=== PATIENT | female | born 1965 ===

== ENCOUNTER → 2020-05-27 13:54 | Outpatient (BNVA) | payer MEDICAID, SELFPAY | PROVIDERS: PCP Internal Medicine; Referring Provider Internal Medicine; Visit Provider Surgery | DX: E66.9 Obesity, unspecified (principal); Z68.32 Body mass index [BMI] 32.0-32.9, adult; K91.2 Postsurgical malabsorption, not elsewhere classified; Z90.3 Acquired absence of stomach [part of]; Z98.84 Bariatric surgery status | CPT/HCPCS: 99212 ==

== ENCOUNTER 2020-12-10 09:57 | Outpatient (REF) | payer MEDICAID, SELFPAY ==
[2020-12-10 11:43] LABS: MANUAL DIFF FLAG NO
[2020-12-10 12:04] LABS: Basophils Percent Auto 0.2 % (0-2); Eosinophils Absolute Auto 0.1 X10*3/uL (0.0-0.4); Eosinophils Percent Auto 0.7 % (0-4); Hematocrit 36.2 % (37-47); Hemoglobin 11.1 g/dl (12.0-16.0); Imm Gran Abs Auto 0.04 X10*3/uL (0.00-0.03); Imm Gran Pct Auto 0.5 % (0.0-0.4); Lymphocytes Absolute Auto 2.4 X10*3/uL (1.2-4.9); Lymphocytes Percent Auto 28.1 % (20-40); Mean Corpuscular HGB Conc 30.7 g/dl (31.0-35.0); Mean Corpuscular Hemoglobin 26.9 pg (27.0-33.0); Mean Corpuscular Volume 87.7 fL (80-98); Mean Platelet Volume 11.5 fL (9.4-12.3); Monocytes Absolute Auto 0.4 X10*3/uL (0.1-1.2); Monocytes Percent Auto 4.3 % (2-11); Neutrophils Absolute Auto 5.6 X10*3/uL (2.0-8.3); Neutrophils Percent Auto 66.2 % (45-73); Platelet Count 177 X10*3/uL (160-400); Red Blood Count 4.13 X10*6/uL (4.20-5.50); White Blood Count 8.5 X10*3/uL (4.8-10.8)
[2020-12-10 12:17] LABS: Estimated Average Glucose 88 mg/dL; Hemoglobin A1c % 4.7 %
[2020-12-10 12:35] LABS: Alanine Aminotransferase 33 U/L (0-31); Albumin Level 3.7 g/dL (3.5-5.0); Alkaline Phosphatase 153 U/L (39-117); Anion Gap 11 (12-20); Aspartate Amino Transferase 44 U/L (5-31); Bilirubin Total 0.5 mg/dL (0.0-1.0); Blood Urea Nitrogen 17 mg/dL (9-16); C Reactive Protein 0.03 mg/dL (< or = 0.50); Calcium 8.8 mg/dL (8.4-10.2); Carbon Dioxide 20 mmol/L (22-29); Chloride 115 mmol/L (96-108); Cholesterol 148 mg/dL; Estimated Glomerular Filt Rate > 60; Glucose Fasting 89 mg/dL (60-99); HDL Cholesterol 79 mg/dL; Iron 73 mcg/dL (30-160); LDL Cholesterol Calculated 53 mg/dl; Percent Iron Saturation 23 % (15-50); Potassium 3.8 mmol/L (3.3-5.1); Sodium 142 mmol/L (135-145); Total Iron Binding Capacity 314 mcg/dL (228-428); Total Protein 6.3 g/dL (6.5-8.0); Triglycerides 83 mg/dL; Unsaturated Iron Binding 241 ug/dL
[2020-12-10 12:42] LABS: Thyroid Stimulating Hormone 0.58 uIU/mL (0.32-4.0)
[2020-12-10 12:45] LABS: Ferritin 42 ng/mL (10-250); TSH reflex Free T4 0.49 uIU/mL (0.32-4.0); Vitamin D 25-OH Total 18.2 ng/mL (>30)
[2020-12-10 12:57] LABS: Folate 17.2 ng/mL (> or = 4.0); Vitamin B12 636 pg/mL (200-900)
[2020-12-11 10:01] LABS: Insulin Level Total 4.7 uIU/mL
[2020-12-12 14:01] LABS: PTHI 63 pg/mL (14-64)
[2020-12-13 13:12] LABS: Vitamin B1 66 nmol/L (8-30)
[2020-12-13 16:51] LABS: Zinc 76 mcg/dL (60-130)
[2020-12-15 20:27] LABS: Vitamin A 49 mcg/dL (38-98)
== END 2020-12-10 09:58 | disposition home or self-care (01) ==
LOC: HO.LAB 09:57
PROVIDERS: Surgery; PCP Internal Medicine; Visit Provider Physician Assistant
DX: Z01.818 Encounter for other preprocedural examination (principal); E66.01 Morbid (severe) obesity due to excess calories; Z68.32 Body mass index [BMI] 32.0-32.9, adult; K91.2 Postsurgical malabsorption, not elsewhere classified; L98.7 Excessive and redundant skin and subcutaneous tissue; Z98.84 Bariatric surgery status; Z90.3 Acquired absence of stomach [part of]
CPT/HCPCS: 36415; 80053; 80061; 82306; 82607; 82728; 82746; 83036; 83525; 83540; 83970; 84425; 84443; 84590; 84630; 85025; 86140; 99212

== ENCOUNTER 2021-05-16 02:58 | Inpatient (IN) | payer MEDICAID, SELFPAY ==
[2021-05-16] VITALS (7 sets, daily range): BP systolic 109–129; BP diastolic 47–78; PULSE 60–79; RESP 14–19; TEMP 36.8–37.1; O2SAT 98–100; BMI 31.9
--- NOTE | ~2021-05-16 | CT_ITS ---
EXAMINATION: CT ABDOMEN AND PELVIS WITH CONTRAST CLINICAL INFORMATION: Follow-up partial SBO status post GBP COMPARISON: CT 05/16/2021 TECHNIQUE: Multidetector volumetric images were obtained from the superior aspect of the liver through the pubic symphysis following administration 85 mL of Omnipaque 350 intravenous contrast. Sagittal and coronal reformatted images were obtained on the technologist's workstation. Oral contrast: Yes This CT examination was performed using dose optimization techniques as appropriate, variously including the following: *Automated exposure control *Adjustment of mA and/or kV according to patient size (this includes techniques or standardized protocols for targeted exams where dose is matched to indication/reason for exam; i.e. extremities or head) *Use of iterative reconstruction technique DLP: 802 mGy-cm FINDINGS: LUNG BASES: The visualized lung bases are unremarkable. LIVER, GALLBLADDER, AND BILIARY TREE: The liver is normal in size, shape, and attenuation. No focal hepatic lesion or biliary ductal dilatation is present. The gallbladder is surgically absent. PANCREAS: Unremarkable. SPLEEN: Unremarkable. ADRENAL GLANDS: Unremarkable. KIDNEYS AND URETERS: The kidneys are normal in size, shape, and attenuation. No hydronephrosis, hydroureter, or calculi seen. No perinephric stranding. BLADDER: Question mild circumferential bladder wall thickening. No nodularity or bladder calculi. Correlation with urinalysis may be of benefit. GASTROINTESTINAL TRACT: Distal esophagus is unremarkable. Post surgical changes relating to Zane-en-Y gastric bypass are again noted. The small bowel small bowel anastomosis is now located within the left lower quadrant whereas in the previous study it was located in the right lower quadrant. There is significantly reduced mesenteric edema when compared with the prior study, though a small amount of edema remains. The previously described interloop free fluid is no longer seen and there has been clearance of the fecalized small bowel content. There is contrast within the colon reaching to the level of the splenic flexure. ABDOMINAL WALL: Small fat-containing periumbilical hernia. LYMPH NODES: Mildly prominent mesenteric lymph nodes similar to prior. No retroperitoneal, pelvic or abdominal lymphadenopathy seen. VASCULAR: Unremarkable. PELVIC VISCERA: The uterus and adnexa are unremarkable. OSSEOUS STRUCTURES: Post surgical changes from L5-S1 discectomy are again noted as well as the left flank neurostimulator which is unchanged. A left flank neurostimulator CT/CT abdomen pelvis w con IMPRESSION: Decompression of the small bowel since the previous study with apparent resolution of the torsed mesentery in the right lower quadrant. The jejunal jejunal anastomosis is now located within the left hemiabdomen. The previously seen partial obstruction may likely have been secondary to an internal hernia which has reduced. There is now decreased mesenteric edema. Mild circumferential bladder wall thickening of uncertain significance without a focal lesion or calculus seen. Correlation with urinalysis findings could be of benefit. Fleischner guidelines were followed.
--- NOTE | ~2021-05-16 | CT_ITS ---
EXAMINATION: CT ABDOMEN AND PELVIS WITH CONTRAST CLINICAL INFORMATION: Epigastric pain. COMPARISON: GI series 04/06/2019. CT abdomen pelvis 06/20/2018. TECHNIQUE: Multidetector volumetric images were obtained from the superior aspect of the liver through the pubic symphysis following administration 85 mL of Omnipaque 350 intravenous contrast. Sagittal and coronal reformatted images were obtained on the technologist's workstation. Oral contrast: No This CT examination was performed using dose optimization techniques as appropriate, variously including the following: *Automated exposure control *Adjustment of mA and/or kV according to patient size (this includes techniques or standardized protocols for targeted exams where dose is matched to indication/reason for exam; i.e. extremities or head) *Use of iterative reconstruction technique DLP: 888 mGy-cm FINDINGS: LUNG BASES: The visualized lung bases are unremarkable. LIVER, GALLBLADDER, AND BILIARY TREE: The liver is normal in size, shape, and attenuation. No focal hepatic lesion or biliary ductal dilatation is present. Cholecystectomy clips are present. PANCREAS: Unremarkable. SPLEEN: Unremarkable. ADRENAL GLANDS: Unremarkable. KIDNEYS AND URETERS: The kidneys are normal in size, shape, and attenuation. No hydronephrosis, hydroureter, or calculi seen. No perinephric stranding. BLADDER: Unremarkable. GASTROINTESTINAL TRACT: Moderate quantity of stool is present throughout the colon the appendix is not visualized. Reticulation of the small bowel mesentery is present within the right lower abdominal quadrant and adjacent small bowel segments are noted measuring up to 3.5 cm in diameter with relative mural hyperemia and equalization of the small bowel sulcus entericus. (Series 7 image 35). Findings are present adjacent to the anastomotic small bowel sutures within the right lower abdominal quadrant and focal twisting of the small bowel mesentery is present in this region (series 3 image 55). A gastric bypass and anterocolonic Zane-en-Y limb are noted. Trace interloop free intraperitoneal fluid is present in the right lower abdominal quadrant. No free intraperitoneal gas is noted. ABDOMINAL WALL: Periumbilical hernia containing noninflamed fat measuring 2 cm in diameter is visualized. LYMPH NODES: Normal. VASCULAR: Mild diffuse atherosclerosis. PELVIC VISCERA: Unremarkable. OSSEOUS STRUCTURES: An L5-S1 interbody device is noted. Left flank neurostimulator is noted with the electrostimulation lead traversing superiorly within the lower thoracic spine dorsal epidural space. CT/CT abdomen pelvis w con IMPRESSION: -Findings suspicious for partial small bowel obstruction secondary to either adhesions or an internal hernia within the right lower abdominal quadrant. An anterocolonic Zane-en-Y limb is noted with small bowel anastomotic sutures identified in the right lower abdominal quadrant. Twisting of the adjacent small bowel mesentery is noted with adjacent small bowel segments measuring up to 3.5 cm in diameter, exhibiting submucosal enhancement and mild adjacent interloop fluid. No free intraperitoneal gas. This result was discussed with Zoe Sage MD by telephone at 05/16/2021 6:32 AM and it was ascertained that the content and urgency of the report was understood at the time of direct communication.
--- NOTE | 2021-05-16 03:01 | ED.ABDPAIN ---
HPI - Abdominal Pain General Chief Complaint: Abdominal Pain Stated Complaint: ABD PAIN Time Seen by Provider: 05/16/21 03:01 Source: patient and EMS Mode of arrival: EMS Limitations: no limitations History of Present Illness MD elicited complaint: abdominal pain Pertinent past history: other (2019 s/p gastric bypass) Onset (ago): hour(s) (started 930pm) Pain Consistency: constant Location: epigastric Severity: moderate Quality: dull and burning Radiation: none Migration to: no migration Exacerbating factors: eating (started after she reports she ate a small bite of spicy chicken) Relieving factors: nothing Context: other (does not normally eat spicy food) Associated symptoms: denies other symptoms Related Data Home Medications Medication Instructions Recorded Confirmed acetazolamide 500 mg 500 mg PO BID 05/27/20 12/10/20 capsule,extended release calcium citrate 1,000 mg tablet 1,000 mg PO DAILY 05/27/20 12/10/20 cetirizine 10 mg capsule (Zyrtec) 10 mg PO DAILY 05/27/20 12/10/20 fluoxetine 40 mg capsule (Prozac) 40 mg PO DAILY 05/27/20 12/10/20 lurasidone 120 mg tablet (Latuda) 120 mg PO DAILY 05/27/20 12/10/20 nortriptyline 25 mg capsule 25 mg PO BEDTIME 05/27/20 12/10/20 prazosin 1 mg capsule 1 mg PO BEDTIME 05/27/20 12/10/20 topiramate 100 mg tablet (Topamax) 100 mg PO BEDTIME 05/27/20 12/10/20 trazodone 100 mg tablet 100 mg PO BEDTIME PRN 05/27/20 12/10/20 zolpidem 10 mg tablet (Ambien) 10 mg PO BEDTIME PRN 05/27/20 12/10/20 apixaban 2.5 mg tablet (Eliquis) 2.5 mg PO BID 12/10/20 12/10/20 Previous Rx's Medication Instructions Recorded pantoprazole 40 mg tablet,delayed 40 mg PO DAILY #28 tab 08/01/20 release cholecalciferol (vitamin D3) 1,250 1,250 mcg PO QWEEK #4 cap 12/11/20 mcg (50,000 unit) capsule Allergies Allergy/AdvReac Type Severity Reaction Status Date / Time amoxicillin Allergy Mild yeast Verified 12/10/20 10:05 infection gabapentin AdvReac Mild Swelling Verified 12/10/20 10:05 Meloxicam Allergy Unknown swelling Uncoded 12/10/20 10:05 Review of Systems Review of Systems Constitutional : No Weight loss, No Fever, No Chills ENT/Mouth : No sore throat, No Rhinorrhea Eyes: No Swelling, No Redness Cardiovascular : No Chest Pain, No SOB, NoEdema Respiratory : No Cough, No Sputum, No Wheezing Gastrointestinal : no Nausea, no Vomiting, positive Diarrhea, positive abdominal Pain, No Hematochezia, No Melena, no constipation Genitourinary : No Dysuria, No Urinary Frequency, No Hematuria, No Urgency Musculoskeletal : No joint pain, No Myalgias, No Joint Swelling Skin : No Skin Lesions, No rash Neuro : No Weakness, No Numbness, No Dizziness, No Headache Psych : No Anxiety/Panic, No Depression Heme/Lymph: No Bruising, No Lymphadenopathy Endocrine : No Polyuria, No Polydipsia All other systems reviewed and are negative. Physical Exam Vital Signs: Vital Signs: Last Vital Signs Temp 98.7 F 05/16/21 03:11 Pulse 64 05/16/21 06:44 Resp 15 05/16/21 06:44 BP 111/65 05/16/21 06:44 Pulse Ox 100 05/16/21 06:44 BMI result Body Mass Index 31.9 Appearance: Alert. Oriented X3. No acute distress. Eyes: Pupils equal, round and reactive to light. ENT: Pharynx normal. Neck: Normal inspection. Neck supple. CVS: Normal heart rate and rhythm. Pulses normal. Respiratory: No respiratory distress. Breath sounds normal. Abdomen: Soft and very mild epigastric pain but no mass felt or distention no rebound Skin: Skin warm and dry. Normal skin color. Normal skin turgor. Extremities: No lower extremity edema. No calf ttp Neuro: Oriented X 3. No motor deficit. No sensory deficit. Course Course Course Narrative: patient reports persistent pain worsening in epigastric area at this time given her increased pain CT scan ordered, IV morphine for pain ordered call from [facility] 631am - gastric bypass partial SBO in right lower quadrant ?adhesions - surgery was with [facility] in 2019 will put call out to Bariatric Surgery Maite ARGUELLES from bariatric surgery will review CT scan and call back with recommendations admit to bariatric surgery per Bill ARGUELLES 642am MDM - Abdominal Pain MDM Narrative Medical decision making narrative: 55 yo female with hx of bariatric surgery in 2019 here with c/o upper abdominal pain post eating a small bite of spicy chicken no n/v/d no constipation having normal stools at this time suspect some gastritis - SBO or internal hernia seems unusual given her pain started with a bite of spicy food. Labs, IV pepcid, GI cocktail and repeat exam Differential Diagnosis Differential diagnosis: Unlikely aortic dissection, bowel perforation or mesenteric ischemia Lab Data Result diagrams: 05/16/21 03:24 05/16/21 03:24 Labs: Lab Results 05/16/21 05/16/21 05/16/21 Range/Units 03:24 03:24 03:24 WBC 9.2 (4.8-10.8) X10*3/uL RBC 3.70 L (4.20-5.50) X10*6/uL Hgb 10.2 L (12.0-16.0) g/dl Hct 33.6 L (37.0-47.0) % MCV 90.8 (80.0-98.0) fL MCH 27.6 (27.0-33.0) pg MCHC 30.4 L (31.0-35.0) g/dl RDW 15.7 (11.0-16.0) % Plt Count 138 L (160-400) X10*3/uL MPV 10.4 (9.4-12.3) fL Immature Gran % (Auto) 0.2 (0.0-0.4) % Neut % (Auto) 57.9 (45-73) % Lymph % (Auto) 29.6 (20-40) % [place] % (Auto) 5.3 (2-11) % Eos % (Auto) 6.7 H (0-4) % Baso % (Auto) 0.3 (0-2) % Lymph # (Auto) 2.7 (1.2-4.9) X10*3/uL [place] # (Auto) 0.5 (0.1-1.2) X10*3/uL Eos # (Auto) 0.6 H (0.0-0.4) X10*3/uL Baso # (Auto) 0.0 (0.0-0.2) X10*3/uL Abs Immat Gran (auto) 0.02 (0.00-0.03) X10*3/uL Absolute Neuts (auto) 5.3 (2.0-8.3) x10*3/uL Absolute Nucleated RBC 0.000 (0.0-0.012) X10*3/uL Nucleated RBC % (auto) 0.0 (0.0-0.2) /100WBC Sodium 141 (135-145) mmol/L Potassium 3.9 (3.3-5.1) mmol/L Chloride 114 H (96-108) mmol/L Carbon Dioxide 22 (22-29) mmol/L Anion Gap 9 L (12-20) BUN 17 H (9-16) mg/dL Creatinine 0.81 (0.5-1.4) mg/dL Estim Creat Clear Calc 90.6 Estimated GFR > 60 Random Glucose 94 (60-115) mg/dL Calcium 8.4 (8.4-10.2) mg/dL Magnesium 2.0 (1.6-2.6) mg/dL Total Bilirubin 0.3 (0.0-1.0) mg/dL Direct Bilirubin < 0.2 (0.0-0.5) mg/dL AST 13 D (5-31) U/L ALT 15 (0-31) U/L Alkaline Phosphatase 107 D (39-117) U/L Troponin I High Sens < 3.5 (<3.5-17.0) ng/L Total Protein 5.6 L (6.5-8.0) g/dL Albumin 3.2 L (3.5-5.0) g/dL Lipase 12 (8-78) U/L ECG Data Attestation: I personally reviewed and interpreted this ECG as follows: ECG interpretation date: 05/16/21 ECG interpretation time: 03:55 Interpretation: Rate: 64 Rhythm: NSR Castaner: left, LVH Normal P waves. Normal DONNY. Normal QRS complex. ST T wave : normal no REEMA qTC: normal prior studies: no acute ischemia The study has been interpreted contemporaneously by me. Discharge Plan Discharge Clinical Impression: Partial small bowel obstruction Abdominal pain Qualifiers: Abdominal location: epigastric Qualified Code(s): R10.13 - Epigastric pain Prescriptions: No Action pantoprazole 40 mg tablet,delayed release (DR/EC) 40 mg PO DAILY Qty: 28 RF: 2 cholecalciferol (vitamin D3) 1,250 mcg (50,000 unit) capsule 1,250 mcg PO QWEEK Qty: 4 RF: 0 Zyrtec 10 mg capsule 10 mg PO DAILY RF: 0 acetazolamide 500 mg capsule, extended release 500 mg PO BID RF: 0 prazosin 1 mg capsule 1 mg PO BEDTIME RF: 0 trazodone 100 mg tablet 100 mg PO BEDTIME PRNRF: 0 topiramate [Topamax] 100 mg tablet 100 mg PO BEDTIME RF: 0 nortriptyline 25 mg capsule 25 mg PO BEDTIME RF: 0 zolpidem [Ambien] 10 mg tablet 10 mg PO BEDTIME PRNRF: 0 fluoxetine [Prozac] 40 mg capsule 40 mg PO DAILY RF: 0 Latuda 120 mg tablet 120 mg PO DAILY RF: 0 calcium citrate 1,000 mg tablet 1,000 mg PO DAILY RF: 0 Eliquis 2.5 mg tablet 2.5 mg PO BID RF: 0 PMFSH Past Medical History Attestation statement: The following information was validated with the patient. Medical History Anemia Anxiety Arthritis Back pain Carpal tunnel syndrome Depression Excess skin of upper extremity H/O nephrolithotomy with removal of calculi History of lipoma Hypercholesterolemia Lipoma Lymphedema Migraines Sleep apnea with use of continuous positive airway pressure (CPAP) Type 2 diabetes mellitus Surgical History H/O cervical discectomy History of back surgery History of Zane-en-Y gastric bypass Hx of section Hx of colonoscopy Hx of lumpectomy S/P carpal tunnel release S/P knee replacement Family History Family History Father No problems noted. Mother Arthritis Brother No problems noted. Brother No problems noted. Sister No problems noted. Sister No problems noted. Sister No problems noted. Sister No problems noted. Son No problems noted. Daughter No problems noted. Social History Social History Alcohol intake: never Patient Tobacco Use Status: Former Tobacco user Advance Directives: No Advance Directives Information Provided: No Patient : No
--- NOTE | 2021-05-16 03:15 | ECG_ITS ---
Test Reason : BRIANM Blood Pressure : / mmHG Vent. Rate : 064 BPM Atrial Rate : 064 BPM P-R Int : 122 ms QRS Dur : 092 ms QT Int : 414 ms P-R-T Axes : 054 003 012 degrees QTc Int : 427 ms Normal sinus rhythm Minimal voltage criteria for LVH, may be normal variant ( R in aVL ) Borderline ECG When compared with ECG of 28-MAR-2019 14:23, Vent. rate has decreased BY 39 BPM Referred By: Zoe Sage Electronically Signed By:ELO BELL
[2021-05-16] MEDS: Famotidine/PF 20 MG/2 ML VIAL IVPUSH ×3 (03:30→20:30)
[2021-05-16] MEDS: 0.9 % Sodium Chloride 1,000 ML 999 ML IVCONT (03:30)
[2021-05-16] MEDS: Magnesium Hydrox/Alum Hydrox 30 ML ORAL.SUSP 15 ML PO (03:30)
[2021-05-16 03:31] LABS: MANUAL DIFF FLAG NO
[2021-05-16 03:32] LABS: Basophils Percent Auto 0.3 % (0-2); Eosinophils Absolute Auto 0.6 X10*3/uL (0.0-0.4); Eosinophils Percent Auto 6.7 % (0-4); Hematocrit 33.6 % (37.0-47.0); Hemoglobin 10.2 g/dl (12.0-16.0); Imm Gran Abs Auto 0.02 X10*3/uL (0.00-0.03); Imm Gran Pct Auto 0.2 % (0.0-0.4); Lymphocytes Absolute Auto 2.7 X10*3/uL (1.2-4.9); Lymphocytes Percent Auto 29.6 % (20-40); Mean Corpuscular HGB Conc 30.4 g/dl (31.0-35.0); Mean Corpuscular Hemoglobin 27.6 pg (27.0-33.0); Mean Corpuscular Volume 90.8 fL (80.0-98.0); Mean Platelet Volume 10.4 fL (9.4-12.3); Monocytes Absolute Auto 0.5 X10*3/uL (0.1-1.2); Monocytes Percent Auto 5.3 % (2-11); Neutrophils Absolute Auto 5.3 x10*3/uL (2.0-8.3); Neutrophils Percent Auto 57.9 % (45-73); Platelet Count 138 X10*3/uL (160-400); Red Cell Distribution Width 15.7 % (11.0-16.0); White Blood Count 9.2 X10*3/uL (4.8-10.8)
[2021-05-16] MEDS: Lidocaine HCl Viscous 2 % 15 ML SOLUTION MUCOUS MEM (03:34)
[2021-05-16 03:51] LABS: Troponin-I High Sensitivity < 3.5 ng/L (<3.5-17.0)
[2021-05-16 03:59] LABS: Alanine Aminotransferase 15 U/L (0-31); Albumin Level 3.2 g/dL (3.5-5.0); Alkaline Phosphatase 107 U/L (39-117); Anion Gap 9 (12-20); Aspartate Amino Transferase 13 U/L (5-31); Bilirubin Direct < 0.2 mg/dL (0.0-0.5); Bilirubin Total 0.3 mg/dL (0.0-1.0); Blood Urea Nitrogen 17 mg/dL (9-16); Calcium 8.4 mg/dL (8.4-10.2); Carbon Dioxide 22 mmol/L (22-29); Chloride 114 mmol/L (96-108); Creatinine Clr Calc Pharmacy 90.6; Estimated Glomerular Filt Rate > 60; Glucose Random 94 mg/dL (60-115); Lipase 12 U/L (8-78); Potassium 3.9 mmol/L (3.3-5.1); Sodium 141 mmol/L (135-145); Total Protein 5.6 g/dL (6.5-8.0)
[2021-05-16] MEDS: iohexoL 350 MG/ML 100 ML INFUS..BTL 85 ML IV (05:24)
[2021-05-16] MEDS: Morphine Sulfate 4 MG/ML CARTRIDGE IVPUSH (05:35)
[2021-05-16 06:57] LABS: COVID-19 Test Negative (Negative)
[2021-05-16] MEDS: HYDROmorphone HCl 0.5 MG/0.5 ML SYRINGE IVPUSH (08:00)
[2021-05-16] MEDS: Lactated Ringers 1,000 ML 150 ML IVCONT ×2 (08:07→15:29)
--- NOTE | 2021-05-16 08:08 | PM.HPGS ---
History of Present Illness History of Present Illness Date of Service: 05/16/21 Chief complaint: Abdominal pain Narrative: Yaneth Ware is a 55 year old female who is s/p RNYGBP with Dr Escamilla at [facility] [place], patient states she initially had nausea and vomiting for the first 3 months was given a liquid to drink for 2 months, (carafate?) and this resolved over time. She states she has been doing very well sicnce then, no subsequent GI procedures, and has lost about 150 lbs. 2 days ago she started to have some epigastric discomfort and yesterday she ate some chicken around 6pm had minimal discomfort afterwards but was awakened by sever RLQ pain at 2 am. She denies any emesis or diarrhea. States last BM was yesterday afternoon and has had flatus since then. Review of Systems Review of Systems: see HPI Yes all other systems are reviewed and are negative Constitutional: Constitutional: Reports as per HPI Cardiovascular: Cardiovascular: Reports no additional cardiovascular complaints Respiratory: Respiratory: Reports no additional respiratory complaints Gastrointestinal: Gastrointestinal: Reports as per HPI Genitourinary: Genitourinary: Reports no additional female genitourinary complaints Musculoskeletal: Musculoskeletal: Reports no additional musculoskeletal complaints [facility] Past Medical History Medical History Anemia Anxiety Arthritis Back pain Carpal tunnel syndrome Depression Excess skin of upper extremity H/O nephrolithotomy with removal of calculi History of lipoma Hypercholesterolemia Lipoma Lymphedema Migraines Sleep apnea with use of continuous positive airway pressure (CPAP) Type 2 diabetes mellitus Family History Family History Father No problems noted. Mother Arthritis Brother No problems noted. Brother No problems noted. Sister No problems noted. Sister No problems noted. Sister No problems noted. Sister No problems noted. Son No problems noted. Daughter No problems noted. Surgical History Surgical History H/O cervical discectomy History of back surgery History of Zane-en-Y gastric bypass Hx of section Hx of colonoscopy Hx of lumpectomy S/P carpal tunnel release S/P knee replacement Social History Social History Alcohol intake: never Patient Tobacco Use Status: Former Tobacco user Advance Directives: No Advance Directives Information Provided: No Patient : No Meds Allergies Allergy/AdvReac Type Severity Reaction Status Date / Time amoxicillin Allergy Mild yeast Verified 12/10/20 10:05 infection gabapentin AdvReac Mild Swelling Verified 12/10/20 10:05 Meloxicam Allergy Unknown swelling Uncoded 12/10/20 10:05 Active Medications: Current Medications Famotidine (Famotidine/Pf 20 Mg/2 Ml Vial) 20 mg IVPUSH BID [facility] Hydromorphone HCl (Hydromorphone Hcl 0.5 Mg/0.5 Ml Syringe) 0.25 mg IVPUSH Q4H PRN; Protocol PRN Reason: Pain, Moderate (Pain Scale 4-6 Sodium Chloride (Ns) 1,000 mls @ 100 mls/hr IVCONT .Q10H [facility] Last Admin: 05/16/21 08:06 Dose: Not Given Documented by: Lactated Ringer's (Lr) 1,000 mls @ 150 mls/hr IVCONT .Q6H40M [facility] Last Admin: 05/16/21 08:07 Dose: 150 mls/hr Documented by: Ondansetron HCl (Ondansetron Hcl 4 Mg/2 Ml Vial) 4 mg IVPUSH Q8H PRN PRN Reason: Nausea Pharmacy Consult (Consult Rx Perform Med Rec) 1 each MISCELLANE ONCE PRN PRN Reason: Consult order Sodium Chloride (0.9 % Sodium Chloride Flush 3 Ml Syringe) 3 ml IVFLUSH QSHIFT [facility] Last Admin: 05/16/21 08:01 Dose: Not Given Documented by: Home Medications Medication Instructions Recorded Confirmed Last Taken Type acetazolamide 500 mg 500 mg PO BID 05/27/20 12/10/20 Unknown History capsule,extended release calcium citrate 1,000 mg tablet 1,000 mg PO DAILY 05/27/20 12/10/20 Unknown History cetirizine 10 mg capsule (Zyrtec) 10 mg PO DAILY 05/27/20 12/10/20 Unknown History fluoxetine 40 mg capsule (Prozac) 40 mg PO DAILY 05/27/20 12/10/20 Unknown History lurasidone 120 mg tablet (Latuda) 120 mg PO DAILY 05/27/20 12/10/20 Unknown History nortriptyline 25 mg capsule 25 mg PO BEDTIME 05/27/20 12/10/20 Unknown History prazosin 1 mg capsule 1 mg PO BEDTIME 05/27/20 12/10/20 Unknown History topiramate 100 mg tablet (Topamax) 100 mg PO BEDTIME 05/27/20 12/10/20 Unknown History trazodone 100 mg tablet 100 mg PO BEDTIME PRN 05/27/20 12/10/20 Unknown History zolpidem 10 mg tablet (Ambien) 10 mg PO BEDTIME PRN 05/27/20 12/10/20 Unknown History Physical Exam Vital Signs: Vital Signs: Last Vital Signs Temp 98.2 F 05/16/21 07:04 Pulse 76 05/16/21 07:04 Resp 14 05/16/21 07:04 BP 117/72 05/16/21 07:04 Pulse Ox 100 05/16/21 07:04 BMI result Body Mass Index 31.9 Const: General: cooperative, healthy appearing, comfortable, well developed, alert, awake and Physically active Nutritional Appearance: average body habitus Orientation/consciousness: patient oriented x3 Limitations: no limitations Resp: Effort & Inspection: normal respiratory effort Auscultation: clear to auscultation bilaterally Cardio: Rate: regular rate Rhythm: regular rhythm Heart sounds: normal S1 and S2 GI: Inspection: Yes normal to inspection, No distended and Yes incision (well healed laparoscpic incisions and vertical low abd) Palpation (GI): Soft to palpation, Tenderness to palpation present (GI) (tender epigastrium and right side of abd), Guarding due to palpation present (GI) (mnimal), not rigid, no hernias and no masses Auscultation: other (hyperactive BS right side) Rectal Exam - Female: deferred Neuro: General: patient oriented x3 Extrem: General: Yes normal to inspection, No no calf tenderness and No edema Results Results Labs: Short CBC 05/16/21 Range/Units 03:24 WBC 9.2 (4.8-10.8) X10*3/uL Hgb 10.2 L (12.0-16.0) g/dl Hct 33.6 L (37.0-47.0) % Plt Count 138 L (160-400) X10*3/uL BMP 05/16/21 03:24 Sodium 141 Potassium 3.9 Chloride 114 H Carbon Dioxide 22 BUN 17 H Creatinine 0.81 Calcium 8.4 Liver Function 05/16/21 Range/Units 03:24 Total Bilirubin 0.3 (0.0-1.0) mg/dL Direct Bilirubin < 0.2 (0.0-0.5) mg/dL AST 13 D (5-31) U/L ALT 15 (0-31) U/L Alkaline Phosphatase 107 D (39-117) U/L Albumin 3.2 L (3.5-5.0) g/dL CT scan - chest: report reviewed and image reviewed Assessment and Plan (1) Abdominal pain: Qualifiers: Abdominal location: epigastric Qualified Code(s): R10.13 - Epigastric pain Status: Acute (2) Partial small bowel obstruction: Status: Acute (3) History of Zane-en-Y gastric bypass: Status: Acute 55 yo female s/p GBP over 2 years ago with sudden onset of RLQ pain overnight. VSS, Labs wnl except for low protein and anemia. Lactic acid pending. CT abd reveals possible mesenteric twisting of SB which may represent internal hernia around j-j anastamosis. Physical exam is rather benign, pateint has been examined by Dr Victor who will decide treatment course. Admit to Dr Victor service, IVF, NPO, await lactic acid results and possible need for laparoscopic reduction of internal hernia. Quality Stroke Does the patient have a stroke diagnosis?: No VTE Prior VTE?: No VTE Risk Level:: Surgical - low VTE Device Contraindication: N/A - Device Ordered VTE Drug Contraindication: Treatment Not Indicated Procedures Date of Service Date of Service: 05/16/21
--- NOTE | 2021-05-16 08:18 | PC.NURSE ---
bariatric pa has been in to evaluate patient
[2021-05-16 08:42] LABS: Lactic Acid 0.8 mmol/L (0.5-2.0)
[2021-05-16 08:45] LABS: Appearance Urine CLOUDY; Color Urine YELLOW; Glucose Urine UA NEG (NEG); Leukocyte Esterase Urine NEG (NEG); Nitrite Urine NEG (NEG); PH 6.5 (5.0-8.0); Urine Blood NEG (NEG); Urine Ketones NEG (NEG); Urine Protein NEG (NEG-TRACE)
[2021-05-16] MEDS: Cyanocobalamin (Vitamin B-12) 1,000 MCG/ML VIAL 1000 MCG IM (10:37)
[2021-05-16] MEDS: Thiamine HCL 100 MG in 0.9 % Sodium Chloride 100 ML 202 MG IV (11:11)
[2021-05-16] MEDS: HYDROmorphone HCl 0.5 MG/0.5 ML SYRINGE 0.25 MG IVPUSH ×2 (11:12→20:30)
--- NOTE | 2021-05-16 13:34 | PHA.MEDREC ---
Pharmacy Consult ? Medication Reconciliation Pharmacy has completed the medication reconciliation. There are no remarkable issues for provider's attention. Contact [facility] and [facility] to confirm medications. Pantoprazole was DC'd. Patient reports she does not take Vitamin D or B, propranolol 20mg, aspirin, gabapentin, and ferrous gluconate/ Luann Rivas, BrantD
[2021-05-16] MEDS: Folic Acid 1 MG in 0.9 % Sodium Chloride 50 ML 100.4 MG IV (13:50)
--- NOTE | 2021-05-16 19:29 | PC.NURSE ---
pt awakes, respirations easy, n/l. pt c/o mid abd pain rating pain 6/10. pt up to restroom with steady even gait. no other complaints from pt.
--- NOTE | 2021-05-16 20:39 | PC.NURSE ---
pt medicated for pain rating 8/10 to mid abd area. pt resting comfortably.
--- NOTE | 2021-05-16 21:17 | PC.NURSE ---
Admission assessment completed by this RN. Pt a/o x4, reports generalized upper abdominal pain, pt medicated by primary RN with Dilaudid. Pt NPO, VSS, aware of plan of care. Awaiting for a bed on [facility].
[2021-05-17] VITALS (11 sets, daily range): BP systolic 102–142; BP diastolic 45–68; PULSE 60–73; RESP 14–18; TEMP 36.6–36.8; O2SAT 96–100
[2021-05-17] MEDS: HYDROmorphone HCl 0.5 MG/0.5 ML SYRINGE 0.25 MG IVPUSH ×5 (03:27→22:23)
[2021-05-17] MEDS: ondansetron HCL 4 MG/2 ML VIAL IVPUSH ×2 (03:33→18:32)
[2021-05-17 04:38] LABS: MANUAL DIFF FLAG NO
[2021-05-17 04:41] LABS: Basophils Percent Auto 0.3 % (0-2); Eosinophils Absolute Auto 0.3 X10*3/uL (0.0-0.4); Eosinophils Percent Auto 4.3 % (0-4); Hematocrit 31.2 % (37.0-47.0); Hemoglobin 9.5 g/dl (12.0-16.0); Imm Gran Abs Auto 0.02 X10*3/uL (0.00-0.03); Imm Gran Pct Auto 0.3 % (0.0-0.4); Lymphocytes Absolute Auto 2.9 X10*3/uL (1.2-4.9); Lymphocytes Percent Auto 37.7 % (20-40); Mean Corpuscular HGB Conc 30.4 g/dl (31.0-35.0); Mean Corpuscular Hemoglobin 27.6 pg (27.0-33.0); Mean Corpuscular Volume 90.7 fL (80.0-98.0); Mean Platelet Volume 10.6 fL (9.4-12.3); Monocytes Absolute Auto 0.4 X10*3/uL (0.1-1.2); Neutrophils Percent Auto 52.4 % (45-73); Platelet Count 112 X10*3/uL (160-400); Red Blood Count 3.44 X10*6/uL (4.20-5.50); Red Cell Distribution Width 15.7 % (11.0-16.0); White Blood Count 7.6 X10*3/uL (4.8-10.8)
[2021-05-17 05:06] LABS: Anion Gap 8 (12-20); Blood Urea Nitrogen 13 mg/dL (9-16); Calcium 8.1 mg/dL (8.4-10.2); Carbon Dioxide 24 mmol/L (22-29); Chloride 110 mmol/L (96-108); Creatinine Clr Calc Pharmacy 99.2; Estimated Glomerular Filt Rate > 60; Glucose Random 73 mg/dL (60-115); Potassium 3.4 mmol/L (3.3-5.1); Sodium 139 mmol/L (135-145)
--- NOTE | 2021-05-17 05:09 | PC.NURSE ---
Hospitalist ordered LR @ 150ml/hr. not NS. LR up and running on pump w/o difficulty. site intact. Pt sleeping at this time and in NAD. will continue to monitor pt.
[2021-05-17] MEDS: Lactated Ringers 1,000 ML 150 ML IVCONT (06:14)
[2021-05-17] MEDS: 0.9 % Sodium Chloride Flush 3 ML SYRINGE IVFLUSH (07:23)
[2021-05-17] MEDS: Famotidine/PF 20 MG/2 ML VIAL IVPUSH ×2 (09:13→19:30)
[2021-05-17] MEDS: Thiamine HCL 100 MG in 0.9 % Sodium Chloride 100 ML 202 MG IV (09:13)
--- NOTE | 2021-05-17 10:04 | P.PNGS_ITS ---
Subjective Subjective Date of Service: 05/17/21 Interval history: HD #1 for partial SBO s/p RNYGBP. Pt states that her pain is only partially relieved with dilaudid, has not been ambulating much. She states she has same, possible worse pain in epigastrium that radiates to RLQ, no nausea, emesis, flatus or BM's. She states she has some pressure discomfort when urinating. Urinalysis normal on admission. Physical Exam Vital Signs: Vital Signs: Last Vital Signs Temp 98.2 F 05/17/21 07:24 Pulse 62 05/17/21 07:24 Resp 16 05/17/21 07:31 BP 118/45 L 05/17/21 07:24 Pulse Ox 96 05/17/21 07:24 BMI result Body Mass Index 31.9 Const: Other: Upon arrival into room, patient talking comfortably on the phone. General: cooperative, healthy appearing and no acute distress Orientation/consciousness: patient oriented x3 Limitations: no limitations GI: Inspection: Yes normal to inspection and No distended Palpation (GI): Soft to palpation, nontender (tender to deep palpation over epigstrium, RLQ and less so over LLQ), Guarding due to palpation present (GI), not rigid and no masses Neuro: General: patient oriented x3 Extrem: Other: no compression stockings in place Objective Data Active Medications Famotidine (Famotidine/Pf 20 Mg/2 Ml Vial) 20 mg IVPUSH BID [facility] Last Admin: 05/17/21 09:13 Dose: 20 mg Documented by: SAMIRA Hydromorphone HCl (Hydromorphone Hcl 0.5 Mg/0.5 Ml Syringe) 0.25 mg IVPUSH Q4H PRN; Protocol PRN Reason: Pain, Moderate (Pain Scale 4-6 Last Admin: 05/17/21 07:31 Dose: 0.25 mg Documented by: SAMIRA Sodium Chloride (Ns) 1,000 mls @ 100 mls/hr IVCONT .Q10H [facility] Last Admin: 05/17/21 06:13 Dose: Not Given Documented by: CATHY Non-Admin Reason: Physician Held Med Thiamine HCl 100 mg/ Sodium (Chloride) 101 mls @ 202 mls/hr IV DAILY [facility] Last Admin: 05/17/21 09:13 Dose: 202 mls/hr Documented by: SAMIRA Folic Acid 1 mg/ Sodium (Chloride) 50.2 mls @ 100.4 mls/hr IV DAILY [facility] Last Infusion: 05/16/21 14:45 Dose: 0 mls/hr Documented by: ANGELES Potassium Chloride/Sodium Chloride () 20 meq in 1,000 mls @ 125 mls/hr IVCONT .Q8H [facility] Ondansetron HCl (Ondansetron Hcl 4 Mg/2 Ml Vial) 4 mg IVPUSH Q8H PRN PRN Reason: Nausea Last Admin: 05/17/21 03:33 Dose: 4 mg Documented by: CATHY Pharmacy Consult (Consult Rx Perform Med Rec) 1 each MISCELLANE ONCE PRN PRN Reason: Consult order Sodium Chloride (0.9 % Sodium Chloride Flush 3 Ml Syringe) 3 ml IVFLUSH QSHIFT [facility] Last Admin: 05/17/21 07:23 Dose: 3 ml Documented by: SAMIRA Labs CBC & Chem 7: 05/17/21 04:07 05/17/21 04:07 Labs: Laboratory Results - last 24 hr 05/17/21 05/17/21 04:07 04:07 MCV 90.7 MCH 27.6 MCHC 30.4 L RDW 15.7 Plt Count 112 L MPV 10.6 Immature Gran % (Auto) 0.3 Neut % (Auto) 52.4 Lymph % (Auto) 37.7 Johnston % (Auto) 5.0 Eos % (Auto) 4.3 H Baso % (Auto) 0.3 Lymph # (Auto) 2.9 Johnston # (Auto) 0.4 Eos # (Auto) 0.3 Baso # (Auto) 0.0 Abs Immat Gran (auto) 0.02 Absolute Neuts (auto) 4.0 Absolute Nucleated RBC 0.000 Nucleated RBC % (auto) 0.0 Anion Gap 8 L Estim Creat Clear Calc 99.2 Estimated GFR > 60 Random Glucose 73 Calcium 8.1 L Procedures Date of Service Date of Service: 05/17/21 Progress Note: A&P Assessment and plan (1) Partial small bowel obstruction: Status: Acute Assessment and Plan: HD #1, patient remains in ED due to nursing shortage on med surg floors. Pt has increased complaints of epigastric pain, and pain is now reported more in RLQ and less in LLQ. VSS, labs normal without increased neutrophils, including normal lactic acid yesterday. She is tender to deep palpation with minimal guarding when distracted. Continue NPO, IVF, labs ordered for tomorrow morning. Needs compression stockings due to limited ambulation. Case discussed with Dr Victor and we will repeat CT scan abd/pelvis today to re evaluate area of partial obstruction on CT yesterday. Patient is aware ofplan for today. (2) Abdominal pain: Status: Acute (3) History of Zane-en-Y gastric bypass: Status: Acute Fall Risk Details Current Medications: Current Medications Famotidine (Famotidine/Pf 20 Mg/2 Ml Vial) 20 mg IVPUSH BID [facility] Last Admin: 05/17/21 09:13 Dose: 20 mg Documented by: Hydromorphone HCl (Hydromorphone Hcl 0.5 Mg/0.5 Ml Syringe) 0.25 mg IVPUSH Q4H PRN; Protocol PRN Reason: Pain, Moderate (Pain Scale 4-6 Last Admin: 05/17/21 07:31 Dose: 0.25 mg Documented by: Sodium Chloride (Ns) 1,000 mls @ 100 mls/hr IVCONT .Q10H [facility] Last Admin: 05/17/21 06:13 Dose: Not Given Documented by: Thiamine HCl 100 mg/ Sodium (Chloride) 101 mls @ 202 mls/hr IV DAILY [facility] Last Admin: 05/17/21 09:13 Dose: 202 mls/hr Documented by: Folic Acid 1 mg/ Sodium (Chloride) 50.2 mls @ 100.4 mls/hr IV DAILY [facility] Last Infusion: 05/16/21 14:45 Dose: Infused Documented by: Potassium Chloride/Sodium Chloride () 20 meq in 1,000 mls @ 125 mls/hr IVCONT .Q8H [facility] Ondansetron HCl (Ondansetron Hcl 4 Mg/2 Ml Vial) 4 mg IVPUSH Q8H PRN PRN Reason: Nausea Last Admin: 05/17/21 03:33 Dose: 4 mg Documented by: Pharmacy Consult (Consult Rx Perform Med Rec) 1 each MISCELLANE ONCE PRN PRN Reason: Consult order Sodium Chloride (0.9 % Sodium Chloride Flush 3 Ml Syringe) 3 ml IVFLUSH QSHIFT [facility] Last Admin: 05/17/21 07:23 Dose: 3 ml Documented by: Time Spent With Patient Time: Total time spent is greater than 50% in coordination of care (as documented) at patient's floor/unit and/or counseling patient: Time with patient: 25 - 35 minutes Quality Stroke Does the patient have a stroke diagnosis?: No VTE Prior VTE?: No VTE Risk Level:: Surgical - low VTE Device Contraindication: N/A - Device Ordered VTE Drug Contraindication: Treatment Not Indicated
[2021-05-17] MEDS: Folic Acid 1 MG in 0.9 % Sodium Chloride 50 ML 100.4 MG IV (10:43)
[2021-05-17] MEDS: KCl 20 mEq in 0.45% Sod 20 MEQ/1,000 ML IV.SOLN 125 MEQ IVCONT ×2 (11:24→20:41)
[2021-05-17] MEDS: iohexoL 350 MG/ML 100 ML INFUS..BTL IV (13:49)
[2021-05-17] MEDS: Barium Sulfate Oral (Vanilla) 450 ML ORAL.SUSP 900 ML PO (13:51)
[2021-05-18] VITALS (7 sets, daily range): BP systolic 111–144; BP diastolic 56–76; PULSE 58–71; RESP 16–18; TEMP 36–36.9; O2SAT 96–100
[2021-05-18] MEDS: KCl 20 mEq in 0.45% Sod 20 MEQ/1,000 ML IV.SOLN 125 MEQ IVCONT ×2 (03:48→14:34)
[2021-05-18] MEDS: ondansetron HCL 4 MG/2 ML VIAL IVPUSH (05:24)
[2021-05-18] MEDS: HYDROmorphone HCl 0.5 MG/0.5 ML SYRINGE 0.25 MG IVPUSH ×3 (05:24→20:33)
[2021-05-18 06:17] LABS: Anion Gap 10 (12-20); Blood Urea Nitrogen 6 mg/dL (9-16); Calcium 8.4 mg/dL (8.4-10.2); Carbon Dioxide 25 mmol/L (22-29); Chloride 109 mmol/L (96-108); Creatinine Clr Calc Pharmacy 109.6; Estimated Glomerular Filt Rate > 60; Glucose Random 72 mg/dL (60-115); Sodium 140 mmol/L (135-145)
[2021-05-18] MEDS: Famotidine/PF 20 MG/2 ML VIAL IVPUSH ×2 (09:16→20:33)
[2021-05-18] MEDS: Folic Acid 1 MG in 0.9 % Sodium Chloride 50 ML 100.4 MG IV (09:19)
[2021-05-18] MEDS: Thiamine HCL 100 MG in 0.9 % Sodium Chloride 100 ML 202 MG IV (09:54)
--- NOTE | 2021-05-18 10:02 | PM.PNGS ---
Subjective Subjective Date of Service: 05/18/21 Interval history: 55 yo female HD # 2 for pSBO s/p RNYGBP. CT yesterday showed improvement of edema of SB with resolution of probable internal hernia and mesenteric twisting. Pt states her pain is improved in lower abdomen with less discomfort upon urination but still has epigastric pain. BM of solid stool x 1 last night and increase in flatus. Headache this am, but no nausea or emesis. Receiving dilauded every 6 - 8 hours and ambulating more now that she is in a bed on med surg. Physical Exam Vital Signs: Vital Signs: Last Vital Signs Temp 97.4 F 05/18/21 07:28 Pulse 63 05/18/21 07:28 Resp 18 05/18/21 07:28 BP 111/58 L 05/18/21 07:28 Pulse Ox 100 05/18/21 07:28 BMI result Body Mass Index 31.9 Const: General: cooperative, healthy appearing and no acute distress GI: Inspection: Yes normal to inspection Palpation (GI): Soft to palpation, nontender (tender over midepigastrium and very mildy in lower abd to deep palpation.), no guarding, not rigid, no hernias and no masses Extrem: Other: compression stockings in place bilaterally General: Yes normal to inspection and No calf tenderness Objective Data Active Medications Famotidine (Famotidine/Pf 20 Mg/2 Ml Vial) 20 mg IVPUSH BID [facility] Last Admin: 05/18/21 09:16 Dose: 20 mg Documented by: ANELEMA Hydromorphone HCl (Hydromorphone Hcl 0.5 Mg/0.5 Ml Syringe) 0.25 mg IVPUSH Q4H PRN; Protocol PRN Reason: Pain, Moderate (Pain Scale 4-6 Last Admin: 05/18/21 05:24 Dose: 0.25 mg Documented by: CASTILM Thiamine HCl 100 mg/ Sodium (Chloride) 101 mls @ 202 mls/hr IV DAILY [facility] Last Admin: 05/18/21 09:54 Dose: 202 mls/hr Documented by: ANELEMA Folic Acid 1 mg/ Sodium (Chloride) 50.2 mls @ 100.4 mls/hr IV DAILY [facility] Last Infusion: 05/18/21 09:53 Dose: 0 mls/hr Documented by: HO.COTEMA Potassium Chloride/Sodium Chloride () 20 meq in 1,000 mls @ 125 mls/hr IVCONT .Q8H [facility] Last Infusion: 05/18/21 09:43 Dose: 0 mls/hr Documented by: MARIANELA Ondansetron HCl (Ondansetron Hcl 4 Mg/2 Ml Vial) 4 mg IVPUSH Q8H PRN PRN Reason: Nausea Last Admin: 05/18/21 05:24 Dose: 4 mg Documented by: YAEL Pharmacy Consult (Consult Rx Perform Med Rec) 1 each MISCELLANE ONCE PRN PRN Reason: Consult order Sodium Chloride (0.9 % Sodium Chloride Flush 3 Ml Syringe) 3 ml IVFLUSH QSHIFT [facility] Last Admin: 05/18/21 07:03 Dose: Not Given Documented by: MARIANELA Non-Admin Reason: IV Running Labs CBC & Chem 7: 05/17/21 04:07 05/18/21 05:36 Labs: Laboratory Results - last 24 hr 05/18/21 05:36 Anion Gap 10 L Estim Creat Clear Calc 109.6 Estimated GFR > 60 Random Glucose [address] scan - abdomen: Radiologist's impression: Impressions Abdomen/Pelvis CT 05/17/21 13:50 IMPRESSION: Decompression of the small bowel since the previous study with apparent resolution of the torsed mesentery in the right lower quadrant. The jejunal jejunal anastomosis is now located within the left hemiabdomen. The previously seen partial obstruction may likely have been secondary to an internal hernia which has reduced. There is now decreased mesenteric edema. Mild circumferential bladder wall thickening of uncertain significance without a focal lesion or calculus seen. Correlation with urinalysis findings could be of benefit. Fleischner guidelines were followed. Procedures Date of Service Date of Service: 05/18/21 Progress Note: A&P Assessment and plan (1) Abdominal pain: Status: Acute Assessment and Plan: 55 yo woman HD #2 with resolution of pSBO most likely due to internal hernia. VSS remain stable, BMP today normal and well hydrated. I believe her epigastric discomfort is not related to the SBO or gastric ulcer, this may be due to stool in transverse colon and she is receiving famotidine bid. Will discuss starting clear bariatric liquids today with Dr Victor. Patient to ambulate at least qid. All information relayed to patient. (2) Partial small bowel obstruction: Status: Acute Assessment and Plan: Resolved (3) History of Zane-en-Y gastric bypass: Status: Acute Assessment and Plan: Assessment and Plan: Continue IV vitamin supplementation, will restart protein supplements when appropriate. Fall Risk Details Current Medications: Current Medications Famotidine (Famotidine/Pf 20 Mg/2 Ml Vial) 20 mg IVPUSH BID [facility] Last Admin: 05/18/21 09:16 Dose: 20 mg Documented by: Hydromorphone HCl (Hydromorphone Hcl 0.5 Mg/0.5 Ml Syringe) 0.25 mg IVPUSH Q4H PRN; Protocol PRN Reason: Pain, Moderate (Pain Scale 4-6 Last Admin: 05/18/21 05:24 Dose: 0.25 mg Documented by: Thiamine HCl 100 mg/ Sodium (Chloride) 101 mls @ 202 mls/hr IV DAILY [facility] Last Admin: 05/18/21 09:54 Dose: 202 mls/hr Documented by: Folic Acid 1 mg/ Sodium (Chloride) 50.2 mls @ 100.4 mls/hr IV DAILY [facility] Last Infusion: 05/18/21 09:53 Dose: Infused Documented by: Potassium Chloride/Sodium Chloride () 20 meq in 1,000 mls @ 125 mls/hr IVCONT .Q8H [facility] Last Infusion: 05/18/21 09:43 Dose: 0 mls/hr Documented by: Ondansetron HCl (Ondansetron Hcl 4 Mg/2 Ml Vial) 4 mg IVPUSH Q8H PRN PRN Reason: Nausea Last Admin: 05/18/21 05:24 Dose: 4 mg Documented by: Pharmacy Consult (Consult Rx Perform Med Rec) 1 each MISCELLANE ONCE PRN PRN Reason: Consult order Sodium Chloride (0.9 % Sodium Chloride Flush 3 Ml Syringe) 3 ml IVFLUSH QSHIFT [facility] Last Admin: 05/18/21 07:03 Dose: Not Given Documented by: Time Spent With Patient Time: Total time spent is greater than 50% in coordination of care (as documented) at patient's floor/unit and/or counseling patient: Time with patient: 25 - 35 minutes Quality Stroke Does the patient have a stroke diagnosis?: No VTE Prior VTE?: No VTE Risk Level:: Surgical - low VTE Device Contraindication: N/A - Device Ordered VTE Drug Contraindication: Treatment Not Indicated
--- NOTE | 2021-05-18 10:31 | MHC.CM.PN ---
Patient lives at home in [place]. Has a [employer] through [employer] 18hrs/wk. No equip, other services and does not drive. [employer] takes to appts. D/C plan is home w/[employer] via [employer] at D/C.
[2021-05-18] MEDS: 0.9 % Sodium Chloride Flush 3 ML SYRINGE IVFLUSH (14:34)
[2021-05-19] MEDS: HYDROmorphone HCl 0.5 MG/0.5 ML SYRINGE 0.25 MG IVPUSH ×3 (00:34→08:49)
[2021-05-19] MEDS: KCl 20 mEq in 0.45% Sod 20 MEQ/1,000 ML IV.SOLN 75 MEQ IVCONT (01:32)
[2021-05-19 03:42] VITALS: BP 124/58; PULSE 60; RESP 18; TEMP 36.1; O2SAT 100
[2021-05-19 07:04] VITALS: BP 116/58; PULSE 82; RESP 18; TEMP 36.5; O2SAT 100
--- NOTE | 2021-05-19 08:33 | P.PNGS_ITS ---
Subjective Subjective Date of Service: 05/19/21 Patient reports: no new complaints Interval history: HD # 3 for pSBO s/p RNYGBP. Patient has been tolerating clear liquid diet since yesterday without nausea, emesis and has been having less abd pain. No further BM's, flatus. Urinating without difficulty. Physical Exam Vital Signs: Vital Signs: Last Vital Signs Temp 97.7 F 05/19/21 07:04 Pulse 82 05/19/21 07:04 Resp 18 05/19/21 07:04 BP 116/58 L 05/19/21 07:04 Pulse Ox 100 05/19/21 07:04 BMI result Body Mass Index 31.9 Const: General: cooperative, healthy appearing and no acute distress GI: Inspection: Yes normal to inspection Palpation (GI): Soft to palpation, Tenderness to palpation present (GI) (minimally tender over mid epigastrium), no guarding, not rigid, no hernias and no masses Objective Data Active Medications Famotidine (Famotidine/Pf 20 Mg/2 Ml Vial) 20 mg IVPUSH BID [facility] Last Admin: 05/18/21 20:33 Dose: 20 mg Documented by: JOSE RAMON Hydromorphone HCl (Hydromorphone Hcl 0.5 Mg/0.5 Ml Syringe) 0.25 mg IVPUSH Q4H PRN; Protocol PRN Reason: Pain, Moderate (Pain Scale 4-6 Last Admin: 05/19/21 04:34 Dose: 0.25 mg Documented by: JOSE RAMON Thiamine HCl 100 mg/ Sodium (Chloride) 101 mls @ 202 mls/hr IV DAILY [facility] Last Infusion: 05/18/21 10:49 Dose: 0 mls/hr Documented by: MARIANELA Folic Acid 1 mg/ Sodium (Chloride) 50.2 mls @ 100.4 mls/hr IV DAILY [facility] Last Infusion: 05/18/21 09:53 Dose: 0 mls/hr Documented by: ANELEMA Potassium Chloride/Sodium Chloride () 20 meq in 1,000 mls @ 75 mls/hr IVCONT .[id number] [facility] Last Admin: 05/19/21 01:32 Dose: 75 mls/hr Documented by: JOSE RAMON Ondansetron HCl (Ondansetron Hcl 4 Mg/2 Ml Vial) 4 mg IVPUSH Q8H PRN PRN Reason: Nausea Last Admin: 05/18/21 05:24 Dose: 4 mg Documented by: YAEL Pharmacy Consult (Consult Rx Perform Med Rec) 1 each MISCELLANE ONCE PRN PRN Reason: Consult order Sodium Chloride (0.9 % Sodium Chloride Flush 3 Ml Syringe) 3 ml IVFLUSH QSHIFT [facility] Last Admin: 05/19/21 00:04 Dose: Not Given Documented by: JOSE RAMON Non-Admin Reason: IV Running Labs CBC & Chem 7: 05/17/21 04:07 05/18/21 05:36 Procedures Date of Service Date of Service: 05/19/21 Progress Note: A&P Assessment and plan (1) Partial small bowel obstruction: Status: Acute Assessment and Plan: 55 yo woman admitted 3days ago with pSBO most likely due to internal hernia, resolution of mesenteric twisiting and SBO with conservative treatment only. Pt is now tolerating clear liquid diet and is ready to go home. Patient will go home today and resume liquid diet only of 80 grams protien per day until all abdominal symptoms have resolved (likely 1 week). She will then restart her bariatric diet of 80 grams per day and no more than 8 oz of food at any meal. She will follow up with me in the office in about 2 weeks. (2) Abdominal pain: Status: Acute Assessment and Plan: Lower abd pain resolved, still has mid epigastric pain (3) History of Zane-en-Y gastric bypass: Status: Acute Assessment and Plan: Folllow up in office with me for nutrition recomendations. Fall Risk Details Current Medications: Current Medications Famotidine (Famotidine/Pf 20 Mg/2 Ml Vial) 20 mg IVPUSH BID [facility] Last Admin: 05/18/21 20:33 Dose: 20 mg Documented by: Hydromorphone HCl (Hydromorphone Hcl 0.5 Mg/0.5 Ml Syringe) 0.25 mg IVPUSH Q4H PRN; Protocol PRN Reason: Pain, Moderate (Pain Scale 4-6 Last Admin: 05/19/21 04:34 Dose: 0.25 mg Documented by: Thiamine HCl 100 mg/ Sodium (Chloride) 101 mls @ 202 mls/hr IV DAILY [facility] Last Infusion: 05/18/21 10:49 Dose: Infused Documented by: Folic Acid 1 mg/ Sodium (Chloride) 50.2 mls @ 100.4 mls/hr IV DAILY [facility] Last Infusion: 05/18/21 09:53 Dose: Infused Documented by: Potassium Chloride/Sodium Chloride () 20 meq in 1,000 mls @ 75 mls/hr IVCONT .[id number] [facility] Last Admin: 05/19/21 01:32 Dose: 75 mls/hr Documented by: Ondansetron HCl (Ondansetron Hcl 4 Mg/2 Ml Vial) 4 mg IVPUSH Q8H PRN PRN Reason: Nausea Last Admin: 05/18/21 05:24 Dose: 4 mg Documented by: Pharmacy Consult (Consult Rx Perform Med Rec) 1 each MISCELLANE ONCE PRN PRN Reason: Consult order Sodium Chloride (0.9 % Sodium Chloride Flush 3 Ml Syringe) 3 ml IVFLUSH QSHIFT [facility] Last Admin: 05/19/21 00:04 Dose: Not Given Documented by: Time Spent With Patient Time: Total time spent is greater than 50% in coordination of care (as documented) at patient's floor/unit and/or counseling patient: Time with patient: 15 - 24 minutes Quality Stroke Does the patient have a stroke diagnosis?: No VTE Prior VTE?: No VTE Risk Level:: Surgical - low VTE Device Contraindication: N/A - Device Ordered VTE Drug Contraindication: Treatment Not Indicated
--- NOTE | 2021-05-19 08:45 | PM.DS ---
DS: Providers Provider Date of Service: 05/19/21 Date of admission: 05/16/21 07:51 Primary care physician: Carri Reynoso MD DS: Diagnosis Discharge Diagnosis (1) Partial small bowel obstruction: Status: Acute (2) Abdominal pain: Status: Acute (3) History of Zane-en-Y gastric bypass: Status: Acute DS: Summary Hospital Course Hospital Course: 55 you woman s/p RNYGBP by Dr Escamilla in 2019, patient was admitted through the ED on 05/15/21 due to partial SBO diagnosed by CT scan. CT scan reveaaled mesenteric twisting and SB edema at J-J anastamosis likely due to internal hernia. Inocente was treaated conservatively with NPO and symptoms improved within 24 hours. She had a second abd CT on 05/17 which confirmed resoltuion of SBO. Patient had one formed BM, and was started on clear liquids on HD #2. On HD # 3 she was tolerating clear liquids and was discharged home. Time Spent with Patient Time attestation: Total time spent providing and/or coordinating discharge services: Discharge coordination time: Less than 30 minutes Quality: Stroke Does the patient have a stroke diagnosis?: No Physical Exam Vital Signs: Vital Signs: Last Vital Signs Temp 97.7 F 05/19/21 07:04 Pulse 82 05/19/21 07:04 Resp 18 05/19/21 07:04 BP 116/58 L 05/19/21 07:04 Pulse Ox 100 05/19/21 07:04 BMI result Body Mass Index 31.9 Discharge Plan Discharge Anticipated Discharge Date/Time: 05/19/21 08:41 Patient Disposition: Home, Self-Care Discharge Diagnosis: resolution of partial SBO Referrals: Carri Reynoso MD [Primary Care Provider] - 1 Week Discharge Medications: Continued celecoxib 200 mg Capsule 200 mg PO DAILY RF: 0 atorvastatin 10 mg Tablet 10 mg PO BEDTIME RF: 0 valacyclovir 1 gram Tablet 1,000 mg PO DAILY RF: 0 propranolol 60 mg Capsule,Extended Release 24 Hr 60 mg PO DAILY RF: 0 sennosides-docusate sodium [Senna Plus] 8.6-50 mg Tablet 2 tab-cap PO BEDTIME RF: 0 Linzess 290 mcg Capsule 290 mcg PO DAILY RF: 0 baclofen 10 mg Tablet 10 mg PO DAILY PRN (Reason: Muscle Spasm) RF: 0 Zyrtec 10 mg capsule 10 mg PO DAILY RF: 0 acetazolamide 500 mg capsule, extended release 500 mg PO BID RF: 0 prazosin 1 mg capsule 1 mg PO BEDTIME RF: 0 trazodone 100 mg tablet 100 mg PO BEDTIME RF: 0 topiramate [Topamax] 100 mg tablet 100 mg PO BEDTIME RF: 0 nortriptyline 25 mg capsule 25 mg PO BEDTIME RF: 0 zolpidem [Ambien] 10 mg tablet 10 mg PO BEDTIME RF: 0 fluoxetine [Prozac] 40 mg capsule 40 mg PO DAILY RF: 0 Latuda 120 mg tablet 120 mg PO DAILY RF: 0 calcium citrate 1,000 mg tablet 1,000 mg PO DAILY RF: 0 Discharge Orders: Discharge Order (Routine); Ordered 05/19/21 Ordered By: Maite Khan Diet: other Activity on Discharge: As tolerated Stand Alone Forms: Patient Portal Discharge page Care Plan Goals: healthy meal plan Health Concerns: weight loss Plan of Treatment: Liquid protien diet of at least 80 grams per day x 1 week, then resume her bariatric diet. Assessment: stable
[2021-05-19] MEDS: Famotidine/PF 20 MG/2 ML VIAL IVPUSH (08:50)
[2021-05-19] MEDS: 0.9 % Sodium Chloride Flush 3 ML SYRINGE IVFLUSH (08:56)
--- NOTE | 2021-05-19 09:59 | MHC.CM.PN ---
Addendum entered by Keily Giron 05/19/21 10:13: PATIENT FEELS SHE IS CAPABLE OF MANAGING TRANSPORT VIA SHUTTLE SERVICE. RN AWARE CM WILL PROVIDE TRANSPORT VOUCHER Original Note: PLAN IS HOME WITH NO NEED FOR SERVICES. RN AWARE OF PLAN. PATIENT WILL NEED ASSIST WITH TRANSPORTATION HOME.
== END 2021-05-19 12:57 | disposition home or self-care (01) | DRG 254 ==
LOC: HO.ED 03:52 → HO.EDOVER 07:58 → HO.S3 05-17 11:56
PROVIDERS: Admitting Provider Physician Assistant; Emergency Provider Emergency Medicine; PCP Internal Medicine; Visit Provider Physician Assistant
DX: K42.0 Umbilical hernia with obstruction, without gangrene (principal); Z20.822 Contact with and (suspected) exposure to COVID-19; Z79.1 Long term (current) use of non-steroidal anti-inflammatories (NSAID); Z88.0 Allergy status to penicillin; Z88.6 Allergy status to analgesic agent; Z98.84 Bariatric surgery status; Z79.899 Other long term (current) drug therapy
CPT/HCPCS: 36415; 74177; 80048; 80076; 81003; 83605; 83690; 83735; 84484; 85025; 87635; 93005; 99285; J1170; J2270; J2405; J3411; Q9967

== ENCOUNTER → 2021-05-21 13:15 | Outpatient (BNVA) | payer MEDICAID, SELFPAY | PROVIDERS: PCP Internal Medicine; Referring Provider Physician Assistant; Visit Provider Physician Assistant | DX: R10.13 Epigastric pain (principal); Z98.84 Bariatric surgery status | CPT/HCPCS: 99212 ==

== ENCOUNTER 2021-05-29 14:25 | Day surgery (SDC) | payer MEDICAID, SELFPAY ==
--- NOTE | 2021-05-28 10:13 | P.CONAN_ITS ---
Documented by User: Johanna Dalton NP 05/28/21 10:15 [facility] Active Problems Active Problems: All Active Problems (Updated 05/16/21 @ 06:33 by Zoe Sage DO) Abdominal pain (Acute) Partial small bowel obstruction (Acute) Vitamin D deficiency (Acute) Excess skin of upper extremity (Acute) Obesity (BMI 30-39.9) (Acute) Body mass index (BMI) of 32.0-32.9 in adult (Acute) History of Zane-en-Y gastric bypass (Acute) Intestinal malabsorption following gastrectomy (Acute) Past Medical History Medical History Anemia Anxiety Arthritis Back pain Carpal tunnel syndrome Depression Excess skin of upper extremity H/O nephrolithotomy with removal of calculi History of lipoma Hypercholesterolemia Lipoma Lymphedema Migraines Sleep apnea with use of continuous positive airway pressure (CPAP) Type 2 diabetes mellitus Family History Family History Father No problems noted. Mother Arthritis Brother No problems noted. Brother No problems noted. Sister No problems noted. Sister No problems noted. Sister No problems noted. Sister No problems noted. Son No problems noted. Daughter No problems noted. Surgical History Surgical History H/O cervical discectomy History of back surgery History of Zane-en-Y gastric bypass Hx of section Hx of colonoscopy Hx of lumpectomy S/P carpal tunnel release S/P knee replacement Social History Social History Household Members: None Alcohol intake: never Patient Tobacco Use Status: Former Tobacco user Advance Directives: No Advance Directives Information Provided: Yes service: No Current occupational status: disabled Meds Allergies Allergy/AdvReac Type Severity Reaction Status Date / Time amoxicillin Allergy Mild yeast Verified 05/21/21 13:27 infection gabapentin AdvReac Mild Swelling Verified 05/21/21 13:27 Meloxicam Allergy Unknown swelling Uncoded 05/21/21 13:27 Home Medications Medication Instructions Recorded Confirmed Last Taken Type acetazolamide 500 mg 500 mg PO BID 05/27/20 05/16/21 Unknown History capsule,extended release calcium citrate 1,000 mg tablet 1,000 mg PO DAILY 05/27/20 05/16/21 Unknown History cetirizine 10 mg capsule (Zyrtec) 10 mg PO DAILY 05/27/20 05/16/21 Unknown H istory fluoxetine 40 mg capsule (Prozac) 40 mg PO DAILY 05/27/20 05/16/21 Unknown History lurasidone 120 mg tablet (Latuda) 120 mg PO DAILY 05/27/20 05/16/21 Unknown History nortriptyline 25 mg capsule 25 mg PO BEDTIME 05/27/20 05/16/21 Unknown History prazosin 1 mg capsule 1 mg PO BEDTIME 05/27/20 05/16/21 Unknown History topiramate 100 mg tablet (Topamax) 100 mg PO BEDTIME 05/27/20 05/16/21 Unknown History trazodone 100 mg tablet 100 mg PO BEDTIME 05/27/20 05/16/21 Unknown History zolpidem 10 mg tablet (Ambien) 10 mg PO BEDTIME 05/27/20 05/16/21 Unknown History atorvastatin 10 mg tablet 10 mg PO BEDTIME 05/16/21 05/16/21 Unknown History baclofen 10 mg tablet 10 mg PO DAILY PRN 05/16/21 05/16/21 Unknown History celecoxib 200 mg capsule 200 mg PO DAILY 05/16/21 05/16/21 Unknown History linaclotide 290 mcg capsule 290 mcg PO DAILY 05/16/21 05/16/21 Unknown History (Linzess) propranolol 60 mg capsule,24 60 mg PO DAILY 05/16/21 05/16/21 Unknown History hr,extended release sennosides 8.6 mg-docusate sodium 2 tab-cap PO BEDTIME 05/16/21 05/16/21 Unknown History 50 mg tablet (Senna Plus) valacyclovir 1 gram tablet 1,000 mg PO DAILY 05/16/21 05/16/21 Unknown History Exam Exam Date and Time: May 28, 2021 1013 Pertinent Lab Results Pertinent Lab Results: Laboratory Tests 05/17/21 05/18/21 04:07 05:36 WBC 7.6 Hgb 9.5 L Hct 31.2 L Plt Count 112 L Sodium 140 Potassium 4.0 Chloride 109 H Carbon Dioxide 25 BUN 6 L D Creatinine 0.67 Narrative Narrative: EKG 05/2021 Vent. Rate : 064 BPM ? ? Atrial Rate : 064 BPM ?? P-R Int : 122 ms? QRS Dur : 092 ms ? ? QT Int : 414 ms ? ? ? P-R-T Axes : 054 003 012 degrees ?? QTc Int : 427 ms ? Normal sinus rhythm Minimal voltage criteria for LVH, may be normal variant ( R in aVL ) Borderline ECG When compared with ECG of 28-MAR-2019 14:23, Vent. rate has decreased BY? 39 BPM Assessment and Plan Assessment Anesthesia Assessment: Chart Reviewed Documented by User: Conner Simmons MD 05/29/21 15:16 [facility] Past Medical History Medical History Anemia Anxiety Arthritis Back pain Carpal tunnel syndrome Depression Excess skin of upper extremity H/O nephrolithotomy with removal of calculi History of lipoma Hypercholesterolemia Lipoma Lymphedema Migraines Sleep apnea with use of continuous positive airway pressure (CPAP) Type 2 diabetes mellitus Family History Family History Father No problems noted. Mother Arthritis Brother No problems noted. Brother No problems noted. Sister No problems noted. Sister No problems noted. Sister No problems noted. Sister No problems noted. Son No problems noted. Daughter No problems noted. Family history of problems with anesthesia: No Surgical History Surgical History H/O cervical discectomy History of back surgery History of Zane-en-Y gastric bypass Hx of section Hx of colonoscopy Hx of lumpectomy S/P carpal tunnel release S/P knee replacement History of Problems with Anesthesia: No Social History Social History Household Members: None Alcohol intake: never Patient Tobacco Use Status: Former Tobacco user Advance Directives: No Advance Directives Information Provided: Yes service: No Current occupational status: disabled Meds Allergies Allergy/AdvReac Type Severity Reaction Status Date / Time amoxicillin Allergy Mild yeast Verified 05/21/21 13:27 infection gabapentin AdvReac Mild Swelling Verified 05/21/21 13:27 Meloxicam Allergy Unknown swelling Uncoded 05/21/21 13:27 Home Medications Medication Instructions Recorded Confirmed Last Taken Type acetazolamide 500 mg 500 mg PO BID 05/27/20 05/16/21 Unknown History capsule,extended release calcium citrate 1,000 mg tablet 1,000 mg PO DAILY 05/27/20 05/16/21 Unknown History cetirizine 10 mg capsule (Zyrtec) 10 mg PO DAILY 05/27/20 05/16/21 Unknown History fluoxetine 40 mg capsule (Prozac) 40 mg PO DAILY 05/27/20 05/16/21 Unknown History lurasidone 120 mg tablet (Latuda) 120 mg PO DAILY 05/27/20 05/16/21 Unknown History nortriptyline 25 mg capsule 25 mg PO BEDTIME 05/27/20 05/16/21 Unknown History prazosin 1 mg capsule 1 mg PO BEDTIME 05/27/20 05/16/21 Unknown History topiramate 100 mg tablet (Topamax) 100 mg PO BEDTIME 05/27/20 05/16/21 Unknown History trazodone 100 mg tablet 100 mg PO BEDTIME 05/27/20 05/16/21 Unknown History zolpidem 10 mg tablet (Ambien) 10 mg PO BEDTIME 05/27/20 05/16/21 Unknown History atorvastatin 10 mg tablet 10 mg PO BEDTIME 05/16/21 05/16/21 Unknown History baclofen 10 mg tablet 10 mg PO DAILY PRN 05/16/21 05/16/21 Unknown History celecoxib 200 mg capsule 200 mg PO DAILY 05/16/21 05/16/21 Unknown History linaclotide 290 mcg capsule 290 mcg PO DAILY 05/16/21 05/16/21 Unknown History (Linzess) propranolol 60 mg capsule,24 60 mg PO DAILY 05/16/21 05/16/21 Unknown History hr,extended release sennosides 8.6 mg-docusate sodium 2 tab-cap PO BEDTIME 05/16/21 05/16/21 Unknown History 50 mg tablet (Senna Plus) valacyclovir 1 gram tablet 1,000 mg PO DAILY 05/16/21 05/16/21 Unknown History Exam Airway Mallampati Class: II TM Dist: >3cm Neck ROM: Full Loose/Missing/Broken Teeth: Yes Heart: [id number] Lungs: cta b/l Assessment and Plan Assessment Anesthesia Assessment: Anesthesia Plan Discussed Final Anesthetic Review Family History of Problems with Anesthesia: No History of Problems with Anesthesia: No NPO: Yes ASA Class: III Final Preanesthetic Review: No Changes in Pt Med Stat, Meds/Allgs Chart Reviewed, Consent Obtained/Reviewed and Anes Risks/Benef Reviewed Patient Risk: Intermediate Procedure Risk: Low Assessment/Block/Sedation in SS: Assess/Block/Sedation-SS Anesthetic Plan Anesthetic Plan: MAC: and Agree w/ Assess. and Plan Disposition: Standard PACU
--- NOTE | 2021-05-29 10:13 | MHC.SHP ---
Pre-Procedural Eval Section A Date of Service: 05/29/21 The patient is an INPATIENT: No The History & Physical has been completed within 30 days and I have reviewed it.: Yes Section B Chief Complaint: epigastric pain Relevant Family History (Specify if Yes): No Relevant Social History: None Present Medications: None Medical History: No relevant PMH History of Previous Operations: Relevant previous surgery/procedure and date(s) (Laparoscopic gastric bypass) Allergies: Allergies Allergy/AdvReac Type Severity Reaction Status Date / Time amoxicillin Allergy Mild yeast Verified 05/21/21 13:27 infection gabapentin AdvReac Mild Swelling Verified 05/21/21 13:27 Meloxicam Allergy Unknown swelling Uncoded 05/21/21 13:27 Review of Systems Sugical H&P ROS: Negative: Constitution, Cardiovascular, Respiratory, Neurological, Psychiatric, Hem-Onc, Allergic/Immunologic, Genitourinary, Musculoskeletal, Integumentary, Endocrine and Eyes/Ears/Nose/Throat and Yes, Specify: Gastrointestinal (epigastric pain) Exam Surgical H&P Exam: Normal: HEENT, Normal: Heart, Normal: Lungs, Normal: Extremities, Normal: Skin and Normal: Neurological and Significant Findings: Abdomen (epigastric tenderness) Plan Diagnosis/Plan: Unchanged (Upper endoscopy to assess etiology of the epigastric pain. Rule out anastomotic ulcer. The possibility of bleeding and perforation were discussed and patient is in agreement with the plan.) I have reviewed the history and physical and performed a pertinent physical examination on my patient. No changes have occurred unless specified.
[2021-05-29 15:07] VITALS: BP 104/60; PULSE 77; RESP 16; TEMP 36.6; O2SAT 100; BMI 30.9
[2021-05-29] MEDS: Lactated Ringers 1,000 ML 100 ML IVCONT (15:09)
[2021-05-29 16:03] LABS: COVID-19 Test Negative (Negative)
--- NOTE | 2021-05-29 16:38 | PM.OP ---
Brief Operative Note Date of Service: 05/29/21 Pre-op diagnosis: Epigastric pain Post-op diagnosis: same Procedure: PROCEDURE DATE: ?05/29/2021 PREOPERATIVE DIAGNOSIS: GERD, s/p gastric bypass POSTOPERATIVE DIAGNOSIS: ?Same as above. Normal endoscopy PROCEDURE: Zfrzispo-[id number] with biopsy Surgeon: ?Ed Victor M.D.. Ph.D. Instrument Technician Apprentice: ?None ? Anesthesia: IV sedation Estimated blood loss: ?Minimal FINDINGS AND PROCEDURE: ? OPERATIVE INDICATIONS: ?The patient is a 55 year old female known to me who underwent a laparoscopic gastric bypass by Dr. Escamilla. The patient was recently admitted to the hospital for a partial small bowel obstructions which resolved on its own. Since then she has been complaining of persistent epigastric pain which has not resolved despite dietary changes that were made as well as treatment with Pantoprazole and Carafate. Based on this information I recommended an upper endoscopy to evaluate the patient's symptoms.? Risks and complications of the surgery were discussed with the patient in advance particularly the possibility of perforation or bleeding that may require surgical intervention. The patient understood the risks and was in agreement with the plan. ? PROCEDURE: After informed consent was obtained by the patient, the patient was ?transferred to the Operating Room and was placed in the supine position.? After successful induction of IV sedation, a mouth block was placed and the patient was placed in the left lateral decubitus position. An upper endoscopy was performed next, the oropharynx and esophagus appeared within the normal limits. There was no hiatal hernia.? The z-line was smooth.The small pouch was entered, appeared to be of normal size. There was no gastritis and the gastrojejunostomy was somewhat narrow but patent. There was a retained suture but was not causing any issue. A biopsy was obtained from the gastric pouch. No significant bleeding was noted from any of the biopsy sites. There was no anastomotic ulcer.? At that point the scope was advanced into the proximal small intestine (proximal Zane limb) up to 70cm from incisors which appeared to be normal as well. The Zane limb and the pouch were decompressed and the scope was withdrawn from the patient's mouth. The patient was awaken and was transferred in stable condition to the Recovery Room for further care. I was present and performed all steps of the procedure. There were no residents to assist with this case. Ed Victor M.D., Ph.D. Surgeon: Rui Victor MD Anesthesia: MAC Was an Instrument Technician Apprentice used for this Procedure?: No Estimated blood loss (mL): 0 IV fluids (mL): 400 Urine output (mL): 0 (No Mora to record) Pathology: other (Gastric pouch) Condition: stable Disposition: PACU
[2021-05-29 17:05] VITALS: BP 83/46; PULSE 81; RESP 14; TEMP 36.2; O2SAT 96
[2021-05-29 17:10] VITALS: BP 86/42; PULSE 72; RESP 16; O2SAT 100
[2021-05-29 17:15] VITALS: BP 98/56; O2SAT 99
[2021-05-29 17:30] VITALS: BP 98/62; PULSE 71; RESP 17; TEMP 36.2; O2SAT 100
[2021-05-29 17:44] VITALS: BP 119/64; PULSE 75; RESP 17; TEMP 36.3; O2SAT 98
== END 2021-05-29 17:58 ==
LOC: HO.SSS 14:26
PROVIDERS: PCP Internal Medicine; Visit Provider Surgery
PROC: 0DJ08ZZ Inspection of Upper Intestinal Tract, Via Natural or Artificial Opening Endoscopic (ICD-10-PCS; CPT 43235; principal; 2021-05-29 15:30)
DX: R10.13 Epigastric pain (principal); R10.12 Left upper quadrant pain; K21.9 Gastro-esophageal reflux disease without esophagitis; Z98.84 Bariatric surgery status; L98.7 Excessive and redundant skin and subcutaneous tissue; G47.33 Obstructive sleep apnea (adult) (pediatric); E11.9 Type 2 diabetes mellitus without complications; Z79.899 Other long term (current) drug therapy; Z99.89 Dependence on other enabling machines and devices; Z88.0 Allergy status to penicillin; Z88.8 Allergy status to other drugs, medicaments and biological substances; Z20.822 Contact with and (suspected) exposure to COVID-19; Z87.442 Personal history of urinary calculi; Z87.891 Personal history of nicotine dependence
CPT/HCPCS: 43239; 36415; 87635; 88305; 88342; J2250

== ENCOUNTER 2021-07-03 13:31 | Outpatient (REF) | payer MEDICAID, SELFPAY ==
--- NOTE | ~2021-07-03 | US_ITS ---
EXAMINATION: US VENOUS ULTRASOUND WITH DOPPLER LOWER EXTREMITY, BILATERAL CLINICAL INFORMATION: Swelling and pain COMPARISON: None TECHNIQUE: Ultrasound of the deep veins is performed from the hip to the calf with compression sonography and color and pulse Doppler assessment. Spectral analysis with color-flow imaging is performed. FINDINGS: RIGHT: There is normal venous compression and respiratory variation and augmented flow. The visualized common femoral vein, superficial femoral vein, profunda femoral vein, popliteal vein, and the trifurcation region shows no evidence of deep venous thrombosis. There is no significant popliteal fossa cyst. Right peroneal vein is not visualized. There is mild calf edema noted. LEFT: There is normal venous compression and respiratory variation and augmented flow. The visualized common femoral vein, superficial femoral vein, profunda femoral vein, popliteal vein, and the trifurcation region shows no evidence of deep venous thrombosis. There is no significant popliteal fossa cyst. There is mild left calf edema. There are bilateral groin lymph nodes with the right lymph node measuring 3.1 x 0.8 x 1.3 cm and the left groin lymph node measuring 3.0 x 0.5 x 2 1.5 cm. If the patient's symptoms persist, followup ultrasound in 5 days 7 days might be of value to exclude proximal propagation from a non-visualized calf vein. US/US venous duplex LE BI IMPRESSION: No DVT demonstrated in the bilateral lower extremity. The right peroneal vein is not well visualized. There is mild bilateral calf edema. There are bilateral groin lymph nodes seen.
[2021-07-03 13:49] LABS: MANUAL DIFF FLAG NO
[2021-07-03 14:13] LABS: Basophils Percent Auto 0.3 % (0-2); Eosinophils Absolute Auto 0.1 X10*3/uL (0.0-0.4); Eosinophils Percent Auto 0.9 % (0-4); Hematocrit 31.4 % (37.0-47.0); Hemoglobin 10.2 g/dl (12.0-16.0); Imm Gran Abs Auto 0.02 X10*3/uL (0.00-0.03); Imm Gran Pct Auto 0.3 % (0.0-0.4); Lymphocytes Absolute Auto 2.2 X10*3/uL (1.2-4.9); Lymphocytes Percent Auto 29.1 % (20-40); Mean Corpuscular HGB Conc 32.5 g/dl (31.0-35.0); Mean Corpuscular Volume 83.1 fL (80.0-98.0); Mean Platelet Volume 10.5 fL (9.4-12.3); Monocytes Absolute Auto 0.4 X10*3/uL (0.1-1.2); Monocytes Percent Auto 4.7 % (2-11); Neutrophils Absolute Auto 4.9 x10*3/uL (2.0-8.3); Neutrophils Percent Auto 64.7 % (45-73); Platelet Count 177 X10*3/uL (160-400); Red Blood Count 3.78 X10*6/uL (4.20-5.50); Red Cell Distribution Width 18.3 % (11.0-16.0); White Blood Count 7.6 X10*3/uL (4.8-10.8)
[2021-07-03 14:46] LABS: Alanine Aminotransferase 31 U/L (0-31); Albumin Level 2.2 g/dL (3.5-5.0); Alkaline Phosphatase 123 U/L (39-117); Aspartate Amino Transferase 41 U/L (5-31); Bilirubin Total 0.5 mg/dL (0.0-1.0); Blood Urea Nitrogen 14 mg/dL (9-16); Calcium 7.5 mg/dL (8.4-10.2); Cholesterol 89 mg/dL; Estimated Glomerular Filt Rate 60; Glucose Random 75 mg/dL (60-115); HDL Cholesterol 48 mg/dL; LDL Cholesterol Calculated 31 mg/dl; Total Protein 5.1 g/dL (6.5-8.0); Triglycerides 54 mg/dL
[2021-07-03 14:57] LABS: Anion Gap 11 (12-20); Carbon Dioxide 26 mmol/L (22-29); Chloride 111 mmol/L (96-108); Potassium 2.5 mmol/L (3.3-5.1); Sodium 145 mmol/L (135-145)
[2021-07-03 14:59] LABS: TSH reflex Free T4 1.17 uIU/mL (0.32-4.0)
== END 2021-07-03 13:32 | disposition home or self-care (01) ==
LOC: HO.US 13:31
PROVIDERS: Absent Provider Obstetrics & Gynecology; PCP Internal Medicine; Visit Provider Internal Medicine
DX: R90.0 Intracranial space-occupying lesion found on diagnostic imaging of central nervous system (principal); E88.09 Other disorders of plasma-protein metabolism, not elsewhere classified; R00.1 Bradycardia, unspecified; R60.0 Localized edema; R74.01 Elevation of levels of liver transaminase levels; Z98.84 Bariatric surgery status
CPT/HCPCS: 36415; 80053; 80061; 84443; 85025; 93970

== ENCOUNTER 2021-07-03 15:25 | Inpatient (IN) | payer MEDICAID, SELFPAY ==
--- NOTE | ~2021-07-03 | US_ITS ---
EXAMINATION: US ABDOMEN LIMITED CLINICAL INFORMATION: Low albumin. Evaluate liver. COMPARISON: Previous CT of the abdomen and pelvis most recent May TECHNIQUE: Real-time imaging of the right upper quadrant abdominal viscera. FINDINGS: PANCREAS: Not well visualized due to bowel gas. LIVER: Normal. The liver is normal in size. The liver contour is normal. Parenchymal echogenicity is normal. No focal hepatic lesion. There is no intrahepatic biliary duct dilatation seen. GALLBLADDER: Surgically removed. COMMON BILE DUCT: Normal in caliber measuring 0.6 cm in diameter. RIGHT KIDNEY: There is trace perinephric fluid. No hydronephrosis. No renal calculi or focal parenchymal lesions. The kidney measures 10.3 cm in maximum dimension. FREE FLUID: There is question of a small fluid collection adjacent to the left lobe of the liver versus a fluid-filled loop of bowel. This area measures 2.7 x 2.6 x 2.4 cm. US/US abdomen limited IMPRESSION: Question small fluid collection versus fluid-filled loop of bowel adjacent to the left lobe of liver. This measures 2.7 x 2.6 x 2.4 cm. The liver is otherwise unremarkable. The pancreas is not well visualized due to bowel gas.
[2021-07-03 15:46] VITALS: BP 141/76; PULSE 64; RESP 16; TEMP 36.4; O2SAT 99; BMI 29.9
--- NOTE | 2021-07-03 15:49 | ECG_ITS ---
Test Reason : HYPERKALEMIA Blood Pressure : / mmHG Vent. Rate : 063 BPM Atrial Rate : 000 BPM P-R Int : 000 ms QRS Dur : 092 ms QT Int : 432 ms P-R-T Axes : 000 -03 034 degrees QTc Int : 442 ms Normal sinus rhythm Minimal voltage criteria for LVH, may be normal variant ( R in aVL ) Nonspecific ST and T wave abnormality Abnormal ECG When compared with ECG of 16-MAY-2021 03:45, T wave inversion now evident in Lateral leads Referred By: Rhonda Perry Electronically Signed By:Russ Hernández
--- NOTE | 2021-07-03 15:50 | ED.RECABL ---
HPI - Recheck/Abnormal Lab/Rx General Chief Complaint: General Medical Stated Complaint: Abnormal labs Time Seen by Provider: 07/03/21 15:43 Source: patient Mode of arrival: ambulatory Limitations: no limitations History of Present Illness HPI narrative: 56 y/o female with history of intestinal malabsorption following gastrectomy, hx Zane-en-Y 04/05/2019 complicated by partial small bowel obstruction who presents to the ER for evaluation of low potassium. Her PCP Dr. Reynoso saw her in the office yesterday for LE swelling x1 week and started on Diamox 500 mg BID. He called her today with a low potassium of 2.5. She also had LE dopplers done today that were negative for DVT. She reports taking the Diamox as prescribed but has not seen much of an increase in her UOP. She reports increased fatigue, generalized weakness along with the leg swelling for the last week. No chest pain or SOB. She tried elevating her legs with no improvement. MD complaint: abnormal lab Onset/Timin Initial visit (ago): week(s) Returns today for: called because of abnormal lab/test Symptoms since prior visit: worsening swelling Context: called for abnormal lab result Associated symptoms: malaise Related Data Home Medications Medication Instructions Recorded Confirmed calcium citrate 1,000 mg tablet 1,000 mg PO DAILY 05/27/20 05/16/21 cetirizine 10 mg capsule (Zyrtec) 10 mg PO DAILY 05/27/20 05/16/21 fluoxetine 40 mg capsule (Prozac) 40 mg PO DAILY 05/27/20 05/16/21 lurasidone 120 mg tablet (Latuda) 120 mg PO DAILY 05/27/20 05/16/21 prazosin 1 mg capsule 1 mg PO BEDTIME 05/27/20 05/16/21 topiramate 100 mg tablet (Topamax) 100 mg PO BEDTIME 05/27/20 05/16/21 trazodone 100 mg tablet 100 mg PO BEDTIME 05/27/20 05/16/21 zolpidem 10 mg tablet (Ambien) 10 mg PO BEDTIME 05/27/20 05/16/21 atorvastatin 10 mg tablet 10 mg PO BEDTIME 05/16/21 05/16/21 celecoxib 200 mg capsule 200 mg PO DAILY 05/16/21 05/16/21 linaclotide 290 mcg capsule 290 mcg PO DAILY 05/16/21 05/16/21 (Linzess) sennosides 8.6 mg-docusate sodium 2 tab-cap PO BEDTIME 05/16/21 05/16/21 50 mg tablet (Senna Plus) valacyclovir 1 gram tablet 1,000 mg PO DAILY 05/16/21 05/16/21 magnesium oxide 400 mg PO DAILY 06/17/21 Previous Rx's Medication Instructions Recorded pantoprazole 40 mg tablet,delayed 40 mg PO DAILY #30 tab 05/21/21 release sucralfate 100 mg/mL oral 10 ml PO BID #1000 ml 05/21/21 suspension (Carafate) acetazolamide 500 mg 500 mg PO BID 30 Days #60 cap 06/17/21 capsule,extended release baclofen 10 mg tablet 10 mg PO DAILY PRN 30 Days #30 tab 06/17/21 nortriptyline 25 mg capsule 25 mg PO BEDTIME 30 Days #30 cap 06/17/21 propranolol 60 mg capsule,24 60 mg PO DAILY 30 Days #30 cap 06/17/21 hr,extended release topiramate 100 mg tablet 100 mg PO BEDTIME #30 tab 06/17/21 Allergies Allergy/AdvReac Type Severity Reaction Status Date / Time amoxicillin Allergy Mild yeast Verified 05/21/21 13:27 infection gabapentin AdvReac Mild Swelling Verified 05/21/21 13:27 Meloxicam Allergy Unknown swelling Uncoded 05/21/21 13:27 Review of Systems Review of Systems: Constitutional: No Fever, No Chills ENT/Mouth: No sore throat, No Rhinorrhea, No Swallowing Difficulty Cardiovascular: No Chest Pain, No SOB, No Orthopnea, + Edema Respiratory: No Cough, No Sputum, No Wheezing, No dyspnea Gastrointestinal: No Nausea, No Vomiting, No Diarrhea, No abdominal Pain Genitourinary: No Dysuria, No Urinary Frequency, No Hematuria Musculoskeletal: No joint pain, No Myalgias Skin: No Skin Lesions, No rash Neuro: + Weakness, No Numbness, No Dizziness, No Headache Psych: No Anxiety/Panic, No Depression Heme/Lymph: No Bruising, No Lymphadenopathy Endocrine: No Polyuria, No Polydipsia PMFSH Past Medical History Medical History Anemia Anxiety Arthritis Back pain Carpal tunnel syndrome Depression Excess skin of upper extremity H/O nephrolithotomy with removal of calculi History of lipoma Hypercholesterolemia Lipoma Lymphedema Migraines Sleep apnea with use of continuous positive airway pressure (CPAP) Type 2 diabetes mellitus Surgical History H/O cervical discectomy History of back surgery History of Zane-en-Y gastric bypass Hx of section Hx of colonoscopy Hx of lumpectomy S/P carpal tunnel release S/P knee replacement Family History Family History Father No problems noted. Mother Arthritis Brother No problems noted. Brother No problems noted. Sister No problems noted. Sister No problems noted. Sister No problems noted. Sister No problems noted. Son No problems noted. Daughter No problems noted. Social History Social History Household Members: None Alcohol intake: never Patient Tobacco Use Status: Former Tobacco user Use of substances other than those prescribed or required for medical reasons: No Advance Directives: No Advance Directives Information Provided: No service: No Current occupational status: disabled Physical Exam Vital Signs: Vital Signs: Last Vital Signs Temp 97.6 F 07/03/21 15:46 Pulse 64 07/03/21 15:46 Resp 16 07/03/21 15:46 BP 141/76 H 07/03/21 15:46 Pulse Ox 99 07/03/21 15:46 BMI result Body Mass Index 29.9 Appearance: Alert. Oriented X3. No acute distress. Eyes: Pupils equal, round and reactive to light. ENT: Pharynx normal. Neck: Normal inspection. Neck supple. CVS: Normal heart rate and rhythm. Pulses normal. Respiratory: No respiratory distress. Breath sounds normal. Abdomen: Soft and nontender. +BS x4 Skin: Skin warm and dry. Normal skin color. Normal skin turgor. No rashes. Extremities: 2+lower extremity edema, pitting and tender anteriorly. Neuro: Oriented X 3. No motor deficit. No sensory deficit. Course Course Course Narrative: 56 y/o female presenting with lower leg swelling x1 week, found to be hypokalemic to 2.5 after being started on acetazoemide yesterday. Last K+ was 4.0 back in May. Not on any other diuretics. will replete with 60 of oral potassium and 20 of IV potassium now and repeat. May require admission as her total body potassium deficit may be low enough to require 100's of mEQ replacement. Reevaluation(s) Reevaluation #1: potassium 2.5 prior to repletion. will give an additional 40 meQ PO while the 20 meq continue to infuse. Will plan to repeat K at 7pm. Signed out to Judit JONES who will assume care. MDM - Recheck/Abnormal Lab/Rx Medical Records Attestation: I reviewed the patient's medical records. Lab Data Attestation: I reviewed the patient's lab results. Result diagrams: 07/03/21 16:45 07/03/21 16:45 Labs: Lab Results 07/03/21 07/03/21 07/03/21 Range/Units 16:45 16:45 16:45 WBC 8.1 (4.8-10.8) X10*3/uL RBC 3.55 L (4.20-5.50) X10*6/uL Hgb 9.7 L (12.0-16.0) g/dl Hct 29.5 L (37.0-47.0) % MCV 83.1 (80.0-98.0) fL MCH 27.3 (27.0-33.0) pg MCHC 32.9 (31.0-35.0) g/dl RDW 18.0 H (11.0-16.0) % Plt Count 161 (160-400) X10*3/uL MPV 9.9 (9.4-12.3) fL Immature Gran % (Auto) 0.2 (0.0-0.4) % Neut % (Auto) 52.0 (45-73) % Lymph % (Auto) 40.3 H (20-40) % [place] % (Auto) 6.2 (2-11) % Eos % (Auto) 1.1 (0-4) % Baso % (Auto) 0.2 (0-2) % Lymph # (Auto) 3.3 (1.2-4.9) X10*3/uL [place] # (Auto) 0.5 (0.1-1.2) X10*3/uL Eos # (Auto) 0.1 (0.0-0.4) X10*3/uL Baso # (Auto) 0.0 (0.0-0.2) X10*3/uL Abs Immat Gran (auto) 0.02 (0.00-0.03) X10*3/uL Absolute Neuts (auto) 4.2 (2.0-8.3) x10*3/uL Absolute Nucleated RBC 0.000 (0.0-0.012) X10*3/uL Nucleated RBC % (auto) 0.0 (0.0-0.2) /100WBC Sodium 146 H (135-145) mmol/L Potassium 2.5 L* (3.3-5.1) mmol/L Chloride 112 H (96-108) mmol/L Carbon Dioxide 27 (22-29) mmol/L Anion Gap 10 L (12-20) BUN 14 (9-16) mg/dL Creatinine 0.93 (0.5-1.4) mg/dL Estim Creat Clear Calc 75.7 Estimated GFR > 60 Random Glucose 71 (60-115) mg/dL Calcium 7.4 L (8.4-10.2) mg/dL Magnesium 1.7 (1.6-2.6) mg/dL Total Bilirubin 0.6 (0.0-1.0) mg/dL Direct Bilirubin 0.3 (0.0-0.5) mg/dL AST 34 H (5-31) U/L ALT 26 (0-31) U/L Alkaline Phosphatase 118 H (39-117) U/L B-Natriuretic Peptide (<100) pg/mL Total Protein 4.6 L (6.5-8.0) g/dL Albumin 2.0 L (3.5-5.0) g/dL COVID-19 ([facility]) Invalid (Negative) COVID-19 Clin Com See Note 07/03/21 Range/Units 16:45 WBC (4.8-10.8) X10*3/uL RBC (4.20-5.50) X10*6/uL Hgb (12.0-16.0) g/dl Hct (37.0-47.0) % MCV (80.0-98.0) fL MCH (27.0-33.0) pg MCHC (31.0-35.0) g/dl RDW (11.0-16.0) % Plt Count (160-400) X10*3/uL MPV (9.4-12.3) fL Immature Gran % (Auto) (0.0-0.4) % Neut % (Auto) (45-73) % Lymph % (Auto) (20-40) % [place] % (Auto) (2-11) % Eos % (Auto) (0-4) % Baso % (Auto) (0-2) % Lymph # (Auto) (1.2-4.9) X10*3/uL [place] # (Auto) (0.1-1.2) X10*3/uL Eos # (Auto) (0.0-0.4) X10*3/uL Baso # (Auto) (0.0-0.2) X10*3/uL Abs Immat Gran (auto) (0.00-0.03) X10*3/uL Absolute Neuts (auto) (2.0-8.3) x10*3/uL Absolute Nucleated RBC (0.0-0.012) X10*3/uL Nucleated RBC % (auto) (0.0-0.2) /100WBC Sodium (135-145) mmol/L Potassium (3.3-5.1) mmol/L Chloride (96-108) mmol/L Carbon Dioxide (22-29) mmol/L Anion Gap (12-20) BUN (9-16) mg/dL Creatinine (0.5-1.4) mg/dL Estim Creat Clear Calc Estimated GFR Random Glucose (60-115) mg/dL Calcium (8.4-10.2) mg/dL Magnesium (1.6-2.6) mg/dL Total Bilirubin (0.0-1.0) mg/dL Direct Bilirubin (0.0-0.5) mg/dL AST (5-31) U/L ALT (0-31) U/L Alkaline Phosphatase (39-117) U/L B-Natriuretic Peptide 85 (<100) pg/mL Total Protein (6.5-8.0) g/dL Albumin (3.5-5.0) g/dL COVID-19 (KELLY) (Negative) COVID-19 Clin Com ECG Data Attestation: I personally reviewed and interpreted this ECG as follows: ECG interpretation date: 07/03/21 ECG interpretation time: 17:22 Prior ECG tracings: available for review Interpretation: normal sinus rhythm, HR 63 bpm, artifact present, normal QRS, normal QTc Critical Care Time Critical Care Time Critical Care Time: Yes Total Critical Care Time: 36 Attestation: I have personally provided critical care time exclusive of time spent on separately billable procedures. Time includes review of lab data, radiology results, discussion with consultants, frequent re-evaluation and monitoring for potential decompensation. Intervention performed as documented. Discharge Plan Discharge Clinical Impression: Hypokalemia, Hypoalbuminemia Patient Disposition: Still a Patient Prescriptions: No Action magnesium oxide 400 mg magnesium capsule 400 mg PO DAILY RF: 0 nortriptyline 25 mg capsule 25 mg PO BEDTIME 30 Days Qty: 30 RF: 6 propranolol 60 mg capsule,extended release 24 hr 60 mg PO DAILY 30 Days Qty: 30 RF: 6 baclofen 10 mg tablet 10 mg PO DAILY PRN (Reason: Muscle Spasm) 30 Days Qty: 30 RF: 6 topiramate 100 mg tablet 100 mg PO BEDTIME Qty: 30 RF: 6 acetazolamide 500 mg capsule, extended release 500 mg PO BID 30 Days Qty: 60 RF: 3 celecoxib 200 mg Capsule 200 mg PO DAILY RF: 0 atorvastatin 10 mg Tablet 10 mg PO BEDTIME RF: 0 valacyclovir 1 gram Tablet 1,000 mg PO DAILY RF: 0 sennosides-docusate sodium [Senna Plus] 8.6-50 mg Tablet 2 tab-cap PO BEDTIME RF: 0 Linzess 290 mcg Capsule 290 mcg PO DAILY RF: 0 Zyrtec 10 mg capsule 10 mg PO DAILY RF: 0 prazosin 1 mg capsule 1 mg PO BEDTIME RF: 0 trazodone 100 mg tablet 100 mg PO BEDTIME RF: 0 topiramate [Topamax] 100 mg tablet 100 mg PO BEDTIME RF: 0 zolpidem [Ambien] 10 mg tablet 10 mg PO BEDTIME RF: 0 fluoxetine [Prozac] 40 mg capsule 40 mg PO DAILY RF: 0 Latuda 120 mg tablet 120 mg PO DAILY RF: 0 calcium citrate 1,000 mg tablet 1,000 mg PO DAILY RF: 0 pantoprazole 40 mg tablet,delayed release (DR/EC) 40 mg PO DAILY Qty: 30 RF: 3 sucralfate [Carafate] 100 mg/mL suspension 10 ml PO BID Qty: 1000 RF: 1
[2021-07-03 16:54] LABS: MANUAL DIFF FLAG NO
[2021-07-03] MEDS: Potassium Chloride/H20 10 MEQ/100 ML PIGGYBACK 100 MEQ IV ×2 (16:55→18:13)
[2021-07-03] MEDS: Potassium Chloride ER 20 MEQ TAB.ER.PRT 60 MEQ PO (16:56)
[2021-07-03 16:58] LABS: Basophils Percent Auto 0.2 % (0-2); Eosinophils Absolute Auto 0.1 X10*3/uL (0.0-0.4); Eosinophils Percent Auto 1.1 % (0-4); Hematocrit 29.5 % (37.0-47.0); Hemoglobin 9.7 g/dl (12.0-16.0); Imm Gran Abs Auto 0.02 X10*3/uL (0.00-0.03); Imm Gran Pct Auto 0.2 % (0.0-0.4); Lymphocytes Absolute Auto 3.3 X10*3/uL (1.2-4.9); Lymphocytes Percent Auto 40.3 % (20-40); Mean Corpuscular HGB Conc 32.9 g/dl (31.0-35.0); Mean Corpuscular Hemoglobin 27.3 pg (27.0-33.0); Mean Corpuscular Volume 83.1 fL (80.0-98.0); Mean Platelet Volume 9.9 fL (9.4-12.3); Monocytes Absolute Auto 0.5 X10*3/uL (0.1-1.2); Monocytes Percent Auto 6.2 % (2-11); Neutrophils Absolute Auto 4.2 x10*3/uL (2.0-8.3); Platelet Count 161 X10*3/uL (160-400); Red Blood Count 3.55 X10*6/uL (4.20-5.50); White Blood Count 8.1 X10*3/uL (4.8-10.8)
[2021-07-03 17:15] LABS: B Type Natriuretic Peptide 85 pg/mL (<100)
[2021-07-03 17:22] LABS: Alanine Aminotransferase 26 U/L (0-31); Alkaline Phosphatase 118 U/L (39-117); Aspartate Amino Transferase 34 U/L (5-31); Bilirubin Direct 0.3 mg/dL (0.0-0.5); Bilirubin Total 0.6 mg/dL (0.0-1.0); Blood Urea Nitrogen 14 mg/dL (9-16); Creatinine Clr Calc Pharmacy 75.7; Estimated Glomerular Filt Rate > 60; Glucose Random 71 mg/dL (60-115); Magnesium 1.7 mg/dL (1.6-2.6); Total Protein 4.6 g/dL (6.5-8.0)
[2021-07-03 17:35] LABS: COVID-19 Test Invalid (Negative)
[2021-07-03 17:37] LABS: Anion Gap 10 (12-20); Calcium 7.4 mg/dL (8.4-10.2); Carbon Dioxide 27 mmol/L (22-29); Chloride 112 mmol/L (96-108); Potassium 2.5 mmol/L (3.3-5.1); Sodium 146 mmol/L (135-145)
[2021-07-03 18:11] VITALS: BP 118/60; PULSE 77; RESP 17; TEMP 36.8; O2SAT 100
[2021-07-03] MEDS: Potassium Chloride ER 20 MEQ TAB.ER.PRT 40 MEQ PO (18:13)
[2021-07-03 19:13] LABS: COVID-19 Test Negative (Negative); IDNOW Serial# 9DD0AD1C
[2021-07-03 19:38] LABS: Potassium 2.6 mmol/L (3.3-5.1)
--- NOTE | 2021-07-03 20:30 | ECG_ITS ---
Test Reason : ABNORMAL LABS Blood Pressure : / mmHG Vent. Rate : 059 BPM Atrial Rate : 059 BPM P-R Int : 116 ms QRS Dur : 082 ms QT Int : 418 ms P-R-T Axes : 020 -05 001 degrees QTc Int : 413 ms Sinus bradycardia Minimal voltage criteria for LVH, may be normal variant ( R in aVL ) Nonspecific T wave abnormality Abnormal ECG When compared with ECG of 03-JUL-2021 16:28, No significant changes seen Referred By: Rony Frazier Electronically Signed By:Russ Hernández
--- NOTE | 2021-07-03 20:33 | P.HPHOSP_ITS ---
History of Present Illness Date of Service: 07/03/21 Chief Complaint: generalized weakness 56-year-old female with a past medical history of gastrectomy, distal malabsorption, history of proximal eye surgery, history of small-bowel obstruction, hyperlipidemia, anxiety, depression, diabetes, migraine headaches, obstructive sleep apnea on CPAP, renal stones, back pain, arthritis, GERD presented to the hospital with a chief complaint of generalized weakness. Patient reports that over the past 1 week she has been having generalized weakness, decreased energy, noted to have swelling in the legs; has seen the PCP yesterday who suggested a history stone might. Patient denies any falls or trauma. Denies any chest pain or palpitations. Denies any lightheadedness dizziness. Denies any fever chills cough. Patient denies any GI symptoms. Reports he has been passing gas. Denies any diarrhea. Review of all other systems is negative except mentioned above Patient reports that she has been eating well. ER course: Per ER team patient noted 2+ pitting edema; patient had outpatient labs done i ch showed potassium of 2.5. And her PCP asked her to go to the ER for further evaluation. In the ER patient noted to have repeat potassium 2.5. Given 100 meq of potassium p.o. and 20 mEq IV ; EKG showed no acute changes;; patient Solu-Medrol was also noted to be 2.0. Admitted for further management. [facility] Medical History Anemia Anxiety Arthritis Back pain Carpal tunnel syndrome Depression Excess skin of upper extremity H/O nephrolithotomy with removal of calculi History of lipoma Hypercholesterolemia Lipoma Lymphedema Migraines Sleep apnea with use of continuous positive airway pressure (CPAP) Type 2 diabetes mellitus Family History Father No problems noted. Mother Arthritis Brother No problems noted. Brother No problems noted. Sister No problems noted. Sister No problems noted. Sister No problems noted. Sister No problems noted. Son No problems noted. Daughter No problems noted. Pertinent family history: as above Surgical History H/O cervical discectomy History of back surgery History of Zane-en-Y gastric bypass Hx of section Hx of colonoscopy Hx of lumpectomy S/P carpal tunnel release S/P knee replacement Social History Household Members: None Alcohol intake: never Patient Tobacco Use Status: Former Tobacco user service: No Current occupational status: disabled Meds Allergies Allergy/AdvReac Type Severity Reaction Status Date / Time amoxicillin Allergy Mild yeast Verified 05/21/21 13:27 infection gabapentin AdvReac Mild Swelling Verified 05/21/21 13:27 Meloxicam Allergy Unknown swelling Uncoded 05/21/21 13:27 Home Medications Medication Instructions Recorded Confirmed Last Taken Type calcium citrate 1,000 mg PO 05/27/20 07/04/21 Unknown History 1,000 mg tablet DAILY cetirizine 10 mg 10 mg PO DAILY 05/27/20 07/04/21 Unknown History capsule (Zyrtec) fluoxetine 40 mg 40 mg PO DAILY 05/27/20 07/04/21 Unknown History capsule (Prozac) lurasidone 120 mg 120 mg PO DAILY 05/27/20 07/04/21 Unknown History tablet (Latuda) prazosin 1 mg 1 mg PO BEDTIME 05/27/20 07/04/21 Unknown History capsule trazodone 100 mg 100 mg PO 05/27/20 07/04/21 Unknown History tablet BEDTIME atorvastatin 10 10 mg PO BEDTIME 05/16/21 07/04/21 Unknown History mg tablet celecoxib 200 mg 200 mg PO DAILY 05/16/21 07/04/21 Unknown History capsule linaclotide 290 290 mcg PO DAILY 05/16/21 07/04/21 Unknown History mcg capsule (Linzess) sennosides 8.6 2 tab-cap PO 05/16/21 07/04/21 Unknown History mg-docusate BEDTIME sodium 50 mg tablet (Senna Plus) valacyclovir 1 1,000 mg PO 05/16/21 07/04/21 Unknown History gram tablet DAILY magnesium oxide 400 mg PO DAILY 06/17/21 07/04/21 Unknown History diclofenac sodium 150 mg PO 07/04/21 07/04/21 Unknown History 75 mg BEDTIME tablet,delayed release furosemide 20 mg 20 mg PO DAILY 07/04/21 07/04/21 07/03/21 History tablet nortriptyline 25 75 mg PO BEDTIME 07/04/21 07/04/21 Unknown History mg capsule potassium 10 meq PO DAILY 07/04/21 07/04/21 07/03/21 History chloride 10 mEq tablet,extended release propranolol 60 mg 60 mg PO BEDTIME 07/04/21 07/04/21 Unknown History capsule,24 hr,extended release sucralfate 100 10 ml PO DAILY 07/04/21 07/04/21 Unknown History mg/mL oral PRN suspension (Carafate) zolpidem 10 mg 10 mg PO BEDTIME 07/04/21 07/04/21 Unknown History tablet Physical Exam Verdana 4l Vital Signs and Narrative: Verdana 4d Verdana 4d Vital Signs: Verdana 4d Verdana 4Bd Last Vital Signs Verdana 4d [employer] New 4d [employer] New 4d Temp 98.2 F 07/03/21 18:11 [employer] New 4d Pulse 77 07/03/21 18:11 [employer] New 4d Resp 17 07/03/21 18:11 BP 118/60 07/03/21 18:11 Pulse Ox 100 07/03/21 18:11 BMI result Body Mass Index 29.9 Gen: Appears be in no acute distress HEENT: NCAT, Moist mucosa. Pulmonary: Vesicular breath sounds, fair air entry CVS: Normal S1-S2 Abdomen: BS+, Soft, Nontender Extremities: Warm well perfused; 2+ pitting edema noted Neuro: Alert and awake. Results Labs CBC and Chem 7: 07/05/21 06:50 07/05/21 06:50 Labs: Laboratory Results - last 24 hr 07/03/21 07/03/21 07/03/21 16:45 16:45 16:45 MCV 83.1 MCH 27.3 MCHC 32.9 RDW 18.0 H Plt Count 161 MPV 9.9 Immature Gran % (Auto) 0.2 Neut % (Auto) 52.0 Lymph % (Auto) 40.3 H [place] % (Auto) 6.2 Eos % (Auto) 1.1 Baso % (Auto) 0.2 Lymph # (Auto) 3.3 [place] # (Auto) 0.5 Eos # (Auto) 0.1 Baso # (Auto) 0.0 Abs Immat Gran (auto) 0.02 Absolute Neuts (auto) 4.2 Absolute Nucleated RBC 0.000 Nucleated RBC % (auto) 0.0 Anion Gap 10 L Estim Creat Clear Calc 75.7 Estimated GFR > 60 Random Glucose 71 Calcium 7.4 L Magnesium 1.7 Total Bilirubin 0.6 Direct Bilirubin 0.3 AST 34 H ALT 26 Alkaline Phosphatase 118 H B-Natriuretic Peptide Total Protein 4.6 L Albumin 2.0 L COVID-19 (KELLY) Invalid COVID-19 Clin Com See Note 07/03/21 07/03/21 16:45 18:38 MCV MCH MCHC RDW Plt Count MPV Immature Gran % (Auto) Neut % (Auto) Lymph % (Auto) [place] % (Auto) Eos % (Auto) Baso % (Auto) Lymph # (Auto) [place] # (Auto) Eos # (Auto) Baso # (Auto) Abs Immat Gran (auto) Absolute Neuts (auto) Absolute Nucleated RBC Nucleated RBC % (auto) Anion Gap Estim Creat Clear Calc Estimated GFR Random Glucose Calcium Magnesium Total Bilirubin Direct Bilirubin AST ALT Alkaline Phosphatase B-Natriuretic Peptide 85 Total Protein Albumin COVID-19 (KELLY) Negative COVID-19 Clin Com See Note Assessment and Plan (1) Hypokalemia: Status: Resolved (2) Hypoalbuminemia: Status: Acute Plan 56-year-old female with a past medical history of gastrectomy, distal malabsorption, history of proximal eye surgery, history of small-bowel obstruction, hyperlipidemia, anxiety, depression, diabetes, migraine headaches, obstructive sleep apnea on CPAP, renal stones, back pain, arthritis, GERD presented to the hospital with a chief complaint of generalized weakness. Noted to have following conditions General Weakness: Multifactorial; pt has depression history. No obvious source of infection. Hypoalbuminemia: Patient placed on high-protein diet/ dietary supplements t.i.d.. Counseled on dietary modifications. Hypokalemia: Repleted. Repeat BMP. Monitor on telemetry. EKG sinus promise. History of anxiety / depression: Continue home medications. DVT prophylaxis: Subcu heparin Code status: Full code Quality Stroke Does the patient have a stroke diagnosis?: No VTE Prior VTE?: No VTE Risk Level:: Medical - low VTE Device Contraindication: N/A - Device Ordered VTE Drug Contraindication: Treatment Not Indicated
[2021-07-04] VITALS (9 sets, daily range): BP systolic 117–136; BP diastolic 60–71; PULSE 63–78; RESP 12–18; TEMP 36.3–36.8; O2SAT 97–100
[2021-07-04] MEDS: Heparin Sodium,Porcine 5,000 UNIT/ML VIAL 5000 UNIT SUBCUT ×3 (01:13→16:59)
--- NOTE | 2021-07-04 03:33 | PC.NURSE ---
pt is sleeping no sign distress.
--- NOTE | 2021-07-04 08:11 | PHA.MEDREC ---
med rec complete no issues Pharmacy Consult ? Medication Reconciliation Pharmacy has completed the medication reconciliation.
[2021-07-04] MEDS: FLUoxetine HCl 20 MG CAPSULE 40 MG PO (09:51)
[2021-07-04] MEDS: Lurasidone HCl 40 MG TABLET 120 MG PO (09:52)
[2021-07-04] MEDS: Sucralfate Oral Suspension 1 GM/10 ML ORAL.SUSP PO ×2 (09:52→21:57)
[2021-07-04] MEDS: Omeprazole 20 MG CAPSULE.DR PO (09:52)
--- NOTE | 2021-07-04 09:56 | PC.NURSE ---
Pt received from main ER: Pt AOX4 and states B/L LE pain. 2pitted edema notes to B/L LE. NSR noted and lungs clear. Pt abd soft and non-tender.
[2021-07-04 10:05] LABS: Alanine Aminotransferase 30 U/L (0-31); Alkaline Phosphatase 124 U/L (39-117); Anion Gap 9 (12-20); Aspartate Amino Transferase 38 U/L (5-31); Bilirubin Total 0.5 mg/dL (0.0-1.0); Blood Urea Nitrogen 11 mg/dL (9-16); Calcium 7.4 mg/dL (8.4-10.2); Carbon Dioxide 28 mmol/L (22-29); Chloride 111 mmol/L (96-108); Creatinine Clr Calc Pharmacy 89.1; Estimated Glomerular Filt Rate > 60; Glucose Random 67 mg/dL (60-115); Sodium 145 mmol/L (135-145); Total Protein 4.7 g/dL (6.5-8.0)
[2021-07-04] MEDS: Potassium Chloride Packet 20 MEQ PACKET 40 MEQ PO ×3 (13:08→21:32)
--- NOTE | 2021-07-04 13:31 | HO.PM.IMPN ---
Subjective Subjective Date of Service: 07/04/21 Interval History: pt seen and examined at bedside. no overnight events. reports pain in her legs bilaterally. denies any recent trauma and reports that she has been eating and drinking well. no recent inactivity. denies any abd pain, no nausea or vomiting. no diarrhea Review of Systems Review of Systems: Yes all other systems are reviewed and are negative Physical Exam Vital Signs: Vital Signs: Last Vital Signs Temp 97.3 F 07/04/21 04:56 Pulse 78 07/04/21 12:49 Resp 15 07/04/21 12:49 BP 127/65 07/04/21 12:49 Pulse Ox 98 07/04/21 12:49 BMI result Body Mass Index 29.9 Const: General: cooperative and no acute distress Orientation/consciousness: patient oriented x3 Resp: Effort & Inspection: normal respiratory effort Auscultation: clear to auscultation bilaterally Cardio: Rate: regular rate Rhythm: regular rhythm GI: Palpation (GI): Soft to palpation Auscultation: normal bowel sounds Neuro: General: patient oriented x3 Extrem: Other: no muscle stiffness, no erythema, warmth General: Yes normal to inspection and Yes no pedal edema Objective Data Active Medications Acetaminophen (Acetaminophen 325 Mg Tablet) 650 mg PO Q6H PRN PRN Reason: Pain, Mild (Pain Scale 1-3) Atorvastatin Calcium (Atorvastatin Calcium 10 Mg Tablet) 10 mg PO BEDTIME LILI Docusate Sodium (Docusate Sodium 100 Mg Capsule) 100 mg PO DAILY PRN PRN Reason: Constipation Fluoxetine HCl (Fluoxetine Hcl 20 Mg Capsule) 40 mg PO DAILY [facility] Last Admin: 07/04/21 09:51 Dose: 40 mg Documented by: KIMBERLI Heparin Sodium (Porcine) (Heparin Sodium,Porcine 5,000 Unit/Ml Vial) 5,000 unit SUBCUT Q8H [facility] Last Admin: 07/04/21 09:52 Dose: 5,000 unit Documented by: KIMBERLI Lurasidone HCl (Lurasidone Hcl 40 Mg Tablet) 120 mg PO DAILY [facility] Last Admin: 07/04/21 09:52 Dose: 120 mg Documented by: KIMBERLI Melatonin (Melatonin 3 Mg Tablet) 6 mg PO BEDTIME PRN PRN Reason: Insomnia Nortriptyline HCl (Nortriptyline Hcl 25 Mg Capsule) 25 mg PO BEDTIME LILI Omeprazole (Omeprazole 20 Mg Capsule.) 20 mg PO DAILY@0630 [facility] Last Admin: 07/04/21 09:52 Dose: 20 mg Documented by: KIMBERLI Potassium Chloride (Potassium Chloride Packet 20 Meq Packet) 40 meq PO Q4H [facility] Stop: 07/04/21 18:46 Last Admin: 07/04/21 13:08 Dose: 40 meq Documented by: KIMBERLI Prazosin HCl (Prazosin Hcl 1 Mg Capsule) 1 mg PO BEDTIME LILI; Protocol Propranolol HCl (Propranolol Hcl La 60 Mg Cap.Sa.24h) 60 mg PO BEDTIME LILI; Protocol Sodium Chloride (0.9 % Sodium Chloride Flush 3 Ml Syringe) 3 ml IVFLUSH QSHIFT [facility] Last Admin: 07/04/21 08:15 Dose: Not Given Documented by: KIMBERLI Non-Admin Reason: Med Not Available Sucralfate (Sucralfate Oral Suspension 1 Gm/10 Ml Oral.Susp) 1 gm PO BID [facility] Last Admin: 07/04/21 09:52 Dose: 1 gm Documented by: KIMBERLI Topiramate (Topiramate 100 Mg Tablet) 100 mg PO BEDTIME LILI Trazodone HCl (Trazodone Hcl 100 Mg Tablet) 100 mg PO BEDTIME LILI Valacyclovir HCl (Valacycyclovir Hcl 1,000 Mg Tablet) 1,000 mg PO DAILY [facility] Last Admin: 07/04/21 09:52 Dose: 1,000 mg Documented by: KIMBERLI Labs CBC & Chem 7: 07/03/21 16:45 07/04/21 09:40 Labs: Laboratory Results - last 24 hr 07/03/21 07/03/21 07/03/21 16:45 16:45 16:45 MCV 83.1 MCH 27.3 MCHC 32.9 RDW 18.0 H Plt Count 161 MPV 9.9 Immature Gran % (Auto) 0.2 Neut % (Auto) 52.0 Lymph % (Auto) 40.3 H [place] % (Auto) 6.2 Eos % (Auto) 1.1 Baso % (Auto) 0.2 Lymph # (Auto) 3.3 [place] # (Auto) 0.5 Eos # (Auto) 0.1 Baso # (Auto) 0.0 Abs Immat Gran (auto) 0.02 Absolute Neuts (auto) 4.2 Absolute Nucleated RBC 0.000 Nucleated RBC % (auto) 0.0 Anion Gap 10 L Estim Creat Clear Calc 75.7 Estimated GFR > 60 Random Glucose 71 Calcium 7.4 L Magnesium 1.7 Total Bilirubin 0.6 Direct Bilirubin 0.3 AST 34 H ALT 26 Alkaline Phosphatase 118 H B-Natriuretic Peptide Total Protein 4.6 L Albumin 2.0 L COVID-19 (KELLY) Invalid COVID-19 Clin Com See Note 07/03/21 07/03/21 07/04/21 16:45 18:38 09:40 MCV MCH MCHC RDW Plt Count MPV Immature Gran % (Auto) Neut % (Auto) Lymph % (Auto) [place] % (Auto) Eos % (Auto) Baso % (Auto) Lymph # (Auto) [place] # (Auto) Eos # (Auto) Baso # (Auto) Abs Immat Gran (auto) Absolute Neuts (auto) Absolute Nucleated RBC Nucleated RBC % (auto) Anion Gap 9 L Estim Creat Clear Calc 89.1 Estimated GFR > 60 Random Glucose 67 Calcium 7.4 L Magnesium Total Bilirubin 0.5 Direct Bilirubin AST 38 H ALT 30 Alkaline Phosphatase 124 H B-Natriuretic Peptide 85 Total Protein 4.7 L Albumin 2.0 L COVID-19 (KELLY) Negative COVID-19 Clin Com See Note Assessment and Plan (1) Hypokalemia: Status: Acute (2) Hypoalbuminemia: Status: Acute Assessment and Plan: 56-year-old female with a past medical history of gastrectomy, distal malabsorption, history of proximal eye surgery, history of small-bowel obstruction, hyperlipidemia, anxiety, depression, diabetes, migraine headaches, obstructive sleep apnea on CPAP, renal stones, back pain, arthritis, GERD presented to the hospital with a chief complaint of generalized weakness.? Noted to have following conditions #General Weakness: - unclear etiology - no evidence of infection - possibly 2/2 malnutrition as she has multiple electrolyte abnormality - PT/OT # Hypoalbuminemia:? - no evidence of liver ds on abd US - Patient placed on high-protein diet/ dietary supplements t.i.d..? Counseled on dietary modifications.? # Hypokalemia: - Repleted.? - Mag of 1.7 - Repeat BMP.? Monitor on telemetry. # acute Leg pain - bilateral - no evidence of dvt as has no stiffiness, no edema, no erythema or warmth. has no risk factors - will obtain CPK # History of anxiety / depression: Continue home medications.? DVT prophylaxis:? Subcu heparin Code status: Full code Quality Stroke Does the patient have a stroke diagnosis?: No VTE Prior VTE?: No VTE Risk Level:: Medical - low VTE Device Contraindication: Treatment Not Indicated VTE Drug Contraindication: N/A - Med Ordered
--- NOTE | 2021-07-04 13:46 | MHC.CM.PN ---
PT REPORTS SHE LIVES ALONE AND HAS A PRESIDENT PRACTICING UROLOGIST THAT COMES TO HER HOME DAILY TO ASSIST HER SHE REPORTS SHE IS SUPPOSED TO USE A CPAP FOR DME BUT SHE IS WAITING FOR THE EQUIPMENT TO BE REPLACED PT HAS A HCP WITH HER, A COPY WAS MADE AND PLACED IN HER CHART PT ALSO HAS HER COVID-19 VACCINE CARD WITH HER, A COPY OF THAT ALSO TAKEN PTS CURRENT DC PLAN IS HOME WITH RESUMPTION OF PRESIDENT PRACTICING UROLOGIST SERVICES PT WILL LIKELY NEED ASSISTANCE WITH TRANSPORTATION HOME
[2021-07-04 14:48] LABS: Anion Gap 11 (12-20); Blood Urea Nitrogen 11 mg/dL (9-16); Calcium 7.2 mg/dL (8.4-10.2); Carbon Dioxide 22 mmol/L (22-29); Chloride 114 mmol/L (96-108); Creatinine Clr Calc Pharmacy 83.7; Estimated Glomerular Filt Rate > 60; Glucose Random 145 mg/dL (60-115); Potassium 4.4 mmol/L (3.3-5.1); Sodium 143 mmol/L (135-145)
[2021-07-04] MEDS: Propranolol HCL LA 60 MG CAP.SA.24H PO (21:33)
[2021-07-04] MEDS: Atorvastatin Calcium 10 MG TABLET PO (21:33)
[2021-07-04] MEDS: Nortriptyline HCl 25 MG CAPSULE PO (21:33)
[2021-07-04] MEDS: Topiramate 100 MG TABLET PO (21:33)
[2021-07-04] MEDS: traZODone HCL 100 MG TABLET PO (21:33)
[2021-07-04] MEDS: Prazosin HCL 1 MG CAPSULE PO (21:33)
[2021-07-04] MEDS: Melatonin 3 MG TABLET 6 MG PO (21:38)
[2021-07-05 00:13] VITALS: PULSE 74; RESP 23; O2SAT 98
[2021-07-05] MEDS: Heparin Sodium,Porcine 5,000 UNIT/ML VIAL 5000 UNIT SUBCUT ×2 (02:07→09:35)
[2021-07-05] MEDS: Omeprazole 20 MG CAPSULE.DR PO (05:13)
--- NOTE | 2021-07-05 05:35 | PC.NURSE ---
Pt given toothbrush, tooth paste, towels and new gown per request Pt in bathroom to take a shower Will continue to monitor
[2021-07-05 06:36] VITALS: BP 122/66; PULSE 65; RESP 13; O2SAT 99
[2021-07-05 07:05] LABS: MANUAL DIFF FLAG NO
[2021-07-05 07:08] LABS: Basophils Percent Auto 0.3 % (0-2); Eosinophils Absolute Auto 0.1 X10*3/uL (0.0-0.4); Eosinophils Percent Auto 1.5 % (0-4); Hematocrit 28.9 % (37.0-47.0); Hemoglobin 9.3 g/dl (12.0-16.0); Imm Gran Abs Auto 0.02 X10*3/uL (0.00-0.03); Imm Gran Pct Auto 0.3 % (0.0-0.4); Lymphocytes Absolute Auto 3.1 X10*3/uL (1.2-4.9); Lymphocytes Percent Auto 41.9 % (20-40); Mean Corpuscular HGB Conc 32.2 g/dl (31.0-35.0); Mean Corpuscular Hemoglobin 27.4 pg (27.0-33.0); Mean Platelet Volume 10.9 fL (9.4-12.3); Monocytes Absolute Auto 0.5 X10*3/uL (0.1-1.2); Monocytes Percent Auto 7.1 % (2-11); Neutrophils Absolute Auto 3.6 x10*3/uL (2.0-8.3); Neutrophils Percent Auto 48.9 % (45-73); Platelet Count 142 X10*3/uL (160-400); Red Cell Distribution Width 18.5 % (11.0-16.0); White Blood Count 7.4 X10*3/uL (4.8-10.8)
[2021-07-05 07:49] LABS: Anion Gap 8 (12-20); Blood Urea Nitrogen 12 mg/dL (9-16); Calcium 7.4 mg/dL (8.4-10.2); Carbon Dioxide 27 mmol/L (22-29); Chloride 110 mmol/L (96-108); Creatinine Clr Calc Pharmacy 89.1; Estimated Glomerular Filt Rate > 60; Glucose Random 72 mg/dL (60-115); Potassium 3.4 mmol/L (3.3-5.1); Sodium 142 mmol/L (135-145)
[2021-07-05] MEDS: FLUoxetine HCl 20 MG CAPSULE 40 MG PO (09:34)
[2021-07-05] MEDS: Lurasidone HCl 40 MG TABLET 120 MG PO (09:34)
[2021-07-05] MEDS: Potassium Chloride Packet 20 MEQ PACKET 40 MEQ PO (09:34)
[2021-07-05] MEDS: 0.9 % Sodium Chloride Flush 3 ML SYRINGE IVFLUSH (09:35)
[2021-07-05] MEDS: Sucralfate Oral Suspension 1 GM/10 ML ORAL.SUSP PO (10:18)
[2021-07-05 10:32] VITALS: BP 129/61; PULSE 68; RESP 18; O2SAT 100
--- NOTE | 2021-07-05 11:09 | P.DS_ITS ---
DS: Providers Provider Date of Service: 07/05/21 Date of admission: 07/03/21 15:28 Primary care physician: Carri Reynoso MD DS: Diagnosis Discharge Diagnosis (1) Hypokalemia: Status: Acute (2) Hypoalbuminemia: Status: Acute DS: Summary Hospital Course Hospital Course: This is a 56-year-old female with past medical history of gastrectomy, distal absorption, history of paroxysmal as surgery, small-bowel obstruction, hyperli pidemia anxiety depression, diabetes and migraine headaches, TRUNG, among others who presents to the hospital with complaints of generalized weakness. Found to have hypoalbuminemia as well as hypokalemia. Patient was treated with potassium placement with potassium normalizing today. Patient was on acetazolamide which most likely contributed to her hypokalemia. Patient also reports poor intake of proteins which was encouraged to increase her protein intake. Ultrasound of the liver showed no abnormality. Patient also complained of lower extremity pain most likely contributed to hypokalemia which resolved after potassium was repleted.CPK was normal. Acetazolamide has been discontinued on discharge. Patient to follow-up with primary care physician for an alternative treatment as it is unclear why this medication is being prescribed. Patient has no reported history of hypertension. A CMP script has also been provided, follow with PCP in the next 1 week. Time Spent with Patient Time attestation: Total time spent providing and/or coordinating discharge services: Discharge coordination time: Greater than 30 minutes Quality: Stroke Does the patient have a stroke diagnosis?: No Physical Exam Vital Signs: Vital Signs: Last Vital Signs Temp 98.3 F 07/04/21 21:14 Pulse 68 07/05/21 10:32 Resp 18 07/05/21 10:32 BP 129/61 07/05/21 10:32 Pulse Ox 100 07/05/21 10:32 BMI result Body Mass Index 29.9 Const: General: cooperative and no acute distress Orientation/consciousness: patient oriented x3 Resp: Effort & Inspection: normal respiratory effort, able to speak in complete sentences and abnormal respiratory pattern Auscultation: clear to auscultation bilaterally Cardio: Rate: regular rate Rhythm: regular rhythm GI: Palpation (GI): Soft to palpation Auscultation: normal bowel sounds Skin: General skin exam: no rashes or lesions noted Neuro: General: patient oriented x3 Extrem: General: Yes normal to inspection and Yes no pedal edema DS: Data Data Completed and Pending Labs on day of discharge: Laboratory Results - last 24 hr 07/04/21 07/04/21 07/05/21 14:17 14:17 06:50 WBC 7.4 RBC 3.40 L Hgb 9.3 L Hct 28.9 L MCV 85.0 MCH 27.4 MCHC 32.2 RDW 18.5 H Plt Count 142 L MPV 10.9 Immature Gran % (Auto) 0.3 Neut % (Auto) 48.9 Lymph % (Auto) 41.9 H [place] % (Auto) 7.1 Eos % (Auto) 1.5 Baso % (Auto) 0.3 Lymph # (Auto) 3.1 [place] # (Auto) 0.5 Eos # (Auto) 0.1 Baso # (Auto) 0.0 Abs Immat Gran (auto) 0.02 Absolute Neuts (auto) 3.6 Absolute Nucleated RBC 0.000 Nucleated RBC % (auto) 0.0 Sodium 143 Potassium 4.4 D Chloride 114 H Carbon Dioxide 22 Anion Gap 11 L BUN 11 Creatinine 0.84 Estim Creat Clear Calc 83.7 Estimated GFR > 60 Random Glucose 145 H Calcium 7.2 L Total Creatine Kinase 71 Cancelled 07/05/21 06:50 WBC RBC Hgb Hct MCV MCH MCHC RDW Plt Count MPV Immature Gran % (Auto) Neut % (Auto) Lymph % (Auto) [place] % (Auto) Eos % (Auto) Baso % (Auto) Lymph # (Auto) [place] # (Auto) Eos # (Auto) Baso # (Auto) Abs Immat Gran (auto) Absolute Neuts (auto) Absolute Nucleated RBC Nucleated RBC % (auto) Sodium 142 Potassium 3.4 D Chloride 110 H Carbon Dioxide 27 Anion Gap 8 L BUN 12 Creatinine 0.79 Estim Creat Clear Calc 89.1 Estimated GFR > 60 Random Glucose 72 Calcium 7.4 L Total Creatine Kinase Discharge Plan Discharge Patient Disposition: Home, Self-Care Discharge Diagnosis: Hypokalemia, hypoalbuminemia Referrals: Carri Reynoso MD [Primary Care Provider] - 1 Week Discharge Medications: Continued magnesium oxide 400 mg magnesium capsule 400 mg PO DAILY RF: 0 baclofen 10 mg tablet 10 mg PO DAILY PRN (Reason: Muscle Spasm) 30 Days Qty: 30 RF: 6 topiramate 100 mg tablet 100 mg PO BEDTIME Qty: 30 RF: 6 celecoxib 200 mg Capsule 200 mg PO DAILY RF: 0 atorvastatin 10 mg Tablet 10 mg PO BEDTIME RF: 0 valacyclovir 1 gram Tablet 1,000 mg PO DAILY RF: 0 sennosides-docusate sodium [Senna Plus] 8.6-50 mg Tablet 2 tab-cap PO BEDTIME RF: 0 Linzess 290 mcg Capsule 290 mcg PO DAILY RF: 0 potassium chloride 10 mEq Tablet Extended Release 10 meq PO DAILY RF: 0 furosemide 20 mg Tablet 20 mg PO DAILY RF: 0 nortriptyline 25 mg Capsule 75 mg PO BEDTIME RF: 0 propranolol 60 mg Capsule,Extended Release 24 Hr 60 mg PO BEDTIME RF: 0 zolpidem 10 mg Tablet 10 mg PO BEDTIME RF: 0 diclofenac sodium 75 mg Tablet,Delayed Release (Dr/Ec) 150 mg PO BEDTIME RF: 0 sucralfate [Carafate] 100 mg/mL Suspension 10 ml PO DAILY PRN (Reason: Stomach Upset) RF: 0 Zyrtec 10 mg capsule 10 mg PO DAILY RF: 0 prazosin 1 mg capsule 1 mg PO BEDTIME RF: 0 trazodone 100 mg tablet 100 mg PO BEDTIME RF: 0 fluoxetine [Prozac] 40 mg capsule 40 mg PO DAILY RF: 0 Latuda 120 mg tablet 120 mg PO DAILY RF: 0 calcium citrate 1,000 mg tablet 1,000 mg PO DAILY RF: 0 pantoprazole 40 mg tablet,delayed release (DR/EC) 40 mg PO DAILY Qty: 30 RF: 3 sucralfate [Carafate] 100 mg/mL suspension 10 ml PO BID Qty: 1000 RF: 1 Discontinued acetazolamide 500 mg capsule, extended release 500 mg PO BID 30 Days Qty: 60 RF: 3 Discharge Orders: Discharge Order (Routine); Ordered 07/05/21 Ordered By: Radha Rivera Diet: advance to usual diet Activity on Discharge: As tolerated Stand Alone Forms: Patient Portal Discharge page Other Ambulatory Orders: Comprehensive Met. Panel (Routine) Timeframe: [id number] Facility: [facility] - Location: Laboratory Ordered By: Radha Rivera Care Plan Goals: you were admitted due to electrolyte abnormality. your potassium was found to be low as well as albumin. Potassium repleted and it is now back to normal. Please stop taking acetazolemide as it may have contributed to the severe low potassium. follow with you primary care doctor for an alternative treatment. a script also provided to repeat labs and check your potassium on wednesday please increase protein in your diet to improve albumin Health Concerns: low potassium and low albumin levels Plan of Treatment: discharge home and follow with PCP Assessment: see above
--- NOTE | 2021-07-05 11:34 | MHC.CM.PN ---
Addendum entered by Leslie Garcia 07/05/21 12:07: CM INFORMED PTS SON WOULD BE PROVIDING HER TRANSPORTATION HOME. [facility]IR [facility]AN CANCELLED Original Note: PT TO DC HOME TODAY WITH RESUMPTION OF HER [employer] SERVICES PT WILL BE TRANSPORTED VIA CHAIR VAN, REFERRAL SENT TO [facility] REQUESTING NEXT AVAILABLE
== END 2021-07-05 12:00 | disposition home or self-care (01) | DRG 425 ==
LOC: HO.ED 17:58 → HO.EDOVER 07-04 06:11
PROVIDERS: Physician Assistant; Admitting Provider Hospitalist; Emergency Provider Emergency Medicine; PCP Internal Medicine; Visit Provider Internal Medicine
DX: E87.6 Hypokalemia (principal); K91.2 Postsurgical malabsorption, not elsewhere classified; E88.09 Other disorders of plasma-protein metabolism, not elsewhere classified; Z20.822 Contact with and (suspected) exposure to COVID-19; Z96.651 Presence of right artificial knee joint; Z98.84 Bariatric surgery status; Z88.0 Allergy status to penicillin; Z88.6 Allergy status to analgesic agent; Z79.899 Other long term (current) drug therapy
CPT/HCPCS: 36415; 76705; 80048; 80053; 80076; 82550; 83735; 83880; 84132; 85025; 87635; 93005; 96365; 96366; 99285; 99291

== ENCOUNTER 2021-07-14 15:50 | Outpatient (REF) | payer MEDICAID, SELFPAY ==
[2021-07-14 16:11] LABS: MANUAL DIFF FLAG NO
[2021-07-14 16:56] LABS: Basophils Percent Auto 0.3 % (0-2); Eosinophils Percent Auto 0.5 % (0-4); Hematocrit 31.7 % (37.0-47.0); Hemoglobin 9.7 g/dl (12.0-16.0); Imm Gran Abs Auto 0.03 X10*3/uL (0.00-0.03); Imm Gran Pct Auto 0.4 % (0.0-0.4); Lymphocytes Absolute Auto 2.5 X10*3/uL (1.2-4.9); Lymphocytes Percent Auto 31.7 % (20-40); Mean Corpuscular HGB Conc 30.6 g/dl (31.0-35.0); Mean Corpuscular Hemoglobin 27.4 pg (27.0-33.0); Mean Corpuscular Volume 89.5 fL (80.0-98.0); Mean Platelet Volume 12.2 fL (9.4-12.3); Monocytes Absolute Auto 0.7 X10*3/uL (0.1-1.2); Monocytes Percent Auto 8.2 % (2-11); Neutrophils Absolute Auto 4.7 x10*3/uL (2.0-8.3); Neutrophils Percent Auto 58.9 % (45-73); Platelet Count 156 X10*3/uL (160-400); Red Blood Count 3.54 X10*6/uL (4.20-5.50); Red Cell Distribution Width 19.8 % (11.0-16.0)
[2021-07-14 17:43] LABS: Alanine Aminotransferase 17 U/L (0-31); Albumin Level 2.1 g/dL (3.5-5.0); Alkaline Phosphatase 125 U/L (39-117); Anion Gap 8 (12-20); Aspartate Amino Transferase 14 U/L (5-31); Bilirubin Total 0.3 mg/dL (0.0-1.0); Blood Urea Nitrogen 19 mg/dL (9-16); Calcium 7.6 mg/dL (8.4-10.2); Carbon Dioxide 22 mmol/L (22-29); Chloride 116 mmol/L (96-108); Estimated Glomerular Filt Rate > 60; Glucose Random 50 mg/dL (60-115); Potassium 4.7 mmol/L (3.3-5.1); Sodium 141 mmol/L (135-145); Total Protein 4.8 g/dL (6.5-8.0)
== END 2021-07-14 15:51 | disposition home or self-care (01) ==
LOC: HO.LAB 15:50
PROVIDERS: PCP Internal Medicine; Visit Provider Internal Medicine
DX: D64.89 Other specified anemias (principal); D69.59 Other secondary thrombocytopenia; E46 Unspecified protein-calorie malnutrition; E83.51 Hypocalcemia; E87.6 Hypokalemia; E88.09 Other disorders of plasma-protein metabolism, not elsewhere classified; R60.9 Edema, unspecified
CPT/HCPCS: 36415; 80053; 83735; 85025

== ENCOUNTER 2021-07-15 15:59 | Outpatient (REF) | payer MEDICAID, SELFPAY ==
[2021-07-15 17:29] LABS: Creatinine Urine 89.73 mg/dL; Protein/Creatinine Ratio, Ur 0.12 (<0.2); Total Protein Urine Random 11 mg/dL (<12)
== END 2021-07-15 16:00 | disposition home or self-care (01) ==
LOC: HO.LAB 15:59
PROVIDERS: PCP Internal Medicine; Visit Provider Internal Medicine
DX: D64.89 Other specified anemias (principal); D69.59 Other secondary thrombocytopenia; E45 Retarded development following protein-calorie malnutrition; E83.51 Hypocalcemia; E87.6 Hypokalemia; E88.09 Other disorders of plasma-protein metabolism, not elsewhere classified; R60.9 Edema, unspecified
CPT/HCPCS: 84156

== ENCOUNTER → 2021-08-01 08:19 | Outpatient (BNVA) | payer MEDICAID, SELFPAY | PROVIDERS: PCP Internal Medicine; Visit Provider Physician Assistant | DX: E66.3 Overweight (principal); E46 Unspecified protein-calorie malnutrition; Z98.84 Bariatric surgery status; Z68.28 Body mass index [BMI] 28.0-28.9, adult | CPT/HCPCS: 99212 ==

== ENCOUNTER 2021-08-28 07:58 | Outpatient (RCR) | payer MEDICAID, SELFPAY | END 2021-09-08 09:29 | disposition home or self-care (01) | LOC: HO.WCC 07:58 | PROVIDERS: PCP Internal Medicine; Visit Provider Surgery | DX: L02.32 Furuncle of buttock (principal); I10 Essential (primary) hypertension; Z79.899 Other long term (current) drug therapy; Z87.891 Personal history of nicotine dependence | CPT/HCPCS: 99213 ==

== ENCOUNTER 2021-09-16 12:36 | Outpatient (REF) | payer MEDICAID, SELFPAY ==
[2021-09-16 13:11] LABS: MANUAL DIFF FLAG NO
[2021-09-16 13:47] LABS: Basophils Percent Auto 0.2 % (0-2); Eosinophils Absolute Auto 0.1 X10*3/uL (0.0-0.4); Eosinophils Percent Auto 1.1 % (0-4); Hematocrit 34.1 % (37.0-47.0); Hemoglobin 10.3 g/dl (12.0-16.0); Imm Gran Abs Auto 0.02 X10*3/uL (0.00-0.03); Imm Gran Pct Auto 0.2 % (0.0-0.4); Lymphocytes Absolute Auto 1.7 X10*3/uL (1.2-4.9); Lymphocytes Percent Auto 21.2 % (20-40); Mean Corpuscular HGB Conc 30.2 g/dl (31.0-35.0); Mean Corpuscular Hemoglobin 29.3 pg (27.0-33.0); Mean Corpuscular Volume 96.9 fL (80.0-98.0); Mean Platelet Volume 11.4 fL (9.4-12.3); Monocytes Absolute Auto 0.3 X10*3/uL (0.1-1.2); Neutrophils Absolute Auto 5.9 x10*3/uL (2.0-8.3); Neutrophils Percent Auto 73.3 % (45-73); Platelet Count 149 X10*3/uL (160-400); Red Blood Count 3.52 X10*6/uL (4.20-5.50); Red Cell Distribution Width 15.4 % (11.0-16.0)
[2021-09-16 14:28] LABS: Alanine Aminotransferase 18 U/L (0-31); Albumin Level 2.6 g/dL (3.5-5.0); Alkaline Phosphatase 103 U/L (39-117); Anion Gap 9 (12-20); Aspartate Amino Transferase 16 U/L (5-31); Bilirubin Total 0.2 mg/dL (0.0-1.0); Blood Urea Nitrogen 25 mg/dL (9-16); Calcium 8.2 mg/dL (8.4-10.2); Carbon Dioxide 23 mmol/L (22-29); Chloride 112 mmol/L (96-108); Estimated Glomerular Filt Rate > 60; Glucose Random 76 mg/dL (60-115); Potassium 3.7 mmol/L (3.3-5.1); Sodium 140 mmol/L (135-145); Total Protein 5.5 g/dL (6.5-8.0)
[2021-09-16 14:50] LABS: Ferritin 77 ng/mL (10-250); Thyroid Stimulating Hormone 0.47 uIU/mL (0.32-4.0)
[2021-09-16 14:54] LABS: Vitamin B12 589 pg/mL (200-900)
== END 2021-09-16 12:37 | disposition home or self-care (01) ==
LOC: HO.LAB 12:36
PROVIDERS: PCP Internal Medicine; Visit Provider Internal Medicine
DX: D64.9 Anemia, unspecified (principal); E46 Unspecified protein-calorie malnutrition; G25.0 Essential tremor; H81.12 Benign paroxysmal vertigo, left ear
CPT/HCPCS: 36415; 80053; 82607; 82728; 84443; 85025

== ENCOUNTER 2021-10-21 13:05 | Emergency (ER) | payer MEDICAID, SELFPAY ==
[2021-10-21 13:23] VITALS: BP 126/75; PULSE 82; RESP 18; TEMP 35.9; O2SAT 100; BMI 24.8
[2021-10-21 14:37] LABS: MANUAL DIFF FLAG NO
[2021-10-21 14:40] LABS: Appearance Urine CLOUDY; Basophils Percent Auto 0.2 % (0-2); Color Urine YELLOW; Eosinophils Percent Auto 0.4 % (0-4); Glucose Urine UA NEG (NEG); Hematocrit 36.4 % (37.0-47.0); Hemoglobin 11.5 g/dl (12.0-16.0); Imm Gran Abs Auto 0.03 X10*3/uL (0.00-0.03); Imm Gran Pct Auto 0.4 % (0.0-0.4); Leukocyte Esterase Urine 1+ (NEG); Lymphocytes Absolute Auto 2.5 X10*3/uL (1.2-4.9); Lymphocytes Percent Auto 30.7 % (20-40); Mean Corpuscular HGB Conc 31.6 g/dl (31.0-35.0); Mean Corpuscular Hemoglobin 28.9 pg (27.0-33.0); Mean Corpuscular Volume 91.5 fL (80.0-98.0); Mean Platelet Volume 10.9 fL (9.4-12.3); Monocytes Absolute Auto 0.4 X10*3/uL (0.1-1.2); Monocytes Percent Auto 4.6 % (2-11); Neutrophils Absolute Auto 5.2 x10*3/uL (2.0-8.3); Neutrophils Percent Auto 63.7 % (45-73); Nitrite Urine POS (NEG); Platelet Count 148 X10*3/uL (160-400); Red Blood Count 3.98 X10*6/uL (4.20-5.50); Red Cell Distribution Width 14.6 % (11.0-16.0); Specific Gravity - Urine 1.025 (1.005-1.025); UACC Culture Trigger YES; Urine Blood NEG (NEG); Urine Ketones NEG (NEG); Urine Protein NEG (NEG-TRACE); White Blood Count 8.2 X10*3/uL (4.8-10.8)
[2021-10-21 14:53] LABS: Bacteria Urine 3+ /LPF; RBC Urine 0 /HPF (0); Squamous Epithelial Cell Urine 1+ /LPF
[2021-10-21 15:01] LABS: Alanine Aminotransferase 23 U/L (0-31); Albumin Level 2.6 g/dL (3.5-5.0); Alkaline Phosphatase 119 U/L (39-117); Anion Gap 8 (12-20); Aspartate Amino Transferase 19 U/L (5-31); Bilirubin Direct < 0.2 mg/dL (0.0-0.5); Bilirubin Total < 0.2 mg/dL (0.0-1.0); Blood Urea Nitrogen 23 mg/dL (9-16); Calcium 8.5 mg/dL (8.4-10.2); Carbon Dioxide 24 mmol/L (22-29); Chloride 110 mmol/L (96-108); Creatinine Clr Calc Pharmacy 77.2; Estimated Glomerular Filt Rate > 60; Glucose Random 86 mg/dL (60-115); Potassium 4.3 mmol/L (3.3-5.1); Sodium 138 mmol/L (135-145); Total Protein 5.5 g/dL (6.5-8.0)
[2021-10-21 15:50] VITALS: BP 102/38; PULSE 84; RESP 16; TEMP 36.9; O2SAT 100
--- NOTE | 2021-10-21 16:04 | ED_ITS ---
HPI - General Adult General Chief complaint: Abdominal Pain Stated complaint: abd pain Time Seen by Provider: 10/21/21 16:04 Source: patient Mode of arrival: ambulatory Limitations: no limitations History of Present Illness HPI narrative: Patient is a 56 year old female presenting to the emergency department today with lower abdominal pain, an episode of vomiting, and nausea. Patient states that starting last night she has had lower abdominal pain with 1 episode of vomiting and consistent nausea. Patient states that she has pain with urination. Patient denies any dizziness, lightheadedness, fever, chills, blurry vision, double vision, loss of vision, chest pain, difficulty breathing, shortness of breath, back pain, night sweats, increased urinary frequency, increased urinary urgency, blood in her urine or stool, syncope or a near syncopal episode, recent trauma or falls, bowel incontinence, bladder incontinence, bowel retention, bladder retention, or any other complaints at this time. Onset (ago): day(s) Location: abdomen Radiation: non-radiation Severity: mild Severity scale (1-10): 3 Quality: dull Pain Consistency: constant Relieving factors: none Exacerbating factors: none Associated symptoms: nausea/vomiting Treatments prior to arrival: none Related Data Home Medications Medication Instructions Recorded Confirmed calcium citrate 1,000 mg tablet 1,000 mg PO DAILY 05/27/20 08/01/21 cetirizine 10 mg capsule (Zyrtec) 10 mg PO DAILY 05/27/20 08/01/21 fluoxetine 40 mg capsule (Prozac) 40 mg PO DAILY 05/27/20 08/01/21 lurasidone 120 mg tablet (Latuda) 120 mg PO DAILY 05/27/20 08/01/21 prazosin 1 mg capsule 1 mg PO BEDTIME 05/27/20 08/01/21 trazodone 100 mg tablet 100 mg PO BEDTIME 05/27/20 08/01/21 atorvastatin 10 mg tablet 10 mg PO BEDTIME 05/16/21 08/01/21 celecoxib 200 mg capsule 200 mg PO DAILY 05/16/21 08/01/21 linaclotide 290 mcg capsule 290 mcg PO DAILY 05/16/21 08/01/21 (Linzess) sennosides 8.6 mg-docusate sodium 2 tab-cap PO BEDTIME 05/16/21 08/01/21 50 mg tablet (Senna Plus) valacyclovir 1 gram tablet 1,000 mg PO DAILY 05/16/21 08/01/21 magnesium oxide 400 mg PO DAILY 06/17/21 08/01/21 diclofenac sodium 75 mg 150 mg PO BEDTIME 07/04/21 08/01/21 tablet,delayed release furosemide 20 mg tablet 20 mg PO DAILY 07/04/21 08/01/21 nortriptyline 25 mg capsule 75 mg PO BEDTIME 07/04/21 08/01/21 potassium chloride 10 mEq 10 meq PO DAILY 07/04/21 08/01/21 tablet,extended release propranolol 60 mg capsule,24 60 mg PO BEDTIME 07/04/21 08/01/21 hr,extended release sucralfate 100 mg/mL oral 10 ml PO DAILY PRN 07/04/21 08/01/21 suspension (Carafate) zolpidem 10 mg tablet 10 mg PO BEDTIME 07/04/21 08/01/21 Previous Rx's Medication Instructions Recorded pantoprazole 40 mg tablet,delayed 40 mg PO DAILY #30 tab 05/21/21 release baclofen 10 mg tablet 10 mg PO DAILY PRN 30 Days #30 tab 06/17/21 topiramate 100 mg tablet 100 mg PO BEDTIME #30 tab 06/17/21 propranolol 20 mg tablet 20 mg PO BID #60 tab 08/19/21 riboflavin (vitamin B2) 100 mg 200 mg PO BID #120 tab 08/19/21 tablet acetazolamide 500 mg 500 mg PO BID #60 cap 09/15/21 capsule,extended release cephalexin 500 mg capsule 500 mg PO Q6H 7 Days #28 cap 10/21/21 fluconazole 150 mg tablet 150 mg PO Q3D #2 tab 10/21/21 (Diflucan) Allergies Allergy/AdvReac Type Severity Reaction Status Date / Time amoxicillin Allergy Mild yeast Verified 05/21/21 13:27 infection gabapentin AdvReac Mild Swelling Verified 05/21/21 13:27 Meloxicam Allergy Unknown swelling Uncoded 05/21/21 13:27 Review of Systems Constitutional: Constitutional: Reports no additional constitutional complaints, Denies chills, Denies fever(s) and Denies night sweats Eyes: Eyes: Reports no additional eye complaints, Denies blurry vision, Denies change in vision, Denies diplopia, Denies eye discharge, Denies loss of vision and Denies eye pain ENT: Denies dizziness Cardiovascular: Cardiovascular: Reports no additional cardiovascular complaints, Denies chest pain, Denies lightheadedness, Denies Loss of Co nsciousness and Denies dyspnea Respiratory: Respiratory: Reports no additional respiratory complaints and Denies dyspnea Gastrointestinal: Gastrointestinal: Reports no additional gastrointestinal complaints, Reports abdominal pain, Denies melena, Denies hematochezia, Denies change in bowel habits and Denies change in stool character Genitourinary: Genitourinary: Denies hematuria, Denies urinary frequency, Reports dysuria, Denies urinary incontinence, Denies urinary hesitancy and Denies urinary urgency Musculoskeletal: Musculoskeletal: Reports no additional musculoskeletal compl aints, Denies numbness and Denies tingling Neurologic: Denies dizziness, Denies loss of vision, Denies numbness and Denies tingling Psychiatric: Psychiatric: Reports no additional psychiatric complaints Endocrine: Endocrine: Reports no additional endocrine complaints Hematologic/Lymphatic: Hematologic/Lymphatic: Reports no additional hematologic/lymphatic complaints Allergic/Immunologic: Allergic/Immunologic: Reports no additional allergic/immunologic complaints [facility] Past Medical History Attestation statement: The following information was validated with the patient. Source: old records reviewed Medical History Anemia Anxiety Arthritis Back pain Carpal tunnel syndrome Depression Excess skin of upper extremity H/O nephrolithotomy with removal of calculi History of lipoma Hypercholesterolemia Lipoma Lymphedema Migraines Sleep apnea with use of continuous positive airway pressure (CPAP) Type 2 diabetes mellitus Surgical History H/O cervical discectomy History of back surgery History of Zane-en-Y gastric bypass Hx of section Hx of colonoscopy Hx of lumpectomy S/P carpal tunnel release S/P knee replacement Family History Family History Father No problems noted. Mother Arthritis Brother No problems noted. Brother No problems noted. Sister No problems noted. Sister No problems noted. Sister No problems noted. Sister No problems noted. Son No problems noted. Daughter No problems noted. Social History Social History Household Members: None Alcohol intake: never Patient Tobacco Use Status: Former Tobacco user Advance Directives: No Advance Directives Information Provided: No Patient : No service: No Current occupational status: disabled Physical Exam ED Vital Signs: Vital Signs - 24 hr 10/21/21 13:23 10/21/21 15:50 Temperature 96.7 F L 98.5 F Pulse Rate 82 84 Respiratory Rate 18 16 Blood Pressure 126/75 102/38 L Pulse Oximetry 100 100 BMI result Body Mass Index 24.8 Const General: cooperative, no acute distress, alert and awake Nutritional Appearance: well nourished Orientation/consciousness: patient oriented x3 Limitations: no limitations HENMT Head: Yes normal to inspection and Yes atraumatic Ears: hearing grossly normal bilaterally and external ears normal General nose exam: Normal external nose present, no nasal discharge noted and no epistaxis Face and sinus: Yes normal facial exam, No abrasion and No laceration Mouth: Normal oral and palatal mucosa present, no drooling and no muffled voice Eyes General: appearance normal, both eyes and all related structures Periorbital: periorbital findings normal Eyelids: Yes eyelids normal Conjunctivae: conjunctivae normal Pupils: Equal, round and reactive pupils present EOM: EOMs intact bilaterally Neck Neck: Yes normal visual inspection, Yes full ROM and Yes no lymphadenopathy Chest Chest palpation & inspection: normal inspection of the chest Resp Effort & Inspection: normal respiratory effort and able to speak in complete sentences Auscultation: clear to auscultation bilaterally Cardio Rate: regular rate Rhythm: regular rhythm GI Inspection: Yes normal to inspection Palpation (GI): Soft to palpation, not firm, nontender, no guarding and not rigid Neuro General: patient oriented x3 and moves all extremities Cranial nerves: Yes Equal, round and reactive pupils present Cognition (Neuro): normal cognition Motor exam (neuro): 5/5 motor strength present throughout Sensory Exam: Normal double simultaneous stimulation for sensation Coordination: [id number] test normal Extrem General: Yes normal to inspection, Yes full ROM and Yes capillary refill normal Psych Appearance: grossly normal Mental Status: mental status grossly normal Affect: normal affect Attitude: cooperative Thought process: Normal thought process present Thought content: Normal thought content present Insight: Good insight present (Psych) Medical Decision Making MDM Narrative Medical decision making narrative: Patient is a 56 year old female presenting to the emergency department today with lower abdominal pain and painful urination. Patient's physical exam was unremarkable. Patient's blood work was unremarkable. Patient's urine showed an acute urinary tract infection. I explained my physical exam findings as well as all test results to the patient. I answered all questions asked by the patient. I stressed the importance of the patient taking her medication as prescribed. I stressed the importance of the patient following up with her primary care provider. I stressed the importance of the patient returning to the emergency department immediately if her symptoms were to worsen or if she were to develop any dizziness, shortness of breath, difficulty breathing, chest pain, blurry vision, loss of vision, nausea, vomiting, abdominal pain, fever, chills, back pain, or any other complaints. Patient verbalized agreement and understanding with this treatment plan and discharge. Differential Diagnosis Differential Diagnosis: urinary tract infection, colitis Medical Records Medical records reviewed: Yes I reviewed the patient's medical records. Lab Data Lab results reviewed: Yes I reviewed the patient's lab results. Result diagrams: 10/21/21 14:29 10/21/21 14:29 Labs: Lab Results 10/21/21 10/21/21 10/21/21 Range/Units 14:29 14:29 14:29 WBC 8.2 (4.8-10.8) X10*3/uL RBC 3.98 L (4.20-5.50) X10*6/uL Hgb 11.5 L (12.0-16.0) g/dl Hct 36.4 L (37.0-47.0) % MCV 91.5 (80.0-98.0) fL MCH 28.9 (27.0-33.0) pg MCHC 31.6 (31.0-35.0) g/dl RDW 14.6 (11.0-16.0) % Plt Count 148 L (160-400) X10*3/uL MPV 10.9 (9.4-12.3) fL Immature Gran % (Auto) 0.4 (0.0-0.4) % Neut % (Auto) 63.7 (45-73) % Lymph % (Auto) 30.7 (20-40) % [place] % (Auto) 4.6 (2-11) % Eos % (Auto) 0.4 (0-4) % Baso % (Auto) 0.2 (0-2) % Lymph # (Auto) 2.5 (1.2-4.9) X10*3/uL [place] # (Auto) 0.4 (0.1-1.2) X10*3/uL Eos # (Auto) 0.0 (0.0-0.4) X10*3/uL Baso # (Auto) 0.0 (0.0-0.2) X10*3/uL Abs Immat Gran (auto) 0.03 (0.00-0.03) X10*3/uL Absolute Neuts (auto) 5.2 (2.0-8.3) x10*3/uL Absolute Nucleated RBC 0.000 (0.0-0.012) X10*3/uL Nucleated RBC % (auto) 0.0 (0.0-0.2) /100WBC Sodium 138 (135-145) mmol/L Potassium 4.3 (3.3-5.1) mmol/L Chloride 110 H (96-108) mmol/L Carbon Dioxide 24 (22-29) mmol/L Anion Gap 8 L (12-20) BUN 23 H (9-16) mg/dL Creatinine 0.78 (0.5-1.4) mg/dL Estim Creat Clear Calc 77.2 Estimated GFR > 60 Random Glucose 86 (60-115) mg/dL Calcium 8.5 (8.4-10.2) mg/dL Total Bilirubin < 0.2 (0.0-1.0) mg/dL Direct Bilirubin < 0.2 (0.0-0.5) mg/dL AST 19 (5-31) U/L ALT 23 (0-31) U/L Alkaline Phosphatase 119 H (39-117) U/L Total Protein 5.5 L (6.5-8.0) g/dL Albumin 2.6 L (3.5-5.0) g/dL Urine Color YELLOW Urine Appearance CLOUDY Urine pH 6.0 (5.0-8.0) Ur Specific [place] 1.025 (1.005-1.025) Urine Protein NEG (NEG-TRACE) MG/DL Urine Glucose (UA) NEG (NEG) MG/DL Urine Ketones NEG (NEG) MG/DL Urine Blood NEG (NEG) Urine Nitrite POS H (NEG) Ur Leukocyte Esterase 1+ H (NEG) Urine RBC 0 (0) /HPF Urine WBC 15-29 H (0-4) /HPF Ur Squamous Epith Cells 1+ /LPF Urine Bacteria 3+ /LPF Discharge Plan Discharge Clinical Impression: Urinary tract infection Patient Disposition: Home, Self-Care Instructions: Urinary Tract Infection in Women (DC) Additional Instructions: Follow up with your primary care provider. Return to the emergency department immediately if your symptoms worsen or if you develop any dizziness, shortness of breath, difficulty breathing, chest pain, blurry vision, loss of vision, nausea, vomiting, abdominal pain, fever, chills, back pain, or any other complaints. Prescriptions: New cephalexin 500 mg capsule 500 mg PO Q6H 7 Days Qty: 28 0RF fluconazole [Diflucan] 150 mg tablet 150 mg PO Q3D Qty: 2 0RF No Action magnesium oxide 400 mg magnesium capsule 400 mg PO DAILY 0RF baclofen 10 mg tablet 10 mg PO DAILY PRN (Reason: Muscle Spasm) 30 Days Qty: 30 6RF topiramate 100 mg tablet 100 mg PO BEDTIME Qty: 30 6RF propranolol 20 mg tablet 20 mg PO BID Qty: 60 3RF riboflavin (vitamin B2) 100 mg tablet 200 mg PO BID Qty: 120 3RF acetazolamide 500 mg capsule, extended release 500 mg PO BID Qty: 60 2RF celecoxib 200 mg Capsule 200 mg PO DAILY 0RF atorvastatin 10 mg Tablet 10 mg PO BEDTIME 0RF valacyclovir 1 gram Tablet 1,000 mg PO DAILY 0RF sennosides-docusate sodium [Senna Plus] 8.6-50 mg Tablet 2 tab-cap PO BEDTIME 0RF Linzess 290 mcg Capsule 290 mcg PO DAILY 0RF potassium chloride 10 mEq Tablet Extended Release 10 meq PO DAILY 0RF furosemide 20 mg Tablet 20 mg PO DAILY 0RF nortriptyline 25 mg Capsule 75 mg PO BEDTIME 0RF propranolol 60 mg Capsule,Extended Release 24 Hr 60 mg PO BEDTIME 0RF zolpidem 10 mg Tablet 10 mg PO BEDTIME 0RF diclofenac sodium 75 mg Tablet,Delayed Release (Dr/Ec) 150 mg PO BEDTIME 0RF sucralfate [Carafate] 100 mg/mL Suspension 10 ml PO DAILY PRN (Reason: Stomach Upset) 0RF Zyrtec 10 mg capsule 10 mg PO DAILY 0RF prazosin 1 mg capsule 1 mg PO BEDTIME 0RF trazodone 100 mg tablet 100 mg PO BEDTIME 0RF fluoxetine [Prozac] 40 mg capsule 40 mg PO DAILY 0RF Latuda 120 mg tablet 120 mg PO DAILY 0RF Rx Instructions: must administer with food (at least 350 calories) calcium citrate 1,000 mg tablet 1,000 mg PO DAILY 0RF pantoprazole 40 mg tablet,delayed release (DR/EC) 40 mg PO DAILY Qty: 30 3RF Referrals: Carri Reynoso MD [Primary Care Provider] - (Follow up with your PCP.) Interventions: ED Discharge Assessment Last Done: 10/21/21 16:38 Discharge Date/Time: 10/21/21 16:43 Print Language: Portuguese
== END 2021-10-21 16:43 | disposition home or self-care (01) ==
PROVIDERS: Emergency Provider Emergency Medicine; PCP Internal Medicine
DX: N39.0 Urinary tract infection, site not specified (principal); R11.2 Nausea with vomiting, unspecified; Z79.899 Other long term (current) drug therapy
CPT/HCPCS: 36415; 80053; 81001; 82248; 85025; 87086; 87088; 87186; 99283; 99284

== ENCOUNTER → 2021-10-30 08:17 | Outpatient (BNVA) | payer MEDICAID, SELFPAY | PROVIDERS: PCP Internal Medicine; Visit Provider Physician Assistant | DX: E46 Unspecified protein-calorie malnutrition (principal) ==

== ENCOUNTER → 2021-12-05 10:56 | Outpatient (BNVA) | payer MEDICAID, SELFPAY | PROVIDERS: PCP Internal Medicine; Visit Provider Physician Assistant Surgical | DX: E66.3 Overweight (principal); L98.7 Excessive and redundant skin and subcutaneous tissue; E46 Unspecified protein-calorie malnutrition; Z98.84 Bariatric surgery status; Z68.25 Body mass index [BMI] 25.0-25.9, adult | CPT/HCPCS: 99212 ==

== ENCOUNTER → 2022-01-16 11:02 | Outpatient (BNVA) | payer MEDICAID, SELFPAY | PROVIDERS: PCP Internal Medicine; Visit Provider Physician Assistant Surgical | DX: L98.7 Excessive and redundant skin and subcutaneous tissue (principal); Z98.84 Bariatric surgery status | CPT/HCPCS: 99212 ==

== ENCOUNTER 2022-02-13 07:18 | Outpatient (REF) | payer MEDICAID, SELFPAY | END 2022-02-13 07:19 | disposition home or self-care (01) | LOC: HO.HOSX 07:18 | PROVIDERS: Visit Provider Physician Assistant | DX: Z13.89 Encounter for screening for other disorder (principal) ==

== ENCOUNTER → 2022-03-04 15:25 | Outpatient (BNVA) | payer MEDICAID, SELFPAY | PROVIDERS: PCP Internal Medicine; Visit Provider Nurse Practitioner Family | DX: I95.9 Hypotension, unspecified (principal); G43.709 Chronic migraine without aura, not intractable, without status migrainosus; G93.2 Benign intracranial hypertension; Z79.899 Other long term (current) drug therapy | CPT/HCPCS: 99212 ==

== ENCOUNTER → 2022-06-03 13:28 | Outpatient (BNVA) | payer MEDICAID, SELFPAY | PROVIDERS: PCP Internal Medicine; Visit Provider Nurse Practitioner Family | DX: G93.2 Benign intracranial hypertension (principal); G43.709 Chronic migraine without aura, not intractable, without status migrainosus; I95.9 Hypotension, unspecified; Z79.899 Other long term (current) drug therapy | CPT/HCPCS: 99212 ==

== ENCOUNTER → 2022-07-06 14:41 | Outpatient (BNVA) | payer MEDICAID, SELFPAY | PROVIDERS: PCP Internal Medicine; Visit Provider Physician Assistant Surgical | DX: E66.3 Overweight (principal); Z68.25 Body mass index [BMI] 25.0-25.9, adult; L98.7 Excessive and redundant skin and subcutaneous tissue; Z98.84 Bariatric surgery status | CPT/HCPCS: 99212 ==

== ENCOUNTER → 2022-08-07 09:37 | Outpatient (BNVA) | payer MEDICAID, SELFPAY | PROVIDERS: PCP Internal Medicine; Referring Provider Internal Medicine; Visit Provider Physician Assistant Surgical | DX: L98.7 Excessive and redundant skin and subcutaneous tissue (principal); Z98.84 Bariatric surgery status | CPT/HCPCS: 99212 ==

== ENCOUNTER 2022-08-19 12:15 | Outpatient (REF) | payer MEDICAID, SELFPAY ==
[2022-08-19 13:43] LABS: MANUAL DIFF FLAG NO
[2022-08-19 13:52] LABS: Basophils Percent Auto 0.3 % (0-2); Eosinophils Absolute Auto 0.1 X10*3/uL (0.0-0.4); Eosinophils Percent Auto 1.3 % (0-4); Hematocrit 32.1 % (37.0-47.0); Hemoglobin 9.8 g/dl (12.0-16.0); Imm Gran Abs Auto 0.02 X10*3/uL (0.00-0.03); Imm Gran Pct Auto 0.3 % (0.0-0.4); Lymphocytes Absolute Auto 1.2 X10*3/uL (1.2-4.9); Lymphocytes Percent Auto 18.1 % (20-40); Mean Corpuscular HGB Conc 30.5 g/dl (31.0-35.0); Mean Corpuscular Hemoglobin 28.8 pg (27.0-33.0); Mean Corpuscular Volume 94.4 fL (80.0-98.0); Mean Platelet Volume 11.5 fL (9.4-12.3); Monocytes Absolute Auto 0.3 X10*3/uL (0.1-1.2); Monocytes Percent Auto 4.2 % (2-11); Neutrophils Absolute Auto 5.1 x10*3/uL (2.0-8.3); Neutrophils Percent Auto 75.8 % (45-73); Platelet Count 172 X10*3/uL (160-400); Red Cell Distribution Width 17.5 % (11.0-16.0); White Blood Count 6.7 X10*3/uL (4.8-10.8)
[2022-08-19 14:41] LABS: Ferritin 85 ng/mL (10-250); Folate 14.6 ng/mL (> or = 4.0); Thyroid Stimulating Hormone 1.58 uIU/mL (0.32-4.0); Vitamin B12 729 pg/mL (200-900)
== END 2022-08-19 12:16 | disposition home or self-care (01) ==
LOC: HO.10HDL 12:15
PROVIDERS: Visit Provider Internal Medicine
DX: D50.8 Other iron deficiency anemias (principal); E46 Unspecified protein-calorie malnutrition; I95.89 Other hypotension; R42 Dizziness and giddiness
CPT/HCPCS: 36415; 82607; 82728; 82746; 84443; 85025

== ENCOUNTER → 2022-09-17 10:31 | Outpatient (BNVA) | payer MEDICAID, SELFPAY | PROVIDERS: PCP Internal Medicine; Visit Provider Psychiatry & Neurology Neurology | DX: G43.709 Chronic migraine without aura, not intractable, without status migrainosus (principal) | CPT/HCPCS: 64615; 99211; J0585 ==

== ENCOUNTER → 2022-09-25 13:41 | Outpatient (BNVA) | payer MEDICAID, SELFPAY | PROVIDERS: PCP Internal Medicine; Referring Provider Internal Medicine; Visit Provider Physician Assistant Surgical | DX: L98.7 Excessive and redundant skin and subcutaneous tissue (principal); R21 Rash and other nonspecific skin eruption; Z98.84 Bariatric surgery status | CPT/HCPCS: 99212 ==

== ENCOUNTER → 2022-10-01 15:42 | Outpatient (BNVA) | payer MEDICAID, SELFPAY | PROVIDERS: PCP Internal Medicine; Visit Provider Dietitian, Registered | DX: Z90.3 Acquired absence of stomach [part of] (principal) | CPT/HCPCS: 97803 ==

== ENCOUNTER 2022-12-28 12:15 | Outpatient (AMB) | payer MEDICAID, SELFPAY ==
--- NOTE | 2022-12-28 12:32 | A.OFFVIS_ITS ---
Intake Vital Signs 12/28/22 12:36 BP 108/70 Blood Pressure Location Rt brachial Intake Visit Reasons: Botox(B&B)-lvm Intake Note: Patient presents for botox injection. Allergies baclofen Allergy (Intermediate, Verified 12/28/22 12:34) Swelling amoxicillin Allergy (Mild, Verified 12/28/22 12:34) yeast infection gabapentin Adverse Reaction (Mild, Verified 12/28/22 12:34) Swelling Meloxicam Allergy (Unknown, Uncoded 12/28/22 12:34) swelling Medication List - Last Reconciled 12/28/22 by Yas Adam MD acetaminophen 650 mg PO Q6H PRN acetaminophen 650 mg NV Q4-6H PRN ascorbic acid (vitamin C) (Vitamin C) 500 mg PO DAILY bisacodyl 10 mg NV DAILY PRN blood pressure monitor Check BP bid and prn lightheadedness cetirizine (Zyrtec) 10 mg PO DAILY cholecalciferol (vitamin D3) 25 mcg PO DAILY clonazepam 0.5 mg PO BID dicyclomine 10 mg PO ONCE hydroxyzine HCl 25 mg PO TID levetiracetam 500 mg PO BID linaclotide (Linzess) 290 mcg PO DAILY loperamide 2 mg PO Q6H PRN lubiprostone 8 mcg PO DAILY lurasidone (Latuda) 120 mg PO DAILY magnesium oxide 400 mg PO DAILY meclizine 12.5 mg PO TID melatonin 10 mg PO BEDTIME midodrine 5 mg PO TID naloxone 4 mg/actuation 4 mg intranasal Q2M PRN onabotulinumtoxinA (Botox) 200 units IM ONCE 12 weeks pantoprazole 40 mg PO DAILY polyethylene glycol 3350 17 grams PO DAILY potassium chloride ER 20 mEq PO DAILY propranolol 20 mg orally 1 tab qhs x's 1 week, then stop; 1-2 a day, 60mg bedtime 7 days riboflavin (vitamin B2) 100 mg PO BEDTIME sodium phosphates 19-7 gram/118 mL (Fleet Enema) 197 mL NV DAILY topiramate 100 mg PO BEDTIME valacyclovir 1,000 mg PO DAILY zinc acetate (Galzin) 50 mg PO DAILY HPI HPI Comments History of Present Illness Details ? 57y/o female comes for treatment of migraines with botox. ??? Most frequent reported adverse reactions following injection of botox for chronic migraine include neck pain (9%), headache(5%), eyelid ptosis(4%), migraine(4%), muscular weakness(4%), musculuskeletal stiffness(4%), bronchitis(3%), injection site pain (3%), musculoskeletal pain(3%), myalgia(3%), facial paresis(2%), HTN(2%) and muscle spasms(2%) were discussed in detail. ??? Botulinum toxin typeA 200units Lot no [id number] expiration Jul 2025 was diluted with 4 cc of normal saline . ??? Muscles injected- ??? Frontalis 4 sites ??? Procerus 1 site ??? Iron Guardrail Installer- 2 sites ??? Temporalis- 8 sites ??? Occipitalis- 6 sites ??? Cervical paraspinals- 4 sites ??? Trapezius- 6 sites- 5 units each ??? 5 units each in 31 site ??? Total use- 155units ??? Discarded-45units [facility] Medical History Anxiety Arthritis Back pain Carpal tunnel syndrome Excess skin of upper extremity H/O nephrolithotomy with removal of calculi History of lipoma Hypercholesterolemia Internal hernia Lipoma Lymphedema Migraines Sleep apnea with use of continuous positive airway pressure (CPAP) Type 2 diabetes mellitus Surgical History H/O cervical discectomy History of back surgery History of gastric surgery History of Zane-en-Y gastric bypass Hx of section Hx of colonoscopy Hx of lumpectomy S/P carpal tunnel release S/P knee replacement Family History Father No problems noted. Mother Arthritis Brother No problems noted. Brother No problems noted. Sister No problems noted. Sister No problems noted. Sister No problems noted. Sister No problems noted. Son No problems noted. Daughter No problems noted. Social History Household Members: None Alcohol intake: current Alcohol intake frequency: holidays/special occasions only Patient Tobacco Use Status: Former Tobacco user Quit Date: 2017 service: No Current occupational status: disabled Physical Exam Vital Signs: Last Vital Signs BP 108/70 12/28/22 12:36 Const General: cooperative and no acute distress HEENT Other: Diffuse left side of head, left [place], left TMJ, left maxillary tenderness to touch. TM left - wax presence Head: Yes normocephalic Ears: TM normal on the right Back/Spine/Pelvis Other: Bilateral posterior cervical tenderness, more so on left. Office Procedures Botulinum toxin Injection 31984 - Migraine Procedure code (CPT) selection complete Office Meds onabotulinumtoxinA Performing Provider: Yas Adam MD Administered by: Yas Adam MD on 12/28/22 13:21 Dose Route Admin Location Lot Number Expiration Date [facility] Manager Float 155 unit subcut [id number] 07/15/25 [id number] [employer] Comments: see HPI Assessment & Plan Assessment & Plan (1) Chronic migraine without aura: Comment: w/ neuralgia component over left presybeterian Code(s): G43.709 - Chronic migraine without aura, not intractable, without status migrainosus Plan Patient tolerated the procedure well she will call with any side effects Orders: Orders AMB Botulinum toxin Injection Today G43.709 - Chronic migraine without aura, not intractable, without status migrainosus Coding Level of Care Code Est Pt Level 1 (09458) Diagnoses Chronic migraine without aura G43.709 CPT Codes Botox Injection - Botox 3: 96153 - Migraine ([id number])
[2022-12-28 12:36] VITALS: BP 108/70
== END 2022-12-28 13:10 | disposition home or self-care (01) ==
PROVIDERS: Visit Provider Psychiatry & Neurology Neurology
DX: G43.709 Chronic migraine without aura, not intractable, without status migrainosus (principal)
CPT/HCPCS: 64615

== ENCOUNTER → 2022-12-28 12:15 | Outpatient (BNVA) | payer MEDICAID, SELFPAY | PROVIDERS: Visit Provider Psychiatry & Neurology Neurology | DX: G43.709 Chronic migraine without aura, not intractable, without status migrainosus (principal) | CPT/HCPCS: 64615; 99211; J0585 ==

== ENCOUNTER 2023-04-12 19:52 | Inpatient (IN) | payer MEDICAID, SELFPAY ==
--- NOTE | ~2023-04-12 | CT_ITS ---
EXAMINATION: CT ANGIOGRAM OF THE CHEST WITH AND WITHOUT CONTRAST (CT PULMONARY ANGIOGRAM FOR PE) CLINICAL INFORMATION: Reason for Exam hypoxic, tachycardic COMPARISON: Correlation made with 05/17/2021 CT of the abdomen. TECHNIQUE: Prior to contrast administration, noncontrast localization images were obtained. Subsequently, multidetector volumetric imaging was performed from the thoracic inlet to below the diaphragms following the administration of 85 mL Omnipaque 350 intravenous contrast. No contrast reaction reported Sagittal, coronal, and MIP oblique sagittal reformatted images were obtained on the CT workstation, uploaded to PACS, and reviewed. This CT examination was performed using dose optimization techniques as appropriate, variously including the following: *Automated exposure control *Adjustment of mA and/or kV according to patient size (this includes techniques or standardized protocols for targeted exams where dose is matched to indication/reason for exam; i.e. extremities or head) *Use of iterative reconstruction technique Total exam dose-length product 802 mGy-cm FINDINGS: QUALITY OF STUDY/CONTRAST BOLUS: Satisfactory. PULMONARY ARTERIES: No pulmonary emboli. THORACIC AORTA: No aneurysm. LUNG: No focal consolidation, nodules or masses. PLEURA: No pleural effusion or pneumothorax. MEDIASTINUM: Normal heart size. No pericardial effusion. No hilar or mediastinal lymphadenopathy. No evidence of septal bowing or right heart strain. CORONARY ARTERY CALCIFICATION: None visualized on this study. CHEST WALL/AXILLA: No axillary or internal mammary lymphadenopathy. OSSEOUS STRUCTURES: There is apparent healing posterior lateral left eighth rib fracture. Spinal stimulator device terminates at T7-T8. UPPER ABDOMEN: A small low-density left adrenal nodule is again seen. There is retained stool within the visualized colon. No reflux of contrast into the hepatic veins to suggest elevated right heart pressures. CT/CT angio chest PE protocol IMPRESSION: No evidence of pulmonary embolism. No active cardiopulmonary disease. VTE: negative
--- NOTE | ~2023-04-12 | CT_ITS ---
EXAMINATION: CT ABDOMEN AND PELVIS WITH CONTRAST CLINICAL INFORMATION: Weight loss and anemia. Rule out malignancy. COMPARISON: Previous CT of the abdomen and pelvis May 2021 and abdominal ultrasound June 2021. TECHNIQUE: Multidetector volumetric images were obtained from the superior aspect of the liver through the pubic symphysis following administration 85 mL of Omnipaque 350 intravenous contrast. Sagittal and coronal reformatted images were obtained on the technologist's workstation. Oral contrast: Yes This CT examination was performed using dose optimization techniques as appropriate, variously including the following: *Automated exposure control *Adjustment of mA and/or kV according to patient size (this includes techniques or standardized protocols for targeted exams where dose is matched to indication/reason for exam; i.e. extremities or head) *Use of iterative reconstruction technique DLP: 397 mGy-cm FINDINGS: LUNG BASES: Small bilateral pleural effusions. LIVER, GALLBLADDER, AND BILIARY TREE: Mild fatty infiltration of the liver. The gallbladder has been removed. No biliary duct dilatation. Small low-attenuation lesion in the right lobe of the liver, axial image 24 series 3, measuring 1 x 2 cm. This is not compatible with a simple cyst but is unchanged from old exams and therefore, probably benign. PANCREAS: Atrophic changes of the pancreas. SPLEEN: Unremarkable. ADRENAL GLANDS: 1 cm low-attenuation lesion exophytic to the left adrenal gland probably representing an adenoma or myelolipoma. This is stable from previous exam. Normal right adrenal gland. KIDNEYS AND URETERS: The kidneys are normal in size, shape, and attenuation. No hydronephrosis, hydroureter, or calculi seen. No perinephric stranding. BLADDER: Unremarkable. GASTROINTESTINAL TRACT: There are postsurgical changes to the stomach suggestive of gastric bypass. There are dilated loops of small bowel in the left upper quadrant and right mid abdomen. No dilated loops of bowel adjacent small-bowel anastomosis/suture line. There is small-bowel feces sign. Appearance is questionable for small-bowel obstruction versus stasis. There is mild nonspecific fat stranding seen in the small-bowel mesentery. There is trace ascites. There is a large amount of stool in the colon suggestive of constipation. There are questionable areas of wall thickening of the proximal transverse colon; for example, axial image 29-34 versus changes due to underdistention. The appendix is normal. ABDOMINAL WALL: No significant hernia is appreciated. Postsurgical changes to the anterior abdominal wall. LYMPH NODES: Normal. VASCULAR: Unremarkable. PELVIC VISCERA: Unremarkable. OSSEOUS STRUCTURES: Spinal stimulator in the thoracic spinal canal. Postsurgical changes with hardware at the L5-S1 disc space. CT/CT abdomen pelvis w IV con IMPRESSION: Constipation. Postsurgical changes from gastric bypass. 2 areas of dilated small bowel with small-bowel feces sign, 1 in the left upper quadrant and 1 in the right mid abdomen. Question small-bowel obstruction versus stasis. 2 areas of wall thickening of the proximal transverse colon. This may be artifactual due to underdistention. Correlation with colonoscopy findings recommended. Fleischner guidelines were followed.
--- NOTE | ~2023-04-12 | XR_ITS ---
EXAMINATION: XR CHEST CLINICAL INFORMATION: Respiratory failure. COMPARISON: 02/09/2018. TECHNIQUE: Frontal view of the chest was obtained. FINDINGS: The cardiomediastinal silhouette is normal. There is no focal lung consolidation or pleural effusion. There is a posterior lateral left eighth rib fracture of uncertain acuity. The bony structures and soft tissues are otherwise unremarkable. XR/XR chest 1V IMPRESSION: No active cardiopulmonary disease. Left eighth rib fracture of uncertain acuity and current significance.
--- NOTE | 2023-04-12 20:00 | PC.NURSE ---
Addendum entered by Blessing Alcantar 04/13/23 00:03: Pt more alert at this time, alert to self, and place. Pt attempting to make her needs known, pt's speech is slow, quiet, and mumbled. Warm blanket given. Original Note: Pt JOSEPH, from [facility], Pt appears to be unresponsive at this time, Pt was satting around 85% RA, then 88% NC, pt placed on CPAP by EMS, RT transferred to our CPAP machine. Lung sounds clear, even respirations, skin is very dry and intact. Pt arousable to name.
--- NOTE | 2023-04-12 20:07 | ECG_ITS ---
Test Reason : SHORTNESS OF BREATH Blood Pressure : / mmHG Vent. Rate : 114 BPM Atrial Rate : 000 BPM P-R Int : 000 ms QRS Dur : 068 ms QT Int : 458 ms P-R-T Axes : 000 007 065 degrees QTc Int : 631 ms Sinus tachycardia Poor data quality RSR' or QR pattern in V1 suggests right ventricular conduction delay Low voltage QRS Nonspecific T wave abnormality Abnormal ECG When compared with ECG of 03-JUL-2021 20:45, Vent. rate has increased BY 55 BPM Referred By: Lorna Santoyo Electronically Signed By:MILLI CHAVEZ MD
[2023-04-12 20:09] VITALS: PULSE 116; RESP 16; O2SAT 100
--- NOTE | 2023-04-12 20:11 | ED_ITS ---
HPI - General Adult General Chief complaint: Dyspnea Stated complaint: DIFF BREATHING Time Seen by Provider: 04/12/23 19:53 Source: EMS Mode of arrival: EMS Limitations: other History of Present Illness HPI narrative: Patient comes to the emergency room via EMS from short-term rehab. According to EMS, they are not sure why the patient is in short-term rehab. Earlier today, EMS was called because the patient was found to be hypoxic. When EMS arrived, EMS reports that they did not get a good report from the staff as they do know her very well. Seems that the patient declined fairly quickly over a few hours. Yesterday, the patient was awake, alert and oriented x3. When EMS arrived, patient was alert, awake, tachypneic, oxygen saturation in the mid 80s. They put her on a non-rebreather, oxygen saturation barely improved to the high 80s/low 90s, they switched her to CPAP. Patient arrived on CPAP, saturating 100%. However, according to EMS, the patient was using her phone prior to them leaving the facility in the ambulance, at this time, patient is barely awake, opens her eyes when her name is called. Related Data Home Medications Medication Instructions Recorded Confirmed cetirizine 10 mg capsule (Zyrtec) 10 mg PO DAILY 05/27/20 04/12/23 cholecalciferol (vitamin D3) 25 25 mcg PO DAILY 06/03/22 04/12/23 mcg (1,000 unit) tablet hydroxyzine HCl 25 mg tablet 25 mg PO BEDTIME 06/03/22 04/12/23 linaclotide 290 mcg capsule 290 mcg PO DAILY 06/03/22 04/12/23 (Linzess) magnesium oxide 400 mg (241.3 mg 400 mg PO DAILY 06/03/22 04/12/23 magnesium) tablet melatonin 5 mg tablet 5 mg PO BEDTIME 06/03/22 04/12/23 potassium chloride 10 mEq 10 meq PO DAILY 06/03/22 04/12/23 tablet,extended release riboflavin (vitamin B2) 100 mg 200 mg PO BEDTIME 06/03/22 04/12/23 tablet valacyclovir 1 gram tablet 1,000 mg PO DAILY 06/03/22 04/12/23 lurasidone 120 mg tablet (Latuda) 120 mg PO DAILY 07/09/22 04/12/23 ascorbic acid (vitamin C) 500 mg 500 mg PO DAILY 08/07/22 04/12/23 tablet (Vitamin C) polyethylene glycol 3350 17 17 g PO DAILY 09/25/22 04/12/23 gram/dose oral powder acetaminophen 325 mg capsule 650 mg PO Q6H PRN Pain 12/28/22 04/12/23 bisacodyl 10 mg rectal suppository 10 mg VT DAILY PRN Constipation 12/28/22 04/12/23 clonazepam 0.5 mg tablet 0.25 mg PO DAILY 12/28/22 04/12/23 dicyclomine 10 mg capsule 10 mg PO DAILY 12/28/22 04/12/23 levetiracetam 500 mg tablet 500 mg PO BID 12/28/22 04/12/23 lubiprostone 8 mcg capsule 8 mcg PO DAILY 12/28/22 04/12/23 pantoprazole 40 mg granules 40 mg PO DAILY 12/28/22 04/12/23 delayed-release for susp in packet sodium phosphates 19 gram-7 197 ml VT DAILY PRN Constipation 12/28/22 04/12/23 gram/118 mL enema (Fleet Enema) acetazolamide 250 mg tablet 250 mg PO TID 04/12/23 04/12/23 midodrine 5 mg tablet 10 mg PO TID 04/12/23 04/12/23 nortriptyline 25 mg capsule 25 mg PO BID 04/12/23 04/12/23 ondansetron HCl 4 mg tablet 4 mg PO Q8H 04/12/23 04/12/23 spironolactone 25 mg tablet 25 mg PO DAILY 04/12/23 04/12/23 Previous Rx's Medication Instructions Recorded blood pressure monitor #1 ea 03/04/22 topiramate 100 mg tablet 100 mg PO BEDTIME #28 tabs 09/29/22 Allergies Allergy/AdvReac Type Severity Reaction Status Date / Time baclofen Allergy Intermediate Swelling Verified 12/28/22 12:34 amoxicillin Allergy Mild yeast Verified 12/28/22 12:34 infection gabapentin AdvReac Mild Swelling Verified 12/28/22 12:34 Meloxicam Allergy Unknown swelling Uncoded 12/28/22 12:34 Review of Systems 2 Review of Systems: Yes Unobtainable due to mental condition PMFSH Past Medical History Medical History Internal hernia Excess skin of upper extremity Lipoma History of lipoma Sleep apnea with use of continuous positive airway pressure (CPAP) Hypercholesterolemia Type 2 diabetes mellitus Lymphedema Migraines Anxiety Back pain Arthritis Carpal tunnel syndrome H/O nephrolithotomy with removal of calculi Surgical History History of gastric surgery Hx of colonoscopy Hx of lumpectomy H/O cervical discectomy History of Zane-en-Y gastric bypass S/P carpal tunnel release Hx of section S/P knee replacement History of back surgery Family History Family History Father No problems noted. Mother Arthritis Brother No problems noted. Brother No problems noted. Sister No problems noted. Sister No problems noted. Sister No problems noted. Sister No problems noted. Son No problems noted. Daughter No problems noted. Social History Social History Household Members: None Alcohol intake: current Alcohol intake frequency: holidays/special occasions only Patient Tobacco Use Status: Former Tobacco user Quit Date: 2017 Advance Directives: No Advance Directives Information Provided: No service: No Current occupational status: disabled Physical Exam ED Vital Signs: Vital Signs - 24 hr 04/12/23 20:09 04/12/23 20:33 04/12/23 21:20 Temperature 97.5 F Pulse Rate 113 H Respiratory Rate 16 21 H Blood Pressure 105/63 Pulse Oximetry 100 Oxygen Delivery Method CPAP 04/12/23 22:20 Temperature Pulse Rate 115 H Respiratory Rate 18 Blood Pressure 105/79 Pulse Oximetry 100 Oxygen Delivery Method Room Air BMI result Body Mass Index 18.7 Const Other: Appearance: Ill-appearing, barely awake, opens her eyes to voice command, cachectic Eyes: Pupils equal, round and reactive to light. ENT: Pharynx normal. Neck: Normal inspection. Neck supple. No lymph nodes noted. No crepitus CVS: Normal heart rate and rhythm. Pulses normal. Normal S1 and S2 Respiratory: On BiPAP, no rales or crackles or wheezing Abdomen: Soft and nontender. No rigidity. No distention. Skin: Skin cool and dry. Normal skin color. Normal skin turgor. Extremities: No lower extremity edema. No Lacerations. No Rash Neuro: Minimally responsive Psych: calm Course Course Course Narrative: -patient is now on our CPAP. PEEP 8, 40% saturating 100% -all of the patient's labs are pending -patient's mentation is improving slowly, patient is out more awake. All labs pending, remains on CPAP -it is unclear why patient was hypoxic earlier today, patient has clear lung sounds, BNP normal, my interpretation of chest x-ray not show any pulmonary edema or pneumonia. Given patient's symptoms, I will go ahead and order a CT scan to rule out pulmonary embolism Medical Decision Making Medical Decision Making [facility] Narrative: -radiology interpretation of x-ray: Left 8th rib fracture of uncertain acuity. CT scan for pulmonary embolism pending -patient tested negative for COVID and influenza, my interpretation of labs: Normal white blood cell count, normal lactic acid. Patient seems to have metabolic acidosis. Urinalysis shows a small amount of leukocyte esterase. However, patient has no urinary symptoms. -I discussed the patient with Dr. Myers, patient will be admitted, pending CTA results -at this time, there is no source of infection, normal blood pressure, no fever, sepsis or infection is not suspected, patient has not received any antibiotics. -patient was successfully weaned off CPAP, now on room air, saturating 100%. -patient is stable at this time, blood pressure 105/79, heart rate 115 -patient does not have CHF, clear lungs, normal chest x-ray and BNP normal. Patient is in stride, receiving 1 L of normal saline. -CT scan for pulmonary embolism results pending, sign-out given to Dr. Sage Differential Diagnosis Differential Diagnoses: The differential diagnosis associated with the presentation includes (Pneumonia, CHF, pulmonary embolism) Admission/Observation Consideration of admission/observation: Escalation of care including admission/observation considered Consult Healthcare Provider Management of the patient was discussed with: Hospitalist Lab Data MDM Lab Attestation statement: I reviewed the patient's lab results. 04/12/23 21:03 04/12/23 20:54 Labs: Lab Results 04/12/23 04/12/23 04/12/23 Range/Units 20:04 20:54 21:03 WBC 7.0 (4.8-10.8) X10*3/uL RBC 3.39 L (4.20-5.50) X10*6/uL Hgb 10.2 L (12.0-16.0) g/dl Hct 29.3 L (37.0-47.0) % MCV 86.4 (80.0-98.0) fL MCH 30.1 (27.0-33.0) pg MCHC 34.8 (31.0-35.0) g/dl RDW 17.7 H (11.0-16.0) % Plt Count 151 L (160-400) X10*3/uL MPV 10.0 (9.4-12.3) fL Immature Gran % (Auto) 0.4 (0.0-0.4) % Neut % (Auto) 63.8 (45-73) % Lymph % (Auto) 31.0 (20-40) % [place] % (Auto) 4.6 (2-11) % Eos % (Auto) 0.1 (0-4) % Baso % (Auto) 0.1 (0-2) % Lymph # (Auto) 2.2 (1.2-4.9) X10*3/uL [place] # (Auto) 0.3 (0.1-1.2) X10*3/uL Eos # (Auto) 0.0 (0.0-0.4) X10*3/uL Baso # (Auto) 0.0 (0.0-0.2) X10*3/uL Abs Immat Gran (auto) 0.03 (0.00-0.03) X10*3/uL Absolute Neuts (auto) 4.4 (2.0-8.3) x10*3/uL Absolute Nucleated RBC 0.000 (0.0-0.012) X10*3/uL Nucleated RBC % (auto) 0.0 (0.0-0.2) /100WBC PT 14.7 H (11.1-13.3) SEC INR 1.2 H (0.9-1.1) VBG pH (7.32-7.43) VBG pCO2 mmHg VBG pO2 mmHg VBG HCO3 (22-26) mmol/L VBG O2 Saturation % VBG Base Excess mmol/L Sodium 135 (135-145) mmol/L Potassium 4.3 (3.3-5.1) mmol/L Chloride 114 H (96-108) mmol/L Carbon Dioxide 13 L (22-29) mmol/L Anion Gap 12 (12-20) BUN 21 H (9-16) mg/dL Creatinine 0.95 (0.5-1.4) mg/dL Estim Creat Clear Calc 49.0 Estimated GFR > 60 POC Glucose 73 (60-115) mg/dL Random Glucose 86 (60-115) mg/dL Lactic Acid 0.6 (0.5-2.0) mmol/L Calcium 7.5 L D (8.4-10.2) mg/dL Magnesium 1.9 (1.6-2.6) mg/dL Total Bilirubin 0.5 (0.0-1.0) mg/dL Direct Bilirubin 0.2 (0.0-0.5) mg/dL AST 25 (5-31) U/L ALT 20 (0-31) U/L Alkaline Phosphatase 179 H (39-117) U/L Troponin I High Sens 4.6 (<3.5-17.0) ng/L B-Natriuretic Peptide (<100) pg/mL Total Protein 5.0 L (6.5-8.0) g/dL Albumin 2.0 L (3.5-5.0) g/dL Urine Color Urine Appearance Urine pH (5.0-9.0) Ur Specific [place] (1.005-1.025) Urine Protein (Neg-Trace) mg/dL Urine Glucose (UA) (Negative) mg/dL Urine Ketones (Negative) mg/dL Urine Blood (Negative) Urine Nitrite (Negative) Ur Leukocyte Esterase (Negative) Urine RBC (0-2) /HPF Urine WBC (0-5) /HPF Ur Squamous Epith Cells (0-2) /HPF Urine Bacteria (None Seen) Hyaline Casts (0-2) /LPF Urine Opiates Screen (Not Detect) Urine Fentanyl Screen (Not Detect) Ur Barbiturates Screen (Not Detect) Ur Phencyclidine Scrn (Not Detect) Ur Amphetamines Screen (Not Detect) U Benzodiazepines Scrn (Not Detect) Urine Cocaine Screen (Not Detect) U Marijuana (THC) Screen (Not Detect) COVID-19 (KELLY) (Negative) COVID-19 Clin Com Influenza Type A (YUSEF) (Negative) Influenza Type B (YUSEF) (Negative) Influenza A & B Note 10/30/23 10/30/23 10/30/23 Range/Units 21:04 21:10 21:22 WBC (4.8-10.8) X10*3/uL RBC (4.20-5.50) X10*6/uL Hgb (12.0-16.0) g/dl Hct (37.0-47.0) % MCV (80.0-98.0) fL MCH (27.0-33.0) pg MCHC (31.0-35.0) g/dl RDW (11.0-16.0) % Plt Count (160-400) X10*3/uL MPV (9.4-12.3) fL Immature Gran % (Auto) (0.0-0.4) % Neut % (Auto) (45-73) % Lymph % (Auto) (20-40) % [place] % (Auto) (2-11) % Eos % (Auto) (0-4) % Baso % (Auto) (0-2) % Lymph # (Auto) (1.2-4.9) X10*3/uL [place] # (Auto) (0.1-1.2) X10*3/uL Eos # (Auto) (0.0-0.4) X10*3/uL Baso # (Auto) (0.0-0.2) X10*3/uL Abs Immat Gran (auto) (0.00-0.03) X10*3/uL Absolute Neuts (auto) (2.0-8.3) x10*3/uL Absolute Nucleated RBC (0.0-0.012) X10*3/uL Nucleated RBC % (auto) (0.0-0.2) /100WBC PT (11.1-13.3) SEC INR (0.9-1.1) VBG pH 7.31 L (7.32-7.43) VBG pCO2 27 mmHg VBG pO2 67 mmHg VBG HCO3 14 L (22-26) mmol/L VBG O2 Saturation 88.0 % VBG Base Excess -9.9 mmol/L Sodium (135-145) mmol/L Potassium (3.3-5.1) mmol/L Chloride (96-108) mmol/L Carbon Dioxide (22-29) mmol/L Anion Gap (12-20) BUN (9-16) mg/dL Creatinine (0.5-1.4) mg/dL Estim Creat Clear Calc Estimated GFR POC Glucose (60-115) mg/dL Random Glucose (60-115) mg/dL Lactic Acid (0.5-2.0) mmol/L Calcium (8.4-10.2) mg/dL Magnesium (1.6-2.6) mg/dL Total Bilirubin (0.0-1.0) mg/dL Direct Bilirubin (0.0-0.5) mg/dL AST (5-31) U/L ALT (0-31) U/L Alkaline Phosphatase (39-117) U/L Troponin I High Sens (<3.5-17.0) ng/L B-Natriuretic Peptide 20 (<100) pg/mL Total Protein (6.5-8.0) g/dL Albumin (3.5-5.0) g/dL Urine Color Urine Appearance Urine pH (5.0-9.0) Ur Specific [place] (1.005-1.025) Urine Protein (Neg-Trace) mg/dL Urine Glucose (UA) (Negative) mg/dL Urine Ketones (Negative) mg/dL Urine Blood (Negative) Urine Nitrite (Negative) Ur Leukocyte Esterase (Negative) Urine RBC (0-2) /HPF Urine WBC (0-5) /HPF Ur Squamous Epith Cells (0-2) /HPF Urine Bacteria (None Seen) Hyaline Casts (0-2) /LPF Urine Opiates Screen (Not Detect) Urine Fentanyl Screen (Not Detect) Ur Barbiturates Screen (Not Detect) Ur Phencyclidine Scrn (Not Detect) Ur Amphetamines Screen (Not Detect) U Benzodiazepines Scrn (Not Detect) Urine Cocaine Screen (Not Detect) U Marijuana (THC) Screen (Not Detect) COVID-19 (KELLY) Negative (Negative) COVID-19 Clin Com See Note Influenza Type A (YUSEF) Negative (Negative) Influenza Type B (YUSEF) Negative (Negative) Influenza A & B Note See Note 04/12/23 Range/Units 21:36 WBC (4.8-10.8) X10*3/uL RBC (4.20-5.50) X10*6/uL Hgb (12.0-16.0) g/dl Hct (37.0-47.0) % MCV (80.0-98.0) fL MCH (27.0-33.0) pg MCHC (31.0-35.0) g/dl RDW (11.0-16.0) % Plt Count (160-400) X10*3/uL MPV (9.4-12.3) fL Immature Gran % (Auto) (0.0-0.4) % Neut % (Auto) (45-73) % Lymph % (Auto) (20-40) % [place] % (Auto) (2-11) % Eos % (Auto) (0-4) % Baso % (Auto) (0-2) % Lymph # (Auto) (1.2-4.9) X10*3/uL [place] # (Auto) (0.1-1.2) X10*3/uL Eos # (Auto) (0.0-0.4) X10*3/uL Baso # (Auto) (0.0-0.2) X10*3/uL Abs Immat Gran (auto) (0.00-0.03) X10*3/uL Absolute Neuts (auto) (2.0-8.3) x10*3/uL Absolute Nucleated RBC (0.0-0.012) X10*3/uL Nucleated RBC % (auto) (0.0-0.2) /100WBC PT (11.1-13.3) SEC INR (0.9-1.1) VBG pH (7.32-7.43) VBG pCO2 mmHg VBG pO2 mmHg VBG HCO3 (22-26) mmol/L VBG O2 Saturation % VBG Base Excess mmol/L Sodium (135-145) mmol/L Potassium (3.3-5.1) mmol/L Chloride (96-108) mmol/L Carbon Dioxide (22-29) mmol/L Anion Gap (12-20) BUN (9-16) mg/dL Creatinine (0.5-1.4) mg/dL Estim Creat Clear Calc Estimated GFR POC Glucose (60-115) mg/dL Random Glucose (60-115) mg/dL Lactic Acid (0.5-2.0) mmol/L Calcium (8.4-10.2) mg/dL Magnesium (1.6-2.6) mg/dL Total Bilirubin (0.0-1.0) mg/dL Direct Bilirubin (0.0-0.5) mg/dL AST (5-31) U/L ALT (0-31) U/L Alkaline Phosphatase (39-117) U/L Troponin I High Sens (<3.5-17.0) ng/L B-Natriuretic Peptide (<100) pg/mL Total Protein (6.5-8.0) g/dL Albumin (3.5-5.0) g/dL Urine Color Dark Yellow Urine Appearance Cloudy Urine pH 5.5 (5.0-9.0) Ur Specific [place] 1.020 (1.005-1.025) Urine Protein Negative (Neg-Trace) mg/dL Urine Glucose (UA) Negative (Negative) mg/dL Urine Ketones Trace (Negative) mg/dL Urine Blood Negative (Negative) Urine Nitrite Negative (Negative) Ur Leukocyte Esterase Small (1+) H (Negative) Urine RBC 3-5 H (0-2) /HPF Urine WBC 0-5 (0-5) /HPF Ur Squamous Epith Cells 6-10 (0-2) /HPF Urine Bacteria 4+ (None Seen) Hyaline Casts 11-20 (0-2) /LPF Urine Opiates Screen Not Detected (Not Detect) Urine Fentanyl Screen Not Detected (Not Detect) Ur Barbiturates Screen Not Detected (Not Detect) Ur Phencyclidine Scrn Not Detected (Not Detect) Ur Amphetamines Screen Not Detected (Not Detect) U Benzodiazepines Scrn Not Detected (Not Detect) Urine Cocaine Screen Not Detected (Not Detect) U Marijuana (THC) Screen Not Detected (Not Detect) COVID-19 (KELLY) (Negative) COVID-19 Clin Com Influenza Type A (YUSEF) (Negative) Influenza Type B (YUSEF) (Negative) Influenza A & B Note Independent Interpretation I performed an independent interpretation of an: EKG (My interpretation of EKG: Sinus rhythm, heart rate 114, no ST segment depression or elevation, no T-wave inversion, poor quality due to patient's shaking.) and Plain X-Ray Radiology Impression Discussion of test interpretation with radiology: I have reviewed the radiologist's reading. Radiologist Impression: FINDINGS: The cardiomediastinal silhouette is normal. There is no focal lung consolidation or pleural effusion. There is a posterior lateral left eighth rib fracture of uncertain acuity. The bony structures and soft tissues are otherwise unremarkable. XR/XR chest 1V IMPRESSION: No active cardiopulmonary disease. Left eighth rib fracture of uncertain acuity and current significance. Critical Care Time Critical Care Time Critical Care Time: Yes Total Critical Care Time: 90 Attestation: I have personally provided critical care time. Time includes review of lab data, radiology results, discussion with consultants, and monitoring for potential decompensation. Intervention performed as documented. Discharge Plan Discharge Clinical Impression: Acute dyspnea, Acute hypoxemic respiratory failure Patient Disposition: Admitted As Inpatient Prescriptions: No Action Latuda 120 mg tablet 120 mg PO DAILY Rx Instructions: must administer with food (at least 350 calories) topiramate 100 mg tablet 100 mg PO BEDTIME Qty: 28 4RF potassium chloride 10 mEq tablet extended release 10 meq PO DAILY ondansetron HCl [Zofran] 4 mg Tablet 4 mg PO Q8H midodrine 5 mg tablet 10 mg PO TID spironolactone 25 mg Tablet 25 mg PO DAILY nortriptyline 25 mg Capsule 25 mg PO BID acetazolamide 250 mg tablet 250 mg PO TID Zyrtec 10 mg capsule 10 mg PO DAILY valacyclovir 1 gram tablet 1,000 mg PO DAILY cholecalciferol (vitamin D3) 25 mcg (1,000 unit) tablet 25 mcg PO DAILY Linzess 290 mcg capsule 290 mcg PO DAILY hydroxyzine HCl 25 mg tablet 25 mg PO BEDTIME riboflavin (vitamin B2) 100 mg tablet 200 mg PO BEDTIME melatonin 5 mg tablet 5 mg PO BEDTIME magnesium oxide 400 mg (241.3 mg magnesium) tablet 400 mg PO DAILY (DME) blood pressure monitor Kit See Rx Instructions .Route Qty: 1 0RF Rx Instructions: Check BP bid and prn lightheadedness ascorbic acid (vitamin C) [Vitamin C] 500 mg tablet 500 mg PO DAILY polyethylene glycol 3350 17 gram/dose powder 17 g PO DAILY acetaminophen 325 mg capsule 650 mg PO Q6H PRN (Reason: Pain) bisacodyl 10 mg suppository 10 mg VT DAILY PRN (Reason: Constipation) clonazepam 0.5 mg tablet 0.25 mg PO DAILY dicyclomine 10 mg capsule 10 mg PO DAILY Fleet Enema 19-7 gram/118 mL enema 197 ml VT DAILY PRN (Reason: Constipation) levetiracetam 500 mg tablet 500 mg PO BID lubiprostone 8 mcg capsule 8 mcg PO DAILY pantoprazole [address] for susp in packet 40 mg PO DAILY
[2023-04-12 20:18] LABS: Glucose, Whole Blood 73 mg/dL (60-115)
[2023-04-12 20:33] VITALS: BP 102/52; BP 105/63; PULSE 110; PULSE 113; RESP 21; O2SAT 100; O2SAT 91; BMI 20.9
--- NOTE | 2023-04-12 20:57 | PHA.MEDREC ---
Pharmacy Consult ? Medication Reconciliation Pharmacy has completed the medication reconciliation. Patient came from [facility] with medication list. Luann Rivas, BrantD
[2023-04-12 21:07] VITALS: BMI 18.7
--- NOTE | 2023-04-12 21:08 | PC.NURSE ---
Addendum entered by Avelina Felix 04/12/23 21:12: IJ to right side. Original Note: Pt very difficult stick, multiple unsuccessful attempts, EMS line not functional. Dr. Santoyo notified. Ultrasound guided 18G IJ placed by Dr. Santoyo. Labs collected and sent to lab.
[2023-04-12 21:12] LABS: MANUAL DIFF FLAG NO
[2023-04-12 21:13] LABS: Basophils Percent Auto 0.1 % (0-2); Eosinophils Percent Auto 0.1 % (0-4); Hematocrit 29.3 % (37.0-47.0); Hemoglobin 10.2 g/dl (12.0-16.0); Imm Gran Abs Auto 0.03 X10*3/uL (0.00-0.03); Imm Gran Pct Auto 0.4 % (0.0-0.4); Lymphocytes Absolute Auto 2.2 X10*3/uL (1.2-4.9); Mean Corpuscular HGB Conc 34.8 g/dl (31.0-35.0); Mean Corpuscular Hemoglobin 30.1 pg (27.0-33.0); Mean Corpuscular Volume 86.4 fL (80.0-98.0); Monocytes Absolute Auto 0.3 X10*3/uL (0.1-1.2); Monocytes Percent Auto 4.6 % (2-11); Neutrophils Absolute Auto 4.4 x10*3/uL (2.0-8.3); Neutrophils Percent Auto 63.8 % (45-73); Platelet Count 151 X10*3/uL (160-400); Red Blood Count 3.39 X10*6/uL (4.20-5.50); Red Cell Distribution Width 17.7 % (11.0-16.0)
[2023-04-12 21:15] LABS: Alanine Aminotransferase 20 U/L (0-31); Alkaline Phosphatase 179 U/L (39-117); Anion Gap 12 (12-20); Aspartate Amino Transferase 25 U/L (5-31); Bilirubin Direct 0.2 mg/dL (0.0-0.5); Bilirubin Total 0.5 mg/dL (0.0-1.0); Blood Urea Nitrogen 21 mg/dL (9-16); Calcium 7.5 mg/dL (8.4-10.2); Carbon Dioxide 13 mmol/L (22-29); Chloride 114 mmol/L (96-108); Estimated Glomerular Filt Rate > 60; Glucose Random 86 mg/dL (60-115); Magnesium 1.9 mg/dL (1.6-2.6); Potassium 4.3 mmol/L (3.3-5.1); Sodium 135 mmol/L (135-145)
[2023-04-12 21:16] LABS: VBG Base Excess -9.9 mmol/L; VBG HCO3 14 mmol/L (22-26); VBG pCO2 27 mmHg; VBG pH 7.31 (7.32-7.43); VBG pO2 67 mmHg
[2023-04-12 21:17] LABS: Venous Blood Gas Refer to POC result
[2023-04-12 21:20] VITALS: TEMP 36.4
[2023-04-12 21:21] LABS: Troponin-I High Sensitivity 4.6 ng/L (<3.5-17.0)
[2023-04-12 21:21] LABS: Lactic Acid 0.6 mmol/L (0.5-2.0)
[2023-04-12 21:22] LABS: INTERNATIONAL NORM RATIO 1.2 (0.9-1.1); Prothrombin Time 14.7 SEC (11.1-13.3)
--- NOTE | 2023-04-12 21:26 | PC.NURSE ---
Pt bladder scan result >385 mL. Plan to straight cath.
[2023-04-12 21:35] LABS: B Type Natriuretic Peptide 20 pg/mL (<100)
--- NOTE | 2023-04-12 21:35 | PC.NURSE ---
pt straight cath for urine sample. 200 mLs obtained, Urine is dark yellow, Pt tolerated well. Urine sample collected and sent to lab.
[2023-04-12 21:44] LABS: Appearance Urine Cloudy; Color Urine Dark Yellow; Glucose Urine UA Negative (Negative); Leukocyte Esterase Urine Small (1+) (Negative); Nitrite Urine Negative (Negative); PH 5.5 (5.0-9.0); UMIC TRIGGER UACC YES; Urine Blood Negative (Negative); Urine Ketones Trace mg/dL (Negative); Urine Protein Negative (Neg-Trace)
[2023-04-12 21:48] LABS: IDNOW Serial# 08D9AD1C; Influenza A Negative (Negative); Influenza B2 Negative (Negative)
[2023-04-12 21:50] LABS: Amphetamine Screen Urine Not Detected (Not Detect); Barbiturates, Urine Not Detected (Not Detect); Benzodiazepines Screen Urine Not Detected (Not Detect); Cannabinoid Screen Urine Not Detected (Not Detect); Cocaine Screen Urine Not Detected (Not Detect); Fentanyl, urine Not Detected (Not Detect); Opiate Screen Urine Not Detected (Not Detect); Phencyclidine Screen Urine Not Detected (Not Detect)
[2023-04-12 21:59] LABS: COVID-19 Test Negative (Negative); IDNOW Serial# BCCEAD1C
[2023-04-12 22:12] LABS: Bacteria Urine 4+ (None Seen); UACC Culture Trigger YES; WBC Urine 0-5 /HPF (0-5)
--- NOTE | 2023-04-12 22:15 | PC.NURSE ---
Addendum entered by Blessing Alcantar 04/12/23 22:29: Pt transported to CT, pt currently on RA satting at 100% Original Note: 20G IV placed to left upper inner arm with ultrasound guided by provider Nel Huerta. Respiratory therapy at bedside trialling Pt off C-PAP. Plan is for Pt to get CT done.
[2023-04-12 22:20] VITALS: BP 105/79; PULSE 115; RESP 18; O2SAT 100
[2023-04-12] MEDS: iohexoL 350 MG/ML 100 ML INFUS..BTL 65 ML IV (22:40)
[2023-04-12] MEDS: 0.9 % Sodium Chloride 1,000 ML 999 ML IVCONT (23:02)
--- NOTE | 2023-04-12 23:50 | PC.NURSE ---
Dirk RUIZ, from [facility], Pt appears to be unresponsive at this time, pt placed on CPAP by EMS. Pt was satting around 85% RA, then 88% NC, she was then placed on CPAP by RT. Lung sounds clear, even respirations, skin is very dry and intact,
--- NOTE | 2023-04-12 23:58 | PC.NURSE ---
Pt JOSEPH, from [facility], Pt appears to be unresponsive at this time, Pt was satting around 85% RA, then 88% NC, pt placed on CPAP by EMS, RT transferred to our CPAP machine. Lung sounds clear, even respirations, skin is very dry and intact. Pt arousable to name.
[2023-04-13] VITALS (8 sets, daily range): BP systolic 93–115; BP diastolic 56–75; PULSE 102–119; RESP 12–19; TEMP 36.2–36.6; O2SAT 95–100
--- NOTE | 2023-04-13 01:43 | P.HPHOSP_ITS ---
History of Present Illness Date of Service: 04/13/23 Chief Complaint: AMS, Hypoxia a 56-year-old female with past medical history of gastrectomy, distal absorption, history of paroxysmal as surgery, small-bowel obstruction, hyperlipidemia anxiety depression, diabetes and migraine headaches, TRUNG, among others who presents to the hospital with Altered mentation and hypoxia. The patient was found altered and difficult to arouse at STR with reported hypoxia to low 80s. placed her on NRB but did not reach 90s so they had to start CPAP and bring her to the hospital. her AMS improved as O2 level was back to 100% on CPAP. The patient was unable to provide much of history as she was still lethargic at time of presentation but she couldnt remember how did she end up in the hospital. In ED, CXR, CTA chest were both negative for any acute findings. PAtient looks cachetic and report losing weight over the last few months with decrease PO intake. Blood work showimg low Albumin and evidence of metabolic acidosis with respiratory alkalosis. Admitted for further evaluation and treatment. Review of Systems 2 Review of Systems: Yes Unobtainable due to mental status PMFSH Medical History Internal hernia Excess skin of upper extremity Lipoma History of lipoma Sleep apnea with use of continuous positive airway pressure (CPAP) Hypercholesterolemia Type 2 diabetes mellitus Lymphedema Migraines Anxiety Back pain Arthritis Carpal tunnel syndrome H/O nephrolithotomy with removal of calculi Family History Father No problems noted. Mother Arthritis Brother No problems noted. Brother No problems noted. Sister No problems noted. Sister No problems noted. Sister No problems noted. Sister No problems noted. Son No problems noted. Daughter No problems noted. Surgical History History of gastric surgery Hx of colonoscopy Hx of lumpectomy H/O cervical discectomy History of Zane-en-Y gastric bypass S/P carpal tunnel release Hx of section S/P knee replacement History of back surgery Social History Household Members: None Alcohol intake: former Patient Tobacco Use Status: Former Tobacco user Quit Date: 2017 Smoked in Last 30 Days: No Use of substances other than those prescribed or required for medical reasons: No Advance Directives: No Advance Directives Information Provided: No Patient : No service: No Current occupational status: disabled Meds Allergies Allergy/AdvReac Type Severity Reaction Status Date / Time baclofen Allergy Intermediate Swelling Verified 12/28/22 12:34 amoxicillin Allergy Mild yeast Verified 12/28/22 12:34 infection gabapentin AdvReac Mild Swelling Verified 12/28/22 12:34 Meloxicam Allergy Unknown swelling Uncoded 12/28/22 12:34 Active Medications: Current Medications Acetaminophen (Acetaminophen 325 Mg Tablet) 650 mg PO Q6H PRN PRN Reason: Pain, Mild (Pain Scale 1-3) Acetazolamide (Acetazolamide 250 Mg Tablet) 250 mg PO TID [facility] Ascorbic Acid (Ascorbic Acid 500 Mg Tablet) 500 mg PO DAILY [facility] Bisacodyl (Bisacodyl 10 Mg Supp.Rect) 10 mg IN DAILY PRN PRN Reason: Constipation Dicyclomine HCl (Dicyclomine Hcl 10 Mg Capsule) 10 mg PO DAILY [facility] Enoxaparin Sodium (Enoxaparin Sodium 40 Mg/0.4 Ml Syringe) 40 mg SUBCUT Q24H [facility] Levetiracetam (Levetiracetam 250 Mg Tablet) 250 mg PO BID [facility] Magnesium Oxide (Magnesium Oxide 400 Mg Tablet) 400 mg PO DAILY [facility] Midodrine (Midodrine Hcl 10 Mg Tablet) 10 mg PO TID [facility] Non-Formulary Medication (Pantoprazole) 40 mg PO DAILY [facility] Nortriptyline HCl (Nortriptyline Hcl 25 Mg Capsule) 25 mg PO BID [facility] Ondansetron HCl (Ondansetron Hcl 4 Mg/2 Ml Vial) 4 mg IVPUSH Q8H PRN PRN Reason: Nausea and Vomiting Polyethylene Glycol (Polyethylene Glycol 3350 17 Gm Powd.Pack) 17 gm PO DAILY [facility] Sodium Biphosphate/Sodium Phosphate (Sodium Phosphate,Benson-Dibasic 133 Ml Enema) 197 ml IN DAILY PRN PRN Reason: Constipation Sodium Chloride (0.9 % Sodium Chloride Flush 3 Ml Syringe) 3 ml IVFLUSH QSHIFT [facility] Spironolactone (Spironolactone 25 Mg Tablet) 25 mg PO DAILY [facility]; Protocol Topiramate (Topiramate 100 Mg Tablet) 100 mg PO BEDTIME LILI Valacyclovir HCl (Valacyclovir Hcl 1,000 Mg Tablet) 1,000 mg PO DAILY [facility] Vitamin D (Cholecalciferol (Vitamin D3) 25 Mcg Tablet) 25 mcg PO DAILY [facility] Home Medications Medication Instructions Recorded Confirmed Last Taken Type cetirizine 10 mg capsule (Zyrtec) 10 mg PO DAILY 05/27/20 04/12/23 Unknown History cholecalciferol (vitamin D3) 25 25 mcg PO DAILY 06/03/22 04/12/23 Unknown History mcg (1,000 unit) tablet hydroxyzine HCl 25 mg tablet 25 mg PO BEDTIME 06/03/22 04/12/23 Unknown History linaclotide 290 mcg capsule 290 mcg PO DAILY 06/03/22 04/12/23 Unknown History (Linzess) magnesium oxide 400 mg (241.3 mg 400 mg PO DAILY 06/03/22 04/12/23 Unknown History magnesium) tablet melatonin 5 mg tablet 5 mg PO BEDTIME 06/03/22 04/12/23 Unknown History potassium chloride 10 mEq 10 meq PO DAILY 06/03/22 04/12/23 Unknown History tablet,extended release riboflavin (vitamin B2) 100 mg 200 mg PO BEDTIME 06/03/22 04/12/23 Unknown History tablet valacyclovir 1 gram tablet 1,000 mg PO DAILY 06/03/22 04/12/23 Unknown History lurasidone 120 mg tablet (Latuda) 120 mg PO DAILY 07/09/22 04/12/23 Unknown History ascorbic acid (vitamin C) 500 mg 500 mg PO DAILY 08/07/22 04/12/23 Unknown History tablet (Vitamin C) polyethylene glycol 3350 17 17 g PO DAILY 09/25/22 04/12/23 Unknown History gram/dose oral powder acetaminophen 325 mg capsule 650 mg PO Q6H PRN Pain 12/28/22 04/12/23 Unknown History bisacodyl 10 mg rectal suppository 10 mg IN DAILY PRN Constipation 12/28/22 04/12/23 Unknown History clonazepam 0.5 mg tablet 0.25 mg PO DAILY 12/28/22 04/12/23 Unknown History dicyclomine 10 mg capsule 10 mg PO DAILY 12/28/22 04/12/23 Unknown History levetiracetam 500 mg tablet 500 mg PO BID 12/28/22 04/12/23 Unknown History lubiprostone 8 mcg capsule 8 mcg PO DAILY 12/28/22 04/12/23 Unknown History pantoprazole 40 mg granules 40 mg PO DAILY 12/28/22 04/12/23 Unknown History delayed-release for susp in packet sodium phosphates 19 gram-7 197 ml IN DAILY PRN Constipation 12/28/22 04/12/23 Unknown History gram/118 mL enema (Fleet Enema) acetazolamide 250 mg tablet 250 mg PO TID 04/12/23 04/12/23 Unknown History midodrine 5 mg tablet 10 mg PO TID 04/12/23 04/12/23 Unknown History nortriptyline 25 mg capsule 25 mg PO BID 04/12/23 04/12/23 Unknown History ondansetron HCl 4 mg tablet 4 mg PO Q8H 04/12/23 04/12/23 Unknown History spironolactone 25 mg tablet 25 mg PO DAILY 04/12/23 04/12/23 Unknown History Physical Exam 2 Vital Signs and Narrative: Vital Signs: Last Vital Signs Temp 97.5 F 04/12/23 21:20 Pulse 102 H 04/13/23 00:20 Resp 12 04/13/23 00:20 BP 110/75 04/13/23 00:42 Pulse Ox 100 04/13/23 00:20 O2 Del Method Room Air 04/13/23 00:20 BMI result Body Mass Index 18.7 Const: Other: Constitutional : Awake with stimualation, cachetic, weak and lethargic Neck : Normal inspection, Supple Cardiovascular : RRR, no JVP, no lower extremity edema Respiratory : good bilateral air entry, no crackles, wheezes or rhonchi Gastrointestinal: soft, lax, Normal bowel sounds, Non tender Skin : Warm, Dry Neurological : Alert & oriented to place and self, No focal deficit but overall weakness Results Labs 04/12/23 21:03 04/12/23 20:54 Labs: Laboratory Results - last 24 hr 04/12/23 04/12/23 04/12/23 20:04 20:54 21:03 MCV 86.4 MCH 30.1 MCHC 34.8 RDW 17.7 H Plt Count 151 L MPV 10.0 Immature Gran % (Auto) 0.4 Neut % (Auto) 63.8 Lymph % (Auto) 31.0 Benson % (Auto) 4.6 Eos % (Auto) 0.1 Baso % (Auto) 0.1 Lymph # (Auto) 2.2 Benson # (Auto) 0.3 Eos # (Auto) 0.0 Baso # (Auto) 0.0 Abs Immat Gran (auto) 0.03 Absolute Neuts (auto) 4.4 Absolute Nucleated RBC 0.000 Nucleated RBC % (auto) 0.0 PT 14.7 H INR 1.2 H VBG pH VBG pCO2 VBG pO2 VBG HCO3 VBG O2 Saturation VBG Base Excess Anion Gap 12 Estim Creat Clear Calc 49.0 Estimated GFR > 60 POC Glucose 73 Random Glucose 86 Lactic Acid 0.6 Calcium 7.5 L D Magnesium 1.9 Total Bilirubin 0.5 Direct Bilirubin 0.2 AST 25 ALT 20 Alkaline Phosphatase 179 H B-Natriuretic Peptide Total Protein 5.0 L Albumin 2.0 L Urine Color Urine Appearance Urine pH Ur Specific [place] Urine Protein Urine Glucose (UA) Urine Ketones Urine Blood Urine Nitrite Ur Leukocyte Esterase Urine RBC Urine WBC Ur Squamous Epith Cells Urine Bacteria Hyaline Casts Urine Opiates Screen Urine Fentanyl Screen Ur Barbiturates Screen Ur Phencyclidine Scrn Ur Amphetamines Screen U Benzodiazepines Scrn Urine Cocaine Screen U Marijuana (THC) Screen COVID-19 (KELLY) COVID-19 Clin Com Influenza Type A (YUSEF) Influenza Type B (YUSEF) Influenza A & B Note 04/12/23 04/12/23 04/12/23 21:04 21:10 21:22 MCV MCH MCHC RDW Plt Count MPV Immature Gran % (Auto) Neut % (Auto) Lymph % (Auto) Benson % (Auto) Eos % (Auto) Baso % (Auto) Lymph # (Auto) Benson # (Auto) Eos # (Auto) Baso # (Auto) Abs Immat Gran (auto) Absolute Neuts (auto) Absolute Nucleated RBC Nucleated RBC % (auto) PT INR VBG pH 7.31 L VBG pCO2 27 VBG pO2 67 VBG HCO3 14 L VBG O2 Saturation 88.0 VBG Base Excess -9.9 Anion Gap Estim Creat Clear Calc Estimated GFR POC Glucose Random Glucose Lactic Acid Calcium Magnesium Total Bilirubin Direct Bilirubin AST ALT Alkaline Phosphatase B-Natriuretic Peptide 20 Total Protein Albumin Urine Color Urine Appearance Urine pH Ur Specific [place] Urine Protein Urine Glucose (UA) Urine Ketones Urine Blood Urine Nitrite Ur Leukocyte Esterase Urine RBC Urine WBC Ur Squamous Epith Cells Urine Bacteria Hyaline Casts Urine Opiates Screen Urine Fentanyl Screen Ur Barbiturates Screen Ur Phencyclidine Scrn Ur Amphetamines Screen U Benzodiazepines Scrn Urine Cocaine Screen U Marijuana (THC) Screen COVID-19 (KELLY) Negative COVID-19 Clin Com See Note Influenza Type A (UYSEF) Negative Influenza Type B (YUSEF) Negative Influenza A & B Note See Note 04/12/23 21:36 MCV MCH MCHC RDW Plt Count MPV Immature Gran % (Auto) Neut % (Auto) Lymph % (Auto) Benson % (Auto) Eos % (Auto) Baso % (Auto) Lymph # (Auto) Benson # (Auto) Eos # (Auto) Baso # (Auto) Abs Immat Gran (auto) Absolute Neuts (auto) Absolute Nucleated RBC Nucleated RBC % (auto) PT INR VBG pH VBG pCO2 VBG pO2 VBG HCO3 VBG O2 Saturation VBG Base Excess Anion Gap Estim Creat Clear Calc Estimated GFR POC Glucose Random Glucose Lactic Acid Calcium Magnesium Total Bilirubin Direct Bilirubin AST ALT Alkaline Phosphatase B-Natriuretic Peptide Total Protein Albumin Urine Color Dark Yellow Urine Appearance Cloudy Urine pH 5.5 Ur Specific Hampton 1.020 Urine Protein Negative Urine Glucose (UA) Negative Urine Ketones Trace Urine Blood Negative Urine Nitrite Negative Ur Leukocyte Esterase Small (1+) H Urine RBC 3-5 H Urine WBC 0-5 Ur Squamous Epith Cells 6-10 Urine Bacteria 4+ Hyaline Casts 11-20 Urine Opiates Screen Not Detected Urine Fentanyl Screen Not Detected Ur Barbiturates Screen Not Detected Ur Phencyclidine Scrn Not Detected Ur Amphetamines Screen Not Detected U Benzodiazepines Scrn Not Detected Urine Cocaine Screen Not Detected U Marijuana (THC) Screen Not Detected COVID-19 (KELLY) COVID-19 Clin Com Influenza Type A (YUSEF) Influenza Type B (YUSEF) Influenza A & B Note Imaging Radiologist's Impressions: Impressions Chest X-Ray 04/12/23 21:15 IMPRESSION: No active cardiopulmonary disease. Left eighth rib fracture of uncertain acuity and current significance. Chest CTA 04/12/23 22:47 IMPRESSION: No evidence of pulmonary embolism. No active cardiopulmonary disease. VTE: negative Assessment and Plan (1) Acute hypoxemic respiratory failure: Status: Acute (2) Toxic metabolic encephalopathy: Status: Acute (3) Metabolic acidosis: Status: Acute Plan a 56-year-old female with past medical history of gastrectomy, distal absorption, history of paroxysmal as surgery, small-bowel obstruction, hyperlipidemia anxiety depression, diabetes and migraine headaches, TRUNG, among others who presents to the hospital with Altered mentation and hypoxia. Acute hypoxic respiratory failure No clear acute illness in lung images ; no PNA or PE on CTA PAtient improved to 100% on RA at time of interview could be related to AMS incident ? monitor O2 and respiratory status for now Toxic metabolic encephalopathy Could be 2/2 medications as patient on polypharmacy Hold Zyrtec, Clonazepam, Hydroxizine, Latuda, Melatonin Continue Nortriptyline and Keppra check Keppra level Neurochecks Consider lowering or DC meds on discharge as she has been losing weight constantly Metabolic acidosis with resp alkalosis post CPAP treatment could be related to hypoxic event normal LA repeat BMP and VBG Moderate Malnutrition Low Albumin, weight loss Nutritional assessment Physical deconditioning PT eval DVT PPx Lovenox The patient will need at least 2 overnight hospital stay for evaluation of above pending repeat blood work and clinical improvement Time Spent With Patient Time: Total time managing care of this patient today ____ minutes. Quality Stroke Does the patient have a stroke diagnosis?: No VTE Prior VTE?: No VTE Risk Level:: Medical - moderate - high VTE Device Contraindication: Treatment Not Indicated VTE Drug Contraindication: N/A - Med Ordered
[2023-04-13 05:25] LABS: MANUAL DIFF FLAG NO
[2023-04-13 05:27] LABS: Venous Blood Gas Refer to POC result
[2023-04-13 05:29] LABS: VBG Base Excess -10.4 mmol/L; VBG HCO3 13 mmol/L (22-26); VBG pCO2 25 mmHg; VBG pH 7.33 (7.32-7.43); VBG pO2 49 mmHg
[2023-04-13 05:33] LABS: Basophils Percent Auto 0.1 % (0-2); Eosinophils Percent Auto 0.1 % (0-4); Hematocrit 28.7 % (37.0-47.0); Hemoglobin 9.8 g/dl (12.0-16.0); Imm Gran Abs Auto 0.03 X10*3/uL (0.00-0.03); Imm Gran Pct Auto 0.3 % (0.0-0.4); Lymphocytes Absolute Auto 2.2 X10*3/uL (1.2-4.9); Lymphocytes Percent Auto 24.2 % (20-40); Mean Corpuscular HGB Conc 34.1 g/dl (31.0-35.0); Mean Corpuscular Hemoglobin 30.2 pg (27.0-33.0); Mean Corpuscular Volume 88.3 fL (80.0-98.0); Mean Platelet Volume 10.3 fL (9.4-12.3); Monocytes Absolute Auto 0.4 X10*3/uL (0.1-1.2); Monocytes Percent Auto 4.8 % (2-11); NRBC Pct Auto 0.3 /100WBC (0.0-0.2); Neutrophils Absolute Auto 6.4 x10*3/uL (2.0-8.3); Neutrophils Percent Auto 70.5 % (45-73); Platelet Count 132 X10*3/uL (160-400); Red Blood Count 3.25 X10*6/uL (4.20-5.50); Red Cell Distribution Width 17.7 % (11.0-16.0); White Blood Count 9.1 X10*3/uL (4.8-10.8)
[2023-04-13 05:43] LABS: Anion Gap 11 (12-20); Blood Urea Nitrogen 19 mg/dL (9-16); Calcium 7.6 mg/dL (8.4-10.2); Carbon Dioxide 14 mmol/L (22-29); Chloride 115 mmol/L (96-108); Creatinine Clr Calc Pharmacy 50.2; Estimated Glomerular Filt Rate > 60; Glucose Random 74 mg/dL (60-115); Sodium 136 mmol/L (135-145)
[2023-04-13] MEDS: Nortriptyline HCl 25 MG CAPSULE PO ×2 (09:00→20:38)
[2023-04-13] MEDS: acetaZOLAMIDE 250 MG TABLET PO (09:00)
[2023-04-13] MEDS: Dicyclomine HCl 10 MG CAPSULE PO (09:00)
[2023-04-13] MEDS: Enoxaparin Sodium 40 MG/0.4 ML SYRINGE SUBCUT (09:00)
[2023-04-13] MEDS: Spironolactone 25 MG TABLET PO (09:00)
[2023-04-13] MEDS: Omeprazole 20 MG CAPSULE.DR PO ×2 (09:00→20:39)
[2023-04-13] MEDS: Midodrine HCl 10 MG TABLET PO ×3 (09:00→20:39)
[2023-04-13] MEDS: valACYclovir HCL 1,000 MG TABLET 1000 MG PO (09:00)
[2023-04-13] MEDS: levETIRAcetam 250 MG TABLET PO ×2 (09:00→20:39)
[2023-04-13] MEDS: Magnesium Oxide 400 MG TABLET PO (09:01)
[2023-04-13] MEDS: Ascorbic Acid 500 MG TABLET PO (09:01)
[2023-04-13] MEDS: 0.9 % Sodium Chloride Flush 3 ML SYRINGE IVFLUSH (09:01)
[2023-04-13] MEDS: Cholecalciferol (Vitamin D3) 25 MCG TABLET PO (09:01)
--- NOTE | 2023-04-13 09:41 | PC.NURSE ---
patient medicated per MAR, reached put to attending regarding patient having difficulty swallowing with pudding. patient resting in bed, VSS
--- NOTE | 2023-04-13 09:59 | MHC.CM.PN ---
CM met with pt., she did not require an diplomatic interpreter/translator. She is resides at [facility]in [place], however, when asked she said she lives in [place]. She was lethargic and dozed off when talking. I tried to confirm her HCP which in on file, listed at [facility], and she did not seem to understand. She was able to tell me that Beth Guerra is her daughter. CM to follow and assist with DC, likely return to rehab for LTC.
[2023-04-13] MEDS: cefTRIAXone sodium 1 GM in 0.9 % Sodium Chloride 50 ML IV (12:35)
--- NOTE | 2023-04-13 12:39 | HO.PM.IMPN ---
Subjective Subjective Date of Service: 04/13/23 Interval History: lethargic, sob resolved Physical Exam Vital Signs: Vital Signs: Last Vital Signs Temp 97.1 F 04/13/23 05:04 Pulse 112 H 04/13/23 07:19 Resp 17 04/13/23 07:19 BP 99/58 L 04/13/23 07:19 Pulse Ox 100 04/13/23 07:19 O2 Del Method Room Air 04/13/23 07:19 BMI result Body Mass Index 18.7 lethargic oriented to person and place, time inconsistent, cachexic, lungs clear Objective Data Active Medications Acetaminophen (Acetaminophen 325 Mg Tablet) 650 mg PO Q6H PRN PRN Reason: Pain, Mild (Pain Scale 1-3) Ascorbic Acid (Ascorbic Acid 500 Mg Tablet) 500 mg PO DAILY [facility] Last Admin: 04/13/23 09:01 Dose: 500 mg Documented By: MENDOZA Bisacodyl (Bisacodyl 10 Mg Supp.Rect) 10 mg [place] DAILY PRN PRN Reason: Constipation Dicyclomine HCl (Dicyclomine Hcl 10 Mg Capsule) 10 mg PO DAILY [facility] Last Admin: 04/13/23 09:00 Dose: 10 mg Documented By: MENDOZA Enoxaparin Sodium (Enoxaparin Sodium 40 Mg/0.4 Ml Syringe) 40 mg SUBCUT Q24H [facility] Last Admin: 04/13/23 09:00 Dose: 40 mg Documented By: MENDOZA Ceftriaxone Sodium 1 gm/ (Sodium Chloride) 50 mls @ 100 mls/hr IV Q24H [facility] Last Admin: 04/13/23 12:35 Dose: 100 mls/hr Documented By: MENDOZA Lactated Ringer's (Lr) 1,000 mls @ 80 mls/hr IVCONT .[id number] [facility] Levetiracetam (Levetiracetam 250 Mg Tablet) 250 mg PO BID [facility] Last Admin: 04/13/23 09:00 Dose: 250 mg Documented By: MENDOZA Magnesium Oxide (Magnesium Oxide 400 Mg Tablet) 400 mg PO DAILY [facility] Last Admin: 04/13/23 09:01 Dose: 400 mg Documented By: MENDOZA Midodrine (Midodrine Hcl 10 Mg Tablet) 10 mg PO TID [facility] Last Admin: 04/13/23 09:00 Dose: 10 mg Documented By: MENDOZA Nortriptyline HCl (Nortriptyline Hcl 25 Mg Capsule) 25 mg PO BID [facility] Last Admin: 04/13/23 09:00 Dose: 25 mg Documented By: MENDOZA Omeprazole (Omeprazole 20 Mg Capsule.Dr) 20 mg PO BID [facility] Last Admin: 04/13/23 09:00 Dose: 20 mg Documented By: MENDOZA Ondansetron HCl (Ondansetron Hcl 4 Mg/2 Ml Vial) 4 mg IVPUSH Q8H PRN PRN Reason: Nausea and Vomiting Polyethylene Glycol (Polyethylene Glycol 3350 17 Gm Powd.Pack) 17 gm PO DAILY [facility] Last Admin: 04/13/23 09:41 Dose: Not Given Documented By: MENDOZA Non-Admin Reason: Patient Condition Contraindication Sodium Bicarbonate (Sodium Bicarbonate 650 Mg Tablet) 650 mg PO TID [facility] Sodium Biphosphate/Sodium Phosphate (Sodium Phosphate,[place]-Dibasic 133 Ml Enema) 197 ml [place] DAILY PRN PRN Reason: Constipation Sodium Chloride (0.9 % Sodium Chloride Flush 3 Ml Syringe) 3 ml IVFLUSH QSHIFT [facility] Last Admin: 04/13/23 09:01 Dose: 3 ml Documented By: MENDOZA Spironolactone (Spironolactone 25 Mg Tablet) 25 mg PO DAILY [facility]; Protocol Last Admin: 04/13/23 09:00 Dose: 25 mg Documented By: MENDOZA Topiramate (Topiramate 100 Mg Tablet) 100 mg PO BEDTIME [facility] Valacyclovir HCl (Valacyclovir Hcl 1,000 Mg Tablet) 1,000 mg PO DAILY [facility] Last Admin: 04/13/23 09:00 Dose: 1,000 mg Documented By: MENDOZA Vitamin D (Cholecalciferol (Vitamin D3) 25 Mcg Tablet) 25 mcg PO DAILY [facility] Last Admin: 04/13/23 09:01 Dose: 25 mcg Documented By: MENDOZA Labs 04/13/23 05:19 04/13/23 05:19 Labs: Laboratory Results - last 24 hr 04/12/23 04/12/23 04/12/23 20:04 20:54 21:03 MCV 86.4 MCH 30.1 MCHC 34.8 RDW 17.7 H Plt Count 151 L MPV 10.0 Immature Gran % (Auto) 0.4 Neut % (Auto) 63.8 Lymph % (Auto) 31.0 [place] % (Auto) 4.6 Eos % (Auto) 0.1 Baso % (Auto) 0.1 Lymph # (Auto) 2.2 [place] # (Auto) 0.3 Eos # (Auto) 0.0 Baso # (Auto) 0.0 Abs Immat Gran (auto) 0.03 Absolute Neuts (auto) 4.4 Absolute Nucleated RBC 0.000 Nucleated RBC % (auto) 0.0 PT 14.7 H INR 1.2 H VBG pH VBG pCO2 VBG pO2 VBG HCO3 VBG O2 Saturation VBG Base Excess Anion Gap 12 Estim Creat Clear Calc 49.0 Estimated GFR > 60 POC Glucose 73 Random Glucose 86 Lactic Acid 0.6 Calcium 7.5 L D Magnesium 1.9 Total Bilirubin 0.5 Direct Bilirubin 0.2 AST 25 ALT 20 Alkaline Phosphatase 179 H B-Natriuretic Peptide Total Protein 5.0 L Albumin 2.0 L Urine Color Urine Appearance Urine pH Ur Specific [place] Urine Protein Urine Glucose (UA) Urine Ketones Urine Blood Urine Nitrite Ur Leukocyte Esterase Urine RBC Urine WBC Ur Squamous Epith Cells Urine Bacteria Hyaline Casts Urine Opiates Screen Urine Fentanyl Screen Ur Barbiturates Screen Ur Phencyclidine Scrn Ur Amphetamines Screen U Benzodiazepines Scrn Urine Cocaine Screen U Marijuana (THC) Screen COVID-19 (KELLY) COVID-19 Clin Com Influenza Type A (YUSEF) Influenza Type B (YUSEF) Influenza A & B Note 04/12/23 04/12/23 04/12/23 21:04 21:10 21:22 MCV MCH MCHC RDW Plt Count MPV Immature Gran % (Auto) Neut % (Auto) Lymph % (Auto) [place] % (Auto) Eos % (Auto) Baso % (Auto) Lymph # (Auto) [place] # (Auto) Eos # (Auto) Baso # (Auto) Abs Immat Gran (auto) Absolute Neuts (auto) Absolute Nucleated RBC Nucleated RBC % (auto) PT INR VBG pH 7.31 L VBG pCO2 27 VBG pO2 67 VBG HCO3 14 L VBG O2 Saturation 88.0 VBG Base Excess -9.9 Anion Gap Estim Creat Clear Calc Estimated GFR POC Glucose Random Glucose Lactic Acid Calcium Magnesium Total Bilirubin Direct Bilirubin AST ALT Alkaline Phosphatase B-Natriuretic Peptide 20 Total Protein Albumin Urine Color Urine Appearance Urine pH Ur Specific [place] Urine Protein Urine Glucose (UA) Urine Ketones Urine Blood Urine Nitrite Ur Leukocyte Esterase Urine RBC Urine WBC Ur Squamous Epith Cells Urine Bacteria Hyaline Casts Urine Opiates Screen Urine Fentanyl Screen Ur Barbiturates Screen Ur Phencyclidine Scrn Ur Amphetamines Screen U Benzodiazepines Scrn Urine Cocaine Screen U Marijuana (THC) Screen COVID-19 (KELLY) Negative COVID-19 Clin Com See Note Influenza Type A (YUSEF) Negative Influenza Type B (YUSEF) Negative Influenza A & B Note See Note 04/12/23 04/13/23 04/13/23 21:36 05:19 05:22 MCV 88.3 MCH 30.2 MCHC 34.1 RDW 17.7 H Plt Count 132 L MPV 10.3 Immature Gran % (Auto) 0.3 Neut % (Auto) 70.5 Lymph % (Auto) 24.2 [place] % (Auto) 4.8 Eos % (Auto) 0.1 Baso % (Auto) 0.1 Lymph # (Auto) 2.2 [place] # (Auto) 0.4 Eos # (Auto) 0.0 Baso # (Auto) 0.0 Abs Immat Gran (auto) 0.03 Absolute Neuts (auto) 6.4 Absolute Nucleated RBC 0.030 H Nucleated RBC % (auto) 0.3 H PT INR VBG pH 7.33 VBG pCO2 25 VBG pO2 49 VBG HCO3 13 L VBG O2 Saturation 74.0 VBG Base Excess -10.4 Anion Gap 11 L Estim Creat Clear Calc 50.2 Estimated GFR > 60 POC Glucose Random Glucose 74 Lactic Acid Calcium 7.6 L Magnesium Total Bilirubin Direct Bilirubin AST ALT Alkaline Phosphatase B-Natriuretic Peptide Total Protein Albumin Urine Color Dark Yellow Urine Appearance Cloudy Urine pH 5.5 Ur Specific [place] 1.020 Urine Protein Negative Urine Glucose (UA) Negative Urine Ketones Trace Urine Blood Negative Urine Nitrite Negative Ur Leukocyte Esterase Small (1+) H Urine RBC 3-5 H Urine WBC 0-5 Ur Squamous Epith Cells 6-10 Urine Bacteria 4+ Hyaline Casts 11-20 Urine Opiates Screen Not Detected Urine Fentanyl Screen Not Detected Ur Barbiturates Screen Not Detected Ur Phencyclidine Scrn Not Detected Ur Amphetamines Screen Not Detected U Benzodiazepines Scrn Not Detected Urine Cocaine Screen Not Detected U Marijuana (THC) Screen Not Detected COVID-19 (KELLY) COVID-19 Clin Com Influenza Type A (YUSEF) Influenza Type B (YUSEF) Influenza A & B Note Microbiology Microbiology Results: Microbiology 04/12/23 Unknown Urine Culture - Preliminary Urine clean catch - Urine acuna top Gram negative shalom Assessment and Plan (1) Metabolic acidosis: Status: Acute Plan 56F PMH gatric bypass, SBOs, hld, depression, DM, migraines, trung, presented with ams and hypoxia acute hypoxic respiratory failure unclear etiology, ?lack of resp effort resolved, on room air, cxr unremarkable acute toxic metabolic encephalopathy multifactorial uti, polypharmacy started Rocephin, follow up cultures chronic non anion gap metabolic acidosis due to acetozolamide dc azetozolamide, oral bicarb, monitor moderate protein calorie malnutrition due to excessive weight loss/malabsorption s/p gastric bypass follow up nutrition history of DM,TRUNG, htn - resolved dvt prophylaxis - lovenox full code reason for continued hospitalization:not at [facility] mental status Time Spent With Patient Time: Total time managing care of this patient today ____ minutes. Quality Stroke Does the patient have a stroke diagnosis?: No VTE Prior VTE?: No VTE Risk Level:: Medical - moderate - high VTE Device Contraindication: Treatment Not Indicated VTE Drug Contraindication: N/A - Med Ordered
--- NOTE | 2023-04-13 13:36 | MHC.SL.SWA ---
Speech Pathologist Impression: Risk of Aspiration Due to: Lethargy Dysphasia Diet Status: Liquid Consistency and Strategies for Safe Swallow: Liquid Intake Recommendation: Thin Liquid Intake Strategies: Small Sips Solid Food Consistency: Dietary Recommendations: Pureed (NDD1) Additional Modifications to Solid Foods: Oral Medication Intake: Whole with Puree Please contact the pharmacy regarding appropriate crushable or liquid drug formulations that are available whenever modified delivery is recommended. Compensatory Strategies and Precautions to be Taken for Safe Swallow: Sitting Upright (90 deg) Liquids from Straw Alternate Liquids/Solids Rate of Ingestion Change Oral Check Supervision While Eating and Drinking for Safe Swallow: Total Supervision (1:1) Foods to Avoid: Mixed consistencies. Swallowing Recommended Treatments: Compens. Strategy Educat. Recommendation for Speech: Inpatient Speech Therapy Comment: Recommend Pt initiate diet of GROUND/MECH ALTERED SOLIDS (NDD2) and THIN LIQUIDS. Medications WHOLE with PUREE, as tolerated. Pt will require 1:1 FEEDING ASSISTANCE at this time, but should be encouraged to self-administered as she progresses. MINE CAPTAIN will continue to follow. Frequency/Duration: Date Range for Service Req: Timeline to reassess: PRN Rn Oncology Clinican/Clinical Fellow: No Supervisory Statement: I have reviewed and agree with the student/clinical fellow's documentation: N/A Speech Language Pathologist: Elio Penn M.A., CCC-MINE CAPTAIN
[2023-04-13] MEDS: Lactated Ringers 1,000 ML 80 ML IVCONT (13:48)
--- NOTE | 2023-04-13 14:00 | PC.NURSE ---
patient nted to be incontinent of urine, patient xleaned up, pads and linens changed.
[2023-04-13] MEDS: Sodium Bicarbonate 650 MG TABLET PO ×2 (16:07→20:39)
--- NOTE | 2023-04-13 18:35 | PC.NURSE ---
allevyn pad placed on patients coccyx, patient has small sore area on coccyx
[2023-04-13] MEDS: Topiramate 100 MG TABLET PO (20:39)
[2023-04-14] MEDS: Lactated Ringers 1,000 ML 80 ML IVCONT ×2 (00:11→12:58)
[2023-04-14] MEDS: 0.9 % Sodium Chloride Flush 3 ML SYRINGE IVFLUSH ×3 (00:12→16:35)
[2023-04-14] MEDS: Acetaminophen 325 MG TABLET 650 MG PO (04:29)
[2023-04-14 04:39] VITALS: BMI 21.9
[2023-04-14 07:03] LABS: Hematocrit 25.4 % (37.0-47.0); Hemoglobin 8.8 g/dl (12.0-16.0); Mean Corpuscular HGB Conc 34.6 g/dl (31.0-35.0); Mean Corpuscular Hemoglobin 29.8 pg (27.0-33.0); Mean Corpuscular Volume 86.1 fL (80.0-98.0); Mean Platelet Volume 10.4 fL (9.4-12.3); Platelet Count 109 X10*3/uL (160-400); Red Blood Count 2.95 X10*6/uL (4.20-5.50); Red Cell Distribution Width 17.5 % (11.0-16.0); White Blood Count 10.4 X10*3/uL (4.8-10.8)
[2023-04-14 07:19] LABS: Alanine Aminotransferase 22 U/L (0-31); Albumin Level 1.8 g/dL (3.5-5.0); Alkaline Phosphatase 155 U/L (39-117); Anion Gap 10 (12-20); Aspartate Amino Transferase 20 U/L (5-31); Bilirubin Direct 0.3 mg/dL (0.0-0.5); Bilirubin Total 0.5 mg/dL (0.0-1.0); Blood Urea Nitrogen 19 mg/dL (9-16); Calcium 7.5 mg/dL (8.4-10.2); Carbon Dioxide 16 mmol/L (22-29); Chloride 116 mmol/L (96-108); Creatinine Clr Calc Pharmacy 65.3; Estimated Glomerular Filt Rate > 60; Glucose Fasting 74 mg/dL (60-99); Magnesium 1.9 mg/dL (1.6-2.6); Phosphorus 2.7 mg/dL (2.7-4.5); Potassium 3.7 mmol/L (3.3-5.1); Sodium 138 mmol/L (135-145); Total Protein 4.5 g/dL (6.5-8.0)
[2023-04-14 07:59] VITALS: BP 113/57; PULSE 113; RESP 16; TEMP 36.4; O2SAT 100
[2023-04-14] MEDS: Midodrine HCl 10 MG TABLET PO ×3 (09:14→20:26)
[2023-04-14] MEDS: Nortriptyline HCl 25 MG CAPSULE PO ×2 (09:14→20:25)
[2023-04-14] MEDS: Cholecalciferol (Vitamin D3) 25 MCG TABLET PO (09:14)
[2023-04-14] MEDS: levETIRAcetam 250 MG TABLET PO ×2 (09:14→20:25)
[2023-04-14] MEDS: Omeprazole 20 MG CAPSULE.DR PO ×2 (09:14→20:25)
[2023-04-14] MEDS: valACYclovir HCL 1,000 MG TABLET 1000 MG PO (09:14)
[2023-04-14] MEDS: Sodium Bicarbonate 650 MG TABLET PO ×3 (09:14→20:26)
[2023-04-14] MEDS: Magnesium Oxide 400 MG TABLET PO (09:14)
[2023-04-14] MEDS: Dicyclomine HCl 10 MG CAPSULE PO (09:14)
[2023-04-14] MEDS: Enoxaparin Sodium 40 MG/0.4 ML SYRINGE SUBCUT (09:14)
[2023-04-14] MEDS: Ascorbic Acid 500 MG TABLET PO (09:14)
[2023-04-14] MEDS: polyethylene glycoL 3350 17 GM POWD.PACK PO (09:24)
[2023-04-14 11:17] VITALS: BP 101/57; PULSE 111; RESP 20; TEMP 36.3; O2SAT 100
[2023-04-14] MEDS: cefTRIAXone sodium 1 GM in 0.9 % Sodium Chloride 50 ML IV (12:49)
--- NOTE | 2023-04-14 14:11 | MHC.CM.PN ---
EMR REVIEWED, PT W/UTI, SOB RESOLVED, PER HOSPITALIST NO D/C TODAY D/T PENDING BLOOD CULTURES, URINE + FOR ECOLI, PLAN REMAINS FOR PT TO RETURN TO LTC AT [facility], RETURN REFERRAL SENT, CM WILL CONT TO FOLLOW DC NEEDS.
[2023-04-14 14:46] VITALS: BMI 21.9
--- NOTE | 2023-04-14 14:51 | MHC.CLN ---
PT IS MODERATELY MALNOURISHED PT WITH 18% SIGNIFICANT WT LOSS X 6 MONTHS WITH MILD DEPLETED SUBCUTANEOUS FAT AND POOR PO DIET RX:GRD M/S LACTOSE FREE-APPROPRIATE PT RECEPTIVE TO DRINKING A SUPPLEMENT RECOMMEND ADDING ENSURE CLEAR TID TO INCREASE KCALS SUPP TO PROVIDE 720KCALS, 24G PROTEIN MONITOR PO INTAKE
--- NOTE | 2023-04-14 15:28 | HO.PM.IMPN ---
Subjective Subjective Date of Service: 04/14/23 Interval History: still lethargic and frail low oral intake reporting chest pain Review of Systems No fever, chills or weakness No chest pain, palpitation No shortness of breath or coughing No abdominal pain, nausea or vomiting No urinary symptoms No any rash or wounds Physical Exam Vital Signs: Vital Signs: Last Vital Signs Temp 97.3 F 04/14/23 11:17 Pulse 111 H 04/14/23 11:17 Resp 20 04/14/23 11:17 BP 101/57 L 04/14/23 11:17 Pulse Ox 100 04/14/23 11:17 O2 Del Method Room Air 04/14/23 11:17 BMI result Body Mass Index 21.9 Const: Other: Constitutional : Awake with stimualation, cachetic, weak and lethargic Neck : Normal inspection, Supple Cardiovascular : RRR, no JVP, no lower extremity edema Respiratory : good bilateral air entry, no crackles, wheezes or rhonchi Gastrointestinal: soft, lax, Normal bowel sounds, Non tender Skin : Warm, Dry Neurological : Alert & oriented to place and self, No focal deficit but overall weakness Objective Data Active Medications Acetaminophen (Acetaminophen 325 Mg Tablet) 650 mg PO Q6H PRN PRN Reason: Pain, Mild (Pain Scale 1-3) Last Admin: 04/14/23 04:29 Dose: 650 mg Documented By: TERESA Ascorbic Acid (Ascorbic Acid 500 Mg Tablet) 500 mg PO DAILY [facility] Last Admin: 04/14/23 09:14 Dose: 500 mg Documented By: LISBETH Bisacodyl (Bisacodyl 10 Mg Supp.Rect) 10 mg IN DAILY PRN PRN Reason: Constipation Dicyclomine HCl (Dicyclomine Hcl 10 Mg Capsule) 10 mg PO DAILY [facility] Last Admin: 04/14/23 09:14 Dose: 10 mg Documented By: LISBETH Enoxaparin Sodium (Enoxaparin Sodium 40 Mg/0.4 Ml Syringe) 40 mg SUBCUT Q24H [facility] Last Admin: 04/14/23 09:14 Dose: 40 mg Documented By: LISBETH Ceftriaxone Sodium 1 gm/ (Sodium Chloride) 50 mls @ 100 mls/hr IV Q24H [facility] Last Infusion: 04/14/23 13:48 Dose: Infused Documented By: HO.DOBROB Lactated Ringer's (Lr) 1,000 mls @ 80 mls/hr IVCONT .[id number] [facility] Last Admin: 04/14/23 12:58 Dose: 80 mls/hr Documented By: BOBBY Levetiracetam (Levetiracetam 250 Mg Tablet) 250 mg PO BID [facility] Last Admin: 04/14/23 09:14 Dose: 250 mg Documented By: LISBETH Magnesium Oxide (Magnesium Oxide 400 Mg Tablet) 400 mg PO DAILY [facility] Last Admin: 04/14/23 09:14 Dose: 400 mg Documented By: LISBETH Midodrine (Midodrine Hcl 10 Mg Tablet) 10 mg PO TID [facility] Last Admin: 04/14/23 09:14 Dose: 10 mg Documented By: LISBETH Nortriptyline HCl (Nortriptyline Hcl 25 Mg Capsule) 25 mg PO BID [facility] Last Admin: 04/14/23 09:14 Dose: 25 mg Documented By: LISBETH Omeprazole (Omeprazole 20 Mg Capsule.Dr) 20 mg PO BID [facility] Last Admin: 04/14/23 09:14 Dose: 20 mg Documented By: LISBETH Ondansetron HCl (Ondansetron Hcl 4 Mg/2 Ml Vial) 4 mg IVPUSH Q8H PRN PRN Reason: Nausea and Vomiting Polyethylene Glycol (Polyethylene Glycol 3350 17 Gm Powd.Pack) 17 gm PO DAILY [facility] Last Admin: 04/14/23 09:24 Dose: 17 gm Documented By: LISBETH Sodium Bicarbonate (Sodium Bicarbonate 650 Mg Tablet) 650 mg PO TID [facility] Last Admin: 04/14/23 09:14 Dose: 650 mg Documented By: LISBETH Sodium Biphosphate/Sodium Phosphate (Sodium Phosphate,[place]-Dibasic 133 Ml Enema) 197 ml IN DAILY PRN PRN Reason: Constipation Sodium Chloride (0.9 % Sodium Chloride Flush 3 Ml Syringe) 3 ml IVFLUSH QSHIFT [facility] Last Admin: 04/14/23 09:15 Dose: 3 ml Documented By: LISBETH Spironolactone (Spironolactone 25 Mg Tablet) 25 mg PO DAILY [facility]; Protocol Last Admin: 04/13/23 09:00 Dose: 25 mg Documented By: MENDOZA Topiramate (Topiramate 100 Mg Tablet) 100 mg PO BEDTIME [facility] Last Admin: 04/13/23 20:39 Dose: 100 mg Documented By: HUNG Valacyclovir HCl (Valacyclovir Hcl 1,000 Mg Tablet) 1,000 mg PO DAILY [facility] Last Admin: 04/14/23 09:14 Dose: 1,000 mg Documented By: LISBETH Vitamin D (Cholecalciferol (Vitamin D3) 25 Mcg Tablet) 25 mcg PO DAILY [facility] Last Admin: 04/14/23 09:14 Dose: 25 mcg Documented By: LISBETH Labs 04/14/23 06:39 04/14/23 06:39 Labs: Laboratory Results - last 24 hr 04/14/23 06:39 MCV 86.1 MCH 29.8 MCHC 34.6 RDW 17.5 H Plt Count 109 L MPV 10.4 Absolute Nucleated RBC 0.000 Nucleated RBC % (auto) 0.0 Anion Gap 10 L Estim Creat Clear Calc 65.3 Estimated GFR > 60 Fasting Glucose 74 Calcium 7.5 L Phosphorus 2.7 Magnesium 1.9 Total Bilirubin 0.5 Direct Bilirubin 0.3 AST 20 ALT 22 Alkaline Phosphatase 155 H Total Protein 4.5 L Albumin 1.8 L Microbiology Microbiology Results: Microbiology 04/12/23 Unknown Urine Culture - Final Urine clean catch - Urine acuna top Escherichia coli 04/12/23 21:04 Blood Culture - Preliminary Blood - Venous No growth after 24 hours. 04/12/23 21:04 Blood Culture - Preliminary Blood - Venous No growth after 24 hours. Assessment and Plan (1) Metabolic acidosis: Status: Acute (2) Toxic metabolic encephalopathy: Status: Acute (3) Acute hypoxemic respiratory failure: Status: Acute Plan 56F PMH gatric bypass, SBOs, hld, depression, DM, migraines, trung, presented with ams and hypoxia acute hypoxic respiratory failure unclear etiology, ?lack of resp effort, over medicated ? resolved, on room air, cxr unremarkable acute toxic metabolic encephalopathy multifactorial uti, polypharmacy started Rocephin, Ecoli in urine cultures improving chronic non anion gap metabolic acidosis due to acetozolamide dc azetozolamide, oral bicarb, monitor moderate protein calorie malnutrition due to excessive weight loss/malabsorption s/p gastric bypass follow up nutrition history of DM,TRUNG, htn - resolved dvt prophylaxis - lovenox full code reason for continued hospitalization:not at [facility] Stroke Does the patient have a stroke diagnosis?: No VTE Prior VTE?: No VTE Risk Level:: Medical - moderate - high VTE Device Contraindication: Treatment Not Indicated VTE Drug Contraindication: N/A - Med Ordered
[2023-04-14 15:31] VITALS: BP 102/72; PULSE 108; RESP 16; TEMP 36.3; O2SAT 99
--- NOTE | 2023-04-14 16:27 | MHC.SL.SWA ---
Addendum entered and electronically signed by BONI Watkins 04/15/23 13:15: Dietary recommendation listed in this note is meant to be ground/mech altered (NDD2) and not pureed (NDD1) as noted under solid food consistency Original Note: Risk of Aspiration Due to: Lethargy Weak voice Dysphasia Diet Status: no change Liquid Consistency and Strategies for Safe Swallow: Liquid Intake Recommendation: Thin Liquid Intake Strategies: Small Sips Solid Food Consistency: Dietary Recommendations: Pureed (NDD1) Oral Medication Intake: Whole/crushed with Puree Please contact the pharmacy regarding appropriate crushable or liquid drug formulations that are available whenever modified delivery is recommended. Compensatory Strategies and Precautions to be Taken for Safe Swallow: Sitting Upright (90 deg) Liquids from Straw Alternate Liquids/Solids Rate of Ingestion Change Oral Check Supervision While Eating and Drinking for Safe Swallow: Total Supervision (1:1) Foods to Avoid: Mixed consistencies. Swallowing Recommended Treatments: Compens. Strategy Educat. Recommendation for Speech: Inpatient Speech Therapy Recommend patient continue with GROUND/MECH ALTERED solids (NDD2), thin liquids, and pills whole/crushed with puree. Pt will require 1:1 FEEDING ASSISTANCE at this time, but should be encouraged to self-administered as she progresses. INTERNAL GRINDER SET UP OPERATOR will continue to follow. Clinical Research Manager Clinican/Clinical Fellow: No Supervisory Statement: I have reviewed and agree with the student/clinical fellow's documentation: N/A Speech Language Pathologist: Delaney Maher M.A., CCC-INTERNAL GRINDER SET UP OPERATOR
[2023-04-14 19:23] VITALS: BP 108/63; PULSE 111; RESP 16; TEMP 36.2; O2SAT 100
[2023-04-14] MEDS: Topiramate 100 MG TABLET PO (20:25)
[2023-04-14 23:55] VITALS: BP 96/56; PULSE 104; RESP 20; TEMP 36.1; O2SAT 98
[2023-04-15] MEDS: 0.9 % Sodium Chloride Flush 3 ML SYRINGE IVFLUSH ×4 (00:07→22:34)
[2023-04-15] MEDS: Lactated Ringers 1,000 ML 80 ML IVCONT (00:07)
[2023-04-15 03:05] VITALS: BP 98/57; PULSE 104; RESP 20; TEMP 36.1; O2SAT 97
[2023-04-15 06:13] LABS: Prolactin 13.9 ng/mL
[2023-04-15 06:17] LABS: Hematocrit 22.9 % (37.0-47.0); Hemoglobin 8.1 g/dl (12.0-16.0); Mean Corpuscular HGB Conc 35.4 g/dl (31.0-35.0); Mean Corpuscular Hemoglobin 29.8 pg (27.0-33.0); Mean Corpuscular Volume 84.2 fL (80.0-98.0); Mean Platelet Volume 11.1 fL (9.4-12.3); NRBC Pct Auto 0.3 /100WBC (0.0-0.2); Platelet Count 123 X10*3/uL (160-400); Red Blood Count 2.72 X10*6/uL (4.20-5.50); Red Cell Distribution Width 17.2 % (11.0-16.0); White Blood Count 6.3 X10*3/uL (4.8-10.8)
[2023-04-15 06:40] LABS: Anion Gap 8 (12-20); Blood Urea Nitrogen 15 mg/dL (9-16); Calcium 7.3 mg/dL (8.4-10.2); Carbon Dioxide 18 mmol/L (22-29); Chloride 116 mmol/L (96-108); Creatinine Clr Calc Pharmacy 76.2; Estimated Glomerular Filt Rate > 60; Glucose Random 59 mg/dL (60-115); Potassium 3.6 mmol/L (3.3-5.1); Sodium 138 mmol/L (135-145)
[2023-04-15 07:12] LABS: Glucose, Whole Blood 70 mg/dL (60-115)
[2023-04-15 07:37] VITALS: BP 94/54; PULSE 110; RESP 20; TEMP 36.7; O2SAT 100
[2023-04-15 08:31] LABS: Lactate Dehydrogenase 185 U/L (122-220)
[2023-04-15] MEDS: Cholecalciferol (Vitamin D3) 25 MCG TABLET PO (08:42)
[2023-04-15] MEDS: Nortriptyline HCl 25 MG CAPSULE PO ×2 (08:42→20:18)
[2023-04-15] MEDS: Magnesium Oxide 400 MG TABLET PO (08:42)
[2023-04-15] MEDS: Omeprazole 20 MG CAPSULE.DR PO ×2 (08:42→20:18)
[2023-04-15] MEDS: levETIRAcetam 250 MG TABLET PO ×2 (08:42→20:18)
[2023-04-15] MEDS: Sodium Bicarbonate 650 MG TABLET PO ×3 (08:42→20:18)
[2023-04-15] MEDS: Ascorbic Acid 500 MG TABLET PO (08:42)
[2023-04-15] MEDS: valACYclovir HCL 1,000 MG TABLET 1000 MG PO (08:42)
[2023-04-15] MEDS: Fludrocortisone Acetate 0.1 MG TABLET PO (08:42)
[2023-04-15] MEDS: Enoxaparin Sodium 40 MG/0.4 ML SYRINGE SUBCUT (08:43)
[2023-04-15] MEDS: polyethylene glycoL 3350 17 GM POWD.PACK PO (08:43)
[2023-04-15] MEDS: Dicyclomine HCl 10 MG CAPSULE PO (08:43)
[2023-04-15] MEDS: Midodrine HCl 10 MG TABLET PO ×3 (08:43→20:18)
[2023-04-15 09:02] LABS: Erythrocyte Sedimentation Rate 2 MM/HR (0-20)
[2023-04-15 10:07] LABS: Albumin Level 1.6 g/dL (3.5-5.0); Magnesium 1.7 mg/dL (1.6-2.6); Phosphorus 2.2 mg/dL (2.7-4.5)
--- NOTE | 2023-04-15 10:12 | P.CDIM_ITS ---
PROVIDER RESPONSE TEXT: To clarify, the appropriate diagnosis supported by the clinical indicators: Pressure (decubitus) ulcer/injury Coccyx Stage 1 QUERY TEXT: PHYSICIAN'S DOCUMENTATION REQUEST Date of Query: 04/15/2023 08:13 AM EDT Patient Name: Yaneth Ware Admit Date: 04/13/2023 Dear Kiley Myers, A review of the medical record indicates additional documentation may be needed. Please review below and update the documentation accordingly. Clinical Indicators: Wound care nursing notes - Pressure injury coccyx Stage 1 Based on the above, could you please provide further information regarding the ulcer/wound/injury: Pressure (decubitus) ulcer/injury Coccyx Stage 1 Other please specify Other (explain)Clinically unable to determine (explain)Thank you, Ann Tavarez, CCS, CDIS Use of terms such as suspected, likely, concern for, or probable (associated with a specific diagnosi s that is being evaluated, monitored, or treated as if it exists) are acceptable and can be coded in the inpatient se tting, when documented at the time of discharge. Please use your independent medical judgment in providing your response. THIS QUERY IS PART OF THE PERMANENT MEDICAL RECORD
--- NOTE | 2023-04-15 10:21 | MHC.CM.PN ---
EMR REVIEWED, PER HOSPITALIST PLAN TO START PT ON PPN, NO PLAN FOR DC AT THIS TIME, CM WILL CONT TO FOLLOW DC NEEDS.
[2023-04-15 11:26] VITALS: BP 98/78; PULSE 121; RESP 20; TEMP 36.7; O2SAT 100
[2023-04-15] MEDS: cefTRIAXone sodium 1 GM in 0.9 % Sodium Chloride 50 ML IV (11:56)
--- NOTE | 2023-04-15 12:30 | PM.HPGS ---
History of Present Illness History of Present Illness Date of Service: 04/15/23 Chief complaint: Hypoxic failure, altered mentation Narrative: Yaneth Ware is a 57 year old female, who is living [facility] due to being deconditioned an not able to take care of heself for the past 6-7 ,months), known to the bariatric department. She underwent GBP by Dr Escamilla in Mar 2019 at ~ 294 lbs , BMI of 47. She initially had some n/v for the first 3 months but this resolved and she reached a healthy weight of 154 lbs in October of 2021 which she maintained until her last appt in our office in September of 2022 with a weight of 142 lbs. At that time she stated that she would skip some meals and was no longer adhering to her meal plan, but then missed her follow up appointment one month later and has not been seen in the office since then. May 2021 she presented to the ED with c/o epigastric pain and RLQ pain. CT showed mesenteric twisting sound j-j ansatamoses and she was admitted and treated conservativley. Discharged home tolerating diet. Later that month she underwent EGD by Dr Victor with normal findings, no ulcers. In January 2022 she presented to [facility] with low abd pain and underwent laparotomy and repair of internal hernia for SBO. She was brought to [facility] ED on 04/13 wtih altered mental status, hypoxemia and toxic metabolic encephalopathy most likely due to severe malnutrition. Baritric team ws aksed to see patient for help with etiology and treatment. Review of Systems Constitutional: Constitutional: Reports anorexia, Reports fatigue, Reports lethargy, Reports malaise, Reports poor appetite and Reports weakness ENT: Reports dysphagia (inability to chew food due to poor dentition) and Denies odynophagia Cardiovascular: Cardiovascular: Reports no additional cardiovascular complaints Respiratory: Respiratory: Reports no additional respiratory complaints Gastrointestinal: Gastrointestinal: Reports as per HPI, Denies abdominal pain, Reports dysphagia (inability to chew food due to poor dentition), Denies nausea, Denies odynophagia, Denies vomiting and Denies hematemesis Musculoskeletal: Musculoskeletal: Reports abnormal gait and Reports myalgias (generalized) Neurologic: Reports abnormal gait, Reports confusion and Reports weakness Psychiatric: Psychiatric: Reports confusion Endocrine: Endocrine: Reports fatigue [facility] Past Medical History Medical History (Updated 04/13/23 @ 01:58 by Kiley Myers MD) Internal hernia Excess skin of upper extremity Lipoma History of lipoma Sleep apnea with use of continuous positive airway pressure (CPAP) Hypercholesterolemia Type 2 diabetes mellitus Lymphedema Migraines Anxiety Back pain Arthritis Carpal tunnel syndrome H/O nephrolithotomy with removal of calculi Family History Family History Father No problems noted. Mother Arthritis Brother No problems noted. Brother No problems noted. Sister No problems noted. Sister No problems noted. Sister No problems noted. Sister No problems noted. Son No problems noted. Daughter No problems noted. Surgical History Surgical History (Updated 04/15/23 @ 13:08 by Maite Khan PA-C) H/O hernia repair History of gastric surgery Hx of colonoscopy Hx of lumpectomy H/O cervical discectomy History of Zane-en-Y gastric bypass S/P carpal tunnel release Hx of section S/P knee replacement History of back surgery Social History Social History Household Members: Other Housing: Group Home Alcohol intake: former Patient Tobacco Use Status: Former Tobacco user Quit Date: 2017 service: No Current occupational status: disabled Meds Allergies Allergy/AdvReac Type Severity Reaction Status Date / Time baclofen Allergy Intermediate Swelling Verified 12/28/22 12:34 amoxicillin Allergy Mild yeast Verified 12/28/22 12:34 infection gabapentin AdvReac Mild Swelling Verified 12/28/22 12:34 Meloxicam Allergy Unknown swelling Uncoded 12/28/22 12:34 Active Medications: Current Medications Acetaminophen (Acetaminophen 325 Mg Tablet) 650 mg PO Q6H PRN PRN Reason: Pain, Mild (Pain Scale 1-3) Last Admin: 04/14/23 04:29 Dose: 650 mg Ascorbic Acid (Ascorbic Acid 500 Mg Tablet) 500 mg PO DAILY [facility] Last Admin: 04/15/23 08:42 Dose: 500 mg Bisacodyl (Bisacodyl 10 Mg Supp.Rect) 10 mg [place] DAILY PRN PRN Reason: Constipation Dicyclomine HCl (Dicyclomine Hcl 10 Mg Capsule) 10 mg PO DAILY [facility] Last Admin: 04/15/23 08:43 Dose: 10 mg Enoxaparin Sodium (Enoxaparin Sodium 40 Mg/0.4 Ml Syringe) 40 mg SUBCUT Q24H [facility] Last Admin: 04/15/23 08:43 Dose: 40 mg Fludrocortisone Acetate (Fludrocortisone Acetate 0.1 Mg Tablet) 0.1 mg PO DAILY [facility] Last Admin: 04/15/23 10:34 Dose: Not Given Ceftriaxone Sodium 1 gm/ (Sodium Chloride) 50 mls @ 100 mls/hr IV Q24H [facility] Last Admin: 04/15/23 11:56 Dose: 100 mls/hr Nutrition (Parenteral) (Parenteral Nutrition) 960 mls @ 40 mls/hr IV .Q24H [facility]; Protocol Stop: 04/16/23 11:44 Albumin Human (Kedbumin 25 %) 100 mls @ 100 mls/hr IV Q1H [facility] Stop: 04/15/23 13:59 Sodium Chloride (Ns) 1,000 mls @ 999 mls/hr IV .Q1H1M [facility] Stop: 04/15/23 13:00 Potassium Phosphate (Kphos) 15 mmol in 250 mls @ 62.5 mls/hr IV ONCE ONE Stop: 04/15/23 15:59 Levetiracetam (Levetiracetam 250 Mg Tablet) 250 mg PO BID [facility] Last Admin: 04/15/23 08:42 Dose: 250 mg Magnesium Oxide (Magnesium Oxide 400 Mg Tablet) 400 mg PO DAILY [facility] Last Admin: 04/15/23 08:42 Dose: 400 mg Midodrine (Midodrine Hcl 10 Mg Tablet) 10 mg PO TID [facility] Last Admin: 04/15/23 08:43 Dose: 10 mg Nortriptyline HCl (Nortriptyline Hcl 25 Mg Capsule) 25 mg PO BID [facility] Last Admin: 04/15/23 08:42 Dose: 25 mg Omeprazole (Omeprazole 20 Mg Capsule.Dr) 20 mg PO BID [facility] Last Admin: 04/15/23 08:42 Dose: 20 mg Ondansetron HCl (Ondansetron Hcl 4 Mg/2 Ml Vial) 4 mg IVPUSH Q8H PRN PRN Reason: Nausea and Vomiting Pharmacy Consult (Consult Rx Parenteral Nutrition Ordering) 1 each MISCELLANE DAILY PRN PRN Reason: Consult order Polyethylene Glycol (Polyethylene Glycol 3350 17 Gm Powd.Pack) 17 gm PO DAILY [facility] Last Admin: 04/15/23 08:43 Dose: 17 gm Sodium Bicarbonate (Sodium Bicarbonate 650 Mg Tablet) 650 mg PO TID [facility] Last Admin: 04/15/23 08:42 Dose: 650 mg Sodium Biphosphate/Sodium Phosphate (Sodium Phosphate,[place]-Dibasic 133 Ml Enema) 197 ml [place] DAILY PRN PRN Reason: Constipation Sodium Chloride (0.9 % Sodium Chloride Flush 3 Ml Syringe) 3 ml IVFLUSH QSHIFT [facility] Last Admin: 04/15/23 08:43 Dose: 3 ml Spironolactone (Spironolactone 25 Mg Tablet) 25 mg PO DAILY [facility]; Protocol Last Admin: 04/13/23 09:00 Dose: 25 mg Topiramate (Topiramate 100 Mg Tablet) 100 mg PO BEDTIME [facility] Last Admin: 04/14/23 20:25 Dose: 100 mg Valacyclovir HCl (Valacyclovir Hcl 1,000 Mg Tablet) 1,000 mg PO DAILY [facility] Last Admin: 04/15/23 08:42 Dose: 1,000 mg Vitamin D (Cholecalciferol (Vitamin D3) 25 Mcg Tablet) 25 mcg PO DAILY [facility] Last Admin: 04/15/23 08:42 Dose: 25 mcg Home Medications Medication Instructions Recorded Confirmed Last Taken Type cetirizine 10 mg capsule (Zyrtec) 10 mg PO DAILY 05/27/20 04/12/23 Unknown History cholecalciferol (vitamin D3) 25 25 mcg PO DAILY 06/03/22 04/12/23 Unknown History mcg (1,000 unit) tablet hydroxyzine HCl 25 mg tablet 25 mg PO BEDTIME 06/03/22 04/12/23 Unknown History linaclotide 290 mcg capsule 290 mcg PO DAILY 06/03/22 04/12/23 Unknown History (Linzess) magnesium oxide 400 mg (241.3 mg 400 mg PO DAILY 06/03/22 04/12/23 Unknown History magnesium) tablet melatonin 5 mg tablet 5 mg PO BEDTIME 06/03/22 04/12/23 Unknown History potassium chloride 10 mEq 10 meq PO DAILY 06/03/22 04/12/23 Unknown History tablet,extended release riboflavin (vitamin B2) 100 mg 200 mg PO BEDTIME 06/03/22 04/12/23 Unknown History tablet valacyclovir 1 gram tablet 1,000 mg PO DAILY 06/03/22 04/12/23 Unknown History lurasidone 120 mg tablet (Latuda) 120 mg PO DAILY 07/09/22 04/12/23 Unknown History ascorbic acid (vitamin C) 500 mg 500 mg PO DAILY 08/07/22 04/12/23 Unknown History tablet (Vitamin C) polyethylene glycol 3350 17 17 g PO DAILY 09/25/22 04/12/23 Unknown History gram/dose oral powder acetaminophen 325 mg capsule 650 mg PO Q6H PRN Pain 12/28/22 04/12/23 Unknown History bisacodyl 10 mg rectal suppository 10 mg [place] DAILY PRN Constipation 12/28/22 04/12/23 Unknown History clonazepam 0.5 mg tablet 0.25 mg PO DAILY 12/28/22 04/12/23 Unknown History dicyclomine 10 mg capsule 10 mg PO DAILY 12/28/22 04/12/23 Unknown History levetiracetam 500 mg tablet 500 mg PO BID 12/28/22 04/12/23 Unknown History lubiprostone 8 mcg capsule 8 mcg PO DAILY 12/28/22 04/12/23 Unknown History pantoprazole 40 mg granules 40 mg PO DAILY 12/28/22 04/12/23 Unknown History delayed-release for susp in packet sodium phosphates 19 gram-7 197 ml [place] DAILY PRN Constipation 12/28/22 04/12/23 Unknown History gram/118 mL enema (Fleet Enema) acetazolamide 250 mg tablet 250 mg PO TID 04/12/23 04/12/23 Unknown History midodrine 5 mg tablet 10 mg PO TID 04/12/23 04/12/23 Unknown History nortriptyline 25 mg capsule 25 mg PO BID 04/12/23 04/12/23 Unknown History ondansetron HCl 4 mg tablet 4 mg PO Q8H 04/12/23 04/12/23 Unknown History spironolactone 25 mg tablet 25 mg PO DAILY 04/12/23 04/12/23 Unknown History Physical Exam Vital Signs: Vital Signs: Last Vital Signs Temp 98.1 F 04/15/23 11:26 Pulse 121 H 04/15/23 11:26 Resp 20 04/15/23 11:26 BP 98/78 04/15/23 11:26 Pulse Ox 100 04/15/23 11:26 O2 Del Method Room Air 04/15/23 11:26 BMI result Body Mass Index 21.9 Const: General: cooperative, confusion, ill appearing and lethargic Nutritional Appearance: cachectic and malnourished Orientation/consciousness: confusion and lethargic Limitations: altered mental status (Pt seems confused a times and difficult to understand her speech) HEENT: Mouth: abnormal oral mucosae Teeth and gingiva: poor dentition (with bleeding gums) GI: Inspection: Yes incision (vertical and laparoscopic incisions healed well), No visible herniation and Yes other Palpation (GI): Soft to palpation, nontender, no guarding, not rigid, no hernias and no masses Neuro: General: confusion Psych: Appearance: other (cachectic and depressed) Speech and movement: Slurred speech present and Slowed speech present (Psych) Affect: Blunted affect present Attitude: cooperative Results Results Labs: Short CBC 04/15/23 Range/Units 05:47 WBC 6.3 (4.8-10.8) X10*3/uL Hgb 8.1 L (12.0-16.0) g/dl Hct 22.9 L (37.0-47.0) % Plt Count 123 L (160-400) X10*3/uL BMP 04/15/23 05:47 Sodium 138 Potassium 3.6 Chloride 116 H Carbon Dioxide 18 L BUN 15 Creatinine 0.66 Calcium 7.3 L Liver Function 04/15/23 Range/Units 05:47 Albumin 1.6 L (3.5-5.0) g/dL Urine 04/12/23 Range/Units 21:36 Urine Color Dark Yellow Urine Appearance Cloudy Urine pH 5.5 (5.0-9.0) Ur Specific [place] 1.020 (1.005-1.025) Urine Protein Negative (Neg-Trace) mg/dL Urine Glucose (UA) Negative (Negative) mg/dL Chest x-ray: report reviewed CT scan - chest: report reviewed Assessment and Plan (1) History of Zane-en-Y gastric bypass: Status: Acute 57 yo female s/p GBP in 2019 who was well with regular post op appts in our office until September 2022 when she became anorexic and had severe, acute weight loss without anatomical (post surgical) reasons. Unclear etiology for her acute status change, poor dentition may be from forced emesis or severe malnutrition. She does admit to depressive symptoms and relationship issues with previous boyfriend during this time. [facility] severely malnourished and encephalopathic. I do not believe that her weight of 119 and BMI is accurate, BMI in ED was 18.9 but no weight given. I have ordered another weight today and will need to follow every 3 days while being treated with PPN or TPN. Will need ongoing dietary recommendations from inpatient dietitian. Presently a more appropriate diet order will be purreed soft foods. She claims unable to chew food now due to poor dentition and not from pain or obstructive symptoms when eating. Patient will need aggressive IV nutrition and careful po intake of calorie rich protein supplements before trying solid foods. Lipid panel and vitamin levels ordered today. Patient could benefit from psychiatric consult as she has a therapist and prescriber outpatient, but not recently while in [facility]. We have requested OR records from her 2020 surgery at [facility] and will discuss case with Dr Victor, attending bariatric surgeon. (2) Malnutrition: Status: Acute See above (3) Toxic metabolic encephalopathy: Status: Acute (4) Urinary tract infection: Status: Inactive Urine culture positive, being treated by hospitalist team. Total time managing care of this patient today: 75 minutes. Quality Stroke Does the patient have a stroke diagnosis?: No VTE Prior VTE?: No VTE Risk Level:: Medical - moderate - high VTE Device Contraindication: Treatment Not Indicated VTE Drug Contraindication: N/A - Med Ordered Procedures Date of Service Date of Service: 04/15/23
[2023-04-15] MEDS: Albumin Human 25 % 100 ML IV ×2 (12:52→13:53)
[2023-04-15] MEDS: 0.9 % Sodium Chloride 1,000 ML 999 ML IV (12:52)
--- NOTE | 2023-04-15 13:09 | MHC.SL.SWA ---
Speech Pathologist Impression: Risk of Aspiration Due to: Lethargy Dysphasia Diet Status: Recommend DOWNGRADE current Bariatric 6 diet to GROUND/MECH ALTERED solids (NDD2), thin liquids, and pills whole/crushed with puree. Pt will require 1:1 FEEDING ASSISTANCE at this time, but should be encouraged to self-administered as she progresses. Liquid Consistency and Strategies for Safe Swallow: Liquid Intake Recommendation: Thin Liquid Intake Strategies: Small Sips Solid Food Consistency: Dietary Recommendations: Ground/Mechanical (NDD2) Additional Modifications to Solid Foods: Oral Medication Intake: Whole with Puree Please contact the pharmacy regarding appropriate crushable or liquid drug formulations that are available whenever modified delivery is recommended. Compensatory Strategies and Precautions to be Taken for Safe Swallow: Sitting Upright (90 deg) Liquids from Straw Alternate Liquids/Solids Rate of Ingestion Change Oral Check Supervision While Eating and Drinking for Safe Swallow: Total Supervision (1:1) Foods to Avoid: Mixed consistencies. Swallowing Recommended Treatments: Compens. Strategy Educat. Recommendation for Speech: Inpatient Speech Therapy Comment: Patient placed on Bariatric 6 diet by MD at regular consistencies yesterday. Touched base with MD this morning who reported that this was the recommended diet for her s/p bariatric surgery. Patient was seen at lunch, with Bariatric Nurse present in room. Patient was refusing meal due to consistency: 1/2 a whole roasted chicken breast with blanched broccoli, all uncut, no gravy/sauce. Patient reported to nurse and myself that her dentition is poor, she has difficulty chewing and wanted softer food. Bariatric RN unable to report if consistency of the Bariatric Diet could be adjusted. RESIDENCE DIRECTOR checked Diet order, was able to return diet to Ground/Mechanical (as recommended by RESIDENCE DIRECTOR 04/13/23) continuing with thin liquids. Recommend Patient continue on Ground/Mechanical Altered (NDD2) -Bariatric 6 diet, with thin liquids, pills crushed in puree. , VIANEY notified of downgrade by secure text. Frequency/Duration: Date Range for Service Req: Timeline to reassess: PRN Software Licensing Executive Clinican/Clinical Fellow: No Supervisory Statement: I have reviewed and agree with the student/clinical fellow's documentation: N/A Speech Language Pathologist: Nilsa Holland M.A., CCC-RESIDENCE DIRECTOR
[2023-04-15 13:53] LABS: Cholesterol 119 mg/dL (<200); HDL Cholesterol 29 mg/dL (>40); LDL Cholesterol Calculated 74 mg/dL (<100); Triglycerides 80 mg/dL (<150)
[2023-04-15 14:02] LABS: Vitamin D 25-OH Total 15.5 ng/mL (>30)
[2023-04-15 15:15] VITALS: BP 90/50; PULSE 107; RESP 18; TEMP 37.7
[2023-04-15 15:20] VITALS: BMI 19.0
--- NOTE | 2023-04-15 15:31 | MHC.CLN ---
F/U PT REQUIRES TPN FOR NUTRITION SUPPORT R/T CHRONIC POOR PO AND S/S MALNUTRITION PT CURRENTLY RECEIVING [place]WIN PHASE 6 DIET GRD/MS WITH ENSURE MAX SUPPLEMENT TID PPN INITIATED REVIEWED LABS DISCUSSED WITH PHARMACY RECOMMEND PPN AT 40ML/HR TO PROVIDE 490KCALS, 96G DEXTROSE, 41G PROTEIN REPLETE LYTES NEEDED POSSIBLY PICC LINE TO BE PLACED-CAN SWITCH TO TPN AT THAT TIME SEE ALSO FULL CLINICAL NUTRITION ASSESSMENT DATED 04/15/23
--- NOTE | 2023-04-15 15:44 | P.PNIM_ITS ---
Subjective Subjective Date of Service: 04/15/23 Interval History: lethargic and frail but little better than before low oral intake low BP readings No fever or pain Review of Systems Review of Systems: Yes all other systems are reviewed and are negative Physical Exam 2 Vital Signs: Vital Signs: Last Vital Signs Temp 99.8 F 04/15/23 15:15 Pulse 107 H 04/15/23 15:15 Resp 18 04/15/23 15:15 BP 90/50 L 04/15/23 15:15 Pulse Ox 100 04/15/23 11:26 O2 Del Method Room Air 04/15/23 11:26 BMI result Body Mass Index 19.0 Const: Other: Constitutional : Awake with stimualation, cachetic, weak and lethargic Neck : Normal inspection, Supple Cardiovascular : RRR, no JVP, no lower extremity edema Respiratory : good bilateral air entry, no crackles, wheezes or rhonchi Gastrointestinal: soft, lax, Normal bowel sounds, Non tender Skin : Warm, Dry Neurological : Alert & oriented to place and self, No focal deficit but overall weakness Objective Data Active Medications Acetaminophen (Acetaminophen 325 Mg Tablet) 650 mg PO Q6H PRN PRN Reason: Pain, Mild (Pain Scale 1-3) Last Admin: 04/14/23 04:29 Dose: 650 mg Documented By: SANTIAC Ascorbic Acid (Ascorbic Acid 500 Mg Tablet) 500 mg PO DAILY [facility] Last Admin: 04/15/23 08:42 Dose: 500 mg Documented By: BOBBY Bisacodyl (Bisacodyl 10 Mg Supp.Rect) 10 mg [place] DAILY PRN PRN Reason: Constipation Dicyclomine HCl (Dicyclomine Hcl 10 Mg Capsule) 10 mg PO DAILY [facility] Last Admin: 04/15/23 08:43 Dose: 10 mg Documented By: BOBBY Enoxaparin Sodium (Enoxaparin Sodium 40 Mg/0.4 Ml Syringe) 40 mg SUBCUT Q24H [facility] Last Admin: 04/15/23 08:43 Dose: 40 mg Documented By: BOBBY Fludrocortisone Acetate (Fludrocortisone Acetate 0.1 Mg Tablet) 0.1 mg PO DAILY [facility] Last Admin: 04/15/23 10:34 Dose: Not Given Documented By: BOBBY Non-Admin Reason: Previously Administered Ceftriaxone Sodium 1 gm/ (Sodium Chloride) 50 mls @ 100 mls/hr IV Q24H [facility] Last Infusion: 04/15/23 13:08 Dose: Infused Documented By: BOBBY Nutrition (Parenteral) (Parenteral Nutrition) 960 mls @ 40 mls/hr IV .Q24H [facility]; Protocol Stop: 04/16/23 11:44 Potassium Phosphate (Kphos) 15 mmol in 250 mls @ 62.5 mls/hr IV ONCE ONE Stop: 04/15/23 15:59 Levetiracetam (Levetiracetam 250 Mg Tablet) 250 mg PO BID [facility] Last Admin: 04/15/23 08:42 Dose: 250 mg Documented By: BOBBY Magnesium Oxide (Magnesium Oxide 400 Mg Tablet) 400 mg PO DAILY [facility] Last Admin: 04/15/23 08:42 Dose: 400 mg Documented By: BOBBY Midodrine (Midodrine Hcl 10 Mg Tablet) 10 mg PO TID [facility] Last Admin: 04/15/23 08:43 Dose: 10 mg Documented By: BOBBY Nortriptyline HCl (Nortriptyline Hcl 25 Mg Capsule) 25 mg PO BID [facility] Last Admin: 04/15/23 08:42 Dose: 25 mg Documented By: BOBBY Omeprazole (Omeprazole 20 Mg Capsule.) 20 mg PO BID [facility] Last Admin: 04/15/23 08:42 Dose: 20 mg Documented By: BOBBY Ondansetron HCl (Ondansetron Hcl 4 Mg/2 Ml Vial) 4 mg IVPUSH Q8H PRN PRN Reason: Nausea and Vomiting Pharmacy Consult (Consult Rx Parenteral Nutrition Ordering) 1 each MISCELLANE DAILY PRN PRN Reason: Consult order Polyethylene Glycol (Polyethylene Glycol 3350 17 Gm Powd.Pack) 17 gm PO DAILY [facility] Last Admin: 04/15/23 08:43 Dose: 17 gm Documented By: BOBBY Sodium Bicarbonate (Sodium Bicarbonate 650 Mg Tablet) 650 mg PO TID [facility] Last Admin: 04/15/23 08:42 Dose: 650 mg Documented By: BOBBY Sodium Biphosphate/Sodium Phosphate (Sodium Phosphate,[place]-Dibasic 133 Ml Enema) 197 ml [place] DAILY PRN PRN Reason: Constipation Sodium Chloride (0.9 % Sodium Chloride Flush 3 Ml Syringe) 3 ml IVFLUSH QSHIFT [facility] Last Admin: 04/15/23 08:43 Dose: 3 ml Documented By: BOBBY Spironolactone (Spironolactone 25 Mg Tablet) 25 mg PO DAILY [facility]; Protocol Last Admin: 04/13/23 09:00 Dose: 25 mg Documented By: MENDOZA Topiramate (Topiramate 100 Mg Tablet) 100 mg PO BEDTIME [facility] Last Admin: 04/14/23 20:25 Dose: 100 mg Documented By: PANCHITO Valacyclovir HCl (Valacyclovir Hcl 1,000 Mg Tablet) 1,000 mg PO DAILY [facility] Last Admin: 04/15/23 08:42 Dose: 1,000 mg Documented By: BOBBY Vitamin D (Cholecalciferol (Vitamin D3) 25 Mcg Tablet) 25 mcg PO DAILY [facility] Last Admin: 04/15/23 08:42 Dose: 25 mcg Documented By: BOBBY Labs 04/15/23 05:47 04/15/23 05:47 Labs: Laboratory Results - last 24 hr 04/13/23 04/15/23 04/15/23 01:55 05:47 07:08 MCV 84.2 MCH 29.8 MCHC 35.4 H RDW 17.2 H Plt Count 123 L MPV 11.1 Absolute Nucleated RBC 0.020 H Nucleated RBC % (auto) 0.3 H ESR 2 Anion Gap 8 L Estim Creat Clear Calc 76.2 Estimated GFR > 60 POC Glucose 70 Random Glucose 59 L* Calcium 7.3 L Phosphorus 2.2 L Magnesium 1.7 Lactate Dehydrogenase 185 Albumin 1.6 L Triglycerides Cholesterol LDL Cholesterol, Calc HDL Cholesterol 25-OH Vitamin D Total Prolactin 13.9 04/15/23 13:17 MCV MCH MCHC RDW Plt Count MPV Absolute Nucleated RBC Nucleated RBC % (auto) ESR Anion Gap Estim Creat Clear Calc Estimated GFR POC Glucose Random Glucose Calcium Phosphorus Magnesium Lactate Dehydrogenase Albumin Triglycerides 80 Cholesterol 119 LDL Cholesterol, Calc 74 HDL Cholesterol 29 L 25-OH Vitamin D Total 15.5 L Prolactin Microbiology Microbiology Results: Microbiology 04/12/23 21:04 Blood Culture - Preliminary Blood - Venous No growth after 48 hours. 04/12/23 21:04 Blood Culture - Preliminary Blood - Venous No growth after 48 hours. Assessment and Plan (1) Metabolic acidosis: Status: Acute (2) Toxic metabolic encephalopathy: Status: Acute (3) Acute hypoxemic respiratory failure: Status: Acute Plan 56F PMH gatric bypass, SBOs, hld, depression, DM, migraines, trung, presented with ams and hypoxia acute toxic metabolic encephalopathy 2/2 UTI multifactorial; uti, polypharmacy started Rocephin, Ecoli in urine cultures improved moderate-severe protein calorie malnutrition due to excessive weight loss/malabsorption s/p gastric bypass shoe stitcher Midline to be placed PPN for now encourage PO intake Bariatric surgery eval acute hypoxic respiratory failure unclear etiology, resolved on room air, cxr unremarkable chronic non anion gap metabolic acidosis due to acetozolamide dc azetozolamide, continue oral bicarb, monitor BMP history of DM,TRUNG, htn resolved w weight loss dvt prophylaxis lovenox reason for continued hospitalization overnight to improve mental status and nutritional status pending better tolerance of PO Quality Stroke Does the patient have a stroke diagnosis?: No VTE Prior VTE?: No VTE Risk Level:: Medical - moderate - high VTE Device Contraindication: Treatment Not Indicated VTE Drug Contraindication: N/A - Med Ordered
--- NOTE | 2023-04-15 16:56 | HO.MIDLINE ---
Midline Insertion MIDLINE INSERTION Diagnosis: MALNUTRITION Indication: PPN Pertinent Labs: REVIEWED Technique: Using sterile technique including cap and mask, glove and drape, the Right arm was prepped and draped in the usual sterile fashion of full barrier technique with G. Using ultrasound guidance, RIGHT BASILIC VEIN vein access was obtained X2. 13LB1IM NON-PASV POWERGLIDE ST MIDLINE was positioned. The procedure was performed in 272. Ultrasound was used to document vein patency and for needle entry. A formal ultrasound picture was recorded. Vascular Area Counselor has released the line for use and it is currently dressed with a StatLock, Tegaderm, and CHG disc. Verification has been performed for blood return and line patency. Arm Circumference: 23.5CM Equipment: POWERGLIDE ST MIDLINE Catheter Type: [id number] ST MIDLINE Lot #: [id number]
[2023-04-15] MEDS: Potassium Phosphate/NS 15 MMOL/250 ML PLAST..BAG 62.5 MMOL IV (17:54)
[2023-04-15 19:56] VITALS: BP 80/58; PULSE 99; RESP 16; TEMP 36.4; O2SAT 100
[2023-04-15] MEDS: Topiramate 100 MG TABLET PO (20:18)
[2023-04-15] MEDS: Parenteral Nutrition 960 ML 40 ML IV (22:17)
[2023-04-15 23:36] VITALS: PULSE 102; RESP 20; TEMP 36.1; O2SAT 100
[2023-04-16] VITALS (10 sets, daily range): BP systolic 97–116; BP diastolic 56–80; PULSE 96–105; RESP 16–20; TEMP 36.1–37.7; O2SAT 96–100
[2023-04-16] MEDS: Acetaminophen 325 MG TABLET 650 MG PO ×3 (00:37→22:05)
[2023-04-16] MEDS: 0.9 % Sodium Chloride Flush 10 ML SYRINGE 5 ML IVFLUSH ×3 (00:38→22:07)
[2023-04-16 06:49] LABS: Mean Corpuscular HGB Conc 34.3 g/dl (31.0-35.0); Mean Corpuscular Hemoglobin 29.8 pg (27.0-33.0); Mean Corpuscular Volume 86.8 fL (80.0-98.0); Mean Platelet Volume 10.1 fL (9.4-12.3); Platelet Count 101 X10*3/uL (160-400); Red Blood Count 2.28 X10*6/uL (4.20-5.50); Red Cell Distribution Width 17.5 % (11.0-16.0); White Blood Count 4.6 X10*3/uL (4.8-10.8)
[2023-04-16 07:00] LABS: Alanine Aminotransferase 16 U/L (0-31); Albumin Level 2.2 g/dL (3.5-5.0); Alkaline Phosphatase 123 U/L (39-117); Anion Gap 8 (12-20); Aspartate Amino Transferase 15 U/L (5-31); Bilirubin Direct 0.3 mg/dL (0.0-0.5); Bilirubin Total 0.4 mg/dL (0.0-1.0); Blood Urea Nitrogen 11 mg/dL (9-16); Calcium 7.7 mg/dL (8.4-10.2); Carbon Dioxide 22 mmol/L (22-29); Chloride 117 mmol/L (96-108); Creatinine Clr Calc Pharmacy 68.6; Estimated Glomerular Filt Rate > 60; Glucose Random 82 mg/dL (60-115); Phosphorus 2.4 mg/dL (2.7-4.5); Potassium 3.8 mmol/L (3.3-5.1); Sodium 143 mmol/L (135-145)
[2023-04-16 07:07] LABS: Hemoglobin 6.8 g/dl (12.0-16.0)
[2023-04-16 07:08] LABS: Hematocrit 19.8 % (37.0-47.0)
[2023-04-16 08:54] LABS: Immature Retic Fraction 20.8 % (3.0-15.9); Retic HGB Equivalent 33.7 pg (30.0-35.0); Reticulocyte Percent 1.5 % (0.5-1.8); Reticulocytes Absolute 0.036 X10*6/uL (0.026-0.095)
--- NOTE | 2023-04-16 08:56 | PM.HEMONCCN ---
Subjective - Subjective Chief complaint: Generalized weakness, abdominal discomfort Patient: new to practice Consult date: 04/16/23 Requesting Physician: Dr Myers Primary Care Provider: Carri Reynoso MD HPI - Consult Narrative Reason for consult: Anemia /pancytopenia Narrative: Yaneth Ware is a 57 year old female with a history of gastric bypass surgery, small-bowel obstruction, obstructive sleep apnea and diabetes who is currently admitted for near syncope. As per chart, patient was found with altered mentation and had a near fall at home. She was brought to emergency department, initial evaluation revealed hypoxemia with pulse ox in the low 80s. CT angiogram was negative for PE or any acute findings. Blood work showed metabolic acidosis with low albumin. Admission her hemoglobin was 9.8 gram/dL with platelets of 132 K, after receiving hydration for a few days and as well as receiving TPN, her hemoglobin dropped to 6.8 gram/dL. Her baseline hemoglobin is between 9-10 gram/dL. She reports 150 lb weight loss since her weight loss surgery in 2019. She states that she has no appetite at all and has been feeling very weak and tired all the time. She reports abdominal discomfort as well as pain in both her legs. No recent fever or chills. Review of Systems - Constitutional Reports as per HPI, Reports fatigue, Reports lack of energy, Reports malaise, Reports weight loss - Cardiovascular Reports no additional cardiovascular complaints - Respiratory Reports no additional respiratory complaints - Neurologic Reports abnormal gait, Reports confusion, Reports weakness PMFSH Medical History: Medical History (Last Reviewed 04/13/23 @ 01:55 by Kiley Myers MD) Anxiety Arthritis Back pain Carpal tunnel syndrome Excess skin of upper extremity H/O nephrolithotomy with removal of calculi History of lipoma Hypercholesterolemia Internal hernia Lipoma Lymphedema Migraines Sleep apnea with use of continuous positive airway pressure (CPAP) Type 2 diabetes mellitus Family History: Family History (Last Reviewed 04/13/23 @ 01:55 by Kiley Myers MD) Father No problems noted. Mother Arthritis Brother No problems noted. Brother No problems noted. Sister No problems noted. Sister No problems noted. Sister No problems noted. Sister No problems noted. Son No problems noted. Daughter No problems noted. Surgical History: Surgical History (Last Updated 04/15/23 @ 13:08 by Maite Khan PA-C) H/O cervical discectomy H/O hernia repair History of back surgery History of gastric surgery History of Zane-en-Y gastric bypass Hx of section Hx of colonoscopy Hx of lumpectomy S/P carpal tunnel release S/P knee replacement Social History: Social History (Last Reviewed 04/13/23 @ 01:55 by Kiley Myers MD) Living Situation History: Household Members: Other Housing: Long-Term Tobacco History: Patient Tobacco Use Status: Former Tobacco user Smoke Quit Date: 2017 Occupation Assessmet: service: No Current occupational status: disabled Home Medications and Allergies Current Medications: Current Medications Acetaminophen (Acetaminophen 325 Mg Tablet) 650 mg PO Q6H PRN PRN Reason: Pain, Mild (Pain Scale 1-3) Last Admin: 04/16/23 06:54 Dose: 650 mg Ascorbic Acid (Ascorbic Acid 500 Mg Tablet) 500 mg PO DAILY [facility] Last Admin: 04/15/23 08:42 Dose: 500 mg Bisacodyl (Bisacodyl 10 Mg Supp.Rect) [address] DAILY PRN PRN Reason: Constipation Dicyclomine HCl (Dicyclomine Hcl 10 Mg Capsule) 10 mg PO DAILY [facility] Last Admin: 04/15/23 08:43 Dose: 10 mg Fludrocortisone Acetate (Fludrocortisone Acetate 0.1 Mg Tablet) 0.1 mg PO DAILY [facility] Last Admin: 04/15/23 10:34 Dose: Not Given Ceftriaxone Sodium 1 gm/ (Sodium Chloride) 50 mls @ 100 mls/hr IV Q24H [facility] Last Infusion: 04/15/23 13:08 Dose: Infused Nutrition (Parenteral) (Parenteral Nutrition) 960 mls @ 40 mls/hr IV .Q24H [facility]; Protocol Stop: 04/16/23 20:59 Last Admin: 04/15/23 22:17 Dose: 40 mls/hr Levetiracetam (Levetiracetam 250 Mg Tablet) 250 mg PO BID [facility] Last Admin: 04/15/23 20:18 Dose: 250 mg Magnesium Oxide (Magnesium Oxide 400 Mg Tablet) 400 mg PO DAILY [facility] Last Admin: 04/15/23 08:42 Dose: 400 mg Midodrine (Midodrine Hcl 10 Mg Tablet) 10 mg PO TID [facility] Last Admin: 04/15/23 20:18 Dose: 10 mg Nortriptyline HCl (Nortriptyline Hcl 25 Mg Capsule) 25 mg PO BID [facility] Last Admin: 04/15/23 20:18 Dose: 25 mg Ondansetron HCl (Ondansetron Hcl 4 Mg/2 Ml Vial) 4 mg IVPUSH Q8H PRN PRN Reason: Nausea and Vomiting Pantoprazole Sodium (Pantoprazole Sodium 40 Mg/10 Ml Vial) 40 mg IVPUSH BID@0630,1630 [facility] Pharmacy Consult (Consult Rx Parenteral Nutrition Ordering) 1 each MISCELLANE DAILY PRN PRN Reason: Consult order Polyethylene Glycol (Polyethylene Glycol 3350 17 Gm Powd.Pack) 17 gm PO DAILY [facility] Last Admin: 04/15/23 08:43 Dose: 17 gm Sodium Biphosphate/Sodium Phosphate (Sodium Phosphate,[place]-Dibasic 133 Ml Enema) [address] DAILY PRN PRN Reason: Constipation Sodium Chloride (0.9 % Sodium Chloride Flush 3 Ml Syringe) 3 ml IVFLUSH QSHIFT [facility] Last Admin: 04/15/23 22:34 Dose: 3 ml Sodium Chloride (0.9 % Sodium Chloride Flush 10 Ml Syringe) 5 ml IVFLUSH TID [facility] Last Admin: 04/16/23 00:38 Dose: 5 ml Spironolactone (Spironolactone 25 Mg Tablet) 25 mg PO DAILY [facility]; Protocol Last Admin: 04/13/23 09:00 Dose: 25 mg Topiramate (Topiramate 100 Mg Tablet) 100 mg PO BEDTIME [facility] Last Admin: 04/15/23 20:18 Dose: 100 mg Valacyclovir HCl (Valacyclovir Hcl 1,000 Mg Tablet) 1,000 mg PO DAILY [facility] Last Admin: 04/15/23 08:42 Dose: 1,000 mg Vitamin D (Cholecalciferol (Vitamin D3) 25 Mcg Tablet) 25 mcg PO DAILY [facility] Last Admin: 04/15/23 08:42 Dose: 25 mcg Home Medications Medication Instructions Recorded Confirmed Type cetirizine 10 mg capsule (Zyrtec) 10 mg PO DAILY 05/27/20 04/12/23 History cholecalciferol (vitamin D3) 25 25 mcg PO DAILY 06/03/22 04/12/23 History mcg (1,000 unit) tablet hydroxyzine HCl 25 mg tablet 25 mg PO BEDTIME 06/03/22 04/12/23 History linaclotide 290 mcg capsule 290 mcg PO DAILY 06/03/22 04/12/23 History (Linzess) magnesium oxide 400 mg (241.3 mg 400 mg PO DAILY 06/03/22 04/12/23 History magnesium) tablet melatonin 5 mg tablet 5 mg PO BEDTIME 06/03/22 04/12/23 History potassium chloride 10 mEq 10 meq PO DAILY 06/03/22 04/12/23 History tablet,extended release riboflavin (vitamin B2) 100 mg 200 mg PO BEDTIME 06/03/22 04/12/23 History tablet valacyclovir 1 gram tablet 1,000 mg PO DAILY 06/03/22 04/12/23 History lurasidone 120 mg tablet (Latuda) 120 mg PO DAILY 07/09/22 04/12/23 History ascorbic acid (vitamin C) 500 mg 500 mg PO DAILY 08/07/22 04/12/23 History tablet (Vitamin C) polyethylene glycol 3350 17 17 g PO DAILY 09/25/22 04/12/23 History gram/dose oral powder acetaminophen 325 mg capsule 650 mg PO Q6H PRN Pain 12/28/22 04/12/23 History bisacodyl 10 mg rectal suppository [address] DAILY PRN Constipation 12/28/22 04/12/23 History clonazepam 0.5 mg tablet 0.25 mg PO DAILY 12/28/22 04/12/23 History dicyclomine 10 mg capsule 10 mg PO DAILY 12/28/22 04/12/23 History levetiracetam 500 mg tablet 500 mg PO BID 12/28/22 04/12/23 History lubiprostone 8 mcg capsule 8 mcg PO DAILY 12/28/22 04/12/23 History pantoprazole 40 mg granules 40 mg PO DAILY 12/28/22 04/12/23 History delayed-release for susp in packet sodium phosphates 19 gram-[address] DAILY PRN Constipation 12/28/22 04/12/23 History gram/118 mL enema (Fleet Enema) acetazolamide 250 mg tablet 250 mg PO TID 04/12/23 04/12/23 History midodrine 5 mg tablet 10 mg PO TID 04/12/23 04/12/23 History nortriptyline 25 mg capsule 25 mg PO BID 04/12/23 04/12/23 History ondansetron HCl 4 mg tablet 4 mg PO Q8H 04/12/23 04/12/23 History spironolactone 25 mg tablet 25 mg PO DAILY 04/12/23 04/12/23 History Allergies Allergy/AdvReac Type Severity Reaction Status Date / Time baclofen Allergy Intermediate Swelling Verified 12/28/22 12:34 amoxicillin Allergy Mild yeast Verified 12/28/22 12:34 infection gabapentin AdvReac Mild Swelling Verified 12/28/22 12:34 Meloxicam Allergy Unknown swelling Uncoded 12/28/22 12:34 Physical Exam Vital signs: Vital Signs Temp 99.8 F 04/16/23 08:00 Pulse 103 H 04/16/23 08:00 Resp 20 04/16/23 08:00 BP 116/56 L 04/16/23 08:00 Pulse Ox 97 04/16/23 08:00 O2 Del Method Room Air 04/16/23 08:00 Intake & Output 04/15/23 04/16/23 04/16/23 18:59 06:59 18:59 Intake Total 2322 / 2632 310 / 2632 Balance 2322 / 2632 310 / 2632 Intake: Intake, Oral Amount 360 / 420 60 / 420 Intake, IV Amount 1962 / 2212 250 / 2212 0.9 % Sodium Chloride 1,000 ml 1000 / 1000 @ 999 mls/hr IV .Q1H1M [facility] Rx#: [id number] Albumin Human 25 % 100 ml @ 100 200 / 200 mls/hr IV Q1H [facility] Rx#: [id number] Potassium Phosphate/NS 15 mmol 250 / 250 In 250 ml @ 62.5 mls/hr IV ONCE ONE Rx#:[id number] cefTRIAXone sodium 1 gm In 0.9 50 / 50 % Sodium Chloride 50 ml @ 100 mls/hr IV Q24H [facility] Rx#: [id number] Lactated Ringers 1,000 ml @ 80 712 / 712 mls/hr IVCONT .[id number] [facility] Rx#: [id number] Other: Breakfast % Eaten 0% Lunch % Eaten 0% Dinner % Eaten 0% Number of Incontinent Voids 1 1 Number of Unmeasured Voids 2 Number of Bowel Movements 0 Urine Color Concentrated Weight 47.2 kg Weight 47.2 kg - Constitutional Present: mild distress, chronically ill appearing - Routine HEENT Exam Eye: Present: normal appearance, PERRL - Routine Neck Exam Absent: lymphadenopathy - Routine Respiratory Exam Absent: respiratory distress - Routine Cardiovascular Exam Cardiovascular: Present: S1, S2 - Routine Abdominal Exam Present: tenderness Hem/Onc Consult Result - Labs CBC & Chem 7: 04/16/23 05:42 04/16/23 05:42 Labs: Short CBC 04/16/23 Range/Units 05:42 WBC 4.6 L (4.8-10.8) X10*3/uL Hgb 6.8 L* (12.0-16.0) g/dl Hct 19.8 L* (37.0-47.0) % Plt Count 101 L (160-400) X10*3/uL BMP 04/16/23 05:42 Sodium 143 Potassium 3.8 Chloride 117 H Carbon Dioxide 22 BUN 11 Creatinine 0.69 Calcium 7.7 L Liver Function 04/15/23 04/16/23 Range/Units 05:47 05:42 Total Bilirubin 0.4 (0.0-1.0) mg/dL Direct Bilirubin 0.3 (0.0-0.5) mg/dL AST 15 (5-31) U/L ALT 16 (0-31) U/L Alkaline Phosphatase 123 H (39-117) U/L Albumin 1.6 L 2.2 L (3.5-5.0) g/dL Assessment and Plan Patient Active problem list reviewed?: Yes (1) Acute on chronic anemia Status: Acute Assessment and plan: 1. This is a 57-year-old woman who is admitted for metabolic encephalopathy secondary to UTI and polypharmacy was noted to have worsening acute on chronic anemia. Since her gastric bypass surgery in 2019, she lost over 150 lb. She has chronic anemia, her baseline is between 9-10 gram/dL. In fact, she had a bone marrow biopsy in 2006 for anemia, hemoglobin back then was around 10 gram/dL. Bone marrow exam was normal. This acute drop in hemoglobin is probably dilutional. She has multifactorial reasons for anemia including malnutrition. She does not have any obvious hematinic deficiencies. CT angio of chest does not show any acute findings, I have recommended a CT abdomen/pelvis with contrast to rule out any underlying malignancy as a cause of her anemia and weight loss. There is no evidence of chronic kidney or liver disease. She has reticulocytopenia/leukopenia and thrombocytopenia which is probably related to her nutritional status. Consider HIV and hepatitis serologies if not done previously. LDH is mildly elevated. She appears slightly jaundiced. She could be developing hemolytic anemia secondary to antibiotics as well. Please monitor daily CBC, LDH and bilirubin in addition to other labs. I thank you for this consult, will follow with you. - Time Spent With Patient Time Spent with Patient (in minutes): 20
[2023-04-16] MEDS: 0.9 % Sodium Chloride Flush 3 ML SYRINGE IVFLUSH ×3 (09:02→16:28)
[2023-04-16] MEDS: valACYclovir HCL 1,000 MG TABLET 1000 MG PO (09:03)
[2023-04-16] MEDS: polyethylene glycoL 3350 17 GM POWD.PACK PO (09:03)
[2023-04-16] MEDS: Midodrine HCl 10 MG TABLET PO ×3 (09:03→22:05)
[2023-04-16] MEDS: Magnesium Oxide 400 MG TABLET PO (09:03)
[2023-04-16] MEDS: Pantoprazole Sodium 40 MG/10 ML VIAL IVPUSH ×2 (09:03→16:28)
[2023-04-16] MEDS: Fludrocortisone Acetate 0.1 MG TABLET PO (09:03)
[2023-04-16] MEDS: Cholecalciferol (Vitamin D3) 25 MCG TABLET PO (09:04)
[2023-04-16] MEDS: levETIRAcetam 250 MG TABLET PO ×2 (09:04→21:55)
[2023-04-16] MEDS: Dicyclomine HCl 10 MG CAPSULE PO (09:04)
[2023-04-16] MEDS: Ascorbic Acid 500 MG TABLET PO (09:04)
[2023-04-16] MEDS: Nortriptyline HCl 25 MG CAPSULE PO ×2 (09:04→22:05)
[2023-04-16 09:22] LABS: Iron 54 mcg/dL (30-160); Lactate Dehydrogenase 323 U/L (122-220); Percent Iron Saturation 68 % (15-50); Total Iron Binding Capacity 79 mcg/dL (228-428); Unsaturated Iron Binding < 25 ug/dL
[2023-04-16 09:27] LABS: Ferritin 445 ng/mL (10-250)
[2023-04-16 09:40] LABS: Folate 6.1 ng/mL (> or = 4.0); Vitamin B12 1139 pg/mL (200-900)
--- NOTE | 2023-04-16 09:49 | P.PNIM_ITS ---
Subjective Subjective Date of Service: 04/16/23 Interval History: Looks more alert and interactive feels little better Hb dropped to 6.8 No evidence of bleeding not eating much yet Review of Systems Review of Systems: Yes all other systems are reviewed and are negative Physical Exam 2 Vital Signs: Vital Signs: Last Vital Signs Temp 99.8 F 04/16/23 08:00 Pulse 103 H 04/16/23 08:00 Resp 20 04/16/23 08:00 BP 116/56 L 04/16/23 08:00 Pulse Ox 97 04/16/23 08:00 O2 Del Method Room Air 04/16/23 08:00 BMI result Body Mass Index 19.0 Const: Other: Constitutional : Awake with stimualation, cachetic, weak and lethargic Neck : Normal inspection, Supple Cardiovascular : RRR, no JVP, no lower extremity edema Respiratory : good bilateral air entry, no crackles, wheezes or rhonchi Gastrointestinal: soft, lax, Normal bowel sounds, Non tender Skin : Warm, Dry Neurological : Alert & oriented to place and self, No focal deficit but overall weakness Objective Data Active Medications Acetaminophen (Acetaminophen 325 Mg Tablet) 650 mg PO Q6H PRN PRN Reason: Pain, Mild (Pain Scale 1-3) Last Admin: 04/16/23 06:54 Dose: 650 mg Documented By: PACO Ascorbic Acid (Ascorbic Acid 500 Mg Tablet) 500 mg PO DAILY [facility] Last Admin: 04/16/23 09:04 Dose: 500 mg Documented By: MILA Bisacodyl (Bisacodyl 10 Mg Supp.Rect) 10 mg [place] DAILY PRN PRN Reason: Constipation Dicyclomine HCl (Dicyclomine Hcl 10 Mg Capsule) 10 mg PO DAILY [facility] Last Admin: 04/16/23 09:04 Dose: 10 mg Documented By: MILA Fludrocortisone Acetate (Fludrocortisone Acetate 0.1 Mg Tablet) 0.1 mg PO DAILY [facility] Last Admin: 04/16/23 09:03 Dose: 0.1 mg Documented By: MILA Ceftriaxone Sodium 1 gm/ (Sodium Chloride) 50 mls @ 100 mls/hr IV Q24H [facility] Last Infusion: 04/15/23 13:08 Dose: Infused Documented By: MAVISB Nutrition (Parenteral) (Parenteral Nutrition) 960 mls @ 40 mls/hr IV .Q24H [facility]; Protocol Stop: 04/16/23 20:59 Last Admin: 04/15/23 22:17 Dose: 40 mls/hr Documented By: PACO Levetiracetam (Levetiracetam 250 Mg Tablet) 250 mg PO BID [facility] Last Admin: 04/16/23 09:04 Dose: 250 mg Documented By: MILA Magnesium Oxide (Magnesium Oxide 400 Mg Tablet) 400 mg PO DAILY [facility] Last Admin: 04/16/23 09:03 Dose: 400 mg Documented By: MILA Midodrine (Midodrine Hcl 10 Mg Tablet) 10 mg PO TID [facility] Last Admin: 04/16/23 09:03 Dose: 10 mg Documented By: MILA Nortriptyline HCl (Nortriptyline Hcl 25 Mg Capsule) 25 mg PO BID [facility] Last Admin: 04/16/23 09:04 Dose: 25 mg Documented By: MILA Ondansetron HCl (Ondansetron Hcl 4 Mg/2 Ml Vial) 4 mg IVPUSH Q8H PRN PRN Reason: Nausea and Vomiting Pantoprazole Sodium (Pantoprazole Sodium 40 Mg/10 Ml Vial) 40 mg IVPUSH BID@0630,1630 [facility] Last Admin: 04/16/23 09:03 Dose: 40 mg Documented By: MILA Pharmacy Consult (Consult Rx Parenteral Nutrition Ordering) 1 each MISCELLANE DAILY PRN PRN Reason: Consult order Polyethylene Glycol (Polyethylene Glycol 3350 17 Gm Powd.Pack) 17 gm PO DAILY [facility] Last Admin: 04/16/23 09:03 Dose: 17 gm Documented By: MILA Sodium Biphosphate/Sodium Phosphate (Sodium Phosphate,[place]-Dibasic 133 Ml Enema) 197 ml [place] DAILY PRN PRN Reason: Constipation Sodium Chloride (0.9 % Sodium Chloride Flush 3 Ml Syringe) 3 ml IVFLUSH QSHIFT [facility] Last Admin: 04/16/23 09:02 Dose: 3 ml Documented By: MILA Sodium Chloride (0.9 % Sodium Chloride Flush 10 Ml Syringe) 5 ml IVFLUSH TID [facility] Last Admin: 04/16/23 09:04 Dose: 5 ml Documented By: MILA Spironolactone (Spironolactone 25 Mg Tablet) 25 mg PO DAILY [facility]; Protocol Last Admin: 04/13/23 09:00 Dose: 25 mg Documented By: MENDOZA Topiramate (Topiramate 100 Mg Tablet) 100 mg PO BEDTIME [facility] Last Admin: 04/15/23 20:18 Dose: 100 mg Documented By: PACO Valacyclovir HCl (Valacyclovir Hcl 1,000 Mg Tablet) 1,000 mg PO DAILY [facility] Last Admin: 04/16/23 09:03 Dose: 1,000 mg Documented By: MILA Vitamin D (Cholecalciferol (Vitamin D3) 25 Mcg Tablet) 25 mcg PO DAILY [facility] Last Admin: 04/16/23 09:04 Dose: 25 mcg Documented By: MILA Labs 04/16/23 05:42 04/16/23 05:42 Labs: Laboratory Results - last 24 hr 04/15/23 04/15/23 04/16/23 05:47 13:17 05:42 MCV 86.8 MCH 29.8 MCHC 34.3 RDW 17.5 H Plt Count 101 L MPV 10.1 Absolute Nucleated RBC 0.000 Nucleated RBC % (auto) 0.0 Absolute Retic Percent Retic Immature Retic Fraction Retic Hgb Equivalent Anion Gap 8 L Estim Creat Clear Calc 68.6 Estimated GFR > 60 Random Glucose 82 Calcium 7.7 L Phosphorus 2.2 L 2.4 L Magnesium 1.7 2.0 Iron TIBC % Saturation Unsat Iron Binding Ferritin Total Bilirubin 0.4 Direct Bilirubin 0.3 AST 15 ALT 16 Alkaline Phosphatase 123 H Lactate Dehydrogenase Total Protein 4.0 L Albumin 1.6 L 2.2 L Triglycerides 80 Cholesterol 119 LDL Cholesterol, Calc 74 HDL Cholesterol 29 L Vitamin B12 25-OH Vitamin D Total 15.5 L Folate Blood Type Antibody Screen Crossmatch 04/16/23 08:28 MCV MCH MCHC RDW Plt Count MPV Absolute Nucleated RBC Nucleated RBC % (auto) Absolute Retic 0.036 Percent Retic 1.5 Immature Retic Fraction 20.8 H Retic Hgb Equivalent 33.7 Anion Gap Estim Creat Clear Calc Estimated GFR Random Glucose Calcium Phosphorus Magnesium Iron 54 TIBC 79 L % Saturation 68 H Unsat Iron Binding < 25 Ferritin 445 H Total Bilirubin Direct Bilirubin AST ALT Alkaline Phosphatase Lactate Dehydrogenase 323 H Total Protein Albumin Triglycerides Cholesterol LDL Cholesterol, Calc HDL Cholesterol Vitamin B12 1139 H 25-OH Vitamin D Total Folate 6.1 Blood Type O Positive Antibody Screen NEGATIVE Crossmatch See Detail Assessment and Plan (1) Metabolic acidosis: Status: Acute (2) Toxic metabolic encephalopathy: Status: Acute (3) Acute hypoxemic respiratory failure: Status: Acute (4) Acute on chronic anemia: Status: Acute Plan 56F PMH gatric bypass, SBOs, hld, depression, DM, migraines, trung, presented with ams and hypoxia Acute on chronic anemia No evidence of bleeding, check occult could be dilutional as she was significantly dehydrated to give 2 units of blood follow H&H Pancytopenia likely from malnutrition Hematology nithya Multivitamins acute toxic metabolic encephalopathy 2/2 UTI, polypharmacy improved IV Rocephin, Ecoli in urine cultures moderate-severe protein calorie malnutrition due to excessive weight loss/malabsorption s/p gastric bypass syruper Midline to be placed PPN for now encourage PO intake Bariatric surgery eval acute hypoxic respiratory failure unclear etiology, resolved on room air, cxr unremarkable chronic non anion gap metabolic acidosis due to acetozolamide dc azetozolamide, continue oral bicarb, monitor BMP history of DM,TRUNG, htn resolved w weight loss dvt prophylaxis lovenox reason for continued hospitalization overnight to improve mental status and nutritional status pending better tolerance of PO Quality Stroke Does the patient have a stroke diagnosis?: No VTE Prior VTE?: No VTE Risk Level:: Medical - moderate - high VTE Device Contraindication: Treatment Not Indicated VTE Drug Contraindication: N/A - Med Ordered
--- NOTE | 2023-04-16 10:22 | MHC.CM.PN ---
Addendum entered by Leslie Garcia 04/16/23 10:26: UPDATES SENT TO [facility]IA [facility] Original Note: PER MD ROUNDS, PT NOT READY TO DC AND EXPECTED TO BE HERE UNTIL WEDNESDAY DCP: RETURN TO [facility] TO COMPLETE STR VIA BLS (+BED HOLD)
--- NOTE | 2023-04-16 10:50 | MHC.CLN ---
F/U PT REQUIRES PPN FOR NUTRITION SUPPORT R/T CHRONIC POOR PO AND S/S MALNUTRITION. PT CURRENTLY RECEIVING LUDWIN PHASE 6 DIET GRD/MS WITH ENSURE MAX SUPPLEMENT TID. REVIEWED LABS. DISCUSSED WITH PHARMACY. DAY 2 (04/16/23): RECOMMEND INCREASE PPN TO 60ML/HR TO PROVIDE 734KCALS, 144G DEXTROSE, 61G PROTEIN REPLETE LYTES NEEDED. DAY 3 (04/17/23): RECOMMEND ADVANCE TO MAX GOAL RATE ABLE. PPN AT 70ML/HR, ADD 56 G LIPIDS (1.19 G/KG), TO PROVIDE 1417 KCALS (30 KCALS/KG), 168 G DEXTROSE, 71 G PROTEIN (1.5 G/KG). REPLETE LYTES NEEDED. MONITOR LABS AND PO INTAKE.
[2023-04-16] MEDS: cefTRIAXone sodium 1 GM in 0.9 % Sodium Chloride 50 ML IV (11:25)
[2023-04-16] MEDS: Lactulose 20 GM/30 ML SOLUTION PO ×2 (11:25→22:06)
[2023-04-16] MEDS: Multivitamin TABLET 1 TAB PO (11:25)
--- NOTE | 2023-04-16 13:15 | MHC.SL.SWA ---
Speech Pathologist Impression:Risk of aspiration, oral phase dysphagia Risk of Aspiration Due to: Lethargy Dysphasia Diet Status: Pt is on Bariatric 6 diet, recommend continue w/ consistencies GROUND/MECH ALTERED solids (NDD2), thin liquids, and pills whole/crushed with puree. Pt will require 1:1 FEEDING ASSISTANCE at this time, but should be encouraged to self-administered as she progresses. Liquid Consistency and Strategies for Safe Swallow: Liquid Intake Recommendation: Thin Liquid Intake Strategies: Small Sips Solid Food Consistency: Dietary Recommendations: Grnd/Mech Altered (NDD2) Oral Medication Intake: Crushed with Puree Please contact the pharmacy regarding appropriate crushable or liquid drug formulations that are available whenever modified delivery is recommended. Compensatory Strategies and Precautions to be Taken for Safe Swallow: Sitting Upright (90 deg) Double Swallow Alternate Liquids/Solids Rate of Ingestion Change Oral Check Avoid Specific Foods Supervision While Eating and Drinking for Safe Swallow: Total Supervision (1:1) Foods to Avoid: Mixed consistencies. Swallowing Recommended Treatments: Compens. Strategy Educat. Recommendation for Speech: Inpatient Speech Therapy Comment: Recommend Pt initiate diet of GROUND/MECH ALTERED SOLIDS (NDD2) and THIN LIQUIDS. Medications WHOLE with PUREE, as tolerated. Pt will require 1:1 FEEDING ASSISTANCE at this time, but should be encouraged to self-administered as she progresses. FORESTRY SUPERVISOR will continue to follow. Frequency/Duration: Date Range for Service Req: Timeline to reassess: PRN Field Operator Clinican/Clinical Fellow: No Supervisory Statement: I have reviewed and agree with the student/clinical fellow's documentation: N/A Speech Language Pathologist: Fara Chambers M.A., CCC-FORESTRY SUPERVISOR
[2023-04-16] MEDS: iohexoL 350 MG/ML 100 ML INFUS..BTL IV (17:04)
--- NOTE | 2023-04-16 18:22 | PM.PNGS ---
Subjective Subjective Date of Service: 04/16/23 Interval history: This is a 57 year old female who had gastric bypass surgery by Dr. Escamilla. The patient had presented with a partial SBO/internal hiatal hernia which resolved spontaneously. I had performed an upper endoscopy then which was normal. The patient has been following in the office with last appointment being in 09/2022 with a BMi of 22.1 and a weight of 122lbs. Over the summer it appears that she had an open exploration at [facility]. It is unclear what she had and the records have been requested. The patient denies any abdominal pain but she stated to me that her appetite has reduced since that operation. Physical Exam Vital Signs: Vital Signs: Last Vital Signs Temp 98.2 F 04/16/23 17:38 Pulse 96 04/16/23 17:38 Resp 16 04/16/23 17:38 BP 116/71 04/16/23 17:38 Pulse Ox 100 04/16/23 16:00 O2 Del Method Room Air 04/16/23 16:00 BMI result Body Mass Index 19.0 Const: General: cooperative, ill appearing, lethargic and tired appearing Nutritional Appearance: malnourished Orientation/consciousness: lethargic GI: Inspection: Yes incision (upper midline incision) and Yes scaphoid Palpation (GI): Soft to palpation and Other GI palpation findings present (no abdominal tenderness) Objective Data Active Medications Acetaminophen (Acetaminophen 325 Mg Tablet) 650 mg PO Q6H PRN PRN Reason: Pain, Mild (Pain Scale 1-3) Last Admin: 04/16/23 06:54 Dose: 650 mg Documented By: PACO Ascorbic Acid (Ascorbic Acid 500 Mg Tablet) 500 mg PO DAILY [facility] Last Admin: 04/16/23 09:04 Dose: 500 mg Documented By: MILA Bisacodyl (Bisacodyl 10 Mg Supp.Rect) 10 mg RI DAILY PRN PRN Reason: Constipation Dicyclomine HCl (Dicyclomine Hcl 10 Mg Capsule) 10 mg PO DAILY [facility] Last Admin: 04/16/23 09:04 Dose: 10 mg Documented By: MILA Fludrocortisone Acetate (Fludrocortisone Acetate 0.1 Mg Tablet) 0.1 mg PO DAILY [facility] Last Admin: 04/16/23 09:03 Dose: 0.1 mg Documented By: MILA Ceftriaxone Sodium 1 gm/ (Sodium Chloride) 50 mls @ 100 mls/hr IV Q24H [facility] Last Infusion: 04/16/23 13:19 Dose: Infused Documented By: MILA Nutrition (Parenteral) (Parenteral Nutrition) 960 mls @ 40 mls/hr IV .Q24H [facility]; Protocol Stop: 04/16/23 20:59 Last Admin: 04/15/23 22:17 Dose: 40 mls/hr Documented By: PACO Nutrition (Parenteral) (Parenteral Nutrition) 1,440 mls @ 60 mls/hr IV .Q24H [facility]; Protocol Stop: 04/17/23 20:59 Lactulose (Lactulose 20 Gm/30 Ml Solution) 20 gm PO BID [facility] Last Admin: 04/16/23 11:25 Dose: 20 gm Documented By: MILA Levetiracetam (Levetiracetam 250 Mg Tablet) 250 mg PO BID [facility] Last Admin: 04/16/23 09:04 Dose: 250 mg Documented By: MILA Magnesium Oxide (Magnesium Oxide 400 Mg Tablet) 400 mg PO DAILY [facility] Last Admin: 04/16/23 09:03 Dose: 400 mg Documented By: MILA Midodrine (Midodrine Hcl 10 Mg Tablet) 10 mg PO TID [facility] Last Admin: 04/16/23 16:29 Dose: 10 mg Documented By: MILA Multivitamins/Vitamin C (Multivitamin Tablet) 1 tab PO DAILY [facility] Last Admin: 04/16/23 11:25 Dose: 1 tab Documented By: MILA Nortriptyline HCl (Nortriptyline Hcl 25 Mg Capsule) 25 mg PO BID [facility] Last Admin: 04/16/23 09:04 Dose: 25 mg Documented By: MILA Ondansetron HCl (Ondansetron Hcl 4 Mg/2 Ml Vial) 4 mg IVPUSH Q8H PRN PRN Reason: Nausea and Vomiting Pantoprazole Sodium (Pantoprazole Sodium 40 Mg/10 Ml Vial) 40 mg IVPUSH BID@0630,1630 [facility] Last Admin: 04/16/23 16:28 Dose: 40 mg Documented By: MILA Pharmacy Consult (Consult Rx Parenteral Nutrition Ordering) 1 each MISCELLANE DAILY PRN PRN Reason: Consult order Polyethylene Glycol (Polyethylene Glycol 3350 17 Gm Powd.Pack) 17 gm PO DAILY [facility] Last Admin: 04/16/23 09:03 Dose: 17 gm Documented By: MILA Sodium Biphosphate/Sodium Phosphate (Sodium Phosphate,[place]-Dibasic 133 Ml Enema) 197 ml RI DAILY PRN PRN Reason: Constipation Sodium Chloride (0.9 % Sodium Chloride Flush 3 Ml Syringe) 3 ml IVFLUSH QSHIFT [facility] Last Admin: 04/16/23 16:28 Dose: 3 ml Documented By: MILA Sodium Chloride (0.9 % Sodium Chloride Flush 10 Ml Syringe) 5 ml IVFLUSH TID [facility] Last Admin: 04/16/23 16:08 Dose: Not Given Documented By: MILA Non-Admin Reason: IV Running Spironolactone (Spironolactone 25 Mg Tablet) 25 mg PO DAILY [facility]; Protocol Last Admin: 04/13/23 09:00 Dose: 25 mg Documented By: MENDOZA Topiramate (Topiramate 100 Mg Tablet) 100 mg PO BEDTIME [facility] Last Admin: 04/15/23 20:18 Dose: 100 mg Documented By: PACO Valacyclovir HCl (Valacyclovir Hcl 1,000 Mg Tablet) 1,000 mg PO DAILY [facility] Last Admin: 04/16/23 09:03 Dose: 1,000 mg Documented By: MILA Vitamin D (Cholecalciferol (Vitamin D3) 25 Mcg Tablet) 25 mcg PO DAILY [facility] Last Admin: 04/16/23 09:04 Dose: 25 mcg Documented By: MILA Labs 04/16/23 05:42 04/16/23 05:42 Labs: Laboratory Results - last 24 hr 04/16/23 04/16/23 05:42 08:28 MCV 86.8 MCH 29.8 MCHC 34.3 RDW 17.5 H Plt Count 101 L MPV 10.1 Absolute Nucleated RBC 0.000 Nucleated RBC % (auto) 0.0 Smear Path Review SEE NOTE Absolute Retic 0.036 Percent Retic 1.5 Immature Retic Fraction 20.8 H Retic Hgb Equivalent 33.7 Anion Gap 8 L Estim Creat Clear Calc 68.6 Estimated GFR > 60 Random Glucose 82 Calcium 7.7 L Phosphorus 2.4 L Magnesium 2.0 Iron 54 TIBC 79 L % Saturation 68 H Unsat Iron Binding < 25 Ferritin 445 H Total Bilirubin 0.4 Direct Bilirubin 0.3 AST 15 ALT 16 Alkaline Phosphatase 123 H Lactate Dehydrogenase 323 H Total Protein 4.0 L Albumin 2.2 L Vitamin B12 1139 H Folate 6.1 Blood Type O Positive Antibody Screen NEGATIVE Crossmatch See Detail Procedures Date of Service Date of Service: 04/16/23 Progress Note: A&P Assessment and plan (1) Malnutrition: Status: Acute Assessment and Plan: 1. Continue peripheral TPN 2. Would not advance diet until the operative report of recent surgery is reviewed. If the patient an extensive small bowel resection the patient will require a specific nutritional plan 3. Hold all her home medications as they may have contributed to her situation 4. The anemia does not seem to be a result of iron deficiency and it could be the result of severe hypoproteinemia 5. Encourage her to drink at least 1-2 Ensure Plus protein shakes per day. The food is of no value in this patient as it will create early satiety and it cannot be easily absorbed due to the gastric bypass. 6. PPI prophylaxis 7. Psychiatric evaluation (2) Hypoalbuminemia: Status: Acute (3) Acute on chronic anemia: Status: Acute Time Spent With Patient Time: Total time managing care of this patient today 30 minutes. Quality Stroke Does the patient have a stroke diagnosis?: No VTE Prior VTE?: No VTE Risk Level:: Medical - moderate - high VTE Device Contraindication: Treatment Not Indicated VTE Drug Contraindication: N/A - Med Ordered
--- NOTE | 2023-04-16 20:37 | PM.PNGS ---
Subjective Subjective Date of Service: 04/16/23 Patient reports: no new complaints Interval history: Pt is much more alert and talkative today. She states she feels a little better and stronger today. States she drank 1.5 Ensure [place] protein shakes yesterday and is trying to complete 2 today. She states she also ate some soft chicken and mashed potato. No c/o epigastirc pain, states if she drinks to much feels full. No nausea or emesis. Yesterday she was very tearful wetoribio she told me that I did this to myself, I stopped eating because I wanted to be skinny . Physical Exam Vital Signs: Vital Signs: Last Vital Signs Temp 97.7 F 04/16/23 19:20 Pulse 96 04/16/23 19:20 Resp 20 04/16/23 19:20 BP 109/56 L 04/16/23 19:20 Pulse Ox 96 04/16/23 19:20 O2 Del Method Room Air 04/16/23 19:20 BMI result Body Mass Index 19.0 Const: General: cooperative, comfortable, alert and awake Nutritional Appearance: malnourished Orientation/consciousness: patient oriented x3 GI: Palpation (GI): Soft to palpation, nontender and no guarding Neuro: General: patient oriented x3 Objective Data Active Medications Acetaminophen (Acetaminophen 325 Mg Tablet) 650 mg PO Q6H PRN PRN Reason: Pain, Mild (Pain Scale 1-3) Last Admin: 04/16/23 06:54 Dose: 650 mg Documented By: PACO Ascorbic Acid (Ascorbic Acid 500 Mg Tablet) 500 mg PO DAILY [facility] Last Admin: 04/16/23 09:04 Dose: 500 mg Documented By: MILA Bisacodyl (Bisacodyl 10 Mg Supp.Rect) 10 mg [place] DAILY PRN PRN Reason: Constipation Dicyclomine HCl (Dicyclomine Hcl 10 Mg Capsule) 10 mg PO DAILY [facility] Last Admin: 04/16/23 09:04 Dose: 10 mg Documented By: MILA Fludrocortisone Acetate (Fludrocortisone Acetate 0.1 Mg Tablet) 0.1 mg PO DAILY [facility] Last Admin: 04/16/23 09:03 Dose: 0.1 mg Documented By: MILA Ceftriaxone Sodium 1 gm/ (Sodium Chloride) 50 mls @ 100 mls/hr IV Q24H [facility] Last Infusion: 04/16/23 13:19 Dose: Infused Documented By: MILA Nutrition (Parenteral) (Parenteral Nutrition) 960 mls @ 40 mls/hr IV .Q24H [facility]; Protocol Stop: 04/16/23 20:59 Last Admin: 04/15/23 22:17 Dose: 40 mls/hr Documented By: PACO Nutrition (Parenteral) (Parenteral Nutrition) 1,440 mls @ 60 mls/hr IV .Q24H [facility]; Protocol Stop: 04/17/23 20:59 Lactulose (Lactulose 20 Gm/30 Ml Solution) 20 gm PO BID [facility] Last Admin: 04/16/23 11:25 Dose: 20 gm Documented By: MILA Levetiracetam (Levetiracetam 250 Mg Tablet) 250 mg PO BID [facility] Last Admin: 04/16/23 09:04 Dose: 250 mg Documented By: MILA Magnesium Oxide (Magnesium Oxide 400 Mg Tablet) 400 mg PO DAILY [facility] Last Admin: 04/16/23 09:03 Dose: 400 mg Documented By: MILA Midodrine (Midodrine Hcl 10 Mg Tablet) 10 mg PO TID [facility] Last Admin: 04/16/23 16:29 Dose: 10 mg Documented By: MILA Multivitamins/Vitamin C (Multivitamin Tablet) 1 tab PO DAILY [facility] Last Admin: 04/16/23 11:25 Dose: 1 tab Documented By: MILA Nortriptyline HCl (Nortriptyline Hcl 25 Mg Capsule) 25 mg PO BID [facility] Last Admin: 04/16/23 09:04 Dose: 25 mg Documented By: MILA Ondansetron HCl (Ondansetron Hcl 4 Mg/2 Ml Vial) 4 mg IVPUSH Q8H PRN PRN Reason: Nausea and Vomiting Pantoprazole Sodium (Pantoprazole Sodium 40 Mg/10 Ml Vial) 40 mg IVPUSH BID@0630,1630 [facility] Last Admin: 04/16/23 16:28 Dose: 40 mg Documented By: MILA Pharmacy Consult (Consult Rx Parenteral Nutrition Ordering) 1 each MISCELLANE DAILY PRN PRN Reason: Consult order Polyethylene Glycol (Polyethylene Glycol 3350 17 Gm Powd.Pack) 17 gm PO DAILY [facility] Last Admin: 04/16/23 09:03 Dose: 17 gm Documented By: MILA Sodium Biphosphate/Sodium Phosphate (Sodium Phosphate,[place]-Dibasic 133 Ml Enema) 197 ml GA DAILY PRN PRN Reason: Constipation Sodium Chloride (0.9 % Sodium Chloride Flush 3 Ml Syringe) 3 ml IVFLUSH QSHIFT [facility] Last Admin: 04/16/23 16:28 Dose: 3 ml Documented By: MILA Sodium Chloride (0.9 % Sodium Chloride Flush 10 Ml Syringe) 5 ml IVFLUSH TID [facility] Last Admin: 04/16/23 16:08 Dose: Not Given Documented By: MILA Non-Admin Reason: IV Running Spironolactone (Spironolactone 25 Mg Tablet) 25 mg PO DAILY [facility]; Protocol Last Admin: 04/13/23 09:00 Dose: 25 mg Documented By: MENDOZA Topiramate (Topiramate 100 Mg Tablet) 100 mg PO BEDTIME [facility] Last Admin: 04/15/23 20:18 Dose: 100 mg Documented By: PACO Valacyclovir HCl (Valacyclovir Hcl 1,000 Mg Tablet) 1,000 mg PO DAILY [facility] Last Admin: 04/16/23 09:03 Dose: 1,000 mg Documented By: MILA Vitamin D (Cholecalciferol (Vitamin D3) 25 Mcg Tablet) 25 mcg PO DAILY [facility] Last Admin: 04/16/23 09:04 Dose: 25 mcg Documented By: MILA Labs 04/16/23 05:42 04/16/23 05:42 Labs: Laboratory Results - last 24 hr 04/16/23 04/16/23 05:42 08:28 MCV 86.8 MCH 29.8 MCHC 34.3 RDW 17.5 H Plt Count 101 L MPV 10.1 Absolute Nucleated RBC 0.000 Nucleated RBC % (auto) 0.0 Smear Path Review SEE NOTE Absolute Retic 0.036 Percent Retic 1.5 Immature Retic Fraction 20.8 H Retic Hgb Equivalent 33.7 Anion Gap 8 L Estim Creat Clear Calc 68.6 Estimated GFR > 60 Random Glucose 82 Calcium 7.7 L Phosphorus 2.4 L Magnesium 2.0 Iron 54 TIBC 79 L % Saturation 68 H Unsat Iron Binding < 25 Ferritin 445 H Total Bilirubin 0.4 Direct Bilirubin 0.3 AST 15 ALT 16 Alkaline Phosphatase 123 H Lactate Dehydrogenase 323 H Total Protein 4.0 L Albumin 2.2 L Vitamin B12 1139 H Folate 6.1 Blood Type O Positive Antibody Screen NEGATIVE Crossmatch See Detail Procedures Date of Service Date of Service: 04/16/23 Progress Note: A&P Assessment and plan (1) Malnutrition: Status: Acute Assessment and Plan: PPN day # 1, and toelratinf small amount sof po nutrition. Much more alert today, continue PPN/TPN per RD recommendations. No surgical etiology for her anorexia prior to admission. (2) Anemia: Status: Acute Assessment and Plan: Heme/onc note appreciated, receiving 2 U PRBC's fr acute and chronic anemia most likely due ot malabsorbtion after GBP and malnutrition. (3) History of Zane-en-Y gastric bypass: Status: Acute Assessment and Plan: Case discussed with Dr Victor, because there is no surgical etiology for her present malnutriton we will sign off. Please have patient follow up in our office after discharge. Pleases contact us during hospitalization if needed. We will review OR records [facility] when received. Plan See above Time Spent With Patient Time: Total time managing care of this patient today 20 minutes. Quality Stroke Does the patient have a stroke diagnosis?: No VTE Prior VTE?: No VTE Risk Level:: Medical - moderate - high VTE Device Contraindication: Treatment Not Indicated VTE Drug Contraindication: N/A - Med Ordered
[2023-04-16] MEDS: Topiramate 100 MG TABLET PO (22:05)
[2023-04-16] MEDS: Parenteral Nutrition 1,440 ML 60 ML IV (22:28)
[2023-04-17] VITALS (8 sets, daily range): BP systolic 98–130; BP diastolic 59–70; PULSE 69–110; RESP 16–20; TEMP 35.7–36.8; O2SAT 96–100
[2023-04-17] MEDS: Pantoprazole Sodium 40 MG/10 ML VIAL IVPUSH ×2 (05:59→16:40)
[2023-04-17 07:27] LABS: Hematocrit 33.8 % (37.0-47.0); Hemoglobin 11.6 g/dl (12.0-16.0); Mean Corpuscular HGB Conc 34.3 g/dl (31.0-35.0); Mean Corpuscular Volume 87.3 fL (80.0-98.0); Mean Platelet Volume 10.8 fL (9.4-12.3); Red Blood Count 3.87 X10*6/uL (4.20-5.50); Red Cell Distribution Width 16.4 % (11.0-16.0); White Blood Count 6.1 X10*3/uL (4.8-10.8)
[2023-04-17 07:28] LABS: Platelet Count 73 X10*3/uL (160-400)
[2023-04-17] MEDS: Magnesium Oxide 400 MG TABLET PO (08:21)
[2023-04-17] MEDS: Acetaminophen 325 MG TABLET 650 MG PO ×2 (08:21→14:24)
[2023-04-17] MEDS: Midodrine HCl 10 MG TABLET PO ×3 (08:21→21:29)
[2023-04-17] MEDS: valACYclovir HCL 1,000 MG TABLET 1000 MG PO (08:21)
[2023-04-17] MEDS: levETIRAcetam 250 MG TABLET PO ×2 (08:21→21:29)
[2023-04-17] MEDS: Fludrocortisone Acetate 0.1 MG TABLET PO (08:21)
[2023-04-17] MEDS: Ascorbic Acid 500 MG TABLET PO (08:21)
[2023-04-17] MEDS: Lactulose 20 GM/30 ML SOLUTION PO ×2 (08:22→21:29)
[2023-04-17] MEDS: Nortriptyline HCl 25 MG CAPSULE PO ×2 (08:22→21:29)
[2023-04-17] MEDS: Multivitamin TABLET 1 TAB PO (08:22)
[2023-04-17] MEDS: polyethylene glycoL 3350 17 GM POWD.PACK PO (08:22)
[2023-04-17] MEDS: Cholecalciferol (Vitamin D3) 25 MCG TABLET PO (08:22)
[2023-04-17] MEDS: 0.9 % Sodium Chloride Flush 3 ML SYRINGE IVFLUSH ×3 (08:22→21:44)
[2023-04-17] MEDS: Dicyclomine HCl 10 MG CAPSULE PO (08:22)
--- NOTE | 2023-04-17 09:36 | HO.PM.IMPN ---
Subjective Subjective Date of Service: 04/17/23 Interval History: more alert and interactive feels little better Hb improved to 11.2 after 2 units transfusion No evidence of bleeding not eating much tolerating PPN Physical Exam Vital Signs: Vital Signs: Last Vital Signs Temp 98.2 F 04/17/23 07:52 Pulse 101 H 04/17/23 07:52 Resp 18 04/17/23 07:52 BP 98/61 04/17/23 07:52 Pulse Ox 96 04/17/23 07:52 O2 Del Method Room Air 04/17/23 07:52 BMI result Body Mass Index 19.0 Const: Other: Constitutional : Awake , cachetic, weak and frail Neck : Normal inspection, Supple Cardiovascular : RRR, no JVP, no lower extremity edema Respiratory : good bilateral air entry, no crackles, wheezes or rhonchi Gastrointestinal: soft, lax, Normal bowel sounds, Non tender Skin : Warm, Dry Neurological : Alert & oriented to place and self, No focal deficit but overall weakness Objective Data Active Medications Acetaminophen (Acetaminophen 325 Mg Tablet) 650 mg PO Q6H PRN PRN Reason: Pain, Mild (Pain Scale 1-3) Last Admin: 04/17/23 08:21 Dose: 650 mg Documented By: GABI Ascorbic Acid (Ascorbic Acid 500 Mg Tablet) 500 mg PO DAILY [facility] Last Admin: 04/17/23 08:21 Dose: 500 mg Documented By: GABI Bisacodyl (Bisacodyl 10 Mg Supp.Rect) 10 mg [place] DAILY PRN PRN Reason: Constipation Dicyclomine HCl (Dicyclomine Hcl 10 Mg Capsule) 10 mg PO DAILY [facility] Last Admin: 04/17/23 08:22 Dose: 10 mg Documented By: GABI Fludrocortisone Acetate (Fludrocortisone Acetate 0.1 Mg Tablet) 0.1 mg PO DAILY [facility] Last Admin: 04/17/23 08:21 Dose: 0.1 mg Documented By: GABI Ceftriaxone Sodium 1 gm/ (Sodium Chloride) 50 mls @ 100 mls/hr IV Q24H [facility] Last Infusion: 04/16/23 13:19 Dose: Infused Documented By: MILA Nutrition (Parenteral) (Parenteral Nutrition) 1,440 mls @ 60 mls/hr IV .Q24H [facility]; Protocol Stop: 04/17/23 20:59 Last Admin: 04/16/23 22:28 Dose: 60 mls/hr Documented By: DUANE Lactulose (Lactulose 20 Gm/30 Ml Solution) 20 gm PO BID [facility] Last Admin: 04/17/23 08:22 Dose: 20 gm Documented By: GABI Levetiracetam (Levetiracetam 250 Mg Tablet) 250 mg PO BID [facility] Last Admin: 04/17/23 08:21 Dose: 250 mg Documented By: GABI Lurasidone HCl (Lurasidone Hcl 40 Mg Tablet) 120 mg PO DAILY [facility] Magnesium Oxide (Magnesium Oxide 400 Mg Tablet) 400 mg PO DAILY [facility] Last Admin: 04/17/23 08:21 Dose: 400 mg Documented By: GABI Midodrine (Midodrine Hcl 10 Mg Tablet) 10 mg PO TID [facility] Last Admin: 04/17/23 08:21 Dose: 10 mg Documented By: GABI Multivitamins/Vitamin C (Multivitamin Tablet) 1 tab PO DAILY [facility] Last Admin: 04/17/23 08:22 Dose: 1 tab Documented By: GABI Nortriptyline HCl (Nortriptyline Hcl 25 Mg Capsule) 25 mg PO BID [facility] Last Admin: 04/17/23 08:22 Dose: 25 mg Documented By: GABI Ondansetron HCl (Ondansetron Hcl 4 Mg/2 Ml Vial) 4 mg IVPUSH Q8H PRN PRN Reason: Nausea and Vomiting Pantoprazole Sodium (Pantoprazole Sodium 40 Mg/10 Ml Vial) 40 mg IVPUSH BID@0630,1630 [facility] Last Admin: 04/17/23 05:59 Dose: 40 mg Documented By: DUANE Pharmacy Consult (Consult Rx Parenteral Nutrition Ordering) 1 each MISCELLANE DAILY PRN PRN Reason: Consult order Polyethylene Glycol (Polyethylene Glycol 3350 17 Gm Powd.Pack) 17 gm PO DAILY [facility] Last Admin: 04/17/23 08:22 Dose: 17 gm Documented By: GABI Sodium Biphosphate/Sodium Phosphate (Sodium Phosphate,[place]-Dibasic 133 Ml Enema) 197 ml CO DAILY PRN PRN Reason: Constipation Sodium Chloride (0.9 % Sodium Chloride Flush 3 Ml Syringe) 3 ml IVFLUSH QSHIFT [facility] Last Admin: 04/17/23 08:22 Dose: 3 ml Documented By: GABI Sodium Chloride (0.9 % Sodium Chloride Flush 10 Ml Syringe) 5 ml IVFLUSH TID [facility] Last Admin: 04/17/23 08:31 Dose: Not Given Documented By: GABI Non-Admin Reason: IV Running Spironolactone (Spironolactone 25 Mg Tablet) 25 mg PO DAILY [facility]; Protocol Last Admin: 04/13/23 09:00 Dose: 25 mg Documented By: MENDOZA Topiramate (Topiramate 100 Mg Tablet) 100 mg PO BEDTIME [facility] Last Admin: 04/16/23 22:05 Dose: 100 mg Documented By: DUANE Valacyclovir HCl (Valacyclovir Hcl 1,000 Mg Tablet) 1,000 mg PO DAILY [facility] Last Admin: 04/17/23 08:21 Dose: 1,000 mg Documented By: GABI Vitamin D (Cholecalciferol (Vitamin D3) 25 Mcg Tablet) 25 mcg PO DAILY [facility] Last Admin: 04/17/23 08:22 Dose: 25 mcg Documented By: GABI Labs 04/17/23 06:43 04/16/23 05:42 Labs: Laboratory Results - last 24 hr 04/16/23 04/16/23 04/17/23 05:42 08:28 06:43 MCV 87.3 MCH 30.0 MCHC 34.3 RDW 16.4 H Plt Count 73 L D MPV 10.8 Absolute Nucleated RBC 0.000 Nucleated RBC % (auto) 0.0 Smear Path Review SEE NOTE Vitamin B12 1139 H Folate 6.1 Blood Type O Positive Antibody Screen NEGATIVE Crossmatch See Detail Assessment and Plan (1) Acute on chronic anemia: Status: Acute (2) Metabolic acidosis: Status: Acute (3) Toxic metabolic encephalopathy: Status: Acute (4) UTI (urinary tract infection): Status: Acute Plan 56F PMH gatric bypass, SBOs, hld, depression, DM, migraines, trung, presented with ams and hypoxia Acute on chronic anemia improved >11 after 2 units No evidence of bleeding, pending occult likely dilutional as she was significantly dehydrated follow H&H Pancytopenia likely from malnutrition Hematology input appreciated, CT Abd daily CBC, LDH and bilirubin Multivitamins acute toxic metabolic encephalopathy 2/2 UTI, polypharmacy improved IV Rocephin for 5 days, Ecoli in urine cultures moderate-severe protein calorie malnutrition due to excessive weight loss/malabsorption s/p 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 bypass 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 Midline to be placed PPN for now encourage PO intake Bariatric surgery eval acute hypoxic respiratory failure unclear etiology, resolved on room air, cxr unremarkable chronic non anion gap metabolic acidosis due to acetozolamide dc azetozolamide, continue oral bicarb, monitor BMP history of DM,TRUNG, htn resolved w weight loss dvt prophylaxis lovenox reason for continued hospitalization overnight to improve mental status and nutritional status pending better tolerance of PO Quality Stroke Does the patient have a stroke diagnosis?: No VTE Prior VTE?: No VTE Risk Level:: Medical - moderate - high VTE Device Contraindication: Treatment Not Indicated VTE Drug Contraindication: N/A - Med Ordered
[2023-04-17 10:15] LABS: Albumin Level 2.1 g/dL (3.5-5.0); Anion Gap 9 (12-20); Blood Urea Nitrogen 9 mg/dL (9-16); Calcium 7.7 mg/dL (8.4-10.2); Carbon Dioxide 19 mmol/L (22-29); Chloride 115 mmol/L (96-108); Creatinine Clr Calc Pharmacy 81.6; Estimated Glomerular Filt Rate > 60; Glucose Random 86 mg/dL (60-115); Lactate Dehydrogenase 236 U/L (122-220); Magnesium 2.1 mg/dL (1.6-2.6); Phosphorus 2.1 mg/dL (2.7-4.5); Potassium 4.4 mmol/L (3.3-5.1); Sodium 139 mmol/L (135-145)
[2023-04-17 10:51] LABS: OBS Int Ctl Valid YES; OBS1 NEGATIVE (NEGATIVE)
[2023-04-17] MEDS: Lurasidone HCl 40 MG TABLET 120 MG PO (11:08)
[2023-04-17] MEDS: cefTRIAXone sodium 1 GM in 0.9 % Sodium Chloride 50 ML IV (11:08)
--- NOTE | 2023-04-17 15:36 | PC.NURSE ---
Pt assisted OOB to recliner. Able to take a few steps with 2 assist. Sat in chair x3 hours. Assisted back to bed taking a few stes.
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
[2023-04-17] MEDS: Parenteral Nutrition 1,680 ML 70 ML IV (21:29)
[2023-04-17] MEDS: Topiramate 100 MG TABLET PO (21:29)
[2023-04-17] MEDS: 0.9 % Sodium Chloride Flush 10 ML SYRINGE 5 ML IVFLUSH (21:30)
[2023-04-18 01:22] LABS: Levetiracetam Keppra 35.8 mcg/mL (6.0-46.0)
[2023-04-18 04:00] VITALS: BP 102/57; PULSE 104; RESP 20; TEMP 36.3; O2SAT 98
[2023-04-18] MEDS: Pantoprazole Sodium 40 MG/10 ML VIAL IVPUSH ×2 (06:34→15:52)
[2023-04-18 07:04] VITALS: BP 96/57; PULSE 101; RESP 19; TEMP 37.1; O2SAT 100
[2023-04-18 07:53] LABS: Anion Gap 10 (12-20); Blood Urea Nitrogen 10 mg/dL (9-16); Calcium 7.7 mg/dL (8.4-10.2); Carbon Dioxide 19 mmol/L (22-29); Chloride 113 mmol/L (96-108); Creatinine Clr Calc Pharmacy 87.6; Estimated Glomerular Filt Rate > 60; Glucose Random 104 mg/dL (60-115); Phosphorus 2.4 mg/dL (2.7-4.5); Potassium 5.5 mmol/L (3.3-5.1); Sodium 136 mmol/L (135-145)
[2023-04-18] MEDS: levETIRAcetam 250 MG TABLET PO ×2 (09:26→21:35)
[2023-04-18] MEDS: Cholecalciferol (Vitamin D3) 25 MCG TABLET PO (09:26)
[2023-04-18] MEDS: Multivitamin TABLET 1 TAB PO (09:26)
[2023-04-18] MEDS: Nortriptyline HCl 25 MG CAPSULE PO ×2 (09:26→21:36)
[2023-04-18] MEDS: Fludrocortisone Acetate 0.1 MG TABLET PO (09:26)
[2023-04-18] MEDS: Sodium Zirconium Cyclosilicate 5 GM POWD.PACK PO (09:26)
[2023-04-18] MEDS: Magnesium Oxide 400 MG TABLET PO (09:26)
[2023-04-18] MEDS: Lurasidone HCl 40 MG TABLET 120 MG PO (09:26)
[2023-04-18] MEDS: valACYclovir HCL 1,000 MG TABLET 1000 MG PO (09:26)
[2023-04-18] MEDS: Midodrine HCl 10 MG TABLET PO ×3 (09:26→21:35)
[2023-04-18] MEDS: Dicyclomine HCl 10 MG CAPSULE PO (09:27)
[2023-04-18] MEDS: Ascorbic Acid 500 MG TABLET PO (09:27)
[2023-04-18] MEDS: Acetaminophen 325 MG TABLET 650 MG PO (09:27)
--- NOTE | 2023-04-18 09:27 | HO.PM.IMPN ---
Subjective Subjective Date of Service: 04/18/23 Interval History: more alert and interactive feels better but still weak and frail Hb improved to 11.6 after 2 units transfusion No evidence of bleeding tolerating PPN Review of Systems Review of Systems: Yes all other systems are reviewed and are negative Physical Exam Vital Signs: Vital Signs: Last Vital Signs Temp 98.8 F 04/18/23 07:04 Pulse 101 H 04/18/23 07:04 Resp 19 04/18/23 07:04 BP 96/57 L 04/18/23 07:04 Pulse Ox 100 04/18/23 07:04 O2 Del Method Room Air 04/18/23 07:04 BMI result Body Mass Index 19.0 Const: Other: Constitutional : Awake , cachetic, weak and frail Neck : Normal inspection, Supple Cardiovascular : RRR, no JVP, no lower extremity edema Respiratory : good bilateral air entry, no crackles, wheezes or rhonchi Gastrointestinal: soft, lax, Normal bowel sounds, Non tender Skin : Warm, Dry Neurological : Alert & oriented to place and self, No focal deficit but overall weakness Objective Data Active Medications Acetaminophen (Acetaminophen 325 Mg Tablet) 650 mg PO Q6H PRN PRN Reason: Pain, Mild (Pain Scale 1-3) Last Admin: 04/17/23 14:24 Dose: 650 mg Documented By: GABI Ascorbic Acid (Ascorbic Acid 500 Mg Tablet) 500 mg PO DAILY [facility] Last Admin: 04/17/23 08:21 Dose: 500 mg Documented By: GABI Bisacodyl (Bisacodyl 10 Mg Supp.Rect) 10 mg [place] DAILY PRN PRN Reason: Constipation Dicyclomine HCl (Dicyclomine Hcl 10 Mg Capsule) 10 mg PO DAILY [facility] Last Admin: 04/17/23 08:22 Dose: 10 mg Documented By: GABI Fludrocortisone Acetate (Fludrocortisone Acetate 0.1 Mg Tablet) 0.1 mg PO DAILY [facility] Last Admin: 04/17/23 08:21 Dose: 0.1 mg Documented By: GABI Nutrition (Parenteral) (Parenteral Nutrition) 1,680 mls @ 70 mls/hr IV .Q24H [facility]; Protocol Stop: 04/18/23 20:59 Last Admin: 04/17/23 21:29 Dose: 70 mls/hr Documented By: DUANE Nutrition (Parenteral) (Parenteral Nutrition) 1,680 mls @ 70 mls/hr IV .Q24H [facility]; Protocol Stop: 04/19/23 20:59 Lactulose (Lactulose 20 Gm/30 Ml Solution) 20 gm PO BID [facility] Last Admin: 04/17/23 21:29 Dose: 20 gm Documented By: DUANE Levetiracetam (Levetiracetam 250 Mg Tablet) 250 mg PO BID [facility] Last Admin: 04/17/23 21:29 Dose: 250 mg Documented By: DUANE Lurasidone HCl (Lurasidone Hcl 40 Mg Tablet) 120 mg PO DAILY [facility] Last Admin: 04/17/23 11:08 Dose: 120 mg Documented By: GABI Magnesium Oxide (Magnesium Oxide 400 Mg Tablet) 400 mg PO DAILY [facility] Last Admin: 04/17/23 08:21 Dose: 400 mg Documented By: GABI Midodrine (Midodrine Hcl 10 Mg Tablet) 10 mg PO TID [facility] Last Admin: 04/17/23 21:29 Dose: 10 mg Documented By: DUANE Multivitamins/Vitamin C (Multivitamin Tablet) 1 tab PO DAILY [facility] Last Admin: 04/17/23 08:22 Dose: 1 tab Documented By: GABI Nortriptyline HCl (Nortriptyline Hcl 25 Mg Capsule) 25 mg PO BID [facility] Last Admin: 04/17/23 21:29 Dose: 25 mg Documented By: DUANE Ondansetron HCl (Ondansetron Hcl 4 Mg/2 Ml Vial) 4 mg IVPUSH Q8H PRN PRN Reason: Nausea and Vomiting Pantoprazole Sodium (Pantoprazole Sodium 40 Mg/10 Ml Vial) 40 mg IVPUSH BID@0630,1630 [facility] Last Admin: 04/18/23 06:34 Dose: 40 mg Documented By: DUANE Pharmacy Consult (Consult Rx Parenteral Nutrition Ordering) 1 each [place] DAILY PRN PRN Reason: Consult order Polyethylene Glycol (Polyethylene Glycol 3350 17 Gm Powd.Pack) 17 gm PO DAILY [facility] Last Admin: 04/17/23 08:22 Dose: 17 gm Documented By: GABI Sodium Biphosphate/Sodium Phosphate (Sodium Phosphate,[place]-Dibasic 133 Ml Enema) 197 ml [place] DAILY PRN PRN Reason: Constipation Sodium Chloride (0.9 % Sodium Chloride Flush 3 Ml Syringe) 3 ml IVFLUSH QSHIFT [facility] Last Admin: 04/17/23 21:44 Dose: 3 ml Documented By: DUANE Sodium Chloride (0.9 % Sodium Chloride Flush 10 Ml Syringe) 5 ml IVFLUSH TID [facility] Last Admin: 04/17/23 21:30 Dose: 5 ml Documented By: DUANE Spironolactone (Spironolactone 25 Mg Tablet) 25 mg PO DAILY [facility]; Protocol Last Admin: 04/13/23 09:00 Dose: 25 mg Documented By: MENDOZA Topiramate (Topiramate 100 Mg Tablet) 100 mg PO BEDTIME [facility] Last Admin: 04/17/23 21:29 Dose: 100 mg Documented By: DUANE Valacyclovir HCl (Valacyclovir Hcl 1,000 Mg Tablet) 1,000 mg PO DAILY [facility] Last Admin: 04/17/23 08:21 Dose: 1,000 mg Documented By: GABI Vitamin D (Cholecalciferol (Vitamin D3) 25 Mcg Tablet) 25 mcg PO DAILY [facility] Last Admin: 04/17/23 08:22 Dose: 25 mcg Documented By: GABI Labs 04/17/23 06:43 04/18/23 06:37 Labs: Laboratory Results - last 24 hr 04/13/23 04/17/23 04/18/23 01:55 10:31 06:37 Anion Gap 10 L Estim Creat Clear Calc 87.6 Estimated GFR > 60 Random Glucose 104 Calcium 7.7 L Phosphorus 2.4 L Magnesium 2.0 Albumin 2.0 L Stool Occult Blood NEGATIVE Levetiracetam 35.8 Microbiology Microbiology Results: Microbiology 04/12/23 21:04 Blood Culture - Final Blood - Venous No growth after 5 days. 04/12/23 21:04 Blood Culture - Final Blood - Venous No growth after 5 days. Assessment and Plan (1) Major depressive disorder, recurrent: Status: Acute (2) UTI (urinary tract infection): Status: Acute (3) Acute on chronic anemia: Status: Acute (4) Toxic metabolic encephalopathy: Status: Acute (5) Metabolic acidosis: Status: Acute Plan 56F PMH gatric bypass, SBOs, hld, depression, DM, migraines, trung, presented with ams and hypoxia Acute on chronic anemia improved >11 after 2 units No evidence of bleeding, -ve occult likely dilutional as she was significantly dehydrated follow H&H Acute hyperkalemia K 5.5 give Lokelma follow BMP Pancytopenia likely from malnutrition Hematology input appreciated, CT Abd daily CBC, LDH and bilirubin Multivitamins acute toxic metabolic encephalopathy 2/2 UTI, polypharmacy improved Finished IV Rocephin for 5 days, Ecoli in urine cultures moderate-severe protein calorie malnutrition due to excessive weight loss/malabsorption s/p gastric bypass data report analyst Midline to be placed PPN for now encourage PO intake Bariatric surgery eval acute hypoxic respiratory failure unclear etiology, resolved on room air, cxr unremarkable chronic non anion gap metabolic acidosis due to acetozolamide dc azetozolamide, continue oral bicarb, monitor BMP history of DM,TRUNG, htn resolved w weight loss dvt prophylaxis lovenox reason for continued hospitalization overnight to improve mental status and nutritional status pending better tolerance of PO Quality Stroke Does the patient have a stroke diagnosis?: No VTE Prior VTE?: No VTE Risk Level:: Medical - moderate - high VTE Device Contraindication: Treatment Not Indicated VTE Drug Contraindication: N/A - Med Ordered
[2023-04-18] MEDS: 0.9 % Sodium Chloride Flush 3 ML SYRINGE IVFLUSH ×2 (09:28→15:52)
[2023-04-18] MEDS: 0.9 % Sodium Chloride Flush 10 ML SYRINGE 5 ML IVFLUSH (09:28)
--- NOTE | 2023-04-18 09:45 | MHC.CLN ---
F/U CONTINUES WITH BARIATRIC PHASE 6 DIET, GROUND CONSISTENCY AND PPN. RECEIVES ENSURE MAX HIGH PROTEIN ON MEAL TRAY TID. PROVIDES 450 KCALS, 90 G PROTEIN IF CONSUMED 100%. LABS REVIEWED. COMMUNICATED WITH PHARMACY. RECOMMEND CONTINUE PPN AT MAX GOAL RATE: PPN AT 70ML/HR, ADD 56 G LIPIDS (1.19 G/KG), TO PROVIDE 1417 KCALS (30 KCALS/KG), 168 G DEXTROSE, 71 G PROTEIN (1.5 G/KG). REPLETE LYTES NEEDED. TAKING VARIABLE AMOUNT OF PO. MONITOR LABS AND PO INTAKE.
--- NOTE | 2023-04-18 10:50 | P.PNHO-ONC_ITS ---
Medical Summary - Medical Summary Date of Service: 04/18/23 Primary Care Provider: Carri Reynoso MD Interval History Interval history: Yaneth Ware is a 57 year old female with a history of gastric bypass surgery, small-bowel obstruction, obstructive sleep apnea and diabetes who is currently admitted for near syncope. As per chart, patient was found with altered mentation and had a near fall at home. She was brought to emergency department, initial evaluation revealed hypoxemia with pulse ox in the low 80s. CT angiogram was negative for PE or any acute findings. Blood work showed metabolic acidosis with low albumin. Admission her hemoglobin was 9.8 gram/dL with platelets of 132 K, after receiving hydration for a few days and as well as receiving TPN, her hemoglobin dropped to 6.8 gram/dL. Her baseline hemoglobin is between 9-10 gram/dL. She reports 150 lb weight loss since her weight loss surgery in 2019. She states that she has no appetite at all and has been feeling very weak and tired all the time. She reports abdominal discomfort as well as pain in both her legs. No recent fever or chills. Review of Systems - Constitutional Reports anorexia - Eyes Reports sensitivity to light - ENT Reports hoarseness - Cardiovascular Reports fast heart rate - Respiratory Reports cough - Gastrointestinal Reports vomiting - Musculoskeletal Reports stiffness - Neurologic Reports abnormal gait, Reports confusion, Reports weakness PMFSH Medical History: Medical History (Last Reviewed 04/13/23 @ 01:55 by Kiley Myers MD) Anxiety Arthritis Back pain Carpal tunnel syndrome Excess skin of upper extremity H/O nephrolithotomy with removal of calculi History of lipoma Hypercholesterolemia Internal hernia Lipoma Lymphedema Migraines Sleep apnea with use of continuous positive airway pressure (CPAP) Type 2 diabetes mellitus Family History: Family History (Last Reviewed 04/13/23 @ 01:55 by Kiley Myers MD) Father No problems noted. Mother Arthritis Brother No problems noted. Brother No problems noted. Sister No problems noted. Sister No problems noted. Sister No problems noted. Sister No problems noted. Son No problems noted. Daughter No problems noted. Surgical History: Surgical History (Last Updated 04/15/23 @ 13:08 by Maite Khan PA-C) H/O cervical discectomy H/O hernia repair History of back surgery History of gastric surgery History of Zane-en-Y gastric bypass Hx of section Hx of colonoscopy Hx of lumpectomy S/P carpal tunnel release S/P knee replacement Social History: Social History (Last Reviewed 04/13/23 @ 01:55 by Kiley Myers MD) Living Situation History: Household Members: Other Housing: Assisted Tobacco History: Patient Tobacco Use Status: Former Tobacco user Smoke Quit Date: 2017 Occupation Assessmet: service: No Current occupational status: disabled Home Medications and Allergies Current Medications: Current Medications Acetaminophen (Acetaminophen 325 Mg Tablet) 650 mg PO Q6H PRN PRN Reason: Pain, Mild (Pain Scale 1-3) Last Admin: 04/18/23 09:27 Dose: 650 mg Ascorbic Acid (Ascorbic Acid 500 Mg Tablet) 500 mg PO DAILY [facility] Last Admin: 04/18/23 09:27 Dose: 500 mg Bisacodyl (Bisacodyl 10 Mg Supp.Rect) 10 mg [place] DAILY PRN PRN Reason: Constipation Dicyclomine HCl (Dicyclomine Hcl 10 Mg Capsule) 10 mg PO DAILY [facility] Last Admin: 04/18/23 09:27 Dose: 10 mg Fludrocortisone Acetate (Fludrocortisone Acetate 0.1 Mg Tablet) 0.1 mg PO DAILY [facility] Last Admin: 04/18/23 09:26 Dose: 0.1 mg Nutrition (Parenteral) (Parenteral Nutrition) 1,680 mls @ 70 mls/hr IV .Q24H [facility]; Protocol Stop: 04/18/23 20:59 Last Admin: 04/17/23 21:29 Dose: 70 mls/hr Nutrition (Parenteral) (Parenteral Nutrition) 1,680 mls @ 70 mls/hr IV .Q24H [facility]; Protocol Stop: 04/19/23 20:59 Levetiracetam (Levetiracetam 250 Mg Tablet) 250 mg PO BID [facility] Last Admin: 04/18/23 09:26 Dose: 250 mg Lurasidone HCl (Lurasidone Hcl 40 Mg Tablet) 120 mg PO DAILY [facility] Last Admin: 04/18/23 09:26 Dose: 120 mg Magnesium Oxide (Magnesium Oxide 400 Mg Tablet) 400 mg PO DAILY [facility] Last Admin: 04/18/23 09:26 Dose: 400 mg Midodrine (Midodrine Hcl 10 Mg Tablet) 10 mg PO TID [facility] Last Admin: 04/18/23 09:26 Dose: 10 mg Multivitamins/Vitamin C (Multivitamin Tablet) 1 tab PO DAILY [facility] Last Admin: 04/18/23 09:26 Dose: 1 tab Nortriptyline HCl (Nortriptyline Hcl 25 Mg Capsule) 25 mg PO BID [facility] Last Admin: 04/18/23 09:26 Dose: 25 mg Ondansetron HCl (Ondansetron Hcl 4 Mg/2 Ml Vial) 4 mg IVPUSH Q8H PRN PRN Reason: Nausea and Vomiting Pantoprazole Sodium (Pantoprazole Sodium 40 Mg/10 Ml Vial) 40 mg IVPUSH BID@0630,1630 [facility] Last Admin: 04/18/23 06:34 Dose: 40 mg Pharmacy Consult (Consult Rx Parenteral Nutrition Ordering) 1 each MISCELLANE DAILY PRN PRN Reason: Consult order Polyethylene Glycol (Polyethylene Glycol 3350 17 Gm Powd.Pack) 17 gm PO DAILY [facility] Last Admin: 04/18/23 09:28 Dose: Not Given Sodium Biphosphate/Sodium Phosphate (Sodium Phosphate,Bradford-Dibasic 133 Ml Enema) 197 ml [place] DAILY PRN PRN Reason: Constipation Sodium Chloride (0.9 % Sodium Chloride Flush 3 Ml Syringe) 3 ml IVFLUSH QSHIFT [facility] Last Admin: 04/18/23 09:28 Dose: 3 ml Sodium Chloride (0.9 % Sodium Chloride Flush 10 Ml Syringe) 5 ml IVFLUSH TID [facility] Last Admin: 04/18/23 09:28 Dose: 5 ml Spironolactone (Spironolactone 25 Mg Tablet) 25 mg PO DAILY [facility]; Protocol Last Admin: 04/13/23 09:00 Dose: 25 mg Topiramate (Topiramate 100 Mg Tablet) 100 mg PO BEDTIME [facility] Last Admin: 04/17/23 21:29 Dose: 100 mg Valacyclovir HCl (Valacyclovir Hcl 1,000 Mg Tablet) 1,000 mg PO DAILY [facility] Last Admin: 04/18/23 09:26 Dose: 1,000 mg Vitamin D (Cholecalciferol (Vitamin D3) 25 Mcg Tablet) 25 mcg PO DAILY [facility] Last Admin: 04/18/23 09:26 Dose: 25 mcg Home Medications Medication Instructions Recorded Confirmed Type cetirizine 10 mg capsule (Zyrtec) 10 mg PO DAILY 05/27/20 04/12/23 History cholecalciferol (vitamin D3) 25 25 mcg PO DAILY 06/03/22 04/12/23 History mcg (1,000 unit) tablet hydroxyzine HCl 25 mg tablet 25 mg PO BEDTIME 06/03/22 04/12/23 History linaclotide 290 mcg capsule 290 mcg PO DAILY 06/03/22 04/12/23 History (Linzess) magnesium oxide 400 mg (241.3 mg 400 mg PO DAILY 06/03/22 04/12/23 History magnesium) tablet melatonin 5 mg tablet 5 mg PO BEDTIME 06/03/22 04/12/23 History potassium chloride 10 mEq 10 meq PO DAILY 06/03/22 04/12/23 History tablet,extended release riboflavin (vitamin B2) 100 mg 200 mg PO BEDTIME 06/03/22 04/12/23 History tablet valacyclovir 1 gram tablet 1,000 mg PO DAILY 06/03/22 04/12/23 History lurasidone 120 mg tablet (Latuda) 120 mg PO DAILY 07/09/22 04/12/23 History ascorbic acid (vitamin C) 500 mg 500 mg PO DAILY 08/07/22 04/12/23 History tablet (Vitamin C) polyethylene glycol 3350 17 17 g PO DAILY 09/25/22 04/12/23 History gram/dose oral powder acetaminophen 325 mg capsule 650 mg PO Q6H PRN Pain 12/28/22 04/12/23 History bisacodyl 10 mg rectal suppository 10 mg NH DAILY PRN Constipation 12/28/22 04/12/23 History clonazepam 0.5 mg tablet 0.25 mg PO DAILY 12/28/22 04/12/23 History dicyclomine 10 mg capsule 10 mg PO DAILY 12/28/22 04/12/23 History levetiracetam 500 mg tablet 500 mg PO BID 12/28/22 04/12/23 History lubiprostone 8 mcg capsule 8 mcg PO DAILY 12/28/22 04/12/23 History pantoprazole 40 mg granules 40 mg PO DAILY 12/28/22 04/12/23 History delayed-release for susp in packet sodium phosphates 19 gram-7 197 ml [place] DAILY PRN Constipation 12/28/22 04/12/23 History gram/118 mL enema (Fleet Enema) acetazolamide 250 mg tablet 250 mg PO TID 04/12/23 04/12/23 History midodrine 5 mg tablet 10 mg PO TID 04/12/23 04/12/23 History nortriptyline 25 mg capsule 25 mg PO BID 04/12/23 04/12/23 History ondansetron HCl 4 mg tablet 4 mg PO Q8H 04/12/23 04/12/23 History spironolactone 25 mg tablet 25 mg PO DAILY 04/12/23 04/12/23 History Allergies Allergy/AdvReac Type Severity Reaction Status Date / Time baclofen Allergy Intermediate Swelling Verified 12/28/22 12:34 amoxicillin Allergy Mild yeast Verified 12/28/22 12:34 infection gabapentin AdvReac Mild Swelling Verified 12/28/22 12:34 Meloxicam Allergy Unknown swelling Uncoded 12/28/22 12:34 Exam Vital signs: Vital Signs Temp 98.8 F 04/18/23 07:04 Pulse 101 H 04/18/23 07:04 Resp 19 04/18/23 07:04 BP 96/57 L 04/18/23 07:04 Pulse Ox 100 04/18/23 07:04 O2 Del Method Room Air 04/18/23 07:04 Intake & Output 04/17/23 04/18/23 04/18/23 19:59 06:59 18:59 Intake Total Output Total Balance Intake: Intake, Oral Amount Intake, IV Amount Parenteral Nutrition 1,440 ml @ 60 mls/hr IV .Q24H [facility] Rx#: [id number] cefTRIAXone sodium 1 gm In 0.9 % Sodium Chloride 50 ml @ 100 mls/hr IV Q24H [facility] Rx#: [id number] Output: Output, Stool Amount Other: Meal Refused NPO Lunch % Eaten Dinner % Eaten Number of Incontinent Voids Number of Unmeasured Voids Urine Urine Color Last Bowel Movement Stool Stool Amount Stool Color Stool Consistency Weight 47.2 kg BMI result Body Mass Index 19.0 - Constitutional Present: no acute distress, mild distress, chronically ill appearing - Routine HEENT Exam Head: Present: atraumatic ENT: Present: normal exam - Routine Neck Exam Present: full ROM - Routine Respiratory Exam Present: decreased breath sounds. Absent: respiratory distress - Routine Cardiovascular Exam Cardiovascular: Present: RRR, S1, S2 - Routine Abdominal Exam Present: diminished bowel sounds, tenderness - Routine Extremities Exam Present: nontender Data - Labs CBC & Chem 7: 04/17/23 06:43 04/18/23 06:37 Labs: 04/12/23 Urine Culture Routine 04/12/23 20:04 Glucose, Whole Blood Routine 04/12/23 20:07 ECG 12 lead EKG Stat EKG Documentation DIRECTED 04/12/23 20:08 XR chest 1V Stat RT CPAP only STAT 04/12/23 20:45 Lidocaine HCl 1 % MPF [Xylocaine 1 % MPF] 2 ml .ROUTE .STK-MED ONE 04/12/23 20:54 Basic Metabolic Panel Stat Liver Panel Stat Magnesium Stat Troponin-I High Sensitivity Stat 04/12/23 21:03 Complete Blood Count Auto Diff Stat Lactic Acid Stat Prothrombin Time INR Stat 04/12/23 21:04 B Type Natriuretic Peptide Stat Venous Blood Gas Stat Blood Culture X2 [BC] Stat 04/12/23 21:10 Venous Blood Gases - POC Routine 04/12/23 21:22 COVID-19 ID NOW ([facility]) Stat Influenza A B2 ID NOW ([facility]) Stat 04/12/23 21:27 CT angio chest PE protocol Stat 04/12/23 21:36 Drug Screen Urine Stat UA ClnCatch+Micro w/rflx Cult Stat 04/12/23 22:37 0.9 % Sodium Chloride [Ns] 1,000 ml IVCONT 999 mls/hr 04/12/23 22:39 iohexoL 350 MG/ML 100 ML [Omnipaque 350 MG/ML] 65 ml IV ONCE ONE 04/13/23 01:33 Regular Diet 04/13/23 01:55 Levetiracetam Keppra Stat Prolactin Stat 04/13/23 05:13 VBG [Venous Blood Gas] Routine 04/13/23 05:19 Basic Metabolic Panel DAILY@0600 Complete Blood Count Auto Diff DAILY@0600 04/13/23 05:22 Venous Blood Gases - POC Routine 04/13/23 08:45 Enoxaparin Sodium [Lovenox] 40 mg SUBCUT Q24H 04/13/23 09:00 Omeprazole [PriLOSEC] 20 mg PO BID acetaZOLAMIDE [Diamox] 250 mg PO TID 04/13/23 11:45 Lactated Ringers [Lr] 1,000 ml IVCONT 80 mls/hr cefTRIAXone sodium [Rocephin] 1 gm 0.9 % Sodium Chloride [Ns] 50 ml IV Q24H 04/13/23 12:19 cefTRIAXone sodium [Rocephin] 1 gm .ROUTE .STK-MED ONE 04/13/23 13:05 NPO Pending Swallow Eval Diet 04/13/23 13:21 Regular Diet 04/13/23 15:00 Sodium Bicarbonate [Neut] 650 mg PO TID 04/14/23 06:39 BMP [Basic Metabolic Panel Fasting] Routine Complete Blood Count no Diff AM Liver Panel Routine Magnesium Routine Phosphorus Routine 04/14/23 12:43 cefTRIAXone sodium [Rocephin] 1 gm .ROUTE .[facility] ONE 04/15/23 IR midline placement Stat 04/15/23 05:47 Albumin Level Routine Basic Metabolic Panel AM Complete Blood Count no Diff AM Erythrocyte Sedimentation Rate Stat Lactate Dehydrogenase Routine Magnesium Routine Phosphorus Routine 04/15/23 07:08 Glucose, Whole Blood Routine 04/15/23 08:21 Add Laboratory Test Urgent 04/15/23 09:56 Add Laboratory Test Routine 04/15/23 11:45 Parenteral Nutrition 960 ml IV 40 mls/hr cefTRIAXone sodium [Rocephin] 1 gm .ROUTE .[facility] ONE 04/15/23 12:00 0.9 % Sodium Chloride [Ns] 1,000 ml IV 999 mls/hr Albumin Human 25 % [Kedbumin 25 %] 100 ml IV Q1H Potassium Phosphate/NS [KPhos] 15 mmol in 250 ml IV ONCE 04/15/23 13:17 Lipid Panel Urgent Vitamin D 25-OH Total Urgent 04/15/23 21:00 Parenteral Nutrition 960 ml IV 40 mls/hr Parenteral Nutrition 960 ml IV 40 mls/hr 04/16/23 CT abdomen pelvis w IV con Urgent 04/16/23 05:42 Basic Metabolic Panel AM Complete Blood Count no Diff AM Liver Panel Routine Magnesium Routine Phosphorus Routine 04/16/23 07:27 0.9 % Sodium Chloride [Ns] 100 ml IV ONCE 0.9 % Sodium Chloride [Ns] 100 ml IV ONCE 04/16/23 08:28 PRBC [Red Blood Cells] Stat Type and Screen Stat Ferritin Urgent IRON PROFILE Urgent Lactate Dehydrogenase Urgent Reticulocyte Count Urgent Vitamin B12 and Folate Urgent 04/16/23 09:50 Lactulose [Chronulac] 20 gm PO BID 04/16/23 11:15 cefTRIAXone sodium [Rocephin] 1 gm .ROUTE .[facility] ONE 04/16/23 17:04 iohexoL 350 MG/ML 100 ML [Omnipaque 350 MG/ML] 100 ml IV ONCE ONE 04/16/23 21:00 Parenteral Nutrition 1,440 ml IV 60 mls/hr 04/17/23 06:43 Albumin Level DAILY@0600 Basic Metabolic Panel DAILY@0600 Complete Blood Count no Diff AM Lactate Dehydrogenase Routine Magnesium DAILY@0600 Phosphorus DAILY@0600 04/17/23 09:57 Add Laboratory Test Urgent 04/17/23 10:31 Occult Blood, Stool x1 [OBSX1] Stat 04/17/23 10:58 cefTRIAXone sodium [Rocephin] 1 gm .ROUTE .[facility]-MED ONE 04/18/23 06:37 Albumin Level DAILY@0600 Basic Metabolic Panel DAILY@0600 Magnesium DAILY@0600 Phosphorus DAILY@0600 04/18/23 08:28 Sodium Zirconium Cyclosilicate [Lokelma] 5 gm PO ONCE ONE Laboratory Last Values WBC 6.1 X10*3/uL (4.8-10.8) 04/17/23 06:43 RBC 3.87 X10*6/uL (4.20-5.50) L D 04/17/23 06:43 Hgb 11.6 g/dl (12.0-16.0) L D 04/17/23 06:43 Hct 33.8 % (37.0-47.0) L D 04/17/23 06:43 MCV 87.3 fL (80.0-98.0) 04/17/23 06:43 MCH 30.0 pg (27.0-33.0) 04/17/23 06:43 MCHC 34.3 g/dl (31.0-35.0) 04/17/23 06:43 RDW 16.4 % (11.0-16.0) H 04/17/23 06:43 Plt Count 73 X10*3/uL (160-400) L D 04/17/23 06:43 MPV 10.8 fL (9.4-12.3) 04/17/23 06:43 Immature Gran % (Auto) 0.3 % (0.0-0.4) 04/13/23 05:19 Neut % (Auto) 70.5 % (45-73) 04/13/23 05:19 Lymph % (Auto) 24.2 % (20-40) 04/13/23 05:19 Bradford % (Auto) 4.8 % (2-11) 04/13/23 05:19 Eos % (Auto) 0.1 % (0-4) 04/13/23 05:19 Baso % (Auto) 0.1 % (0-2) 04/13/23 05:19 Lymph # (Auto) 2.2 X10*3/uL (1.2-4.9) 04/13/23 05:19 Bradford # (Auto) 0.4 X10*3/uL (0.1-1.2) 04/13/23 05:19 Eos # (Auto) 0.0 X10*3/uL (0.0-0.4) 04/13/23 05:19 Baso # (Auto) 0.0 X10*3/uL (0.0-0.2) 04/13/23 05:19 Abs Immat Gran (auto) 0.03 X10*3/uL (0.00-0.03) 04/13/23 05:19 Absolute Neuts (auto) 6.4 x10*3/uL (2.0-8.3) 04/13/23 05:19 Absolute Nucleated RBC 0.000 X10*3/uL (0.0-0.012) 04/17/23 06:43 Nucleated RBC % (auto) 0.0 /100WBC (0.0-0.2) 04/17/23 06:43 Smear Path Review SEE NOTE 04/16/23 05:42 ESR 2 MM/HR (0-20) 04/15/23 05:47 Absolute Retic 0.036 X10*6/uL (0.026-0.095) 04/16/23 08:28 Percent Retic 1.5 % (0.5-1.8) 04/16/23 08:28 Immature Retic Fraction 20.8 % (3.0-15.9) H 04/16/23 08:28 Retic Hgb Equivalent 33.7 pg (30.0-35.0) 04/16/23 08:28 PT 14.7 SEC (11.1-13.3) H 04/12/23 21:03 INR 1.2 (0.9-1.1) H 04/12/23 21:03 VBG pH 7.33 (7.32-7.43) 04/13/23 05:22 VBG pCO2 25 mmHg 04/13/23 05:22 VBG pO2 49 mmHg 04/13/23 05:22 VBG HCO3 13 mmol/L (22-26) L 04/13/23 05:22 VBG O2 Saturation 74.0 % 04/13/23 05:22 VBG Base Excess -10.4 mmol/L 04/13/23 05:22 Sodium 136 mmol/L (135-145) 04/18/23 06:37 Potassium 5.5 mmol/L (3.3-5.1) H D 04/18/23 06:37 Chloride 113 mmol/L (96-108) H 04/18/23 06:37 Carbon Dioxide 19 mmol/L (22-29) L 04/18/23 06:37 Anion Gap 10 (12-20) L 04/18/23 06:37 BUN 10 mg/dL (9-16) 04/18/23 06:37 Creatinine 0.54 mg/dL (0.5-1.4) 04/18/23 06:37 Estim Creat Clear Calc 87.6 04/18/23 06:37 Estimated GFR > 60 04/18/23 06:37 POC Glucose 70 mg/dL (60-115) 04/15/23 07:08 Random Glucose 104 mg/dL (60-115) 04/18/23 06:37 Fasting Glucose 74 mg/dL (60-99) 04/14/23 06:39 Lactic Acid 0.6 mmol/L (0.5-2.0) 04/12/23 21:03 Calcium 7.7 mg/dL (8.4-10.2) L 04/18/23 06:37 Phosphorus 2.4 mg/dL (2.7-4.5) L 04/18/23 06:37 Magnesium 2.0 mg/dL (1.6-2.6) 04/18/23 06:37 Iron 54 mcg/dL (30-160) 04/16/23 08:28 TIBC 79 mcg/dL (228-428) L 04/16/23 08:28 % Saturation 68 % (15-50) H 04/16/23 08:28 Unsat Iron Binding < 25 ug/dL 04/16/23 08:28 Ferritin 445 ng/mL (10-250) H 04/16/23 08:28 Total Bilirubin 0.4 mg/dL (0.0-1.0) 04/16/23 05:42 Direct Bilirubin 0.3 mg/dL (0.0-0.5) 04/16/23 05:42 AST 15 U/L (5-31) 04/16/23 05:42 ALT 16 U/L (0-31) 04/16/23 05:42 Alkaline Phosphatase 123 U/L (39-117) H 04/16/23 05:42 Lactate Dehydrogenase 236 U/L (122-220) H 04/17/23 06:43 Troponin I High Sens 4.6 ng/L (<3.5-17.0) 04/12/23 20:54 B-Natriuretic Peptide 20 pg/mL (<100) 04/12/23 21:04 Total Protein 4.0 g/dL (6.5-8.0) L 04/16/23 05:42 Albumin 2.0 g/dL (3.5-5.0) L 04/18/23 06:37 Triglycerides 80 mg/dL (<150) 04/15/23 13:17 Cholesterol 119 mg/dL (<200) 04/15/23 13:17 LDL Cholesterol, Calc 74 mg/dL (<100) 04/15/23 13:17 HDL Cholesterol 29 mg/dL (>40) L 04/15/23 13:17 Vitamin B12 1139 pg/mL (200-900) H 04/16/23 08:28 25-OH Vitamin D Total 15.5 ng/mL (>30) L 04/15/23 13:17 Folate 6.1 ng/mL (> or = 4.0) 04/16/23 08:28 Prolactin 13.9 ng/mL 04/13/23 01:55 Urine Color Dark Yellow 04/12/23 21:36 Urine Appearance Cloudy 04/12/23 21:36 Urine pH 5.5 (5.0-9.0) 04/12/23 21:36 Ur Specific [place] 1.020 (1.005-1.025) 04/12/23 21:36 Urine Protein Negative mg/dL (Neg-Trace) 04/12/23 21:36 Urine Glucose (UA) Negative mg/dL (Negative) 04/12/23 21:36 Urine Ketones Trace mg/dL (Negative) 04/12/23 21:36 Urine Blood Negative (Negative) 04/12/23 21:36 Urine Nitrite Negative (Negative) 04/12/23 21:36 Ur Leukocyte Esterase Small (1+) (Negative) H 04/12/23 21:36 Urine RBC 3-5 /HPF (0-2) H 04/12/23 21:36 Urine WBC 0-5 /HPF (0-5) 04/12/23 21:36 Ur Squamous Epith Cells 6-10 /HPF (0-2) 04/12/23 21:36 Urine Bacteria 4+ (None Seen) 04/12/23 21:36 Hyaline Casts 11-20 /LPF (0-2) 04/12/23 21:36 Stool Occult Blood NEGATIVE (NEGATIVE) 04/17/23 10:31 Urine Opiates Screen Not Detected (Not Detect) 04/12/23 21:36 Urine Fentanyl Screen Not Detected (Not Detect) 04/12/23 21:36 Ur Barbiturates Screen Not Detected (Not Detect) 04/12/23 21:36 Levetiracetam 35.8 mcg/mL (6.0-46.0) 04/13/23 01:55 Ur Phencyclidine Scrn Not Detected (Not Detect) 04/12/23 21:36 Ur Amphetamines Screen Not Detected (Not Detect) 04/12/23 21:36 U Benzodiazepines Scrn Not Detected (Not Detect) 04/12/23 21:36 Urine Cocaine Screen Not Detected (Not Detect) 04/12/23 21:36 U Marijuana (THC) Screen Not Detected (Not Detect) 04/12/23 21:36 COVID-19 (KELLY) Negative (Negative) 04/12/23 21:22 COVID-19 Clin Com See Note 04/12/23 21:22 Influenza Type A (YUSEF) Negative (Negative) 04/12/23 21:22 Influenza Type B (YUSEF) Negative (Negative) 04/12/23 21:22 Influenza A & B Note See Note 04/12/23 21:22 Blood Type O Positive 04/16/23 08:28 Antibody Screen NEGATIVE 04/16/23 08:28 Crossmatch See Detail 04/16/23 08:28 - Imaging Radiologist's impression: ITS Impressions Chest X-Ray 04/12/23 21:15 IMPRESSION: No active cardiopulmonary disease. Left eighth rib fracture of uncertain acuity and current significance. Chest CTA 04/12/23 22:47 IMPRESSION: No evidence of pulmonary embolism. No active cardiopulmonary disease. VTE: negative Abdomen/Pelvis CT 04/16/23 17:07 IMPRESSION: Constipation. Postsurgical changes from gastric bypass. 2 areas of dilated small bowel with small-bowel feces sign, 1 in the left upper quadrant and 1 in the right mid abdomen. Question small-bowel obstruction versus stasis. 2 areas of wall thickening of the proximal transverse colon. This may be artifactual due to underdistention. Correlation with colonoscopy findings recommended. Fleischner guidelines were followed. Assessment and Plan Patient Active problem list reviewed?: Yes (1) Acute on chronic anemia Status: Acute Assessment and plan: 1. This is a 57-year-old woman who is admitted for metabolic encephalopathy secondary to UTI and polypharmacy was noted to have worsening acute on chronic anemia. Since her gastric bypass surgery in 2019, she lost over 150 lb. She has chronic anemia, her baseline is between 9-10 gram/dL. In fact, she had a bone marrow biopsy in 2006 for anemia, hemoglobin back then was around 10 gram/dL. Bone marrow exam was normal. This acute drop in hemoglobin is probably dilutional. She has multifactorial reasons for anemia including malnutrition. She does not have any obvious hematinic deficiencies. CT angio of chest does not show any acute findings, I have recommended a CT abdomen/pelvis with contrast to rule out any underlying malignancy as a cause of her anemia and weight loss. There is no evidence of chronic kidney or liver disease. She has reticulocytopenia/leukopenia and thrombocytopenia which is probably related to her nutritional status. Consider HIV and hepatitis serologies if not done previously. LDH is mildly elevated. She appears slightly jaundiced. She could be developing hemolytic anemia secondary to antibiotics as well. Please monitor daily CBC, LDH and bilirubin in addition to other labs. I thank you for this consult, will follow with you. - Time Spent With Patient Time Spent with Patient (in minutes): 15 Comment: There is no evidence for bleeding. She has responede well to transfusion of 2 units of red cells.
[2023-04-18 11:02] VITALS: BP 110/58; PULSE 100; RESP 16; TEMP 36.6; O2SAT 99
[2023-04-18 16:00] VITALS: BP 120/69; PULSE 115; RESP 18; TEMP 36; O2SAT 98
[2023-04-18 20:00] VITALS: BP 106/64; PULSE 104; RESP 14; TEMP 36; O2SAT 99
[2023-04-18] MEDS: Topiramate 25 MG TABLET 50 MG PO (21:35)
[2023-04-18] MEDS: QUEtiapine Fumarate 25 MG TABLET PO (21:36)
[2023-04-18] MEDS: Parenteral Nutrition 1,680 ML 70 ML IV (21:36)
[2023-04-18] MEDS: oxyCODONE HCl Immed Release 5 MG TABLET PO (21:39)
--- NOTE | 2023-04-18 22:43 | PC.NURSE ---
midline to the right upper arm infiltrated with PPN, the new bag of PPN is running via pheripheral IV to the rt EJ. , DR Cordero was notified , cold compress applied , arm elevated
[2023-04-18 23:24] LABS: Zinc 26 mcg/dL (60-130)
[2023-04-18 23:30] VITALS: BP 108/58; PULSE 91; RESP 18; TEMP 36; O2SAT 100
[2023-04-19] VITALS (7 sets, daily range): BP systolic 93–113; BP diastolic 54–71; PULSE 98–109; RESP 18–20; TEMP 36–37.2; O2SAT 98–100
[2023-04-19] MEDS: Pantoprazole Sodium 40 MG/10 ML VIAL IVPUSH (06:02)
[2023-04-19 07:16] LABS: Anion Gap 9 (12-20); Blood Urea Nitrogen 11 mg/dL (9-16); Calcium 7.8 mg/dL (8.4-10.2); Carbon Dioxide 23 mmol/L (22-29); Chloride 110 mmol/L (96-108); Creatinine Clr Calc Pharmacy 92.8; Estimated Glomerular Filt Rate > 60; Glucose Random 111 mg/dL (60-115); Magnesium 1.9 mg/dL (1.6-2.6); Phosphorus 2.8 mg/dL (2.7-4.5); Potassium 4.3 mmol/L (3.3-5.1); Sodium 138 mmol/L (135-145)
[2023-04-19 07:17] LABS: Hematocrit 32.5 % (37.0-47.0); Hemoglobin 10.8 g/dl (12.0-16.0); Mean Corpuscular HGB Conc 33.2 g/dl (31.0-35.0); Mean Corpuscular Hemoglobin 29.6 pg (27.0-33.0); Mean Platelet Volume 10.4 fL (9.4-12.3); Red Blood Count 3.65 X10*6/uL (4.20-5.50); Red Cell Distribution Width 16.6 % (11.0-16.0); White Blood Count 6.4 X10*3/uL (4.8-10.8)
[2023-04-19 07:18] LABS: Platelet Count 51 X10*3/uL (160-400)
[2023-04-19] MEDS: 0.9 % Sodium Chloride Flush 3 ML SYRINGE IVFLUSH (09:12)
[2023-04-19] MEDS: Magnesium Oxide 400 MG TABLET PO (09:13)
[2023-04-19] MEDS: Dicyclomine HCl 10 MG CAPSULE PO (09:13)
[2023-04-19] MEDS: Lurasidone HCl 40 MG TABLET 120 MG PO (09:13)
[2023-04-19] MEDS: valACYclovir HCL 1,000 MG TABLET 1000 MG PO (09:13)
[2023-04-19] MEDS: Ascorbic Acid 500 MG TABLET PO (09:13)
[2023-04-19] MEDS: Cholecalciferol (Vitamin D3) 25 MCG TABLET PO (09:13)
[2023-04-19] MEDS: Nortriptyline HCl 25 MG CAPSULE PO ×2 (09:13→21:54)
[2023-04-19] MEDS: Fludrocortisone Acetate 0.1 MG TABLET PO (09:13)
[2023-04-19] MEDS: Multivitamin TABLET 1 TAB PO (09:13)
[2023-04-19] MEDS: Midodrine HCl 10 MG TABLET PO ×3 (09:13→21:54)
[2023-04-19] MEDS: levETIRAcetam 250 MG TABLET PO ×2 (09:13→21:54)
--- NOTE | 2023-04-19 11:01 | MHC.SL.SWA ---
Speech Pathologist Impression: Risk of aspiration, oropharyngeal dysphagia Risk of Aspiration Due to: Lethargy Dysphasia Diet Status: Pt is on Bariatric 6 diet, recommend UPGRADE solids to CHOPPED/ADVANCED (NDD3), continue with thin liquids, and pills whole/crushed with puree. Pt is able to feed herself, but requires total 1:1 supervision to monitor tolerance and provide cues as needed: small bites/sips, chew food well, moisten w/ sauce/gravy as needed, clear oral cavity before taking more bites, alternate solids/liquids. Liquid Consistency and Strategies for Safe Swallow: Liquid Intake Recommendation: Thin Liquid Intake Strategies: Small Sips Solid Food Consistency: Dietary Recommendations: Chopped/Advanced (NDD3) Oral Medication Intake: Crushed with Puree Please contact the pharmacy regarding appropriate crushable or liquid drug formulations that are available whenever modified delivery is recommended. Compensatory Strategies and Precautions to be Taken for Safe Swallow: Sitting Upright (90 deg) Double Swallow Alternate Liquids/Solids Rate of Ingestion Change Oral Check Avoid Specific Foods Supervision While Eating and Drinking for Safe Swallow: Total Supervision (1:1) Foods to Avoid: Mixed consistencies. Swallowing Recommended Treatments: Compens. Strategy Educat. Recommendation for Speech: Inpatient Speech Therapy Date Range for Service Req: Timeline to reassess: PRN Asw Specialist Clinican/Clinical Fellow: No Supervisory Statement: I have reviewed and agree with the student/clinical fellow's documentation: N/A Speech Language Pathologist: Fara Chambers M.A., CCC-DENTAL OFFICER
--- NOTE | 2023-04-19 11:03 | P.PNIM_ITS ---
Subjective Subjective Date of Service: 04/19/23 Interval History: Complaining of back pain, tolerating diet, no nausea, no vomiting took pills in applesauce, midline not functioning, had 1 bowel movement, no other acute issues Review of Systems All other system reviewed and negative. Physical Exam 2 Vital Signs: Vital Signs: Last Vital Signs Temp 98.0 F 04/19/23 08:00 Pulse 109 H 04/19/23 08:00 Resp 19 04/19/23 08:00 BP 113/54 L 04/19/23 08:00 Pulse Ox 100 04/19/23 08:00 O2 Del Method Room Air 04/19/23 08:00 BMI result Body Mass Index 19.0 Const: Other: Constitutional : Awake , cachetic, weak and frail Neck : Normal inspection, Supple, right IJ in place Cardiovascular : RRR, no JVP, no lower extremity edema Respiratory : good bilateral air entry, no crackles, wheezes or rhonchi Gastrointestinal: soft, Normal bowel sounds, Non tender Skin : Warm, Dry Neurological : Alert & oriented x3, No focal deficit but overall weakness Back stage II coccyx pressure ulcer Objective Data Active Medications Acetaminophen (Acetaminophen 325 Mg Tablet) 650 mg PO Q6H PRN PRN Reason: Pain, Mild (Pain Scale 1-3) Last Admin: 04/18/23 09:27 Dose: 650 mg Documented By: JACQUE Ascorbic Acid (Ascorbic Acid 500 Mg Tablet) 500 mg PO DAILY [facility] Last Admin: 04/19/23 09:13 Dose: 500 mg Documented By: JEANA Bisacodyl (Bisacodyl 10 Mg Supp.Rect) 10 mg IN DAILY PRN PRN Reason: Constipation Dicyclomine HCl (Dicyclomine Hcl 10 Mg Capsule) 10 mg PO DAILY [facility] Last Admin: 04/19/23 09:13 Dose: 10 mg Documented By: JEANA Fludrocortisone Acetate (Fludrocortisone Acetate 0.1 Mg Tablet) 0.1 mg PO DAILY [facility] Last Admin: 04/19/23 09:13 Dose: 0.1 mg Documented By: JEANA Nutrition (Parenteral) (Parenteral Nutrition) 1,680 mls @ 70 mls/hr IV .Q24H [facility]; Protocol Stop: 04/19/23 20:59 Last Admin: 04/18/23 21:36 Dose: 70 mls/hr Documented By: PANCHITO Levetiracetam (Levetiracetam 250 Mg Tablet) 250 mg PO BID [facility] Last Admin: 04/19/23 09:13 Dose: 250 mg Documented By: JEANA Lurasidone HCl (Lurasidone Hcl 40 Mg Tablet) 120 mg PO DAILY [facility] Last Admin: 04/19/23 09:13 Dose: 120 mg Documented By: JEANA Magnesium Oxide (Magnesium Oxide 400 Mg Tablet) 400 mg PO DAILY [facility] Last Admin: 04/19/23 09:13 Dose: 400 mg Documented By: JEANA Midodrine (Midodrine Hcl 10 Mg Tablet) 10 mg PO TID [facility] Last Admin: 04/19/23 09:13 Dose: 10 mg Documented By: JEANA Multivitamins/Vitamin C (Multivitamin Tablet) 1 tab PO DAILY [facility] Last Admin: 04/19/23 09:13 Dose: 1 tab Documented By: JEANA Nortriptyline HCl (Nortriptyline Hcl 25 Mg Capsule) 25 mg PO BID [facility] Last Admin: 04/19/23 09:13 Dose: 25 mg Documented By: JEANA Ondansetron HCl (Ondansetron Hcl 4 Mg/2 Ml Vial) 4 mg IVPUSH Q8H PRN PRN Reason: Nausea and Vomiting Pharmacy Consult (Consult Rx Parenteral Nutrition Ordering) 1 each MISCELLANE DAILY PRN PRN Reason: Consult order Polyethylene Glycol (Polyethylene Glycol 3350 17 Gm Powd.Pack) 17 gm PO DAILY [facility] Last Admin: 04/19/23 09:14 Dose: Not Given Documented By: JEANA Non-Admin Reason: pt having BMs Quetiapine Fumarate (Quetiapine Fumarate 25 Mg Tablet) 25 mg PO BEDTIME [facility] Last Admin: 04/18/23 21:36 Dose: 25 mg Documented By: PANCHITO Sodium Biphosphate/Sodium Phosphate (Sodium Phosphate,[place]-Dibasic 133 Ml Enema) 197 ml IN DAILY PRN PRN Reason: Constipation Sodium Chloride (0.9 % Sodium Chloride Flush 3 Ml Syringe) 3 ml IVFLUSH QSHIFT [facility] Last Admin: 04/19/23 09:12 Dose: 3 ml Documented By: JEANA Sodium Chloride (0.9 % Sodium Chloride Flush 10 Ml Syringe) 5 ml IVFLUSH TID [facility] Last Admin: 04/19/23 09:12 Dose: Not Given Documented By: JEANA Non-Admin Reason: midline infiltrated Spironolactone (Spironolactone 25 Mg Tablet) 25 mg PO DAILY [facility]; Protocol Last Admin: 04/13/23 09:00 Dose: 25 mg Documented By: MENDOZA Topiramate (Topiramate 25 Mg Tablet) 50 mg PO BEDTIME [facility] Last Admin: 04/18/23 21:35 Dose: 50 mg Documented By: PANCHITO Valacyclovir HCl (Valacyclovir Hcl 1,000 Mg Tablet) 1,000 mg PO DAILY [facility] Last Admin: 04/19/23 09:13 Dose: 1,000 mg Documented By: JEANA Vitamin D (Cholecalciferol (Vitamin D3) 25 Mcg Tablet) 25 mcg PO DAILY [facility] Last Admin: 04/19/23 09:13 Dose: 25 mcg Documented By: JEANA Labs 04/19/23 06:26 04/19/23 06:26 Labs: Laboratory Results - last 24 hr 04/15/23 04/19/23 04/19/23 13:17 06:26 06:26 MCV 89.0 MCH 29.6 MCHC 33.2 RDW 16.6 H Plt Count 51 L D MPV 10.4 Absolute Nucleated RBC 0.000 Nucleated RBC % (auto) 0.0 Anion Gap Cancelled 9 L Estim Creat Clear Calc Cancelled Estimated GFR Random Glucose Calcium Phosphorus Magnesium Albumin Zinc 26 L 04/19/23 04/19/23 04/19/23 06:26 06:26 06:26 MCV MCH MCHC RDW Plt Count MPV Absolute Nucleated RBC Nucleated RBC % (auto) Anion Gap Estim Creat Clear Calc 92.8 Estimated GFR Cancelled > 60 Random Glucose Cancelled 111 Calcium Cancelled Phosphorus Magnesium Albumin Zinc 04/19/23 06:26 MCV MCH MCHC RDW Plt Count MPV Absolute Nucleated RBC Nucleated RBC % (auto) Anion Gap Estim Creat Clear Calc Estimated GFR Random Glucose Calcium 7.8 L Phosphorus 2.8 Magnesium 1.9 Albumin 2.0 L Zinc Assessment and Plan (1) Major depressive disorder, recurrent: Status: Acute (2) UTI (urinary tract infection): Status: Acute (3) Acute on chronic anemia: Status: Acute (4) Toxic metabolic encephalopathy: Status: Acute (5) Metabolic acidosis: Status: Acute Plan 56F PMH gatric bypass, SBOs, hld, depression, DM, migraines, trung, presented with ams and hypoxia Acute on chronic anemia Hematocrit improved and remains stable after 2 units of packed RBC No evidence of bleeding, -ve occult likely dilutional as she was significantly dehydrated follow H&H Acute hyperkalemia s/p Lokelma potassium improved to 4.3 follow BMP Pancytopenia likely from malnutrition Hematology input appreciated, CT Abd showed 2 areas of dilated small bowels with small bowel feces sign in the left upper quadrant and in the right mid abdomen question small bowel obstruction versus stasis 2 areas of wall thickening of proximal transverse colon likely artifactual due to under distension LDH 236 mildly elevated and normal bilirubin Continue Multivitamins, stable hematocrit after blood transfusion platelet remains low no active bleeding noted, follow CBC acute toxic metabolic encephalopathy 2/2 UTI, polypharmacy improved Finished IV Rocephin for 5 days, Ecoli in urine cultures moderate-severe protein calorie malnutrition due to excessive weight loss/malabsorption s/p gastric bypass Being followed by hygiene teacher tolerating 75% of diet, continue IV PPN encourage PO intake Seen by bariatric surgery they signed off since no surgical etiology was found, CT abdomen and pelvis report is available less likely obstruction, moving bowels no abdominal pain continue MiraLax Midline nonfunctioning, will consult IR for removal of midline continue PPN through TLC. acute hypoxic respiratory failure unclear etiology, resolved on room air, cxr unremarkable chronic non anion gap metabolic acidosis due to acetozolamide dc azetozolamide, continue oral bicarb, is stable bicarb history of DM,TRUNG, htn resolved w weight loss dvt prophylaxis on compression therapy Disposition return to snf reason for continued hospitalization for nutritional status on IV PPN and close electrolyte and CBC monitoring. Quality Stroke Does the patient have a stroke diagnosis?: No VTE Prior VTE?: No VTE Risk Level:: Medical - moderate - high VTE Device Contraindication: Treatment Not Indicated VTE Drug Contraindication: N/A - Med Ordered
--- NOTE | 2023-04-19 11:07 | MHC.CLN ---
F/U PO INTAKE 75% X 3 MEALS CONTINUES WITH BARIATRIC PHASE 6 DIET, UPGRADED TO CHOPPED PER MANAGER PERSONAL TODAY FROM [facility] AND PPN CONTINUES RECEIVES ENSURE MAX HIGH PROTEIN ON MEAL TRAY TID PROVIDES 450 KCALS, 90G PROTEIN IF CONSUMED 100% LABS REVIEWED; COMMUNICATED WITH PHARMACY RECOMMEND CONTINUE PPN AT MAX GOAL RATE: PPN AT 70ML/HR, WITH 56 G LIPIDS (1.19 G/KG), PROVIDES 1417 TOTAL KCALS (30 KCALS/KG), 168G DEXTROSE, 71G PROTEIN (1.5 G/KG) REPLETE LYTES NEEDED STAGE 1 COCCYX-NOW STAGE 2 PER NSG-PPN TO PROMOTE WOUND HEALING AT 1.5G/KG STRICT PO INTAKE; ENCOURAGE SUPPLEMENT
[2023-04-19] MEDS: Acetaminophen 325 MG TABLET 650 MG PO ×2 (12:49→21:53)
--- NOTE | 2023-04-19 15:25 | MHC.CM.PN ---
Pt not yet medically cleared for DC. DC plan is return to [facility], update PN sent today. CM to follow and assist with DC plan.
[2023-04-19] MEDS: QUEtiapine Fumarate 25 MG TABLET PO (21:54)
[2023-04-19] MEDS: Topiramate 25 MG TABLET 50 MG PO (21:54)
[2023-04-19] MEDS: Parenteral Nutrition 1,680 ML 70 ML IV (21:54)
[2023-04-20 00:47] LABS: Vitamin B1 <6 nmol/L (8-30)
[2023-04-20 03:47] VITALS: BP 99/58; PULSE 93; RESP 18; TEMP 36.2; O2SAT 98
[2023-04-20 06:53] LABS: Anion Gap 8 (12-20); Blood Urea Nitrogen 15 mg/dL (9-16); Carbon Dioxide 25 mmol/L (22-29); Chloride 112 mmol/L (96-108); Creatinine Clr Calc Pharmacy 96.6; Estimated Glomerular Filt Rate > 60; Glucose Random 88 mg/dL (60-115); Magnesium 1.9 mg/dL (1.6-2.6); Phosphorus 2.9 mg/dL (2.7-4.5); Potassium 4.1 mmol/L (3.3-5.1); Sodium 141 mmol/L (135-145)
[2023-04-20 07:15] VITALS: BP 99/49; PULSE 88; RESP 19; TEMP 36.6
[2023-04-20] MEDS: Magnesium Oxide 400 MG TABLET PO (08:16)
[2023-04-20] MEDS: Multivitamin TABLET 1 TAB PO (08:16)
[2023-04-20] MEDS: Nortriptyline HCl 25 MG CAPSULE PO ×2 (08:16→21:08)
[2023-04-20] MEDS: levETIRAcetam 250 MG TABLET PO ×2 (08:16→21:08)
[2023-04-20] MEDS: Lurasidone HCl 40 MG TABLET 120 MG PO (08:16)
[2023-04-20] MEDS: valACYclovir HCL 1,000 MG TABLET 1000 MG PO (08:16)
[2023-04-20] MEDS: Ascorbic Acid 500 MG TABLET PO (08:16)
[2023-04-20] MEDS: Fludrocortisone Acetate 0.1 MG TABLET PO (08:16)
[2023-04-20] MEDS: Dicyclomine HCl 10 MG CAPSULE PO (08:16)
[2023-04-20] MEDS: Midodrine HCl 10 MG TABLET PO ×3 (08:16→21:08)
[2023-04-20] MEDS: Cholecalciferol (Vitamin D3) 25 MCG TABLET PO (08:16)
[2023-04-20 08:54] LABS: Vitamin A 8 mcg/dL (38-98)
--- NOTE | 2023-04-20 09:35 | HO.REMOVAL ---
Removal of PICC/Midline Removal of PICC/Midline: Removal of PICC/Midline: 1. Date: 04/20/23 2. Reason removed: no longer needed 3. Inserted length: 8cm 4. Removed length: 8cm 5. A dressing was placed over the site upon removal. No edema or bleeding at the site. PT lary well
[2023-04-20 11:37] VITALS: BP 104/63; PULSE 95; RESP 19; TEMP 36.7; O2SAT 100
--- NOTE | 2023-04-20 11:46 | P.PNIM_ITS ---
Subjective Subjective Date of Service: 04/20/23 Interval History: Patient feeling better today, taking 2 Ensure cans daily, eating breakfast, midline removed this morning since was not functioning, denies fever, no chills, denies nausea, no vomiting, no abdominal pain, no other acute issues overnight. Review of Systems All other system reviewed and negative . Physical Exam 2 Vital Signs: Vital Signs: Last Vital Signs Temp 98.0 F 04/20/23 11:37 Pulse 95 04/20/23 11:37 Resp 19 04/20/23 11:37 BP 104/63 04/20/23 11:37 Pulse Ox 100 04/20/23 11:37 O2 Del Method Room Air 04/20/23 11:37 FiO2 100 04/20/23 07:15 BMI result Body Mass Index 19.0 Const: Other: Constitutional : Awake , alert more interactive, cachetic. Neck : Normal inspection, Supple, right IJ in place Cardiovascular : RRR, no JVP, no lower extremity edema Respiratory : good bilateral air entry, no crackles, wheezes or rhonchi Gastrointestinal: soft, Normal bowel sounds, Non tender Skin : Warm, Dry Neurological : Alert & oriented x3, No focal deficit Back stage II coccyx pressure ulcer Psych appropriate affect Objective Data Active Medications Acetaminophen (Acetaminophen 325 Mg Tablet) 650 mg PO Q6H PRN PRN Reason: Pain, Mild (Pain Scale 1-3) Last Admin: 04/19/23 21:53 Dose: 650 mg Documented By: ANTWAN Ascorbic Acid (Ascorbic Acid 500 Mg Tablet) 500 mg PO DAILY [facility] Last Admin: 04/20/23 08:16 Dose: 500 mg Documented By: BROMayank Bisacodyl (Bisacodyl 10 Mg Supp.Rect) 10 mg IA DAILY PRN PRN Reason: Constipation Dicyclomine HCl (Dicyclomine Hcl 10 Mg Capsule) 10 mg PO DAILY [facility] Last Admin: 04/20/23 08:16 Dose: 10 mg Documented By: BOBBY Fludrocortisone Acetate (Fludrocortisone Acetate 0.1 Mg Tablet) 0.1 mg PO DAILY [facility] Last Admin: 04/20/23 08:16 Dose: 0.1 mg Documented By: BOBBY Nutrition (Parenteral) (Parenteral Nutrition) 1,680 mls @ 70 mls/hr IV .Q24H [facility]; Protocol Stop: 04/20/23 20:59 Last Admin: 04/19/23 21:54 Dose: 70 mls/hr Documented By: ANTWAN Nutrition (Parenteral) (Parenteral Nutrition) 1,680 mls @ 70 mls/hr IV .Q24H [facility]; Protocol Stop: 04/22/23 20:59 Levetiracetam (Levetiracetam 250 Mg Tablet) 250 mg PO BID [facility] Last Admin: 04/20/23 08:16 Dose: 250 mg Documented By: BOBBY Lurasidone HCl (Lurasidone Hcl 40 Mg Tablet) 120 mg PO DAILY [facility] Last Admin: 04/20/23 08:16 Dose: 120 mg Documented By: BOBBY Magnesium Oxide (Magnesium Oxide 400 Mg Tablet) 400 mg PO DAILY [facility] Last Admin: 04/20/23 08:16 Dose: 400 mg Documented By: BOBBY Midodrine (Midodrine Hcl 10 Mg Tablet) 10 mg PO TID [facility] Last Admin: 04/20/23 08:16 Dose: 10 mg Documented By: BOBBY Multivitamins/Vitamin C (Multivitamin Tablet) 1 tab PO DAILY [facility] Last Admin: 04/20/23 08:16 Dose: 1 tab Documented By: BOBBY Nortriptyline HCl (Nortriptyline Hcl 25 Mg Capsule) 25 mg PO BID [facility] Last Admin: 04/20/23 08:16 Dose: 25 mg Documented By: BOBBY Ondansetron HCl (Ondansetron Hcl 4 Mg/2 Ml Vial) 4 mg IVPUSH Q8H PRN PRN Reason: Nausea and Vomiting Pharmacy Consult (Consult Rx Parenteral Nutrition Ordering) 1 each MISCELLANE DAILY PRN PRN Reason: Consult order Polyethylene Glycol (Polyethylene Glycol 3350 17 Gm Powd.Pack) 17 gm PO DAILY [facility] Last Admin: 04/20/23 08:18 Dose: Not Given Documented By: BOBBY Non-Admin Reason: Patient Condition Contraindication Quetiapine Fumarate (Quetiapine Fumarate 25 Mg Tablet) 25 mg PO BEDTIME [facility] Last Admin: 04/19/23 21:54 Dose: 25 mg Documented By: ANTWAN Sodium Biphosphate/Sodium Phosphate (Sodium Phosphate,[place]-Dibasic 133 Ml Enema) 197 ml IA DAILY PRN PRN Reason: Constipation Sodium Chloride (0.9 % Sodium Chloride Flush 3 Ml Syringe) 3 ml IVFLUSH QSHIFT [facility] Last Admin: 04/20/23 08:18 Dose: Not Given Documented By: BOBBY Non-Admin Reason: IV Running Sodium Chloride (0.9 % Sodium Chloride Flush 10 Ml Syringe) 5 ml IVFLUSH TID [facility] Last Admin: 04/20/23 08:18 Dose: Not Given Documented By: BOBBY Non-Admin Reason: Patient Refused Spironolactone (Spironolactone 25 Mg Tablet) 25 mg PO DAILY [facility]; Protocol Last Admin: 04/13/23 09:00 Dose: 25 mg Documented By: MENDOZA Topiramate (Topiramate 25 Mg Tablet) 50 mg PO BEDTIME [facility] Last Admin: 04/19/23 21:54 Dose: 50 mg Documented By: ANTWAN Valacyclovir HCl (Valacyclovir Hcl 1,000 Mg Tablet) 1,000 mg PO DAILY [facility] Last Admin: 04/20/23 08:16 Dose: 1,000 mg Documented By: BOBBY Vitamin D (Cholecalciferol (Vitamin D3) 25 Mcg Tablet) 25 mcg PO DAILY [facility] Last Admin: 04/20/23 08:16 Dose: 25 mcg Documented By: BOBBY Labs 04/19/23 06:26 04/20/23 06:28 Labs: Laboratory Results - last 24 hr 04/15/23 04/20/23 13:17 06:28 Hold Purple Top SEE NOTE Anion Gap 8 L Estim Creat Clear Calc 96.6 Estimated GFR > 60 Random Glucose 88 Calcium 8.0 L Phosphorus 2.9 Magnesium 1.9 Albumin 2.0 L Vitamin A 8 L Vitamin B1 <6 L Assessment and Plan (1) Major depressive disorder, recurrent: Status: Acute (2) UTI (urinary tract infection): Status: Acute (3) Acute on chronic anemia: Status: Acute (4) Toxic metabolic encephalopathy: Status: Acute (5) Metabolic acidosis: Status: Acute Plan 56F PMH gatric bypass, SBOs, hld, depression, DM, migraines, trung, presented with ams and hypoxia Acute on chronic anemia Hematocrit improved and remains stable after 2 units of packed RBC No evidence of bleeding, -ve occult likely dilutional as she was significantly dehydrated follow H&H Acute hyperkalemia s/p Lokelma potassium improved to 4.3 follow BMP Pancytopenia likely from malnutrition Hematology input appreciated, CT Abd showed 2 areas of dilated small bowels with small bowel feces sign in the left upper quadrant and in the right mid abdomen question small bowel obstruction versus stasis 2 areas of wall thickening of proximal transverse colon likely artifactual due to under distension LDH 236 mildly elevated and normal bilirubin. Continue Multivitamins, stable hematocrit after blood transfusion platelet remains low no active bleeding noted, follow CBC acute toxic metabolic encephalopathy 2/2 UTI, polypharmacy Resolved Finished IV Rocephin for 5 days, Ecoli in urine cultures moderate-severe protein calorie malnutrition due to excessive weight loss/malabsorption s/p gastric bypass Being followed by gummed tape press operator tolerating 75% of diet, continue IV PPN encourage PO intake Seen by bariatric surgery they signed off since no surgical etiology was found, CT abdomen and pelvis report is available less likely obstruction, moving bowels ,no abdominal pain continue MiraLax Midline nonfunctioning removed this morning continue PPN through TLC Will DC PICC line once by mouth intake improves acute hypoxic respiratory failure unclear etiology, resolved on room air, cxr unremarkable chronic non anion gap metabolic acidosis Bicarb improved to 25, was likely due to acetozolamide, discontinued on admission. history of DM,TRUNG, htn resolved w weight loss dvt prophylaxis on compression therapy Disposition return to snf being followed by Physical therapy, patient motivated to participate in physical therapy. reason for continued hospitalization for nutritional status on IV PPN and close electrolyte and CBC monitoring. Quality Stroke Does the patient have a stroke diagnosis?: No VTE Prior VTE?: No VTE Risk Level:: Medical - moderate - high VTE Device Contraindication: Treatment Not Indicated VTE Drug Contraindication: N/A - Med Ordered
[2023-04-20 16:00] VITALS: BP 109/56; PULSE 88; RESP 18; TEMP 36.8; O2SAT 100
[2023-04-20 19:41] VITALS: BP 104/55; PULSE 86; RESP 18; TEMP 36.8; O2SAT 99
[2023-04-20] MEDS: Topiramate 25 MG TABLET 50 MG PO (21:08)
[2023-04-20] MEDS: Acetaminophen 325 MG TABLET 650 MG PO (21:08)
[2023-04-20] MEDS: QUEtiapine Fumarate 25 MG TABLET PO (21:08)
[2023-04-20] MEDS: Parenteral Nutrition 1,680 ML 70 ML IV (21:11)
[2023-04-20] MEDS: 0.9 % Sodium Chloride Flush 3 ML SYRINGE IVFLUSH (21:14)
[2023-04-20] MEDS: 0.9 % Sodium Chloride Flush 10 ML SYRINGE 5 ML IVFLUSH (21:25)
[2023-04-21] VITALS (7 sets, daily range): BP systolic 98–127; BP diastolic 52–89; PULSE 88–98; RESP 17–20; TEMP 36.1–37.7; O2SAT 96–100
[2023-04-21 08:31] LABS: Albumin Level 2.1 g/dL (3.5-5.0); Anion Gap 9 (12-20); Blood Urea Nitrogen 18 mg/dL (9-16); Calcium 7.9 mg/dL (8.4-10.2); Carbon Dioxide 22 mmol/L (22-29); Chloride 111 mmol/L (96-108); Creatinine Clr Calc Pharmacy 107.6; Estimated Glomerular Filt Rate > 60; Glucose Random 78 mg/dL (60-115); Magnesium 2.1 mg/dL (1.6-2.6); Phosphorus 2.8 mg/dL (2.7-4.5); Potassium 3.6 mmol/L (3.3-5.1); Sodium 138 mmol/L (135-145)
--- NOTE | 2023-04-21 09:13 | HO.PM.IMPN ---
Subjective Subjective Date of Service: 04/21/23 Interval History: Complaining of lower back discomfort, ate 100% of breakfast this morning, denies nausea vomiting, no diarrhea, no abdominal pain has been doing bed mobility exercises, no acute events overnight. Review of Systems All other system reviewed and negative. Physical Exam Vital Signs: Vital Signs: Last Vital Signs Temp 99.9 F 04/21/23 07:29 Pulse 96 04/21/23 07:29 Resp 18 04/21/23 07:29 BP 98/60 04/21/23 07:29 Pulse Ox 100 04/21/23 07:29 O2 Del Method Room Air 04/21/23 07:29 FiO2 100 04/20/23 07:15 BMI result Body Mass Index 19.0 Const: Other: Constitutional : Awake , alert , no acute distress, cachetic. Neck : Normal inspection, Supple, right IJ in place Cardiovascular : RRR, no JVP, no lower extremity edema Respiratory : good bilateral air entry, no crackles, wheezes or rhonchi Gastrointestinal: soft, Normal bowel sounds, Non tender Skin : Warm, Dry Neurological : Alert & oriented x3, No focal deficit Back stage II coccyx pressure ulcer Psych appropriate affect Objective Data Active Medications Acetaminophen (Acetaminophen 325 Mg Tablet) 650 mg PO Q6H PRN PRN Reason: Pain, Mild (Pain Scale 1-3) Last Admin: 04/20/23 21:08 Dose: 650 mg Documented By: ANTWAN Ascorbic Acid (Ascorbic Acid 500 Mg Tablet) 500 mg PO DAILY [facility] Last Admin: 04/20/23 08:16 Dose: 500 mg Documented By: BOBBY Bisacodyl (Bisacodyl 10 Mg Supp.Rect) 10 mg [place] DAILY PRN PRN Reason: Constipation Dicyclomine HCl (Dicyclomine Hcl 10 Mg Capsule) 10 mg PO DAILY [facility] Last Admin: 04/20/23 08:16 Dose: 10 mg Documented By: BOBBY Fludrocortisone Acetate (Fludrocortisone Acetate 0.1 Mg Tablet) 0.1 mg PO DAILY [facility] Last Admin: 04/20/23 08:16 Dose: 0.1 mg Documented By: BOBBY Nutrition (Parenteral) (Parenteral Nutrition) 1,680 mls @ 70 mls/hr IV .Q24H [facility]; Protocol Stop: 04/22/23 20:59 Last Admin: 04/20/23 21:11 Dose: 70 mls/hr Documented By: ANTWAN Levetiracetam (Levetiracetam 250 Mg Tablet) 250 mg PO BID [facility] Last Admin: 04/20/23 21:08 Dose: 250 mg Documented By: ANTWAN Lurasidone HCl (Lurasidone Hcl 40 Mg Tablet) 120 mg PO DAILY [facility] Last Admin: 04/20/23 08:16 Dose: 120 mg Documented By: BOBBY Magnesium Oxide (Magnesium Oxide 400 Mg Tablet) 400 mg PO DAILY [facility] Last Admin: 04/20/23 08:16 Dose: 400 mg Documented By: BOBBY Midodrine (Midodrine Hcl 10 Mg Tablet) 10 mg PO TID [facility] Last Admin: 04/20/23 21:08 Dose: 10 mg Documented By: ANTWAN Multivitamins/Vitamin C (Multivitamin Tablet) 1 tab PO DAILY [facility] Last Admin: 04/20/23 08:16 Dose: 1 tab Documented By: BOBBY Nortriptyline HCl (Nortriptyline Hcl 25 Mg Capsule) 25 mg PO BID [facility] Last Admin: 04/20/23 21:08 Dose: 25 mg Documented By: ANTWAN Ondansetron HCl (Ondansetron Hcl 4 Mg/2 Ml Vial) 4 mg IVPUSH Q8H PRN PRN Reason: Nausea and Vomiting Pharmacy Consult (Consult Rx Parenteral Nutrition Ordering) 1 each MISCELLANE DAILY PRN PRN Reason: Consult order Polyethylene Glycol (Polyethylene Glycol 3350 17 Gm Powd.Pack) 17 gm PO DAILY [facility] Last Admin: 04/20/23 08:18 Dose: Not Given Documented By: BOBBY Non-Admin Reason: Patient Condition Contraindication Quetiapine Fumarate (Quetiapine Fumarate 25 Mg Tablet) 25 mg PO BEDTIME [facility] Last Admin: 04/20/23 21:08 Dose: 25 mg Documented By: ANTWAN Sodium Biphosphate/Sodium Phosphate (Sodium Phosphate,[place]-Dibasic 133 Ml Enema) 197 ml [place] DAILY PRN PRN Reason: Constipation Sodium Chloride (0.9 % Sodium Chloride Flush 3 Ml Syringe) 3 ml IVFLUSH QSHIFT [facility] Last Admin: 04/20/23 21:14 Dose: 3 ml Documented By: ANTWAN Sodium Chloride (0.9 % Sodium Chloride Flush 10 Ml Syringe) 5 ml IVFLUSH TID [facility] Last Admin: 04/20/23 21:25 Dose: 5 ml Documented By: ANTWAN Spironolactone (Spironolactone 25 Mg Tablet) 25 mg PO DAILY [facility]; Protocol Last Admin: 04/13/23 09:00 Dose: 25 mg Documented By: MENDOZA Topiramate (Topiramate 25 Mg Tablet) 50 mg PO BEDTIME [facility] Last Admin: 04/20/23 21:08 Dose: 50 mg Documented By: ANTWAN Valacyclovir HCl (Valacyclovir Hcl 1,000 Mg Tablet) 1,000 mg PO DAILY [facility] Last Admin: 04/20/23 08:16 Dose: 1,000 mg Documented By: BOBBY Vitamin D (Cholecalciferol (Vitamin D3) 25 Mcg Tablet) 25 mcg PO DAILY [facility] Last Admin: 04/20/23 08:16 Dose: 25 mcg Documented By: BOBBY Labs 04/19/23 06:26 04/21/23 07:50 Labs: Laboratory Results - last 24 hr 04/21/23 07:50 Hold Purple Top SEE NOTE Anion Gap 9 L Estim Creat Clear Calc 107.6 Estimated GFR > 60 Random Glucose 78 Calcium 7.9 L Phosphorus 2.8 Magnesium 2.1 Albumin 2.1 L Assessment and Plan (1) Major depressive disorder, recurrent: Status: Acute (2) UTI (urinary tract infection): Status: Acute (3) Acute on chronic anemia: Status: Acute (4) Toxic metabolic encephalopathy: Status: Acute (5) Metabolic acidosis: Status: Acute Plan 56F PMH gatric bypass, SBOs, hld, depression, DM, migraines, trung, presented with ams and hypoxia Acute on chronic anemia Hematocrit improved and remains stable after 2 units of packed RBC No evidence of bleeding, -ve occult , was likely dilutional and due to malnutrition follow H&H Acute hyperkalemia s/p Lokelma potassium improved to 4.3, follow BMP Pancytopenia likely from malnutrition Hematology input appreciated, CT Abd showed no acute pathology LDH 236 mildly elevated and normal bilirubin. Continue Multivitamins, stable hematocrit after blood transfusion platelet remains low, no active bleeding noted, follow CBC acute toxic metabolic encephalopathy 2/2 UTI, polypharmacy Resolved,s/p IV Rocephin for 5 days, Ecoli in urine cultures moderate-severe protein calorie malnutrition due to excessive weight loss/malabsorption s/p gastric bypass Being followed by telesales advisor tolerating 75% of diet, continue IV PPN via TLC Seen by bariatric surgery they signed off since no surgical etiology was found, CT abdomen and pelvis less likely obstruction, moving bowels ,no abdominal pain Will discuss with telesales advisor regarding ? calorie count ,and for continued need for PPN, continue MiraLax acute hypoxic respiratory failure unclear etiology, resolved on room air, cxr unremarkable chronic non anion gap metabolic acidosis Bicarb improved to 25, was likely due to acetozolamide, discontinued on admission. history of DM,TRUNG, htn resolved w weight loss dvt prophylaxis on compression therapy Disposition return to snf being followed by Physical therapy, patient motivated to participate in physical therapy. reason for continued hospitalization for nutritional status on IV PPN and close electrolyte and CBC monitoring. Quality Stroke Does the patient have a stroke diagnosis?: No VTE Prior VTE?: No VTE Risk Level:: Medical - moderate - high VTE Device Contraindication: Treatment Not Indicated VTE Drug Contraindication: N/A - Med Ordered
[2023-04-21] MEDS: Acetaminophen 325 MG TABLET 650 MG PO ×3 (09:28→21:46)
[2023-04-21] MEDS: Fludrocortisone Acetate 0.1 MG TABLET PO (09:29)
[2023-04-21] MEDS: Nortriptyline HCl 25 MG CAPSULE PO ×2 (09:29→21:28)
[2023-04-21] MEDS: Multivitamin TABLET 1 TAB PO (09:29)
[2023-04-21] MEDS: Ascorbic Acid 500 MG TABLET PO (09:29)
[2023-04-21] MEDS: valACYclovir HCL 1,000 MG TABLET 1000 MG PO (09:30)
[2023-04-21] MEDS: levETIRAcetam 250 MG TABLET PO ×2 (09:30→21:27)
[2023-04-21] MEDS: polyethylene glycoL 3350 17 GM POWD.PACK PO (09:30)
[2023-04-21] MEDS: Midodrine HCl 10 MG TABLET PO ×3 (09:30→21:28)
[2023-04-21] MEDS: Magnesium Oxide 400 MG TABLET PO (09:30)
[2023-04-21] MEDS: Lurasidone HCl 40 MG TABLET 120 MG PO (09:30)
[2023-04-21] MEDS: Cholecalciferol (Vitamin D3) 25 MCG TABLET PO (09:30)
[2023-04-21] MEDS: Dicyclomine HCl 10 MG CAPSULE PO (09:30)
--- NOTE | 2023-04-21 10:04 | MHC.CLN ---
F/U PO INTAKE 100% OF BREAKFAST TODAY PT REPORTED SHE DRANK 3 ENSURE MAX SHAKES STARTING YESTERDAY CONTINUES WITH BARIATRIC PHASE 6 DIET, GROUND CONSISTENCY AND PPN CONTINUES RECEIVES ENSURE MAX HIGH PROTEIN ON MEAL TRAY TID PROVIDES 450 KCALS, 90G PROTEIN IF CONSUMED 100% PT IN GOOD SPIRITS, SPEAKING IN FULL SENTENCES AND REPORTED SHE FEELS SO-SO AND UNDERSTANDS SHE NEEDS TO DRINK HER PROTEIN SHAKES 3 TIMES PER DAY AND CONTINUE EATING HER MEALS. LABS REVIEWED; COMMUNICATED WITH PHARMACY RECOMMEND CONTINUE PPN AT MAX GOAL RATE: PPN AT 70ML/HR, WITH 56 G LIPIDS (1.19 G/KG), PROVIDES 1417 TOTAL KCALS (30 KCALS/KG), 168G DEXTROSE, 71G PROTEIN (1.5 G/KG) REPLETE LYTES NEEDED STAGE 1 COCCYX-NOW STAGE 2 PER NSG-PPN TO PROMOTE WOUND HEALING AT 1.5G/KG STRICT PO INTAKE; ENCOURAGE SUPPLEMENT 3 SHAKES PER DAY
--- NOTE | 2023-04-21 15:01 | MHC.CM.PN ---
Pt not yet ready for DC. Plan is for her to return to [facility]. CM to follow and assist with DC plan.
[2023-04-21] MEDS: Topiramate 25 MG TABLET 50 MG PO (21:27)
[2023-04-21] MEDS: Parenteral Nutrition 1,680 ML 70 ML IV (21:27)
[2023-04-21] MEDS: 0.9 % Sodium Chloride Flush 3 ML SYRINGE IVFLUSH (21:28)
[2023-04-21] MEDS: QUEtiapine Fumarate 25 MG TABLET PO (21:28)
[2023-04-22] VITALS (7 sets, daily range): BP systolic 85–110; BP diastolic 48–60; PULSE 84–108; RESP 16–20; TEMP 36.2–37.1; O2SAT 98–100
[2023-04-22] MEDS: 0.9 % Sodium Chloride Flush 10 ML SYRINGE 5 ML IVFLUSH ×2 (00:39→21:06)
[2023-04-22 06:12] LABS: Anion Gap 9 (12-20); Blood Urea Nitrogen 21 mg/dL (9-16); Calcium 7.9 mg/dL (8.4-10.2); Carbon Dioxide 23 mmol/L (22-29); Chloride 111 mmol/L (96-108); Creatinine Clr Calc Pharmacy 112.7; Estimated Glomerular Filt Rate > 60; Glucose Random 98 mg/dL (60-115); Magnesium 1.9 mg/dL (1.6-2.6); Phosphorus 3.4 mg/dL (2.7-4.5); Potassium 3.9 mmol/L (3.3-5.1); Sodium 139 mmol/L (135-145); Triglycerides 244 mg/dL (<150)
[2023-04-22] MEDS: Nortriptyline HCl 25 MG CAPSULE PO ×2 (09:19→21:05)
[2023-04-22] MEDS: levETIRAcetam 250 MG TABLET PO ×2 (09:19→21:05)
[2023-04-22] MEDS: Multivitamin TABLET 1 TAB PO (09:20)
[2023-04-22] MEDS: valACYclovir HCL 1,000 MG TABLET 1000 MG PO (09:20)
[2023-04-22] MEDS: Lurasidone HCl 40 MG TABLET 120 MG PO (09:20)
[2023-04-22] MEDS: Magnesium Oxide 400 MG TABLET PO (09:20)
[2023-04-22] MEDS: Cholecalciferol (Vitamin D3) 25 MCG TABLET PO (09:20)
[2023-04-22] MEDS: Midodrine HCl 10 MG TABLET PO ×3 (09:20→21:06)
[2023-04-22] MEDS: Dicyclomine HCl 10 MG CAPSULE PO (09:20)
[2023-04-22] MEDS: Fludrocortisone Acetate 0.1 MG TABLET PO (09:20)
[2023-04-22] MEDS: Ascorbic Acid 500 MG TABLET PO (09:20)
--- NOTE | 2023-04-22 09:52 | MHC.CLN ---
F/U PO INTAKE 75% X2 MEALS REVIEWED LABS NOTED TRIGS 244 CONTINUES WITH BARIATRIC PHASE 6 DIET, GROUND CONSISTENCY AND PPN CONTINUES RECEIVES ENSURE MAX HIGH PROTEIN ON MEAL TRAY TID PROVIDES 450 KCALS, 90G PROTEIN IF CONSUMED 100% PT UNDERSTANDS SHE NEEDS TO DRINK HER PROTEIN SHAKES 3 TIMES PER DAY AND CONTINUE EATING HER MEALS DISCUSSED WITH PHARMACY RECOMMEND CONTINUE PPN AT MAX GOAL RATE: PPN AT 70ML/HR, WITH 56 G LIPIDS (1.19 G/KG), PROVIDES 1417 TOTAL KCALS (30 KCALS/KG), 168G DEXTROSE, 71G PROTEIN (1.5 G/KG) REPLETE LYTES NEEDED STAGE 2 COCCYX-PPN TO PROMOTE WOUND HEALING AT 1.5G/KG STRICT PO INTAKE; ENCOURAGE SUPPLEMENT 3 SHAKES PER DAY
[2023-04-22] MEDS: ondansetron HCL 4 MG/2 ML VIAL IVPUSH (11:54)
--- NOTE | 2023-04-22 12:25 | HO.PM.IMPN ---
Subjective Subjective Date of Service: 04/22/23 Interval History: For feeling good this morning had 100% of breakfast, finish 1-1/2 Ensure can yesterday, today's motivated finished all 3 cans, denies pain, no nausea, no vomiting, no abdominal discomfort or diarrhea, is doing [id number] exercises in bed. Review of Systems All other system reviewed and negative. Physical Exam Vital Signs: Vital Signs: Last Vital Signs Temp 97.4 F 04/22/23 08:00 Pulse 84 04/22/23 08:00 Resp 20 04/22/23 08:00 BP 97/48 L 04/22/23 08:00 Pulse Ox 100 04/22/23 08:00 O2 Del Method Room Air 04/22/23 08:00 FiO2 100 04/20/23 07:15 BMI result Body Mass Index 19.0 Const: Other: Constitutional : Awake , alert , no acute distress, cachetic. Neck : Normal inspection, Supple, right IJ in place Cardiovascular : RRR, no JVP, no lower extremity edema Respiratory : good bilateral air entry, no crackles, wheezes or rhonchi Gastrointestinal: soft, Normal bowel sounds, Non tender Skin : Warm, Dry Neurological : Alert & oriented x3, No focal deficit Back stage II coccyx pressure ulcer Psych appropriate affect Objective Data Active Medications Acetaminophen (Acetaminophen 325 Mg Tablet) 650 mg PO Q6H PRN PRN Reason: Pain, Mild (Pain Scale 1-3) Last Admin: 04/21/23 21:46 Dose: 650 mg Documented By: MATILDE Ascorbic Acid (Ascorbic Acid 500 Mg Tablet) 500 mg PO DAILY [facility] Last Admin: 04/22/23 09:20 Dose: 500 mg Documented By: BOBBY Bisacodyl (Bisacodyl 10 Mg Supp.Rect) 10 mg [place] DAILY PRN PRN Reason: Constipation Dicyclomine HCl (Dicyclomine Hcl 10 Mg Capsule) 10 mg PO DAILY [facility] Last Admin: 04/22/23 09:20 Dose: 10 mg Documented By: BOBBY Fludrocortisone Acetate (Fludrocortisone Acetate 0.1 Mg Tablet) 0.1 mg PO DAILY [facility] Last Admin: 04/22/23 09:20 Dose: 0.1 mg Documented By: BOBBY Nutrition (Parenteral) (Parenteral Nutrition) 1,680 mls @ 70 mls/hr IV .Q24H [facility]; Protocol Stop: 04/22/23 20:59 Last Admin: 04/21/23 21:27 Dose: 70 mls/hr Documented By: MATILDE Nutrition (Parenteral) (Parenteral Nutrition) 1,680 mls @ 70 mls/hr IV .Q24H [facility]; Protocol Stop: 04/23/23 20:59 Levetiracetam (Levetiracetam 250 Mg Tablet) 250 mg PO BID [facility] Last Admin: 04/22/23 09:19 Dose: 250 mg Documented By: BOBBY Lurasidone HCl (Lurasidone Hcl 40 Mg Tablet) 120 mg PO DAILY [facility] Last Admin: 04/22/23 09:20 Dose: 120 mg Documented By: BOBBY Magnesium Oxide (Magnesium Oxide 400 Mg Tablet) 400 mg PO DAILY [facility] Last Admin: 04/22/23 09:20 Dose: 400 mg Documented By: BOBBY Midodrine (Midodrine Hcl 10 Mg Tablet) 10 mg PO TID [facility] Last Admin: 04/22/23 09:20 Dose: 10 mg Documented By: BOBBY Multivitamins/Vitamin C (Multivitamin Tablet) 1 tab PO DAILY [facility] Last Admin: 04/22/23 09:20 Dose: 1 tab Documented By: BOBBY Nortriptyline HCl (Nortriptyline Hcl 25 Mg Capsule) 25 mg PO BID [facility] Last Admin: 04/22/23 09:19 Dose: 25 mg Documented By: BOBBY Ondansetron HCl (Ondansetron Hcl 4 Mg/2 Ml Vial) 4 mg IVPUSH Q8H PRN PRN Reason: Nausea and Vomiting Last Admin: 04/22/23 11:54 Dose: 4 mg Documented By: GERARD Pharmacy Consult (Consult Rx Parenteral Nutrition Ordering) 1 each MISCELLANE DAILY PRN PRN Reason: Consult order Polyethylene Glycol (Polyethylene Glycol 3350 17 Gm Powd.Pack) 17 gm PO DAILY [facility] Last Admin: 04/22/23 09:51 Dose: Not Given Documented By: BOBBY Non-Admin Reason: Patient Refused Quetiapine Fumarate (Quetiapine Fumarate 25 Mg Tablet) 25 mg PO BEDTIME [facility] Last Admin: 04/21/23 21:28 Dose: 25 mg Documented By: MATILDE Sodium Biphosphate/Sodium Phosphate (Sodium Phosphate,[place]-Dibasic 133 Ml Enema) 197 ml [place] DAILY PRN PRN Reason: Constipation Sodium Chloride (0.9 % Sodium Chloride Flush 3 Ml Syringe) 3 ml IVFLUSH QSHIFT ON [facility] Last Admin: 04/22/23 09:08 Dose: Not Given Documented By: BOBBY Non-Admin Reason: IV Running Sodium Chloride (0.9 % Sodium Chloride Flush 10 Ml Syringe) 5 ml IVFLUSH TID [facility] Last Admin: 04/22/23 09:20 Dose: Not Given Documented By: BOBBY Non-Admin Reason: IV Running Spironolactone (Spironolactone 25 Mg Tablet) 25 mg PO DAILY [facility]; Protocol Last Admin: 04/13/23 09:00 Dose: 25 mg Documented By: MENDOZA Topiramate (Topiramate 25 Mg Tablet) 50 mg PO BEDTIME [facility] Last Admin: 04/21/23 21:27 Dose: 50 mg Documented By: MATILDE Valacyclovir HCl (Valacyclovir Hcl 1,000 Mg Tablet) 1,000 mg PO DAILY [facility] Last Admin: 04/22/23 09:20 Dose: 1,000 mg Documented By: BOBBY Vitamin D (Cholecalciferol (Vitamin D3) 25 Mcg Tablet) 25 mcg PO DAILY [facility] Last Admin: 04/22/23 09:20 Dose: 25 mcg Documented By: BOBBY Labs 04/19/23 06:26 04/22/23 05:24 Labs: Laboratory Results - last 24 hr 04/22/23 05:24 Hold Purple Top SEE NOTE Anion Gap 9 L Estim Creat Clear Calc 112.7 Estimated GFR > 60 Random Glucose 98 Calcium 7.9 L Phosphorus 3.4 Magnesium 1.9 Albumin 2.0 L Triglycerides 244 H Assessment and Plan (1) Major depressive disorder, recurrent: Status: Acute (2) UTI (urinary tract infection): Status: Acute (3) Acute on chronic anemia: Status: Acute (4) Toxic metabolic encephalopathy: Status: Acute (5) Metabolic acidosis: Status: Acute Plan 56F PMH gatric bypass, SBOs, hld, depression, DM, migraines, trung, presented with ams and hypoxia. Sinus tachycardia Patient noted to have heart rate up to 140 remains asymptomatic, normal magnesium and potassium Heart rate improved to 118 now, Likely due to dehydration will DC Aldactone encourage by mouth fluids, question anxiety stable hematocrit, no hypoxia, will check TSH Continue close clinical follow-up. Acute on chronic anemia Hematocrit improved after 2 units of packed RBC No evidence of bleeding, -ve occult , was likely dilutional and due to malnutrition follow H&H Acute hyperkalemia s/p Lokelma potassium improved to 4.3, follow BMP Pancytopenia likely from malnutrition Hematology input appreciated, CT Abd showed no acute pathology LDH 236 mildly elevated and normal bilirubin. Continue Multivitamins, stable hematocrit after blood transfusion platelet remains low, no active bleeding noted, follow CBC acute toxic metabolic encephalopathy 2/2 UTI, polypharmacy Resolved,s/p IV Rocephin for 5 days, Ecoli in urine cultures moderate-severe protein calorie malnutrition due to excessive weight loss/malabsorption s/p gastric bypass Being followed by supervisor photostat tolerating 75% of diet, continue IV PPN via TLC Seen by bariatric surgery they signed off since no surgical etiology was found, CT abdomen and pelvis less likely obstruction, moving bowels ,no abdominal pain Spoke with supervisor photostat if patient continue to take 100% of diet and take 3 cans of Ensure consistently then will DC the PPN, continue MiraLax acute hypoxic respiratory failure unclear etiology, resolved on room air, cxr unremarkable chronic non anion gap metabolic acidosis Bicarb improved to 25, was likely due to acetozolamide, discontinued on admission. history of DM,TRUNG, htn resolved w weight loss dvt prophylaxis on compression therapy Disposition return to snf being followed by Physical therapy, patient motivated to participate in physical therapy. reason for continued hospitalization for nutritional status on IV PPN and close electrolyte and CBC monitoring. Quality Stroke Does the patient have a stroke diagnosis?: No VTE Prior VTE?: No VTE Risk Level:: Medical - moderate - high VTE Device Contraindication: Treatment Not Indicated VTE Drug Contraindication: N/A - Med Ordered
[2023-04-22] MEDS: Acetaminophen 325 MG TABLET 650 MG PO ×2 (16:12→21:05)
--- NOTE | 2023-04-22 20:45 | PC.NURSE ---
Assumed care of pt at 19:15. Covering Dr. Tong notified of soft BP 100/56 manual. Pt asymptomatic. Discussed low BP noted earlier today per review of vitals trend. Written MD order okay to give scheduled meds as ordered. Will continue to monitor for duration of senior grant writer's scheduled care.
[2023-04-22] MEDS: Parenteral Nutrition 1,680 ML 70 ML IV (21:05)
[2023-04-22] MEDS: Topiramate 25 MG TABLET 50 MG PO (21:06)
[2023-04-22] MEDS: QUEtiapine Fumarate 25 MG TABLET PO (21:06)
[2023-04-22] MEDS: 0.9 % Sodium Chloride Flush 3 ML SYRINGE IVFLUSH (21:06)
[2023-04-23 03:28] VITALS: BP 92/54; PULSE 105; RESP 16; TEMP 36.3; O2SAT 99
[2023-04-23 07:34] LABS: Hemoglobin 9.2 g/dl (12.0-16.0); Mean Corpuscular HGB Conc 32.9 g/dl (31.0-35.0); Mean Corpuscular Volume 91.2 fL (80.0-98.0); Mean Platelet Volume 11.5 fL (9.4-12.3); Platelet Count 102 X10*3/uL (160-400); Red Blood Count 3.07 X10*6/uL (4.20-5.50); Red Cell Distribution Width 16.5 % (11.0-16.0); White Blood Count 4.8 X10*3/uL (4.8-10.8)
[2023-04-23 07:51] LABS: Albumin Level 2.2 g/dL (3.5-5.0); Anion Gap 7 (12-20); Blood Urea Nitrogen 24 mg/dL (9-16); Carbon Dioxide 26 mmol/L (22-29); Chloride 109 mmol/L (96-108); Creatinine Clr Calc Pharmacy 96.6; Estimated Glomerular Filt Rate > 60; Glucose Random 89 mg/dL (60-115); Phosphorus 3.4 mg/dL (2.7-4.5); Potassium 3.9 mmol/L (3.3-5.1); Sodium 138 mmol/L (135-145); Triglycerides 229 mg/dL (<150)
[2023-04-23 08:00] VITALS: BP 95/56; PULSE 105; RESP 20; TEMP 36.9; O2SAT 100
[2023-04-23 08:05] LABS: Thyroid Stimulating Hormone 1.99 uIU/mL (0.32-4.0)
[2023-04-23] MEDS: levETIRAcetam 250 MG TABLET PO ×2 (08:32→20:43)
[2023-04-23] MEDS: Dicyclomine HCl 10 MG CAPSULE PO (08:32)
[2023-04-23] MEDS: Lurasidone HCl 40 MG TABLET 120 MG PO (08:32)
[2023-04-23] MEDS: Multivitamin TABLET 1 TAB PO (08:33)
[2023-04-23] MEDS: valACYclovir HCL 1,000 MG TABLET 1000 MG PO (08:33)
[2023-04-23] MEDS: Fludrocortisone Acetate 0.1 MG TABLET PO (08:33)
[2023-04-23] MEDS: Magnesium Oxide 400 MG TABLET PO (08:33)
[2023-04-23] MEDS: Nortriptyline HCl 25 MG CAPSULE PO ×2 (08:33→20:43)
[2023-04-23] MEDS: Midodrine HCl 10 MG TABLET PO ×3 (08:33→20:43)
[2023-04-23] MEDS: Lactated Ringers 1,000 ML 100 ML IVCONT (08:33)
[2023-04-23] MEDS: Cholecalciferol (Vitamin D3) 25 MCG TABLET PO (08:33)
[2023-04-23] MEDS: Ascorbic Acid 500 MG TABLET PO (08:33)
[2023-04-23] MEDS: 0.9 % Sodium Chloride Flush 3 ML SYRINGE IVFLUSH ×2 (08:34→20:44)
[2023-04-23 10:24] VITALS: BP 95/56; PULSE 105; O2SAT 100
--- NOTE | 2023-04-23 10:47 | HO.PM.IMPN ---
Subjective Subjective Date of Service: 04/23/23 Interval History: Complaining of headache noted to have soft blood pressures and tachycardia denies chest pain, no palpitation tolerating diet finished 100% breakfast had to cans of Ensure yesterday, unable to drink fluids since feel full, denies fever chills no other acute issues. Review of Systems All other system reviewed and negative. Physical Exam Vital Signs: Vital Signs: Last Vital Signs Temp 98.5 F 04/23/23 08:00 Pulse 105 H 04/23/23 10:24 Resp 20 04/23/23 08:00 BP 95/56 L 04/23/23 10:24 Pulse Ox 100 04/23/23 10:24 O2 Del Method Room Air 04/23/23 08:00 FiO2 100 04/20/23 07:15 BMI result Body Mass Index 19.0 Const: Other: Constitutional : Awake , alert , no acute distress, cachetic. Neck : Normal inspection, Supple, right IJ in place Cardiovascular : RRR, no JVP, no lower extremity edema Respiratory : good bilateral air entry, no crackles, wheezes or rhonchi Gastrointestinal: soft, Normal bowel sounds, Non tender Skin : Warm, Dry Neurological : Alert & oriented x3, No focal deficit Back stage II coccyx pressure ulcer Psych appropriate affect Objective Data Active Medications Acetaminophen (Acetaminophen 325 Mg Tablet) 650 mg PO Q6H PRN PRN Reason: Pain, Mild (Pain Scale 1-3) Last Admin: 04/22/23 21:05 Dose: 650 mg Documented By: AURE Ascorbic Acid (Ascorbic Acid 500 Mg Tablet) 500 mg PO DAILY [facility] Last Admin: 04/23/23 08:33 Dose: 500 mg Documented By: BOBBY Bisacodyl (Bisacodyl 10 Mg Supp.Rect) 10 mg DE DAILY PRN PRN Reason: Constipation Dicyclomine HCl (Dicyclomine Hcl 10 Mg Capsule) 10 mg PO DAILY [facility] Last Admin: 04/23/23 08:32 Dose: 10 mg Documented By: BOBBY Fludrocortisone Acetate (Fludrocortisone Acetate 0.1 Mg Tablet) 0.1 mg PO DAILY [facility] Last Admin: 04/23/23 08:33 Dose: 0.1 mg Documented By: BOBBY Nutrition (Parenteral) (Parenteral Nutrition) 1,680 mls @ 70 mls/hr IV .Q24H [facility]; Protocol Stop: 04/23/23 20:59 Last Admin: 04/22/23 21:05 Dose: 70 mls/hr Documented By: AURE Lactated Ringer's (Lr) 1,000 mls @ 100 mls/hr IVCONT .Q10H [facility] Stop: 04/23/23 17:29 Last Admin: 04/23/23 08:33 Dose: 100 mls/hr Documented By: BOBBY Levetiracetam (Levetiracetam 250 Mg Tablet) 250 mg PO BID [facility] Last Admin: 04/23/23 08:32 Dose: 250 mg Documented By: BOBBY Lurasidone HCl (Lurasidone Hcl 40 Mg Tablet) 120 mg PO DAILY [facility] Last Admin: 04/23/23 08:32 Dose: 120 mg Documented By: BOBBY Magnesium Oxide (Magnesium Oxide 400 Mg Tablet) 400 mg PO DAILY [facility] Last Admin: 04/23/23 08:33 Dose: 400 mg Documented By: BOBBY Midodrine (Midodrine Hcl 10 Mg Tablet) 10 mg PO TID [facility] Last Admin: 04/23/23 08:33 Dose: 10 mg Documented By: BOBBY Multivitamins/Vitamin C (Multivitamin Tablet) 1 tab PO DAILY [facility] Last Admin: 04/23/23 08:33 Dose: 1 tab Documented By: BOBBY Nortriptyline HCl (Nortriptyline Hcl 25 Mg Capsule) 25 mg PO BID [facility] Last Admin: 04/23/23 08:33 Dose: 25 mg Documented By: BOBBY Ondansetron HCl (Ondansetron Hcl 4 Mg/2 Ml Vial) 4 mg IVPUSH Q8H PRN PRN Reason: Nausea and Vomiting Last Admin: 04/22/23 11:54 Dose: 4 mg Documented By: GERARD Pharmacy Consult (Consult Rx Parenteral Nutrition Ordering) 1 each MISCELLANE DAILY PRN PRN Reason: Consult order Polyethylene Glycol (Polyethylene Glycol 3350 17 Gm Powd.Pack) 17 gm PO DAILY [facility] Last Admin: 04/23/23 08:54 Dose: Not Given Documented By: BOBBY Non-Admin Reason: Patient Refused Quetiapine Fumarate (Quetiapine Fumarate 25 Mg Tablet) 25 mg PO BEDTIME [facility] Last Admin: 04/22/23 21:06 Dose: 25 mg Documented By: AURE Sodium Biphosphate/Sodium Phosphate (Sodium Phosphate,Day-Dibasic 133 Ml Enema) 197 ml DE DAILY PRN PRN Reason: Constipation Sodium Chloride (0.9 % Sodium Chloride Flush 3 Ml Syringe) 3 ml IVFLUSH QSHIFT [facility] Last Admin: 04/23/23 08:34 Dose: 3 ml Documented By: BOBBY Sodium Chloride (0.9 % Sodium Chloride Flush 10 Ml Syringe) 5 ml IVFLUSH TID [facility] Last Admin: 04/23/23 08:34 Dose: Not Given Documented By: BOBBY Non-Admin Reason: Duplicate Order Topiramate (Topiramate 25 Mg Tablet) 50 mg PO BEDTIME [facility] Last Admin: 04/22/23 21:06 Dose: 50 mg Documented By: AURE Valacyclovir HCl (Valacyclovir Hcl 1,000 Mg Tablet) 1,000 mg PO DAILY [facility] Last Admin: 04/23/23 08:33 Dose: 1,000 mg Documented By: BOBBY Vitamin D (Cholecalciferol (Vitamin D3) 25 Mcg Tablet) 25 mcg PO DAILY [facility] Last Admin: 04/23/23 08:33 Dose: 25 mcg Documented By: BOBBY Labs 04/23/23 07:08 04/23/23 07:08 Labs: Laboratory Results - last 24 hr 04/23/23 07:08 MCV 91.2 MCH 30.0 MCHC 32.9 RDW 16.5 H Plt Count 102 L D MPV 11.5 Absolute Nucleated RBC 0.000 Nucleated RBC % (auto) 0.0 Anion Gap 7 L Estim Creat Clear Calc 96.6 Estimated GFR > 60 Random Glucose 89 Calcium 8.0 L Phosphorus 3.4 Magnesium 2.0 Albumin 2.2 L Triglycerides 229 H TSH 1.99 Assessment and Plan (1) Major depressive disorder, recurrent: Status: Acute (2) UTI (urinary tract infection): Status: Acute (3) Acute on chronic anemia: Status: Acute (4) Toxic metabolic encephalopathy: Status: Acute (5) Metabolic acidosis: Status: Acute Plan 56F PMH gatric bypass, SBOs, hld, depression, DM, migraines, trung, presented with ams and hypoxia. Sinus tachycardia Asymptomatic, heart rate 105/110 , normal magnesium and potassium Likely due to dehydration encourage by mouth fluids, give IV fluid 1 L, no anxiety stable hematocrit, no hypoxia, TSH 1.99 Continue close clinical follow-up. Acute on chronic anemia Hematocrit improved after 2 units of packed RBC , repeat hematocrit 28 today No evidence of bleeding, -ve occult , was likely dilutional and due to malnutrition Acute hyperkalemia s/p Lokelma potassium improved Pancytopenia likely from malnutrition Hematology input appreciated, CT Abd showed no acute pathology LDH 236 mildly elevated and normal bilirubin. Continue Multivitamins, stable hematocrit after blood transfusion , platelets improved, no active bleeding noted, follow CBC acute toxic metabolic encephalopathy 2/2 UTI, polypharmacy Resolved,s/p IV Rocephin for 5 days, Ecoli in urine cultures moderate-severe protein calorie malnutrition due to excessive weight loss/malabsorption s/p gastric bypass Being followed by resource conservationist tolerating 75% to 100% of diet, continue IV PPN via TLC Seen by bariatric surgery they signed off since no surgical etiology was found, CT abdomen and pelvis less likely obstruction, moving bowels ,no abdominal pain Spoke with resource conservationist if patient continue to take 100% of diet and take 3 cans of Ensure consistently then will DC the PPN, continue MiraLax Continue PPN today acute hypoxic respiratory failure unclear etiology, resolved on room air, cxr unremarkable chronic non anion gap metabolic acidosis Bicarb improved to 25, was likely due to acetozolamide, discontinued on admission. history of DM,TRUNG, htn resolved w weight loss dvt prophylaxis on compression therapy Disposition return to snf being followed by Physical therapy, patient motivated to participate in physical therapy. reason for continued hospitalization for nutritional status on IV PPN and close electrolyte and CBC monitoring. Quality Stroke Does the patient have a stroke diagnosis?: No VTE Prior VTE?: No VTE Risk Level:: Medical - moderate - high VTE Device Contraindication: Treatment Not Indicated VTE Drug Contraindication: N/A - Med Ordered
[2023-04-23] MEDS: Acetaminophen 325 MG TABLET 650 MG PO ×2 (10:50→18:05)
--- NOTE | 2023-04-23 11:23 | MHC.CLN ---
F/U PO INTAKE CONTINUES AT 75% PT C/O FEELING FULL WITH MEALS CONTINUES WITH BARIATRIC PHASE 6 DIET, GROUND CONSISTENCY AND PPN CONTINUES RECEIVES ENSURE MAX HIGH PROTEIN ON MEAL TRAY TID PROVIDES 450 KCALS, 90G PROTEIN IF CONSUMED 100% PT UNDERSTANDS SHE NEEDS TO DRINK HER PROTEIN SHAKES 3 TIMES PER DAY AND CONTINUE EATING HER MEALS PT STATES SHE IS MOTIVATED TO DRINK HER SHAKES BUT UPON INTERVIEW SHAKES ARE FULL AT BEDSIDE TABLE PT REQUESTING THE SHAKES BE CHILLED-GAVE TO [facility]URSE FOR LABELING AND SHAKES WILL BE STORED ON UNIT KITCHENETTE FRIDGE DISCUSSED WITH PHARMACY RECOMMEND CONTINUE PPN AT MAX GOAL RATE: PPN AT 70ML/HR, WITH 56 G LIPIDS (1.19 G/KG), PROVIDES 1417 TOTAL KCALS (30 KCALS/KG), 168G DEXTROSE, 71G PROTEIN (1.5 G/KG) REPLETE LYTES NEEDED STAGE 2 COCCYX-PPN TO PROMOTE WOUND HEALING AT 1.5G/KG STRICT PO INTAKE; ENCOURAGE SUPPLEMENT 3 SHAKES PER DAY DISCUSSED WITH PT'S CM THAT UPON DISCHARGE PT REHAB FACILITY/SNF WILL NEED TO PROVIDE ENSURE MAX TID
--- NOTE | 2023-04-23 11:26 | MHC.CM.PN ---
CM was informed by middleware consultant that pt requires a specific supplement (Ensure Max) 3 times a day. CM messaged [facility] of this for when she returns.
[2023-04-23 12:00] VITALS: BP 89/51; PULSE 102; RESP 15; TEMP 36.2; O2SAT 99
[2023-04-23 15:32] VITALS: BP 92/51; PULSE 92; RESP 18; TEMP 35.9; O2SAT 100
[2023-04-23 19:14] VITALS: BP 94/45; PULSE 104; RESP 14; TEMP 36.5; O2SAT 98
[2023-04-23] MEDS: Topiramate 25 MG TABLET 50 MG PO (20:43)
[2023-04-23] MEDS: QUEtiapine Fumarate 25 MG TABLET PO (20:44)
[2023-04-24] VITALS (7 sets, daily range): BP systolic 82–102; BP diastolic 46–64; PULSE 92–106; RESP 16–20; TEMP 36.1–36.6; O2SAT 96–100
[2023-04-24] MEDS: Parenteral Nutrition 1,680 ML 70 ML IV (00:26)
[2023-04-24] MEDS: Acetaminophen 325 MG TABLET 650 MG PO (03:44)
[2023-04-24] MEDS: Albumin Human 25 % 100 ML IV (04:06)
--- NOTE | 2023-04-24 06:22 | PC.NURSE ---
Approximately at 03:30, pt's BP manually was 80/42. Pt complained of an 9/10 headache pain. Pt A&Ox3 during assessment. Nursing air conditioning installer supervisor and MD Tong made aware of the pt's low BP. One time dose of Albumin was ordered per AUG. Recheck BP after the given dose of Albumin, was 90/58 manually. MD Tong notified of the BP. Will continue to monitor pt's BP.
[2023-04-24] MEDS: Ketorolac Tromethamine 30 MG/ML VIAL IVPUSH (06:34)
[2023-04-24] MEDS: 0.9 % Sodium Chloride Flush 3 ML SYRINGE IVFLUSH (10:21)
[2023-04-24] MEDS: Fludrocortisone Acetate 0.1 MG TABLET PO (10:22)
[2023-04-24] MEDS: Dicyclomine HCl 10 MG CAPSULE PO (10:22)
[2023-04-24] MEDS: Cholecalciferol (Vitamin D3) 25 MCG TABLET PO (10:22)
[2023-04-24] MEDS: Ascorbic Acid 500 MG TABLET PO (10:22)
[2023-04-24] MEDS: Multivitamin TABLET 1 TAB PO (10:23)
[2023-04-24] MEDS: valACYclovir HCL 1,000 MG TABLET 1000 MG PO (10:23)
[2023-04-24] MEDS: Lurasidone HCl 40 MG TABLET 120 MG PO (10:23)
[2023-04-24] MEDS: levETIRAcetam 250 MG TABLET PO (10:23)
[2023-04-24] MEDS: Midodrine HCl 10 MG TABLET PO (10:23)
[2023-04-24] MEDS: Magnesium Oxide 400 MG TABLET PO (10:23)
[2023-04-24] MEDS: Nortriptyline HCl 25 MG CAPSULE PO (10:23)
--- NOTE | 2023-04-24 10:49 | PC.NURSE ---
08:00 BP 84/56 MAP 65, 09:30 BP 102/64 manual. Discussed pt with RN and MD at bedside. Hypotension asymptomatic. Obtained otoscope for MD, MD assessed for right ear infection, right ear pain and pressure. Plan to start prophylactic abx. Bed bath completed with PRESSER MACHINE.
--- NOTE | 2023-04-24 11:11 | PM.DS ---
DS: Providers Provider Date of Service: 04/24/23 Date of admission: 04/13/23 01:31 Primary care physician: Carri Reynoso MD Consults: 04/15/23 09:36 Consult to Bariatric Surgery Routine Consulting Provider: Maite Khan Reason for consultation: Malnutrition , decrease PO intake w hx of gastric bypass 04/16/23 07:31 Consult to Hematology / Oncology Routine Consulting Provider: Elvia Collins Reason for consultation: Pancytopenia, worsening anemia 04/17/23 07:54 Consult to Psychiatry Routine Consulting Provider: Psych Covering Reason for consultation: DEcrease PO intake, weight loss, depression 04/22/23 19:04 Consult to Wound Care Routine Reason for consultation: stg 2 to coccyx Has provider been notified: Yes DS: Diagnosis Discharge Diagnosis (1) Major depressive disorder, recurrent: Status: Acute (2) UTI (urinary tract infection): Status: Acute (3) Acute on chronic anemia: Status: Acute (4) Toxic metabolic encephalopathy: Status: Acute (5) Metabolic acidosis: Status: Acute DS: Summary Hospital Course Hospital Course: History of presenting illness: Date of Service: 04/13/23 Chief Complaint: AMS, Hypoxia a 56-year-old female with past medical history of gastrectomy, distal absorption, history of paroxysmal as surgery, small-bowel obstruction, hyperlipidemia anxiety depression, diabetes and migraine headaches, TRUNG, among others who presents to the hospital with Altered mentation and hypoxia. The patient was found altered and difficult to arouse at STR with reported hypoxia to low 80s. placed her on NRB but did not reach 90s so they had to start CPAP and bring her to the hospital. her AMS improved as O2 level was back to 100% on CPAP. The patient was unable to provide much of history as she was still lethargic at time of presentation but she couldnt remember how did she end up in the hospital. In ED, CXR, CTA chest were both negative for any acute findings. Patient looks cachetic and report losing weight over the last few months with decrease PO intake. Blood work showed low Albumin and evidence of metabolic acidosis with respiratory alkalosis. Admitted for further evaluation and treatment. Hospital course: 56F PMH gatric bypass, SBOs, hld, depression, DM, migraines, trung, presented with ams and hypoxia and admitted to [facility] with diagnosis of acute toxic metabolic encephalopathy secondary to UTI and polypharmacy patient treated with 5 days of IV Rocephin for E coli UTI confusion resolved patient seemed to be at baseline, patient was also noted to have and marijuana she was also noted to have acute on chronic in my received 2 units of packed RBC hematocrit improved and remained stable no active bleeding was noted as stool occult this was negative likely anemia related to iron deficient and dilutional due to IV fluids, there was no evidence of hemolysis, CT abdomen and pelvis showed no acute pathology , recommend high-protein diet. Sinus tachycardia patient noted to have intermittent sinus tachycardia she remained asymptomatic had normal TSH, stable hematocrit, normal magnesium and potassium likely due to dehydration treated with IV fluids, patient runs soft blood pressures. Acute hyperkalemia s/p Lokelma potassium improved moderate-severe protein calorie malnutrition due to excessive weight loss/malabsorption s/p gastric bypass, was followed closely by technical maintenance specialist currently tolerating 75-100% of diet treated with IV PPN was evaluated for bariatric surgery, no surgical etiology was found, CT abdomen and pelvis showed no acute abnormalities. since patient by mouth intake has improved ,PPN discontinued, patient is encouraged to use Ensure t.i.d., follow up with technical maintenance specialist acute hypoxic respiratory failure of unclear etiology oxygenation improved, currently on room air chest x-ray showed no acute abnormality. chronic non anion gap metabolic acidosis most likely due to acetazolamide, that has been discontinued bicarb improved and remained stable history of DM,TRUNG, htn resolved with weight loss. Right otitis media being discharged on amoxicillin 500 mg t.i.d. for total 5 days Time Attestation Discharge coordination time: Greater than 30 minutes Quality: Safe Use of Opioids Does Pt have an Active Cancer Diagnosis on the Problem List?: No Quality: Stroke Does the patient have a stroke diagnosis?: No Physical Exam Vital Signs: Vital Signs: Last Vital Signs Temp 97.0 F 04/24/23 08:00 Pulse 92 04/24/23 09:30 Resp 18 04/24/23 08:00 BP 102/64 04/24/23 09:30 Pulse Ox 99 04/24/23 08:00 O2 Del Method Room Air 04/24/23 08:00 FiO2 100 04/20/23 07:15 BMI result Body Mass Index 19.0 Const: Other: Constitutional : Awake , alert , no acute distress, cachetic. Neck : Normal inspection, Supple Cardiovascular : RRR, no JVP, no lower extremity edema Respiratory : good bilateral air entry, no crackles, wheezes or rhonchi Gastrointestinal: soft, Normal bowel sounds, Non tender Skin : Warm, Dry Neurological : Alert & oriented x3, No focal deficit Right ear brown wax unable to see tympanic membrane Back stage II coccyx pressure ulcer Psych appropriate affect Discharge Plan Discharge Anticipated Discharge Date/Time: 04/24/23 12:01 Patient Disposition: er [facility] Discharge Diagnosis: Acute toxic metabolic encephalopathy Acute UTI Moderate to severe protein calorie malnutrition Chronic nonanion metabolic acidosis Referrals: [facility] [Outside] - 1 Day (RESUMPTION OF LTC) Carri Reynoso MD [Primary Care Provider] - 1 Week Discharge Medications: New quetiapine 25 mg Tablet 25 mg PO BEDTIME Qty: 30 0RF fludrocortisone 0.1 mg Tablet 0.1 mg PO DAILY Qty: 30 0RF amoxicillin 400 mg/5 mL Suspension For Reconstitution 500 mg PO TID Qty: 15 0RF Continued Latuda 120 mg tablet 120 mg PO DAILY Rx Instructions: must administer with food (at least 350 calories) topiramate 100 mg tablet 100 mg PO BEDTIME Qty: 28 4RF midodrine 5 mg tablet 10 mg PO TID nortriptyline 25 mg Capsule 25 mg PO BID valacyclovir 1 gram tablet 1,000 mg PO DAILY cholecalciferol (vitamin D3) 25 mcg (1,000 unit) tablet 25 mcg PO DAILY riboflavin (vitamin B2) 100 mg tablet 200 mg PO BEDTIME magnesium oxide 400 mg (241.3 mg magnesium) tablet 400 mg PO DAILY (DME) blood pressure monitor Kit See Rx Instructions .Route Qty: 1 0RF Rx Instructions: Check BP bid and prn lightheadedness ascorbic acid (vitamin C) [Vitamin C] 500 mg tablet 500 mg PO DAILY polyethylene glycol 3350 17 gram/dose powder 17 g PO DAILY acetaminophen 325 mg capsule 650 mg PO Q6H PRN (Reason: Pain) bisacodyl 10 mg suppository 10 mg HI DAILY PRN (Reason: Constipation) dicyclomine 10 mg capsule 10 mg PO DAILY Fleet Enema 19-7 gram/118 mL enema 197 ml HI DAILY PRN (Reason: Constipation) levetiracetam 500 mg tablet 500 mg PO BID pantoprazole [address] for susp in packet 40 mg PO DAILY Discontinued potassium chloride 10 mEq tablet extended release 10 meq PO DAILY ondansetron HCl [Zofran] 4 mg Tablet 4 mg PO Q8H spironolactone 25 mg Tablet 25 mg PO DAILY acetazolamide 250 mg tablet 250 mg PO TID Zyrtec 10 mg capsule 10 mg PO DAILY Linzess 290 mcg capsule 290 mcg PO DAILY hydroxyzine HCl 25 mg tablet 25 mg PO BEDTIME melatonin 5 mg tablet 5 mg PO BEDTIME clonazepam 0.5 mg tablet 0.25 mg PO DAILY lubiprostone 8 mcg capsule 8 mcg PO DAILY Discharge Orders: Discharge Order (Routine); Ordered 04/24/23 Ordered By: Walker Lucero Diet: Bariatric phase 6 diet Activity on Discharge: As tolerated Stand Alone Forms: Patient Portal Discharge page Care Plan Goals: Acute toxic metabolic encephalopathy resolved Moderate to severe protein calorie malnutrition Pancytopenia Health Concerns: Malnutrition, status post bariatric surgery, mood disorder Plan of Treatment: Outpatient follow-up with primary care physician Assessment: As above
--- NOTE | 2023-04-24 12:20 | MHC.CM.PN ---
Pt is medically cleared for D/C back to [facility] for LTC. Transport set up via BLS/[facility] at 1pm today.
== END 2023-04-24 13:10 | disposition skilled nursing facility (03) | DRG 254 ==
LOC: HO.ED 22:55 → HO.EDOVER 04-13 01:41 → HO.IMC 04-14 03:24
PROVIDERS: Emergency Medicine; Internal Medicine; Physician Assistant; Admitting Provider Student in an Organized Health Care Education/Training Program; Emergency Provider Emergency Medicine; PCP Internal Medicine; Visit Provider Hospitalist
PROC: 05HB33Z Insertion of Infusion Device into Right Basilic Vein, Percutaneous Approach (ICD-10-PCS; principal; 2023-04-15 15:30)
DX: K91.2 Postsurgical malabsorption, not elsewhere classified (principal); J96.01 Acute respiratory failure with hypoxia; G92.8 Other toxic encephalopathy; D61.818 Other pancytopenia; E43 Unspecified severe protein-calorie malnutrition; E87.4 Mixed disorder of acid-base balance; N39.0 Urinary tract infection, site not specified; L89.151 Pressure ulcer of sacral region, stage 1; E11.9 Type 2 diabetes mellitus without complications; B96.20 Unspecified Escherichia coli [E. coli] as the cause of diseases classified elsewhere; R00.0 Tachycardia, unspecified; E87.5 Hyperkalemia; I10 Essential (primary) hypertension; H66.91 Otitis media, unspecified, right ear; F33.9 Major depressive disorder, recurrent, unspecified; Z68.1 Body mass index [BMI] 19.9 or less, adult; G47.33 Obstructive sleep apnea (adult) (pediatric); Z20.822 Contact with and (suspected) exposure to COVID-19; Z98.84 Bariatric surgery status; Z87.891 Personal history of nicotine dependence
CPT/HCPCS: 36410; 36415; 71045; 71275; 74177; 80048; 80061; 80076; 80177; 80307; 81001; 82040; 82272; 82306; 82607; 82728; 82746; 82803; 82947; 83540; 83605; 83615; 83735; 83880; 84100; 84146; 84425; 84443; 84478; 84484; 84590; 84630; 85025; 85027; 85045; 85610; 85652; 86850; 86900; 86901; 86923; 87040; 87086; 87088; 87186; 87502; 87635; 92526; 92610; 93005; 97110; 97162; 97530; 99285; C9113; J0696; J1650; J1885; J2405; J7120; P9016; P9047; Q9967

== ENCOUNTER → 2023-04-13 01:31 | Outpatient (BNV) | payer MEDICAID, SELFPAY | PROVIDERS: Admitting Provider Student in an Organized Health Care Education/Training Program; Emergency Provider Emergency Medicine; PCP Internal Medicine; Visit Provider Student in an Organized Health Care Education/Training Program | DX: N39.0 Urinary tract infection, site not specified (principal); D64.9 Anemia, unspecified; G92.8 Other toxic encephalopathy; E87.20 Acidosis, unspecified | CPT/HCPCS: 99223; 99232; 99233; 99239; 99499 ==

== ENCOUNTER → 2023-04-13 01:31 | Outpatient (BNV) | payer OTHER, SELFPAY | PROVIDERS: Admitting Provider Student in an Organized Health Care Education/Training Program; Emergency Provider Emergency Medicine; PCP Internal Medicine; Visit Provider Psychiatry & Neurology Psychiatry | DX: F33.2 Major depressive disorder, recurrent severe without psychotic features (principal) | CPT/HCPCS: 99232 ==

== ENCOUNTER → 2023-04-13 01:31 | Outpatient (BNV) | payer MEDICAID, SELFPAY | PROVIDERS: Admitting Provider Student in an Organized Health Care Education/Training Program; Emergency Provider Emergency Medicine; PCP Internal Medicine; Visit Provider Internal Medicine | DX: D64.9 Anemia, unspecified (principal) | CPT/HCPCS: 99222 ==

== ENCOUNTER → 2023-04-13 01:31 | Outpatient (BNV) | payer MEDICAID, SELFPAY | PROVIDERS: Admitting Provider Student in an Organized Health Care Education/Training Program; Emergency Provider Emergency Medicine; PCP Internal Medicine; Visit Provider Physician Assistant | DX: E46 Unspecified protein-calorie malnutrition (principal); G92.8 Other toxic encephalopathy; N39.0 Urinary tract infection, site not specified; Z98.84 Bariatric surgery status | CPT/HCPCS: 99231; 99232 ==

== ENCOUNTER 2023-05-21 08:37 | Outpatient (REF) | payer MEDICAID, SELFPAY ==
[2023-05-21 10:12] LABS: Hematocrit 29.3 % (37.0-47.0); Mean Corpuscular HGB Conc 30.7 g/dl (31.0-35.0); Mean Corpuscular Hemoglobin 29.6 pg (27.0-33.0); Mean Corpuscular Volume 96.4 fL (80.0-98.0); Mean Platelet Volume 11.5 fL (9.4-12.3); Platelet Count 176 X10*3/uL (160-400); Red Blood Count 3.04 X10*6/uL (4.20-5.50); Red Cell Distribution Width 16.2 % (11.0-16.0); White Blood Count 9.4 X10*3/uL (4.8-10.8)
[2023-05-21 11:47] LABS: Alanine Aminotransferase 13 U/L (0-31); Albumin Level 2.5 g/dL (3.5-5.0); Alkaline Phosphatase 113 U/L (39-117); Aspartate Amino Transferase 15 U/L (5-31); Bilirubin Direct 0.1 mg/dL (0.0-0.5); Bilirubin Total 0.3 mg/dL (0.0-1.0); Iron 67 mcg/dL (30-160); Lipase 5 U/L (8-78); Percent Iron Saturation 55 % (15-50); Total Iron Binding Capacity 122 mcg/dL (228-428); Unsaturated Iron Binding 55 ug/dL
[2023-05-21 12:14] LABS: Ferritin 374 ng/mL (10-250); TSH reflex Free T4 1.13 uIU/mL (0.32-4.0)
[2023-05-21 12:18] LABS: Folate 10.6 ng/mL (> or = 4.0); Vitamin B12 485 pg/mL (200-900)
[2023-05-25 18:35] LABS: Vitamin D 25-OH, D2 6 ng/mL; Vitamin D 25-OH, D3 18 ng/mL; Vitamin D 25-OH, Total 24 ng/mL (30-100)
== END 2023-05-21 08:38 | disposition home or self-care (01) ==
LOC: HO.LAB 08:37
PROVIDERS: PCP Internal Medicine; Visit Provider Nurse Practitioner Family
DX: K21.9 Gastro-esophageal reflux disease without esophagitis (principal); R10.13 Epigastric pain; R11.0 Nausea; E46 Unspecified protein-calorie malnutrition; K91.2 Postsurgical malabsorption, not elsewhere classified; D64.9 Anemia, unspecified; R19.7 Diarrhea, unspecified; R74.8 Abnormal levels of other serum enzymes; K59.00 Constipation, unspecified; E55.9 Vitamin D deficiency, unspecified; Z98.84 Bariatric surgery status
CPT/HCPCS: 36415; 80076; 82306; 82607; 82728; 82746; 83540; 83690; 84443; 85027; 99212

== ENCOUNTER 2023-05-21 08:37 | Outpatient (AMB) | payer MEDICAID, SELFPAY ==
[2023-05-21 08:45] VITALS: BP 103/76; PULSE 130; BMI 21.2
--- NOTE | 2023-05-21 08:45 | MHC.OFFVIS ---
Intake Vital Signs 05/21/23 08:45 Height 5 ft 2 in Weight 115 lb 15.41 oz BMI 21.2 BP 103/76 Blood Pressure Location Lt brachial Position Sitting Pulse 130 H Pulse Source Pulse Oximeter Intake Visit Reasons: Abd pain, nausea Intake Note: Pt presents to the office today for abdominal pain and nausea. Pt states it started about 2 weeks ago. Pt states she is worried because she eats well but has been losing weight. Pt states her abdominal pain is on her left side and pt states when she drinks her Ensure she tends to get nauseous. Allergies baclofen Allergy (Intermediate, Verified 05/21/23 08:50) Swelling amoxicillin Allergy (Mild, Verified 05/21/23 08:50) yeast infection gabapentin Adverse Reaction (Mild, Verified 05/21/23 08:50) Swelling Meloxicam Allergy (Unknown, Uncoded 05/21/23 08:50) swelling HPI Abd pain, nausea HPI Details 58 years old female with past medical history of LSG 04/05/[address] العراقي, partial small-bowel obstructions in 2020 most likely related to hernia. Patient has been anemic and has been losing weight since. In the last 2 weeks patient reports that she has left lower quadrant pain. Reports that she is eating her usual meals and is unable to gain any weight. Patient is drinking protein shakes as well. Denies any nausea or vomiting. Denies any melena, hematochezia or ribbon like stools. Patient denies any dyspepsia, dysphagia or odynophagia. Denies any nausea or vomiting. Patient reports that she uses Fleet enemas and also other [id number] laxatives to help her move her bowels. [facility] Medical History (Updated 06/09/23 @ 20:06 by Virginia Sharpe, [facility]) Excess skin of upper extremity Body mass index (BMI) of 32.0-32.9 in adult Obesity (BMI 30-39.9) Major depressive disorder, recurrent Anemia Internal hernia Lipoma History of lipoma Sleep apnea with use of continuous positive airway pressure (CPAP) Hypercholesterolemia Type 2 diabetes mellitus Lymphedema Migraines Anxiety Back pain Arthritis Carpal tunnel syndrome H/O nephrolithotomy with removal of calculi Surgical History H/O hernia repair History of gastric surgery Hx of colonoscopy Hx of lumpectomy H/O cervical discectomy History of Zane-en-Y gastric bypass S/P carpal tunnel release Hx of section S/P knee replacement History of back surgery Family History Father No problems noted. Mother Arthritis Brother No problems noted. Brother No problems noted. Sister No problems noted. Sister No problems noted. Sister No problems noted. Sister No problems noted. Son No problems noted. Daughter No problems noted. Social History Household Members: Other Housing: Long Term Alcohol intake: former Patient Tobacco Use Status: Former Tobacco user Quit Date: 2017 service: No Current occupational status: disabled Review of Systems Const Denies weight gain and Denies weight loss ENT Reports no additional complaints, Denies dysphagia and Denies odynophagia Card Reports no additional complaints Resp Reports no additional complaints GI Reports abdominal pain (LLQ), Denies belching, Denies melena, Denies bloating, Denies change in bowel habits, Reports constipation, Denies dysphagia, Denies excessive flatus, Reports dyspepsia, Denies heartburn, Denies diarrhea, Denies loose stools, Denies nausea, Denies odynophagia and Denies vomiting Reports no additional complaints Musc Reports no additional complaints Neuro Reports no additional complaints Psych Reports no additional complaints Endo Reports no additional complaints Physical Exam Vital Signs: Last Vital Signs Pulse 130 H 05/21/23 08:45 BP 103/76 05/21/23 08:45 BMI result Body Mass Index 21.2 Const General: healthy appearing, no acute distress and well developed Nutritional Appearance: well nourished Orientation/consciousness: patient oriented x3 HEENT Head: Yes normal to inspection, Yes normocephalic and Yes atraumatic Face and sinus: Yes normal facial exam Mouth: Normal oral and palatal mucosa present Throat: Yes posterior oropharynx normal, Yes tonsils normal and Yes uvula midline Eyes General: appearance normal, both eyes and all related structures Neck Neck: Yes normal visual inspection, Yes full ROM and Yes trachea midline Thyroid: Thyroid normal Resp Effort & Inspection: normal respiratory effort, able to speak in complete sentences, no tracheal deviation and symmetric chest movement Auscultation: clear to auscultation bilaterally Cardio Rate: regular rate GI Inspection: Yes normal to inspection and No distended Palpation (GI): Soft to palpation, not firm, nontender and No hepatosplenomegaly present Auscultation: normal bowel sounds General: Yes no CVA tenderness Back/Spine/Pelvis Back: no CVA tenderness Skin General skin exam: elasticity normal, turgor normal and dry skin Neuro General: patient oriented x3 Psych Appearance: grossly normal Mental Status: mental status grossly normal Assessment & Plan Assessment & Plan (1) Malnutrition: Code(s): E46 - Unspecified protein-calorie malnutrition Qualifiers: Malnutrition type: unspecified type Qualified Code(s): E46 - Unspecified protein-calorie malnutrition (2) Abdominal pain: Code(s): R10.9 - Unspecified abdominal pain Qualifiers: Abdominal location: epigastric Qualified Code(s): R10.13 - Epigastric pain (3) Intestinal malabsorption following gastrectomy: Code(s): K91.2 - Postsurgical malabsorption, not elsewhere classified; Z90.3 - Acquired absence of stomach [part of] Plan Will repeat patient's CBC, thyroid study, iron profile, ferritin. Patient will return in 5 weeks, will send her for colonoscopy and upper endoscopy. Patient had Hemoccult negative stools back in April. Patient might need to go for iron transfusion due to inability to absorb were oral iron after her bariatric surgery. Patient will call our office if she will have worsening GI symptoms. Patient is agreeable to this plan and verbalizes understanding of instructions. She was given the opportunity to ask questions and all questions answered. Orders: Orders Complete Blood Count no Diff 05/21/23 K21.9 - Gastro-esophageal reflux disease without esophagitis IRON PROFILE 05/21/23 D64.9 - Anemia, unspecified Vitamin B12 and Folate 05/21/23 R19.7 - Diarrhea, unspecified Lipase 05/21/23 R10.9 - Unspecified abdominal pain Liver Panel 05/21/23 R10.9 - Unspecified abdominal pain Ferritin 05/21/23 R74.8 - Abnormal levels of other serum enzymes TSH reflex Free T4 05/21/23 K59.00 - Constipation, unspecified Vitamin D 25-OH (D2 and D3) 05/21/23 E55.9 - Vitamin D deficiency, unspecified Coding Level of Care Code New Pt Level 4 (35450) Diagnoses Malnutrition, unspecified type E46 Malnutrition type: unspecified type Abdominal pain R10.13 Abdominal location: epigastric Intestinal malabsorption following gastrectomy K91.2; Z90.3 Time Spent (min) 45 Comment 30 minutes spent with patient and additional 15 minutes spent reviewing her records
== END 2023-05-21 09:32 | disposition home or self-care (01) ==
PROVIDERS: PCP Internal Medicine; Visit Provider Nurse Practitioner Family
DX: E46 Unspecified protein-calorie malnutrition (principal); R10.13 Epigastric pain; K91.2 Postsurgical malabsorption, not elsewhere classified; Z90.3 Acquired absence of stomach [part of]
CPT/HCPCS: 99204

== ENCOUNTER 2023-06-25 08:35 | Outpatient (REF) | payer MEDICAID, SELFPAY ==
[2023-06-25 09:54] LABS: Hematocrit 28.4 % (37.0-47.0); Hemoglobin 8.6 g/dl (12.0-16.0); Mean Corpuscular HGB Conc 30.3 g/dl (31.0-35.0); Mean Corpuscular Hemoglobin 28.2 pg (27.0-33.0); Mean Corpuscular Volume 93.1 fL (80.0-98.0); Mean Platelet Volume 10.4 fL (9.4-12.3); Platelet Count 197 X10*3/uL (160-400); Red Blood Count 3.05 X10*6/uL (4.20-5.50); Red Cell Distribution Width 15.5 % (11.0-16.0); White Blood Count 7.7 X10*3/uL (4.8-10.8)
== END 2023-06-25 08:36 | disposition home or self-care (01) ==
LOC: HO.LAB 08:35
PROVIDERS: PCP Internal Medicine; Visit Provider Nurse Practitioner Family
DX: K21.9 Gastro-esophageal reflux disease without esophagitis (principal); R10.13 Epigastric pain; D50.9 Iron deficiency anemia, unspecified; E46 Unspecified protein-calorie malnutrition; K91.2 Postsurgical malabsorption, not elsewhere classified; Z90.3 Acquired absence of stomach [part of]
CPT/HCPCS: 36415; 85027; 99212

== ENCOUNTER 2023-06-25 08:35 | Outpatient (AMB) | payer MEDICAID, SELFPAY ==
[2023-06-25 08:40] VITALS: BP 101/49; PULSE 97; BMI 24.7
--- NOTE | 2023-06-25 08:40 | MHC.OFFVIS ---
Intake Vital Signs 06/25/23 08:40 Height 5 ft 2 in Weight 135 lb BMI 24.7 BP 101/49 L Blood Pressure Location Lt brachial Position Sitting Pulse 97 Intake Visit Reasons: 5 week follow up Intake Note: Patient 5 weeks follow up Patient denies any GI issues for today. Taste Tester Required: No Accompanied by: Daughter Allergies baclofen Allergy (Intermediate, Verified 06/25/23 08:40) Swelling amoxicillin Allergy (Mild, Verified 06/25/23 08:40) yeast infection gabapentin Adverse Reaction (Mild, Verified 06/25/23 08:40) Swelling Meloxicam Allergy (Unknown, Uncoded 05/21/23 08:50) swelling HPI 5 week follow up HPI Details LAST VISIT: Malnutrition Abdominal pain Intestinal malabsorption following gastrectomy Plan Will repeat patient's CBC, thyroid study, iron profile, ferritin. Patient will return in 5 weeks, will send her for colonoscopy and upper endoscopy. Patient had Hemoccult negative stools back in April. Patient might need to go for iron transfusion due to inability to absorb were oral iron after her bariatric surgery. Patient will call our office if she will have worsening GI symptoms. Patient is agreeable to this plan and verbalizes understanding of instructions. She was given the opportunity to ask questions and all questions answered. Orders Orders Complete Blood Count no Diff 05/21/23 K21.9 IRON PROFILE 05/21/23 D64.9 Vitamin B12 and Folate 05/21/23 R19.7 Lipase 05/21/23 R10.9 Liver Panel 05/21/23 R10.9 Ferritin 05/21/23 R74.8 TSH reflex Free T4 05/21/23 K59.00 Vitamin D 25-OH (D2 and D3) 05/21/23 E55.9 TODAY'S VISIT Patient is here today for follow-up. Patient is in the wheelchair, accompanied by her daughter. Patient reports that since the last time I have seen her she has been feeling better. Patient continues to have low H&H and low iron. Patient will be sent to see Hematology for iron infusions. Patient reports that she has been moving her bowels better now. Takes MiraLax daily. Denies any melena, hematochezia or ribbon like stools. Patient denies dyspepsia, dysphagia or odynophagia. Patient states that she has been taking pantoprazole in her symptoms of acid reflux is suppressed. Patient states that she is feeling much better. Denies any GI concerning symptoms today. Patient denies any issues with anesthesia in the past. Not on any anticoagulation medication. Denies any history of sleep apnea. Patient is taking iron and no stool stop few days before the procedure. [facility] Medical History (Updated 06/09/23 @ 20:06 by Virginia Sharpe, [facility]) Excess skin of upper extremity Body mass index (BMI) of 32.0-32.9 in adult Obesity (BMI 30-39.9) Major depressive disorder, recurrent Anemia Internal hernia Lipoma History of lipoma Sleep apnea with use of continuous positive airway pressure (CPAP) Hypercholesterolemia Type 2 diabetes mellitus Lymphedema Migraines Anxiety Back pain Arthritis Carpal tunnel syndrome H/O nephrolithotomy with removal of calculi Surgical History H/O hernia repair History of gastric surgery Hx of colonoscopy Hx of lumpectomy H/O cervical discectomy History of Zane-en-Y gastric bypass S/P carpal tunnel release Hx of section S/P knee replacement History of back surgery Family History Father No problems noted. Mother Arthritis Brother No problems noted. Brother No problems noted. Sister No problems noted. Sister No problems noted. Sister No problems noted. Sister No problems noted. Son No problems noted. Daughter No problems noted. Social History Household Members: Other Housing: Skilled Nursing Alcohol intake: former Patient Tobacco Use Status: Former Tobacco user Quit Date: 2017 service: No Current occupational status: disabled Review of Systems Const Denies weight gain and Denies weight loss ENT Reports no additional complaints, Denies dysphagia and Denies odynophagia Card Reports no additional complaints Resp Reports no additional complaints GI Denies abdominal pain, Denies belching, Denies melena, Denies bloating, Denies change in bowel habits, Denies dysphagia, Denies excessive flatus, Denies dyspepsia, Denies heartburn, Denies diarrhea, Denies loose stools, Denies nausea, Denies odynophagia and Denies vomiting Musc Reports no additional complaints Neuro Reports no additional complaints Psych Reports no additional complaints Endo Reports no additional complaints Physical Exam Vital Signs: Last Vital Signs Pulse 97 06/25/23 08:40 BP 101/49 L 06/25/23 08:40 BMI result Body Mass Index 24.7 Const Other: in the wheelchair General: healthy appearing, no acute distress and well developed Nutritional Appearance: well nourished Orientation/consciousness: patient oriented x3 Resp Effort & Inspection: normal respiratory effort, able to speak in complete sentences, no tracheal deviation and symmetric chest movement Auscultation: clear to auscultation bilaterally Cardio Rate: regular rate GI Inspection: Yes normal to inspection and No distended Palpation (GI): Soft to palpation, not firm, nontender and No hepatosplenomegaly present Auscultation: normal bowel sounds General: Yes no CVA tenderness Back/Spine/Pelvis Back: no CVA tenderness Skin General skin exam: elasticity normal, turgor normal and dry skin Neuro General: patient oriented x3 Psych Appearance: grossly normal Mental Status: mental status grossly normal Results Reviewed Results Reviewed: Laboratory Tests 05/21/23 10:00 RBC 3.04 L Hgb 9.0 L Hct 29.3 L Iron 67 TIBC 122 L Ferritin 374 H Total Bilirubin 0.3 Direct Bilirubin 0.1 AST 15 ALT 13 Alkaline Phosphatase 113 Lipase 5 L Vitamin B12 485 25-OH Vitamin D Total 24 L Folate 10.6 Assessment & Plan Assessment & Plan (1) Anemia: Code(s): D64.9 - Anemia, unspecified Qualifiers: Anemia type: iron deficiency Iron deficiency anemia type: unspecified iron deficiency Qualified Code(s): D50.9 - Iron deficiency anemia, unspecified (2) Malnutrition: Code(s): E46 - Unspecified protein-calorie malnutrition Qualifiers: Malnutrition type: unspecified type Qualified Code(s): E46 - Unspecified protein-calorie malnutrition (3) Abdominal pain: Code(s): R10.9 - Unspecified abdominal pain Qualifiers: Abdominal location: epigastric Qualified Code(s): R10.13 - Epigastric pain (4) Intestinal malabsorption following gastrectomy: Code(s): K91.2 - Postsurgical malabsorption, not elsewhere classified; Z90.3 - Acquired absence of stomach [part of] Plan Patient denies any abdominal pain or discomfort and is feeling much better today. Moving her bowels well. Continue MiraLax. Continue pantoprazole for reflux. Patient will be sent for upper endoscopy as well as for colonoscopy. Patient denies any issues with anesthesia in the past. No history of sleep apnea. Not on any anticoagulation medication. Patient denies any chest pain or shortness of breath. We will book upper endoscopy and colonoscopy. Patient will repeat blood work. Referral to Hematology sent for possible iron transfusions. Appointment was made for Wednesday. I will see patient after procedure, sooner on as needed basis. What to expect before during and after the procedure discussed with patient. The importance of clear liquid diet as well as good bowel prep discussed with patient. Thank you for allowing me to participate in her care Orders: Orders Complete Blood Count no Diff Today K21.9 - Gastro-esophageal reflux disease without esophagitis Referrals Hematology & Oncology Referral D64.9 - Anemia, unspecified Medications: New bisacodyl (Dulcolax (bisacodyl)) take 4 tabs at noon the day before your colonoscopy 20 mg (4 x 5 mg) PO ONCE 1 day 4 tabs 0RF constipation Z12.11 - Encounter for screening for malignant neoplasm of colon polyethylene glycol 3350 (Miralax) As directed by gastroenterology department at [facility] 238 grams PO ONCE 238 grams 0RF Z12.11 - Encounter for screening for malignant neoplasm of colon Coding Level of Care Code Est Pt Level 4 (62925) Diagnoses Iron deficiency anemia, unspecified iron deficiency anemia type D50.9 Anemia type: iron deficiency Iron deficiency anemia type: unspecified iron deficiency Malnutrition, unspecified type E46 Malnutrition type: unspecified type Abdominal pain R10.13 Abdominal location: epigastric Intestinal malabsorption following gastrectomy K91.2; Z90.3 Time Spent (min) 35 Comment 20 minutes spent with patient and additional 15 minutes spent reviewing her records
== END 2023-06-25 09:08 | disposition home or self-care (01) ==
PROVIDERS: PCP Internal Medicine; Visit Provider Nurse Practitioner Family
DX: D50.9 Iron deficiency anemia, unspecified (principal); E46 Unspecified protein-calorie malnutrition; R10.13 Epigastric pain; K91.2 Postsurgical malabsorption, not elsewhere classified; Z90.3 Acquired absence of stomach [part of]
CPT/HCPCS: 99214

== ENCOUNTER → 2023-06-28 08:59 | Outpatient (BNV) | payer MEDICAID, SELFPAY | PROVIDERS: PCP Internal Medicine; Visit Provider Internal Medicine Medical Oncology | DX: D64.9 Anemia, unspecified (principal) | CPT/HCPCS: 99204; 99213 ==

== ENCOUNTER 2023-07-05 09:26 | Day surgery (SDC) | payer MEDICAID, SELFPAY ==
--- NOTE | 2023-07-02 09:24 | P.CONAN_ITS ---
Documented by User: Johanna Dalton NP 07/02/23 09:26 HPI - Anesthesia Eval Consult details Narrative: 58yo F for Upper Endoscopy and Colonoscopy ON LICENSE OF [facility] Active Problems Active Problems: All Active Problems (Updated 06/28/23 @ 10:52 by Bronwyn Alves MD) Normochromic normocytic anemia (Acute) Facial pain (Acute) IIH (idiopathic intracranial hypertension) (Acute) TRUNG (obstructive sleep apnea) (Acute) Chronic migraine without aura (Acute) Hypotension (Acute) Excess skin of abdomen (Acute) Overweight (Acute) Malnutrition (Acute) Hypoalbuminemia (Acute) Abdominal pain (Acute) Partial small bowel obstruction (Acute) Vitamin D deficiency (Acute) Intestinal malabsorption following gastrectomy (Acute) Past Medical History Medical History (Updated 06/28/23 @ 10:52 by Bronwyn Alves MD) Excess skin of upper extremity Body mass index (BMI) of 32.0-32.9 in adult Obesity (BMI 30-39.9) Major depressive disorder, recurrent Anemia Internal hernia Lipoma History of lipoma Sleep apnea with use of continuous positive airway pressure (CPAP) Hypercholesterolemia Type 2 diabetes mellitus Lymphedema Migraines Anxiety Back pain Arthritis Carpal tunnel syndrome H/O nephrolithotomy with removal of calculi Family History Family History Father No problems noted. Mother Arthritis Brother No problems noted. Brother No problems noted. Sister No problems noted. Sister No problems noted. Sister No problems noted. Sister No problems noted. Son No problems noted. Daughter No problems noted. Family history of problems with anesthesia: No Surgical History Surgical History (Updated 06/28/23 @ 10:52 by Bronwyn Alves MD) H/O hernia repair History of gastric surgery Hx of colonoscopy Hx of lumpectomy H/O cervical discectomy History of Zane-en-Y gastric bypass S/P carpal tunnel release Hx of section S/P knee replacement History of back surgery History of Problems with Anesthesia: No Social History Social History (Updated 06/28/23 @ 09:07 by Marcela Kerns) Household Members: Other Housing: Senior Living Alcohol intake: former Patient Tobacco Use Status: Former Tobacco user Quit Date: 2017 service: No Current occupational status: disabled Meds Allergies Allergy/AdvReac Type Severity Reaction Status Date / Time baclofen Allergy Intermediate Swelling Verified 06/28/23 09:07 amoxicillin Allergy Mild yeast Verified 06/28/23 09:07 infection gabapentin AdvReac Mild Swelling Verified 06/28/23 09:07 Meloxicam Allergy Unknown swelling Uncoded 06/28/23 09:07 Home Medications Medication Instructions Recorded Confirmed Last Taken Type cholecalciferol (vitamin D3) 25 25 mcg PO DAILY 06/03/22 06/28/23 Unknown History mcg (1,000 unit) tablet magnesium oxide 400 mg (241.3 mg 400 mg PO DAILY 06/03/22 06/28/23 Unknown History magnesium) tablet riboflavin (vitamin B2) 100 mg 200 mg PO BEDTIME 06/03/22 06/28/23 Unknown History tablet valacyclovir 1 gram tablet 1,000 mg PO DAILY 06/03/22 06/28/23 Unknown History lurasidone 120 mg tablet (Latuda) 120 mg PO DAILY 07/09/22 06/28/23 Unknown History ascorbic acid (vitamin C) 500 mg 500 mg PO DAILY 08/07/22 06/28/23 Unknown History tablet (Vitamin C) polyethylene glycol 3350 17 17 g PO DAILY 09/25/22 06/28/23 Unknown History gram/dose oral powder acetaminophen 325 mg capsule 650 mg PO Q6H PRN Pain 12/28/22 06/28/23 Unknown History dicyclomine 10 mg capsule 10 mg PO DAILY 12/28/22 06/28/23 Unknown History levetiracetam 500 mg tablet 500 mg PO BID 12/28/22 06/28/23 Unknown History pantoprazole 40 mg granules 40 mg PO DAILY 12/28/22 06/28/23 Unknown History delayed-release for susp in packet sodium phosphates 19 gram-7 197 ml MT DAILY PRN Constipation 12/28/22 06/28/23 Unknown History gram/118 mL enema (Fleet Enema) midodrine 5 mg tablet 10 mg PO TID 04/12/23 06/28/23 Unknown History nortriptyline 25 mg capsule 25 mg PO BID 04/12/23 06/28/23 Unknown History cetirizine 10 mg tablet (All Day 10 mg PO DAILY PRN Allergy Symptoms 05/21/23 06/28/23 Unknown History Allergy (cetirizine)) ferrous sulfate 325 mg (65 mg 325 mg PO BID 05/21/23 06/28/23 Unknown History iron) tablet Exam Pertinent Lab Results Pertinent Lab Results: Laboratory Tests 06/28/23 09:42 WBC 8.1 Hgb 9.1 L Hct 29.8 L Plt Count 242 Sodium 138 Potassium 4.0 Chloride 106 Carbon Dioxide 24 BUN 21 H Creatinine 0.69 Narrative Narrative: EKG 2022 Vent. Rate : 114 BPM Atrial Rate : 000 BPM P-R Int : 000 ms QRS Dur : 068 ms QT Int : 458 ms P-R-T Axes : 000 007 065 degrees QTc Int : 631 ms Sinus tachycardia Poor data quality RSR' or QR pattern in V1 suggests right ventricular conduction delay Low voltage QRS Nonspecific T wave abnormality Abnormal ECG When compared with ECG of 03-JUL-2021 20:45, Vent. rate has increased BY 55 BPM Assessment and Plan Assessment Anesthesia Assessment: Chart Reviewed Final Anesthetic Review Family History of Problems with Anesthesia: No History of Problems with Anesthesia: No Documented by User: Bhakti Estes MD 07/05/23 10:57 ON LICENSE OF [facility] Past Medical History Medical History (Updated 06/28/23 @ 10:52 by Bronwyn Alves MD) Excess skin of upper extremity Body mass index (BMI) of 32.0-32.9 in adult Obesity (BMI 30-39.9) Major depressive disorder, recurrent Anemia Internal hernia Lipoma History of lipoma Sleep apnea with use of continuous positive airway pressure (CPAP) Hypercholesterolemia Type 2 diabetes mellitus Lymphedema Migraines Anxiety Back pain Arthritis Carpal tunnel syndrome H/O nephrolithotomy with removal of calculi Family History Family History Father No problems noted. Mother Arthritis Brother No problems noted. Brother No problems noted. Sister No problems noted. Sister No problems noted. Sister No problems noted. Sister No problems noted. Son No problems noted. Daughter No problems noted. Surgical History Surgical History (Updated 06/28/23 @ 10:52 by Bronwyn Alves MD) H/O hernia repair History of gastric surgery Hx of colonoscopy Hx of lumpectomy H/O cervical discectomy History of Zane-en-Y gastric bypass S/P carpal tunnel release Hx of section S/P knee replacement History of back surgery Social History Social History (Updated 06/28/23 @ 09:07 by Marcela Kerns) Household Members: Other Housing: Senior Living Alcohol intake: former Patient Tobacco Use Status: Former Tobacco user Quit Date: 2017 service: No Current occupational status: disabled Meds Allergies Allergy/AdvReac Type Severity Reaction Status Date / Time baclofen Allergy Intermediate Swelling Verified 06/28/23 09:07 amoxicillin Allergy Mild yeast Verified 06/28/23 09:07 infection gabapentin AdvReac Mild Swelling Verified 06/28/23 09:07 Meloxicam Allergy Unknown swelling Uncoded 06/28/23 09:07 Home Medications Medication Instructions Recorded Confirmed Last Taken Type cholecalciferol (vitamin D3) 25 25 mcg PO DAILY 06/03/22 06/28/23 Unknown History mcg (1,000 unit) tablet magnesium oxide 400 mg (241.3 mg 400 mg PO DAILY 06/03/22 06/28/23 Unknown History magnesium) tablet riboflavin (vitamin B2) 100 mg 200 mg PO BEDTIME 06/03/22 06/28/23 Unknown History tablet valacyclovir 1 gram tablet 1,000 mg PO DAILY 06/03/22 06/28/23 Unknown History lurasidone 120 mg tablet (Latuda) 120 mg PO DAILY 07/09/22 06/28/23 Unknown History ascorbic acid (vitamin C) 500 mg 500 mg PO DAILY 08/07/22 06/28/23 Unknown History tablet (Vitamin C) polyethylene glycol 3350 17 17 g PO DAILY 09/25/22 06/28/23 Unknown History gram/dose oral powder acetaminophen 325 mg capsule 650 mg PO Q6H PRN Pain 12/28/22 06/28/23 Unknown History dicyclomine 10 mg capsule 10 mg PO DAILY 12/28/22 06/28/23 Unknown History levetiracetam 500 mg tablet 500 mg PO BID 12/28/22 06/28/23 Unknown History pantoprazole 40 mg granules 40 mg PO DAILY 12/28/22 06/28/23 Unknown History delayed-release for susp in packet sodium phosphates 19 gram-7 197 ml MT DAILY PRN Constipation 12/28/22 06/28/23 Unknown History gram/118 mL enema (Fleet Enema) midodrine 5 mg tablet 10 mg PO TID 04/12/23 06/28/23 Unknown History nortriptyline 25 mg capsule 25 mg PO BID 04/12/23 06/28/23 Unknown History cetirizine 10 mg tablet (All Day 10 mg PO DAILY PRN Allergy Symptoms 05/21/23 06/28/23 Unknown History Allergy (cetirizine)) ferrous sulfate 325 mg (65 mg 325 mg PO BID 05/21/23 06/28/23 Unknown History iron) tablet Exam Airway Mallampati Class: II (denies any loose, ouole missing) TM Dist: >3cm Neck ROM: Full Heart: rrr Lungs: cta Assessment and Plan Assessment Anesthesia Assessment: Anesthesia Plan Discussed Final Anesthetic Review NPO: Yes ASA Class: III Final Preanesthetic Review: No Changes in Pt Med Stat, Meds/Allgs Chart Reviewed and Consent Obtained/Reviewed Patient Risk: Intermediate Procedure Risk: Intermediate Anesthetic Plan Anesthetic Plan: MAC: Disposition: Standard PACU
--- NOTE | 2023-07-05 10:53 | MHC.SHP ---
Pre-Procedural Eval Section A Date of Service: 07/05/23 The patient is an INPATIENT: No Changes since office visit: Yes Patient answered all questions; No Cold of Flu in the past 2 weeks, No New Medical Problems and No Changes in Medication The History & Physical has been completed within 30 days and I have reviewed it.: Yes Section B Chief Complaint: Iron deficiency anemia, chronic constipation Allergies: Allergies Allergy/AdvReac Type Severity Reaction Status Date / Time baclofen Allergy Intermediate Swelling Verified 06/28/23 09:07 amoxicillin Allergy Mild yeast Verified 06/28/23 09:07 infection gabapentin AdvReac Mild Swelling Verified 06/28/23 09:07 Meloxicam Allergy Unknown swelling Uncoded 06/28/23 09:07 Plan Diagnosis/Plan: Unchanged I have reviewed the history and physical and performed a pertinent physical examination on my patient. No changes have occurred unless specified. Time Spent With Patient Time: Total time managing care of this patient today ____ minutes.
[2023-07-05 11:34] VITALS: BP 110/63; PULSE 77; RESP 18; TEMP 36.4; O2SAT 100; BMI 23.7
[2023-07-05] MEDS: Lactated Ringers 1,000 ML 100 ML IVCONT (11:41)
--- NOTE | 2023-07-05 12:05 | W.PM.OPN ---
Operative Note Operative Note Date of Service: 07/05/23 Narrative: FLEXIBLE TRANSORAL UPPER GASTROINTESTINAL ENDOSCOPY WITH BIOPSIES AND COLONOSCOPY TILL CECUM Pre-op diagnosis: Colon cancer screening, Iron-deficiency anemia, chronic constipation Post-op diagnosis: Gastritis, Gastric bypass status, diverticulosis, hemorrhoids Endoscopist:Ayah Hart MD Anesthesia:?MAC UPPER ENDOSCOPY Consent: Indications for the procedure and potential complications of bleeding, perforation, reaction to medications and missed diagnosis were discussed with the patient and informed consent was obtained. Instrument: Olympus GIF H 190 mid size upper endoscope Monitoring: Vital signs and clinical assessment, continuous EKG monitoring, Pulse oximetry, Carbon Dioxide monitoring and blood pressure monitoring were done throughout the procedure. Procedure: The patient was placed in the left lateral decubitis position and pre-procedure medications were administered and a bite block was placed. The endoscope was inserted into the mouth and advanced under direct vision to the third part of duodenum. A careful inspection was made as the upper endoscope was withdrawn including a retroflexed examination of the proximal stomach; Findings and interventions are described below. Findings: Larynx: Normal Esophagus: GE junction at 35 cms. No esophagitis or Holloway's. Stomach: Zane en Y gastric bypass status with gastro-jejunal anastomosis at 45 cms. A long suture in place at the margin of the anastomotic site.. Attempts to cut and removed with sutire with an endoscopic scissors and hot snare were unsuccessful. Mild gastric erythema. Biopsies were obtained. Grade 2 flap valve on retroflexed examination of the cardia. Jejunum: Normal - biopsies were obtained to check for celiac sprue Intervention: Biopsies as noted above COLONOSCOPY PROCEDURE NOTE Consent: Indications for the procedure and potential complications of bleeding, perforation, reaction to medications and missed diagnosis were discussed with the patient and informed consent was obtained. Instrument: Olympus PCF H 190 L variable stiffness pediatric colonoscope Monitoring: Vital signs and clinical assessment, intermittent blood pressure monitoring, continuous EKG monitoring, Pulse oximetry and Carbon Dioxide monitoring were done throughout the procedure. Colon withdrawl time was 17 minutes. Procedure: The patient was placed in the left lateral decubitis position and pre-procedure medications were administered. After a digital rectal examination of the ano-rectum, the video colonoscope was inserted into the rectum and advanced through the colon to the cecum. The colonoscope was slowly withdrawn in a retrograde panoramic fashion and the colon mucosa was carefully examined including a retroflexed view of the rectum. Findings and interventions are described below. Procedure Difficulty: Colon was long and tortuous and there was some spasm and loop formation Findings: Terminal Ileum: Not evaluated Cecum: Normal Ascending Colon: Normal Transverse Colon: Normal Descending Colon: Normal Sigmoid Colon: Moderate diverticulosis Rectum: Normal Ano-rectum: Small internal hemorrhoids Colon preparation: Good in the right colon after copious irrigation and Fair to poor in the left colon due to undigested vegetable matter which could not be suctioned Impression and Post Procedure Diagnosis: Endoscopy Findings: STOMACH: Zane en Y gastric bypass status with gastro-jejunal anastomosis at 45 cms. A long suture in place at the margin of the anastomotic site.. Attempts to cut and removed with sutire with an endoscopic scissors and hot snare were unsuccessful. Mild gastric erythema. Biopsies were obtained. JEJUNUM: Normal - biopsies were obtained to check for celiac sprue Colonoscopy Findings: No polyps were detected Moderate diverticulosis seen in the sigmoid colon Small hemorrhoids on retroflexed exam. Plan: Await pathology results Patient has an appointment on 07/19/23 in the GI Clinic with Virginia Sharpe FNP-BC. Repeat Colonoscopy in 1-2 years due to suboptimal prep (Biscodyl 2 tabs daily for 5 days before colonoscopy and a two day prep) An adult colonoscope for future colonoscopies. Above findings were reviewed with the patient and diverticulosis handout was given in the discharge area BIOPSIES SHOWED: A. Small bowel, biopsy: Small bowel mucosa with preserved villi and no specific change; no evidence of celiac disease. B. Stomach, biopsy: Gastric body mucosa with reactive changes and minimal chronic inactive gastritis; negative for H pylori, intestinal metaplasia and dysplasia
[2023-07-05 13:02] VITALS: BP 93/43; PULSE 90; RESP 16; TEMP 36.3; O2SAT 100
[2023-07-05 13:17] VITALS: BP 114/71; PULSE 86; RESP 16; TEMP 36.3; O2SAT 100
== END 2023-07-05 13:50 | disposition home or self-care (01) ==
PROVIDERS: PCP Internal Medicine; Visit Provider Internal Medicine Gastroenterology
PROC: (CPT 43239; principal; 2023-07-05 11:50)
DX: K29.60 Other gastritis without bleeding (principal); K21.9 Gastro-esophageal reflux disease without esophagitis; K59.00 Constipation, unspecified; K63.89 Other specified diseases of intestine; Z12.11 Encounter for screening for malignant neoplasm of colon; K57.30 Diverticulosis of large intestine without perforation or abscess without bleeding; K64.8 Other hemorrhoids; K56.2 Volvulus; Z98.84 Bariatric surgery status; E11.9 Type 2 diabetes mellitus without complications; E78.00 Pure hypercholesterolemia, unspecified; D50.9 Iron deficiency anemia, unspecified
CPT/HCPCS: 43239; 45378; 88305; 88313; 88342; J2371; J2704

== ENCOUNTER → 2023-07-05 09:26 | Outpatient (BNV) | payer MEDICAID, SELFPAY | PROVIDERS: PCP Internal Medicine; Visit Provider Internal Medicine Gastroenterology | DX: Z12.11 Encounter for screening for malignant neoplasm of colon (principal); K59.04 Chronic idiopathic constipation; K57.30 Diverticulosis of large intestine without perforation or abscess without bleeding; K64.8 Other hemorrhoids; D50.9 Iron deficiency anemia, unspecified; K29.70 Gastritis, unspecified, without bleeding; Z98.84 Bariatric surgery status | CPT/HCPCS: 43239; 45378 ==

== ENCOUNTER 2023-07-06 08:07 | Outpatient (AMB) | payer MEDICAID, SELFPAY ==
--- NOTE | 2023-07-06 08:12 | MHC.OFFVIS ---
Intake Vital Signs 07/06/23 08:13 Height 5 ft 6 in Weight 149 lb 8 oz BMI 24.1 BP 112/68 Blood Pressure Location Rt brachial Position Sitting Respiration 16 Pulse 96 Pulse Source Pulse Oximeter Intake Visit Reasons: Botox Intake Note: Pt presents to office for Botox injections. [employer] Required: No Allergies baclofen Allergy (Intermediate, Verified 07/06/23 08:12) Swelling amoxicillin Allergy (Mild, Verified 07/06/23 08:12) yeast infection gabapentin Adverse Reaction (Mild, Verified 07/06/23 08:12) Swelling Meloxicam Allergy (Unknown, Uncoded 07/06/23 08:12) swelling Medication List - Last Reconciled 07/06/23 by Yas Adam MD acetaminophen 650 mg PO Q6H PRN ascorbic acid (vitamin C) (Vitamin C) 500 mg PO DAILY blood pressure monitor Check BP bid and prn lightheadedness cetirizine (All Day Allergy (cetirizine)) 10 mg PO DAILY PRN cholecalciferol (vitamin D3) 25 mcg PO DAILY dicyclomine 10 mg PO DAILY ferrous sulfate 325 mg PO BID fludrocortisone 0.1 mg PO DAILY levetiracetam 500 mg PO BID lurasidone (Latuda) 120 mg PO DAILY magnesium oxide 400 mg PO DAILY midodrine 10 mg PO TID nortriptyline 25 mg PO BID pantoprazole 40 mg PO DAILY polyethylene glycol 3350 17 grams PO DAILY quetiapine 25 mg PO BEDTIME riboflavin (vitamin B2) 200 mg PO BEDTIME riboflavin (vitamin B2) (Vitamin B-2) 200 mg (2 x 100 mg) PO BID 28 days sodium phosphates 19-7 gram/118 mL (Fleet Enema) 197 mL SD DAILY PRN topiramate 100 mg PO BEDTIME valacyclovir 1,000 mg PO DAILY HPI HPI Comments History of Present Illness Details ? 58y/o female comes for treatment of migraines with botox. How many migraine days prior to botox 25-30/month How long do the migraines last 1-2 days Intensity of migraine8-10 ER visits related to migraine 1-2 Effectiveness of botox from last two treatment(s) How many migraine days since receiving treatment:5-10/month Change? in intensity of migraine?decreased Change in frequency of migraine?decreased Change in use of acute medication for migraine?decreased Change in quality of life?improved ER visits related to migraine?none Explanation for any gaps in treatment- hospitalized for syncope, malnutrition Have at least three months elapsed since last treatment (Last botox date - frequency of injections) 12/28/22 ??? Most frequent reported adverse reactions following injection of botox for chronic migraine include neck pain (9%), headache(5%), eyelid ptosis(4%), migraine(4%), muscular weakness(4%), musculuskeletal stiffness(4%), bronchitis(3%), injection site pain (3%), musculoskeletal pain(3%), myalgia(3%), facial paresis(2%), HTN(2%) and muscle spasms(2%) were discussed in detail. ??? Botulinum toxin typeA 200units Lot no [id number] expiration November 2025 was diluted with 4 cc of normal saline . ??? Muscles injected- ??? Frontalis 4 sites ??? Procerus 1 site ??? Receiving Inspector- 2 sites ??? Temporalis- 8 sites ??? Occipitalis- 6 sites ??? Cervical paraspinals- 4 sites ??? Trapezius- 6 sites- 5 units each ??? 5 units each in 31 site ??? Total use- 155units ??? Discarded-45units FOR[facility]LY [facility], [facility]–1983 Medical History Major depressive disorder, recurrent Internal hernia Excess skin of upper extremity Lipoma History of lipoma Sleep apnea with use of continuous positive airway pressure (CPAP) Hypercholesterolemia Type 2 diabetes mellitus Anemia Lymphedema Migraines Anxiety Back pain Arthritis Carpal tunnel syndrome Body mass index (BMI) of 32.0-32.9 in adult Obesity (BMI 30-39.9) H/O nephrolithotomy with removal of calculi Surgical History H/O hernia repair History of gastric surgery Hx of colonoscopy Hx of lumpectomy H/O cervical discectomy History of Zane-en-Y gastric bypass S/P carpal tunnel release Hx of section S/P knee replacement History of back surgery Family History Father No problems noted. Mother Arthritis Brother No problems noted. Brother No problems noted. Sister No problems noted. Sister No problems noted. Sister No problems noted. Sister No problems noted. Son No problems noted. Daughter No problems noted. Social History Household Members: Other Housing: [facility] Alcohol intake: former Patient Tobacco Use Status: Former Tobacco user Quit Date: 2017 service: No Current occupational status: disabled Physical Exam Vital Signs: Last Vital Signs Pulse 96 07/06/23 08:13 Resp 16 07/06/23 08:13 BP 112/68 07/06/23 08:13 BMI result Body Mass Index 24.1 Const General: healthy appearing, no acute distress and well developed Nutritional Appearance: well nourished Orientation/consciousness: patient oriented x3 Resp Effort & Inspection: normal respiratory effort, able to speak in complete sentences, no tracheal deviation and symmetric chest movement Auscultation: clear to auscultation bilaterally Cardio Rate: regular rate GI Inspection: Yes normal to inspection and No distended Palpation (GI): Soft to palpation, not firm, nontender and No hepatosplenomegaly present Auscultation: normal bowel sounds General: Yes no CVA tenderness Back/Spine/Pelvis Back: no CVA tenderness Skin General skin exam: elasticity normal, turgor normal and dry skin Neuro General: patient oriented x3 Psych Appearance: grossly normal Mental Status: mental status grossly normal Office Procedures Botulinum toxin Injection 38631 - Migraine Procedure code (CPT) selection complete Office Meds onabotulinumtoxinA 200 unit solution for injection Performing Provider: Yas Adam MD Performing Location: [facility] Administered by: Yas Adam MD on 07/06/23 08:38 Dose Route Admin Location Dispensed Lot Number Expiration Date [facility] [employer] 155 unit IM 200 units [id number] 11/12/25 7196-2367-41 [employer]ER[employer]/BOTOX Comments: see HPI Assessment & Plan Assessment & Plan (1) Chronic migraine without aura: Comment: w/ neuralgia component over left sikh Code(s): G43.709 - Chronic migraine without aura, not intractable, without status migrainosus Plan Patient tolerated the procedure well she will call with any side effects Orders: Orders AMB Botulinum toxin Injection Today G43.709 - Chronic migraine without aura, not intractable, without status migrainosus Coding Level of Care Code Est Pt Level 1 (28340) Diagnoses Chronic migraine without aura G43.709 CPT Codes Botox Injection - Botox 3: 93409 - Migraine ([id number])
[2023-07-06 08:13] VITALS: BP 112/68; PULSE 96; RESP 16; BMI 24.1
== END 2023-07-06 08:40 | disposition home or self-care (01) ==
PROVIDERS: PCP Internal Medicine; Referring Provider Internal Medicine; Visit Provider Psychiatry & Neurology Neurology
DX: G43.709 Chronic migraine without aura, not intractable, without status migrainosus (principal)
CPT/HCPCS: 64615

== ENCOUNTER → 2023-07-06 08:07 | Outpatient (BNVA) | payer MEDICAID, SELFPAY | PROVIDERS: PCP Internal Medicine; Visit Provider Psychiatry & Neurology Neurology | DX: G43.709 Chronic migraine without aura, not intractable, without status migrainosus (principal) | CPT/HCPCS: 64615; 99211; J0585 ==

== ENCOUNTER 2023-07-13 10:07 | Outpatient (AMB) | payer MEDICAID, SELFPAY ==
--- NOTE | 2023-07-13 10:21 | A.OFFVIS_ITS ---
Intake VS Expanded 07/13/23 10:28 BP 134/63 Blood Pressure Location Rt brachial Blood Pressure Position Sitting Pulse 86 Pulse Source Pulse Oximeter Temp 97.0 F Temperature Source Tympanic Pulse Oximetry 97 Oxygen Delivery Method Room Air Height 5 ft 6 in Weight 155 lb 6.4 oz BMI 25.1 Body Fat % 15.9 Body Fat Mass 24.6 Fat Free Mass 130.6 Visceral Fat Rating 4.0 Body Water % 59.7 Body Water Mass 92.6 Muscle Mass/Score 123.8 Basal Metabolic Rate/Score 1,684 Intake Visit Reasons: (OV) PO LSG 04/05/19 Allergies baclofen Allergy (Intermediate, Verified 07/13/23 10:28) Swelling amoxicillin Allergy (Mild, Verified 07/13/23 10:28) yeast infection gabapentin Adverse Reaction (Mild, Verified 07/13/23 10:28) Swelling Meloxicam Allergy (Unknown, Uncoded 07/13/23 10:28) swelling Medication List - Last Reconciled 07/13/23 by KINDRA Hopkins acetaminophen 650 mg PO Q6H PRN ascorbic acid (vitamin C) (Vitamin C) 500 mg PO DAILY blood pressure monitor Check BP bid and prn lightheadedness cetirizine (All Day Allergy (cetirizine)) 10 mg PO DAILY PRN cholecalciferol (vitamin D3) 25 mcg PO DAILY dicyclomine 10 mg PO DAILY ferrous sulfate 325 mg PO BID fludrocortisone 0.1 mg PO DAILY levetiracetam 500 mg PO BID lurasidone (Latuda) 120 mg PO DAILY magnesium oxide 400 mg PO DAILY midodrine 10 mg PO TID nortriptyline 25 mg PO BID pantoprazole 40 mg PO DAILY polyethylene glycol 3350 17 grams PO DAILY quetiapine 25 mg PO BEDTIME riboflavin (vitamin B2) 200 mg PO BEDTIME riboflavin (vitamin B2) (Vitamin B-2) 200 mg (2 x 100 mg) PO BID 28 days sodium phosphates 19-7 gram/118 mL (Fleet Enema) 197 mL ND DAILY PRN topiramate 100 mg PO BEDTIME valacyclovir 1,000 mg PO DAILY HPI HPI Comments History of Present Illness Details Pt presents in followup, last visit in September 2022. Recent records including those from hospitalization reviewed. Pt reports she is currently using Premier shakes due to insurance- 3 per day. Will also have a meal of rice, or sandwich, or soup. Taking iron supplements for anemia. Reports still having skin irritation of excess skin of abdomen, had been using clotrimazole previously for persistent rashes but this did not completely resolve the problem. Has to wear tight/compressive pants to hold skin in place and prevent friction. Notices an unpleasant odor when moisture collects in skin fold. Also has excess skin of arms which has been causing worsening issues. She continues to deal with painful, itchy rashes of lateral trunk and underarms due to frequent contact/rubbing/chafing due to excess skin. She has also started noticing open areas on the skin due to this. She has tried to use clotrimazole ointment on these rashes but this has not helped. Has to wear long tight sleeves to hold skin in place to prevent discomfort and to prevent rashes; cannot wear short sleeve or sleeveless shirts due to rashes but in summertime this causes worsening of rashes due to inability to wear appropriate clothing in hot weather, which also causes increase sweating and therefore worsening the rashes and odor. Excess skin is very heavy and uncomfortable, and can cause pain due to heaviness, especially with movement like exercise or normal daily activities that require the use of her arms, such as reaching for things overhead, dressing herself, or cooking over a stove. Her range of motion of arms and shoulders is limited due to pain and discomfort from excess skin. [facility] Medical History Major depressive disorder, recurrent Internal hernia Excess skin of upper extremity Lipoma History of lipoma Sleep apnea with use of continuous positive airway pressure (CPAP) Hypercholesterolemia Type 2 diabetes mellitus Anemia Lymphedema Migraines Anxiety Back pain Arthritis Carpal tunnel syndrome Body mass index (BMI) of 32.0-32.9 in adult Obesity (BMI 30-39.9) H/O nephrolithotomy with removal of calculi Surgical History (Updated 07/13/23 @ 10:58 by KINDRA Hopkins) History of Zane-en-Y gastric bypass H/O hernia repair History of gastric surgery Hx of colonoscopy Hx of lumpectomy H/O cervical discectomy S/P carpal tunnel release Hx of section S/P knee replacement History of back surgery Family History Father No problems noted. Mother Arthritis Brother No problems noted. Brother No problems noted. Sister No problems noted. Sister No problems noted. Sister No problems noted. Sister No problems noted. Son No problems noted. Daughter No problems noted. Social History (Reviewed 07/13/23 @ 10:30 by Dorothy Frank [facility]) Household Members: Other Housing: [place] Alcohol intake: former Patient Tobacco Use Status: Former Tobacco user Quit Date: 2017 service: No Current occupational status: disabled Physical Exam Vital Signs: Last Vital Signs Temp 97.0 F 07/13/23 10:28 Pulse 86 07/13/23 10:28 BP 134/63 07/13/23 10:28 Pulse Ox 97 07/13/23 10:28 Oxygen Delivery Method Room Air 07/13/23 10:28 BMI result Body Mass Index 25.1 Assessment & Plan Assessment & Plan (1) Excess skin of abdomen: Code(s): L98.7 - Excessive and redundant skin and subcutaneous tissue (2) Overweight: Code(s): E66.3 - Overweight (3) Intestinal malabsorption following gastrectomy: Code(s): K91.2 - Postsurgical malabsorption, not elsewhere classified; Z90.3 - Acquired absence of stomach [part of] (4) History of Zane-en-Y gastric bypass: Code(s): Z98.84 - Bariatric surgery status Plan Pt is doing better after hospitalization in the fall, has been able to gain some weight and has been following suggested nutrition plan of high protein shakes. Her BMI is now up to 25. I would like her to meet with RD to ensure her meal plan is optimal prior to another operation. She is already approved for skin removal surgery, good until August 25 so will try to schedule. Patient is overweight and with problems of excess skin of abdomen and arms, and is not considered stable at this time. I spent a total of 30 minutes reviewing/updating records, examining the patient and counseling the patient on weight management as detailed above. Coding Level of Care Code Est Pt Level 4 (69432) Diagnoses Excess skin of abdomen L98.7 Overweight E66.3 Intestinal malabsorption following gastrectomy K91.2; Z90.3 History of Zane-en-Y gastric bypass Z98.84
[2023-07-13 10:28] VITALS: BP 134/63; PULSE 86; TEMP 36.1; O2SAT 97; BMI 25.1
== END 2023-07-13 10:55 | disposition home or self-care (01) ==
PROVIDERS: PCP Internal Medicine; Visit Provider Physician Assistant Surgical
DX: L98.7 Excessive and redundant skin and subcutaneous tissue (principal); E66.3 Overweight; K91.2 Postsurgical malabsorption, not elsewhere classified; Z90.3 Acquired absence of stomach [part of]; Z98.84 Bariatric surgery status
CPT/HCPCS: 99214

== ENCOUNTER → 2023-07-13 10:07 | Outpatient (BNVA) | payer MEDICAID, SELFPAY | PROVIDERS: PCP Internal Medicine; Visit Provider Physician Assistant Surgical | DX: E66.3 Overweight (principal); Z68.25 Body mass index [BMI] 25.0-25.9, adult; L98.7 Excessive and redundant skin and subcutaneous tissue; K91.2 Postsurgical malabsorption, not elsewhere classified; Z98.84 Bariatric surgery status; Z90.3 Acquired absence of stomach [part of] | CPT/HCPCS: 99212 ==

== ENCOUNTER 2023-07-13 11:24 | Emergency (ER) | payer MEDICAID, SELFPAY ==
[2023-07-13 11:33] VITALS: BP 147/71; PULSE 93; RESP 18; TEMP 36.1; O2SAT 100; BMI 25.0
--- NOTE | 2023-07-13 11:34 | ECG_ITS ---
Test Reason : weakness Blood Pressure : / mmHG Vent. Rate : 089 BPM Atrial Rate : 089 BPM P-R Int : 110 ms QRS Dur : 068 ms QT Int : 372 ms P-R-T Axes : 055 003 021 degrees QTc Int : 452 ms Sinus rhythm with short IA with occasional Premature ventricular complexes Cannot rule out Anterior infarct , age undetermined Abnormal ECG When compared with ECG of 12-APR-2023 21:12, Nonspecific T wave abnormality no longer evident in Anterolateral leads Referred By: Chris Huerta Electronically Signed By:LAXMI CLARK MD
--- NOTE | 2023-07-13 11:34 | ED.GENADULT ---
HPI - General Adult General Chief complaint: General Medical Stated complaint: legs and feet swollen and in pain, neck pain Time Seen by Provider: 07/13/23 19:56 Source: patient History of Present Illness HPI narrative: Patient with history of gastric bypass , malnutrition, diabetes, migraine comes here for increased swelling of the legs for last 2 weeks no shortness of breath no abdominal swelling no chest pain patient has been taking protein shakes for last few months with denies any alcohol use no kidneys or liver issues Related Data Home Medications Medication Instructions Recorded Confirmed cholecalciferol (vitamin D3) 25 25 mcg PO DAILY 06/03/22 07/13/23 mcg (1,000 unit) tablet magnesium oxide 400 mg (241.3 mg 400 mg PO DAILY 06/03/22 07/13/23 magnesium) tablet riboflavin (vitamin B2) 100 mg 200 mg PO BEDTIME 06/03/22 07/13/23 tablet valacyclovir 1 gram tablet 1,000 mg PO DAILY 06/03/22 07/13/23 lurasidone 120 mg tablet (Latuda) 120 mg PO DAILY 07/09/22 07/13/23 ascorbic acid (vitamin C) 500 mg 500 mg PO DAILY 08/07/22 07/13/23 tablet (Vitamin C) polyethylene glycol 3350 17 17 g PO DAILY 09/25/22 07/13/23 gram/dose oral powder acetaminophen 325 mg capsule 650 mg PO Q6H PRN Pain 12/28/22 07/13/23 dicyclomine 10 mg capsule 10 mg PO DAILY 12/28/22 07/13/23 levetiracetam 500 mg tablet 500 mg PO BID 12/28/22 07/13/23 pantoprazole 40 mg granules 40 mg PO DAILY 12/28/22 07/13/23 delayed-release for susp in packet sodium phosphates 19 gram-7 197 ml ND DAILY PRN Constipation 12/28/22 07/13/23 gram/118 mL enema (Fleet Enema) midodrine 5 mg tablet 10 mg PO TID 04/12/23 07/13/23 nortriptyline 25 mg capsule 25 mg PO BID 04/12/23 07/13/23 cetirizine 10 mg tablet (All Day 10 mg PO DAILY PRN Allergy Symptoms 05/21/23 07/13/23 Allergy (cetirizine)) ferrous sulfate 325 mg (65 mg 325 mg PO BID 05/21/23 07/13/23 iron) tablet Previous Rx's Medication Instructions Recorded blood pressure monitor #1 ea 03/04/22 topiramate 100 mg tablet 100 mg PO BEDTIME #28 tabs 09/29/22 fludrocortisone 0.1 mg tablet 0.1 mg PO DAILY #30 tabs 04/24/23 quetiapine 25 mg tablet 25 mg PO BEDTIME #30 tabs 04/24/23 riboflavin (vitamin B2) 100 mg 200 mg (2 x 100 mg) PO BID 28 days 07/01/23 tablet (Vitamin B-2) #112 tabs hydrochlorothiazide 50 mg tablet 50 mg PO QAM #90 tabs 07/13/23 Allergies Allergy/AdvReac Type Severity Reaction Status Date / Time baclofen Allergy Intermediate Swelling Verified 07/13/23 11:32 amoxicillin Allergy Mild yeast Verified 07/13/23 11:32 infection gabapentin AdvReac Mild Swelling Verified 07/13/23 11:32 Meloxicam Allergy Unknown swelling Uncoded 07/13/23 10:28 Review of Systems Review of Systems: Yes all other systems are reviewed and are negative PMFSH Past Medical History Medical History Major depressive disorder, recurrent Internal hernia Excess skin of upper extremity Lipoma History of lipoma Sleep apnea with use of continuous positive airway pressure (CPAP) Hypercholesterolemia Type 2 diabetes mellitus Anemia Lymphedema Migraines Anxiety Back pain Arthritis Carpal tunnel syndrome Body mass index (BMI) of 32.0-32.9 in adult Obesity (BMI 30-39.9) H/O nephrolithotomy with removal of calculi Surgical History History of Zane-en-Y gastric bypass H/O hernia repair History of gastric surgery Hx of colonoscopy Hx of lumpectomy H/O cervical discectomy S/P carpal tunnel release Hx of section S/P knee replacement History of back surgery Family History Family History Father No problems noted. Mother Arthritis Brother No problems noted. Brother No problems noted. Sister No problems noted. Sister No problems noted. Sister No problems noted. Sister No problems noted. Son No problems noted. Daughter No problems noted. 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 Alcohol intake: former Patient Tobacco Use Status: Former Tobacco user Quit Date: 2017 Smoked in Last 30 Days: No Use of substances other than those prescribed or required for medical reasons: No Advance Directives: Yes Advance Directives on File: Yes Advance Directives Date on File: 07/04/21 Patient : No service: No Current occupational status: disabled Physical Exam ED Vital Signs: Vital Signs - 24 hr 07/13/23 11:33 07/13/23 16:42 07/13/23 19:53 Temperature 97.0 F 98.6 F Pulse Rate 93 80 84 Respiratory Rate 18 18 20 Blood Pressure 147/71 H 137/64 134/75 Pulse Oximetry 100 100 100 Oxygen Delivery Method Room Air Room Air Room Air 07/13/23 20:35 Temperature Pulse Rate Respiratory Rate Blood Pressure 143/71 H Pulse Oximetry Oxygen Delivery Method BMI result Body Mass Index 25.0 Appearance: Alert. Oriented X3. No acute distress. Eyes: PERRLA, No Nystagmus ENT: Pharynx normal. Oral Mucosa moist Neck: Normal inspection. Neck supple. CVS: Normal heart rate and rhythm. Pulses normal. Respiratory: No respiratory distress. Equal air entry bilateral, no wheezing/rales/rhonchi Abdomen: Soft and nontender. Bowel sounds are present, no mass palpable, no CVA tenderness Skin: Skin warm and dry. Normal skin color. Normal skin turgor. Extremities: 3+ lower extremity edema. No calf tenderness Neuro: Oriented X 3. Course Course Course Narrative: RME- 58-year-old female past medical history significant for coronary artery disease, migraines, chronic anemia, gastric bypass, hypotension presents for evaluation of multiple complaints. She complains of leg swelling, right hip and low back pain. She also complains of neck pain. Plan for labs, EKG. Medications Administered Discontinued Medications Generic Name Dose Route Start Last Admin Trade Name Freq PRN Reason Stop Dose Admin Hydrochlorothiazide 50 mg 07/13/23 20:45 07/13/23 20:34 Hydrochlorothiazide 25 Mg Tablet PO 07/13/23 20:46 50 mg ONCE ONE Administration Protocol Oxycodone HCl 5 mg 07/13/23 21:10 07/13/23 21:19 Oxycodone Hcl Immed Release 5 Mg Tablet PO 07/13/23 21:11 5 mg ONCE ONE Administration Medical Decision Making Differential Diagnosis Differential Diagnoses: The differential diagnosis associated with the presentation includes Lab Data 07/13/23 14:35 07/13/23 14:35 Labs: Lab Results 07/13/23 07/13/23 Range/Units 14:35 20:44 WBC 6.9 (4.8-10.8) X10*3/uL RBC 3.02 L (4.20-5.50) X10*6/uL Hgb 8.4 L (12.0-16.0) g/dl Hct 28.1 L (37.0-47.0) % MCV 93.0 (80.0-98.0) fL MCH 27.8 (27.0-33.0) pg MCHC 29.9 L (31.0-35.0) g/dl RDW 15.3 (11.0-16.0) % Plt Count 151 L D (160-400) X10*3/uL MPV 11.7 (9.4-12.3) fL Immature Gran % (Auto) 0.3 (0.0-0.4) % Neut % (Auto) 67.0 (45-73) % Lymph % (Auto) 25.0 (20-40) % [place] % (Auto) 6.2 (2-11) % Eos % (Auto) 1.2 (0-4) % Baso % (Auto) 0.3 (0-2) % Lymph # (Auto) 1.7 (1.2-4.9) X10*3/uL [place] # (Auto) 0.4 (0.1-1.2) X10*3/uL Eos # (Auto) 0.1 (0.0-0.4) X10*3/uL Baso # (Auto) 0.0 (0.0-0.2) X10*3/uL Abs Immat Gran (auto) 0.02 (0.00-0.03) X10*3/uL Absolute Neuts (auto) 4.7 (2.0-8.3) x10*3/uL Absolute Nucleated RBC 0.000 (0.0-0.012) X10*3/uL Nucleated RBC % (auto) 0.0 (0.0-0.2) /100WBC D-Dimer High Sensitivty 162 NG/ML Sodium 141 (135-145) mmol/L Potassium 3.6 (3.3-5.1) mmol/L Chloride 111 H (96-108) mmol/L Carbon Dioxide 23 (22-29) mmol/L Anion Gap 11 L (12-20) BUN 10 (9-16) mg/dL Creatinine 0.64 (0.5-1.4) mg/dL Estim Creat Clear Calc 91.8 Estimated GFR > 60 Random Glucose 98 (60-115) mg/dL Calcium 7.9 L D (8.4-10.2) mg/dL Iron 27 L (30-160) mcg/dL TIBC 179 L (228-428) mcg/dL % Saturation 15 (15-50) % Unsat Iron Binding 152 ug/dL Total Bilirubin 0.1 (0.0-1.0) mg/dL AST 19 (5-31) U/L ALT 19 (0-31) U/L Alkaline Phosphatase 117 (39-117) U/L B-Natriuretic Peptide 170 H (<100) pg/mL Total Protein 6.0 L (6.5-8.0) g/dL Albumin 2.9 L (3.5-5.0) g/dL Lipase 8 (8-78) U/L Independent Interpretation I performed an independent interpretation of an: EKG Discharge Plan Discharge Clinical Impression: Leg edema, Anemia in chronic illness Patient Disposition: Home, Self-Care Instructions: Leg Edema (ED), Anemia (ED) Additional Instructions: Eat well and have high protein shakes as advised Keep your legs elevated Water pill daily as needed for severe leg swelling Prescriptions: New hydrochlorothiazide 50 mg tablet 50 mg PO QAM Qty: 90 0RF No Action Latuda 120 mg tablet 120 mg PO DAILY Rx Instructions: must administer with food (at least 350 calories) topiramate 100 mg tablet 100 mg PO BEDTIME Qty: 28 4RF riboflavin (vitamin B2) [Vitamin B-2] 100 mg tablet 200 mg PO BID 28 Days Qty: 112 11RF midodrine 5 mg tablet 10 mg PO TID nortriptyline 25 mg Capsule 25 mg PO BID quetiapine 25 mg Tablet 25 mg PO BEDTIME Qty: 30 0RF fludrocortisone 0.1 mg Tablet 0.1 mg PO DAILY Qty: 30 0RF valacyclovir 1 gram tablet 1,000 mg PO DAILY cholecalciferol (vitamin D3) 25 mcg (1,000 unit) tablet 25 mcg PO DAILY riboflavin (vitamin B2) 100 mg tablet 200 mg PO BEDTIME magnesium oxide 400 mg (241.3 mg magnesium) tablet 400 mg PO DAILY (DME) blood pressure monitor Kit See Rx Instructions .Route Qty: 1 0RF Rx Instructions: Check BP bid and prn lightheadedness ascorbic acid (vitamin C) [Vitamin C] 500 mg tablet 500 mg PO DAILY polyethylene glycol 3350 17 gram/dose powder 17 g PO DAILY acetaminophen 325 mg capsule 650 mg PO Q6H PRN (Reason: Pain) dicyclomine 10 mg capsule 10 mg PO DAILY Fleet Enema 19-7 gram/118 mL enema 197 ml ND DAILY PRN (Reason: Constipation) levetiracetam 500 mg tablet 500 mg PO BID pantoprazole [address] for susp in packet 40 mg PO DAILY cetirizine [All Day Allergy (cetirizine)] 10 mg tablet 10 mg PO DAILY PRN (Reason: Allergy Symptoms) ferrous sulfate 325 mg (65 mg iron) tablet 325 mg PO BID
[2023-07-13 14:43] LABS: MANUAL DIFF FLAG NO
[2023-07-13 14:47] LABS: Basophils Percent Auto 0.3 % (0-2); Eosinophils Absolute Auto 0.1 X10*3/uL (0.0-0.4); Eosinophils Percent Auto 1.2 % (0-4); Hematocrit 28.1 % (37.0-47.0); Hemoglobin 8.4 g/dl (12.0-16.0); Imm Gran Abs Auto 0.02 X10*3/uL (0.00-0.03); Imm Gran Pct Auto 0.3 % (0.0-0.4); Lymphocytes Absolute Auto 1.7 X10*3/uL (1.2-4.9); Mean Corpuscular HGB Conc 29.9 g/dl (31.0-35.0); Mean Corpuscular Hemoglobin 27.8 pg (27.0-33.0); Mean Platelet Volume 11.7 fL (9.4-12.3); Monocytes Absolute Auto 0.4 X10*3/uL (0.1-1.2); Monocytes Percent Auto 6.2 % (2-11); Neutrophils Absolute Auto 4.7 x10*3/uL (2.0-8.3); Platelet Count 151 X10*3/uL (160-400); Red Blood Count 3.02 X10*6/uL (4.20-5.50); Red Cell Distribution Width 15.3 % (11.0-16.0); White Blood Count 6.9 X10*3/uL (4.8-10.8)
[2023-07-13 15:00] LABS: Alanine Aminotransferase 19 U/L (0-31); Albumin Level 2.9 g/dL (3.5-5.0); Alkaline Phosphatase 117 U/L (39-117); Anion Gap 11 (12-20); Aspartate Amino Transferase 19 U/L (5-31); Bilirubin Total 0.1 mg/dL (0.0-1.0); Blood Urea Nitrogen 10 mg/dL (9-16); Calcium 7.9 mg/dL (8.4-10.2); Carbon Dioxide 23 mmol/L (22-29); Chloride 111 mmol/L (96-108); Creatinine Clr Calc Pharmacy 91.8; Estimated Glomerular Filt Rate > 60; Glucose Random 98 mg/dL (60-115); Lipase 8 U/L (8-78); Potassium 3.6 mmol/L (3.3-5.1); Sodium 141 mmol/L (135-145)
[2023-07-13 15:04] LABS: B Type Natriuretic Peptide 170 pg/mL (<100)
[2023-07-13 16:42] VITALS: BP 137/64; PULSE 80; RESP 18; TEMP 37; O2SAT 100
[2023-07-13 19:53] VITALS: BP 134/75; PULSE 84; RESP 20; O2SAT 100
--- NOTE | 2023-07-13 19:57 | PC.NURSE ---
pt brought into room 13 from - placed on electronic device monitor, vital signs updated and entered. pt reporting 1 week of bilat lower extremity swelling, redness and pain. sob x 2-3 days. denies chest pain. pt speaking clear full sentences in no apparent distress, call carlos within reach. pt waiting to be seen by ED provider.
[2023-07-13] MEDS: hydroCHLOROthiazide 25 MG TABLET 50 MG PO (20:34)
[2023-07-13 20:35] VITALS: BP 143/71
[2023-07-13 20:53] LABS: Iron 27 mcg/dL (30-160); Percent Iron Saturation 15 % (15-50); Total Iron Binding Capacity 179 mcg/dL (228-428); Unsaturated Iron Binding 152 ug/dL
[2023-07-13 21:01] LABS: D Dimer High Sensitivity 162 NG/ML
[2023-07-13] MEDS: oxyCODONE HCl Immed Release 5 MG TABLET PO (21:19)
== END 2023-07-13 21:55 | disposition home or self-care (01) ==
PROVIDERS: Physician Assistant; Emergency Provider Internal Medicine; PCP Internal Medicine
DX: R60.0 Localized edema (principal); D63.8 Anemia in other chronic diseases classified elsewhere; R94.31 Abnormal electrocardiogram [ECG] [EKG]; M54.2 Cervicalgia; Z98.84 Bariatric surgery status; Z79.899 Other long term (current) drug therapy; Z87.891 Personal history of nicotine dependence
CPT/HCPCS: 36415; 80053; 83540; 83690; 83880; 85025; 85379; 93005; 99283; 99284

== ENCOUNTER → 2023-07-13 11:34 | Outpatient (BNV) | payer MEDICAID, SELFPAY | PROVIDERS: PCP Internal Medicine; Visit Provider Internal Medicine Cardiovascular Disease | DX: R94.31 Abnormal electrocardiogram [ECG] [EKG] (principal); R53.1 Weakness | CPT/HCPCS: 93010 ==

== ENCOUNTER 2023-07-19 12:50 | Outpatient (AMB) | payer MEDICAID, SELFPAY ==
[2023-07-19 13:02] VITALS: BP 143/70; PULSE 83; BMI 24.3
--- NOTE | 2023-07-19 13:02 | A.OFFVIS_ITS ---
Intake Vital Signs 07/19/23 13:02 Height 5 ft 6 in Weight 150 lb 5.684 oz BMI 24.3 BP 143/70 H Blood Pressure Location Rt brachial Position Sitting Pulse 83 Pulse Source Pulse Oximeter Intake Visit Reasons: s/p egd/colon kasia Intake Note: Pt presents to the office for s/p egd/colo. Pt states she is feeling well and denies any GI concerns at this time. Allergies baclofen Allergy (Intermediate, Verified 07/19/23 13:05) Swelling amoxicillin Allergy (Mild, Verified 07/19/23 13:05) yeast infection gabapentin Adverse Reaction (Mild, Verified 07/19/23 13:05) Swelling Meloxicam Allergy (Unknown, Uncoded 07/19/23 13:05) swelling HPI s/p egd/colon kasia HPI Details LAST VISIT Anemia Malnutrition Abdominal pain Intestinal malabsorption following gastrectomy Plan Patient denies any abdominal pain or discomfort and is feeling much better today. Moving her bowels well. Continue MiraLax. Continue pantoprazole for reflux. Patient will be sent for upper endoscopy as well as for colonoscopy. Patient denies any issues with anesthesia in the past. No history of sleep apnea. Not on any anticoagulation medication. Patient denies any chest pain or shortness of breath. We will book upper endoscopy and colonoscopy. Patient will repeat blood work. Referral to Hematology sent for possible iron transfusions. Appointment was made for Wednesday. I will see patient after procedure, sooner on as needed basis. What to expect before during and after the procedure discussed with patient. The importance of clear liquid diet as well as good bowel prep discussed with patient. ? Thank you for allowing me to participate in her care Orders Orders Complete Blood Count no Diff Today K21.9 Referrals Hematology & Oncology Referral D64.9 Medications New bisacodyl (Dulcolax (bisacodyl)) take 4 tabs at noon the day before your colonoscopy 20 mg (4 x 5 mg) PO ONCE 1 day 4 tabs 0R F constipation Z12.11 polyethylene glycol 3350 (Miralax) As directed by gastroenterology department at [facility] 238 grams PO ONCE 238 grams 0RF Z12.11 COLONOSCOPY AND UPPER ENDOSCOPY Findings: Larynx: Normal Esophagus: GE junction at 35 cms. No esophagitis or Holloway's. Stomach: Zane en Y gastric bypass status with gastro-jejunal anastomosis at 45 cms. A long suture in place at the margin of the anastomotic site.. Attempts to cut and removed with sutire with an endoscopic scissors and hot snare were unsuccessful. Mild gastric erythema. Biopsies were obtained. Grade 2 flap valve on retroflexed examination of the cardia. Jejunum: Normal - biopsies were obtained to check for celiac sprue Intervention: Biopsies as noted above Procedure Difficulty: Colon was long and tortuous and there was some spasm and loop formation Findings: Terminal Ileum: Not evaluated Cecum: Normal Ascending Colon: Normal Transverse Colon: Normal Descending Colon: Normal Sigmoid Colon: Moderate diverticulosis Rectum: Normal Ano-rectum: Small internal hemorrhoids Colon preparation: Good in the right colon after copious irrigation and Fair to poor in the left colon due to undigested vegetable matter which could not be suctioned Impression and Post Procedure Diagnosis: Endoscopy Findings: STOMACH: Zane en Y gastric bypass status with gastro-jejunal anastomosis at 45 cms. A long suture in place at the margin of the anastomotic site.. Attempts to cut and removed with sutire with an endoscopic scissors and hot snare were unsuccessful. Mild gastric erythema. Biopsies were obtained. JEJUNUM: Normal - biopsies were obtained to check for celiac sprue Colonoscopy Findings: No polyps were detected Moderate diverticulosis seen in the sigmoid colon Small hemorrhoids on retroflexed exam. Plan: Repeat Colonoscopy in 1-2 years due to suboptimal prep (Biscodyl 2 tabs daily for 5 days before colonoscopy and a two day prep) An adult colonoscope for future colonoscopies. Above findings were reviewed with the patient and diverticulosis handout was given in the discharge area BIOPSIES SHOWED: A. Small bowel, biopsy: Small bowel mucosa with preserved villi and no specific change; no evidence of celiac disease. B. Stomach, biopsy: Gastric body mucosa with reactive changes and minimal chronic inactive gastritis; negative for H pylori, intestinal metaplasia and dysplasia TODAY'S VISIT Patient is here today for follow-up and to discuss upper endoscopy and colonoscopy. Patient reports to be doing well after the procedure. Patient denies any ill effects from the prep, anesthesia or procedure itself. Patient denies any melena, hematochezia, unintentional weight loss or ribbon like stools. Patient denies any dyspepsia, dysphagia or odynophagia. Patient states that she is taking pantoprazole in the morning in her symptoms of acid reflux ar e suppressed. Patient is having trouble moving her bowels after the procedure. Patient states that she has to push in order to have a bowel movement. Patient used to take MiraLax. No longer taking anything to help her move her bowels. Patient is also taking iron supplements which is contributing to her constipation. Patient denies any abdominal pain or discomfort. Denies any other GI concerning symptoms. Colonoscopy results and biopsy results discussed with patient. Patient had suboptimal prep and recommendation was made for colonoscopy to be repeated in 1-2 years [facility] Medical History (Updated 07/19/23 @ 13:[address] [facility]) Intestinal malabsorption following gastrectomy Major depressive disorder, recurrent Internal hernia Excess skin of upper extremity Lipoma History of lipoma Sleep apnea with use of continuous positive airway pressure (CPAP) Hypercholesterolemia Type 2 diabetes mellitus Anemia Lymphedema Migraines Anxiety Back pain Arthritis Carpal tunnel syndrome Body mass index (BMI) of 32.0-32.9 in adult Obesity (BMI 30-39.9) H/O nephrolithotomy with removal of calculi Surgical History History of Zane-en-Y gastric bypass H/O hernia repair History of gastric surgery Hx of colonoscopy Hx of lumpectomy H/O cervical discectomy S/P carpal tunnel release Hx of section S/P knee replacement History of back surgery Family History Father No problems noted. Mother Arthritis Brother No problems noted. Brother No problems noted. Sister No problems noted. Sister No problems noted. Sister No problems noted. Sister No problems noted. Son No problems noted. Daughter No problems noted. Social History Household Members: Other Housing: [facility] Alcohol intake: former Patient Tobacco Use Status: Former Tobacco user Quit Date: 2017 Advance Directives Date on File: 07/04/21 service: No Current occupational status: disabled Review of Systems Const Denies weight gain and Denies weight loss ENT Reports no additional complaints, Denies dysphagia and Denies odynophagia Card Reports no additional complaints Resp Reports no additional complaints GI Denies abdominal pain, Denies belching, Denies melena, Denies bloating, Denies change in bowel habits, Denies dysphagia, Denies excessive flatus, Denies dyspepsia, Denies heartburn, Denies diarrhea, Denies loose stools, Denies nausea, Denies odynophagia and Denies vomiting Reports no additional complaints Musc Reports no additional complaints Neuro Reports no additional complaints Psych Reports no additional complaints Endo Reports no additional complaints Physical Exam Vital Signs: Last Vital Signs Pulse 83 07/19/23 13:02 BP 143/70 H 07/19/23 13:02 BMI result Body Mass Index 24.3 Const Other: Ambulating using a wheeled walker General: healthy appearing, no acute distress and well developed Nutritional Appearance: well nourished Orientation/consciousness: patient oriented x3 Resp Effort & Inspection: normal respiratory effort, able to speak in complete sentences, no tracheal deviation and symmetric chest movement Auscultation: clear to auscultation bilaterally Cardio Rate: regular rate GI Inspection: Yes normal to inspection and No distended Palpation (GI): Soft to palpation, not firm, nontender and No hepatosplenomegaly present Auscultation: normal bowel sounds General: Yes no CVA tenderness Back/Spine/Pelvis Back: no CVA tenderness Skin General skin exam: elasticity normal, turgor normal and dry skin Neuro General: patient oriented x3 Psych Appearance: grossly normal Mental Status: mental status grossly normal Assessment & Plan Assessment & Plan (1) Constipation: Code(s): K59.00 - Constipation, unspecified Qualifiers: Constipation type: slow transit constipation Qualified Code(s): K59.01 - Slow transit constipation (2) GERD (gastroesophageal reflux disease): Code(s): K21.9 - Gastro-esophageal reflux disease without esophagitis Qualifiers: Esophagitis presence: without esophagitis Qualified Code(s): K21.9 - Gastro-esophageal reflux disease without esophagitis (3) Status post colonoscopy: Code(s): Z98.890 - Other specified postprocedural states Plan Patient was encouraged to increase fluid intake and activity to promote better bowel motility. Patient can start taking MiraLax again. She will take 2 stool softeners in the evening. Continue pantoprazole daily. Avoid dietary triggers and late night snacking. Staying upright for minimum 3 hours after meals discussed with patient. Colonoscopy will be repeated in on 2 to years, sooner if clinically indicated. I will see her in 6 months, sooner on as needed basis. Patient is agreeable to this plan and verbalizes understanding of instructions. She was given the opportunity to ask questions and all questions answered. Medications: New polyethylene glycol 3350 17 grams PO DAILY 510 grams 2RF docusate sodium 200 mg (2 x 100 mg) PO BEDTIME 180 caps 3RF K59.00 - Constipation, unspecified Coding Level of Care Code Est Pt Level 4 (72245) Diagnoses Slow transit constipation K59.01 Constipation type: slow transit constipation Gastroesophageal reflux disease without esophagitis K21.9 Esophagitis presence: without esophagitis Status post colonoscopy Z98.890 Time Spent (min) 35 Comment 20 minutes spent with patient and additional 15 minutes spent reviewing her records
== END 2023-07-19 13:34 | disposition home or self-care (01) ==
PROVIDERS: PCP Internal Medicine; Visit Provider Nurse Practitioner Family
DX: K59.01 Slow transit constipation (principal); K21.9 Gastro-esophageal reflux disease without esophagitis; Z98.890 Other specified postprocedural states
CPT/HCPCS: 99214

== ENCOUNTER → 2023-07-19 12:50 | Outpatient (BNVA) | payer MEDICAID, SELFPAY | PROVIDERS: PCP Internal Medicine; Visit Provider Nurse Practitioner Family | DX: K57.30 Diverticulosis of large intestine without perforation or abscess without bleeding (principal); K59.01 Slow transit constipation; K21.9 Gastro-esophageal reflux disease without esophagitis; Z79.899 Other long term (current) drug therapy; Z98.890 Other specified postprocedural states | CPT/HCPCS: 99212 ==

== ENCOUNTER 2023-07-27 11:29 | Outpatient (AMB) | payer MEDICAID, SELFPAY ==
--- NOTE | 2023-07-27 11:23 | MHC.AMNUTRGE ---
Intake Intake Visit Reasons: (TV) PO LSG 04/05/19 Allergies baclofen Allergy (Intermediate, Verified 07/19/23 13:05) Swelling amoxicillin Allergy (Mild, Verified 07/19/23 13:05) yeast infection gabapentin Adverse Reaction (Mild, Verified 07/19/23 13:05) Swelling Meloxicam Allergy (Unknown, Uncoded 07/19/23 13:05) swelling HPI Nutrition Presentation Details ?PO LSG 04/05/19 weight last year (07/06/2022) 158# current weight 150# Hospitalized in the fall with malnutrition weight around 105# and BMI 18.7 Diet Assmnt Details In the fall, pt was hospitalized with Malnutrition. she is now doing much better and is weight restored. Met with Citlaly ARGUELLES a few weeks ago. Plan for skin removal surgery and todays consult to assess nutritional status prior to major operation. 8am protien shake - Boost with 10g protein - she acknowledges this is not enough protein in a single shake. is drinking 3-4 of them, weight seems to be stable. 10am eggs, oatmeal 2pm soup 7pm dinner rice beans with chicken or fish Hydration: 64oz water Vitamins: B, D multivitamin Celebrate capsule Monitoring/Goals Nutrition problem monitoring total energy intake, level of knowledge/skill, total PRO intake, total CHO intake and weight Learning/Education Readiness to learn good Stages of change action Most Recent Diabetes Results: Creatinine 0.64 mg/dL (0.5-1.4) 07/13/23 Blood Urea Nitrogen 10 mg/dL (9-16) 07/13/23 Sodium 141 mmol/L (135-145) 07/13/23 Potassium 3.6 mmol/L (3.3-5.1) 07/13/23 Chloride 111 mmol/L (96-108) H 07/13/23 Carbon Dioxide 23 mmol/L (22-29) 07/13/23 Calcium 7.9 mg/dL (8.4-10.2) L 07/13/23 AST 19 U/L (5-31) 07/13/23 ALT 19 U/L (0-31) 07/13/23 Total Protein 6.0 g/dL (6.5-8.0) L 07/13/23 Albumin 2.9 g/dL (3.5-5.0) L 07/13/23 [facility] Medical History (Updated 07/19/23 @ 13:31 by Virginia Sharpe [facility]) Intestinal malabsorption following gastrectomy Major depressive disorder, recurrent Internal hernia Excess skin of upper extremity Lipoma History of lipoma Sleep apnea with use of continuous positive airway pressure (CPAP) Hypercholesterolemia Type 2 diabetes mellitus Anemia Lymphedema Migraines Anxiety Back pain Arthritis Carpal tunnel syndrome Body mass index (BMI) of 32.0-32.9 in adult Obesity (BMI 30-39.9) H/O nephrolithotomy with removal of calculi Surgical History History of Zane-en-Y gastric bypass H/O hernia repair History of gastric surgery Hx of colonoscopy Hx of lumpectomy H/O cervical discectomy S/P carpal tunnel release Hx of section S/P knee replacement History of back surgery Family History Father No problems noted. Mother Arthritis Brother No problems noted. Brother No problems noted. Sister No problems noted. Sister No problems noted. Sister No problems noted. Sister No problems noted. Son No problems noted. Daughter No problems noted. Social History Household Members: Other Housing: [employer] Alcohol intake: former Patient Tobacco Use Status: Former Tobacco user Quit Date: 2017 Advance Directives Date on File: 07/04/21 service: No Current occupational status: disabled Assessment & Plan Assessment & Plan (1) History of sleeve gastrectomy: Code(s): Z90.3 - Acquired absence of stomach [part of] Plan recommend 3 protein shakes and have 2-3 plus 2-3 meals to include healthy fats and carbs and protein. recommend around 100g protein and adequate calories. Ideally she could do 2 Boost shakes and 1 Ensure max shake (or any 30g protein shake) (50g protein from shakes) and obtain another 50g protein from food. Telehealth Telehealth Location of provider rendering services: other (home address, [facility] ) Location of patient: address on file Patient Identification confirmed using: Name, : Yes Telehealth method: voice only Patient verbally consented to treatment: Yes Patient verbally consented to billing insurance company: Yes Patient informed of any privacy concerns related to visit: Yes Minutes spent on Phone/Video with Pt.: 30 Coding Level of Care Code Nutr Indiv Subseq ([id number]) Diagnoses History of sleeve gastrectomy Z90.3 Time Spent (min) 30
== END 2023-07-27 11:48 | disposition home or self-care (01) ==
PROVIDERS: PCP Internal Medicine; Visit Provider Dietitian, Registered
DX: Z90.3 Acquired absence of stomach [part of] (principal)

== ENCOUNTER → 2023-07-27 11:29 | Outpatient (BNVA) | payer MEDICAID, SELFPAY | PROVIDERS: PCP Internal Medicine; Visit Provider Dietitian, Registered | DX: Z90.3 Acquired absence of stomach [part of] (principal) | CPT/HCPCS: 97803 ==

== ENCOUNTER 2023-08-06 11:42 | Outpatient (REF) | payer MEDICAID, SELFPAY ==
[2023-08-06 12:39] LABS: MANUAL DIFF FLAG NO
[2023-08-06 12:45] LABS: Basophils Percent Auto 0.3 % (0-2); Eosinophils Absolute Auto 0.1 X10*3/uL (0.0-0.4); Eosinophils Percent Auto 1.2 % (0-4); Hematocrit 31.3 % (37.0-47.0); Hemoglobin 9.7 g/dl (12.0-16.0); Imm Gran Abs Auto 0.03 X10*3/uL (0.00-0.03); Imm Gran Pct Auto 0.3 % (0.0-0.4); Lymphocytes Percent Auto 18.5 % (20-40); Mean Corpuscular Hemoglobin 27.4 pg (27.0-33.0); Mean Corpuscular Volume 88.4 fL (80.0-98.0); Mean Platelet Volume 9.6 fL (9.4-12.3); Monocytes Absolute Auto 0.6 X10*3/uL (0.1-1.2); Monocytes Percent Auto 5.2 % (2-11); Neutrophils Absolute Auto 8.2 x10*3/uL (2.0-8.3); Neutrophils Percent Auto 74.5 % (45-73); Platelet Count 158 X10*3/uL (160-400); Red Blood Count 3.54 X10*6/uL (4.20-5.50); Red Cell Distribution Width 15.6 % (11.0-16.0); White Blood Count 10.9 X10*3/uL (4.8-10.8)
[2023-08-06 12:52] LABS: INTERNATIONAL NORM RATIO 0.9 (0.9-1.1); Prothrombin Time 10.8 SEC (11.1-13.3)
[2023-08-06 12:55] LABS: Estimated Average Glucose 68 mg/dL; Partial Thromboplastin Time 33.8 SEC (26.0-36.8)
[2023-08-06 13:15] LABS: C Reactive Protein < 0.10 mg/dL (< or = 0.50); Cholesterol 189 mg/dL (<200); HDL Cholesterol 95 mg/dL (>40); Iron 40 mcg/dL (30-160); LDL Cholesterol Calculated 77 mg/dL (<100); Percent Iron Saturation 16 % (15-50); Total Iron Binding Capacity 248 mcg/dL (228-428); Triglycerides 87 mg/dL (<150); Unsaturated Iron Binding 208 ug/dL
[2023-08-06 13:32] LABS: TSH reflex Free T4 1.23 uIU/mL (0.32-4.0); Vitamin D 25-OH Total 12.1 ng/mL (>30)
[2023-08-06 13:41] LABS: Vitamin B12 614 pg/mL (200-900)
[2023-08-10 00:58] LABS: Zinc 58 mcg/dL (60-130)
[2023-08-11 01:19] LABS: Vitamin A 39 mcg/dL (38-98)
[2023-08-11 15:38] LABS: Vitamin B1 54 nmol/L (8-30)
== END 2023-08-06 11:43 | disposition home or self-care (01) ==
LOC: HO.LAB 11:42
PROVIDERS: Absent Provider Physician Assistant; PCP Internal Medicine; Visit Provider Surgery
DX: Z01.818 Encounter for other preprocedural examination (principal); E65 Localized adiposity; Z98.84 Bariatric surgery status
CPT/HCPCS: 36415; 80061; 82306; 82607; 83036; 83540; 84425; 84443; 84590; 84630; 85025; 85610; 85730; 86140

== ENCOUNTER 2023-08-09 08:21 | Outpatient (AMB) | payer MEDICAID, SELFPAY ==
--- NOTE | 2023-08-07 14:20 | A.OFFVIS_ITS ---
Intake VS Expanded 08/09/23 13:30 Height 5 ft 6 in Weight 149 lb 4 oz BMI 24.1 Intake Visit Reasons: TV Pre Op Pannic/Brachio 08/11/23 Allergies amoxicillin Allergy (Severe, Verified 08/06/23 12:02) yeast infection, itching gabapentin Allergy (Severe, Verified 08/06/23 12:02) Swelling baclofen Allergy (Intermediate, Verified 08/06/23 12:02) Swelling, sob Meloxicam Allergy (Severe, Uncoded 08/06/23 12:02) swelling HPI TV Pre Op Pannic/Brachio 08/11/23 HPI Details Start time: 12.30pm, End time: 1pm ?I spent 25 minutes speaking with the patient on the phone plus an additional 5 minutes reviewing and updating records for a total of 30 minutes HPI Comments History of Present Illness Details Has achieved a normal BMI since her gastric bypass As a result she has developed a significant amount of loose skin at the upper arms and at the lower abdomen Is doing 4 Boost protein shakes per day and one meal PFS Medical History (Updated 08/05/23 @ 23:11 by Rui Victor MD) Hx of myocardial infarction (~11/2022) Hx of migraines CKD (chronic kidney disease) History of blood transfusion (~04/2023) Weakness of both legs History of seizures Major depressive disorder, recurrent Internal hernia Excess skin of upper extremity Lipoma History of lipoma Sleep apnea with use of continuous positive airway pressure (CPAP) Hypercholesterolemia Type 2 diabetes mellitus Anemia Lymphedema Migraines Anxiety Back pain Arthritis Carpal tunnel syndrome Body mass index (BMI) of 32.0-32.9 in adult Obesity (BMI 30-39.9) Intestinal malabsorption following gastrectomy H/O nephrolithotomy with removal of calculi Surgical History (Updated 08/05/23 @ 11:18 by Nhung Villatoro RN) History of dental surgery (~06/2023) H/O hernia repair History of gastric surgery Hx of colonoscopy Hx of lumpectomy H/O cervical discectomy History of Zane-en-Y gastric bypass S/P carpal tunnel release Hx of section S/P knee replacement History of back surgery Family History Father No problems noted. Mother Arthritis Brother No problems noted. Brother No problems noted. Sister No problems noted. Sister No problems noted. Sister No problems noted. Sister No problems noted. Son No problems noted. Daughter No problems noted. Social History Household Members: Other Household Members Other:: son Housing: Intermediate Are you a primary animal caretaker supervisor to a significant other at home: No Do you presently have visiting nurse or other home services: Yes ([employer] 4 hrs/day) Alcohol intake: former Patient Tobacco Use Status: Former Tobacco user Quit Date: 2018 Tobacco use type: Cigarette Advance Directives Date on File: 07/04/21 service: No Current occupational status: disabled Assessment & Plan Assessment & Plan (1) Excess skin of abdomen: Code(s): L98.7 - Excessive and redundant skin and subcutaneous tissue Plan: 1. Plan for bilateral brachioplasty and panniculectomy. Risks of infection, bleeding, asymmetry, wound dehiscence and blood clots were discussed with the patient. 2. You will have a drain the abdomen that may stay a few weeks before it may be removed 3. You will need to be doing sponge baths the first 1-2 weeks. No showers. You need to have help at home to get you up and limit your activities as much as possible for at least the 4-6 weeks after surgery 4. We will arrange for a visiting nurse to come at home to help you with dressing changes and send me pictures of the procedures. We will send at your home supplies for the dressing changes. 5. Continue same nutritional plan with 4 Boost protein shakes per day and 2 small meals. This will improve weight loss and healing after surgery. 6. Continue all vitamins and medications 7. Do blood work not fasting tomorrow and orange picker the antibiotic prescription from your pharmacy 8. Risks and complications were discussed the possibility of bleeding that may require transfusion, loss of the umbilicus, wound dehiscence or infection, dog ears , flap asymmetry. We also discussed the importance of strict avoidance of weight lifting. 9. Avoid aspirin, motrin, ibuprofen, Aleve, Advil, Naproxyn. Only Tylenol is OK Medications: New cholecalciferol (vitamin D3) 125 mcg PO DAILY 90 caps 0RF Telehealth Telehealth Location of provider rendering services: practice address Location of patient: address on file Patient Identification confirmed using: Name, : Yes Telehealth method: voice only Patient verbally consented to treatment: Yes Patient verbally consented to billing insurance company: Yes Patient informed of any privacy concerns related to visit: Yes Minutes spent on Phone/Video with Pt.: 30 Coding Level of Care Code Tele Est Pt Level 4 (67147) Diagnoses Excess skin of abdomen L98.7 Time Spent (min) 30
[2023-08-09 13:30] VITALS: BMI 24.1
== END 2023-08-09 13:31 | disposition home or self-care (01) ==
LOC: HO.HBS 08:21
PROVIDERS: PCP Internal Medicine; Visit Provider Surgery
DX: L98.7 Excessive and redundant skin and subcutaneous tissue (principal)
CPT/HCPCS: 99214

== ENCOUNTER → 2023-08-09 08:21 | Outpatient (BNVA) | payer MEDICAID, SELFPAY | PROVIDERS: PCP Internal Medicine; Visit Provider Surgery ==

== ENCOUNTER 2023-08-11 06:01 | Day surgery (SDC) | payer MEDICAID, SELFPAY ==
[2023-08-05 11:21] VITALS: BMI 23.1
--- NOTE | 2023-08-10 10:23 | P.CONAN_ITS ---
Documented by User: Johanna Dalton NP 08/10/23 11:55 HPI - Anesthesia Eval Consult details Narrative: 58yo F for Panniculectomy,possible abdominal plasty,possible vental hernia Repair with or without mesh, Bilateral Brachioplasty s/p EGD, [place] 06/2023 with MAC s/p gastric bypass 2018 Cardiac cleared at low to moderate. Follows [facility] for htn, HFpEF Follows [facility] heme for Normochromic normocytic anemia. Hospital admit 03/2023 for Hgb 6.8, required blood transfusion PMFSH Active Problems Active Problems: All Active Problems (Updated 08/05/23 @ 11:18 by Nhung Villatoro RN) Constipation (Acute) Pre-op evaluation (Acute) Normochromic normocytic anemia (Acute) Facial pain (Acute) IIH (idiopathic intracranial hypertension) (Acute) TRUNG (obstructive sleep apnea) (Acute) Chronic migraine without aura (Acute) Hypotension (Acute) Excess skin of abdomen (Acute) Overweight (Acute) Malnutrition (Acute) Hypoalbuminemia (Acute) Partial small bowel obstruction (Acute) Abdominal pain (Acute) Vitamin D deficiency (Acute) History of Zane-en-Y gastric bypass (Acute) Past Medical History Medical History Hx of myocardial infarction (~11/2022) Hx of migraines CKD (chronic kidney disease) History of blood transfusion (~04/2023) Weakness of both legs History of seizures Major depressive disorder, recurrent Internal hernia Excess skin of upper extremity Lipoma History of lipoma Sleep apnea with use of continuous positive airway pressure (CPAP) Hypercholesterolemia Type 2 diabetes mellitus Anemia Lymphedema Migraines Anxiety Back pain Arthritis Carpal tunnel syndrome Body mass index (BMI) of 32.0-32.9 in adult Obesity (BMI 30-39.9) Intestinal malabsorption following gastrectomy H/O nephrolithotomy with removal of calculi Family History Family History Father No problems noted. Mother Arthritis Brother No problems noted. Brother No problems noted. Sister No problems noted. Sister No problems noted. Sister No problems noted. Sister No problems noted. Son No problems noted. Daughter No problems noted. Family history of problems with anesthesia: No Surgical History Surgical History History of dental surgery (~06/2023) H/O hernia repair History of gastric surgery Hx of colonoscopy Hx of lumpectomy H/O cervical discectomy History of Zane-en-Y gastric bypass S/P carpal tunnel release Hx of section S/P knee replacement History of back surgery History of Problems with Anesthesia: No Social History Social History Household Members: Other Household Members Other:: son Housing: [facility] Are you a primary career guidance technician to a significant other at home: No Do you presently have visiting nurse or other home services: Yes (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 If so, by whom?: No Are you DNR?: No Advance Directives: No Advance Directives Information Provided: Yes Advance Directives on File: Yes Advance Directives Date on File: 07/04/21 service: No Current occupational status: disabled Meds Allergies Allergy/AdvReac Type Severity Reaction Status Date / Time amoxicillin Allergy Severe yeast Verified 08/06/23 12:02 infection, itching gabapentin Allergy Severe Swelling Verified 08/06/23 12:02 baclofen Allergy Intermediate Swelling, Verified 08/06/23 12:02 sob Meloxicam Allergy Severe swelling Uncoded 08/06/23 12:02 Home Medications Medication Instructions Recorded Confirmed Last Taken Type magnesium oxide 400 mg (241.3 mg 400 mg PO DAILY 06/03/22 08/05/23 Unknown History magnesium) tablet riboflavin (vitamin B2) 100 mg 200 mg PO BEDTIME 06/03/22 08/05/23 Unknown History tablet valacyclovir 1 gram tablet 1,000 mg PO DAILY 06/03/22 08/05/23 Unknown History ascorbic acid (vitamin C) 500 mg 500 mg PO DAILY 08/07/22 08/05/23 Unknown History tablet (Vitamin C) acetaminophen 325 mg capsule 650 mg PO Q6H PRN Pain 12/28/22 08/05/23 Unknown History levetiracetam 500 mg tablet 500 mg PO BID 12/28/22 08/05/23 Unknown History pantoprazole 40 mg granules 40 mg PO DAILY 12/28/22 08/05/23 Unknown History delayed-release for susp in packet sodium phosphates 19 gram-7 197 ml UT DAILY PRN Constipation 12/28/22 08/05/23 Unknown History gram/118 mL enema (Fleet Enema) midodrine 5 mg tablet 10 mg PO TID 04/12/23 08/05/23 Unknown History nortriptyline 25 mg capsule 25 mg PO BID 04/12/23 08/05/23 Unknown History cetirizine 10 mg tablet (All Day 10 mg PO DAILY PRN Allergy Symptoms 05/21/23 08/05/23 Unknown History Allergy (cetirizine)) ferrous sulfate 325 mg (65 mg 325 mg PO BID 05/21/23 08/05/23 Unknown History iron) tablet Celebrex 08/05/23 Unknown History multivitamin 1 tab PO QAM 08/05/23 08/05/23 Unknown History Exam Height,Weight and Vital Signs: Height 5 ft 6 in Weight 64.864 kg Pertinent Lab Results Pertinent Lab Results: Laboratory Tests 08/06/23 12:31 Blood Type O Positive Antibody Screen POSITIVE Antibody Identification Anti-C Antigen Identification C Antigen - NEGATIVE SANIYA, Polyspecific NEGATIVE Positive SANIYA Work-up TNP Crossmatch See Detail Crossmatch (AHG) See Detail Laboratory Tests 07/29/23 07/29/23 08/06/23 13:32 13:32 12:35 WBC 10.9 H Hgb 9.7 L Hct 31.3 L Plt Count 158 L Sodium 140 Potassium 4.7 D Chloride 106 Carbon Dioxide 29 BUN 18 H Creatinine 0.72 Narrative Narrative: EKG 07/2023 (per office visit note) ST @ [address]/T wave abnormalities ECHO 07/2023 1. LV nml 2. LV wall thickness nml 3. LV systolic function is nml with EF 60-65% 4. LA moderately dilated 5. Mod aortic regurg 6. Mild mitral regurg 7. RV systolic pressure is 32mmHg 8. Trivial pericardial effusion present 9. No signficant change c/w 11/2022 Assessment and Plan Assessment Anesthesia Assessment: Chart Reviewed Final Anesthetic Review Family History of Problems with Anesthesia: No History of Problems with Anesthesia: No Documented by User: Jennifer Leong MD 08/11/23 10:23 [facility] Active Problems Active Problems: All Active Problems (Updated 08/11/23 @ 09:00 by Jennifer Leong MD) Constipation (Acute) Pre-op evaluation (Acute) Normochromic normocytic anemia (Acute) Facial pain (Acute) IIH (idiopathic intracranial hypertension) (Acute) TRUNG (obstructive sleep apnea) (Acute)- no longer using CPAP after bypass surgery though needed in 04/05 with respiratory failure Chronic migraine without aura (Acute) Hypotension (Acute) Excess skin of abdomen (Acute) Overweight (Acute) Malnutrition (Acute) Hypoalbuminemia (Acute) Partial small bowel obstruction (Acute) Abdominal pain (Acute) Vitamin D deficiency (Acute) History of Zane-en-Y gastric bypass (Acute) Implant in -situ for back pain. Paced in 2013 ?CVA- patient states after Mi in November 2022- had to be taught how to walk, talk, eat, use phone. No documentation in records Ambulates with walker- LE weakness Admitted through ER 04/05 for acute hypoxic respiratory failure and toxic metabolic encephalopathy and protein energy malnutrition Past Medical History Medical History Hx of myocardial infarction (~11/2022) Hx of migraines CKD (chronic kidney disease) History of blood transfusion (~04/2023) Weakness of both legs History of seizures Major depressive disorder, recurrent Internal hernia Excess skin of upper extremity Lipoma History of lipoma Sleep apnea with use of continuous positive airway pressure (CPAP) Hypercholesterolemia Type 2 diabetes mellitus Anemia Lymphedema Migraines Anxiety Back pain Arthritis Carpal tunnel syndrome Body mass index (BMI) of 32.0-32.9 in adult Obesity (BMI 30-39.9) Intestinal malabsorption following gastrectomy H/O nephrolithotomy with removal of calculi Family History Family History Father No problems noted. Mother Arthritis Brother No problems noted. Brother No problems noted. Sister No problems noted. Sister No problems noted. Sister No problems noted. Sister No problems noted. Son No problems noted. Daughter No problems noted. Family history of problems with anesthesia: No Surgical History Surgical History History of dental surgery (~06/2023) H/O hernia repair History of gastric surgery Hx of colonoscopy Hx of lumpectomy H/O cervical discectomy History of Zane-en-Y gastric bypass S/P carpal tunnel release Hx of section S/P knee replacement History of back surgery History of Problems with Anesthesia: No Social History Social History Household Members: Other Household Members Other:: son Housing: [employer] Are you a primary career guidance technician to a significant other at home: No Do you presently have visiting nurse or other home services: Yes (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 If so, by whom?: No Are you DNR?: No Advance Directives: No Advance Directives Information Provided: Yes Advance Directives on File: Yes Advance Directives Date on File: 07/04/21 service: No Current occupational status: disabled Meds Allergies Allergy/AdvReac Type Severity Reaction Status Date / Time amoxicillin Allergy Severe yeast Verified 08/06/23 12:02 infection, itching gabapentin Allergy Severe Swelling Verified 08/06/23 12:02 baclofen Allergy Intermediate Swelling, Verified 08/06/23 12:02 sob Meloxicam Allergy Severe swelling Uncoded 08/06/23 12:02 Home Medications Medication Instructions Recorded Confirmed Last Taken Type magnesium oxide 400 mg (241.3 mg 400 mg PO DAILY 06/03/22 08/05/23 Unknown History magnesium) tablet riboflavin (vitamin B2) 100 mg 200 mg PO BEDTIME 06/03/22 08/05/23 Unknown History tablet valacyclovir 1 gram tablet 1,000 mg PO DAILY 06/03/22 08/05/23 Unknown History ascorbic acid (vitamin C) 500 mg 500 mg PO DAILY 08/07/22 08/05/23 Unknown History tablet (Vitamin C) acetaminophen 325 mg capsule 650 mg PO Q6H PRN Pain 12/28/22 08/05/23 Unknown History levetiracetam 500 mg tablet 500 mg PO BID 12/28/22 08/05/23 Unknown History pantoprazole 40 mg granules 40 mg PO DAILY 12/28/22 08/05/23 Unknown History delayed-release for susp in packet sodium phosphates 19 gram-7 197 ml UT DAILY PRN Constipation 12/28/22 08/05/23 Unknown History gram/118 mL enema (Fleet Enema) midodrine 5 mg tablet 10 mg PO TID 04/12/23 08/05/23 Unknown History nortriptyline 25 mg capsule 25 mg PO BID 04/12/23 08/05/23 Unknown History cetirizine 10 mg tablet (All Day 10 mg PO DAILY PRN Allergy Symptoms 05/21/23 08/05/23 Unknown History Allergy (cetirizine)) ferrous sulfate 325 mg (65 mg 325 mg PO BID 05/21/23 08/05/23 Unknown History iron) tablet Celebrex 08/05/23 Unknown History multivitamin 1 tab PO QAM 08/05/23 08/05/23 Unknown History Exam Height,Weight and Vital Signs: Height 5 ft 6 in Weight 64.864 kg Vital Signs Temp Pulse Resp BP Pulse Ox O2 Del Method 08/11/23 07:42 98.9 F 87 16 124/64 100 Room Air Airway Mallampati Class: II TM Dist: >3cm Neck ROM: Full Loose/Missing/Broken Teeth: Yes (Missing many teeth back) Heart: RRR Lungs: CTAB Assessment and Plan Assessment Anesthesia Assessment: Anesthesia Plan Discussed and Chart Reviewed Final Anesthetic Review Family History of Problems with Anesthesia: No History of Problems with Anesthesia: No NPO: Yes ASA Class: III Final Preanesthetic Review: No Changes in Pt Med Stat, Meds/Allgs Chart Reviewed, Consent Obtained/Reviewed and Anes Risks/Benef Reviewed Patient Risk: Intermediate Procedure Risk: Intermediate Assessment/Block/Sedation in SS: Assess/Block/Sedation-SS Anesthetic Plan Anesthetic Plan: GA Disposition: Standard PACU
[2023-08-11] VITALS (15 sets, daily range): BP systolic 101–128; BP diastolic 50–71; PULSE 77–90; RESP 12–22; TEMP 36.6–37.2; O2SAT 97–100
[2023-08-11] MEDS: Lactated Ringers 1,000 ML 100 ML IVCONT (08:00)
--- NOTE | 2023-08-11 10:31 | P.HPSUR_ITS ---
Pre-Procedural Eval Section A - 24 Hr Update-Section A only Date of Service: 08/11/23 The patient is an INPATIENT: No The patient has been examined within 24 hours of the surgical procedure. The History & Physical has been completed within 30 days and I have reviewed it.: Yes Section B - Complete if H&P > 30 days Chief Complaint: Excessive and redundant skin and subcutaneous tiss Relevant Family History (Specify if Yes): No Relevant Social History: None Present Medications: None Medical History: No relevant PMH History of Previous Operations: Relevant previous surgery/procedure and date(s) (Lap gastric bypass) Allergies: Allergies Allergy/AdvReac Type Severity Reaction Status Date / Time amoxicillin Allergy Severe yeast Verified 08/06/23 12:02 infection, itching gabapentin Allergy Severe Swelling Verified 08/06/23 12:02 baclofen Allergy Intermediate Swelling, Verified 08/06/23 12:02 sob Meloxicam Allergy Severe swelling Uncoded 08/06/23 12:02 Review of Systems Sugical H&P ROS: Negative: Constitution, Cardiovascular, Respiratory, Neurological, Psychiatric, Hem-Onc, Allergic/Immunologic, Gastrointestinal, Genitourinary, Musculoskeletal, Integumentary, Endocrine and Eyes/Ea rs/Nose/Throat Exam Surgical H&P Exam: Normal: HEENT, Normal: Heart, Normal: Lungs, Normal: Extremities and Normal: Neurological and Significant Findings: Abdomen (Large pannus) and Significant Findings: Skin (Excessive skin laxity both arms) Plan Diagnosis/Plan: Unchanged I have reviewed the history and physical and performed a pertinent physical examination on my patient. No changes have occurred unless specified. Time Spent With Patient Time: Total time managing care of this patient today ____ minutes.
--- NOTE | 2023-08-11 10:49 | PM.OP ---
Brief Operative Note Date of Service: 08/11/23 Pre-op diagnosis: Excess skin Post-op diagnosis: same Procedure: PROCEDURE: Panniculectomy with umbilical transposition and bilateral subcutaneous fat flaps, bilateral brachioplasty INDICATION: This a 58 year old female who underwent laparoscopic gastric bypass on 04/05/2019. She had an excellent result achieving a BMI of 24.1 kg/m2 with a total weight loss of 197lbs, or 57% of her TBWL. As a result, she has developed panniculitis which has not resolved despite continuous use of clotrimazole ointment as well as skin irritation and intetrigo in both upper arms. On exam she has extreme skin laxity due to massive weight loss and age with the abdominal pannus completely hiding the genitalia and the upper arms 6 cm below the level of the triceps. Panniculectomy with bilateral brachioplasty was recommended. We discussed the two options for the panniculectomy of using a combined vertical and horizontal incisions or just a horizontal (bikini) incision. It was my recommendation to do only horizontal incision based on her body habitus and skin laxity. The patient agreed with this. Risks and complications were discussed with the patient including bleeding, infection, umbilical loss, flap necrosis, asymmetry, dehiscence, seroma, VTE. The patient understood the risks and was in agreement to proceed with surgery. PROCEDURE: The incisions were appropriately marked at the preop area with the patient standing and laying down. After induction of general anesthesia a Mora catheter and pneumatic compression devices were placed. The patient was prepped and draped in the usual sterile manner and the incisions were marked again and confirmed. In similar fashion both upper arms were also marked when the patient was standing. The upper arms were performed first. The skin was infiltrated with lidocaine and epinephrine. Skin was excised with the #15 blade. Cautery was used to separate the skin from subcutaneous tissues. Careful attention was paid to make sure that the plain of excision was superficial as close to the skin as possible. The right upper arm skin was 25 cm x 7 cm and the left 21 cm x 7 cm. Skin was closed in two layers using interrupted 3.0 Monocryl sutures for the dermis and 4.0 subcuticular Monocryl suture for the skin. The skin was infiltrated with lidocaine and epinephrine. The #10 blade scalpel was used for the large incisions and the #15 blade scalpel for the umbilicus. Cautery was used to divide the subcutaneous tissues until the fascia was identified. Then I used the cautery to separate the pannus from the fascia. The inferior incision was made initially and I mobilized the flap for a several centimeters cephalad to the umbilicus. The umbilicus was incised circumferentially and detached from the surrounding tissues all the way to the fascia while its stalk was preserved. With the patient in reflex position I confirmed that the skin flaps were appropriate and would allow for the tissues to come together with reasonable tension. At that point a horizontal incision was made 4 cm above the umbilicus. #10 blade was used for the skin, cautery for the dermis and for the remaining tissues. A subcutaneous fat flap was raised from the upper skin flap in order to fill the space under the skin and support the closure of the two flaps. In addition the inferior flap was mobilized caudally for a few centimeters to create a space for the subcutaneous fat flap as well as relieve tension from the closure. A circumferential incision was made at the area where the umbilicus would be re-implanted. The umbilicus was appropriately oriented and was delivered through the defect and was secured in place with a [place]. No bleeding was noted anywhere. One MARCELINA drain was placed from the left corner of the horizontal incision across the wound and was secured in place with a silk suture. A total of 7ml of Zynrelef was applied on top of the fascia and under the subcutaneous fat flaps. The subcutaneous fat flap was secured under the inferior flap with several interrupted 3.0 Monocryl sutures. The two flaps were brought together and were attached at the midline of the horizontal incision with a #3.0 Monocryl suture. At that point the umbilicus was properly oriented and was re-approximated to the skin with 8 interrupted 3.0 Monocryl sutures. In a similar fashion the skin flaps were re-approximated with multiple 3.0 Monocryl sutures. The skin was closed in all incisions and umbilicus with 4.0 Monocryl sutures. Steri-strips, xeroform gauzes and gauzes were used to cover the incisions. An abdominal binder was also placed. The was awaken and was transferred to the recover room in a stable condition. I was present and performed the entire procedure. Mr. Ochoa was the certified surgical tech/first assistant. Ed Victor MD, PhD, FACS Surgeon: Rui Victor MD Surgeon: Rui Victor MD Anesthesia: GETA, local and other (7ml Zynrelef) Was an Flyer Builder used for this Procedure?: No Flyer Builder: Citlaly Boswell Estimated blood loss (mL): 10 IV fluids (mL): 2,300 Urine output (mL): 1,500 Pathology: other (1) abdominal pannus, 2) left upper arm skin, 3) right upper arm skin) Condition: stable Disposition: PACU
[2023-08-11] MEDS: Iron Sucrose Complex 400 MG in 0.9 % Sodium Chloride 250 ML 180 MG IV (16:30)
[2023-08-11] MEDS: fentaNYL citrate/PF 100 MCG/2 ML VIAL IVPUSH (16:30)
[2023-08-11] MEDS: HYDROmorphone HCl 0.5 MG/0.5 ML SYRINGE 0.25 MG IVPUSH ×2 (17:10→17:15)
[2023-08-11] MEDS: Acetaminophen 1,000 MG/100 ML PIGGYBACK 100 MG IV (17:59)
== END 2023-08-11 19:35 | disposition home or self-care (01) ==
PROVIDERS: PCP Internal Medicine; Visit Provider Surgery
PROC: 0JB80ZZ Excision of Abdomen Subcutaneous Tissue and Fascia, Open Approach (ICD-10-PCS; CPT 15830; principal; 2023-08-11 10:30)
PROC: (CPT 15836; 2023-08-11 10:30)
DX: L98.7 Excessive and redundant skin and subcutaneous tissue (principal); L30.4 Erythema intertrigo; E65 Localized adiposity; I95.9 Hypotension, unspecified; E78.5 Hyperlipidemia, unspecified; Z98.84 Bariatric surgery status; I13.0 Hypertensive heart and chronic kidney disease with heart failure and stage 1 through stage 4 chronic kidney disease, or unspecified chronic kidney disease; I50.30 Unspecified diastolic (congestive) heart failure; N18.9 Chronic kidney disease, unspecified; E11.22 Type 2 diabetes mellitus with diabetic chronic kidney disease; G47.33 Obstructive sleep apnea (adult) (pediatric); Z79.899 Other long term (current) drug therapy; Z99.89 Dependence on other enabling machines and devices; Z88.1 Allergy status to other antibiotic agents; Z88.8 Allergy status to other drugs, medicaments and biological substances; Z98.890 Other specified postprocedural states; Z87.891 Personal history of nicotine dependence
CPT/HCPCS: 15830; 15847; 15836; 86850; 86870; 86880; 86900; 86901; 86902; 86905; 86920; 86922; 88304; C9088; J0131; J1100; J1170; J1756; J1956; J2250; J2371; J2405; J2704; J3010; J3370

== ENCOUNTER → 2023-08-11 06:01 | Outpatient (BNV) | payer MEDICAID, SELFPAY | PROVIDERS: PCP Internal Medicine; Visit Provider Surgery | DX: L98.7 Excessive and redundant skin and subcutaneous tissue (principal) | CPT/HCPCS: 15830; 15836 ==

== ENCOUNTER 2023-08-17 10:16 | Outpatient (AMB) | payer MEDICAID, SELFPAY ==
[2023-08-17 10:34] VITALS: BP 142/73; PULSE 111; TEMP 36.1; O2SAT 100
--- NOTE | 2023-08-17 10:34 | MHC.OFFVISWM ---
Intake VS Expanded 08/17/23 10:34 BP 142/73 H Blood Pressure Location Rt brachial Blood Pressure Position Sitting Pulse 111 H Pulse Source Pulse Oximeter Temp 97.0 F Temperature Source Temporal Artery Scan Pulse Oximetry 100 Oxygen Delivery Method Room Air Intake Visit Reasons: (OV) PO Pannic/Brachio 08/11/23 Allergies amoxicillin Allergy (Severe, Verified 08/17/23 10:34) yeast infection, itching gabapentin Allergy (Severe, Verified 08/17/23 10:34) Swelling baclofen Allergy (Intermediate, Verified 08/17/23 10:34) Swelling, sob Meloxicam Allergy (Severe, Uncoded 08/06/23 12:02) swelling HPI HPI Comments History of Present Illness Details Patient is a 58-year-old female who returns to the office today in follow-up. She is status post panniculectomy and bilateral brachioplasty performed on 08/11/2023. She reports overall approximately 50-60 mL of serosanguineous fluid from the collection bulb per day. She denies any drainage from the abdominal incision or either arm incision. She states she is following her suggested meal plan as well as continuing her antibiotics. She continues to have discomfort of the right shoulder. She is able to ambulate with the use of her rolling walker. [facility] Medical History (Updated 08/14/23 @ 10:51 by Rui Victor MD) History of low back pain Hx of myocardial infarction (~11/2022) Hx of migraines CKD (chronic kidney disease) History of blood transfusion (~04/2023) Weakness of both legs History of seizures Major depressive disorder, recurrent Internal hernia Excess skin of upper extremity Lipoma History of lipoma Sleep apnea with use of continuous positive airway pressure (CPAP) Hypercholesterolemia Type 2 diabetes mellitus Anemia Lymphedema Migraines Anxiety Back pain Arthritis Carpal tunnel syndrome Body mass index (BMI) of 32.0-32.9 in adult Obesity (BMI 30-39.9) Intestinal malabsorption following gastrectomy H/O nephrolithotomy with removal of calculi Surgical History History of dental surgery (~06/2023) H/O hernia repair History of gastric surgery Hx of colonoscopy Hx of lumpectomy H/O cervical discectomy History of Zane-en-Y gastric bypass S/P carpal tunnel release Hx of section S/P knee replacement History of back surgery Family History Father No problems noted. Mother Arthritis Brother No problems noted. Brother No problems noted. Sister No problems noted. Sister No problems noted. Sister No problems noted. Sister No problems noted. Son No problems noted. Daughter No problems noted. 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 No evidence of dehiscence. Umbilicus is viable. Assessment & Plan Assessment & Plan (1) S/P panniculectomy: Code(s): Z98.890 - Other specified postprocedural states Plan: Continue meal plan, antibiotics as recommended by Dr. Victor. Continue to monitor drain output. Patient was given wound care supplies as her insurance is still getting verified through the supply company. Return to clinic 1 week. Continue abdominal binder. (2) S/P brachioplasty: Code(s): Z98.890 - Other specified postprocedural states Plan: Treatment plan as above. (3) Shoulder pain: Code(s): M25.519 - Pain in unspecified shoulder Plan: Continue analgesia as recommended. Coding Level of Care Code Global (37886) Diagnoses S/P panniculectomy Z98.890 S/P brachioplasty Z98.890 Shoulder pain M25.519
== END 2023-08-17 11:26 | disposition home or self-care (01) ==
PROVIDERS: PCP Internal Medicine; Visit Provider Physician Assistant Surgical
DX: L98.7 Excessive and redundant skin and subcutaneous tissue (principal); M25.519 Pain in unspecified shoulder
CPT/HCPCS: 99024

== ENCOUNTER → 2023-08-17 10:16 | Outpatient (BNVA) | payer MEDICAID, SELFPAY | PROVIDERS: PCP Internal Medicine; Visit Provider Physician Assistant Surgical | DX: M25.519 Pain in unspecified shoulder (principal); Z98.890 Other specified postprocedural states | CPT/HCPCS: 99212 ==

== ENCOUNTER 2023-08-24 10:20 | Outpatient (AMB) | payer MEDICAID, SELFPAY ==
--- NOTE | 2023-08-24 10:29 | MHC.OFFVISWM ---
Intake VS Expanded 08/24/23 10:45 BP 138/63 Blood Pressure Location Rt brachial Blood Pressure Position Sitting Pulse 91 Pulse Source Pulse Oximeter Temp 96.1 F L Temperature Source Tympanic Pulse Oximetry 99 Intake Visit Reasons: (OV) PO Pannic/Brachio 08/11/23 Allergies amoxicillin Allergy (Severe, Verified 08/24/23 10:46) yeast infection, itching gabapentin Allergy (Severe, Verified 08/24/23 10:46) Swelling baclofen Allergy (Intermediate, Verified 08/24/23 10:46) Swelling, sob Meloxicam Allergy (Severe, Uncoded 08/24/23 10:46) swelling HPI HPI Comments History of Present Illness Details 58-year-old female returns to the office today in follow-up. She is status post panniculectomy and bilateral brachioplasty performed on 08/11/2023. She reports continued approximately 25-35 mL of serosanguineous fluid from the collection bulb daily. She additionally continues to complain of right shoulder pain. She is able to ambulate with the use of her rolling walker although does have pain with increased range of motion of her right shoulder. She denies other complaints. She continues her antibiotics and meal plan per Dr. Victor. [facility] Medical History History of low back pain Hx of myocardial infarction (~11/2022) Hx of migraines CKD (chronic kidney disease) History of blood transfusion (~04/2023) Weakness of both legs History of seizures Major depressive disorder, recurrent Internal hernia Excess skin of upper extremity Lipoma History of lipoma Sleep apnea with use of continuous positive airway pressure (CPAP) Hypercholesterolemia Type 2 diabetes mellitus Anemia Lymphedema Migraines Anxiety Back pain Arthritis Carpal tunnel syndrome Body mass index (BMI) of 32.0-32.9 in adult Obesity (BMI 30-39.9) Intestinal malabsorption following gastrectomy H/O nephrolithotomy with removal of calculi Surgical History History of dental surgery (~06/2023) H/O hernia repair History of gastric surgery Hx of colonoscopy Hx of lumpectomy H/O cervical discectomy History of Zane-en-Y gastric bypass S/P carpal tunnel release Hx of section S/P knee replacement History of back surgery Family History Father No problems noted. Mother Arthritis Brother No problems noted. Brother No problems noted. Sister No problems noted. Sister No problems noted. Sister No problems noted. Sister No problems noted. Son No problems noted. Daughter No problems noted. Social History Household Members: Other Household Members Other:: son Housing: Residential Are you a primary day care provider to a significant other at home: No Do you presently have visiting nurse or other home services: Yes (TAXATION CONSULTANT 4 hrs/day) Alcohol intake: former Patient Tobacco Use Status: Former Tobacco user Quit Date: 2018 Tobacco use type: Cigarette Advance Directives Date on File: 07/04/21 service: No Current occupational status: disabled Physical Exam Vital Signs: Last Vital Signs Temp 96.1 F L 08/24/23 10:45 Pulse 91 08/24/23 10:45 BP 138/63 08/24/23 10:45 Pulse Ox 99 08/24/23 10:45 Skin Other: All incisions are clean, dry, intact. No evidence of dehiscence. Umbilicus is viable Assessment & Plan Assessment & Plan (1) S/P panniculectomy: Code(s): Z98.890 - Other specified postprocedural states Plan: Continue to monitor drain output Incision reinforced with Steri-Strips Continue antibiotics and meal plan as directed by Dr. Victor. Return to clinic 1 week. (2) S/P brachioplasty: Code(s): Z98.890 - Other specified postprocedural states Plan: Incision reinforced with Steri-Strips. Follow-up in 1 week. Coding Level of Care Code Global (15414) Diagnoses S/P panniculectomy Z98.890 S/P brachioplasty Z98.890
[2023-08-24 10:45] VITALS: BP 138/63; PULSE 91; TEMP 35.6; O2SAT 99
== END 2023-08-24 11:22 | disposition home or self-care (01) ==
PROVIDERS: PCP Internal Medicine; Visit Provider Physician Assistant Surgical
DX: L98.7 Excessive and redundant skin and subcutaneous tissue (principal)
CPT/HCPCS: 99024

== ENCOUNTER → 2023-08-24 10:20 | Outpatient (BNVA) | payer MEDICAID, SELFPAY | PROVIDERS: PCP Internal Medicine; Visit Provider Physician Assistant Surgical | DX: Z48.817 Encounter for surgical aftercare following surgery on the skin and subcutaneous tissue (principal); Z98.890 Other specified postprocedural states | CPT/HCPCS: 99212 ==

== ENCOUNTER 2023-08-27 11:24 | Outpatient (REF) | payer MEDICAID, SELFPAY ==
--- NOTE | ~2023-08-27 | XR_ITS ---
EXAMINATION: XR SHOULDER, RIGHT CLINICAL INFORMATION: Pain in right shoulder. COMPARISON: Chest radiograph of April 12, 2023. TECHNIQUE: AP external rotation, Grashey, scapular Y, and axillary views of the right shoulder. FINDINGS: Mild degenerative changes in the acromioclavicular joint with mild hypertrophic change. Degenerative changes on limited views of the thoracic spine with redemonstration of partially imaged device overlying [id number] thoracic spine, incompletely imaged. Glenohumeral alignment preserved. No abnormal soft tissue calcifications appreciated adjacent to the humeral head. XR/XR shoulder RT min 2V IMPRESSION: Mild degenerative changes in the acromioclavicular joint.
== END 2023-08-27 11:25 | disposition home or self-care (01) ==
LOC: HO.XRAY 11:24
PROVIDERS: PCP Internal Medicine; Visit Provider Surgery
DX: M25.511 Pain in right shoulder (principal)
CPT/HCPCS: 73030

== ENCOUNTER 2023-09-01 11:56 | Outpatient (AMB) | payer MEDICAID, SELFPAY ==
[2023-09-01 12:44] VITALS: BP 132/64; PULSE 96; TEMP 36.1; O2SAT 95
--- NOTE | 2023-09-01 12:44 | A.OFFVIS_ITS ---
Intake VS Expanded 09/01/23 12:44 BP 132/64 Blood Pressure Location Rt brachial Blood Pressure Position Sitting Pulse 96 Pulse Source Pulse Oximeter Temp 97.0 F Temperature Source Tympanic Pulse Oximetry 95 Oxygen Delivery Method Room Air Intake Visit Reasons: (OV) PO Pannic/Brachio 08/11/23 Allergies amoxicillin Allergy (Severe, Verified 09/01/23 12:46) yeast infection, itching gabapentin Allergy (Severe, Verified 09/01/23 12:46) Swelling baclofen Allergy (Intermediate, Verified 09/01/23 12:46) Swelling, sob Meloxicam Allergy (Severe, Uncoded 09/01/23 12:46) swelling HPI HPI Comments History of Present Illness Details 58-year-old female returns to the office today in follow-up. She is status post panniculectomy and brachioplasty performed on 08/11/2023. She additionally has been having difficulty with right arm pain however has been u ndergoing occupational therapy with improvement. She is no longer taking narcotics. She does state that she has been having some constipation and has only been taking the Colace once at night. She states that when she was taking 2 at night she did much better. I advised her to take 2. Reports approximately 20 mL of serosanguineous fluid from the collection bulb. [facility] Medical History History of low back pain Hx of myocardial infarction (~11/2022) Hx of migraines CKD (chronic kidney disease) History of blood transfusion (~04/2023) Weakness of both legs History of seizures Major depressive disorder, recurrent Internal hernia Excess skin of upper extremity Lipoma History of lipoma Sleep apnea with use of continuous positive airway pressure (CPAP) Hypercholesterolemia Type 2 diabetes mellitus Anemia Lymphedema Migraines Anxiety Back pain Arthritis Carpal tunnel syndrome Body mass index (BMI) of 32.0-32.9 in adult Obesity (BMI 30-39.9) Intestinal malabsorption following gastrectomy H/O nephrolithotomy with removal of calculi Surgical History History of dental surgery (~06/2023) H/O hernia repair History of gastric surgery Hx of colonoscopy Hx of lumpectomy H/O cervical discectomy History of Zane-en-Y gastric bypass S/P carpal tunnel release Hx of section S/P knee replacement History of back surgery Family History Father No problems noted. Mother Arthritis Brother No problems noted. Brother No problems noted. Sister No problems noted. Sister No problems noted. Sister No problems noted. Sister No problems noted. Son No problems noted. Daughter No problems noted. Social History Household Members: Other Household Members Other:: son Housing: [facility] Are you a primary care program director to a significant other at home: No Do you presently have visiting nurse or other home services: Yes (DNA ANALYST 4 hrs/day) Alcohol intake: former Patient Tobacco Use Status: Former Tobacco user Quit Date: 2018 Tobacco use type: Cigarette Advance Directives Date on File: 07/04/21 service: No Current occupational status: disabled Physical Exam Vital Signs: Last Vital Signs Temp 97.0 F 09/01/23 12:44 Pulse 96 09/01/23 12:44 BP 132/64 09/01/23 12:44 Pulse Ox 95 09/01/23 12:44 Oxygen Delivery Method Room Air 09/01/23 12:44 Skin Other: Abdominal incision is clean, dry, intact. Umbilicus is viable. Bilateral arm incisions also are clean, dry, intact without evidence of infection. Assessment & Plan Assessment & Plan (1) S/P panniculectomy: Code(s): Z98.890 - Other specified postprocedural states Plan: Patient's incisions are healing well. She continues with the meal plan. I did give her some ensure max as she did not have anymore boost and does not have any money to purchase any. I encouraged her to take 1 ensure max twice daily and follow the meal plan by Dr. Victor to include 3 forks of protein and 3 of vegetables. She will continue with dressing changes and follow-up in the office in 1 week. (2) Right shoulder pain: Code(s): M25.511 - Pain in right shoulder Plan: Improving with outpatient occupational therapy, continue. (3) Constipation: Code(s): K59.00 - Constipation, unspecified Plan: Increase Colace to 200 mg at night. Coding Level of Care Code Global (51231) Diagnoses S/P panniculectomy Z98.890 Right shoulder pain M25.511 Constipation K59.00
== END 2023-09-01 13:42 | disposition home or self-care (01) ==
PROVIDERS: PCP Internal Medicine; Visit Provider Physician Assistant Surgical
DX: L98.7 Excessive and redundant skin and subcutaneous tissue (principal); K59.00 Constipation, unspecified
CPT/HCPCS: 99024

== ENCOUNTER → 2023-09-01 11:56 | Outpatient (BNVA) | payer MEDICAID, SELFPAY | PROVIDERS: PCP Internal Medicine; Visit Provider Physician Assistant Surgical | DX: Z98.890 Other specified postprocedural states (principal); M25.511 Pain in right shoulder; K59.00 Constipation, unspecified | CPT/HCPCS: 99212 ==

== ENCOUNTER 2023-09-07 10:24 | Outpatient (AMB) | payer MEDICAID, SELFPAY ==
--- NOTE | 2023-09-07 10:35 | MHC.OFFVISWM ---
Intake VS Expanded 09/07/23 10:44 BP 131/79 Blood Pressure Location Rt brachial Blood Pressure Position Sitting Pulse 83 Pulse Source Pulse Oximeter Temp 97.2 F Temperature Source Temporal Artery Scan Pulse Oximetry 100 Oxygen Delivery Method Room Air Intake Visit Reasons: (OV) PO Pannic/Brachio 08/11/23 Allergies amoxicillin Allergy (Severe, Verified 09/07/23 10:45) yeast infection, itching gabapentin Allergy (Severe, Verified 09/07/23 10:45) Swelling baclofen Allergy (Intermediate, Verified 09/07/23 10:45) Swelling, sob Meloxicam Allergy (Severe, Uncoded 09/01/23 12:46) swelling HPI HPI Comments History of Present Illness Details Patient is a pleasant 58-year-old female who returns to the office today in follow-up. She is status post panniculectomy and brachioplasty performed on 08/11/2023. She states that she continues to follow the meal plan as prescribed by Dr. Victor as well as the antibiotics. She is noting approximately 10-15 mL of serosanguineous fluid from the collection bulb per day. She does complain of some straining while moving her bowels over the last week. She does state that approximately 1 week ago she was started on outpatient psychotropic medications including Lamictal and Lexapro as well as trazodone. She is noticed significant swelling of her lower extremities without associated shortness of breath over the last 1 week. She was instructed very clearly to call the provider who had started these medications to let them know of the side effect that she is experiencing lower extremity edema. She states that she will do this today. [facility] Medical History History of low back pain Hx of myocardial infarction (~11/2022) Hx of migraines CKD (chronic kidney disease) History of blood transfusion (~04/2023) Weakness of both legs History of seizures Major depressive disorder, recurrent Internal hernia Excess skin of upper extremity Lipoma History of lipoma Sleep apnea with use of continuous positive airway pressure (CPAP) Hypercholesterolemia Type 2 diabetes mellitus Anemia Lymphedema Migraines Anxiety Back pain Arthritis Carpal tunnel syndrome Body mass index (BMI) of 32.0-32.9 in adult Obesity (BMI 30-39.9) Intestinal malabsorption following gastrectomy H/O nephrolithotomy with removal of calculi Surgical History History of dental surgery (~06/2023) H/O hernia repair History of gastric surgery Hx of colonoscopy Hx of lumpectomy H/O cervical discectomy History of Zane-en-Y gastric bypass S/P carpal tunnel release Hx of section S/P knee replacement History of back surgery Family History Father No problems noted. Mother Arthritis Brother No problems noted. Brother No problems noted. Sister No problems noted. Sister No problems noted. Sister No problems noted. Sister No problems noted. Son No problems noted. Daughter No problems noted. Social History Household Members: Other Household Members Other:: son Housing: [facility] Are you a primary pharmacy care coordinator to a significant other at home: No Do you presently have visiting nurse or other home services: Yes (OBSTETRICS SPECIALIST 4 hrs/day) Alcohol intake: former Patient Tobacco Use Status: Former Tobacco user Quit Date: 2018 Tobacco use type: Cigarette Advance Directives Date on File: 07/04/21 service: No Current occupational status: disabled Physical Exam Vital Signs: Last Vital Signs Temp 97.2 F 09/07/23 10:44 Pulse 83 09/07/23 10:44 BP 131/79 09/07/23 10:44 Pulse Ox 100 09/07/23 10:44 Oxygen Delivery Method Room Air 09/07/23 10:44 Skin Other: All incisions healing nicely. No evidence of dehiscence or infection. Extrem General: Yes edema Assessment & Plan Assessment & Plan (1) S/P panniculectomy: Code(s): Z98.890 - Other specified postprocedural states Plan: Additional brachioplasty. Continue with dressing to the abdominal incision the arm incisions have healed up nicely. We will continue to monitor drain output with possible discontinuance next week. (2) Constipation: Code(s): K59.00 - Constipation, unspecified Plan: Add senna 2 tabs at HS. (3) Edema: Code(s): R60.9 - Edema, unspecified Plan: Edema likely secondary to initiation of psychotropic medications. She is going to call the provider who started these medications to discuss the lower extremity edema. She states that she is going to do this today. She has not having any shortness of breath. VSS Medications: New sennosides (senna) 17.2 mg (2 x 8.6 mg) PO BEDTIME PRN 30 tabs 0RF constipation Coding Level of Care Code Global (07491) Diagnoses S/P panniculectomy Z98.890 Constipation K59.00 Edema R60.9
[2023-09-07 10:44] VITALS: BP 131/79; PULSE 83; TEMP 36.2; O2SAT 100
== END 2023-09-07 11:06 | disposition home or self-care (01) ==
PROVIDERS: PCP Internal Medicine; Visit Provider Physician Assistant Surgical
DX: L98.7 Excessive and redundant skin and subcutaneous tissue (principal); K59.00 Constipation, unspecified; R60.9 Edema, unspecified; R60.0 Localized edema
CPT/HCPCS: 99024

== ENCOUNTER → 2023-09-07 10:24 | Outpatient (BNVA) | payer MEDICAID, SELFPAY | PROVIDERS: PCP Internal Medicine; Visit Provider Physician Assistant Surgical | DX: K59.00 Constipation, unspecified (principal); R60.9 Edema, unspecified; Z48.817 Encounter for surgical aftercare following surgery on the skin and subcutaneous tissue; Z98.890 Other specified postprocedural states | CPT/HCPCS: 99212 ==

== ENCOUNTER 2023-09-14 09:04 | Day surgery (SDC) | payer MEDICAID, SELFPAY ==
--- NOTE | ~2023-09-14 | CT_ITS ---
Normocytic anemia PROCEDURES: 1. Limited preprocedure CT of the pelvis. Permanent images saved in PACS. 2. 11 g bone marrow core biopsy of the left posterior iliac spine 3. 11 g bone marrow aspirate of the left posterior iliac spine CLINICIANS: Chris Giron PA-C MEDICATIONS: -Versed 1.5 mg, Fentanyl 75 mcg, and lidocaine 1% 10 mL SQ -Antibiotics: None -For additional details, please see nursing flowsheet. COMPLICATIONS: None ESTIMATED BLOOD LOSS: < 5 ml CONTRAST: None SPECIMENS: 11 g core placed in formalin. Bone marrow aspirate placed in EDTA and sodium heparin tubes MODERATE SEDATION TIME: 17 min PROCEDURE NOTE: The procedure, risks, benefits, and alternatives were carefully explained to the patient and written informed consent was obtained. The patient was placed prone on the CT table. A timeout was performed. A limited CT of the pelvis was performed to localize posterior iliac spine and choose appropriate needle entry and trajectory. The patient was prepped and draped in usual sterile fashion. The skin, subcutaneous tissues, and periosteum were anesthetized with lidocaine. Under CT guidance, an 11-gauge bone marrow biopsy needle was advanced into the posterior iliac spine, with the tip positioned slightly cephalad. An 11-gauge core biopsy of the bone marrow was performed and was placed in formalin. Next, the 11-gauge bone marrow biopsy needle was then advanced into the posterior iliac spine, under CT guidance, with the tip positioned slightly caudal. A bone marrow aspirate was performed. The specimen was placed in the provided EDTA and sodium heparin tubes. The needle was removed. A dry dressing was applied and secured with a Tegaderm. There were no immediate complications. The patient was stable after the procedure and was transferred to the post anesthesia care unit. The procedure was done under moderate sedation with a dedicated nurse for monitoring of vital signs. CT/CT biopsy asp core bone marrow Impression: CT-guided bone marrow biopsy and aspirate This procedure was performed by Chris Giron PA-C and supervised by Dr. Ramirez.
[2023-09-14 09:37] VITALS: BMI 24.1
[2023-09-14 09:54] VITALS: BP 114/60; PULSE 69; RESP 18; TEMP 36.8; O2SAT 100
--- NOTE | 2023-09-14 10:28 | PC.NURSE ---
Chris Giron updated that patient had panniculectomy on 08/11/23 with drain and dressing still in place. Also that patient was in ER on Wednesday for BLE edema x 2 and right hip pain. Treated with Lasix and percocet. Per Chris - jaimie to proceed.
[2023-09-14 10:38] LABS: MANUAL DIFF FLAG NO
[2023-09-14 10:39] LABS: Basophils Percent Auto 0.3 % (0-2); Eosinophils Absolute Auto 0.3 X10*3/uL (0.0-0.4); Eosinophils Percent Auto 4.3 % (0-4); Hematocrit 30.7 % (37.0-47.0); Hemoglobin 9.4 g/dl (12.0-16.0); Imm Gran Abs Auto 0.01 X10*3/uL (0.00-0.03); Imm Gran Pct Auto 0.2 % (0.0-0.4); Lymphocytes Absolute Auto 1.6 X10*3/uL (1.2-4.9); Lymphocytes Percent Auto 25.2 % (20-40); Mean Corpuscular HGB Conc 30.6 g/dl (31.0-35.0); Mean Corpuscular Volume 84.8 fL (80.0-98.0); Monocytes Absolute Auto 0.3 X10*3/uL (0.1-1.2); Monocytes Percent Auto 4.9 % (2-11); Neutrophils Absolute Auto 4.1 x10*3/uL (2.0-8.3); Neutrophils Percent Auto 65.1 % (45-73); Platelet Count 156 X10*3/uL (160-400); Red Blood Count 3.62 X10*6/uL (4.20-5.50); Red Cell Distribution Width 15.5 % (11.0-16.0); White Blood Count 6.3 X10*3/uL (4.8-10.8)
[2023-09-14 11:25] VITALS: BP 105/46; PULSE 74; RESP 18; TEMP 36.9; O2SAT 100
[2023-09-14] MEDS: Lidocaine HCl 1 % MPF 30 ML VIAL 10 ML SUBCUT (11:34)
[2023-09-14] MEDS: oxyCODONE HCl Immed Release 5 MG TABLET PO (11:39)
[2023-09-14 11:40] VITALS: BP 101/54; PULSE 83; RESP 18; O2SAT 100
[2023-09-14 11:55] VITALS: BP 100/50; PULSE 83; RESP 20; TEMP 36.7; O2SAT 100
[2023-09-14 12:29] LABS: Bone Marrow SEE SEPARATE REPORT
== END 2023-09-14 12:32 | disposition home or self-care (01) ==
PROVIDERS: Pathology Anatomic Pathology & Clinical Pathology; Radiology Vascular & Interventional Radiology; PCP Internal Medicine; Visit Provider Internal Medicine Medical Oncology
PROC: (CPT 38221; principal; 2023-09-14 10:30)
DX: D64.9 Anemia, unspecified (principal); E78.00 Pure hypercholesterolemia, unspecified; E11.9 Type 2 diabetes mellitus without complications; I89.0 Lymphedema, not elsewhere classified; R53.1 Weakness; G47.33 Obstructive sleep apnea (adult) (pediatric); Z99.89 Dependence on other enabling machines and devices; Z98.890 Other specified postprocedural states; Z79.899 Other long term (current) drug therapy; Z88.1 Allergy status to other antibiotic agents; Z88.8 Allergy status to other drugs, medicaments and biological substances
CPT/HCPCS: 36415; 38222; 85025; 88184; 88185; 88237; 88264; 88305; 88311; 88313; 88374; 99152; J2250; J2310; J3010

== ENCOUNTER → 2023-09-14 10:39 | Outpatient (BNV) | payer MEDICAID, SELFPAY | PROVIDERS: PCP Internal Medicine; Visit Provider Physician Assistant Surgical | DX: D64.9 Anemia, unspecified (principal) | CPT/HCPCS: 38222; 77012; 99152 ==

== ENCOUNTER 2023-09-15 11:48 | Outpatient (AMB) | payer MEDICAID, SELFPAY ==
--- NOTE | 2023-09-15 11:51 | A.OFFVIS_ITS ---
Intake VS Expanded 09/15/23 11:59 BP 140/75 H Blood Pressure Location Rt brachial Blood Pressure Position Sitting Pulse 94 Temp 97.2 F Temperature Source Temporal Artery Scan Pulse Oximetry 100 Oxygen Delivery Method Room Air Intake Visit Reasons: (OV) PO Pannic/Brachio 08/11/23 Allergies amoxicillin Allergy (Severe, Verified 09/15/23 11:51) yeast infection, itching gabapentin Allergy (Severe, Verified 09/15/23 11:51) Swelling baclofen Allergy (Intermediate, Verified 09/15/23 11:51) Swelling, sob Meloxicam Allergy (Severe, Uncoded 09/14/23 10:28) swelling HPI HPI Comments History of Present Illness Details Patient is a pleasant 58-year-old female returns to the office today in follow-up. She is status post panniculectomy and brachioplasty performed on 08/11/2023. She states that she has had approximately 10 mL or less out via the collection bulb daily for the last 5-6 days. She continues her meal plan as directed by Dr. Victor and antibiotics. She states that the therapy for her right shoulder has significantly improved her range of motion and she does not complain of any pain today. She did have significant lower extremity edema last visit approximately 1 week ago and she has since contacted her outpatient psychiatric provider who changed her medications. Her primary care physician has increased her diuretic and she reports decrease in swelling. Additionally, she continues with constipation. She has been taking 2 senna tablets at night. No significant abdominal pain, nausea, vomiting. [facility] Medical History History of low back pain Hx of myocardial infarction (~11/2022) Hx of migraines CKD (chronic kidney disease) History of blood transfusion (~04/2023) Weakness of both legs History of seizures Major depressive disorder, recurrent Internal hernia Excess skin of upper extremity Lipoma History of lipoma Sleep apnea with use of continuous positive airway pressure (CPAP) Hypercholesterolemia Type 2 diabetes mellitus Anemia Lymphedema Migraines Anxiety Back pain Arthritis Carpal tunnel syndrome Body mass index (BMI) of 32.0-32.9 in adult Obesity (BMI 30-39.9) Intestinal malabsorption following gastrectomy H/O nephrolithotomy with removal of calculi Surgical History History of dental surgery (~06/2023) H/O hernia repair History of gastric surgery Hx of colonoscopy Hx of lumpectomy H/O cervical discectomy History of Zane-en-Y gastric bypass S/P carpal tunnel release Hx of section S/P knee replacement History of back surgery Family History Father No problems noted. Mother Arthritis Brother No problems noted. Brother No problems noted. Sister No problems noted. Sister No problems noted. Sister No problems noted. Sister No problems noted. Son No problems noted. Daughter No problems noted. Social History Household Members: Other Household Members Other:: son Housing: [facility] Are you a primary manager care management to a significant other at home: No Do you presently have visiting nurse or other home services: Yes (DIRECTOR OF GROUP COUNSELING PROGRAM 4 hrs/day) Alcohol intake: former Patient Tobacco Use Status: Former Tobacco user Quit Date: 2018 Tobacco use type: Cigarette Advance Directives Date on File: 07/04/21 service: No Current occupational status: disabled Physical Exam Vital Signs: Last Vital Signs Temp 97.2 F 09/15/23 11:59 Pulse 94 09/15/23 11:59 BP 140/75 H 09/15/23 11:59 Pulse Ox 100 09/15/23 11:59 Oxygen Delivery Method Room Air 09/15/23 11:59 Skin Other: All incisions are healing very nicely. No evidence of dehiscence or infection. Assessment & Plan Assessment & Plan (1) S/P panniculectomy: Code(s): Z98.890 - Other specified postprocedural states Plan: Thuan drain removed without incident. The insertion site was covered with a dry clean dressing. She was told to avoid shower for the next 48 hours. She will continue wearing the abdominal binder. She will continue antibiotics for another 2 weeks. Continue meal plan and follow-up in the office in 2 weeks. (2) S/P brachioplasty: Code(s): Z98.890 - Other specified postprocedural states Plan: Healing nicely. Continue current plan as above. Coding Level of Care Code Global (89744) Diagnoses S/P panniculectomy Z98.890 S/P brachioplasty Z98.890
[2023-09-15 11:59] VITALS: BP 140/75; PULSE 94; TEMP 36.2; O2SAT 100
== END 2023-09-15 12:18 | disposition home or self-care (01) ==
PROVIDERS: PCP Internal Medicine; Visit Provider Physician Assistant Surgical
DX: Z98.890 Other specified postprocedural states (principal)
CPT/HCPCS: 99024

== ENCOUNTER → 2023-09-15 11:48 | Outpatient (BNVA) | payer MEDICAID, SELFPAY | PROVIDERS: PCP Internal Medicine; Visit Provider Physician Assistant Surgical | DX: Z48.817 Encounter for surgical aftercare following surgery on the skin and subcutaneous tissue (principal); Z98.890 Other specified postprocedural states | CPT/HCPCS: 99212 ==

== ENCOUNTER 2023-09-24 11:32 | Outpatient (AMB) | payer MEDICAID, SELFPAY ==
--- NOTE | 2023-09-24 11:33 | MHC.OFFVIS ---
Intake Vital Signs 09/24/23 11:42 Height 5 ft 6 in Weight 145 lb BMI 23.4 BP 123/55 L Blood Pressure Location Lt brachial Position Sitting Pulse 89 Pulse Source Pulse Oximeter Pulse Oximetry (%) 98 Oxygen Delivery Method Room Air Intake Visit Reasons: CHRONIC PAIN Intake Note: Pain today 03/23 Hematology Nurse Required: No Accompanied by: Self / Same As Patient Allergies amoxicillin Allergy (Severe, Verified 09/24/23 11:38) yeast infection, itching gabapentin Allergy (Severe, Verified 09/24/23 11:38) Swelling baclofen Allergy (Intermediate, Verified 09/24/23 11:38) Swelling, sob lamotrigine Allergy (Unknown, Verified 09/24/23 11:42) Swelling Meloxicam Allergy (Severe, Uncoded 09/14/23 10:28) swelling HPI CHRONIC PAIN HPI Details Patient is a 58 years old female with extensive medical and surgical history, including multiple back surgeries x4, [facility] [facility] SCS implant since 2013 and battery change in 2018, gastric bypass (2018), s/p recent panniculectomy and brachioplasty (08/11/23) and bone marrow for anemia (09/14/23), diabetes, migraines, chronic bilateral lower extremity swelling, OR and stroke (2022), presents today for initial evaluation of right hip pain for weeks. Denies any recent or past trauma, injury or falls. Patient reports she was evaluated at [facility] and was told her right hip xray was normal. This report is not available for review today. Pain is localized to her posterolateral hip with burning and stabbing pain at her right groin and pins and needles sensations to her RLE anteriorly and laterally. She has difficulty getting out of chair, bed or cars. Reports fragmented and inadequate sleep due to difficulty sleeping on her right side and tenderness on the left buttock due to recent bone marrow. Patient reports bilateral leg pain due to swelling. Reports minimal relief with Lasix. Pain is constant and rated at 10/10. Pain affects her daily activities, functioning, mobility, mood, sleep and social interactions. She cannot take NSAIDs due to gastric bypass and has been taking Tylenol and tried short term opioids with continued symptoms. Patient completed physical therapy, multiple injections and SCS implant at [facility] with partial relief. Denies any fever, chills, bladder or bowel dysfunction or saddle anesthesia. Location Lower back radiates down bilateral legs Duration Chronic pain for 34 years, right hip x 4 weeks Characteristics of symptom or complaint Sharp, stabbing, burning, pins and needles, numbness, squeezing, cramps Aggravating or associated factors Walking, bending, climbing stairs, movements, changing positions Relieving factors nothing tried Tylenol, heat therapy, OTC topical and oral medications Treatment PT, injections, SCS trial and implant in 2019 [facility] Medical History History of low back pain Hx of myocardial infarction (~11/2022) Hx of migraines CKD (chronic kidney disease) History of blood transfusion (~04/2023) Weakness of both legs History of seizures Major depressive disorder, recurrent Internal hernia Excess skin of upper extremity Lipoma History of lipoma Sleep apnea with use of continuous positive airway pressure (CPAP) Hypercholesterolemia Type 2 diabetes mellitus Anemia Lymphedema Migraines Anxiety Back pain Arthritis Carpal tunnel syndrome Body mass index (BMI) of 32.0-32.9 in adult Obesity (BMI 30-39.9) Intestinal malabsorption following gastrectomy H/O nephrolithotomy with removal of calculi Surgical History History of dental surgery (~06/2023) H/O hernia repair History of gastric surgery Hx of colonoscopy Hx of lumpectomy H/O cervical discectomy History of Zane-en-Y gastric bypass S/P carpal tunnel release Hx of section S/P knee replacement History of back surgery Family History Father No problems noted. Mother Arthritis Brother No problems noted. Brother No problems noted. Sister No problems noted. Sister No problems noted. Sister No problems noted. Sister No problems noted. Son No problems noted. Daughter No problems noted. 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) Alcohol intake: former Patient Tobacco Use Status: Former Tobacco user Quit Date: 2018 Tobacco use type: Cigarette Advance Directives Date on File: 07/04/21 service: No Current occupational status: disabled Review of Systems Const All systems reviewed & are unremarkable except as noted in HPI and below Reports as per HPI, Denies body aches, Denies chills, Reports difficulty sleeping, Reports fatigue, Denies fever(s), Denies frequent falls, Denies headache(s), Denies malaise, Denies night sweats, Reports weakness (RLE) and Denies weight loss ENT Denies headache(s) Musc Reports as per HPI, Denies myalgias, Reports arthralgias, Denies joint swelling, Reports limited range of motion, Reports muscle cramps (right anterior thigh and bilateral calves), Reports numbness, Reports stiffness and Reports tingling Neuro Denies frequent falls, Denies headache(s), Reports numbness, Reports tingling and Reports weakness (RLE) Endo Reports fatigue Physical Exam Vital Signs: Last Vital Signs Pulse 89 09/24/23 11:42 BP 123/55 L 09/24/23 11:42 Pulse Ox 98 09/24/23 11:42 Oxygen Delivery Method Room Air 09/24/23 11:42 BMI result Body Mass Index 23.4 General: Appears afebrile. Alert and oriented. Mood and affect appropriate. Follows and participates in conversation appropriately. Respiratory effort is unlabored. No cough. Able to transition from sit to stand unassisted. Uses walker with ambulation. Ambulates with bilaterally normal heel strike and toe off. Reports RLE weakness, h/o stroke. Back/Spine/Pelvis Other: No midline tenderness to palpation in the thoracic or lumbar region. Moderate paraspinal tenderness to palpation in the lumbar spine, more on the right side. Lumbar extension and flexion reproduces mild to moderate pain. ?Painful facet loading bilaterally. Mild groin pain with I/E hip rotations on the right. Moderate TTP in the projection of right SIJ area. Cervical Spine: cervical ROM normal and No Cervical spine tenderness Thoracic/Lumbar Spine: thoracic and lumbar spine normal to inspection, Thoracic/lumbar spine scar(s), Lasegue's sign negative, straight leg raise negative bilaterally, pain with thoraco-lumbar ROM, thoraco-lumbar ROM limited, No thoracic spinal tenderness and No lumbar spinal tenderness Pelvis: buttock tenderness on the right and no sciatic notch tenderness Sacroiliac joints: on the right (+Timothy's, +Stinchfield, +Pelvic compression) tender to palpation and on the left nontender Extrem General: Yes capillary refill normal, Yes no joint enlargement, Yes calf tenderness (bilateral), No clubbing and Yes edema (BLE +1/+2) Right lower extremity: hip/thigh (Mild groin pain with external rotation) Details: tenderness Location: of the hip Location: posterolaterally and over the greater trochanter and swelling (BLE); no ecchymosis, no crepitus and no unusual warmth Results Reviewed Results Reviewed: CT/CT abdomen pelvis w IV con on 04/16/23 PELVIC VISCERA: Unremarkable. OSSEOUS STRUCTURES: Spinal stimulator in the thoracic spinal canal. Postsurgical changes with hardware at the L5-S1 disc space. US/US venous duplex LE BI 07/03/21 IMPRESSION: No DVT demonstrated in the bilateral lower extremity. The right peroneal vein is not well visualized. There is mild bilateral calf edema. There are bilateral groin lymph nodes seen. Assessment & Plan Assessment & Plan (1) Swelling of both lower extremities: Code(s): M79.89 - Other specified soft tissue disorders (2) Bilateral calf pain: Code(s): M79.661 - Pain in right lower leg; M79.662 - Pain in left lower leg (3) Lymphedema of both lower extremities: Code(s): I89.0 - Lymphedema, not elsewhere classified (4) Right hip pain: Code(s): M25.551 - Pain in right hip (5) Sacroiliac joint pain: Code(s): M53.3 - Sacrococcygeal disorders, not elsewhere classified Plan Recommend Physical therapy for acute right hip pain for 4 weeks. Patient reports difficulty coming for appointments due to pain. Receives daily MANAGER OF SUPPLY CH[employer] services. Interested in home PT. Script provided via [facility] services. Discussed interventional treatments, including diagnostic vs therapeutic injections to address right hip and SIJ pain if no pain improvement with PT and home exercise program. Also discussed longer term pain relief with neuromodulation and RFA procedures. Request sent to [facility] for ER report and recent right hip xray. Vascular referral to further address chronic bilateral lower extremity swelling. Continue elevation, rest, compression stockings. All questions and concerns have been answered and patient agreed with the plan. Follow up after PT and sooner as needed. Orders: Referrals Vascular Surgery Referral I89.0 - Lymphedema, not elsewhere classified, M79.661 - Pain in right lower leg, M79.662 - Pain in left lower leg, M79.89 - Other specified soft tissue disorders [facility]osp[facility] Referral M25.551 - Pain in right hip, M53.3 - Sacrococcygeal disorders, not elsewhere classified, M79.89 - Other specified soft tissue disorders Coding Level of Care Code New Pt Level 4 (09856) Diagnoses Swelling of both lower extremities M79.89 Bilateral calf pain M79.661; M79.662 Lymphedema of both lower extremities I89.0 Right hip pain M25.551 Sacroiliac joint pain M53.3
[2023-09-24 11:42] VITALS: BP 123/55; PULSE 89; O2SAT 98; BMI 23.4
== END 2023-09-24 12:16 | disposition home or self-care (01) ==
PROVIDERS: PCP Internal Medicine; Referring Provider Internal Medicine; Visit Provider Nurse Practitioner Family
DX: M79.89 Other specified soft tissue disorders (principal); M79.661 Pain in right lower leg; M79.662 Pain in left lower leg; I89.0 Lymphedema, not elsewhere classified; M25.551 Pain in right hip; M53.3 Sacrococcygeal disorders, not elsewhere classified
CPT/HCPCS: 99204

== ENCOUNTER → 2023-09-24 11:32 | Outpatient (BNVA) | payer MEDICAID, SELFPAY | PROVIDERS: PCP Internal Medicine; Referring Provider Internal Medicine; Visit Provider Nurse Practitioner Family | DX: M79.89 Other specified soft tissue disorders (principal); M79.661 Pain in right lower leg; M79.662 Pain in left lower leg; M25.551 Pain in right hip; M53.3 Sacrococcygeal disorders, not elsewhere classified; I89.0 Lymphedema, not elsewhere classified | CPT/HCPCS: 99212 ==

== ENCOUNTER 2023-09-29 11:53 | Outpatient (AMB) | payer MEDICAID, SELFPAY ==
--- NOTE | 2023-09-29 11:55 | A.OFFVIS_ITS ---
Intake VS Expanded 09/29/23 12:02 BP 144/67 H Blood Pressure Location Rt brachial Blood Pressure Position Sitting Pulse 89 Pulse Source Pulse Oximeter Temp 96.3 F L Temperature Source Temporal Artery Scan Pulse Oximetry 100 Oxygen Delivery Method Room Air Intake Visit Reasons: (OV) PO Pannic/Brachio 08/11/23 Allergies amoxicillin Allergy (Severe, Verified 09/29/23 12:05) yeast infection, itching gabapentin Allergy (Severe, Verified 09/29/23 12:05) Swelling baclofen Allergy (Intermediate, Verified 09/29/23 12:05) Swelling, sob lamotrigine Allergy (Unknown, Verified 09/29/23 12:05) Swelling Meloxicam Allergy (Severe, Uncoded 09/29/23 12:05) swelling HPI HPI Comments History of Present Illness Details Pleasant 58-year-old female returns to the office today in follow-up. She is status post panniculectomy and brachioplasty performed on 08/11/2023. She offers complaints of constipation today, last bowel movement 3 days ago. She additionally reports discontinuance of the antidepressant medication that she had been started on that caused swelling in her lower extremities. She additionally endorses a new prescription of a ?water pill? which started last week. She does note a slight decrease in the swelling although some persistence. She is following up with her primary care regarding this. [facility] Medical History History of low back pain Hx of myocardial infarction (~11/2022) Hx of migraines CKD (chronic kidney disease) History of blood transfusion (~04/2023) Weakness of both legs History of seizures Major depressive disorder, recurrent Internal hernia Excess skin of upper extremity Lipoma History of lipoma Sleep apnea with use of continuous positive airway pressure (CPAP) Hypercholesterolemia Type 2 diabetes mellitus Anemia Lymphedema Migraines Anxiety Back pain Arthritis Carpal tunnel syndrome Body mass index (BMI) of 32.0-32.9 in adult Obesity (BMI 30-39.9) Intestinal malabsorption following gastrectomy H/O nephrolithotomy with removal of calculi Surgical History History of dental surgery (~06/2023) H/O hernia repair History of gastric surgery Hx of colonoscopy Hx of lumpectomy H/O cervical discectomy History of Zane-en-Y gastric bypass S/P carpal tunnel release Hx of section S/P knee replacement History of back surgery Family History Father No problems noted. Mother Arthritis Brother No problems noted. Brother No problems noted. Sister No problems noted. Sister No problems noted. Sister No problems noted. Sister No problems noted. Son No problems noted. Daughter No problems noted. 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 Assessment & Plan Assessment & Plan (1) S/P panniculectomy: Code(s): Z98.890 - Other specified postprocedural states Plan: Patient is healing very nicely from her panniculectomy and brachioplasty. Her underlying constipation is likely the result of multiple psychotropic medications as well as iron. Continue bowel medications. Prescription for p.r.n. Dulcolax added. Continue her meal plan and she certainly may walk at this point with the use of the abdominal binder. Follow-up in clinic 2 weeks Medications: New bisacodyl (Dulcolax (bisacodyl)) 10 mg OR DAILY 12 ea 0RF Coding Level of Care Code Global (66703) Diagnoses S/P panniculectomy Z98.890
[2023-09-29 12:02] VITALS: BP 144/67; PULSE 89; TEMP 35.7; O2SAT 100
== END 2023-09-29 12:35 | disposition home or self-care (01) ==
PROVIDERS: PCP Internal Medicine; Visit Provider Physician Assistant Surgical
DX: Z98.890 Other specified postprocedural states (principal)
CPT/HCPCS: 99024

== ENCOUNTER 2023-09-29 11:53 | Outpatient (REF) | payer MEDICAID, SELFPAY ==
[2023-09-29 12:43] LABS: MANUAL DIFF FLAG NO
[2023-09-29 13:30] LABS: Basophils Percent Auto 0.3 % (0-2); Eosinophils Absolute Auto 0.2 X10*3/uL (0.0-0.4); Eosinophils Percent Auto 3.1 % (0-4); Hemoglobin 9.6 g/dl (12.0-16.0); Imm Gran Abs Auto 0.02 X10*3/uL (0.00-0.03); Imm Gran Pct Auto 0.3 % (0.0-0.4); Lymphocytes Absolute Auto 1.6 X10*3/uL (1.2-4.9); Lymphocytes Percent Auto 23.2 % (20-40); Mean Corpuscular Hemoglobin 25.5 pg (27.0-33.0); Mean Corpuscular Volume 84.9 fL (80.0-98.0); Mean Platelet Volume 10.6 fL (9.4-12.3); Monocytes Absolute Auto 0.5 X10*3/uL (0.1-1.2); Monocytes Percent Auto 6.6 % (2-11); Neutrophils Absolute Auto 4.6 x10*3/uL (2.0-8.3); Neutrophils Percent Auto 66.5 % (45-73); Platelet Count 170 X10*3/uL (160-400); Red Blood Count 3.77 X10*6/uL (4.20-5.50); Red Cell Distribution Width 14.9 % (11.0-16.0); White Blood Count 6.9 X10*3/uL (4.8-10.8)
[2023-09-29 14:15] LABS: Alanine Aminotransferase 36 U/L (0-31); Albumin Level 3.7 g/dL (3.5-5.0); Alkaline Phosphatase 112 U/L (39-117); Anion Gap 11 (12-20); Aspartate Amino Transferase 34 U/L (5-31); Bilirubin Total 0.1 mg/dL (0.0-1.0); Blood Urea Nitrogen 20 mg/dL (9-16); Calcium 9.2 mg/dL (8.4-10.2); Carbon Dioxide 29 mmol/L (22-29); Chloride 104 mmol/L (96-108); Estimated Glomerular Filt Rate > 60; Glucose Random 76 mg/dL (60-115); Potassium 3.7 mmol/L (3.3-5.1); Sodium 140 mmol/L (135-145)
[2023-09-29 14:27] LABS: Alanine Aminotransferase 36 U/L (0-31); Albumin Level 3.8 g/dL (3.5-5.0); Alkaline Phosphatase 111 U/L (39-117); Anion Gap 10 (12-20); Aspartate Amino Transferase 31 U/L (5-31); Bilirubin Total 0.1 mg/dL (0.0-1.0); Blood Urea Nitrogen 20 mg/dL (9-16); Calcium 9.2 mg/dL (8.4-10.2); Carbon Dioxide 31 mmol/L (22-29); Chloride 103 mmol/L (96-108); Estimated Glomerular Filt Rate > 60; Ferritin 236 ng/mL (10-250); Glucose Random 77 mg/dL (60-115); Potassium 3.6 mmol/L (3.3-5.1); Sodium 140 mmol/L (135-145); Total Protein 6.9 g/dL (6.5-8.0)
== END 2023-09-29 11:54 | disposition home or self-care (01) ==
LOC: HO.LAB 11:53
PROVIDERS: Internal Medicine Medical Oncology; Absent Provider Internal Medicine; PCP Internal Medicine; Visit Provider Physician Assistant Surgical
DX: D64.9 Anemia, unspecified (principal); I89.0 Lymphedema, not elsewhere classified; R60.1 Generalized edema
CPT/HCPCS: 36415; 80053; 82728; 85025; 99212

== ENCOUNTER 2023-10-11 07:51 | Outpatient (AMB) | payer MEDICAID, SELFPAY ==
--- NOTE | 2023-10-11 07:55 | A.OFFVIS_ITS ---
Vital Signs 10/11/23 07:56 Height 5 ft 6 in Weight 183 lb 6 oz BMI 29.6 BP 114/64 Blood Pressure Location Rt brachial Position Sitting Respiration 16 Pulse 80 Pulse Source Palpation Intake Visit Reasons: Botox-Conf Intake Note: Pt presents to the office for Botox injections. Staffing Administrator Required: No Allergies amoxicillin Allergy (Severe, Verified 10/11/23 07:56) yeast infection, itching gabapentin Allergy (Severe, Verified 10/11/23 07:56) Swelling baclofen Allergy (Intermediate, Verified 10/11/23 07:56) Swelling, sob lamotrigine Allergy (Unknown, Verified 10/11/23 07:56) Swelling Meloxicam Allergy (Severe, Uncoded 10/11/23 07:56) swelling Medication List - Last Reconciled 10/11/23 by Yas Adam MD acetaminophen 650 mg PO Q6H PRN ascorbic acid (vitamin C) (Vitamin C) 500 mg PO DAILY blood pressure monitor Check BP bid and prn lightheadedness cetirizine (All Day Allergy (cetirizine)) 10 mg PO DAILY PRN cholecalciferol (vitamin D3) (Vitamin D3) 125 mcg PO DAILY 90 days docusate sodium (Colace) 100 mg PO DAILY escitalopram oxalate 5 mg PO DAILY ferrous sulfate 325 mg PO BID hydrochlorothiazide 50 mg PO QAM levetiracetam 500 mg PO BID magnesium oxide 400 mg PO DAILY midodrine 10 mg PO TID midodrine 10 mg PO TID multivitamin 1 tab PO QAM polyethylene glycol 3350 (Miralax) 17 grams PO DAILY riboflavin (vitamin B2) (Vitamin B-2) 200 mg (2 x 100 mg) PO BID 28 days zinc acetate (Galzin) 50 mg PO DAILY HPI Comments Details: ? 58y/o female comes for treatment of migraines with botox. How many migraine days prior to botox 25-30/month How long do the migraines last 1-2 days Intensity of migraine8-10 ER visits related to migraine 1-2 Effectiveness of botox from last two treatment(s) How many migraine days since receiving treatment:5-10/month Change? in intensity of migraine?decreased Change in frequency of migraine?decreased Change in use of acute medication for migraine?decreased Change in quality of life?improved ER visits related to migraine?none Explanation for any gaps in treatment- hospitalized for syncope, malnutrition Have at least three months elapsed since last treatment (Last botox date - frequency of injections) 07/07 ??? Most frequent reported adverse reactions following injection of botox for chronic migraine include neck pain (9%), headache(5%), eyelid ptosis(4%), migraine(4%), muscular weakness(4%), musculuskeletal stiffness(4%), bronchitis(3%), injection site pain (3%), musculoskeletal pain(3%), myalgia(3%), facial paresis(2%), HTN(2%) and muscle spasms(2%) were discussed in detail. ??? Botulinum toxin typeA 200units Lot no [id number] expiration November 2025 was diluted with 4 cc of normal saline . ??? Muscles injected- ??? Frontalis 4 sites ??? Procerus 1 site ??? Public Affairs Officer- 2 sites ??? Temporalis- 8 sites ??? Occipitalis- 6 sites ??? Cervical paraspinals- 4 sites ??? Trapezius- 6 sites- 5 units each ??? 5 units each in 31 site ??? Total use- 155units ??? Discarded-45units [facility] Medical History History of low back pain Hx of myocardial infarction (~11/2022) Hx of migraines CKD (chronic kidney disease) History of blood transfusion (~04/2023) Weakness of both legs History of seizures Major depressive disorder, recurrent Internal hernia Excess skin of upper extremity Lipoma History of lipoma Sleep apnea with use of continuous positive airway pressure (CPAP) Hypercholesterolemia Type 2 diabetes mellitus Anemia Lymphedema Migraines Anxiety Back pain Arthritis Carpal tunnel syndrome Body mass index (BMI) of 32.0-32.9 in adult Obesity (BMI 30-39.9) Intestinal malabsorption following gastrectomy H/O nephrolithotomy with removal of calculi Surgical History History of dental surgery (~06/2023) H/O hernia repair History of gastric surgery Hx of colonoscopy Hx of lumpectomy H/O cervical discectomy History of Zane-en-Y gastric bypass S/P carpal tunnel release Hx of section S/P knee replacement History of back surgery Family History Father No problems noted. Mother Arthritis Brother No problems noted. Brother No problems noted. Sister No problems noted. Sister No problems noted. Sister No problems noted. Sister No problems noted. Son No problems noted. Daughter No problems noted. 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) Alcohol intake: former Patient Tobacco Use Status: Former Tobacco user Quit Date: 2018 Tobacco use type: Cigarette Advance Directives Date on File: 07/04/21 service: No Current occupational status: disabled Physical Exam Vital Signs: Last Vital Signs Pulse 80 10/11/23 07:56 Resp 16 10/11/23 07:56 BP 114/64 10/11/23 07:56 BMI result Body Mass Index 29.6 Const General: healthy appearing, no acute distress and well developed Nutritional Appearance: well nourished Orientation/consciousness: patient oriented x3 Neuro General: patient oriented x3 Psych Appearance: grossly normal Mental Status: mental status grossly normal Office Procedures Botulinum toxin Injection 58063 - Migraine Procedure code (CPT) selection complete Office Meds onabotulinumtoxinA 200 unit solution for injection Performing Provider: Yas Adam MD Performing Location: [facility] Administered by: Yas Adam MD on 10/11/23 08:39 Dose Route Admin Location Dispensed Lot Number Expiration Date [facility] Drill Hand 155 unit subcut 200 units [id number] 11/12/25 4173-6173-06 [employer]/BOTOX Comments: see hpi Assessment & Plan Assessment & Plan (1) Chronic migraine without aura: Comment: w/ neuralgia component over left religion Code(s): G43.709 - Chronic migraine without aura, not intractable, without status migrainosus Category: Medical Plan Patient tolerated the procedure well she will call with any side effects Orders: Orders AMB Botulinum toxin Injection Today G43.709 - Chronic migraine without aura, not intractable, without status migrainosus Medications: New onabotulinumtoxinA 200 units subcut ONCE 1 ea 0RF migraine G43.709 - Chronic migraine without aura, not intractable, without status migrainosus Coding Level of Care Code Est Pt Level 1 (26621) Diagnoses Chronic migraine without aura G43.709 CPT Codes Botox Injection - Botox 3: 77548 - Migraine ([id number])
[2023-10-11 07:56] VITALS: BP 114/64; PULSE 80; RESP 16; BMI 29.6
== END 2023-10-11 08:32 | disposition home or self-care (01) ==
PROVIDERS: PCP Internal Medicine; Referring Provider Internal Medicine; Visit Provider Psychiatry & Neurology Neurology
DX: G43.709 Chronic migraine without aura, not intractable, without status migrainosus (principal)
CPT/HCPCS: 64615

== ENCOUNTER → 2023-10-11 07:51 | Outpatient (BNVA) | payer MEDICAID, SELFPAY | PROVIDERS: PCP Internal Medicine; Visit Provider Psychiatry & Neurology Neurology | DX: R60.1 Generalized edema (principal); R53.83 Other fatigue; G89.29 Other chronic pain; G43.709 Chronic migraine without aura, not intractable, without status migrainosus; Z48.817 Encounter for surgical aftercare following surgery on the skin and subcutaneous tissue; Z98.890 Other specified postprocedural states | CPT/HCPCS: 64615; 99211; 99212; J0585 ==

== ENCOUNTER 2023-10-11 12:10 | Outpatient (AMB) | payer MEDICAID, SELFPAY ==
--- NOTE | 2023-10-11 12:11 | A.OFFVIS_ITS ---
VS Expanded 10/11/23 12:14 BP 138/62 Blood Pressure Location Rt brachial Blood Pressure Position Sitting Pulse 95 Pulse Source Pulse Oximeter Temp 96.4 F L Temperature Source Tympanic Pulse Oximetry 96 Oxygen Delivery Method Room Air Intake Visit Reasons: (OV) PO Pannic/Brachio 08/11/23 Allergies amoxicillin Allergy (Severe, Verified 10/11/23 12:15) yeast infection, itching gabapentin Allergy (Severe, Verified 10/11/23 12:15) Swelling baclofen Allergy (Intermediate, Verified 10/11/23 12:15) Swelling, sob lamotrigine Allergy (Unknown, Verified 10/11/23 12:15) Swelling Meloxicam Allergy (Severe, Uncoded 10/11/23 12:15) swelling HPI Comments Details: Patient is a pleasant 58-year-old female who returns to the office today in follow-up. She is approximately 2 months post panniculectomy and brachioplasty performed on 08/11/2023. She has been dealing with multiple ongoing chronic medical problems including generalized edema, fatigue, chronic pain. She was seen in follow-up by her primary care physician and has been referred to different specialists including physical therapy. She is overall very happy with the results of her panniculectomy and brachioplasty. [facility] Medical History History of low back pain Hx of myocardial infarction (~11/2022) Hx of migraines CKD (chronic kidney disease) History of blood transfusion (~04/2023) Weakness of both legs History of seizures Major depressive disorder, recurrent Internal hernia Excess skin of upper extremity Lipoma History of lipoma Sleep apnea with use of continuous positive airway pressure (CPAP) Hypercholesterolemia Type 2 diabetes mellitus Anemia Lymphedema Migraines Anxiety Back pain Arthritis Carpal tunnel syndrome Body mass index (BMI) of 32.0-32.9 in adult Obesity (BMI 30-39.9) Intestinal malabsorption following gastrectomy H/O nephrolithotomy with removal of calculi Surgical History History of dental surgery (~06/2023) H/O hernia repair History of gastric surgery Hx of colonoscopy Hx of lumpectomy H/O cervical discectomy History of Zane-en-Y gastric bypass S/P carpal tunnel release Hx of section S/P knee replacement History of back surgery Family History Father No problems noted. Mother Arthritis Brother No problems noted. Brother No problems noted. Sister No problems noted. Sister No problems noted. Sister No problems noted. Sister No problems noted. Son No problems noted. Daughter No problems noted. 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 She will follow up with her primary care physician regarding her other ongoing medical issues. We will have her return to the office for an appointment in 1 month
[2023-10-11 12:14] VITALS: BP 138/62; PULSE 95; TEMP 35.8; O2SAT 96
== END 2023-10-11 12:27 | disposition home or self-care (01) ==
PROVIDERS: PCP Internal Medicine; Visit Provider Physician Assistant Surgical
DX: Z98.890 Other specified postprocedural states (principal)
CPT/HCPCS: 99024

== ENCOUNTER 2023-10-18 14:30 | Outpatient (REF) | payer MEDICAID, SELFPAY ==
--- NOTE | ~2023-10-18 | US_ITS ---
EXAMINATION: US SOFT TISSUE HEAD/NECK CLINICAL INFORMATION: Lump on right side of neck. COMPARISON: None available. TECHNIQUE: Linear transducer acuna-scale and color Doppler examination with attention to the right submandibular region in the area of concern. FINDINGS: 1.4 cm lymph node with fatty hilum in the area of palpable concern. US/US soft tiss head and/or neck IMPRESSION: Mildly enlarged, morphologically normal lymph node in the area of palpable concern consistent with a reactive lymph node. Clinical correlation and follow-up are necessary.
== END 2023-10-18 14:31 | disposition home or self-care (01) ==
LOC: HO.US 14:30
PROVIDERS: PCP Internal Medicine; Visit Provider Internal Medicine
DX: R22.1 Localized swelling, mass and lump, neck (principal)
CPT/HCPCS: 76536

== ENCOUNTER 2023-11-04 12:20 | Outpatient (REF) | payer MEDICAID, SELFPAY | END 2023-11-04 12:21 | disposition home or self-care (01) | LOC: HO.LAB 12:20 | PROVIDERS: PCP Internal Medicine; Visit Provider Internal Medicine Medical Oncology | DX: Z13.89 Encounter for screening for other disorder (principal) ==

== ENCOUNTER 2023-11-15 08:47 | Outpatient (AMB) | payer MEDICAID, SELFPAY ==
--- NOTE | 2023-11-15 08:50 | MHC.OFFVISWM ---
VS Expanded 11/15/23 09:01 BP 148/82 H Blood Pressure Location Rt brachial Blood Pressure Position Sitting Pulse 81 Pulse Source Pulse Oximeter Temp 97.1 F Temperature Source Temporal Artery Scan Pulse Oximetry 99 Oxygen Delivery Method Room Air Height 5 ft 6 in Weight 181 lb 3.2 oz BMI 29.2 Body Fat % 36.1 Body Fat Mass 65.2 Fat Free Mass 115.8 Visceral Fat Rating 9.0 Body Water % 45.3 Body Water Mass 82.0 Muscle Mass/Score 109.8 Basal Metabolic Rate/Score 1,568 Intake Visit Reasons: (OV) PO Pannic/Brachio 08/11/23 Allergies amoxicillin Allergy (Severe, Verified 11/15/23 08:53) yeast infection, itching gabapentin Allergy (Severe, Verified 11/15/23 08:53) Swelling baclofen Allergy (Intermediate, Verified 11/15/23 08:53) Swelling, sob lamotrigine Allergy (Unknown, Verified 11/15/23 08:53) Swelling Meloxicam Allergy (Severe, Uncoded 10/11/23 12:15) swelling HPI Comments Details: 58-year-old female returns to the office today in follow-up. She is approximately 3 months post panniculectomy and brachioplasty performed on 08/11/2023. She states that she is happy with the results of her skin removal surgery. She continues to have some intermittent numbness to the lateral aspect of her right arm however no noted complaints of decreased functionality. She states that she has been eating more than usual, potentially related to underlying stress and anxiety. [facility] Medical History History of low back pain Hx of myocardial infarction (~11/2022) Hx of migraines CKD (chronic kidney disease) History of blood transfusion (~04/2023) Weakness of both legs History of seizures Major depressive disorder, recurrent Internal hernia Excess skin of upper extremity Lipoma History of lipoma Sleep apnea with use of continuous positive airway pressure (CPAP) Hypercholesterolemia Type 2 diabetes mellitus Anemia Lymphedema Migraines Anxiety Back pain Arthritis Carpal tunnel syndrome Body mass index (BMI) of 32.0-32.9 in adult Obesity (BMI 30-39.9) Intestinal malabsorption following gastrectomy H/O nephrolithotomy with removal of calculi Surgical History History of dental surgery (~06/2023) H/O hernia repair History of gastric surgery Hx of colonoscopy Hx of lumpectomy H/O cervical discectomy History of Zane-en-Y gastric bypass S/P carpal tunnel release Hx of section S/P knee replacement History of back surgery Family History Father No problems noted. Mother Arthritis Brother No problems noted. Brother No problems noted. Sister No problems noted. Sister No problems noted. Sister No problems noted. Sister No problems noted. Son No problems noted. Daughter No problems noted. 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 Ensure plus shakes and a meal consisting of 5 forks of protein and 5 forks of vegetables. Recommend increasing exercise on the treadmill to a goal of 300 calories daily. Return to clinic 2 months. Additionally, add pantoprazole daily. Medications: New pantoprazole 40 mg PO DAILY 90 days 90 tabs 4RF
[2023-11-15 09:01] VITALS: BP 148/82; PULSE 81; TEMP 36.2; O2SAT 99; BMI 29.2
== END 2023-11-15 09:21 | disposition home or self-care (01) ==
PROVIDERS: PCP Internal Medicine; Visit Provider Physician Assistant Surgical
DX: L98.7 Excessive and redundant skin and subcutaneous tissue (principal); Z98.84 Bariatric surgery status
CPT/HCPCS: 99213

== ENCOUNTER → 2023-11-15 08:47 | Outpatient (BNVA) | payer MEDICAID, SELFPAY | PROVIDERS: PCP Internal Medicine; Visit Provider Physician Assistant Surgical | DX: Z48.817 Encounter for surgical aftercare following surgery on the skin and subcutaneous tissue (principal); Z98.84 Bariatric surgery status | CPT/HCPCS: 99212 ==

== ENCOUNTER 2023-11-18 10:20 | Outpatient (AMB) | payer MEDICAID, SELFPAY ==
--- NOTE | 2023-11-18 10:27 | MHC.OFFVIS ---
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 Patient states she is experiencing pain in both legs and feet that feel like pins and needles. Both legs swell. Pain has been persistant for 2 months. 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 She has an extensive medical history including back surgery gastric bypass and most recently panniculectomy and brachioplasty. At the current time she does note lower extremity pain right greater than left. She also reports that she has a prior history of a stroke. She now presents for vascular evaluation. [facility] Medical History History of low back pain Hx of myocardial infarction (~11/2022) Hx of migraines CKD (chronic kidney disease) History of blood transfusion (~04/2023) Weakness of both legs History of seizures Major depressive disorder, recurrent Internal hernia Excess skin of upper extremity Lipoma History of lipoma Sleep apnea with use of continuous positive airway pressure (CPAP) Hypercholesterolemia Type 2 diabetes mellitus Anemia Lymphedema Migraines Anxiety Back pain Arthritis Carpal tunnel syndrome Body mass index (BMI) of 32.0-32.9 in adult Obesity (BMI 30-39.9) Intestinal malabsorption following gastrectomy H/O nephrolithotomy with removal of calculi Surgical History History of dental surgery (~06/2023) H/O hernia repair History of gastric surgery Hx of colonoscopy Hx of lumpectomy H/O cervical discectomy History of Zane-en-Y gastric bypass S/P carpal tunnel release Hx of section S/P knee replacement History of back surgery Family History Father No problems noted. Mother Arthritis Brother No problems noted. Brother No problems noted. Sister No problems noted. Sister No problems noted. Sister No problems noted. Sister No problems noted. Son No problems noted. Daughter No problems noted. 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) Alcohol intake: former Patient Tobacco Use Status: Former Tobacco user Tobacco use type: Cigarette Advance Directives Date on File: 07/04/21 service: No Current occupational status: disabled Review of Systems Const All systems reviewed & are unremarkable except as noted in HPI and below Reports no additional complaints ENT Reports Normal hearing present Card Denies chest pain, Denies chest pain at rest, Denies chest pain with activity and Denies pedal edema Resp Denies cough GI Denies abdominal pain Musc Denies abnormal gait, Denies muscle cramps and Denies radiating pain into limb Skin/Breast Denies skin ulcer and Denies wounds Neuro Reports Normal hearing present and Denies abnormal gait Psych Reports no additional complaints Physical Exam Const General: cooperative, healthy appearing and comfortable Orientation/consciousness: oriented to person, oriented to place and oriented to time HEENT Head: Yes normal to inspection Neck Neck: Yes normal visual inspection Carotids: no bruits Chest Chest palpation & inspection: normal inspection of the chest Resp Effort & Inspection: normal respiratory effort and able to speak in complete sentences Auscultation: clear to auscultation bilaterally, no crackles, no rales, no rhonchi and no wheezes Cardio Other: Left side palpable DP Right side DP signal only Rate: regular rate Rhythm: regular rhythm Heart sounds: S1 normal heart sound present and S2 normal heart sound present Bruits: no carotid bruits Peripheral pulses: Peripheral pulses 2+ throughout GI Inspection: Yes normal to inspection Skin Wounds: no wounds Hair: normal Neuro General: oriented to person, oriented to place and oriented to time Cranial nerves: Yes CN's II-XII intact bilaterally and Yes Normal hearing present Cognition (Neuro): normal cognition Motor exam (neuro): 5/5 motor strength present throughout Extrem Other: venous exam: No significant superficial varicosities or spider telangiectasias, minimal edema General: No clubbing, No cyanosis and No edema Psych Appearance: grossly normal Mental Status: mental status grossly normal Speech and movement: Normal speech and movement present Assessment & Plan Assessment & Plan (1) PAD (peripheral artery disease): Code(s): I73.9 - Peripheral vascular disease, unspecified Category: Medical Plan: Unclear etiology of lower extremity pain. There may be a vascular component as there is a pulse differential between the 2 sides. In addition, she has a history of diabetes and lower extremity swelling. We will workup her arterial status 1st and then subsequently evaluate her for lymphedema. She will follow up with us after testing. Thank you for allowing us to assist in her care Orders: Orders US arterial duplex LE BI 1 Week I73.9 - Peripheral vascular disease, unspecified Coding Level of Care Code New Pt Level 4 (84131) Diagnoses PAD (peripheral artery disease) I73.9
== END 2023-11-18 10:51 | disposition home or self-care (01) ==
PROVIDERS: PCP Internal Medicine; Referring Provider Internal Medicine; Visit Provider Surgery Vascular Surgery
DX: I73.9 Peripheral vascular disease, unspecified (principal)
CPT/HCPCS: 99203

== ENCOUNTER → 2023-11-18 10:20 | Outpatient (BNVA) | payer MEDICAID, SELFPAY | PROVIDERS: PCP Internal Medicine; Visit Provider Surgery Vascular Surgery ==

== ENCOUNTER 2023-11-18 10:53 | Outpatient (REF) | payer MEDICAID, SELFPAY ==
[2023-11-18 11:12] LABS: MANUAL DIFF FLAG NO
[2023-11-18 11:57] LABS: Basophils Percent Auto 0.5 % (0-2); Eosinophils Absolute Auto 0.1 X10*3/uL (0.0-0.4); Eosinophils Percent Auto 2.2 % (0-4); Hematocrit 35.4 % (37.0-47.0); Hemoglobin 10.9 g/dl (12.0-16.0); Imm Gran Abs Auto 0.03 X10*3/uL (0.00-0.03); Imm Gran Pct Auto 0.5 % (0.0-0.4); Lymphocytes Absolute Auto 1.9 X10*3/uL (1.2-4.9); Lymphocytes Percent Auto 29.1 % (20-40); Mean Corpuscular HGB Conc 30.8 g/dl (31.0-35.0); Mean Corpuscular Hemoglobin 25.3 pg (27.0-33.0); Mean Corpuscular Volume 82.3 fL (80.0-98.0); Mean Platelet Volume 10.4 fL (9.4-12.3); Monocytes Absolute Auto 0.4 X10*3/uL (0.1-1.2); Monocytes Percent Auto 6.8 % (2-11); Neutrophils Percent Auto 60.9 % (45-73); Platelet Count 149 X10*3/uL (160-400); Red Cell Distribution Width 17.3 % (11.0-16.0); White Blood Count 6.5 X10*3/uL (4.8-10.8)
[2023-11-18 12:35] LABS: Alanine Aminotransferase 37 U/L (0-31); Alkaline Phosphatase 117 U/L (39-117); Anion Gap 9 (12-20); Aspartate Amino Transferase 29 U/L (5-31); Bilirubin Total 0.2 mg/dL (0.0-1.0); Blood Urea Nitrogen 13 mg/dL (9-16); Calcium 9.5 mg/dL (8.4-10.2); Carbon Dioxide 28 mmol/L (22-29); Chloride 108 mmol/L (96-108); Estimated Glomerular Filt Rate > 60; Glucose Random 76 mg/dL (60-115); Sodium 141 mmol/L (135-145); Total Protein 7.2 g/dL (6.5-8.0)
[2023-11-18 12:49] LABS: HBS Num1 0.58 mIU/mL (0-7.99); HBc Num1 0.08 S/CO (0.00-0.79); HBsAGNum1 0.21 S/CO (0.00-0.99); Hepatitis B Core Antibody Nonreactive (Nonreactive); Hepatitis B Surface Antigen Negative (Negative); ~Hepatitis B Surface Antibody NONREACTIVE (Nonreactive); ~Hepatitis C Antibody Nonreactive (Nonreactive)
[2023-11-20 15:34] LABS: HCV RNA PCR Qn <1.18 NOT DETECTED Log IU/mL (NOT DETECTED); HCV RNA PCR Qn <15 NOT DETECTED IU/mL (NOT DETECTED)
== END 2023-11-18 10:54 | disposition home or self-care (01) ==
LOC: HO.LAB 10:53
PROVIDERS: PCP Internal Medicine; Visit Provider Internal Medicine
DX: H26.8 Other specified cataract (principal); K59.04 Chronic idiopathic constipation; R74.01 Elevation of levels of liver transaminase levels; I73.9 Peripheral vascular disease, unspecified
CPT/HCPCS: 36415; 80053; 85025; 86704; 86706; 86803; 87340; 87522; 99202

== ENCOUNTER 2023-12-01 13:51 | Outpatient (REF) | payer MEDICAID, SELFPAY ==
--- NOTE | ~2023-12-01 | US_ITS ---
EXAMINATION: Noninvasive assessment of the bilateral lower extremities with ARTERIAL DUPLEX and ANKLE BRACHIAL INDICES (ABIs). CLINICAL INFORMATION: Peripheral vascular disease TECHNIQUE: Duplex Doppler techniques with waveform analysis and measurement of velocities in the bilateral common femoral, profunda femoris, superficial femoral, popliteal and tibial arteries were performed. Additionally, ankle pulse volume recordings, ankle pressure measurements and ankle brachial indices were obtained of the lower extremity arterial system bilaterally. The study was performed only at rest. COMPARISON: None FINDINGS: DIRECT DUPLEX DOPPLER FINDINGS: RIGHT LEG: Common femoral artery: 249 cm/s, phasicity: Triphasic Profunda femoris artery: 122 cm/s, phasicity: Triphasic Superficial femoral artery (proximal): 144 cm/s, phasicity: Triphasic Superficial femoral artery (mid): 116 cm/s, phasicity: Triphasic Superficial femoral artery (distal): 108 cm/s, phasicity: Triphasic Popliteal artery: 73 cm/s, phasicity: Triphasic Posterior tibial artery: 131 cm/s, phasicity: Triphasic Peroneal artery: Not visualized, possibly occluded Anterior tibial artery: 75 cm/s, phasicity: Biphasic Dorsalis pedis artery: 69 cm/s, phasicity:Biphasic LEFT LEG: Common femoral artery: 254 cm/s, phasicity: Triphasic Profunda femoris artery: 148 cm/s, phasicity: Triphasic Superficial femoral artery (proximal): 129 cm/s, phasicity: Triphasic Superficial femoral artery (mid): 130 cm/s, phasicity: Triphasic Superficial femoral artery (distal): 107 cm/s, phasicity: Triphasic Popliteal artery: 105 cm/s, phasicity: Triphasic1 Posterior tibial artery: 113 cm/s, phasicity: Triphasic Peroneal artery: 81 cm/s, phasicity: Triphasic Anterior tibial artery: 30 cm/s, phasicity: Monophasic Dorsalis pedis artery: 45 cm/s, phasicity: Biphasic ANKLE-BRACHIAL INDEX: Right: 1.16? Left: 1.17 ANKLE PRESSURES: Right: Brachial 134, PT 156, DP 144 Left: Brachial 132, PT?157, DP?157 ANKLE PVR WAVEFORMS: Right: Normal Left: Normal US/US arterial duplex BI w/ ALONZO IMPRESSION: Right leg: The peroneal artery is not visualized and is likely occluded. Moderate stenosis of the common femoral artery and mild stenosis of the profunda femoris artery and posterior tibial artery based on velocity criteria, all of which have preserved triphasic waveforms. Preserved flow in the anterior tibial and and dorsalis pedis arteries but with biphasic waveforms. Otherwise, normal ankle brachial index and PVR waveforms. Left leg: Moderate stenosis of the common femoral artery and mild stenosis of the profunda femoris and proximal and mid superficial femoral artery based on velocity criteria, all of which have preserved triphasic waveforms. Dampened velocity of the anterior tibial artery with a monophasic waveform and the dorsalis pedis artery with a biphasic waveform. Otherwise, normal ankle brachial index and PVR waveforms. ALONZO Reference: - >1.4 = calcified vessels - 0.9 - 1.4 = normal - no significant arterial disease - 0.7 - 0.89 = mild peripheral arterial disease - 0.51 - 0.69 = moderate peripheral arterial disease - ? 0.50 = severe peripheral arterial disease - < .30 = critical arterial disease
== END 2023-12-01 13:52 | disposition home or self-care (01) ==
LOC: HO.US 13:51
PROVIDERS: PCP Internal Medicine; Visit Provider Surgery Vascular Surgery
DX: I73.9 Peripheral vascular disease, unspecified (principal)
CPT/HCPCS: 93922; 93925

== ENCOUNTER 2023-12-10 11:45 | Outpatient (REF) | payer MEDICAID, SELFPAY ==
--- NOTE | ~2023-12-10 | XR_ITS ---
EXAMINATION: XR SOFT TISSUE NECK CLINICAL INDICATION: Enlarging node in the right cervical neck COMPARISON: None available. TECHNIQUE: 2 views of the soft tissue neck were obtained. FINDINGS: Soft tissue films of the neck demonstrate a normal larynx, pharynx and upper trachea. No appreciable radiopaque foreign body. Vertebral body heights and alignment are maintained. There is asymmetric soft tissue fullness of the right neck subcutaneous tissue with respect to the contralateral side. XR/XR soft tissue neck IMPRESSION: 1. There is asymmetric soft tissue fullness of the right neck subcutaneous tissue with respect to the contralateral side, which could be better evaluated with a contrast enhanced CT neck given provided clinical history of suspected lymphadenopathy. 2. No appreciable radiopaque foreign body.
== END 2023-12-10 11:46 | disposition home or self-care (01) ==
LOC: HO.XRAY 11:45
PROVIDERS: PCP Internal Medicine; Visit Provider Internal Medicine Medical Oncology
DX: R59.0 Localized enlarged lymph nodes (principal)
CPT/HCPCS: 70360

== ENCOUNTER 2023-12-17 13:00 | Outpatient (RCR) | payer MEDICAID, SELFPAY ==
--- NOTE | 2023-11-29 11:38 | MHC.PT.EP ---
[facility] [place] Office [place] [facility] [place] [facility] [address] [phone] F: [phone] F: [phone] F: [phone] F: [phone] Physical Therapy Plan of Care Date of Evaluation: 11/29/23 Date of Surgery: n/a Diagnosis: Sacrococcygeal disorders, not elsewhere classified Pain in right hip Assessment: Pt is a pleasant 58yo F with complex PMH including hx of IA, stroke, seizures, and cardiac arrythmia per her report who presents to PT with low back and R hip pain with radiating symptoms into RLE. She presents to PT with current impairments in pain, decreased hip ROM, decreased lumbar ROM, soft tissue restrictions, impaired posture, and impaired gait. She is limited functionally by Sitting>standing transitions, walking, bending, laying flat, prolonged standing, and getting in/out of bed. She is an excellent candidate for skilled PT in order to address current impairments to facilitate return to PLOF. She is recommended to be seen 2x/week for 4 weeks and will be reassessed at that time Frequency and Duration: The patient will be seen 2x/week for 4 weeks Short Term Goals: Pt will be I with HEP to promote self management of symptoms Pt will demonstrate improvements in postural awareness throughout the day Long-Term Goals: Pt will improve standing and walking tolerance > 15 min with pain < 4/10 Pt will demonstrate improvements in function as evidenced by statistically significant improvement in LEFI outcome measure Treatment Plan: Modalities to reduce pain, spasms and effusion. Manual therapy to restore motion and function. Therapeutic exercise to improve strength and flexibility. Neuromuscular re-education for posture and balance. Therapeutic activities to return to functional activities of daily living. Electronically signed by: Sonja Lynn, PT, DPT Please sign and return to therapist. Thank you for your referral.
--- NOTE | 2024-03-20 11:07 | MHC.PT.DC ---
[facility] [place] Office [place] Office [place] Office [address] Maria Elena Pimentel [address] [phone] F: [phone] F: [phone] F: [phone] F: [phone] Physical Therapy Discharge Report Diagnosis: Sacrococcygeal disorders, not elsewhere classified Pain in right hip Date of Surgery: n/a Date of Evaluation: 11/29/23 Date of Discharge: 03/20/24 Treatments to Date: 5 Cancellations to Date: 0 No Shows to Date: Discharge Status: Discharge Summary: Pt was seen for PT from 11/29/23-12/17/23. She is being D/C from skilled PT as she has not attended or called to reschedule in > 30 days. Pt current level of function unknown at this time From last PT note on 12/17/23 by NG: Advised pt to contact referring provider regarding next steps, does not feel she has benefitted from PT and continues with same persistent pain with only short term relief w/MH during therapy Electronically signed by: Sonja Lynn, PT, DPT Please sign and return to therapist. Thank you for your referral.
== END 2024-03-20 11:07 | disposition home or self-care (01) ==
LOC: HO.PT 13:00
PROVIDERS: PCP Internal Medicine; Visit Provider Nurse Practitioner Family
DX: M53.3 Sacrococcygeal disorders, not elsewhere classified (principal); M25.551 Pain in right hip
CPT/HCPCS: 97110; 97140; 97162

== ENCOUNTER 2023-12-30 10:18 | Outpatient (AMB) | payer MEDICAID, SELFPAY ==
[2023-12-30 10:19] VITALS: BMI 30.2
--- NOTE | 2023-12-30 10:19 | A.OFFVIS_ITS ---
Vital Signs 12/30/23 10:19 Height 5 ft 6 in Weight 187 lb BMI 30.2 Intake Visit Reasons: follow up s/p Arterial US 12/01/23 Intake Note: follow up Arterial US 12/01/23 for bilateral LE pain w/ swelling and numbness in bilateral feet. Pt states Right LE is worse than the Left LE since September 2023 Accompanied by: Self / Same As Patient Allergies amoxicillin Allergy (Severe, Verified 12/30/23 10:23) yeast infection, itching gabapentin Allergy (Severe, Verified 12/30/23 10:23) Swelling baclofen Allergy (Intermediate, Verified 12/30/23 10:23) Swelling, sob lamotrigine Allergy (Unknown, Verified 12/30/23 10:23) Swelling Meloxicam Allergy (Severe, Uncoded 12/30/23 10:23) swelling HPI HPI follow up s/p Arterial US 12/01/23: Details: Very pleasant 58-year-old female presents for follow-up regarding lower extremit y pain. She has an extensive medical history including for prior back surgeries, gastric bypass and most recently panniculectomy with brachioplasty. She reports that she has persistent lower extremity pain and in particular it is her feet. She now presents for follow-up with noninvasive arterial testing. [facility] Medical History History of low back pain Hx of myocardial infarction (~11/2022) Hx of migraines CKD (chronic kidney disease) History of blood transfusion (~04/2023) Weakness of both legs History of seizures Major depressive disorder, recurrent Internal hernia Excess skin of upper extremity Lipoma History of lipoma Sleep apnea with use of continuous positive airway pressure (CPAP) Hypercholesterolemia Type 2 diabetes mellitus Anemia Lymphedema Migraines Anxiety Back pain Arthritis Carpal tunnel syndrome Body mass index (BMI) of 32.0-32.9 in adult Obesity (BMI 30-39.9) Intestinal malabsorption following gastrectomy H/O nephrolithotomy with removal of calculi Surgical History History of dental surgery (~06/2023) H/O hernia repair History of gastric surgery Hx of colonoscopy Hx of lumpectomy H/O cervical discectomy History of Zane-en-Y gastric bypass S/P carpal tunnel release Hx of section S/P knee replacement History of back surgery Family History Father No problems noted. Mother Arthritis Brother No problems noted. Brother No problems noted. Sister No problems noted. Sister No problems noted. Sister No problems noted. Sister No problems noted. Son No problems noted. Daughter No problems noted. 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) Alcohol intake: former Patient Tobacco Use Status: Former Tobacco user Tobacco use type: Cigarette Advance Directives Date on File: 07/04/21 service: No Current occupational status: disabled Review of Systems Const All systems reviewed & are unremarkable except as noted in HPI and below Reports no additional complaints ENT Reports Normal hearing present Card Denies chest pain, Denies chest pain at rest, Denies chest pain with activity and Denies pedal edema Resp Denies cough GI Denies abdominal pain Musc Denies abnormal gait, Denies muscle cramps and Denies radiating pain into limb Skin/Breast Denies skin ulcer and Denies wounds Neuro Reports Normal hearing present and Denies abnormal gait Psych Reports no additional complaints Physical Exam Vital Signs: BMI result Body Mass Index 30.2 Const General: cooperative, healthy appearing and comfortable Orientation/consciousness: oriented to person, oriented to place and oriented to time HEENT Head: Yes normal to inspection Neck Neck: Yes normal visual inspection Carotids: no bruits Chest Chest palpation & inspection: normal inspection of the chest Resp Effort & Inspection: normal respiratory effort and able to speak in complete sentences Auscultation: clear to auscultation bilaterally, no crackles, no rales, no rhonchi and no wheezes Cardio Rate: regular rate Rhythm: regular rhythm Heart sounds: S1 normal heart sound present and S2 normal heart sound present Bruits: no carotid bruits Peripheral pulses: Peripheral pulses 2+ throughout GI Inspection: Yes normal to inspection Skin Wounds: no wounds Hair: normal Neuro General: oriented to person, oriented to place and oriented to time Cranial nerves: Yes CN's II-XII intact bilaterally and Yes Normal hearing present Cognition (Neuro): normal cognition Motor exam (neuro): 5/5 motor strength present throughout Extrem Other: venous exam: No significant superficial varicosities or spider telangiectasias, minimal edema General: No clubbing, No cyanosis and No edema Psych Appearance: grossly normal Mental Status: mental status grossly normal Speech and movement: Normal speech and movement present Results Reviewed Results Reviewed: Noninvasive arterial testing dated 12/01/2023 demonstrates ALONZO on the right of 1.16 and on the left of 1.17. Written report and images were reviewed. Assessment & Plan Assessment & Plan (1) Pain in both lower extremities: Code(s): M79.604 - Pain in right leg; M79.605 - Pain in left leg Category: Medical Plan: In short patient complains of pain of bilateral lower extremities. At the current time her arterial testing was within normal limits. In addition she has mild lower extremity swelling but it appears to be relatively well controlled. I do believe that the majority of her issues are neurogenic in nature. She does have multiple prior back surgeries and she is scheduled for a follow-up evaluation with NATHAN this February. She will follow up with us on an as-needed basis. Thank you for allowing us to assist in her care. If there are any questions or concerns please do not hesitate to contact us. Coding Level of Care Code Est Pt Level 4 (85464) Diagnoses Pain in both lower extremities M79.604; M79.605
== END 2023-12-30 10:45 | disposition home or self-care (01) ==
PROVIDERS: PCP Internal Medicine; Visit Provider Surgery Vascular Surgery
DX: M79.604 Pain in right leg (principal); M79.605 Pain in left leg
CPT/HCPCS: 99214

== ENCOUNTER → 2023-12-30 10:18 | Outpatient (BNVA) | payer MEDICAID, SELFPAY | PROVIDERS: PCP Internal Medicine; Visit Provider Surgery Vascular Surgery | DX: M79.604 Pain in right leg (principal); M79.605 Pain in left leg | CPT/HCPCS: 99212 ==

== ENCOUNTER 2024-01-07 08:35 | Outpatient (REF) | payer MEDICAID, SELFPAY ==
[2024-01-07 10:27] LABS: Alanine Aminotransferase 49 U/L (0-31); Alkaline Phosphatase 145 U/L (39-117); Anion Gap 14 (12-20); Aspartate Amino Transferase 35 U/L (5-31); Bilirubin Total 0.2 mg/dL (0.0-1.0); Blood Urea Nitrogen 24 mg/dL (9-16); Calcium 8.8 mg/dL (8.4-10.2); Carbon Dioxide 29 mmol/L (22-29); Chloride 100 mmol/L (96-108); Estimated Glomerular Filt Rate > 60; Glucose Random 88 mg/dL (60-115); Potassium 4.2 mmol/L (3.3-5.1); Sodium 139 mmol/L (135-145); Total Protein 7.3 g/dL (6.5-8.0)
[2024-01-07 10:43] LABS: Ferritin 181 ng/mL (10-250)
[2024-01-07 11:34] LABS: Folate 15.5 ng/mL (> or = 4.0); Vitamin B12 566 pg/mL (200-900)
== END 2024-01-07 08:36 | disposition home or self-care (01) ==
LOC: HO.LAB 08:35
PROVIDERS: PCP Internal Medicine; Visit Provider Internal Medicine
DX: D64.89 Other specified anemias (principal); E46 Unspecified protein-calorie malnutrition; E87.6 Hypokalemia; Z68.31 Body mass index [BMI] 31.0-31.9, adult
CPT/HCPCS: 36415; 80053; 82607; 82728; 82746

== ENCOUNTER 2024-01-10 09:00 | Outpatient (AMB) | payer MEDICAID, SELFPAY ==
[2024-01-10 09:13] VITALS: BMI 30.2
--- NOTE | 2024-01-10 09:13 | MHC.OFFVIS ---
Vital Signs 01/10/24 09:13 Height 5 ft 6 in Weight 187 lb BMI 30.2 Intake Visit Reasons: Botox - Conf Intake Note: Patient presents for botox injection Allergies amoxicillin Allergy (Severe, Verified 01/10/24 09:21) yeast infection, itching gabapentin Allergy (Severe, Verified 01/10/24 09:21) Swelling baclofen Allergy (Intermediate, Verified 01/10/24 09:21) Swelling, sob lamotrigine Allergy (Unknown, Verified 01/10/24 09:21) Swelling Meloxicam Allergy (Severe, Uncoded 01/10/24 09:21) swelling Medication List - Last Reconciled 01/10/24 by Yas Adam MD acetaminophen 650 mg PO Q6H PRN ascorbic acid (vitamin C) (Vitamin C) 500 mg PO DAILY blood pressure monitor Check BP bid and prn lightheadedness cetirizine (All Day Allergy (cetirizine)) 10 mg PO DAILY PRN cholecalciferol (vitamin D3) (Vitamin D3) 125 mcg PO DAILY 90 days dicyclomine mg PO DAILY docusate sodium (Colace) 100 mg PO DAILY escitalopram oxalate 5 mg PO DAILY ferrous sulfate 325 mg PO BID levetiracetam 500 mg PO BID linaclotide (Linzess) 145 mcg PO DAILY lurasidone mg PO magnesium oxide 400 mg PO DAILY midodrine 10 mg PO TID midodrine 10 mg PO TID multivitamin 1 tab PO QAM nortriptyline 25 mg PO BID pantoprazole 40 mg PO DAILY 90 days polyethylene glycol 3350 (Miralax) 17 grams PO DAILY potassium chloride ER 10 mEq PO DAILY riboflavin (vitamin B2) (Vitamin B-2) 200 mg (2 x 100 mg) PO BID 28 days trazodone mg PO valacyclovir 1,000 mg PO DAILY zinc acetate (Galzin) 50 mg PO DAILY HPI Comments Details: ? 58y/o female comes for treatment of migraines with botox. How many migraine days prior to botox 25-30/month How long do the migraines last 1-2 days Intensity of migraine8-10 ER visits related to migraine 1-2 Effectiveness of botox from last two treatment(s) How many migraine days since receiving treatment:5-10/month Change? in intensity of migraine?decreased Change in frequency of migraine?decreased Change in use of acute medication for migraine?decreased Change in quality of life?improved ER visits related to migraine?none Explanation for any gaps in treatment- hospitalized for syncope, malnutrition Have at least three months elapsed since last treatment (Last botox date - frequency of injections) 07/07 ??? Most frequent reported adverse reactions following injection of botox for chronic migraine include neck pain (9%), headache(5%), eyelid ptosis(4%), migraine(4%), muscular weakness(4%), musculuskeletal stiffness(4%), bronchitis(3%), injection site pain (3%), musculoskeletal pain(3%), myalgia(3%), facial paresis(2%), HTN(2%) and muscle spasms(2%) were discussed in detail. ??? Botulinum toxin typeA 200units Lot no [id number] Jan 2026 was diluted with 4 cc of normal saline . ??? Muscles injected- ??? Frontalis 4 sites ??? Procerus 1 site ??? Inspector Watch Assembly- 2 sites ??? Temporalis- 8 sites ??? Occipitalis- 6 sites ??? Cervical paraspinals- 4 sites ??? Trapezius- 6 sites- 5 units each ??? 5 units each in 31 site ??? Total use- 155units ??? Discarded-45units [facility] Medical History (Updated 01/10/24 @ 15:35 by Yas Adam MD) Chronic migraine without aura, intractable, without status migrainosus History of low back pain Hx of myocardial infarction (~11/2022) Hx of migraines CKD (chronic kidney disease) History of blood transfusion (~04/2023) Weakness of both legs History of seizures Major depressive disorder, recurrent Internal hernia Excess skin of upper extremity Lipoma History of lipoma Sleep apnea with use of continuous positive airway pressure (CPAP) Hypercholesterolemia Type 2 diabetes mellitus Anemia Lymphedema Migraines Anxiety Back pain Arthritis Carpal tunnel syndrome Body mass index (BMI) of 32.0-32.9 in adult Obesity (BMI 30-39.9) Intestinal malabsorption following gastrectomy H/O nephrolithotomy with removal of calculi Surgical History History of dental surgery (~06/2023) H/O hernia repair History of gastric surgery Hx of colonoscopy Hx of lumpectomy H/O cervical discectomy History of Zane-en-Y gastric bypass S/P carpal tunnel release Hx of section S/P knee replacement History of back surgery Family History Father No problems noted. Mother Arthritis Brother No problems noted. Brother No problems noted. Sister No problems noted. Sister No problems noted. Sister No problems noted. Sister No problems noted. Son No problems noted. Daughter No problems noted. 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) Alcohol intake: former Patient Tobacco Use Status: Former Tobacco user Tobacco use type: Cigarette Advance Directives Date on File: 07/04/21 service: No Current occupational status: disabled Physical Exam Vital Signs: BMI result Body Mass Index 30.2 Const General: healthy appearing, no acute distress and well developed Nutritional Appearance: well nourished Orientation/consciousness: patient oriented x3 Neuro General: patient oriented x3 Psych Appearance: grossly normal Mental Status: mental status grossly normal Office Procedures Botulinum toxin Injection 96681 - Migraine Procedure code (CPT) selection complete Office Meds onabotulinumtoxinA 200 unit solution for injection Performing Provider: Yas Adam MD Performing Location: [facility] Administered by: Yas Adam MD on 01/10/24 15:37 Dose Route Admin Location Dispensed Lot Number Expiration Date [facility] Design Draftsman 185 unit subcut 200 units [id number] 01/13/24 2420-8494-38 [employer]ERGAN/BOTOX Comments: see hpi Assessment & Plan Assessment & Plan (1) Chronic migraine without aura: Comment: w/ neuralgia component over left baptism Code(s): G43.709 - Chronic migraine without aura, not intractable, without status migrainosus Category: Medical (2) Chronic migraine without aura, intractable, without status migrainosus: Code(s): G43.719 - Chronic migraine without aura, intractable, without status migrainosus Category: Medical Plan Patient tolerated the procedure well she will call with any side effects Orders: Orders AMB Botulinum toxin Injection Today G43.719 - Chronic migraine without aura, intractable, without status migrainosus Medications: New onabotulinumtoxinA 200 units subcut ONCE 1 ea 0RF migraine G43.719 - Chronic migraine without aura, intractable, without status migrainosus Coding Level of Care Code Est Pt Level 1 (63654) Diagnoses Chronic migraine without aura G43.709 Chronic migraine without aura, intractable, without status migrainosus G43.719 CPT Codes Botox Injection - Botox 3: 71686 - Migraine ([id number])
== END 2024-01-10 09:45 | disposition home or self-care (01) ==
PROVIDERS: PCP Internal Medicine; Visit Provider Psychiatry & Neurology Neurology
DX: G43.719 Chronic migraine without aura, intractable, without status migrainosus (principal)
CPT/HCPCS: 64615

== ENCOUNTER → 2024-01-10 09:00 | Outpatient (BNVA) | payer MEDICAID, SELFPAY | PROVIDERS: PCP Internal Medicine; Visit Provider Psychiatry & Neurology Neurology | DX: G43.E09 Chronic migraine with aura, not intractable, without status migrainosus (principal) | CPT/HCPCS: 64615; 99211; J0585 ==

== ENCOUNTER 2024-01-17 10:32 | Outpatient (AMB) | payer MEDICAID, SELFPAY ==
--- NOTE | 2024-01-17 10:38 | A.OFFVIS_ITS ---
VS Expanded 01/17/24 10:48 BP 124/58 L Blood Pressure Location Rt brachial Blood Pressure Position Sitting Pulse 74 Pulse Source Pulse Oximeter Temp 96.7 F L Temperature Source Tympanic Pulse Oximetry 94 Oxygen Delivery Method Room Air Height 5 ft 6 in Weight 190 lb 12.8 oz BMI 30.8 Body Fat % 41.5 Body Fat Mass 79.2 Fat Free Mass 111.6 Visceral Fat Rating 10.0 Body Water % 41.5 Body Water Mass 79.2 Muscle Mass/Score 105.8 Basal Metabolic Rate/Score 1,540 Intake Visit Reasons: (OV) PO Pannic/Brachio 08/11/23 Allergies amoxicillin Allergy (Severe, Verified 01/17/24 10:50) yeast infection, itching gabapentin Allergy (Severe, Verified 01/17/24 10:50) Swelling baclofen Allergy (Intermediate, Verified 01/17/24 10:50) Swelling, sob lamotrigine Allergy (Unknown, Verified 01/17/24 10:50) Swelling Meloxicam Allergy (Severe, Uncoded 01/17/24 10:50) swelling HPI Comments Details: Patient is a 58-year-old female who returns to the office today in follow-up. She is status post panniculectomy and brachioplasty performed on 08/11/2023 and sleeve gastrectomy performed on 04/05/2019. Weight today is 190.8 lb with a BMI of 30.8. She states she is having increased back pain and knee pain. She is scheduled to f/u with [facility] tomorrow for her knee pain and she is seeing a back specialist in February. Meal plan: chava tea w honey and mushroom coffee in the morning meal at 2 pm salad not measuring 5 pm meal bowl of rice with meat not measuring. drinking 100 oz water exercising treadmill and bike, 250 calories 3-4 days per week. [facility] Medical History (Updated 01/17/24 @ 11:28 by KINDRA Bonilla) Obesity (BMI 30-39.9) Chronic migraine without aura, intractable, without status migrainosus History of low back pain Hx of myocardial infarction (~11/2022) Hx of migraines CKD (chronic kidney disease) History of blood transfusion (~04/2023) Weakness of both legs History of seizures Major depressive disorder, recurrent Internal hernia Excess skin of upper extremity Lipoma History of lipoma Sleep apnea with use of continuous positive airway pressure (CPAP) Hypercholesterolemia Type 2 diabetes mellitus Anemia Lymphedema Migraines Anxiety Back pain Arthritis Carpal tunnel syndrome Body mass index (BMI) of 32.0-32.9 in adult Intestinal malabsorption following gastrectomy H/O nephrolithotomy with removal of calculi Surgical History History of dental surgery (~06/2023) H/O hernia repair History of gastric surgery Hx of colonoscopy Hx of lumpectomy H/O cervical discectomy History of Zane-en-Y gastric bypass S/P carpal tunnel release Hx of section S/P knee replacement History of back surgery Family History Father No problems noted. Mother Arthritis Brother No problems noted. Brother No problems noted. Sister No problems noted. Sister No problems noted. Sister No problems noted. Sister No problems noted. Son No problems noted. Daughter No problems noted. 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) Alcohol intake: former Patient Tobacco Use Status: Former Tobacco user Tobacco use type: Cigarette Advance Directives Date on File: 07/04/21 service: No Current occupational status: disabled Physical Exam Vital Signs: Last Vital Signs Temp 96.7 F L 01/17/24 10:48 Pulse 74 01/17/24 10:48 BP 124/58 L 01/17/24 10:48 Pulse Ox 94 01/17/24 10:48 Oxygen Delivery Method Room Air 01/17/24 10:48 BMI result Body Mass Index 30.8 Const General: healthy appearing and no acute distress Resp Effort & Inspection: normal respiratory effort Auscultation: clear to auscultation bilaterally Cardio Rate: regular rate Rhythm: regular rhythm GI Auscultation: normal bowel sounds Extrem General: Yes normal to inspection Assessment & Plan Assessment & Plan (1) Obesity (BMI 30-39.9): Code(s): E66.9 - Obesity, unspecified Category: Medical Plan: Discussed the importance of recognizing weight gain in the setting of no structured meal plan and not measuring food quantity. Ensure max ready to drink, 6 oz, mixed with 6 oz of unsweetened almond milk at 8-10 and 12-2 Meal at 5 pm with 6 forks protein and 6 forks vegetables Swedish yogurt at 7-8 p.m. Encouraged to use the exercise facility in her building 5 days a week with a goal of burning 400 calories per session. We will have her return to the office in approximately 6 weeks. I have encouraged her to send me her weight measurements weekly and text with any questions or concerns
[2024-01-17 10:48] VITALS: BP 124/58; PULSE 74; TEMP 35.9; O2SAT 94; BMI 30.8
== END 2024-01-17 11:18 | disposition home or self-care (01) ==
LOC: HO.HBS 10:32
PROVIDERS: PCP Internal Medicine; Visit Provider Physician Assistant Surgical
DX: E66.9 Obesity, unspecified (principal)
CPT/HCPCS: 99213

== ENCOUNTER → 2024-01-17 10:32 | Outpatient (BNVA) | payer MEDICAID, SELFPAY | PROVIDERS: PCP Internal Medicine; Visit Provider Physician Assistant Surgical | DX: E66.9 Obesity, unspecified (principal); M54.9 Dorsalgia, unspecified; M25.561 Pain in right knee; M25.562 Pain in left knee; Z71.3 Dietary counseling and surveillance; Z68.30 Body mass index [BMI] 30.0-30.9, adult; Z98.890 Other specified postprocedural states; Z98.84 Bariatric surgery status | CPT/HCPCS: 99212 ==

== ENCOUNTER 2024-01-17 11:36 | Emergency (ER) | payer MEDICAID, SELFPAY ==
--- NOTE | ~2024-01-17 | XR_ITS ---
EXAMINATION: XR HAND/WRIST, LEFT CLINICAL INFORMATION: Left wrist pain. COMPARISON: None available. TECHNIQUE: 4 views of the left wrist. The patient did not remove ring from third digit. FINDINGS: Radiopaque marker placed by technologist to indicate the area of concern as indicated by the patient along the radial aspect of the wrist. Diffuse demineralization. Moderate degenerative changes in the first carpometacarpal joint. Ulnar minus variance. Narrowing of the radiocarpal space. Minimal degenerative changes in multiple IP joints. XR/XR hand wrist LT IMPRESSION: 1. Moderate degenerative changes in the first carpometacarpal joint. 2. Ulnar minus variance. 3. Diffuse demineralization. No acute displaced fracture appreciated. 4. Recommend followup imaging in 10-14 days if fracture is suspected. This study was presented today, January 17, 2024, for interpretation. Stat results provided at this time as requested by referring provider.
[2024-01-17 12:02] VITALS: BP 130/64; PULSE 77; RESP 16; TEMP 37; O2SAT 100; BMI 30.7
--- NOTE | 2024-01-17 12:07 | ED_ITS ---
HPI - General Adult General Chief complaint: Extremity Problem Stated complaint: wrist pain Time Seen by Provider: 01/17/24 12:11 Source: patient Mode of arrival: ambulatory Limitations: no limitations History of Present Illness ED Provider: Audi Perry PA-C HPI narrative: 58-year-old right hand dominant female with history of obesity, migraines, peripheral arterial disease, obesity s/p gastric bypass, TRUNG who presents to the ER for evaluation of left hand and wrist pain for the last 2 weeks. She denies any injury or trauma. She reports the pain is associated with numbness and tingling and it involves the radial side of her wrist and her thumb. it is worse with any movement or palpation. she denies any redness or warmth to the wrist or hand. MD complaint: left wrist pain Onset (ago): week(s) Location: left and upper extremity Radiation: proximal Severity: moderate Severity scale (1-10): 7 Quality: aching Pain Consistency: constant Relieving factors: none Exacerbating factors: movement Associated symptoms: denies other symptoms Treatments prior to arrival: none Related Data Home Medications ?Medication ?Instructions ?Recorded ?Confirmed magnesium oxide 400 mg (241.3 mg 400 mg PO DAILY 06/03/22 01/10/24 magnesium) tablet levetiracetam 500 mg tablet 500 mg PO BID 12/28/22 01/10/24 cetirizine 10 mg tablet (All Day 10 mg PO DAILY PRN Allergy Symptoms 05/21/23 01/10/24 Allergy (cetirizine)) ferrous sulfate 325 mg (65 mg 325 mg PO BID 05/21/23 01/10/24 iron) tablet escitalopram oxalate 5 mg tablet 5 mg PO DAILY 09/07/23 01/10/24 dicyclomine 10 mg capsule mg PO DAILY 12/30/23 01/10/24 linaclotide 145 mcg capsule 145 mcg PO DAILY 12/30/23 01/10/24 (Linzess) lurasidone 120 mg tablet mg PO 12/30/23 01/10/24 nortriptyline 25 mg capsule 25 mg PO BID 12/30/23 01/10/24 potassium chloride 10 mEq 10 meq PO DAILY 12/30/23 01/10/24 capsule,extended release trazodone 150 mg tablet mg PO 12/30/23 01/10/24 valacyclovir 1 gram tablet 1,000 mg PO DAILY 12/30/23 01/10/24 Previous Rx's ?Medication ?Instructions ?Recorded blood pressure monitor #1 ea 03/04/22 cholecalciferol (vitamin D3) 125 125 mcg PO DAILY 90 days #90 tabs 09/29/23 mcg (5,000 unit) tablet (Vitamin D3) docusate sodium 100 mg capsule 100 mg PO DAILY #90 caps 01/11/24 (Colace) pantoprazole 40 mg tablet,delayed 40 mg PO DAILY 90 days #90 tabs 01/17/24 release sennosides 8.6 mg tablet (Natural 17.2 mg (2 x 8.6 mg) PO BEDTIME 01/17/24 Senna Laxative) constipation #60 tabs Allergies Allergy/AdvReac Type Severity Reaction Status Date / Time amoxicillin Allergy Severe yeast Verified 01/17/24 13:07 infection, itching gabapentin Allergy Severe Swelling Verified 01/17/24 13:07 baclofen Allergy Intermediate Swelling, Verified 01/17/24 13:07 sob lamotrigine Allergy Unknown Swelling Verified 01/17/24 13:07 Meloxicam Allergy Severe swelling Uncoded 01/17/24 13:07 Review of Systems Review of Systems: Yes all other systems are reviewed and are negative [facility] Past Medical History Medical History (Updated 01/17/24 @ 21:02 by EMILY Irene-) Obesity (BMI 30-39.9) Chronic migraine without aura, intractable, without status migrainosus History of low back pain Hx of myocardial infarction (~11/2022) Hx of migraines CKD (chronic kidney disease) History of blood transfusion (~04/2023) Weakness of both legs History of seizures Major depressive disorder, recurrent Internal hernia Excess skin of upper extremity Lipoma History of lipoma Sleep apnea with use of continuous positive airway pressure (CPAP) Hypercholesterolemia Type 2 diabetes mellitus Anemia Lymphedema Migraines Anxiety Back pain Arthritis Carpal tunnel syndrome Body mass index (BMI) of 32.0-32.9 in adult Intestinal malabsorption following gastrectomy H/O nephrolithotomy with removal of calculi Surgical History (Updated 01/17/24 @ 13:07 by KEIKO Sauceda) Hx of cataract surgery History of dental surgery (~06/2023) H/O hernia repair History of gastric surgery Hx of colonoscopy Hx of lumpectomy H/O cervical discectomy History of Zane-en-Y gastric bypass S/P carpal tunnel release Hx of section S/P knee replacement History of back surgery Family History Family History Father No problems noted. Mother Arthritis Brother No problems noted. Brother No problems noted. Sister No problems noted. Sister No problems noted. Sister No problems noted. Sister No problems noted. Son No problems noted. Daughter No problems noted. 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 Oriented X3. No acute distress. HEENT: normal inspection CVS: Normal heart rate and rhythm. Pulses normal. Respiratory: No respiratory distress. Skin: Skin warm and dry. Normal skin color. Normal skin turgor. No rashes. Extremities: normal inspection of the left hand and wrist, no deformity, no swelling. significantly limited ROM of the left wrist and thumb. Tenderness of the MCP of the thumb. No snuffbox tenderness. Tenderness of the radial aspect of the wrist. Able to adduct the thumb to the 2nd and 3rd digit but not the 4th and 5th digit. Neuro: Oriented X 3. No motor deficit. No sensory deficit. Course Course Course Narrative: RME: DOne by KINDRA Goldman. [age] year female history of carpal tunnel syndrome and left wrist presents to ED for left rib pain without any injury or trauma. Positive Tinel sign. Positive for wrist tenderness on palpation. Vascular neuro exam intact. Motor exam limited due to pain. Was sent for x-ray to rule out fracture. Procedures Orthopedic Splinting/Casting Injury #1: Side: left Upper Extremity Injury Location: wrist and hand Upper Extremity Immobilizer: thumb spica Medical Decision Making Medical Decision Making MDM Narrative: 58-year-old female presenting to the ER for evaluation of nontraumatic left wrist pain on the radial aspect of the wrist, involving the base of the thumb. Worse with range of motion and palpation. No preceding injury. She has numbness and tingling associated with this as well. Most likely nerve entrapment. X-ray today showing some demineralization and degeneration of the thumb MCP joint. No evidence of acute fracture. Patient a thumb spica splint for immobilization and patient feels improvement in the stability of her wrist and thumb. Will refer to orthopedics/hand for further evaluation and treatment. Patient will start Tylenol for pain control. Unable to use NSAIDs due to her gastric sleeve history. Stable for discharge home. Differential Diagnosis Differential Diagnoses: The differential diagnosis associated with the presentation includes Carpal tunnel syndrome, osteoarthritis, UCL injury, rheumatoid arthritis, gout, ganglion cyst Independent Interpretation I performed an independent interpretation of an: Plain X-Ray Interpretation: no acute fracture appreciated, agree w radiology read Radiology Impression Discussion of test interpretation with radiology: I have reviewed the radiologist's reading. Radiologist Impression: XR/XR hand wrist LT IMPRESSION: 1. Moderate degenerative changes in the first carpometacarpal joint. 2. Ulnar minus variance. 3. Diffuse demineralization. No acute displaced fracture appreciated. 4. Recommend followup imaging in 10-14 days if fracture is suspected. External Record Review External record reviewed: Prior outpatient labs and Prior outpatient radiology Prescription Management I considered prescription management with: Pain Medication Critical Care Time Critical Care Time Critical Care Time: No Discharge Plan Discharge Clinical Impression: Left wrist pain Patient Disposition: Home, Self-Care Instructions: Wrist Injury (ED), Warm Compress or Soak (ED) Additional Instructions: wear the provided splint at all times unless showering or bathing take tylenol 1000 mg every 6-8 hours around the clock use ice to the area several times per day recommend following up with Orthopedics for further evaluation and treatment - call for an appointment XR/XR hand wrist LT IMPRESSION: 1. Moderate degenerative changes in the first carpometacarpal joint. 2. Ulnar minus variance. 3. Diffuse demineralization. No acute displaced fracture appreciated. 4. Recommend followup imaging in 10-14 days if fracture is suspected. Prescriptions: No Action cholecalciferol (vitamin D3) [Vitamin D3] 125 mcg (5,000 unit) tablet 125 mcg PO DAILY 90 Days Qty: 90 2RF docusate sodium [Colace] 100 mg capsule 100 mg PO DAILY Qty: 90 0RF magnesium oxide 400 mg (241.3 mg magnesium) tablet 400 mg PO DAILY (DME) blood pressure monitor Kit See Rx Instructions .Route Qty: 1 0RF Rx Instructions: Check BP bid and prn lightheadedness levetiracetam 500 mg tablet 500 mg PO BID cetirizine [All Day Allergy (cetirizine)] 10 mg tablet 10 mg PO DAILY PRN (Reason: Allergy Symptoms) ferrous sulfate 325 mg (65 mg iron) tablet 325 mg PO BID sennosides [Natural Senna Laxative] 8.6 mg tablet 17.2 mg PO BEDTIME Qty: 60 5RF pantoprazole 40 mg tablet,delayed release (DR/EC) 40 mg PO DAILY 90 Days Qty: 90 4RF escitalopram oxalate 5 mg tablet 5 mg PO DAILY valacyclovir 1 gram tablet 1,000 mg PO DAILY dicyclomine 10 mg capsule PO DAILY lurasidone 120 mg tablet PO potassium chloride 10 mEq capsule, extended release 10 meq PO DAILY Linzess 145 mcg capsule 145 mcg PO DAILY trazodone 150 mg tablet PO nortriptyline 25 mg capsule 25 mg PO BID Referrals: [facility] [place] [facility] [Provider Group] ( XR/XR hand wrist LT IMPRESSION: 1. Moderate degenerative changes in the first carpometacarpal joint. 2. Ulnar minus variance. 3. Diffuse demineralization. No acute displaced fracture appreciated. 4. Recommend followup imaging in 10-14 days if fracture is suspected.) Carri Reynoso MD [Primary Care Provider] - Interventions: ED Discharge Assessment Last Done: 01/17/24 14:14 Discharge Date/Time: 01/17/24 14:15 Print Language: Turkmen
[2024-01-17 14:14] VITALS: BP 130/64; PULSE 77; RESP 16; TEMP 37; O2SAT 100
== END 2024-01-17 14:15 | disposition home or self-care (01) ==
PROVIDERS: Emergency Provider Emergency Medicine; PCP Internal Medicine
DX: M25.532 Pain in left wrist (principal); G47.33 Obstructive sleep apnea (adult) (pediatric); Z87.891 Personal history of nicotine dependence; Z79.899 Other long term (current) drug therapy
CPT/HCPCS: 29125; 73110; 73130; 99212; 99282; 99283; 99284

== ENCOUNTER 2024-01-17 13:02 | Outpatient (AMB) | payer MEDICAID, SELFPAY ==
--- NOTE | 2024-01-17 13:05 | MHC.OFFVIS ---
Vital Signs 01/17/24 13:10 Height 5 ft 6 in Weight 190 lb BMI 30.7 BP 113/59 L Blood Pressure Location Lt brachial Position Sitting Pulse 67 Intake Visit Reasons: 6 month follow up Intake Note: Olga presents in the office as a 6 month follow up. CC: She states that she is not having any concerns at this time. Workers Compensation Attorney Required: No Allergies amoxicillin Allergy (Severe, Verified 01/17/24 13:07) yeast infection, itching gabapentin Allergy (Severe, Verified 01/17/24 13:07) Swelling baclofen Allergy (Intermediate, Verified 01/17/24 13:07) Swelling, sob lamotrigine Allergy (Unknown, Verified 01/17/24 13:07) Swelling Meloxicam Allergy (Severe, Uncoded 01/17/24 13:07) swelling HPI HPI 6 month follow up: Details: LAST VISIT: Constipation GERD (gastroesophageal reflux disease) Status post colonoscopy Plan Patient was encouraged to increase fluid intake and activity to promote better bowel motility. Patient can start taking MiraLax again. She will take 2 stool softeners in the evening. Continue pantoprazole daily. Avoid dietary triggers and late night snacking. Staying upright for minimum 3 hours after meals discussed with patient. Colonoscopy will be repeated in on 2 to years, sooner if clinically indicated. I will see her in 6 months, sooner on as needed basis. Patient is agreeable to this plan and verbalizes understanding of instructions. She was given the opportunity to ask questions and all questions answered. Medications New polyethylene glycol 3350 17 grams PO DAILY 510 grams 2RF docusate sodium 200 mg (2 x 100 mg) PO BEDTIME 180 caps 3RF K59.00 TODAY'S VISIT Patient is here today for follow-up. Patient reports that she has been doing better. Symptoms of acid reflux suppressed with pantoprazole. Patient states that she has been following up with bariatric services and doing well. Patient reports that she is moving her bowels with MiraLax and stool softeners, however she feels like she does not empty them completely. Patient denies melena, hematochezia, unintentional weight loss or ribbon like stools. Denies any dyspepsia, dysphagia or odynophagia. Patient denies any other GI concerning symptoms. [facility] Medical History (Updated 01/17/24 @ 21:02 by Virginia Sharpe, [facility]) Obesity (BMI 30-39.9) Chronic migraine without aura, intractable, without status migrainosus History of low back pain Hx of myocardial infarction (~11/2022) Hx of migraines CKD (chronic kidney disease) History of blood transfusion (~04/2023) Weakness of both legs History of seizures Major depressive disorder, recurrent Internal hernia Excess skin of upper extremity Lipoma History of lipoma Sleep apnea with use of continuous positive airway pressure (CPAP) Hypercholesterolemia Type 2 diabetes mellitus Anemia Lymphedema Migraines Anxiety Back pain Arthritis Carpal tunnel syndrome Body mass index (BMI) of 32.0-32.9 in adult Intestinal malabsorption following gastrectomy H/O nephrolithotomy with removal of calculi Surgical History (Updated 01/17/24 @ 13:07 by KEIKO Sauceda) Hx of cataract surgery History of dental surgery (~06/2023) H/O hernia repair History of gastric surgery Hx of colonoscopy Hx of lumpectomy H/O cervical discectomy History of Zane-en-Y gastric bypass S/P carpal tunnel release Hx of section S/P knee replacement History of back surgery Family History Father No problems noted. Mother Arthritis Brother No problems noted. Brother No problems noted. Sister No problems noted. Sister No problems noted. Sister No problems noted. Sister No problems noted. Son No problems noted. Daughter No problems noted. 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) Alcohol intake: former Patient Tobacco Use Status: Former Tobacco user Tobacco use type: Cigarette Advance Directives Date on File: 07/04/21 service: No Current occupational status: disabled Review of Systems Const Denies weight gain and Denies weight loss ENT Reports no additional complaints, Denies dysphagia and Denies odynophagia Card Reports no additional complaints Resp Reports no additional complaints GI Denies abdominal pain, Denies belching, Denies melena, Denies bloating, Denies change in bowel habits, Reports constipation, Denies dysphagia, Denies excessive flatus, Denies dyspepsia, Denies heartburn, Denies diarrhea, Denies loose stools, Denies nausea, Denies odynophagia and Denies vomiting Reports no additional complaints Musc Reports no additional complaints Neuro Reports no additional complaints Psych Reports no additional complaints Endo Reports no additional complaints Physical Exam Vital Signs: Last Vital Signs Pulse 67 01/17/24 13:10 BP 113/59 L 01/17/24 13:10 BMI result Body Mass Index 30.7 Const Other: Ambulating using a wheeled walker General: healthy appearing and no acute distress Nutritional Appearance: obese Orientation/consciousness: patient oriented x3 Resp Effort & Inspection: normal respiratory effort, able to speak in complete sentences, no tracheal deviation and symmetric chest movement Auscultation: clear to auscultation bilaterally Cardio Rate: regular rate GI Inspection: Yes normal to inspection and No distended Palpation (GI): Soft to palpation, not firm, nontender and No hepatosplenomegaly present Auscultation: normal bowel sounds General: Yes no CVA tenderness Back/Spine/Pelvis Back: no CVA tenderness Skin General skin exam: elasticity normal, turgor normal and dry skin Neuro General: patient oriented x3 Psych Appearance: grossly normal Mental Status: mental status grossly normal Assessment & Plan Assessment & Plan (1) Constipation: Code(s): K59.00 - Constipation, unspecified Category: Medical Qualifiers: Constipation type: slow transit constipation Qualified Code(s): K59.01 - Slow transit constipation (2) GERD (gastroesophageal reflux disease): Code(s): K21.9 - Gastro-esophageal reflux disease without esophagitis Qualifiers: Esophagitis presence: esophagitis presence not specified Qualified Code(s): K21.9 - Gastro-esophageal reflux disease without esophagitis Plan Continue pantoprazole. Avoid dietary triggers and late night snacking. Staying upright for minimum 3 hours after meals discussed with patient. Patient will start taking senna. Increase fluid intake and activity to promote better bowel motility. Follow-up in the office in 6 months, sooner on as needed basis. She is agreeable to this plan and verbalizes understanding of instructions. She was given the opportunity to ask questions and all questions answered. Thank you for allowing me to participate in her care Medications: New sennosides (Natural Senna Laxative) 17.2 mg (2 x 8.6 mg) PO BEDTIME 60 tabs 5RF constipation K59.00 - Constipation, unspecified Refilled pantoprazole 40 mg PO DAILY 90 days 90 tabs 4RF Coding Level of Care Code Est Pt Level 3 (90229) Diagnoses Slow transit constipation K59.01 Constipation type: slow transit constipation Gastroesophageal reflux disease, unspecified whether esophagitis present K21.9 Esophagitis presence: esophagitis presence not specified Time Spent (min) 25 Comment 15 minutes spent with patient and additional 10 minutes spent reviewing her records
[2024-01-17 13:10] VITALS: BP 113/59; PULSE 67; BMI 30.7
== END 2024-01-17 13:23 | disposition home or self-care (01) ==
PROVIDERS: PCP Internal Medicine; Visit Provider Nurse Practitioner Family
DX: K59.01 Slow transit constipation (principal); K21.9 Gastro-esophageal reflux disease without esophagitis
CPT/HCPCS: 99213

== ENCOUNTER 2024-01-26 10:01 | Outpatient (AMB) | payer MEDICAID, SELFPAY ==
--- NOTE | 2024-01-26 10:22 | A.OFFVIS_ITS ---
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 She was seen at [facility] ED on 01/17/24 where x-rays were done and she was placed in a thumb spica splint for immobilization until her follow up with orthopedics. Patient reports she uses the thumb splint everyday and only removes it when showering. S he expresses numbness and tingling that starts in her thumb and radiates mid way down her arm. Describes pain as sharp and stabbing at all times in her entire thumb.She expresses 8.5 out of 10 on the pain scale. She is unable to lift, gripping, grasp, or do any kind of movement with the left hand without immediate pain. She says the splint does not provide her with relief. Tried Tylenol for relief and says it did not really help her with pain. Denies recent injury. Hx of CTR of B/L hands roughly around 1997. 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 The patient reports that, since that time, she has been experiencing very significant discomfort throughout the L wrist. Patient reports that the focus of her pain is the base of the L thumb and the radial wrist. Patient was previously evaluated in the ED, where X rays were taken, revealing mild to moderate degenerative changes of the basal joint of the L thumb. Patient was provided a thumb spica splint at that time. At this time, the patient reports that her pain has not improved at all. Denies any numbness or tingling in the L hand. Patient inquires about any potential treatment options available at this time. [facility] Medical History Obesity (BMI 30-39.9) Chronic migraine without aura, intractable, without status migrainosus History of low back pain Hx of myocardial infarction (~11/2022) Hx of migraines CKD (chronic kidney disease) History of blood transfusion (~04/2023) Weakness of both legs History of seizures Major depressive disorder, recurrent Internal hernia Excess skin of upper extremity Lipoma History of lipoma Sleep apnea with use of continuous positive airway pressure (CPAP) Hypercholesterolemia Type 2 diabetes mellitus Anemia Lymphedema Migraines Anxiety Back pain Arthritis Carpal tunnel syndrome Body mass index (BMI) of 32.0-32.9 in adult Intestinal malabsorption following gastrectomy H/O nephrolithotomy with removal of calculi Surgical History Hx of cataract surgery History of dental surgery (~06/2023) H/O hernia repair History of gastric surgery Hx of colonoscopy Hx of lumpectomy H/O cervical discectomy History of Zane-en-Y gastric bypass S/P carpal tunnel release Hx of section S/P knee replacement History of back surgery Family History Father No problems noted. Mother Arthritis Brother No problems noted. Brother No problems noted. Sister No problems noted. Sister No problems noted. Sister No problems noted. Sister No problems noted. Son No problems noted. Daughter No problems noted. 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, COURTROOM REPORTER Caregiver staying overnight: No Housing: House Are you a primary care management associate to a significant other at home: No Do you presently have visiting nurse or other home services: Yes (COURTROOM REPORTER 4 hrs/day) Alcohol intake: former Patient Tobacco Use Status: Former Tobacco user Tobacco use type: Cigarette Advance Directives Date on File: 07/04/21 service: No Current occupational status: disabled Review of Systems Const All systems reviewed & are unremarkable except as noted in HPI and below Physical Exam Vital Signs: BMI result Body Mass Index 30.7 Extrem Other: Patient is alert, oriented, and in no acute distress. Neuro: Median, ulnar, radial nerves motor and sensory intact and sensation is normal to the tips of all digits. Vascular: Cap refill brisk Pain: Patient reports severe tenderness to palpation of the basal joint of the L thumb, as well as over the radial styloid of the L wrist. Mild tenderness to palpation about the entirety of the L wrist, but far less severe ROM: With encouragement, the patient is able to flex and extend the thumb fully, but it is very painful ROM of all other digits full and intact Skin: No lacerations or abrasions. General: No ecchymosis, erythema, or evidence of infection. Positive Zeny on the left Positive CMC grind on the left Psych: Appears grossly normal Affect normal Attitude cooperative Office Procedures Joint Injection/Aspiration Joint Injection/Aspiration Details: Left basal joint injection Primary Site: left thumb Injected: 40 mg of, DepoMedrol, with 1 mL of and 1% plain lidocaine Procedure: The patient tolerated the procedure well, but had some pain with the injection and there was some relief with the local anesthesia Coding 52866 - Small Joint Procedure code (CPT) selection complete Results Reviewed Results Reviewed: X-rays obtained in the emergency department on 01/17/2024 and independently reviewed by me, Colton Harris PA-C, demonstrate [id number] degenerative changes at the basal joint of the left thumb. Assessment & Plan Assessment & Plan (1) Arthritis of carpometacarpal (CMC) joint of left thumb: Code(s): M18.12 - Unilateral primary osteoarthritis of first carpometacarpal joint, left hand Category: Medical (2) Pain of left thumb: Code(s): M79.645 - Pain in left finger(s) Category: Medical Plan 1. Left basal joint arthritis, mild to moderate 2. Left wrist and thumb pain The risks and benefits of a steroid injection including but not limited to risk of damage to blood vessels, nerve, tendon, infection, skin bleaching, persistent or worsening pain, and failure to improve symptoms were discussed with the patient and they wish to proceed with the steroid injection. Once consent was obtained the skin over the dorsum of the left basal joint was sterilely prepped. The joint was then injected with a combination of 1 mL of (40 mg/ml} Depo-Medrol and 1% plain Lidocaine. The patient appears to have tolerated the procedure well and with no complications. SHe had good early relief before leaving clinic today. SHe knows that they may not have another steroid injection into this joint for least 4 months. Patient is educated that, there is an index of suspicion that she may have de Quervain tenosynovitis as well, however the patient reported that CMC grind on the left was far more painful than Zeny test, so we started with a basal joint injection today. If this problem is still bothering her at evaluation 6-8 weeks, we can explore injection for de Quervain tenosynovitis. Patient is also provided with a comfort cool thumb brace at this time, and is told she should wear this with daytime activities, but not while sleeping, bathing, or at rest, to help to alleviate some of her pain. Patient will follow-up in 6-8 weeks for re-evaluation of left wrist and thumb pain, sooner with any acute concerns Coding Level of Care Code New Pt Level 3 (06906) Diagnoses Arthritis of carpometacarpal (CMC) joint of left thumb M18.12 Pain of left thumb M79.645 CPT Codes Coding - 81027 - Small joint: 52919 - Small Joint ([id number])
[2024-01-26 10:24] VITALS: BMI 30.7
== END 2024-01-26 11:27 | disposition home or self-care (01) ==
PROVIDERS: PCP Internal Medicine
DX: M18.12 Unilateral primary osteoarthritis of first carpometacarpal joint, left hand (principal); M79.645 Pain in left finger(s)
CPT/HCPCS: 20600; 99203

== ENCOUNTER → 2024-01-26 10:01 | Outpatient (BNVA) | payer MEDICAID, SELFPAY | PROVIDERS: PCP Internal Medicine | DX: M18.12 Unilateral primary osteoarthritis of first carpometacarpal joint, left hand (principal); M79.645 Pain in left finger(s) | CPT/HCPCS: 20600; 99212; J1010 ==

== ENCOUNTER 2024-03-13 10:54 | Outpatient (AMB) | payer MEDICAID, SELFPAY ==
--- NOTE | 2024-03-13 11:02 | A.OFFVIS_ITS ---
Vital Signs 03/13/24 11:06 Height 5 ft 6 in Weight 200 lb BMI 32.3 Handedness Right Intake Visit Reasons: OV-f/u Left Wrist Pain Intake Note: Olga is a 58 year old right hand dominant female who presents today for a follow up visit of her arthritis of CMC joint of left thumb. s/p Left basal injection on 01/26/24. Patient reports she did not find adequate relief and was in a lot of pain a few days after the injection. She says she is now experiencing locking of her left thumb. She says when her thumb locks she notices her index finger also begins to stiffen up and she can barely move it. She massages her thumb for relief when this occurs. She has been wearing her comfort cool daily except for sleep but she says she still feels pain. Allergies amoxicillin Allergy (Severe, Verified 03/13/24 11:06) yeast infection, itching gabapentin Allergy (Severe, Verified 03/13/24 11:06) Swelling baclofen Allergy (Intermediate, Verified 03/13/24 11:06) Swelling, sob lamotrigine Allergy (Unknown, Verified 03/13/24 11:06) Swelling Meloxicam Allergy (Severe, Uncoded 03/13/24 11:06) swelling HPI HPI OV-f/u Left Wrist Pain: Details: Patient is a 58-year-old female who presents for follow-up evaluation of left wrist and hand pain. The patient reports that the basal joint injection she got into her left 1st CMC joint was effective at controlling her pain in that joint, but she is still experiencing significant discomfort from her left-sided de Quervain tenosynovitis. Patient would like to explore a de Quervain injection in the left wrist today. Patient reports that she has been wearing her comfort cool thumb spica brace with daytime activities, with limited relief. Patient denies any numbness or tingling in the left hand. No other acute complaints or concerns at this time. [facility] Medical History Obesity (BMI 30-39.9) Chronic migraine without aura, intractable, without status migrainosus History of low back pain Hx of myocardial infarction (~11/2022) Hx of migraines CKD (chronic kidney disease) History of blood transfusion (~04/2023) Weakness of both legs History of seizures Major depressive disorder, recurrent Internal hernia Excess skin of upper extremity Lipoma History of lipoma Sleep apnea with use of continuous positive airway pressure (CPAP) Hypercholesterolemia Type 2 diabetes mellitus Anemia Lymphedema Migraines Anxiety Back pain Arthritis Carpal tunnel syndrome Body mass index (BMI) of 32.0-32.9 in adult Intestinal malabsorption following gastrectomy H/O nephrolithotomy with removal of calculi Surgical History Hx of cataract surgery History of dental surgery (~06/2023) H/O hernia repair History of gastric surgery Hx of colonoscopy Hx of lumpectomy H/O cervical discectomy History of Zane-en-Y gastric bypass S/P carpal tunnel release Hx of section S/P knee replacement History of back surgery Family History Father No problems noted. Mother Arthritis Brother No problems noted. Brother No problems noted. Sister No problems noted. Sister No problems noted. Sister No problems noted. Sister No problems noted. Son No problems noted. Daughter No problems noted. 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, STOVE BOTTOM WORKER Caregiver staying overnight: No Housing: House Are you a primary chronic care nurse to a significant other at home: No Do you presently have visiting nurse or other home services: Yes (STOVE BOTTOM WORKER 4 hrs/day) Alcohol intake: former Patient Tobacco Use Status: Former Tobacco user Tobacco use type: Cigarette Advance Directives Date on File: 07/04/21 service: No Current occupational status: disabled Review of Systems Const All systems reviewed & are unremarkable except as noted in HPI and below Physical Exam Vital Signs: BMI result Body Mass Index 32.3 Extrem Other: Patient is alert, oriented, and in no acute distress. Neuro: Normal sensation of the tips of all digits of the left hand at this time Vascular: Cap refill brisk Pain: Tenderness to palpation of the radial styloid of the left wrist Minimal tenderness to CMC grind or palpation of the basal joint of the left thumb No tenderness to palpation of the DRUJ, ulnar styloid ROM: Patient is able to make a closed fist and extend all digits of the left hand fully Skin: No lacerations or abrasions. General: No ecchymosis, erythema, or evidence of infection. Positive Zeny test in the left Psych: Appears grossly normal Affect normal Attitude cooperative Office Procedures Tendon Injection Tendon Injection Details: Left de Quervain tenosynovitis injection [id number]-[id number] Tendon Sheath Injection All charges added?: Procedure code (CPT) selection complete Results Reviewed Results Reviewed: X-rays obtained in the office at previous visit and independently reviewed by me, Colton Harris PA-C, demonstrate mild basal joint arthritis of the left 1st CMC joint. Assessment & Plan Assessment & Plan (1) De Quervain's tenosynovitis, left: Code(s): M65.4 - Radial styloid tenosynovitis [de Quervain] Category: Medical Plan 1. De Quervain tenosynovitis, left Patient is educated about this condition Patient is educated about the treatment options available, would like to proceed with steroid injection at this time Injection #1: The risks and benefits of a steroid injection including but not limited to risk of damage to blood vessels, nerves, tendons, infection, skin bleaching, failure to improve symptoms, increased pain, and possible need for further injections or other intervention were discussed with the patient and the patient wishes to proceed with the steroid injection. Once consent was obtained, I sterilely prepped the area over the 1st dorsal compartment of the left thumb. I then injected the 1st dorsal compartment with a combination of 1 mL of dexamethasone (4mg/ml), and 1% lidocaine. The patient tolerated the procedure well with no complications and good resolution of their symptoms prior to leaving clinic. If the patient continues to have pain 6-8 weeks following this injection, they may call to schedule appointment to discuss alternative treatment options Follow-up as needed Coding Level of Care Code Est Pt Level 3 (45224) Diagnoses De Quervain's tenosynovitis, left M65.4 CPT Codes Tendon Injection - Tendon Injection 1: [id number]-Slqjjy Tendon Sheath Injection ([id number])
[2024-03-13 11:06] VITALS: BMI 32.3
== END 2024-03-13 11:58 | disposition home or self-care (01) ==
LOC: HO.HOS 10:54
PROVIDERS: PCP Internal Medicine
DX: M65.4 Radial styloid tenosynovitis [de Quervain] (principal)
CPT/HCPCS: 20550; 99213

== ENCOUNTER → 2024-03-13 10:54 | Outpatient (BNVA) | payer MEDICAID, SELFPAY | PROVIDERS: PCP Internal Medicine | DX: M65.4 Radial styloid tenosynovitis [de Quervain] (principal) | CPT/HCPCS: 20550; 99212; J1100 ==

== ENCOUNTER 2024-03-16 13:56 | Outpatient (REF) | payer MEDICAID, SELFPAY ==
--- NOTE | ~2024-03-16 | CT_ITS ---
EXAMINATION: CT soft tissue neck w IV con CLINICAL INFORMATION: Cervical adenopathy COMPARISON: None TECHNIQUE: Following the administration of 60 mL of Omnipaque 350 intravenous contrast, helical imaging was performed in the axial plane with generation of coronal and sagittal reformatted images. This CT examination was performed using dose optimization techniques as appropriate, variously including the following: * Automated exposure control * Adjustment of mA and/or kV according to patient size (this includes techniques or standardized protocols for targeted exams where dose is matched to indication/reason for exam; i.e. extremities or head) Use of iterative reconstruction technique DLP: 292 mGy-cm FINDINGS: Sequela of chronic sinusitis with wall thickening of the left greater than right maxillary/ethmoid/sphenoid sinuses. Extensive mucoperiosteal thickening of the left maxillary/ethmoid/sphenoid sinuses. Mild mucoperiosteal thickening in the right maxillary sinus. The mastoid air cells are well-aerated. There are no destructive lesions within the osseous structures. There are prominent though not pathologically enlarged right-sided lymph nodes at levels 6, 3, 1B, and 2. There are prominent though not pathologically enlarged left level 2 lymph nodes at levels. The parotid glands are homogeneous in attenuation. Submandibular glands are normal. No contour abnormality or pathologic enhancement is seen within the oral cavity or pharyngeal mucosal space. No retropharyngeal fluid collection is seen. The parapharyngeal fat is preserved. The carotid sheath vasculature opacify normally. No extra mucosal soft tissue mass or fluid collection is seen. No suspicious cervical lymph nodes are identified by size criteria, enhancement characteristics, or morphology. The thyroid gland appears normal. The imaged portions of the brain appear within normal limits. Bilateral lens extraction. Otherwise, normal appearance of the orbits. The partially imaged lung apices are within normal limits. CT/CT soft tissue neck w IV con IMPRESSION: 1. Prominent though not pathologically enlarged bilateral cervical lymph nodes, right greater than left. 2. Sequela of chronic sinusitis with extensive mucoperiosteal thickening of the left greater than right maxillary/ethmoid/sphenoid sinuses. Electronically signed by: Shi Sultana DO 03/17/2024 08:39 AM EDT
[2024-03-16] MEDS: iohexoL 350 MG/ML 100 ML INFUS..BTL IV (14:56)
== END 2024-03-16 13:57 | disposition home or self-care (01) ==
LOC: HO.CT 13:56
PROVIDERS: PCP Internal Medicine; Visit Provider Internal Medicine Medical Oncology
DX: R59.0 Localized enlarged lymph nodes (principal)
CPT/HCPCS: 70491; Q9967

== ENCOUNTER 2024-03-23 10:21 | Outpatient (AMB) | payer MEDICAID, SELFPAY ==
--- NOTE | 2024-03-23 10:56 | A.OFFVIS_ITS ---
Vital Signs 03/23/24 11:04 Height 5 ft 6 in Weight 208 lb 2 oz BMI 33.6 BP 115/72 Blood Pressure Location Lt brachial Position Sitting Pulse 76 Pulse Source Pulse Oximeter Pulse Oximetry (%) 96 Oxygen Delivery Method Room Air Intake Visit Reasons: urgent follow up Intake Note: Patient presents for a urgent follow up. [employer] Required: No Accompanied by: Self / Same As Patient Allergies amoxicillin Allergy (Severe, Verified 03/23/24 11:07) yeast infection, itching gabapentin Allergy (Severe, Verified 03/23/24 11:07) Swelling baclofen Allergy (Intermediate, Verified 03/23/24 11:07) Swelling, sob lamotrigine Allergy (Unknown, Verified 03/23/24 11:07) Swelling Meloxicam Allergy (Severe, Uncoded 03/13/24 11:06) swelling Medication List - Last Reconciled 03/23/24 by Yas Adam MD blood pressure monitor Check BP bid and prn lightheadedness celecoxib 200 mg PO DAILY cetirizine (All Day Allergy (cetirizine)) 10 mg PO DAILY PRN cholecalciferol (vitamin D3) (Vitamin D3) 125 mcg PO DAILY 90 days cyanocobalamin (vitamin B-12) 200 mcg PO DAILY cyclobenzaprine 10 mg PO BEDTIME docusate sodium (Colace) 100 mg PO DAILY escitalopram oxalate 5 mg PO DAILY levetiracetam 500 mg PO BID linaclotide (Linzess) 145 mcg PO DAILY lurasidone 120 mg PO DAILY nortriptyline 25 mg PO BID pantoprazole 40 mg PO DAILY 90 days sennosides (Natural Senna Laxative) 17.2 mg (2 x 8.6 mg) PO BEDTIME tramadol 25 mg PO Q6H PRN MDD 4 tabs trazodone 150 mg PO ONCE valacyclovir 1,000 mg PO DAILY HPI Comments Details: 58y/o female comes for an urgent follow up. she was doing well with botox - her last injection was on January 09 but for past 2 weeks she has been having daily headaches.Her scalp is very sensitive, pounding pressure like pain mostly on the right side with light sensitivity, noise sensitvity, nausea . she tried tramadol but did not help.No enck pain Her next botox is scheduled for Apr 17 she denies neck pain or any intercurrent illness. [facility] Medical History (Updated 03/23/24 @ 11:26 by Yas Adam MD) Cervicalgia Obesity (BMI 30-39.9) Chronic migraine without aura, intractable, without status migrainosus History of low back pain Hx of myocardial infarction (~11/2022) Hx of migraines CKD (chronic kidney disease) History of blood transfusion (~04/2023) Weakness of both legs History of seizures Major depressive disorder, recurrent Internal hernia Excess skin of upper extremity Lipoma History of lipoma Sleep apnea with use of continuous positive airway pressure (CPAP) Hypercholesterolemia Type 2 diabetes mellitus Anemia Lymphedema Migraines Anxiety Back pain Arthritis Carpal tunnel syndrome Body mass index (BMI) of 32.0-32.9 in adult Intestinal malabsorption following gastrectomy H/O nephrolithotomy with removal of calculi Surgical History Hx of cataract surgery History of dental surgery (~06/2023) H/O hernia repair History of gastric surgery Hx of colonoscopy Hx of lumpectomy H/O cervical discectomy History of Zane-en-Y gastric bypass S/P carpal tunnel release Hx of section S/P knee replacement History of back surgery Family History Father No problems noted. Mother Arthritis Brother No problems noted. Brother No problems noted. Sister No problems noted. Sister No problems noted. Sister No problems noted. Sister No problems noted. Son No problems noted. Daughter No problems noted. 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) Alcohol intake: former Patient Tobacco Use Status: Former Tobacco user Tobacco use type: Cigarette Advance Directives Date on File: 07/04/21 service: No Current occupational status: disabled Physical Exam Vital Signs: Last Vital Signs Pulse 76 03/23/24 11:04 BP 115/72 03/23/24 11:04 Pulse Ox 96 03/23/24 11:04 Oxygen Delivery Method Room Air 03/23/24 11:04 BMI result Body Mass Index 33.6 Const General: healthy appearing, no acute distress and well developed Nutritional Appearance: well nourished Orientation/consciousness: patient oriented x3 Neuro Other: walks with a walker Neck - severe tightness and tenderness in left splenius, semispinalis, trapezius, levator muscle with pain radiating to the left parietal temporla region General: patient oriented x3, tone normal and moves all extremities Psych Appearance: grossly normal Mental Status: mental status grossly normal Assessment & Plan Assessment & Plan (1) Chronic migraine without aura: Comment: w/ neuralgia component over left mosque Code(s): G43.709 - Chronic migraine without aura, not intractable, without status migrainosus Category: Medical Qualifiers: Status migrainosus presence: without status migrainosus Intractability: intractable Qualified Code(s): G43.719 - Chronic migraine without aura, intractable, without status migrainosus (2) Chronic migraine without aura, intractable, without status migrainosus: Code(s): G43.719 - Chronic migraine without aura, intractable, without status migrainosus Category: Medical (3) Cervicalgia: Code(s): M54.2 - Cervicalgia Category: Medical Plan I will trial her on cyclobenzaprine 10mg qhs for cervicalgia triggering her mi graines Medications: New cyclobenzaprine 10 mg PO BEDTIME 30 tabs 2RF Coding Level of Care Code Est Pt Level 4 (86400) Complex EM visit Add On G2211 Diagnoses Intractable chronic migraine without aura and without status migrainosus G43.719 Status migrainosus presence: without status migrainosus Intractability: intractable Chronic migraine without aura, intractable, without status migrainosus G43.719 Cervicalgia M54.2
[2024-03-23 11:04] VITALS: BP 115/72; PULSE 76; O2SAT 96; BMI 33.6
== END 2024-03-23 11:32 | disposition home or self-care (01) ==
PROVIDERS: PCP Internal Medicine; Referring Provider Internal Medicine; Visit Provider Psychiatry & Neurology Neurology
DX: G43.719 Chronic migraine without aura, intractable, without status migrainosus (principal); M54.2 Cervicalgia
CPT/HCPCS: 99214

== ENCOUNTER → 2024-03-23 10:21 | Outpatient (BNVA) | payer MEDICAID, SELFPAY | PROVIDERS: PCP Internal Medicine; Visit Provider Psychiatry & Neurology Neurology | DX: G43.719 Chronic migraine without aura, intractable, without status migrainosus (principal); M54.2 Cervicalgia | CPT/HCPCS: 99212 ==

== ENCOUNTER 2024-03-29 11:19 | Outpatient (REF) | payer MEDICAID, SELFPAY ==
--- NOTE | ~2024-03-29 | MM_ITS ---
EXAMINATION: MM SCREENING DIGITAL BREAST TOMOSYNTHESIS, BILATERAL CLINICAL INFORMATION: Screening. Asymptomatic. COMPARISON: Mammography: Comparison is made with available priors TECHNIQUE: Digital breast mammography with tomosynthesis is performed in both the craniocaudal and mediolateral oblique views along with computer-aided detection (CAD). FINDINGS: There are scattered areas of fibroglandular density (ACR BI-RADS breast composition Category b). There are no significant masses, abnormal calcifications, or other abnormalities. MM/MM tomosynthesis screening BI IMPRESSION: No mammographic evidence of malignancy. ASSESSMENT: BI-RADS BI-RADS 1 - Negative RECOMMENDATION: Routine annual mammography screening. 1 year F/U This examination should not preclude the clinical evaluation of a suspicious palpable abnormality. This patient's information was entered into a reminder system with a target due date for their next mammogram. Electronically signed by: Jessica Fonseca DO 04/10/2024 05:28 PM EDT
[2024-03-29 12:45] LABS: MANUAL DIFF FLAG NO
[2024-03-29 13:45] LABS: Basophils Percent Auto 0.4 % (0-2); Eosinophils Absolute Auto 0.2 X10*3/uL (0.0-0.4); Eosinophils Percent Auto 2.6 % (0-4); Hematocrit 36.3 % (37.0-47.0); Hemoglobin 11.4 g/dl (12.0-16.0); Imm Gran Abs Auto 0.04 X10*3/uL (0.00-0.03); Imm Gran Pct Auto 0.5 % (0.0-0.4); Lymphocytes Absolute Auto 2.2 X10*3/uL (1.2-4.9); Lymphocytes Percent Auto 26.2 % (20-40); Mean Corpuscular HGB Conc 31.4 g/dl (31.0-35.0); Mean Corpuscular Hemoglobin 27.4 pg (27.0-33.0); Mean Corpuscular Volume 87.3 fL (80.0-98.0); Mean Platelet Volume 11.3 fL (9.4-12.3); Monocytes Absolute Auto 0.6 X10*3/uL (0.1-1.2); Monocytes Percent Auto 6.9 % (2-11); Neutrophils Absolute Auto 5.3 x10*3/uL (2.0-8.3); Neutrophils Percent Auto 63.4 % (45-73); Platelet Count 141 X10*3/uL (160-400); Red Blood Count 4.16 X10*6/uL (4.20-5.50); Red Cell Distribution Width 14.6 % (11.0-16.0); White Blood Count 8.3 X10*3/uL (4.8-10.8)
[2024-03-29 14:32] LABS: Alanine Aminotransferase 27 U/L (0-31); Albumin Level 3.7 g/dL (3.5-5.0); Alkaline Phosphatase 121 U/L (39-117); Anion Gap 11 (12-20); Aspartate Amino Transferase 22 U/L (5-31); Bilirubin Total 0.2 mg/dL (0.0-1.0); Blood Urea Nitrogen 19 mg/dL (9-16); Calcium 9.2 mg/dL (8.4-10.2); Carbon Dioxide 24 mmol/L (22-29); Chloride 110 mmol/L (96-108); Estimated Glomerular Filt Rate > 60; Glucose Random 78 mg/dL (60-115); Potassium 4.7 mmol/L (3.3-5.1); Sodium 140 mmol/L (135-145); Total Protein 6.5 g/dL (6.5-8.0)
== END 2024-03-29 11:20 | disposition home or self-care (01) ==
LOC: HO.MAMMO 11:19
PROVIDERS: PCP Internal Medicine; Visit Provider Internal Medicine
DX: Z00.00 Encounter for general adult medical examination without abnormal findings (principal); D64.9 Anemia, unspecified; E87.6 Hypokalemia; M51.16 Intervertebral disc disorders with radiculopathy, lumbar region
CPT/HCPCS: 36415; 77063; 77067; 80053; 85025

== ENCOUNTER → 2024-03-29 11:45 | Outpatient (BNV) | payer MEDICAID, SELFPAY | PROVIDERS: PCP Internal Medicine; Visit Provider Internal Medicine | DX: Z12.31 Encounter for screening mammogram for malignant neoplasm of breast (principal) | CPT/HCPCS: 77063; 77067 ==

== ENCOUNTER 2024-04-12 11:22 | Outpatient (REF) | payer MEDICAID, SELFPAY ==
[2024-04-15 02:54] LABS: TS Negative Control Passed; TS Panel A 1; TS Panel B 3; TS Positive Control Passed; TSpotTB Negative (Negative)
== END 2024-04-12 11:23 | disposition home or self-care (01) ==
LOC: HO.LAB 11:22
PROVIDERS: PCP Internal Medicine; Visit Provider Internal Medicine
DX: D69.49 Other primary thrombocytopenia (principal); M51.16 Intervertebral disc disorders with radiculopathy, lumbar region; R51.9 Headache, unspecified
CPT/HCPCS: 36415; 86481

== ENCOUNTER 2024-04-17 11:20 | Outpatient (AMB) | payer MEDICAID, SELFPAY ==
[2024-04-17 11:33] VITALS: BMI 33.6
--- NOTE | 2024-04-17 11:33 | MHC.OFFVIS ---
Vital Signs 04/17/24 11:33 Height 5 ft 6 in Weight 208 lb BMI 33.6 Intake Visit Reasons: Botox Intake Note: Patient presents for botox Allergies amoxicillin Allergy (Severe, Verified 04/17/24 11:36) yeast infection, itching gabapentin Allergy (Severe, Verified 04/17/24 11:36) Swelling baclofen Allergy (Intermediate, Verified 04/17/24 11:36) Swelling, sob lamotrigine Allergy (Unknown, Verified 04/17/24 11:36) Swelling Meloxicam Allergy (Severe, Uncoded 04/17/24 11:36) swelling Medication List - Last Reconciled 04/17/24 by Yas Adam MD blood pressure monitor Check BP bid and prn lightheadedness celecoxib 200 mg PO DAILY cetirizine (All Day Allergy (cetirizine)) 10 mg PO DAILY PRN cholecalciferol (vitamin D3) (Vitamin D3) 125 mcg PO DAILY 90 days cyanocobalamin (vitamin B-12) 200 mcg PO DAILY cyclobenzaprine 10 mg PO BEDTIME docusate sodium (Colace) 100 mg PO DAILY escitalopram oxalate 5 mg PO DAILY levetiracetam 500 mg PO BID linaclotide (Linzess) 145 mcg PO DAILY lurasidone 120 mg PO DAILY nortriptyline 25 mg PO BID pantoprazole 40 mg PO DAILY 90 days sennosides (Natural Senna Laxative) 17.2 mg (2 x 8.6 mg) PO BEDTIME tramadol 25 mg PO Q6H PRN MDD 4 tabs trazodone 150 mg PO ONCE valacyclovir 1,000 mg PO DAILY HPI Comments Details: ? 58y/o female comes for treatment of migraines with botox. How many migraine days prior to botox 25-30/month How long do the migraines last 1-2 days Intensity of migraine8-10 ER visits related to migraine 1-2 Effectiveness of botox from last two treatment(s) How many migraine days since receiving treatment:5-10/month Change? in intensity of migraine?decreased Change in frequency of migraine?decreased Change in use of acute medication for migraine?decreased Change in quality of life?improved ER visits related to migraine?none Explanation for any gaps in treatment- hospitalized for syncope, malnutrition Have at least three months elapsed since last treatment (Last botox date - frequency of injections) 01/04 ??? Most frequent reported adverse reactions following injection of botox for chronic migraine include neck pain (9%), headache(5%), eyelid ptosis(4%), migraine(4%), muscular weakness(4%), musculuskeletal stiffness(4%), bronchitis(3%), injection site pain (3%), musculoskeletal pain(3%), myalgia(3%), facial paresis(2%), HTN(2%) and muscle spasms(2%) were discussed in detail. ??? Botulinum toxin typeA 200units Lot no [id number] expiration August 2026 was diluted with 4 cc of normal saline . ??? Muscles injected ??? Frontalis 4 sites ??? Procerus 1 site ??? Clerical Clerk- 2 sites ??? Temporalis- 8 sites ??? Occipitalis- 6 sites ??? Cervical paraspinals- 4 sites ??? Trapezius- 6 sites- 5 units each ??? 5 units each in 31 site ??? Total use- 155units ??? Discarded-45units [facility] Medical History Personal history of nicotine dependence Cervicalgia Obesity (BMI 30-39.9) Chronic migraine without aura, intractable, without status migrainosus History of low back pain Hx of myocardial infarction (~11/2022) Hx of migraines CKD (chronic kidney disease) History of blood transfusion (~04/2023) Weakness of both legs History of seizures Major depressive disorder, recurrent Internal hernia Excess skin of upper extremity Lipoma History of lipoma Sleep apnea with use of continuous positive airway pressure (CPAP) Hypercholesterolemia Type 2 diabetes mellitus Anemia Lymphedema Migraines Anxiety Back pain Arthritis Carpal tunnel syndrome Body mass index (BMI) of 32.0-32.9 in adult Intestinal malabsorption following gastrectomy H/O nephrolithotomy with removal of calculi Surgical History Hx of cataract surgery History of dental surgery (~06/2023) H/O hernia repair History of gastric surgery Hx of colonoscopy Hx of lumpectomy H/O cervical discectomy History of Zane-en-Y gastric bypass S/P carpal tunnel release Hx of section S/P knee replacement History of back surgery Family History Father No problems noted. Mother Arthritis Brother No problems noted. Brother No problems noted. Sister No problems noted. Sister No problems noted. Sister No problems noted. Sister No problems noted. Son No problems noted. Daughter No problems noted. 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) Alcohol intake: former Patient Tobacco Use Status: Former Tobacco user Tobacco use type: Cigarette Advance Directives Date on File: 07/04/21 service: No Current occupational status: disabled Physical Exam Vital Signs: BMI result Body Mass Index 33.6 Const General: healthy appearing, no acute distress and well developed Nutritional Appearance: well nourished Orientation/consciousness: patient oriented x3 Neuro Other: walks with a walker Neck - severe tightness and tenderness in left splenius, semispinalis, trapezius, levator muscle with pain radiating to the left parietal temporla region General: patient oriented x3, tone normal and moves all extremities Psych Appearance: grossly normal Mental Status: mental status grossly normal Office Procedures Botulinum toxin Injection 22343 - Migraine Procedure code (CPT) selection complete Office Meds onabotulinumtoxinA 200 unit solution for injection Performing Provider: Yas Adam MD Performing Location: [facility] Administered by: Yas Adam MD on 04/17/24 12:29 Dose Route Admin Location Dispensed Lot Number Expiration Date [facility] Elementary Teacher 185 unit subcut 200 units [id number] 08/13/23 1325-0150-87 [employer] Comments: see HPI Assessment & Plan Assessment & Plan (1) Chronic migraine without aura: Comment: w/ neuralgia component over left church Code(s): G43.709 - Chronic migraine without aura, not intractable, without status migrainosus Category: Medical Qualifiers: Status migrainosus presence: without status migrainosus Intractability: intractable Qualified Code(s): G43.719 - Chronic migraine without aura, intractable, without status migrainosus (2) Chronic migraine without aura, intractable, without status migrainosus: Code(s): G43.719 - Chronic migraine without aura, intractable, without status migrainosus Category: Medical (3) Cervicalgia: Code(s): M54.2 - Cervicalgia Category: Medical Plan Increase cyclobenzaprine 10mg bid for cervicalgia triggering her migraines Patient tolerated the procedure well . SHe will call with any side effects Orders: Orders PT Evaluation and Treatment Today M54.2 - Cervicalgia AMB Botulinum toxin Injection Today G43.719 - Chronic migraine without aura, intractable, without status migrainosus Medications: New onabotulinumtoxinA 200 units subcut ONCE 1 ea 0RF migraine G43.719 - Chronic migraine without aura, intractable, without status migrainosus Changed From cyclobenzaprine 10 mg PO BEDTIME 30 tabs 2RF To cyclobenzaprine 10 mg PO BID 30 tabs 2RF Refilled cyclobenzaprine 10 mg PO BID 60 tabs 2RF Coding Level of Care Code Est Pt Level 1 (25113) Complex EM visit Add On G2211 Diagnoses Intractable chronic migraine without aura and without status migrainosus G43.719 Status migrainosus presence: without status migrainosus Intractability: intractable Chronic migraine without aura, intractable, without status migrainosus G43.719 Cervicalgia M54.2 CPT Codes Botox Injection - Botox 3: 13548 - Migraine ([id number])
== END 2024-04-17 12:02 | disposition home or self-care (01) ==
LOC: HO.HSMS 11:20
PROVIDERS: PCP Internal Medicine; Visit Provider Psychiatry & Neurology Neurology
DX: G43.719 Chronic migraine without aura, intractable, without status migrainosus (principal)
CPT/HCPCS: 64615

== ENCOUNTER → 2024-04-17 11:20 | Outpatient (BNVA) | payer MEDICAID, SELFPAY | PROVIDERS: PCP Internal Medicine; Visit Provider Psychiatry & Neurology Neurology | DX: G43.719 Chronic migraine without aura, intractable, without status migrainosus (principal); M54.2 Cervicalgia | CPT/HCPCS: 64615; 99211; J0585 ==

== ENCOUNTER 2024-04-24 09:26 | Outpatient (AMB) | payer MEDICAID, SELFPAY ==
--- NOTE | 2024-04-24 09:34 | A.OFFVIS_ITS ---
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 Patient reports her left 1st and 2nd digits pain has exacerbated. She assumed her pain was from her brace so she discontinued the use of it however the pain never resolved. She states these digits also have been cramping and locking on her with numbness and tingling. Her numbness and tingling is also on the palm of her left and right hand. Allergies amoxicillin Allergy (Severe, Verified 04/24/24 09:37) yeast infection, itching gabapentin Allergy (Severe, Verified 04/24/24 09:37) Swelling baclofen Allergy (Intermediate, Verified 04/24/24 09:37) Swelling, sob lamotrigine Allergy (Unknown, Verified 04/24/24 09:37) Swelling Meloxicam Allergy (Severe, Uncoded 04/24/24 09:37) swelling HPI HPI OV-f/u Left Wrist Pain-6 WK follow up: Details: Patient is a 58-year-old female who presents for 6 week follow-up of left thumb and wrist pain. The patient states that the injection given to her 6 weeks ago had no effect on her pain at the radial styloid in the base of the right thumb, and the patient also reports that she has been trying to avoid using her hands if possible. The patient states that due to this, she feels that her hands are getting stiff, and she notices that she has increased difficulty with making a closed fist and grasping aching. The patient also states she has noticed increased cramping, particularly in her right hand. Patient has been using the comfort cool brace when she is along with pain, and states that this does help, although mildly. Patient states she would like to explore alternative treatment options if possible. No numbness or tingling in bilateral hands. No other acute complaints or concerns at this time. [facility] Medical History Personal history of nicotine dependence Cervicalgia Obesity (BMI 30-39.9) Chronic migraine without aura, intractable, without status migrainosus History of low back pain Hx of myocardial infarction (~11/2022) Hx of migraines CKD (chronic kidney disease) History of blood transfusion (~04/2023) Weakness of both legs History of seizures Major depressive disorder, recurrent Internal hernia Excess skin of upper extremity Lipoma History of lipoma Sleep apnea with use of continuous positive airway pressure (CPAP) Hypercholesterolemia Type 2 diabetes mellitus Anemia Lymphedema Migraines Anxiety Back pain Arthritis Carpal tunnel syndrome Body mass index (BMI) of 32.0-32.9 in adult Intestinal malabsorption following gastrectomy H/O nephrolithotomy with removal of calculi Surgical History Hx of cataract surgery History of dental surgery (~06/2023) H/O hernia repair History of gastric surgery Hx of colonoscopy Hx of lumpectomy H/O cervical discectomy History of Zane-en-Y gastric bypass S/P carpal tunnel release Hx of section S/P knee replacement History of back surgery Family History Father No problems noted. Mother Arthritis Brother No problems noted. Brother No problems noted. Sister No problems noted. Sister No problems noted. Sister No problems noted. Sister No problems noted. Son No problems noted. Daughter No problems noted. 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, TRANSITION MGR RN Housing: House Are you a primary janitor caretaker to a significant other at home: No Do you presently have visiting nurse or other home services: Yes (TRANSITION MGR RN 4 hrs/day) Alcohol intake: former Patient Tobacco Use Status: Former Tobacco user Tobacco use type: Cigarette Advance Directives Date on File: 07/04/21 service: No Current occupational status: disabled Review of Systems Const All systems reviewed & are unremarkable except as noted in HPI and below Physical Exam Vital Signs: BMI result Body Mass Index 33.6 Extrem Other: Patient is alert, oriented, and in no acute distress. Neuro: Normal sensation of the tips of all digits of the bilateral hands at this time Vascular: Cap refill brisk Pain: Tenderness to palpation of the radial styloid of the left wrist Mild tenderness to CMC grind or palpation of the basal joint of the left thumb No tenderness to palpation of the DRUJ, ulnar styloid ROM: Patient is able to make a closed fist and extend all digits of the left hand fully Skin: No lacerations or abrasions. General: No ecchymosis, erythema, or evidence of infection. Positive Zeny test in the left Psych: Appears grossly normal Affect normal Attitude cooperative Results Reviewed Results Reviewed: X-rays obtained in the office at previous visit and independently reviewed by me, Colton Harris PA-C, demonstrate very mild basal joint arthritis of the left 1st CMC joint. Assessment & Plan Assessment & Plan (1) Stiffness of joints of both hands: Code(s): M25.641 - Stiffness of right hand, not elsewhere classified; M25.642 - Stiffness of left hand, not elsewhere classified Category: Medical (2) De Quervain's tenosynovitis, left: Code(s): M65.4 - Radial styloid tenosynovitis [de Quervain] Category: Medical Plan 1. De Quervain tenosynovitis, left Status post injection with no improvement I educated the patient about the condition. I discussed both operative and nonoperative treatment options. The patient would like to proceed with surgery. The risks and benefits of operative treatment were discussed with the patient and the patient wishes to proceed with surgery. These risks include, but are not limited to, risk of damage to blood vessels, nerves, tendons, infection, recurrence, incomplete relief of preoperative symptoms, persistent pain, possible need for further surgery, and the risks associated with regional blocks and/or anesthesia. Plan is to take the patient to the operating room at some point in the next few weeks for the following procedures: 1. Left 1st dorsal compartment release under local anesthesia All of the preoperative paperwork including the consent was discussed today. All of the patient's questions were answered in the clinic today. The patient understands that they will be in contact with our surgical specialist to discuss scheduling their procedure. Patient denies diabetes, blood thinners, asthma, heart issues, lung issues, kidney issues, or current smoking. 2. Stiffness of bilateral hands Patient was referred to occupational therapy for range of motion and strengthening of bilateral hands Patient is amenable to this plan Patient is also advised that she should only be wearing the comfort cool thumb spica brace with daytime activities, in order to prevent stiffness of the left thumb Patient understands this Orders: Orders OT Evaluation and Treatment Today M25.641 - Stiffness of right hand, not elsewhere classified, M25.642 - Stiffness of left hand, not elsewhere classified Coding Level of Care Code Est Pt Level 4 (09742) Diagnoses Stiffness of joints of both hands M25.641; M25.642 De Quervain's tenosynovitis, left M65.4
[2024-04-24 09:36] VITALS: BMI 33.6
== END 2024-04-24 09:57 | disposition home or self-care (01) ==
PROVIDERS: PCP Internal Medicine
DX: M25.641 Stiffness of right hand, not elsewhere classified (principal); M25.642 Stiffness of left hand, not elsewhere classified; M65.4 Radial styloid tenosynovitis [de Quervain]
CPT/HCPCS: 99214

== ENCOUNTER → 2024-04-24 09:26 | Outpatient (BNVA) | payer MEDICAID, SELFPAY | PROVIDERS: PCP Internal Medicine | DX: M65.4 Radial styloid tenosynovitis [de Quervain] (principal); M25.641 Stiffness of right hand, not elsewhere classified; M25.642 Stiffness of left hand, not elsewhere classified | CPT/HCPCS: 99212 ==

== ENCOUNTER 2024-05-05 10:31 | Outpatient (AMB) | payer MEDICAID, SELFPAY ==
--- NOTE | 2024-05-05 07:56 | MHC.OFFVIS ---
Intake Visit Reasons: Former Smoker Allergies amoxicillin Allergy (Severe, Verified 04/24/24 09:37) yeast infection, itching gabapentin Allergy (Severe, Verified 04/24/24 09:37) Swelling baclofen Allergy (Intermediate, Verified 04/24/24 09:37) Swelling, sob lamotrigine Allergy (Unknown, Verified 04/24/24 09:37) Swelling Meloxicam Allergy (Severe, Uncoded 04/24/24 09:37) swelling HPI HPI Former Smoker: Details: Initial visit for this 58yo former smoker with a 20PYH. Patient started smoking at age 25 for 28 years at 1/2-1ppd. Quit 5 years ago in 2019. . Denies marijuana use. Denies second hand smoke exposure. Denies exposure to chemicals or substances like asbestos. . Denies known family history of lung cancer. Denies personal history of cancers. Denies chest CT in last year. . Denies recent travel outside the [place]. Denies recent respiratory illness or recent hospitalization for respiratory issues. Reports testing positive for COVID. Admits receiving COVID Vaccine. . Denies fever, chills, new/worsening cough, hemoptysis, hoarseness or dysphagia. Denies significant chest pain, significant dyspnea or unintentional weight loss. Patient Lung Cancer Screening Questionnaire reviewed with patient by provider. . Shared Decision Making Completed. Patient meets criteria. Discussed in detail with patient, the risk vs benefit of LDCT screening. Patient consents to proceed with scan. Discussed and encouraged continued smoking cessation. [facility] Medical History (Updated 05/05/24 @ 10:51 by Citlaly Nolan PA-C) Personal history of nicotine dependence Cervicalgia Obesity (BMI 30-39.9) Chronic migraine without aura, intractable, without status migrainosus History of low back pain Hx of myocardial infarction (~11/2022) Hx of migraines CKD (chronic kidney disease) History of blood transfusion (~04/2023) Weakness of both legs History of seizures Major depressive disorder, recurrent Internal hernia Excess skin of upper extremity Lipoma History of lipoma Sleep apnea with use of continuous positive airway pressure (CPAP) Hypercholesterolemia Type 2 diabetes mellitus Anemia Lymphedema Migraines Anxiety Back pain Arthritis Carpal tunnel syndrome Body mass index (BMI) of 32.0-32.9 in adult Intestinal malabsorption following gastrectomy H/O nephrolithotomy with removal of calculi Surgical History (Updated 05/04/24 @ 16:11 by Citlaly Nolan PA-C) S/P brachioplasty S/P panniculectomy History of Zane-en-Y gastric bypass Hx of cataract surgery History of dental surgery (~06/2023) H/O hernia repair History of gastric surgery Hx of colonoscopy Hx of lumpectomy H/O cervical discectomy S/P carpal tunnel release Hx of section S/P knee replacement History of back surgery Family History Father No problems noted. Mother Arthritis Brother No problems noted. Brother No problems noted. Sister No problems noted. Sister No problems noted. Sister No problems noted. Sister No problems noted. Son No problems noted. Daughter No problems noted. Social History (Updated 05/05/24 @ 10:51 by Citlaly Nolan PA-C) Household Members: Caregiver and Other Household Members Other:: son, FILM PROCESSING SHIFT SUPERVISOR Housing: House Are you a primary rn patient care to a significant other at home: No Do you presently have visiting nurse or other home services: Yes (FILM PROCESSING SHIFT SUPERVISOR 4 hrs/day) Alcohol intake: former Patient Tobacco Use Status: Former Tobacco user Tobacco use type: Cigarette Years Smoked: (former smoker 20pyh quit 2018) Advance Directives Date on File: 07/04/21 service: No Current occupational status: disabled Assessment & Plan Assessment & Plan (1) Personal history of nicotine dependence: Comment: (former smoker 20pyh quit 2018) Code(s): Z87.891 - Personal history of nicotine dependence Category: Medical Plan: - SDM visit completed today in office. - Patient meets criteria for LDCT for lung cancer screening purposes and is asymptomatic. - Smoking cessation counseling offered. Patients can always call [phone]. - Will arrange for a LDCT scan of the chest for screening purposes at [facility]. - Risks, benefits, and alternatives were discussed in detail and the patient agrees to proceed. - Risks discussed include but are not limited to: radiation exposure, anxiety during testing and while awaiting results, false negatives, false positives and possibility of additional intervention such as further imaging or surgical procedures for benign disease. - Benefits are obviously detection of lung cancer at an early stage which can lead to improved outcomes. - Discussed the importance of screening program compliance with adherence to yearly LDCT scan as scheduled - or sooner interval scans for personalized screening regimen. - Discussed follow up plan. Our office will send a letter discussing results and if needed set up phone call and office visit based on CT findings. - Patient educated on results categorization and the management decisions for suspicious findings potentially found on the screening LDCT scan. Any patient with a Lung RADS score of 3 or 4 will be reviewed by a multidisciplinary team at [facility] to form a plan of action in regards to scan findings. - If further work up is warranted for a suspicious lung finding this will be followed by the Lung Cancer Screening program in conjunction with the Thoracic Surgery Department at [facility]. - A copy of the office note and LDCT will be sent to the patient's PCP - as well as documentation on any associated further plans of care. - Incidental findings on LDCT are the PCP's responsibility. These findings are indicated with an S finding on the LDCT Assessment. A note discussing the findings will be sent to the PCP who is then responsible for further management. - All questions answered.? Coding Level of Care Code Lung Cancer Screening G0296 Diagnoses Personal history of nicotine dependence Z87.891
== END 2024-05-05 11:03 | disposition home or self-care (01) ==
PROVIDERS: PCP Internal Medicine; Visit Provider Physician Assistant Medical
DX: Z87.891 Personal history of nicotine dependence (principal)
CPT/HCPCS: G0296

== ENCOUNTER 2024-05-05 10:50 | Outpatient (REF) | payer MEDICAID, SELFPAY | END 2024-05-05 10:51 | disposition home or self-care (01) | LOC: HO.CT 10:50 | PROVIDERS: PCP Internal Medicine; Visit Provider Physician Assistant Medical | DX: Z12.2 Encounter for screening for malignant neoplasm of respiratory organs (principal); Z87.891 Personal history of nicotine dependence | CPT/HCPCS: 71271; G0296 ==

== ENCOUNTER 2024-06-05 10:19 | Outpatient (RCR) | payer MEDICAID, SELFPAY ==
--- NOTE | 2024-05-08 15:28 | MHC.OT.EP ---
[address] [phone] Occupational Therapy Plan of Care Patient Name: Olga Ware Date of Evaluation: 05/03/24 Diagnosis: B hand stiffness Pain Location: volar/ radial side of hand Pain Score: 8 Pain Scale Used: Numeric (0 - 10) Aggravating Factors: unable to quantify Alleviating Factors: nothing Assessment: Pt is a 58 yr. old R hand dominant female who reports pain and paresthesia in her B hands and wrists. She reports it affects her ability to perform tasks such as carrying a grocery bag, and cooking. She is disabled due to a stroke and cardiac issue last year and has a PUMP MECHANIC to help her w/ ADLs. She reports she will be having CT release surgery soon. She has been referred to skilled OT therapy for increased pain free ROM, strength, and functional use of her B hands Frequency and Duration: The patient will be seen Short Term Goals: Pt will be compliant w/ her HEP Pt will report increased R wrist flexion (40) pain free Pt will be compliant w/ joint protection techniques Alf Goals: Pt will have a DASH score >40 Pt will gain 20 lbs of L hand onion tier (45 lbs) Pt will report using her R hand to carry a grocery bag w/ minimal pain Treatment Plan: Therapeutic Exercise Therapeutic Activity Home Exercise Program Splinting Neuro Re-ed Patient Education Desensitization/Sensory Re-ed Edema Control ADL Training Ultrasound NMES Iontophoresis Paraffin Fluidotherapy MHP Cold Packs Joint Mobilization Soft Tissue Mobilization Kinesiotaping Other (see comments) Electronically Signed By: Claritza Maynard OTR/L Please Sign and return to therapist. Thank you once again for your referral.
--- NOTE | 2024-05-08 15:35 | MHC.OT.EP ---
[address] [phone] Occupational Therapy Plan of Care Patient Name: Olga Ware Date of Evaluation: 05/03/24 Diagnosis: B hand stiffness Pain Location: volar/ radial side of hand Pain Score: 8 Pain Scale Used: Numeric (0 - 10) Aggravating Factors: unable to quantify Alleviating Factors: nothing Assessment: Pt is a 58 yr. old R hand dominant female who reports pain and paresthesia in her B hands and wrists. She reports it affects her ability to perform tasks such as carrying a grocery bag, and cooking. She is disabled due to a stroke and cardiac issue last year and has a PIPE ORGAN INSTALLER to help her w/ ADLs. She reports she will be having CT release surgery soon. She has been referred to skilled OT therapy for increased pain free ROM, strength, and functional use of her B hands Frequency and Duration: The patient will be seen 2 xs a week for 4 weeks Short Term Goals: Pt will be compliant w/ her HEP Pt will report increased R wrist flexion (40) pain free Pt will be compliant w/ joint protection techniques Custodial Goals: Pt will have a DASH score >40 Pt will gain 20 lbs of L hand corporate statistical financial analyst (45 lbs) Pt will report using her R hand to carry a grocery bag w/ minimal pain Treatment Plan: Therapeutic Exercise Therapeutic Activity Home Exercise Program Splinting Neuro Re-ed Patient Education Desensitization/Sensory Re-ed Edema Control ADL Training Ultrasound NMES Iontophoresis Paraffin Fluidotherapy MHP Cold Packs Joint Mobilization Soft Tissue Mobilization Kinesiotaping Other (see comments) Electronically Signed By: Claritza Maynard OTR/L Please Sign and return to therapist. Thank you once again for your referral.
== END 2024-06-05 11:20 | disposition home or self-care (01) ==
LOC: HO.OT 10:19
PROVIDERS: PCP Internal Medicine
DX: M25.641 Stiffness of right hand, not elsewhere classified (principal); M25.642 Stiffness of left hand, not elsewhere classified
CPT/HCPCS: 97110; 97140; 97166

== ENCOUNTER 2024-06-08 07:54 | Day surgery (SDC) | payer MEDICAID, SELFPAY ==
[2024-06-08 08:15] VITALS: BP 125/69; PULSE 82; RESP 16; TEMP 36.6; O2SAT 100
[2024-06-08 09:01] VITALS: BMI 34.1
--- NOTE | 2024-06-08 10:13 | P.OP_ITS ---
Operative Note Operative Note Date of Service: 06/08/24 Narrative: Operative Note Preop diagnosis: 1. Left DeQuervain's tenosynovitis Postop diagnosis: 1. Left DeQuervain's tenosynovitis Procedure: 1. Left 1st dorsal compartment release Surgeon: Inesas Lua MD Supervisor Electronic Testing: Colton ARGUELLES Anesthesia: local block using 1% lidocaine with epinephrine Findings: Thickened 1st dorsal compartment. EPB in separate compartment No significant visible tenosynovitis, tendons in good condition. EBL: Less than 5 mL Tourniquet time: None Specimens: None Complications: None Disposition: Brought to recovery room in stable condition Plan: Follow-up for 7-10 days for wound check and suture removal Indications: The patient is 59 years old, with left DeQuervain's tenosynovitis that has been unresponsive to nonoperative management. The risks and benefits of operative treatment including but not limited to risk of damage to blood vessels, nerves, tendons, infection, persistent pain, persistent symptoms, recurrence or possible need for additional surgery were discussed with the patient and the patient wishes to proceed with surgery. Procedure: Once consent was obtained a local block was performed in the preop area using a combination of 1% lidocaine with epinephrine. The patient was then brought back to the operating suite and placed on the operative table in supine position. A tourniquet was applied to the proximal aspect of the left upper extremity and the limb was prepped and draped in a standard surgical fashion. Once assured that we had a good block, a 1.5 cm longitudinal incision was made centered over the 1st dorsal compartment as it passed over the radial styloid of the left wrist. The incision was made through the skin to the subcutaneous tissues using a #15 blade. Careful dissection was made down to the level of the 1st dorsal compartment using tenotomy scissors, with care being taken to protect the nearby branches of the superficial radial nerve. Once the 1st dorsal compartment was exposed, A longitudinal incision was made in the 1st dorsal compartment 1st using a #15 blade, then using tenotomy scissors under direct visualization. The 1st dorsal compartment was noted to be thickened, and the EPB tendon was noted to be partially in its separate compartment. The EPB tendon was released longitudinally under direct visualization using iris scissors and a 15 blade.. Following our release, we saw smooth gliding abductor pollicis longus and extensor pollicis brevis tendons. Once satisfied with our 1st dorsal compartment release the wound was copiously irrigated with normal saline and hemostasis was obtained with a brief period of local pressure. The subcutaneous layer was closed with some 4-0 Vicryl suture, and the skin edges were reapproximated with some 5.0 nylon suture material. A sterile dressing was applied. The patient appears to have tolerated the procedure well and with no complications. All digits were well vascularized at the conclusion of the case.
--- NOTE | 2024-06-08 10:13 | MHC.SHP ---
Pre-Procedural Eval Section A - 24 Hr Update-Section A only Date of Service: 06/08/24 The patient is an INPATIENT: No Changes since office visit: No Cold of Flu in the past 2 weeks, No New Medical Problems, No Changes in Medication and No Patient answered all questions The patient has been examined within 24 hours of the surgical procedure. The History & Physical has been completed within 30 days and I have reviewed it.: Yes Section B - Complete if H&P > 30 days Chief Complaint: Radial styloid tenosynovitis [de Quervain] Allergies: Allergies Allergy/AdvReac Type Severity Reaction Status Date / Time amoxicillin Allergy Severe yeast Verified 04/24/24 09:37 infection, itching gabapentin Allergy Severe Swelling Verified 04/24/24 09:37 baclofen Allergy Intermediate Swelling, Verified 04/24/24 09:37 sob lamotrigine Allergy Unknown Swelling Verified 04/24/24 09:37 Meloxicam Allergy Severe swelling Uncoded 04/24/24 09:37 Plan Diagnosis/Plan: Unchanged I have reviewed the history and physical and performed a pertinent physical examination on my patient. No changes have occurred unless specified. Time Spent With Patient Time: Total time managing care of this patient today ____ minutes.
[2024-06-08 11:04] VITALS: BP 124/66; PULSE 88; RESP 18; O2SAT 99
== END 2024-06-08 11:05 | disposition home or self-care (01) ==
PROVIDERS: PCP Internal Medicine; Visit Provider Orthopaedic Surgery
PROC: (CPT 25000; principal; 2024-06-08 09:10)
DX: M65.4 Radial styloid tenosynovitis [de Quervain] (principal); M25.642 Stiffness of left hand, not elsewhere classified; M19.042 Primary osteoarthritis, left hand; R20.0 Anesthesia of skin; R20.2 Paresthesia of skin; Z88.1 Allergy status to other antibiotic agents; Z87.891 Personal history of nicotine dependence
CPT/HCPCS: 25000; J0171; J2003; J2004

== ENCOUNTER → 2024-06-08 07:54 | Outpatient (BNV) | payer MEDICAID, SELFPAY | PROVIDERS: PCP Internal Medicine; Visit Provider Orthopaedic Surgery | DX: M65.4 Radial styloid tenosynovitis [de Quervain] (principal) | CPT/HCPCS: 25000 ==

== ENCOUNTER 2024-06-20 09:12 | Outpatient (AMB) | payer MEDICAID, SELFPAY ==
--- NOTE | 2024-06-20 09:13 | MHC.OFFVIS ---
Vital Signs 06/20/24 09:14 Height 5 ft 6 in Weight 211 lb BMI 34.1 Intake Visit Reasons: PO LT 1st DC release 06/08/24 AR Intake Note: Olga is a 59 year old right hand dominant female who presents today for a post operative appointment s/p left 1st dorsal compartment release 06/08/24 w/ Dr Lua. Patient reports that she is doing well, she has some soreness at the wrist and locking of the left 2nd digit. Sutures were removed and steri strips applied Allergies amoxicillin Allergy (Severe, Verified 06/20/24 09:20) yeast infection, itching gabapentin Allergy (Severe, Verified 06/20/24 09:20) Swelling baclofen Allergy (Intermediate, Verified 06/20/24 09:20) Swelling, sob lamotrigine Allergy (Unknown, Verified 06/20/24 09:20) Swelling Meloxicam Allergy (Severe, Uncoded 06/20/24 09:20) swelling HPI HPI PO LT 1st DC release 06/08/24 AR: Details: Olga is a 59 year old right hand dominant female who presents today for a post operative appointment s/p left 1st dorsal compartment release 06/08/24 w/ Dr Lua. Patient reports that she is doing well, she has some soreness at the wrist and locking of the left 2nd digit. Sutures were removed and steri strips applied [facility] Medical History (Updated 06/20/24 @ 10:06 by KINDRA Leon) CVA (cerebral vascular accident) Seizure Personal history of nicotine dependence Cervicalgia Chronic migraine without aura, intractable, without status migrainosus History of low back pain Hx of myocardial infarction (~11/2022) Hx of migraines CKD (chronic kidney disease) History of blood transfusion (~04/2023) Weakness of both legs History of seizures Major depressive disorder, recurrent Internal hernia Excess skin of upper extremity Lipoma History of lipoma Sleep apnea with use of continuous positive airway pressure (CPAP) Hypercholesterolemia Type 2 diabetes mellitus Anemia Lymphedema Migraines Anxiety Back pain Arthritis Carpal tunnel syndrome Body mass index (BMI) of 32.0-32.9 in adult Obesity (BMI 30-39.9) Intestinal malabsorption following gastrectomy H/O nephrolithotomy with removal of calculi Surgical History (Updated 05/04/24 @ 16:11 by Citlaly Nolan PA-C) Hx of cataract surgery S/P brachioplasty S/P panniculectomy History of dental surgery (~06/2023) H/O hernia repair History of gastric surgery Hx of colonoscopy Hx of lumpectomy H/O cervical discectomy History of Zane-en-Y gastric bypass S/P carpal tunnel release Hx of section S/P knee replacement History of back surgery Family History Father No problems noted. Mother Arthritis Brother No problems noted. Brother No problems noted. Sister No problems noted. Sister No problems noted. Sister No problems noted. Sister No problems noted. Son No problems noted. Daughter No problems noted. 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 WASHER Caregiver staying overnight: No Housing: House Are you a primary child care education coordinator to a significant other at home: No Do you presently have visiting nurse or other home services: Yes (OIL SPOT WASHER 4 hrs/day) Alcohol intake: former Patient Tobacco Use Status: Former Tobacco user Tobacco use type: Cigarette Years Smoked: (former smoker 20pyh quit 2018) Advance Directives Date on File: 07/04/21 service: No Current occupational status: disabled Review of Systems Const All systems reviewed & are unremarkable except as noted in HPI and below Physical Exam Vital Signs: BMI result Body Mass Index 34.1 Extrem Other: Patient is alert, oriented, and in no acute distress. Neuro: Normal sensation of the tips of all digits of the bilateral hands at this time Vascular: Cap refill brisk Pain: Mild Tenderness to palpation of the radial styloid of the left wrist Mild tenderness to CMC grind or palpation of the basal joint of the left thumb No tenderness to palpation of the DRUJ, ulnar styloid ROM: Patient is able to make a closed fist and extend all digits of the left hand fully, but reports discomfort in hands when doing so Skin: No lacerations or abrasions. General: No ecchymosis, erythema, or evidence of infection. Improved Zeny test in the left Positive Zeny test on the right Psych: Appears grossly normal Affect normal Attitude cooperative Assessment & Plan Assessment & Plan (1) De Quervain's tenosynovitis, bilateral: Code(s): M65.4 - Radial styloid tenosynovitis [de Quervain] Category: Medical (2) Stiffness of joints of both hands: Code(s): M25.641 - Stiffness of right hand, not elsewhere classified; M25.642 - Stiffness of left hand, not elsewhere classified Category: Medical Plan 1. De Quervain tenosynovitis, left, status post SNF release DOS 06/05/2024 Patient appears to be recovering well postoperatively Patient is educated about the typical recovery course At this time, patient is informed she will require no acute follow-up for this surgery, as she appears to be recovering very well Patient was amenable to this plan 2. De Quervain tenosynovitis, right Patient states she would like to attempts steroid injection on the right side Patient will be booked for follow-up appointment for right de Quervain tenosynovitis injection Patient was amenable to this plan 3. Stiffness of bilateral hands Patient was referred to occupational therapy for range of motion and strengthening of bilateral hands Patient was amenable to this plan Patient will follow-up in 2-3 weeks for right de Quervain injection, sooner with any acute concerns Coding Level of Care Code Global (11772) Diagnoses De Quervain's tenosynovitis, bilateral M65.4 Stiffness of joints of both hands M25.641; M25.642
[2024-06-20 09:14] VITALS: BMI 34.1
== END 2024-06-20 09:34 | disposition home or self-care (01) ==
PROVIDERS: PCP Internal Medicine
DX: M65.4 Radial styloid tenosynovitis [de Quervain] (principal); M25.641 Stiffness of right hand, not elsewhere classified; M25.642 Stiffness of left hand, not elsewhere classified
CPT/HCPCS: 99024

== ENCOUNTER → 2024-06-20 09:12 | Outpatient (BNVA) | payer MEDICAID, SELFPAY | PROVIDERS: PCP Internal Medicine | DX: Z47.89 Encounter for other orthopedic aftercare (principal); M65.4 Radial styloid tenosynovitis [de Quervain]; M25.641 Stiffness of right hand, not elsewhere classified; M25.642 Stiffness of left hand, not elsewhere classified | CPT/HCPCS: 99212 ==

== ENCOUNTER 2024-07-04 08:31 | Outpatient (AMB) | payer MEDICAID, SELFPAY ==
--- NOTE | 2024-07-04 08:35 | A.OFFVIS_ITS ---
Vital Signs 07/04/24 08:41 Height 5 ft 6 in Weight 211 lb BMI 34.1 Intake Visit Reasons: Inj-RT De Quervain's inj Intake Note: Olga is a 59 year old right hand dominant female who presents today for a right De Quervain's injection. Allergies amoxicillin Allergy (Severe, Verified 07/04/24 08:41) yeast infection, itching gabapentin Allergy (Severe, Verified 07/04/24 08:41) Swelling baclofen Allergy (Intermediate, Verified 07/04/24 08:41) Swelling, sob lamotrigine Allergy (Unknown, Verified 07/04/24 08:41) Swelling Meloxicam Allergy (Severe, Uncoded 07/04/24 08:41) swelling HPI HPI Inj-RT De Quervain's inj: Details: Patient is a 59-year-old female presents for right de Quervain injection. Patient states that she is still experiencing significant pain in the right radial styloid moving up the thumb and forearm. No numbness or tingling. No other acute complaints or concerns at this time. [facility] Medical History (Updated 06/20/24 @ 10:06 by KINDRA Leon) CVA (cerebral vascular accident) Seizure Personal history of nicotine dependence Cervicalgia Chronic migraine without aura, intractable, without status migrainosus History of low back pain Hx of myocardial infarction (~11/2022) Hx of migraines CKD (chronic kidney disease) History of blood transfusion (~04/2023) Weakness of both legs History of seizures Major depressive disorder, recurrent Internal hernia Excess skin of upper extremity Lipoma History of lipoma Sleep apnea with use of continuous positive airway pressure (CPAP) Hypercholesterolemia Type 2 diabetes mellitus Anemia Lymphedema Migraines Anxiety Back pain Arthritis Carpal tunnel syndrome Body mass index (BMI) of 32.0-32.9 in adult Obesity (BMI 30-39.9) Intestinal malabsorption following gastrectomy H/O nephrolithotomy with removal of calculi Surgical History Hx of cataract surgery S/P brachioplasty S/P panniculectomy History of dental surgery (~06/2023) H/O hernia repair History of gastric surgery Hx of colonoscopy Hx of lumpectomy H/O cervical discectomy History of Zane-en-Y gastric bypass S/P carpal tunnel release Hx of section S/P knee replacement History of back surgery Family History Father No problems noted. Mother Arthritis Brother No problems noted. Brother No problems noted. Sister No problems noted. Sister No problems noted. Sister No problems noted. Sister No problems noted. Son No problems noted. Daughter No problems noted. 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, CONTACT WORKER LITHOGRAPHY Housing: House Are you a primary acute care nursing assistant to a significant other at home: No Do you presently have visiting nurse or other home services: Yes (CONTACT WORKER LITHOGRAPHY 4 hrs/day) Alcohol intake: former Patient Tobacco Use Status: Former Tobacco user Tobacco use type: Cigarette Years Smoked: (former smoker 20pyh quit 2018) Advance Directives Date on File: 07/04/21 service: No Current occupational status: disabled Review of Systems Const All systems reviewed & are unremarkable except as noted in HPI and below Physical Exam Vital Signs: BMI result Body Mass Index 34.1 Office Procedures AMB Tendon Injection Tendon Injection Details: Right de Quervain injection [id number] Tendon Sheath Injection All charges added?: Procedure code (CPT) selection complete Assessment & Plan Assessment & Plan (1) De Quervain's tenosynovitis, bilateral: Code(s): M65.4 - Radial styloid tenosynovitis [de Quervain] Category: Medical (2) Stiffness of joints of both hands: Code(s): M25.641 - Stiffness of right hand, not elsewhere classified; M25.642 - Stiffness of left hand, not elsewhere classified Category: Medical Plan 1. De Quervain tenosynovitis, right Injection #1: The risks and benefits of a steroid injection including but not limited to risk of damage to blood vessels, nerves, tendons, infection, skin bleaching, failure to improve symptoms, increased pain, and possible need for further injections or other intervention were discussed with the patient and the patient wishes to proceed with the steroid injection. Once consent was obtained, I sterilely prepped the area over the 1st dorsal compartment of the right thumb. I then injected the 1st dorsal compartment with a combination of 1 mL of dexamethasone (4mg/ml), and 1% lidocaine. The patient tolerated the procedure well with no complications and good resolution of their symptoms prior to leaving clinic. If the patient continues to have pain 6-8 weeks following this injection, they may call to schedule appointment to discuss alternative treatment options Coding Level of Care Code Procedure Only Diagnoses De Quervain's tenosynovitis, bilateral M65.4 Stiffness of joints of both hands M25.641; M25.642 CPT Codes Tendon Injection - Tendon Injection 1: [id number] Tendon Sheath Injection ([id number])
[2024-07-04 08:41] VITALS: BMI 34.1
== END 2024-07-04 08:51 | disposition home or self-care (01) ==
PROVIDERS: PCP Internal Medicine
DX: M65.4 Radial styloid tenosynovitis [de Quervain] (principal); M25.641 Stiffness of right hand, not elsewhere classified; M25.642 Stiffness of left hand, not elsewhere classified
CPT/HCPCS: 20550

== ENCOUNTER → 2024-07-04 08:31 | Outpatient (BNVA) | payer MEDICAID, SELFPAY | PROVIDERS: PCP Internal Medicine | DX: M65.4 Radial styloid tenosynovitis [de Quervain] (principal); M25.641 Stiffness of right hand, not elsewhere classified; M25.642 Stiffness of left hand, not elsewhere classified | CPT/HCPCS: 20550; J1100; J2003 ==

== ENCOUNTER 2024-07-04 08:58 | Emergency (ER) | payer MEDICAID, SELFPAY ==
--- NOTE | ~2024-07-04 | XR_ITS ---
EXAMINATION: XR FOOT, RIGHT CLINICAL INFORMATION: ?toe fx COMPARISON: None available. TECHNIQUE: AP, lateral, and oblique views of the right foot. FINDINGS: No fracture, dislocation, or suspicious bone lesion. Normal alignment. Mild degenerative arthritis in the first MTP joint. Small plantar calcaneal spur. Normal plantar arch. Soft tissues appear normal. XR/XR foot RT 2V IMPRESSION: No acute findings or fractures. Electronically signed by: Celso Carrizales MD 07/04/2024 09:45 AM ADAN
[2024-07-04 09:09] VITALS: BP 117/41; PULSE 77; RESP 16; TEMP 36.2; O2SAT 99; BMI 37.4
--- NOTE | 2024-07-04 09:12 | PC.NURSE ---
toes appear WNL
--- NOTE | 2024-07-04 12:12 | ED_ITS ---
HPI - Extremity Injury (Lower) General Chief Complaint: Extremity Injury, Lower Stated Complaint: Toe pain Time Seen by Provider: 07/04/24 12:11 Source: patient Mode of arrival: ambulatory Limitations: no limitations History of Present Illness ED Provider: Dr. Jason Dalton HPI Narrative: 59-year-old female with a history of CVA, seizures, myocardial infarction, anemia, anxiety, who presents emergency department for evaluation of pain in her right foot x2 weeks. She denies any injury. She states the pain has come on gradually but he was gotten significantly worse. Patient points to the MTP joints of her 1st 2nd and 3rd toes when asked to localize the pain. She states that the pain is a constant, burning, pounding sensation which is 10/10. The pain is worse with pressure on her foot and with walking. Patient states that she did have a fracture of her 2nd toe of the right foot in 2022 and she believes that the fracture never completely healed. She denied fever, chills, nausea, vomiting or fatigue. Related Data Home Medications ?Medication ?Instructions ?Recorded ?Confirmed levetiracetam 500 mg tablet 500 mg PO BID 12/28/22 04/17/24 cetirizine 10 mg tablet (All Day 10 mg PO DAILY PRN Allergy Symptoms 05/21/23 04/17/24 Allergy (cetirizine)) escitalopram oxalate 5 mg tablet 5 mg PO DAILY 09/07/23 04/17/24 linaclotide 145 mcg capsule 145 mcg PO DAILY 12/30/23 04/17/24 (Linzess) lurasidone 120 mg tablet 120 mg PO DAILY 12/30/23 04/17/24 nortriptyline 25 mg capsule 25 mg PO BID 12/30/23 04/17/24 valacyclovir 1 gram tablet 1,000 mg PO DAILY 12/30/23 04/17/24 cyanocobalamin (vitamin B-12) 100 200 mcg PO DAILY 01/26/24 04/17/24 mcg tablet trazodone 150 mg tablet 150 mg PO ONCE 03/01/24 04/17/24 celecoxib 200 mg capsule 200 mg PO DAILY 03/13/24 04/17/24 Previous Rx's ?Medication ?Instructions ?Recorded blood pressure monitor #1 ea 03/04/22 cholecalciferol (vitamin D3) 125 125 mcg PO DAILY 90 days #90 tabs 09/29/23 mcg (5,000 unit) tablet (Vitamin D3) pantoprazole 40 mg tablet,delayed 40 mg PO DAILY 90 days #90 tabs 01/17/24 release tramadol 25 mg tablet 25 mg PO Q6H PRN pain #20 tabs 03/01/24 riboflavin (vitamin B2) 100 mg 200 mg (2 x 100 mg) PO BID 28 days 05/14/24 tablet (Vitamin B-2) #112 tabs sennosides 8.6 mg tablet (Natural 17.2 mg (2 x 8.6 mg) PO BEDTIME 06/02/24 Senna Laxative) constipation #60 tabs oxycodone-acetaminophen 5 mg-325 1 tab PO Q6H PRN pain, severe #5 06/08/24 mg tablet tabs docusate sodium 100 mg capsule 100 mg PO DAILY #90 caps 06/23/24 (Colace) cyclobenzaprine 10 mg tablet 10 mg PO BID #60 tabs 06/26/24 colchicine 0.6 mg tablet (Colcrys) 0.6 mg PO ONCE #6 tabs 07/04/24 morphine 15 mg immediate release 15 mg PO Q8H PRN pain #10 tabs 07/04/24 tablet Allergies Allergy/AdvReac Type Severity Reaction Status Date / Time amoxicillin Allergy Severe yeast Verified 07/04/24 09:11 infection, itching gabapentin Allergy Severe Swelling Verified 07/04/24 09:11 baclofen Allergy Intermediate Swelling, Verified 07/04/24 09:11 sob lamotrigine Allergy Unknown Swelling Verified 07/04/24 09:11 Meloxicam Allergy Severe swelling Uncoded 07/04/24 08:41 [facility] Past Medical History Medical History (Updated 07/04/24 @ 12:27 by Jason Dalton MD) CVA (cerebral vascular accident) Seizure Personal history of nicotine dependence Cervicalgia Chronic migraine without aura, intractable, without status migrainosus History of low back pain Hx of myocardial infarction (~11/2022) Hx of migraines CKD (chronic kidney disease) History of blood transfusion (~04/2023) Weakness of both legs History of seizures Major depressive disorder, recurrent Internal hernia Excess skin of upper extremity Lipoma History of lipoma Sleep apnea with use of continuous positive airway pressure (CPAP) Hypercholesterolemia Type 2 diabetes mellitus Anemia Lymphedema Migraines Anxiety Back pain Arthritis Carpal tunnel syndrome Body mass index (BMI) of 32.0-32.9 in adult Obesity (BMI 30-39.9) Intestinal malabsorption following gastrectomy H/O nephrolithotomy with removal of calculi Surgical History Hx of cataract surgery S/P brachioplasty S/P panniculectomy History of dental surgery (~06/2023) H/O hernia repair History of gastric surgery Hx of colonoscopy Hx of lumpectomy H/O cervical discectomy History of Zane-en-Y gastric bypass S/P carpal tunnel release Hx of section S/P knee replacement History of back surgery Family History Family History Father No problems noted. Mother Arthritis Brother No problems noted. Brother No problems noted. Sister No problems noted. Sister No problems noted. Sister No problems noted. Sister No problems noted. Son No problems noted. Daughter No problems noted. Social History 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, ONLINE ADVERTISING DIRECTOR Housing: House Are you a primary medicare interviewer to a significant other at home: No Do you presently have visiting nurse or other home services: Yes (ONLINE ADVERTISING DIRECTOR 4 hrs/day) Alcohol intake: former Patient Tobacco Use Status: Former Tobacco user Tobacco use type: Cigarette Years Smoked: (former smoker 20pyh quit 2018) Advance Directives: Yes Advance Directives on File: Yes Advance Directives Date on File: 07/04/21 service: No Current occupational status: disabled Physical Exam Vital Signs: Vital Signs: Last Vital Signs Temp 97.1 F 07/04/24 09:09 Pulse 77 07/04/24 09:09 Resp 16 07/04/24 09:09 BP 117/41 L 07/04/24 09:09 Pulse Ox 99 07/04/24 09:09 O2 Del Method Room Air 07/04/24 09:09 BMI result Body Mass Index 37.4 Vital signs were normal Exam: Right foot: Patient does have increased warmth over the 1st through 3rd toes with no significant erythema, patient has exquisite tenderness with palpation of the 1st MTP joint and moderate tenderness palpation of the 2nd and 3rd MTP joints. No obvious deformity. Extremities neurovascularly intact Medications Administered Discontinued Medications Generic Name Dose Route Start Last Admin Trade Name Paxton PRN Reason Stop Dose Admin Morphine Sulfate 15 mg 07/04/24 12:23 07/04/24 12:39 Morphine Sulfate Immed Release 15 Mg Tablet PO 07/04/24 12:24 15 mg ONCE ONE Administration Medical Decision Making Medical Decision Making MDM Narrative: 59-year-old female with a history of CVA, seizures, myocardial infarction, anemia, anxiety, who presents emergency department for evaluation of pain in her right foot x2 weeks, no injury, patient points to the 1st through 3rd MTP joints when asked to localize the pain. Vital signs were normal. Examination revealed exquisite tenderness with palpation of the 1st MTP joint and moderate tenderness palpation of the than a 2nd and 3rd MTP joints. Differential diagnosis: ?Includes but is not limited to gout, cellulitis, fracture Course: The patient's x-ray revealed no acute fracture. Patient's findings are consistent with gout of the 1st through 3rd MTP joints of the right foot. I did discuss this with the patient. Patient was started on Colcrys was 0.6 mg, 2 pills followed by 1 pill 1 hour later with repeat in 3 days if she continues to have pain. She was also advised to take Tylenol 1000 mg 3 times a day as needed for pain. For pain not relieved by Colcrys and Tylenol she was prescribed morphine 15 mg every 8 hours as needed for pain. She was given a dose of m orphine 15 mg orally here in the emergency department. She was given printed and verbal instructions and discharged home. Admission/Observation Consideration of admission/observation: Escalation of care including admission/observation considered (No) Independent Interpretation I performed an independent interpretation of an: Plain X-Ray Interpretation: My interpretation of the patient's three-view right foot x-ray is as follows: No fracture seen Radiology Impression Discussion of test interpretation with radiology: I have reviewed the radiologist's reading. Radiologist Impression: XR foot RT 2V IMPRESSION: No acute findings or fractures. Electronically signed by: Celso Carrizales MD 07/04/2024 09:45 AM EST Prescription Management I considered prescription management with: Pain Medication (Morphine) and Other (Anti-inflammatory medication: Colcrys) Chronic Conditions Patient?s care impacted by: Other (Seizure disorder) Discharge Plan Discharge Clinical Impression: Acute gout of right foot Patient Disposition: Home, Self-Care Instructions: Gout (ED) Additional Instructions: Your x-ray of your right foot and toes did not reveal any broken bones which is reassuring. The tenderness of your joints of your toe are consistent with gout. Follow the printed gout instructions Take Colcrys (colchicine) 0.6 mg pills, 2 pills then 1 pill 3 days prior. This medication last 3 days and if you are still having pain, use can repeat this dose in 3 days. Take Tylenol (acetaminophen) 500 mg pills, 2 pills every 6 hours as needed for pain. For pain not relieved by Colcrys or Tylenol take morphine 15 mg pills, 1 pill every 6 hours as needed for pain. This medication will make you sleepy, do not drive or work while taking this medication. Morphine is a narcotic medication and can be addicting. If you are concerned about addiction you can ask the pharmacist for less pills or do not get this prescription filled. Follow-up with your doctor in 2 days. Please return to the emergency department if your symptoms get worse or if you develop any symptoms that are concerning to you. Prescriptions: New colchicine [Colcrys] 0.6 mg tablet 0.6 mg PO ONCE Qty: 6 0RF Rx Instructions: 1.2 mg orally, then 1 hour later take 0.6 mg orally, may repeat in 3 days morphine 15 mg tablet 15 mg PO Q8H PRN (Reason: pain) Qty: 10 0RF Rx Instructions: Partial Fill upon patient request. No Action cholecalciferol (vitamin D3) [Vitamin D3] 125 mcg (5,000 unit) tablet 125 mcg PO DAILY 90 Days Qty: 90 2RF trazodone 150 mg tablet 150 mg PO ONCE tramadol 25 mg tablet 25 mg PO Q6H MDD 4 tabs PRN (Reason: pain) Qty: 20 0RF riboflavin (vitamin B2) [Vitamin B-2] 100 mg tablet 200 mg PO BID 28 Days Qty: 112 11RF sennosides [Natural Senna Laxative] 8.6 mg tablet 17.2 mg PO BEDTIME Qty: 60 5RF docusate sodium [Colace] 100 mg capsule 100 mg PO DAILY Qty: 90 0RF cyclobenzaprine 10 mg tablet 10 mg PO BID Qty: 60 0RF oxycodone-acetaminophen 5-325 mg tablet 1 tab PO Q6H PRN (Reason: pain, severe) Qty: 5 0RF Rx Instructions: Partial Fill upon patient request. (DME) blood pressure monitor Kit See Rx Instructions .Route Qty: 1 0RF Rx Instructions: Check BP bid and prn lightheadedness levetiracetam 500 mg tablet 500 mg PO BID cetirizine [All Day Allergy (cetirizine)] 10 mg tablet 10 mg PO DAILY PRN (Reason: Allergy Symptoms) pantoprazole 40 mg tablet,delayed release (DR/EC) 40 mg PO DAILY 90 Days Qty: 90 4RF escitalopram oxalate 5 mg tablet 5 mg PO DAILY valacyclovir 1 gram tablet 1,000 mg PO DAILY lurasidone 120 mg tablet 120 mg PO DAILY Linzess 145 mcg capsule 145 mcg PO DAILY nortriptyline 25 mg capsule 25 mg PO BID cyanocobalamin (vitamin B-12) 100 mcg tablet 200 mcg PO DAILY celecoxib 200 mg capsule 200 mg PO DAILY Print Language: Syriac
[2024-07-04 12:35] VITALS: BP 122/64; PULSE 76; RESP 20; O2SAT 100
[2024-07-04] MEDS: Morphine Sulfate Immed Release 15 MG TABLET PO (12:39)
[2024-07-04 12:54] VITALS: BP 122/64; PULSE 76; RESP 20; TEMP -17.7; TEMP 0; O2SAT 100
--- OUTSIDE RECORDS SUMMARY | 2024-07-04 14:08 | XMS_ITS | Clinical Summary ---
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 21 each 05/22/2024 Active Encounters Date Type Department Care Team Description 05/28/2024 11:34 AM EST - 05/28/2024 2:01 PM [facility] Emergency [facility] [address] [place] [phone] Encounter for assessment of Mora catheter (Primary Dx) Discharge Disposition: Home or Self Care 05/22/2024 8:48 AM EST - 05/22/2024 2:42 PM [facility] Emergency [facility] [address] [place] [phone] Adolph Martinez MD Swelling of both lower extremities (Primary Dx); Urinary retention Discharge Disposition: Home or Self Care from Last 3 Months Surgical History Surgery Date Site/Laterality Comments BACK SURGERY 1999 PROCEDURE: HISTORICAL BACK SURGERY; COMMENT: L5 fusion Dr Issa at [facility] GASTRIC BYPASS PROCEDURE: GASTRIC BYPASS FOR OBESIT; COMMENT: performed one yr ago COLONOSCOPY PROCEDURE: HISTORICAL COLONOSCOPY COLONOSCOPY PROCEDURE: HISTORICAL COLONOSCOPY; COMMENT: Performed on November 28, 2020 HERNIA REPAIR PROCEDURE: KS REPAIR FIRST ABDOMINAL WALL HERNIA Medical History Medical History Date Comments Asthma DX:Asthma Depression DX:Depression Anxiety DX:Anxiety Constipation DX:Constipation; COMMENT: colace daily Arthritis DX:Arthritis Hyperlipidemia DX:Hyperlipidemi a HTN (hypertension) DX:HTN (hyper tension) Anemia DX:Anemia Osteoporosis DX:Osteoporosis Abdominal pain DX:Abdominal martha n Abdominal bloating DX:Abdominal bloating Social History Tobacco Use Types Packs/Day Years Used Date Smoking Tobacco: Former Cigarettes Smokeless Tobacco: Never Alcohol Use Standard Drinks/Week Comments Yes 0 (1 standard drink = 0.6 oz pur e alcohol) Sex and Gender Information Value Date Recorded Sex Assigned at Female 05/28/2024 12:44 PM EST Gender Identity Female 05/28/2024 12:44 PM EST Sexual Orientation Not on file Job Start Date Occupation Industry Not on file Not on file Not on file Obstetrics History Last Filed Vital Signs Vital Sign Reading Time Taken Comments Blood Pressure 98/58 05/28/2024 1:58 PM EST Pulse 79 05/28/2024 1:58 PM EST Temperature 36.7 ??C (98 ??F) 05/28/2024 1:58 PM EST Respiratory Rate 17 05/28/2024 1:58 PM EST Oxygen Saturation 100% 05/28/2024 1:58 PM EST Inhaled Oxygen Concentration - - Weight 95.7 kg (211 lb) 05/28/2024 10:58 AM EST Height 167.6 cm (5' 6 ) 05/28/2024 10:58 AM EST Body Mass Index 34.06 05/28/2024 10:58 AM EST Plan of Treatment Health Maintenance Due Date Last Done Comments Hepatitis B Vaccines (1 of 3 - 19+ 3-dose series) 1986 Cervical Cancer Screening: Pap Smear 1988 Pneumococcal Vaccine: Pediatrics (0 to 5 Years) and At-Risk Patients (6 to 64 Years) (2 of 2 - PCV) 04/05/2020 04/05/2019 Cholesterol Screening (Lipid Panel) 05/23/2022 Colorectal Cancer Screening: Colonoscopy 05/23/2022 Depression Screening 05/23/2022 HIV Screening 05/23/2022 Hepatitis C Screening 05/23/2022 Social Influencers of Health Screening 05/23/2022 COVID-19 Vaccine ( season) 2024 07/10/2023, 12/23/2021, 03/31/2021, Additional history exists Influenza Vaccine (#1) 2024 4, 05/23/2022, 03/31/2021, Additional history exists Breast Cancer Screening 04/29/2024 04/29/20 22, 04/22/2021, 03/12/2020, Additional history exists Hypertension/CHF/CAD Annual BMP Blood Test 05/21/2025 05/21/2024, 01/12/2023, 01/05/2023, Additional history exists DTaP,Tdap,and Td Vaccines (5 - Td or Tdap) 05/23/2032 05/23/2022, 12/24/2021, 05/14/2017, Additional history exists Zoster Vaccines Completed 12/23/2021, 02/2020, 03/16/2020 HIB Vaccines Aged Out No longer eligi ble based on patient's age to complete this topic HPV Vaccines Aged Out No longer eligi ble based on patient's age to complete this topic Hepatitis A Vaccines Aged Out No long er eligible based on patient's age to complete this topic IPV Vaccines Aged Out No longer eligi ble based on patient's age to complete this topic MMR Vaccines Aged Out No longer eligi ble based on patient's age to complete this topic Meningococcal ACWY Vaccine Aged Out N o longer eligible based on patient's age to complete this topic RSV Immunization Patients Under 20 months Aged Out No longer eligible based on patient's age to complete this topic Varicella Vaccines Aged Out No longer eligible based on patient's age to complete this topic Procedures Procedure Name Priority Date/Time Associated Diagnosis Comments KENNY URINE CULTURE TUBE STAT 05/28/2024 12:46 PM EST URINALYSIS WITH REFLEX MICROSCOPIC AND CULTURE STAT 05/28/2024 12:46 PM EST URINALYSIS WITH REFLEX MICROSCOPIC AND CULTURE STAT 05/28/2024 12:46 PM EST CULTURE URINE STAT 05/28/2024 12:46 PM EST KENNY URINE CULTURE TUBE STAT 05/22/2024 12:55 PM EST URINALYSIS WITH REFLEX MICROSCOPIC AND CULTURE STAT 05/22/2024 12:55 PM EST URINALYSIS WITH REFLEX MICROSCOPIC AND CULTURE STAT 05/22/2024 12:55 PM EST VAS US DUPLEX LOWER EXT VENOUS BILAT Routine 05/22/2024 11:02 AM EST Swelling of both lower extremities XR CHEST 2 VIEWS STAT 05/22/2024 4:07 AM EST ECG 12-LEAD STAT 05/21/2024 6:20 PM EST TROPONIN I HIGH SENSITIVITY STAT 05/21/2024 6:15 PM EST ECG 12-LEAD STAT 05/21/2024 3:35 PM EST CBC WITH AUTO DIFFERENTIAL STAT 05/21/2024 3:27 PM EST B-TYPE NATRIURETIC PEPTIDE STAT 05/21/2024 3:27 PM EST MAGNESIUM STAT 05/21/2024 3:27 PM EST LIPASE STAT 05/21/2024 3:27 PM EST COMPREHENSIVE METABOLIC PANEL STAT 05/21/2024 3:27 PM EST CBC AND DIFFERENTIAL STAT 05/21/2024 3:27 PM EST TROPONIN I HIGH SENSITIVITY STAT 05/21/2024 3:27 PM EST GERARDO SCREENING DIGITAL Routine 04/29/2022 1:05 PM EST Encounter for screening mammogram for malignant neoplasm of breast from Last 3 Months or Most Recently Relevant to Health Maintenance Results * (ABNORMAL) Urinalysis with reflex microscopic and culture (05/28/2024 12:46 PM EST) Only the most recent of2 resultswithin the time period is included. Specific [place] Urine 1.027 1.003 - 1.030 LAB URINALYSIS - AUTOMATED METHOD 05/28/2024 1:25 PM [facility] pH, Urine 7.0 5.0 - 8.0 pH LAB URINALYSIS - AUTOMATED METHOD 05/28/2024 1:25 PM [facility] Leukocytes, Urine Moderate(A) Negative LAB URINALYSIS - AUTOMATED METHOD 05/28/2024 1:25 PM [facility] Nitrite, Urine Negative Negative LAB URINALYSIS - AUTOMATED METHOD 05/28/2024 1:25 PM [facility] Protein, Urine 30(A) <=Trace mg/dL LAB URINALYSIS - AUTOMATED METHOD 05/28/2024 1:25 PM [facility] Glucose, Urine >=1000(A) Negative mg/dL LAB URINALYSIS - AUTOMATED METHOD 05/28/2024 1:25 PM [facility] Ketones, Urine Negative Negative mg/dL LAB URINALYSIS - AUTOMATED METHOD 05/28/2024 1:25 PM [facility] Urobilinogen , Urine 0.2 0.2 - 1.0 mg/dL LAB URINALYSIS - AUTOMATED METHOD 05/28/2024 1:25 PM [facility] Bilirubin, Urine Small(A) Negative LAB URINALYSIS - AUTOMATED METHOD 05/28/2024 1:25 PM [facility] Blood, Urine Moderate(A) Negative LAB URINALYSIS - AUTOMATED METHOD 05/28/2024 1:25 PM [facility] RBC, Urine 185.1(H) 0 - 4 /HPF LAB URINALYSIS - AUTOMATED METHOD 05/28/2024 1:25 PM [facility] WBC, Urine 262.1(H) 0 - 4 /HPF LAB URINALYSIS - AUTOMATED METHOD 05/28/2024 1:25 PM [facility] Squamous Epithelial, Urine 26 0 - 60 /LPF LAB URINALYSIS - AUTOMATED METHOD 05/28/2024 1:25 PM [facility] Bacteria, Urine Many(A) Negative /HPF LAB URINALYSIS - AUTOMATED METHOD 05/28/2024 1:25 PM [facility] Hyaline Casts, Urine 0.0 0 - 3 /LPF LAB URINALYSIS - AUTOMATED METHOD 05/28/2024 1:25 PM [facility] Urine Urine specimen obtained by clean catch procedure / Unknown Non-blood Collection / Unknown 05/28/2024 12:46 PM EST 05/28/2024 1:02 PM EST Surjit Chang MD LAB URINE ORDERABLES Performing Organization Address City/[facility]/ZIP Co de Phone Number [facility] [address] [place] [address], [place] [phone] * Kenny urine culture tube (05/28/2024 12:46 PM EST) Only the most recent of2 resultswithin the time period is included. Extra Tube Hold for add-ons. 05/28/2024 3:01 PM [facility] Comment:Auto resulted. Urine Urine specimen obtained by clean catch procedure / Unknown Non-blood Collection / Unknown 05/28/2024 12:46 PM EST 05/28/2024 1:02 PM EST Surjit Chang MD LAB URINE ORDERABLES Performing Organization Address City/[facility]/ZIP Co de Phone Number [facility] [address] [place] [address], [place] [phone] * (ABNORMAL) Culture urine (05/28/2024 12:46 PM EST) Culture, Urine >100,000 CFU/mL Staphylococcus saprophyticus(A) NOHEMI 05/30/2024 10:47 AM EST [facility] Comment: This is an edited result. Previous organism was Staphylococcus coagulase negative on 05/29/2024 at 1045 EST. Urine Urine specimen obtained by clean catch procedure / Unknown Non-blood Collection / Unknown 05/28/2024 12:46 PM EST 05/28/2024 1:25 PM EST Narrative Organism Antibiotic Method Susceptibility Staphylococcus saprophyticus Benzylpenicillin NOHEMI >=0.5 ug/ml: Resistant Staphylococcus saprophyticus Oxacillin NOHEMI >=4 ug/ml: Resistant Staphylococcus saprophyticus Gentamicin NOHEMI <=0.5 ug/ml: Susceptible Staphylococcus saprophyticus Ciprofloxacin NOHEMI <=0.5 ug/ml: Susceptible Staphylococcus saprophyticus Levofloxacin NOHEMI 0.5 ug/ml: Susceptible Staphylococcus saprophyticus Vancomycin NOHEMI <=0.5 ug/ml: Susceptible Staphylococcus saprophyticus Tetracycline NOHEMI <=1 ug/ml: Susceptible Staphylococcus saprophyticus Nitrofurantoin NOHEMI <=16 ug/ml: Susceptible Staphylococcus saprophyticus Rifampin NOHEMI <=0.5 ug/ml: Susceptible Surjit Chang MD LAB MICROBIOLOGY - G ENERAL ORDERABLES [facility] [address] [place] [address], * Vascular US duplex lower extremity venous bilateral (05/22/2024 11:02 AM EST) Anatomical Region Laterality Modality Vascular, Abdomen Ultrasound 05/22/2024 11:1 4 AM EST Impressions 05/22/2024 11:14 AM EST No evidence of deep vein thrombosis. -------- FINAL REPORT -------- Dictated By: Mateus Otero Dictated Date: 05/22/2024 11:14 ET Assigned Physician: Mateus Otero Reviewed and Electronically Signed By: Mateus Otero Signed Date: 05/22/2024 11:14 ET Workstation ID: [id number] Transcribed By: Self Edit Transcribed Date: 05/22/2024 11:14 ET Narrative 05/22/2024 11:14 AM EST Ultrasound duplex venous study bilateral lower extremity TECHNIQUE: Grayscale and color imaging with spectral analysis was performed of the region of interest INDICATION: Pain COMPARISON: None FINDINGS: The veins appear normal throughout the bilateral lower extremity. ??Normal venous flow. ??Normal compressibility. ??Soft tissues appear normal. ??No evidence of thrombosis. Procedure Note Mateus Otero MD - 05/22/2024 Ultrasound duplex venous study bilateral lower extremity TECHNIQUE: Grayscale and color imaging with spectral analysis wasperformed of the region of interest INDICATION: Pain COMPARISON: None FINDINGS: The veins appear normal throughout the bilateral lower extremity. Normalvenous flow. Normal compressibility. Soft tissues appear normal. Noevidence of thrombosis. IMPRESSION: No evidence of deep vein thrombosis. -------- FINAL REPORT -------- Dictated By: Mateus Otero Dictated Date: 05/22/2024 11:14 ET Assigned Physician: Mateus Otero Reviewed and Electronically Signed By: Mateus Otero Signed Date: 05/22/2024 11:14 ET Workstation ID: [id number] Transcribed By: Self Edit Transcribed Date: 05/22/2024 11:14 ET Adolph Martinez MD CV VASCULAR PROCEDU RES * XR Chest 2 Views (05/22/2024 4:07 AM EST) Anatomical Region Laterality Modality Body Radiographic Yuliana ging 05/22/2024 7:34 AM EST Impressions 05/22/2024 7:37 AM EST Stable exam. No acute process. -------- FINAL REPORT -------- Dictated By: J Luis Briseno Dictated Date: 05/22/2024 07:34 ET Assigned Physician: J Luis Briseno Reviewed and Electronically Signed By: J Luis Briseno Signed Date: 05/22/2024 07:37 ET Workstation ID: [id number] Transcribed By: Self Edit Transcribed Date: 05/22/2024 07:34 ET Narrative 05/22/2024 7:37 AM EST EXAMINATION: Chest upright 2 views. CLINICAL INDICATION: Chest pain. COMPARISON: Chest 12/29/2023. FINDINGS: The lungs are hypoexpanded but clear of acute pneumonic process. Heart size and pulmonary vascularity is normal. There is a posterior spinal stimulator centered from T8 through T9 vertebra. There is old healed left posterior eighth rib fracture. No lytic or sclerotic process seen. Procedure Note J Luis Briseno MD - 05/22/2024 EXAMINATION: Chest upright 2 views. CLINICAL INDICATION: Chest pain. COMPARISON: Chest 12/29/2023. FINDINGS: The lungs are hypoexpanded but clear of acute pneumonic process.Heart size and pulmonary vascularity is normal. There is a posteriorspinal stimulator centered from T8 through T9 vertebra. There is oldhealed left posterior eighth rib fracture. No lytic or sclerotic processseen. IMPRESSION: Stable exam. No acute process. -------- FINAL REPORT -------- Dictated By: J Luis Briseno Dictated Date: 05/22/2024 07:34 ET Assigned Physician: J Luis Briseno Reviewed and Electronically Signed By: J Luis Briseno Signed Date: 05/22/2024 07:37 ET Workstation ID: [id number] Transcribed By: Self Edit Transcribed Date: 05/22/2024 07:34 ET Adolph Martinez MD IMG XR PROCEDURES * ECG 12 lead (05/21/2024 6:20 PM EST) Only the most recent of2 resultswithin the time period is included. Ventricular Rate ECG 96 BPM GEMUSE Atrial Rate 96 BPM GEMUSE P-R Interval 118 ms GEMUSE QRS Duration 80 ms GEMUSE Q-T Interval 370 ms GEMUSE QTc 467 ms GEMUSE P Wave [place] 47 degrees GEMUSE R [place] -3 degrees GEMUSE T [place] 24 degrees GEMUSE ECG Interpretation Normal sinus rhythm Voltage criteria for left ventricular hypertrophy Abnormal ECG When compared with ECG of 21-MAY-2024 15:35, No significant change was found Confirmed by MD Leonel, Mateus ([id number]) on 05/22/2024 9:48:15 PM GEMUSE 05/21/2024 6:20 PM EST 05/22/2024 9:48 PM EST Adolph Martinez MD ECG ORDERABLES GEMUSE * Troponin I high sensitivity (05/21/2024 6:15 PM EST) Only the most recent of2 resultswithin the time period is included. [facility] High Sensitivity Troponin I 4 <=54 ng/L LAB CHEMISTRY METHOD 05/21/2024 6:52 PM EST [facility] Blood Venous blood specimen / Unknown Venipuncture / Unknown 05/21/2024 6:15 PM EST 05/21/2024 6:28 PM EST Narrative [facility] - 05/21/2024 6:52 PM EST High levels of biotin in samples may falsely decrease hsTroponin values. ??Use caution when interpreting hsTroponin results in patients taking biotin who exhibit renal impairment (eGFR <60) or in patients taking more than 20 mg/day of biotin. Adolph Martinez MD LAB BLOOD ORDERABLE S [facility] [address] [place] [address], * (ABNORMAL) CBC auto differential (05/21/2024 3:27 PM EST) [facility] WBC 9.8 4.8 - 10.8 K/mcL LAB HEMETOLOGY METHOD 05/21/2024 3:44 PM EST [facility] RBC 4.20 3.80 - 4.80 M/mcL LAB HEMETOLOGY METHOD 05/21/2024 3:44 PM EST [facility] Hemoglobin 11.3(L) 11.5 - 16.0 g/dL LAB HEMETOLOGY METHOD 05/21/2024 3:44 PM [facility] Hematocrit 37.2 35.0 - 47.0 % LAB HEMETOLOGY METHOD 05/21/2024 3:44 PM [facility] MCV 87.9 79.0 - 98.0 FL LAB HEMETOLOGY METHOD 05/21/2024 3:44 PM [facility] MCH 26.7(L) 27.0 - 32.0 pcg LAB HEMETOLOGY METHOD 05/21/2024 3:44 PM [facility] MCHC 30.4(L) 32.0 - 37.0 g/dL LAB HEMETOLOGY METHOD 05/21/2024 3:44 PM [facility] RDW 14.6 11.0 - 15.0 % LAB HEMETOLOGY METHOD 05/21/2024 3:44 PM [facility] Platelets 160 130 - 400 K/mcL LAB HEMETOLOGY METHOD 05/21/2024 3:44 PM [facility] MPV 10.6 7.0 - 11.0 FL LAB HEMETOLOGY METHOD 05/21/2024 3:44 PM [facility] NRBC 0.0 <1.0 % LAB HEMETOLOGY METHOD 05/21/2024 3:44 PM [facility] NRBC Absolute 0.00 <0.10 K/mcL LAB HEMETOLOGY METHOD 05/21/2024 3:44 PM [facility] Neutrophils Relative 63.1 % LAB HEMETOLOGY METHOD 05/21/2024 3:44 PM [facility] Lymphocytes Relative 28.8 % LAB HEMETOLOGY METHOD 05/21/2024 3:44 PM [facility] Monocytes Relative 6.1 % LAB HEMETOLOGY METHOD 05/21/2024 3:44 PM [facility] Eosinophils Relative 1.4 % LAB HEMETOLOGY METHOD 05/21/2024 3:44 PM EST [facility] Basophils Relative 0.2 % LAB HEMETOLOGY METHOD 05/21/2024 3:44 PM EST [facility] Immature Granulocytes Relative 0.4 % LAB HEMETOLOGY METHOD 05/21/2024 3:44 PM [facility] Neutrophils Absolute 6.15 1.50 - 7.00 K/mcL LAB HEMETOLOGY METHOD 05/21/2024 3:44 PM EST [facility] Lymphocytes Absolute 2.81 1.00 - 5.00 K/mcL LAB HEMETOLOGY METHOD 05/21/2024 3:44 PM EST [facility] Monocytes Absolute 0.59 0.20 - 1.00 K/mcL LAB HEMETOLOGY METHOD 05/21/2024 3:44 PM EST [facility] Eosinophils Absolute 0.14 0.00 - 0.50 K/mcL LAB HEMETOLOGY METHOD 05/21/2024 3:44 PM EST [facility] Basophils Absolute 0.02 0.00 - 0.20 K/mcL LAB HEMETOLOGY METHOD 05/21/2024 3:44 PM EST [facility] Immature Granulocytes Absolute 0.04(H) 0.00 - 0.03 K/mcL LAB HEMETOLOGY METHOD 05/21/2024 3:44 PM EST [facility] Blood Venous blood specimen / Unknown Venipuncture / Unknown 05/21/2024 3:27 PM EST 05/21/2024 3:36 PM EST Adolph Martinez MD LAB BLOOD ORDERABLE S [facility] [address] [place] [address], * B-type natriuretic peptide (05/21/2024 3:27 PM EST) BNP 7 <=100 pcg/mL LAB CHEMISTRY METHOD 05/21/2024 4:15 PM EST [facility] Blood Venous blood specimen / Unknown Venipuncture / Unknown 05/21/2024 3:27 PM EST 05/21/2024 3:36 PM EST Adolph Martinez MD LAB BLOOD ORDERABLE S [facility] [address] [place] [address], [place] [phone] * Magnesium (05/21/2024 3:27 PM EST) Magnesium 2.1 1.9 - 2.6 mg/dL LAB CHEMISTRY METHOD 05/21/2024 4:06 PM EST [facility] Blood Venous blood specimen / Unknown Venipuncture / Unknown 05/21/2024 3:27 PM EST 05/21/2024 3:36 PM EST Aodlph Martinez MD LAB BLOOD ORDERABLE S Performing Organization Address City/[facility]/ZIP Co de Phone Number [facility] [address] [place] [address], [place] [phone] * Lipase (05/21/2024 3:27 PM EST) Lipase 17 13 - 75 unit/L LAB CHEMISTRY METHOD 05/21/2024 4:06 PM EST [facility] Blood Venous blood specimen / Unknown Venipuncture / Unknown 05/21/2024 3:27 PM EST 05/21/2024 3:36 PM EST Adolph Martinez MD LAB BLOOD ORDERABLE S Performing Organization Address City/[facility]/ZIP Co de Phone Number [facility] [address] [place] [address], [place] [phone] * (ABNORMAL) Comprehensive metabolic panel (05/21/2024 3:27 PM EST) Sodium 140 133 - 145 mmol/L LAB CHEMISTRY METHOD 05/21/2024 4:06 PM [facility] Potassium 4.1 3.5 - 5.5 mmol/L LAB CHEMISTRY METHOD 05/21/2024 4:06 PM [facility] Chloride 107 96 - 110 mmol/L LAB CHEMISTRY METHOD 05/21/2024 4:06 PM [facility] CO2 26 21 - 32 mmol/L LAB CHEMISTRY METHOD 05/21/2024 4:06 PM [facility] Anion Gap 7 3 - 11 LAB CHEMISTRY METHOD 05/21/2024 4:06 PM [facility] Glucose 76 70 - 100 mg/dL LAB CHEMISTRY METHOD 05/21/2024 4:06 PM [facility] BUN 24 5 - 25 mg/dL LAB CHEMISTRY METHOD 05/21/2024 4:06 PM [facility] Creatinine 0.96 0.50 - 1.10 mg/dL LAB CHEMISTRY METHOD 05/21/2024 4:06 PM [facility] eGFR 70 >=60 mL/min/1. 73m2 LAB CHEMISTRY METHOD 05/21/2024 4:06 PM [facility] Comment:Calculation based on the??Chronic Kidney Disease Epidemiology Collaboration (CKD-EPI) equation refit??without adjustment for race. BUN/Creatinine Ratio 25.0 LAB CHEMISTRY METHOD 05/21/2024 4:06 PM [facility] Calcium 8.4(L) 8.5 - 10.5 mg/dL LAB CHEMISTRY METHOD 05/21/2024 4:06 PM [facility] AST (SGOT) 20 10 - 42 unit/L LAB CHEMISTRY METHOD 05/21/2024 4:06 PM [facility] ALT (SGPT) 31 10 - 60 unit/L LAB CHEMISTRY METHOD 05/21/2024 4:06 PM [facility] Alkaline Phosphatase 165(H) 42 - 121 unit/L LAB CHEMISTRY METHOD 05/21/2024 4:06 PM EST [facility] Total Protein 6.4 6.0 - 8.0 g/dL LAB CHEMISTRY METHOD 05/21/2024 4:06 PM [facility] Albumin 3.2 3.2 - 5.0 g/dL LAB CHEMISTRY METHOD 05/21/2024 4:06 PM [facility] Total Bilirubin 0.2 0.0 - 1.4 mg/dL LAB CHEMISTRY METHOD 05/21/2024 4:06 PM [facility] Blood Venous blood specimen / Unknown Venipuncture / Unknown 05/21/2024 3:27 PM EST 05/21/2024 3:36 PM EST Adolph Martinez MD LAB BLOOD ORDERABLE S Performing Organization Address City/State/[place] Co de Phone Number [facility] [address] [place] [address], * GERARDO SCREENING DIGITAL (04/29/2022 1:05 PM EST) Anatomical Region Laterality Modality Mammography 04/29/2022 11:0 5 AM EST Narrative 04/29/2022 1:05 PM [facility] Diagnostic Imaging Department [address] [place] [address] Patient: ??RAFAL NEGRON ?/Age/Sex: 1965 - 56 - F Unit#: ??[id number] ? Location/Status: ??SPDIMAM/REG CLI ? Mnemonic/Ordering Site: ??DIGSC/SPMAM Ordering Physician: ??CARRI NUNEZ MD Gerardo Screening Digital - 04/29/22 - 1138 INDICATION: SCREENING COMPARISON: [facility] mammograms dating back to ?? 11/22/2014 TECHNIQUE: CC and MLO views of the breasts were obtained, using full field digital mammography with 3D tomosynthesis views in the MLO projection. Computer aided detection with the [employer] was employed. FINDINGS: The breasts contain heterogeneously dense tissues, which may lower sensitivity of mammography in this patient. No suspicious masses, suspicious microcalcifications, or areas of architectural distortion are identified. ??There are no secondary signs of breast malignancy. Rare benign-appearing breast calcifications are present bilaterally. IMPRESSION: ??No specific mammographic evidence of breast malignancy. Lack of an imaging correlate should not deter or delay biopsy of a clinically significant palpable finding. BI-RADS ??- Category 2 - Benign finding 3342F, 7025F Annual screening mammography is recommended. Patient entered into a reminder system with a target date for the next mammogram. ([id number] / [id number]) , ??[id number] Dictating Physician: ??AMAN SANTOYO MD Electronically Signed by: ??AMAN SANTOYO MD Dic Date/Time: ??04/29/22 1302 Sign date/Time: ??04/29/22 1305 Procedure Note Aman Santoyo MD - 07/16/2023 [facility] Diagnostic Imaging Department [address] [place] [id number] Patient: RAFAL NEGRON /Age/Sex: 1965 - 56 - F Unit#: [id number] Location/Status: SPDIMAM/REG CLI Mnemonic/Ordering Site: [facility] Ordering Physician: CARRI NUNEZ MD Gerardo Screening Digital - 04/29/22 - 1138 INDICATION: SCREENING COMPARISON: [facility] mammograms dating back to 11/22/2014 TECHNIQUE: CC and MLO views of the breasts were obtained, using full field digital mammography with 3D tomosynthesis views in the MLO projection. Computer aided detection with the [employer] was employed. FINDINGS: The breasts contain heterogeneously dense tissues, which may lowersensitivity of mammography in this patient. No suspicious masses, suspicious microcalcifications, or areas ofarchitectural distortion are identified. There are no secondary signs of breastmalignancy. Rare benign-appearing breast calcifications are present bilaterally. IMPRESSION: No specific mammographic evidence of breast malignancy. Lack of an imaging correlate should not deter or delay biopsy of aclinically significant palpable finding. BI-RADS - Category 2 - Benign finding 3342F, 7025F Annual screening mammography is recommended. Patient entered into a reminder system with a target date for the next mammogram. 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 Health Care Decision (hx) 06/21/2022 AD TALAMANTES DIRECTIVE Health Care Decision (hx) 06/21/2022 AD TALAMANTES DIRECTIVE Health Care Decision (hx) 06/21/2022 AD TALAMANTES DIRECTIVE Health Care Decision (hx) 06/21/2022 AD TALAMANTES DIRECTIVE Health Care Decision (hx) 06/21/2022 AD TALAAMNTES DIRECTIVE Health Care Decision (hx) 06/21/2022 AD TALAMANTES DIRECTIVE Health Care Decision (hx) 06/21/2022 AD TALAMANTES DIRECTIVE Health Care Decision (hx) 06/21/2022 AD TALAMANTES DIRECTIVE Health Care Decision (hx) 06/21/2022 AD TALAMANTES DIRECTIVE Health Care Decision (hx) 06/21/2022 AD TALAMANTES DIRECTIVE Health Care Decision (hx) 06/21/2022 AD TALAMANTES DIRECTIVE Care Teams Cotton 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
== END 2024-07-04 12:55 | disposition home or self-care (01) ==
PROVIDERS: Emergency Provider Emergency Medicine Emergency Medical Services; PCP Internal Medicine
DX: M10.071 Idiopathic gout, right ankle and foot (principal); M79.671 Pain in right foot; Z79.899 Other long term (current) drug therapy
CPT/HCPCS: 73620; 99283

== ENCOUNTER → 2024-07-04 09:35 | Outpatient (BNV) | payer MEDICAID, SELFPAY | PROVIDERS: PCP Internal Medicine; Visit Provider Radiology Diagnostic Radiology | DX: M79.671 Pain in right foot (principal); M77.31 Calcaneal spur, right foot | CPT/HCPCS: 73620 ==

== ENCOUNTER 2024-07-17 12:39 | Outpatient (AMB) | payer MEDICAID, SELFPAY ==
--- NOTE | 2024-07-17 12:50 | A.OFFVIS_ITS ---
Vital Signs 07/17/24 13:02 Height 5 ft 6 in Weight 232 lb 5.875 oz BMI 37.5 BP 138/62 Blood Pressure Location Rt brachial Position Sitting Pulse 92 Pulse Source Pulse Oximeter Pulse Oximetry (%) 99 Oxygen Delivery Method Room Air Intake Visit Reasons: 6 month follow up Intake Note: ESTABLISHED PATIENT for Constipation mgmt. Chief Complaint; Epigastric pain, mild + intermittent SOB, denies any burning from the reflux. Constipation still reported as well per last visit. Pt denies any other concerns. School Admissions Representative Required: No Accompanied by: Self / Same As Patient Allergies amoxicillin Allergy (Severe, Verified 07/17/24 12:51) yeast infection, itching gabapentin Allergy (Severe, Verified 07/17/24 12:51) Swelling meloxicam Allergy (Severe, Verified 07/17/24 12:51) Swelling baclofen Allergy (Intermediate, Verified 07/17/24 12:51) Swelling, sob lamotrigine Allergy (Unknown, Verified 07/17/24 12:51) Swelling HPI HPI 6 month follow up: Details: LAST VISIT: Constipation GERD (gastroesophageal reflux disease) Plan Continue pantoprazole. Avoid dietary triggers and late night snacking. Staying upright for minimum 3 hours after meals discussed with patient. Patient will start taking senna. Increase fluid intake and activity to promote better bowel motility. Follow-up in the office in 6 months, sooner on as needed basis. She is agreeable to this plan and verbalizes understanding of instructions. She was given the opportunity to ask questions and all questions answered. ? Thank you for allowing me to participate in her care Medications New sennosides (Natural Senna Laxative) 17.2 mg (2 x 8.6 mg) PO BEDTIME 60 tabs 5RF constipation K59.00 Refilled pantoprazole 40 mg PO DAILY 90 days 90 tabs 4RF TODAY'S VISIT Patient is here today for follow-up. Patient reports that she has been doing better. Acid reflux is controlled with pantoprazole. Couple episodes of epigastric pain upon awakening. Patient also reports abdominal pain occasionally. Upper abdomen discomfort, cramping, occasionally stabbing like pain. History of mesenteric hernia repair back in 2020. Patient reports that she is moving her bowels, however she admits that she does not feel like she empties well. Still feels constipated. Currently is taking Linzess 145 mcg. Patient denies any nausea or vomiting. Reports to have good appetite. Denies melena, hematochezia, unintentional weight loss or ribbon like stools. Patient will be due to go for colonoscopy this year due to suboptimal prep on colonoscopy June 2023. Patient denies melena, hematochezia. Denies any dyspepsia, dysphagia or odynophagia. [facility] Medical History CVA (cerebral vascular accident) Seizure Personal history of nicotine dependence Cervicalgia Chronic migraine without aura, intractable, without status migrainosus History of low back pain Hx of myocardial infarction (~11/2022) Hx of migraines CKD (chronic kidney disease) History of blood transfusion (~04/2023) Weakness of both legs History of seizures Major depressive disorder, recurrent Internal hernia Excess skin of upper extremity Lipoma History of lipoma Sleep apnea with use of continuous positive airway pressure (CPAP) Hypercholesterolemia Type 2 diabetes mellitus Anemia Lymphedema Migraines Anxiety Back pain Arthritis Carpal tunnel syndrome Body mass index (BMI) of 32.0-32.9 in adult Obesity (BMI 30-39.9) Intestinal malabsorption following gastrectomy H/O nephrolithotomy with removal of calculi Surgical History Hx of cataract surgery S/P brachioplasty S/P panniculectomy History of dental surgery (~06/2023) H/O hernia repair History of gastric surgery Hx of colonoscopy Hx of lumpectomy H/O cervical discectomy History of Zane-en-Y gastric bypass S/P carpal tunnel release Hx of section S/P knee replacement History of back surgery Family History Father No problems noted. Mother Arthritis Brother No problems noted. Brother No problems noted. Sister No problems noted. Sister No problems noted. Sister No problems noted. Sister No problems noted. Son No problems noted. Daughter No problems noted. 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, MALE INFERTILITY SPECIALIST Caregiver staying overnight: No Housing: House Are you a primary home care giver to a significant other at home: No Do you presently have visiting nurse or other home services: Yes (MALE INFERTILITY SPECIALIST 4 hrs/day) Alcohol intake: former Patient Tobacco Use Status: Former Tobacco user Tobacco use type: Cigarette Years Smoked: (former smoker 20pyh quit 2018) Advance Directives Date on File: 07/04/21 service: No Current occupational status: disabled Review of Systems Const Denies weight gain and Denies weight loss ENT Reports no additional complaints, Denies dysphagia and Denies odynophagia Card Reports no additional complaints Resp Reports no additional complaints GI Reports abdominal pain (epigastric), Denies belching, Denies melena, Denies bloating, Denies change in bowel habits, Reports constipation, Denies dysphagia, Denies excessive flatus, Denies dyspepsia, Denies heartburn, Denies diarrhea, Denies loose stools, Denies nausea, Denies odynophagia and Denies vomiting Reports no additional complaints Musc Reports no additional complaints Neuro Reports no additional complaints Psych Reports no additional complaints Endo Reports no additional complaints Physical Exam Vital Signs: Last Vital Signs Pulse 92 07/17/24 13:02 BP 138/62 07/17/24 13:02 Pulse Ox 99 07/17/24 13:02 Oxygen Delivery Method Room Air 07/17/24 13:02 BMI result Body Mass Index 37.5 Const Other: Ambulating using a wheeled walker General: healthy appearing and no acute distress Nutritional Appearance: obese Orientation/consciousness: patient oriented x3 Resp Effort & Inspection: normal respiratory effort, able to speak in complete sentences, no tracheal deviation and symmetric chest movement Auscultation: clear to auscultation bilaterally Cardio Rate: regular rate GI Other: surgical scar Inspection: No distended Palpation (GI): Soft to palpation, not firm, Tenderness to palpation present (GI) (Above umbilical area) and No hepatosplenomegaly present Auscultation: normal bowel sounds General: Yes no CVA tenderness Back/Spine/Pelvis Back: no CVA tenderness Skin General skin exam: elasticity normal, turgor normal and dry skin Neuro General: patient oriented x3 Psych Appearance: grossly normal Mental Status: mental status grossly normal Assessment & Plan Assessment & Plan (1) Constipation: Code(s): K59.00 - Constipation, unspecified Category: Medical Qualifiers: Constipation type: slow transit constipation Qualified Code(s): K59.01 - Slow transit constipation (2) Abdominal pain: Code(s): R10.9 - Unspecified abdominal pain Category: Medical Qualifiers: Abdominal location: epigastric Qualified Code(s): R10.13 - Epigastric pain (3) GERD (gastroesophageal reflux disease): Code(s): K21.9 - Gastro-esophageal reflux disease without esophagitis Qualifiers: Esophagitis presence: esophagitis presence not specified Qualified Code(s): K21.9 - Gastro-esophageal reflux disease without esophagitis Plan Continue pantoprazole daily. Avoid dietary triggers and late night snacking. Staying upright for minimum 3 hours after meals discussed with patient. Increase Linzess to 290 daily. Increase fluid intake and activity to promote better bowel motility. Patient reports abdominal pain. Will order CT scan. Patient has tender area around her surgical scar on her upper abdomen. Patient will follow-up in 6 months and we will discuss going for colonoscopy. She is agreeable to this plan and verbalizes understanding of instructions. She was given the opportunity to ask questions and all questions answered. Thank you for allowing me to participate in her care Orders: Orders CT abdomen pelvis w IV con Today R10.9 - Unspecified abdominal pain Blood Urea Nitrogen Today R10.11 - Right upper quadrant pain Creatinine Today R10.11 - Right upper quadrant pain Medications: New linaclotide (Linzess) 290 mcg PO QAM 30 caps 4RF K59.00 - Constipation, unspecified Coding Level of Care Code Est Pt Level 3 (50893) Diagnoses Slow transit constipation K59.01 Constipation type: slow transit constipation Abdominal pain R10.13 Abdominal location: epigastric Gastroesophageal reflux disease, unspecified whether esophagitis present K21.9 Esophagitis presence: esophagitis presence not specified Time Spent (min) 30 Comment 20 minutes spent with patient and additional 10 minutes spent reviewing her records
[2024-07-17 13:02] VITALS: BP 138/62; PULSE 92; O2SAT 99; BMI 37.5
--- OUTSIDE RECORDS SUMMARY | 2024-07-17 13:58 | XMS_ITS | Clinical Summary ---
Author Organization [facility] Address [address] [place] [address] Phone Care Team Providers Care Web Site Project Manager Name Role Phone Carri Nunez MD Primary Care Provider [phone] Allergies Active Allergy Reactions Criticality Noted Date [...] 11:34 AM EST - 05/28/2024 2:01 PM [facility] Emergency [facility] Emergency [address] [place] [phone] Encounter for assessment of Mora catheter (Primary Dx) Discharge Disposition: Home or Self Care 05/22/2024 8:48 AM EST - 05/22/2024 2:42 PM [facility] Emergency [facility] Emergency [address] [place] [phone] Adolph Martinez MD Swelling of both lower extremities (Primary Dx); Urinary retention Discharge Disposition: Home or Self Care from Last 3 Months Surgical History Surgery Date Site/Laterality Comments BACK SURGERY 1999 PROCEDURE: HISTORICAL BACK SURGERY; COMMENT: L5 fusion Dr Issa at [facility] GASTRIC BYPASS PROCEDURE: GASTRIC BYPASS FOR OBESIT; COMMENT: performed one yr ago COLONOSCOPY PROCEDURE: HISTORICAL COLONOSCOPY COLONOSCOPY PROCEDURE: HISTORICAL COLONOSCOPY; COMMENT: Performed on November 28, 2020 HERNIA REPAIR PROCEDURE: [place] REPAIR FIRST ABDOMINAL WALL HERNIA Medical History [...] resultswithin the time period is included. Specific [place] Urine 1.027 1.003 - 1.030 LAB URINALYSIS - AUTOMATED METHOD 05/28/2024 1:25 PM [facility] pH, Urine 7.0 5.0 - 8.0 pH LAB URINALYSIS - AUTOMATED METHOD 05/28/2024 1:25 PM [facility] Leukocytes, Urine Moderate(A) Negative LAB URINALYSIS - AUTOMATED METHOD 05/28/2024 1:25 PM [facility] Nitrite, Urine Negative Negative LAB URINALYSIS - AUTOMATED METHOD 05/28/2024 1:25 PM [facility] Protein, Urine 30(A) <=Trace mg/dL LAB URINALYSIS - AUTOMATED METHOD 05/28/2024 1:25 PM [facility] Glucose, Urine >=1000(A) Negative mg/dL LAB URINALYSIS - AUTOMATED METHOD 05/28/2024 1:25 PM [facility] Ketones, Urine Negative Negative mg/dL LAB URINALYSIS - AUTOMATED METHOD 05/28/2024 1:25 PM [facility] Urobilinogen , Urine 0.2 0.2 - 1.0 mg/dL LAB URINALYSIS - AUTOMATED METHOD 05/28/2024 1:25 PM [facility] Bilirubin, Urine Small(A) Negative LAB URINALYSIS - AUTOMATED METHOD 05/28/2024 1:25 PM [facility] Blood, Urine Moderate(A) Negative LAB URINALYSIS - AUTOMATED METHOD 05/28/2024 1:25 PM [facility] RBC, Urine 185.1(H) 0 - 4 /HPF LAB URINALYSIS - AUTOMATED METHOD 05/28/2024 1:25 PM [facility] WBC, Urine 262.1(H) 0 - 4 /HPF LAB URINALYSIS - AUTOMATED METHOD 05/28/2024 1:25 PM [facility] Squamous Epithelial, Urine 26 0 - 60 /LPF LAB URINALYSIS - AUTOMATED METHOD 05/28/2024 1:25 PM [facility] Bacteria, Urine Many(A) Negative /HPF LAB URINALYSIS - AUTOMATED METHOD 05/28/2024 1:25 PM [facility] Hyaline Casts, Urine 0.0 0 - 3 /LPF LAB URINALYSIS - AUTOMATED METHOD 05/28/2024 1:25 PM [facility] Urine Urine specimen obtained by clean catch procedure / Unknown Non-blood Collection / Unknown 05/28/2024 12:46 PM EST 05/28/2024 1:02 PM EST Surjit Chang MD LAB URINE ORDERABLES Performing Organization Address City/[facility]/ZIP Co de Phone Number [facility] [address] [place] [address], [place] [phone] * Kenny urine culture tube (05/28/2024 12:46 PM EST) Only the most recent of2 resultswithin the time period is included. Extra Tube Hold for add-ons. 05/28/2024 3:01 PM [facility] Comment:Auto resulted. Urine Urine specimen obtained by clean catch procedure / Unknown Non-blood Collection / Unknown 05/28/2024 12:46 PM EST 05/28/2024 1:02 PM EST Surjit Chang MD LAB URINE ORDERABLES Performing Organization Address City/[facility]/ZIP Co de Phone Number [facility] [address] [place] [address], [place] [phone] * (ABNORMAL) Culture urine (05/28/2024 12:46 PM EST) Culture, Urine >100,000 CFU/mL Staphylococcus saprophyticus(A) NOHEMI 05/30/2024 10:47 AM EST [facility] ([facility]) [facility] Comment: This is an edited [...] MD LAB MICROBIOLOGY - G ENERAL ORDERABLES [facility] ([facility]) [facility] [address] [place] [address], * Vascular US duplex lower extremity venous [...] Signed Date: 05/22/2024 11:14 ET Workstation ID: [id number] Transcribed By: Self Edit Transcribed Date: 05/22/2024 [...] Signed Date: 05/22/2024 11:14 ET Workstation ID: [id number] Transcribed By: Self Edit Transcribed Date: 05/22/2024 [...] Signed Date: 05/22/2024 07:37 ET Workstation ID: [id number] Transcribed By: Self Edit Transcribed Date: 05/22/2024 [...] Signed Date: 05/22/2024 07:37 ET Workstation ID: [id number] Transcribed By: Self Edit Transcribed Date: 05/22/2024 [...] GEMUSE QTc 467 ms GEMUSE P Wave [place] 47 degrees GEMUSE R [place] -3 degrees GEMUSE T [place] 24 degrees GEMUSE ECG Interpretation Normal sinus [...] of2 resultswithin the time period is included. [facility] High Sensitivity Troponin I 4 <=54 ng/L LAB CHEMISTRY METHOD 05/21/2024 6:52 PM EST [facility] Blood Venous blood specimen / Unknown Venipuncture / Unknown 05/21/2024 6:15 PM EST 05/21/2024 6:28 PM EST Narrative [facility] - 05/21/2024 6:52 PM EST High levels of biotin in samples may falsely decrease hsTroponin values. ??Use caution when interpreting hsTroponin results in patients taking biotin who exhibit renal impairment (eGFR <60) or in patients taking more than 20 mg/day of biotin. Adolph Martinez MD LAB BLOOD ORDERABLE S [facility] [address] [place] [address], * (ABNORMAL) CBC auto differential (05/21/2024 3:27 PM EST) [facility] WBC 9.8 4.8 - 10.8 K/mcL LAB HEMETOLOGY METHOD 05/21/2024 3:44 PM EST [facility] RBC 4.20 3.80 - 4.80 M/mcL LAB HEMETOLOGY METHOD 05/21/2024 3:44 PM EST [facility] Hemoglobin 11.3(L) 11.5 - 16.0 g/dL LAB HEMETOLOGY METHOD 05/21/2024 3:44 PM [facility] Hematocrit 37.2 35.0 - 47.0 % LAB HEMETOLOGY METHOD 05/21/2024 3:44 PM [facility] MCV 87.9 79.0 - 98.0 FL LAB HEMETOLOGY METHOD 05/21/2024 3:44 PM [facility] MCH 26.7(L) 27.0 - 32.0 pcg LAB HEMETOLOGY METHOD 05/21/2024 3:44 PM [facility] MCHC 30.4(L) 32.0 - 37.0 g/dL LAB HEMETOLOGY METHOD 05/21/2024 3:44 PM [facility] RDW 14.6 11.0 - 15.0 % LAB HEMETOLOGY METHOD 05/21/2024 3:44 PM [facility] Platelets 160 130 - 400 K/mcL LAB HEMETOLOGY METHOD 05/21/2024 3:44 PM [facility] MPV 10.6 7.0 - 11.0 FL LAB HEMETOLOGY METHOD 05/21/2024 3:44 PM [facility] NRBC 0.0 <1.0 % LAB HEMETOLOGY METHOD 05/21/2024 3:44 PM [facility] NRBC Absolute 0.00 <0.10 K/mcL LAB HEMETOLOGY METHOD 05/21/2024 3:44 PM [facility] Neutrophils Relative 63.1 % LAB HEMETOLOGY METHOD 05/21/2024 3:44 PM [facility] Lymphocytes Relative 28.8 % LAB HEMETOLOGY METHOD 05/21/2024 3:44 PM [facility] Monocytes Relative 6.1 % LAB HEMETOLOGY METHOD 05/21/2024 3:44 PM [facility] Eosinophils Relative 1.4 % LAB HEMETOLOGY METHOD 05/21/2024 3:44 PM EST [facility] Basophils Relative 0.2 % LAB HEMETOLOGY METHOD 05/21/2024 3:44 PM EST [facility] Immature Granulocytes Relative 0.4 % LAB HEMETOLOGY METHOD 05/21/2024 3:44 PM [facility] Neutrophils Absolute 6.15 1.50 - 7.00 K/mcL LAB HEMETOLOGY METHOD 05/21/2024 3:44 PM EST [facility] Lymphocytes Absolute 2.81 1.00 - 5.00 K/mcL LAB HEMETOLOGY METHOD 05/21/2024 3:44 PM EST [facility] Monocytes Absolute 0.59 0.20 - 1.00 K/mcL LAB HEMETOLOGY METHOD 05/21/2024 3:44 PM EST [facility] Eosinophils Absolute 0.14 0.00 - 0.50 K/mcL LAB HEMETOLOGY METHOD 05/21/2024 3:44 PM EST [facility] Basophils Absolute 0.02 0.00 - 0.20 K/mcL LAB HEMETOLOGY METHOD 05/21/2024 3:44 PM EST [facility] Immature Granulocytes Absolute 0.04(H) 0.00 - 0.03 K/mcL LAB HEMETOLOGY METHOD 05/21/2024 3:44 PM EST [facility] Blood Venous blood specimen / Unknown Venipuncture / Unknown 05/21/2024 3:27 PM EST 05/21/2024 3:36 PM EST Adolph Martinez MD LAB BLOOD ORDERABLE S [facility] [address] [place] [address], * B-type natriuretic peptide (05/21/2024 3:27 PM EST) BNP 7 <=100 pcg/mL LAB CHEMISTRY METHOD 05/21/2024 4:15 PM EST [facility] Blood Venous blood specimen / Unknown Venipuncture / Unknown 05/21/2024 3:27 PM EST 05/21/2024 3:36 PM EST Adolph Martinez MD LAB BLOOD ORDERABLE S [facility] [address] [place] [address], [place] [phone] * Magnesium (05/21/2024 3:27 PM EST) Magnesium 2.1 1.9 - 2.6 mg/dL LAB CHEMISTRY METHOD 05/21/2024 4:06 PM EST [facility] Blood Venous blood specimen / Unknown Venipuncture / Unknown 05/21/2024 3:27 PM EST 05/21/2024 3:36 PM EST Adolph Martinez MD LAB BLOOD ORDERABLE S Performing Organization Address City/[facility]/ZIP Co de Phone Number [facility] [address] [place] [address], [place] [phone] * Lipase (05/21/2024 3:27 PM EST) Lipase 17 13 - 75 unit/L LAB CHEMISTRY METHOD 05/21/2024 4:06 PM EST [facility] Blood Venous blood specimen / Unknown Venipuncture / Unknown 05/21/2024 3:27 PM EST 05/21/2024 3:36 PM EST Adolph Martinez MD LAB BLOOD ORDERABLE S Performing Organization Address City/[facility]/ZIP Co de Phone Number [facility] [address] [place] [address], [place] [phone] * (ABNORMAL) Comprehensive metabolic panel (05/21/2024 3:27 PM EST) Sodium 140 133 - 145 mmol/L LAB CHEMISTRY METHOD 05/21/2024 4:06 PM [facility] Potassium 4.1 3.5 - 5.5 mmol/L LAB CHEMISTRY METHOD 05/21/2024 4:06 PM [facility] Chloride 107 96 - 110 mmol/L LAB CHEMISTRY METHOD 05/21/2024 4:06 PM [facility] CO2 26 21 - 32 mmol/L LAB CHEMISTRY METHOD 05/21/2024 4:06 PM [facility] Anion Gap 7 3 - 11 LAB CHEMISTRY METHOD 05/21/2024 4:06 PM [facility] Glucose 76 70 - 100 mg/dL LAB CHEMISTRY METHOD 05/21/2024 4:06 PM [facility] BUN 24 5 - 25 mg/dL LAB CHEMISTRY METHOD 05/21/2024 4:06 PM [facility] Creatinine 0.96 0.50 - 1.10 mg/dL LAB CHEMISTRY METHOD 05/21/2024 4:06 PM [facility] eGFR 70 >=60 mL/min/1. 73m2 LAB CHEMISTRY METHOD 05/21/2024 4:06 PM [facility] Comment:Calculation based on the??Chronic Kidney Disease Epidemiology Collaboration (CKD-EPI) equation refit??without adjustment for race. BUN/Creatinine Ratio 25.0 LAB CHEMISTRY METHOD 05/21/2024 4:06 PM [facility] Calcium 8.4(L) 8.5 - 10.5 mg/dL LAB CHEMISTRY METHOD 05/21/2024 4:06 PM [facility] AST (SGOT) 20 10 - 42 unit/L LAB CHEMISTRY METHOD 05/21/2024 4:06 PM [facility] ALT (SGPT) 31 10 - 60 unit/L LAB CHEMISTRY METHOD 05/21/2024 4:06 PM [facility] Alkaline Phosphatase 165(H) 42 - 121 unit/L LAB CHEMISTRY METHOD 05/21/2024 4:06 PM EST [facility] Total Protein 6.4 6.0 - 8.0 g/dL LAB CHEMISTRY METHOD 05/21/2024 4:06 PM [facility] Albumin 3.2 3.2 - 5.0 g/dL LAB CHEMISTRY METHOD 05/21/2024 4:06 PM [facility] Total Bilirubin 0.2 0.0 - 1.4 mg/dL LAB CHEMISTRY METHOD 05/21/2024 4:06 PM [facility] Blood Venous blood specimen / Unknown Venipuncture / Unknown 05/21/2024 3:27 PM EST 05/21/2024 3:36 PM EST Adolph Martinez MD LAB BLOOD ORDERABLE S Performing Organization Address City/State/[facility] Co de Phone Number [facility] [address] [place] [address], * GERARDO SCREENING DIGITAL (04/29/2022 1:05 PM EST) Anatomical Region Laterality Modality Mammography 04/29/2022 11:0 5 AM EST Narrative 04/29/2022 1:05 PM [facility] Diagnostic Imaging Department [address] [place] [address] Patient: ??RAFAL NEGRON ?/Age/Sex: 1965 - 56 - F Unit#: ??[id number] ? Location/Status: ??SPDIMAM/REG CLI ? Mnemonic/Ordering Site: ??DIGSC/SPMAM Ordering Physician: ??CARRI NUNEZ MD Gerardo Screening Digital - 04/29/22 - 1138 INDICATION: SCREENING COMPARISON: [facility] mammograms dating back to ?? 11/22/2014 TECHNIQUE: CC and MLO views of the breasts were obtained, using full field digital mammography with 3D tomosynthesis views in the MLO projection. Computer aided detection with the [employer] was employed. FINDINGS: The breasts contain heterogeneously [...] date for the next mammogram. (G0202 / [id number]) , ??[id number] Dictating Physician: ??AMAN SANTOYO MD Electronically Signed by: ??AMAN SANTOYO MD Dic Date/Time: ??04/29/22 1302 Sign date/Time: ??04/29/22 1305 Procedure Note Aman Santoyo MD - 07/16/2023 [facility] Diagnostic Imaging Department [address] [place] [id number] Patient: RAFAL NEGRON /Age/Sex: 1965 - 56 - F Unit#: [id number] Location/Status: SPDIMAM/REG CLI Mnemonic/Ordering Site: [facility] Ordering Physician: CARRI NUNEZ MD Gerardo Screening Digital - 04/29/22 - 1138 INDICATION: SCREENING COMPARISON: [facility] mammograms dating back to 11/22/2014 TECHNIQUE: CC and MLO views of the breasts were obtained, using full field digital mammography with 3D tomosynthesis views in the MLO projection. Computer aided detection with the [employer] was employed. FINDINGS: The breasts contain [...] a target date for the next mammogram. G0204 / [id number]) , [id number] Dictating Physician: AMAN SANTOYO MD Electronically Signed by: AMAN SANTOYO MD Dic Date/Time: 04/29/22 1302 Sign date/Time: 04/29/22 1301 Carri Nunez MD IMG BI PROCEDURES from Last 3 Months or Most Recently Relevant to Health Maintenance Advance Directives Documents on File Type Date Recorded Patient School Nurse Expl anation Health Care Decision (hx) 06/21/2022 [...] (hx) 06/21/2022 AD TALAMANTES DIRECTIVE Care Teams Web Site Project Manager Relationship Specialty Start Date End Date Carri Nunez MD [address] PCP - General 11/07/09
== END 2024-07-17 13:20 | disposition home or self-care (01) ==
PROVIDERS: PCP Internal Medicine; Visit Provider Nurse Practitioner Family
DX: K59.01 Slow transit constipation (principal); R10.13 Epigastric pain; K21.9 Gastro-esophageal reflux disease without esophagitis
CPT/HCPCS: 99213

== ENCOUNTER → 2024-07-17 12:39 | Outpatient (BNVA) | payer MEDICAID, SELFPAY | PROVIDERS: PCP Internal Medicine; Visit Provider Nurse Practitioner Family | DX: K59.01 Slow transit constipation (principal); K21.9 Gastro-esophageal reflux disease without esophagitis; R10.13 Epigastric pain | CPT/HCPCS: 99212 ==

== ENCOUNTER 2024-08-04 10:38 | Outpatient (AMB) | payer MEDICAID, SELFPAY ==
--- NOTE | 2024-08-04 11:20 | MHC.OFFVIS ---
Vital Signs 08/04/24 11:23 Height 5 ft 6 in Weight 232 lb BMI 37.4 Intake Visit Reasons: PO LT 1st DC release 06/08/24 AR Intake Note: Olga is a 59 year old female who presents today for a post operative follow up s/p left 1st dorsal compartment release, DOS 06/08/24 w/ Dr Lua. Patient also received a Right De Quervains injection on 07/04/23 with Colton Harris. Patient reports having a lump at incision site and having tenderness to the touch. States she is unable to hold items or do at home hand exercises without having pain. States this has been present since after her surgery. Allergies amoxicillin Allergy (Severe, Verified 08/04/24 11:24) yeast infection, itching gabapentin Allergy (Severe, Verified 08/04/24 11:24) Swelling meloxicam Allergy (Severe, Verified 08/04/24 11:24) Swelling baclofen Allergy (Intermediate, Verified 08/04/24 11:24) Swelling, sob lamotrigine Allergy (Unknown, Verified 08/04/24 11:24) Swelling HPI HPI PO LT 1st DC release 06/08/24 AR: Details: Olga is a 59 year old right hand dominant woman who complains of left radial sided wrist, S/P left 1st dorsal compartment release, DOS: 06/08/24. She complains of pain, hypersensitivity, and a lump at her incision site. She says this has been present since her surgery and is bothersome. She also has right De Quervains, and received a steroid injection by KINDRA Segura on 07/04/24, with [ ] relief. She has not attended OT hand therapy that Colton ordered for her prior to her injection. [facility] Medical History (Updated 08/04/24 @ 11:53 by Avtar Duke) Major depressive disorder, recurrent CVA (cerebral vascular accident) Seizure Personal history of nicotine dependence Cervicalgia Chronic migraine without aura, intractable, without status migrainosus History of low back pain Hx of myocardial infarction (~11/2022) Hx of migraines CKD (chronic kidney disease) History of blood transfusion (~04/2023) Weakness of both legs History of seizures Internal hernia Excess skin of upper extremity Lipoma History of lipoma Sleep apnea with use of continuous positive airway pressure (CPAP) Hypercholesterolemia Type 2 diabetes mellitus Anemia Lymphedema Migraines Anxiety Back pain Arthritis Carpal tunnel syndrome Body mass index (BMI) of 32.0-32.9 in adult Obesity (BMI 30-39.9) Intestinal malabsorption following gastrectomy H/O nephrolithotomy with removal of calculi Surgical History Hx of cataract surgery S/P brachioplasty S/P panniculectomy History of dental surgery (~06/2023) H/O hernia repair History of gastric surgery Hx of colonoscopy Hx of lumpectomy H/O cervical discectomy History of Zane-en-Y gastric bypass S/P carpal tunnel release Hx of section S/P knee replacement History of back surgery Family History Father No problems noted. Mother Arthritis Brother No problems noted. Brother No problems noted. Sister No problems noted. Sister No problems noted. Sister No problems noted. Sister No problems noted. Son No problems noted. Daughter No problems noted. 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, NURSING CLINICAL DIRECTOR Caregiver staying overnight: No Housing: House Are you a primary daycare manager to a significant other at home: No Do you presently have visiting nurse or other home services: Yes (NURSING CLINICAL DIRECTOR 4 hrs/day) Alcohol intake: former Patient Tobacco Use Status: Former Tobacco user Tobacco use type: Cigarette Years Smoked: (former smoker 20pyh quit 2018) Advance Directives Date on File: 07/04/21 service: No Current occupational status: disabled Review of Systems Const All systems reviewed & are unremarkable except as noted in HPI and below Physical Exam Vital Signs: BMI result Body Mass Index 37.4 Const General: no acute distress and alert Orientation/consciousness: patient oriented x3 Neuro General: patient oriented x3 Extrem Other: Evaluation of Left Upper Extremity: The patient is alert, oriented, and in no acute distress Neuro: Median, Ulnar, Radial nerves motor and sensory intact and sensation is normal to the tips of all digits Vascular: Cap refill brisk ROM: She can make a fist and extend all her digits No locking or catching Tender over the the left 1st dorsal compartment. Hypersensitivity to light touch over the incision site Healed surgical incision over the 1st dorsal compartment , no evidence of infection Positive Zeny test on the left Psych Appearance: grossly normal Affect: normal affect Attitude: cooperative Assessment & Plan Assessment & Plan (1) De Quervain's tenosynovitis, bilateral: Code(s): M65.4 - Radial styloid tenosynovitis [de Quervain] Category: Medical (2) Arthritis of carpometacarpal (CMC) joint of left thumb: Code(s): M18.12 - Unilateral primary osteoarthritis of first carpometacarpal joint, left hand Category: Medical (3) Left hand pain: Code(s): M79.642 - Pain in left hand Category: Medical (4) Stiffness of joints of both hands: Code(s): M25.641 - Stiffness of right hand, not elsewhere classified; M25.642 - Stiffness of left hand, not elsewhere classified Category: Medical (5) Major depressive disorder, recurrent: Code(s): F33.9 - Major depressive disorder, recurrent, unspecified Category: Medical Plan Assessment & Plan: 1. Left hand pain, S/P 1st dorsal compartment release DOS: 06/08/24 2. Left De Quervain's Tenosynovitis, S/P 1st dorsal compartment release DOS: 06/08/24 3. Left basal joint arthritis 4. Bilateral hand stiffness I educated her about the post-operative course I discussed treatment options I recommend activity modification & OT hand therapy She says she has not been contacted by OT hand therapy to begin attending. She should touch about her incision site and the rest of her hand to work on Desensitization I ordered OT hand therapy to work on desensitization, stretching, ROM, and normalizing function She will work on gentle finger & wrist ROM exercises at home, 20X daily She will follow up in 6-8 weeks to see how she is doing 5. Right De Quervain Tenosynovitis, S/P injection Date of injection: 07/04/24 by KINDRA Segura No complaints today Scribed for Inessa Lua MD by Avtar Duke, medical physics researcher, on 08/04/24 at 12:15 PM, EST. Orders: Orders OT Evaluation and Treatment Today M65.4 - Radial styloid tenosynovitis [de Quervain], M79.642 - Pain in left hand Coding Level of Care Code Global (59554) Diagnoses De Quervain's tenosynovitis, bilateral M65.4 Arthritis of carpometacarpal (CMC) joint of left thumb M18.12 Left hand pain M79.642 Stiffness of joints of both hands M25.641; M25.642 Major depressive disorder, recurrent F33.9
[2024-08-04 11:23] VITALS: BMI 37.4
--- OUTSIDE RECORDS SUMMARY | 2024-08-04 11:38 | XMS_ITS | Encounter Summary ---
Author Organization [place] [address] Care Team Providers Care Transportation Program Director Name Role Phone Carri Reynoso MD Primary Care Provider [phone] Reason for Visit * Reason Comments Chest Pain Cough Encounter Details Date Type Department Care Team (Late st Contact Info) Description 07/21/2024 9:37 PM EST - 07/22/2024 3:[address] [facility] Emergency [address] [place] [address] Pleurisy (Primary Dx); Viral upper respiratory tract infection; Anterior chest wall pain Discharge Disposition: Home or Self Care Social History Tobacco Use Types Packs/Day Years Used Date Smoking Tobacco: Former Cigarettes Smokeless Tobacco: Never Alcohol Use Standard Drinks/Week Comments Yes 0 (1 standard drink = 0.6 oz pur e alcohol) Comments Unknown Sex and Gender Information Value Date Recorded Sex Assigned at Female 05/28/2024 12:44 PM EST Legal Sex Female 10:51 AM EST Gender Identity Female 05/28/2024 12:44 PM EST Sexual Orientation Straight 07/21/2024 10 :08 PM EST documented as of this encounter Last Filed Vital Signs Vital Sign Reading Time Taken Comments Blood Pressure 112/60 07/22/2024 3:30 AM EST Pulse 99 07/22/2024 3:30 AM EST Temperature 37.7 ??C (99.9 ??F) 07/22/2024 2:05 AM ES T Respiratory Rate 15 07/22/2024 3:30 AM EST Oxygen Saturation 97% 07/22/2024 3:30 AM EST Inhaled Oxygen Concentration - - Weight 95.3 kg (210 lb) 07/21/2024 10:59 PM EST Height 170.2 cm (5' 7 ) 07/21/2024 10:59 PM EST Body Mass Index 32.89 07/21/2024 10:59 PM EST documented in this encounter Discharge Instructions * Discharge Instructions* KINDRA Gutierrez - 07/22/2024 3:16 AM EST Thank you for choosing [facility]'s Emergency Department for your care today. At this time there is no indication for admission to the hospital or continued ED observation, and it is safe to discharge you home. Thankfully your laboratory evaluation, CT, EKG, and exam today are all reassuring. There is no evidence of any acute infectious, metabolic, pulmonary, cardiac, coagulopathic (blood clot), pancreatic,or other emergent cause for your symptoms. Your testing is negative for influenza, COVID, and RSV. Your chest pain is reproducible with pushing on your chest and with cough. Your symptoms are likely secondary to inflammation of your chest wall and diaphragm from coughing secondary to a viral upper respiratory infection. We have treated you with a lidocaine patch, please leave this in place for 10 hours and then removefor 10 hours prior to applying a new patch. You may take 1 g of Tylenol every 6 hours as needed forpain. Please stay well-hydrated and get plenty of rest. Please follow up with your primary care physician for re-evaluation, additional management of your symptoms, and continued preventative care. If you do not have a primary care physician, please call the [facility] at [phone] toestablish a new primary care physician. Please return to the emergency department if you develop a sudden severe change in your symptoms, afever over 100.4,, severe or recurrent vomiting,, or a sudden increase in pain, or if you experience any other new or worsening symptoms or concerns. * Attachments The following attachments cannot be sent through Care Everywhere. * Chest Pain: Musculoskeletal (Dominican) * Pleurisy (Dominican) * URI (Upper Respiratory Infection): Viral (Dominican) documented in this encounter Discharge Disposition Disposition Code Departure Means Destination Comment s Home or Self Care Discharge reviewed and understood, pt self ambulated to exit documented in this encounter Progress Notes * Maura Pinon RN - 07/21/2024 9:49 PM EST Pt arrives via EMS from home with reports of CP x 1 hour and cough since this AM. CP worse with deep inspiration and coughing. * KINDRA Gutierrez - 07/21/2024 9:20 PM EST Emergency Medicine Note Patient Name: Yaneth Ware Initial Evaluation: 07/21/2024 : 1965 Patient's PCP: Carri Reynoso MD Emergency Physician: KINDRA Gutierrez History of Present Illness Chief Complaint: Chief Complaint Patient presents with ??? Chest Pain ??? 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 The patient reports at around 3 PM she developed associated epigastric and substernal chest pain which was worse with deep respiration and cough. The patient denies associated recent sick contacts, fever/chills, nausea, vomiting, hemoptysis, or recent trauma. The patient also reports she recently developed right lower extremity swelling and pain which she attributes to recurrent knee problems, earlier this week had a steroid injection of the right knee to treat the swelling and pain. The patient has not taken any medication for symptoms today. ROS: I have performed a ROS with the pertinent positives and negatives documented in the history ofpresent illness. Previous History Past Medical History: Diagnosis Date ??? Abdominal bloating DX:Abdominal bloating ??? Abdominal pain DX:Abdominal pain ??? Anemia DX:Anemia ??? Anxiety DX:Anxiety ??? Arthritis DX:Arthritis ??? Asthma DX:Asthma ??? Constipation DX:Constipation; COMMENT: colace daily ??? Depression DX:Depression ??? HTN (hypertension) DX:HTN (hypertension) ??? Hyperlipidemia DX:Hyperlipidemia ??? Osteoporosis DX:Osteoporosis Past Surgical History: Procedure Laterality Date ??? BACK SURGERY 1999 PROCEDURE: HISTORICAL BACK SURGERY; COMMENT: L5 fusion Dr Issa at [facility] ??? COLONOSCOPY PROCEDURE: HISTORICAL COLONOSCOPY ??? COLONOSCOPY PROCEDURE: HISTORICAL COLONOSCOPY; COMMENT: Performed on November 28, 2020 ??? GASTRIC BYPASS PROCEDURE: GASTRIC BYPASS FOR OBESIT; COMMENT: performed one yr ago ??? HERNIA REPAIR PROCEDURE: NV REPAIR FIRST ABDOMINAL WALL HERNIA Social History Tobacco Use ??? Smoking status: Former Current packs/day: 0.30 Types: Cigarettes ??? Smokeless tobacco: Never Substance Use Topics ??? Alcohol use: Yes ??? Drug use: No No family history on file. is allergic to meloxicam, amoxicillin, clonidine hcl, and gabapentin. No current facility-administered medications on file prior to encounter. Current Outpatient Medications on File Prior to Encounter Medication Sig Dispense Refill ??? furosemide (LASIX) 20 mg tablet Take 3 tablets (60 mg total) by mouth 1 (one) time each day for7 days. 21 each 0 Physical Exam Vitals: 07/21/24 2258 07/21/24 2259 07/21/24 2335 07/22/24 0050 BP: (!) 150/62 136/63 130/68 BP Location: Left arm;Upper Left arm;Upper Patient Position: Lying Lying Pulse: 105 108 104 Resp: 23 19 18 Temp: 38.1 ??C (100.5 ??F) 38 ??C (100.4 ??F) TempSrc: Oral Oral SpO2: 99% 100% 100% Weight: 95.3 kg (210 lb) Height: 1.702 m (67 ) CONSTITUTIONAL: The patient appears she is, but otherwise non-toxic, well nourished and in no acutedistress. Vital signs reviewed as documented. HEAD: Atraumatic, normocephalic. EYES: EOMs grossly intact, pupils equal, conjunctiva clear, no exudate. ENT: Nares patent, no discharge. Airway patent, no audible stridor, visible mucosa is pink and moist without noted lesions. NECK: Trachea is midline, no obvious masses or gross abnormalities. CHEST: Symmetric movement, normal appearance. Deep respiration and palpation of the inferior sternum reproduces the patient's pain. LUNGS: LS present and CTAB, no w/r/r. Non-labored work of breathing. CARDIAC: Regular Rhythm, S1/S2 appreciated, no murmurs, rubs or gallops. ABDOMEN: Abdomen soft x4 quadrants, mild tenderness of the epigastrium without rebound or guarding.No masses or organomegaly. : Deferred. EXTREMITIES: Normal tone, moves all extremities spontaneously without reported pain. No obvious injury or deformity noted. 1+ nonpitting edema noted of the right lower extremity to the level of the mid calf, positive calf tenderness. NEURO: Alert and oriented x3, CN II-XII appear grossly intact. Cerebellar Functioning grossly intact. Speech clear and appropriate. PSYCH: normal affect, with appropriate eye contact and fluid, appropriate speech. No reported suicidality or homicidality. SKIN: Warm, dry, color appropriate, normal turgor. No rashes noted. Results Labs Reviewed COMPREHENSIVE METABOLIC PANEL - Abnormal Result Value Sodium 135 Potassium 4.1 Chloride 105 CO2 24 Anion Gap 6 Glucose 81 BUN 17 Creatinine 0.76 eGFR 92 BUN/Creatinine Ratio 22.4 Calcium 7.6 (*) AST (SGOT) 20 ALT (SGPT) 41 Alkaline Phosphatase 187 (*) Total Protein 5.5 (*) Albumin 2.5 (*) Total Bilirubin 0.1 MAGNESIUM - Abnormal Magnesium 1.8 (*) CBC WITH AUTO DIFFERENTIAL - Abnormal WBC 8.0 RBC 4.50 Hemoglobin 11.9 Hematocrit 39.6 MCV 88.0 MCH 26.4 (*) MCHC 30.1 (*) RDW 14.4 Platelets 120 (*) MPV 11.1 (*) NRBC 0.0 NRBC Absolute 0.00 Neutrophils Relative 77.7 Lymphocytes Relative 12.2 Monocytes Relative 7.7 Eosinophils Relative 1.7 Basophils Relative 0.2 Immature Granulocytes Relative 0.5 Neutrophils Absolute 6.21 Lymphocytes Absolute 0.98 (*) Monocytes Absolute 0.62 Eosinophils Absolute 0.14 Basophils Absolute 0.02 Immature Granulocytes Absolute 0.04 (*) [id number], RSV, FLU A AND B QUALITATIVE RT-PCR, INTERNAL LAB - Normal Influenza A PCR Not Detected Influenza B PCR Not Detected RSV PCR Not Detected SARS COV-2 Not Detected Narrative: Disclaimer: Testing was performed using the [employer] GeneXpert Xpress SARS-CoV-2 _Flu_RSV PLUS PCR assay. The manner in which this information is used to guide patient care is the responsibility of the healthcare provider. Results should be correlated with the clinical history, epidemiological data,and other data available to the clinician evaluating the patient. Negative results do not preclude infection. This test has been authorized by the FDA under an Emergency Use Authorization (EUA). Thistest is only authorized for the duration of time the declaration that circumstances exist justifying the authorization of the emergency use of in vitro diagnostic tests for detection of SARS-CoV-2 virus and/or diagnosis of COVID-19 infection under section 564 (b) (1) of the Act, 21 U.S.C 360bbb-3 (b) (1), unless the authorization is terminated or revoked sooner. Reference Range: Not Detected Fact sheet for Healthcare providers can be found at https://www.fda.gov/media/646995/download. Fact sheet for Healthcare patients can be found at https://www.fda.gov/media/362379/download. TROPONIN I HIGH SENSITIVITY - Normal High Sensitivity Troponin I 4 Narrative: High levels of biotin in samples may falsely decrease hsTroponin values. Use caution when interpreting hsTroponin results in patients taking biotin who exhibit renal impairment (eGFR <60) or in patients taking more than 20 mg/day of biotin. TROPONIN I HIGH SENSITIVITY - Normal High Sensitivity Troponin I 4 Narrative: High levels of biotin in samples may falsely decrease hsTroponin values. Use caution when interpreting hsTroponin results in patients taking biotin who exhibit renal impairment (eGFR <60) or in patients taking more than 20 mg/day of biotin. LIPASE - Normal Lipase 14 CBC AND DIFFERENTIAL Narrative: The following orders were created for panel order CBC and differential. Procedure Abnormality Status --------- ------ CBC auto differential[[id number]] Abnormal Final result Please view results for these tests on the individual orders. Abnormal Labs Reviewed COMPREHENSIVE METABOLIC PANEL - Abnormal; Notable for the following components: Result Value Calcium 7.6 (*) Alkaline Phosphatase 187 (*) Total Protein 5.5 (*) Albumin 2.5 (*) All other components within normal limits MAGNESIUM - Abnormal; Notable for the following components: Magnesium 1.8 (*) All other components within normal limits CBC WITH AUTO DIFFERENTIAL - Abnormal; Notable for the following components: MCH 26.4 (*) MCHC 30.1 (*) Platelets 120 (*) MPV 11.1 (*) Lymphocytes Absolute 0.98 (*) Immature Granulocytes Absolute 0.04 (*) All other components within normal limits CT Angio Chest wo and/or w Contrast Final Result 1. No central pulmonary embolus. More distal branches are not adequately assessed due to suboptimal opacification. 2. Esophageal wall thickening in the mid to distal esophagus. This document has been electronically signed by: Heber Lr MD on 07/22/2024 00:18:04 I have discussed any resulted incidental/abnormal imaging and/or lab abnormalities with the patientand have instructed them of the need for further evaluation and workup with their primary care doctor. The laboratory results, imaging results and other diagnostic exam results were reviewed in the EMR. EKG Interpretation EKG shows sinus rhythm with a rate of 94, no evidence of acute ischemia, no ST elevation, no ectopy. QTc 437 compared to previous on 05/21/2024 there are no acute morphology changes. Critical Care Time None Medical Decision Making The patient is a 59-year-old female presenting to the Emergency Department for evaluation of a cough and productive of white sputum which began this morning. At 3 PM the patient reports the cough became painful with associated epigastric and substernal chest discomfort worse with cough, deep respiration, and palpation. The patient is well-appearing in the ED but highly anxious. Lung sounds are clear to auscultation bilaterally, SpO2 of 98% on room air. The patient is borderline tachycardic, heart rate in the 90s, however patient also reports recent unilateral swelling of the right lower extremity which she attributes to recurrent 3 complications of the knee, underwent a steroid injection a few days ago but has continued pain, swelling, and on exam has right calf tenderness. As such we will obtain cardiac workup but additionally obtain CTA chest to rule out coagulopathic process. ED Course as of 07/23/24 0700 Sat Jul 22, 2024 0109 The patient CTA shows no pulmonary embolus, no obvious pneumonia, effusion, or pneumothorax. There is mild wall thickening in the mid to distal esophagus. The patient's laboratory evaluation is largely reassuring, troponin is negative x 2, COVID, flu, and RSV are negative, no leukocytosis or anemia. The patient's CMP shows no electrolyte deficiency or renal dysfunction, however there is mildl y elevated alkaline phosphatase, in the setting of the patient's epigastric pain we will add on a lipase to evaluate for acute pancreatitis, visualized portions of the upper abdomen on the CTA chest showed postsurgical changes of the stomach, no other acute upper abdominal findings. [RM] 0156 Lipase is normal at 14. The patient was given Tylenol for a low-grade fever of 100.5. Patient's presentation is likely viral, however given epigastric discomfort will treat with a GI cocktail and reassess. [RM] 0302 Patient was sleeping comfortably however when woken and asked about pain the patient reports she is having persistent chest pain, patient does not take NSAIDs due to history of gastric bypass, and has a listed anaphylaxis allergy to meloxicam. At this time patient has been ruled out for PE, AZ, pneumonia, pneumothorax, pleural effusion, pancreatitis, or other acute emergent process. Patient will be treated with a topical lidocaine patch for suspected musculoskeletal chest pain secondary tocough from viral URI and we will discharge with outpatient follow-up. [RM] ED Course User Index [RM] KINDRA Gutierrez Clinical Impressions as of 07/23/24 07 Pleurisy Viral upper respiratory tract infection Anterior chest wall pain Medications famotidine (PEPCID) tablet 20 mg (has no administration in time range) aluminum-magnesium hydroxide-simethicone (MAALOX) 200-200-20 mg/5 mL suspension 30 mL (has no administration in time range) lidocaine (XYLOCAINE) 2 % mouth solution 10 mL (has no administration in time range) sodium chloride 0.9 % flush 10 mL (10 mL intravenous Given 07/21/24 2317) iopamidoL (ISOVUE-370) 370 mg iodine /mL (76 %) injection 90 mL (90 mL intravenous Given 07/21/24 2318) acetaminophen (TYLENOL) tablet 1,000 mg (1,000 mg oral Given 07/21/24 0471) Procedures Procedures Diagnosis 1. Pleurisy CT Angio Chest wo and/or w Contrast CT Angio Chest wo and/or w Contrast Disposition Data Unavailable ED Prescriptions None Physician Attestation KINDRA Gutierrez 07/21/242213 KINDRA Gutierrez 07/21/242228 KINDRA Gutierrez 07/22/24 0201 KINDRA Gutierrez 07/23/24 07 Cosigned by Tara Francis DO at 07/23/2024 4:41 PM EST documented in this encounter Plan of Treatment Not on file documented as of this encounter Procedures Procedure Name Priority Date/Time Associated Diagnosis Comments TROPONIN I HIGH SENSITIVITY STAT 07/21/2024 11:35 PM EST MAGNESIUM STAT 07/21/2024 11:35 PM EST LIPASE STAT Add-on 07/21/2024 11:35 PM EST COMPREHENSIVE METABOLIC PANEL STAT 07/21/2024 11:[address] ANGIO CHEST WO AND/OR W CONTRAST STAT 07/21/2024 11:26 PM EST Pleurisy [id number], RSV, FLU A AND B QUALITATIVE RT-PCR, INTERNAL LAB STAT 07/21/2024 10:35 PM EST TROPONIN I HIGH SENSITIVITY STAT 07/21/2024 10:34 PM EST CBC WITH AUTO DIFFERENTIAL STAT 07/21/2024 10:34 PM EST CBC AND DIFFERENTIAL STAT 07/21/2024 10:34 PM EST ECG 12-LEAD STAT 07/21/2024 10:22 PM EST ECG OUTSIDE 07/21/2024 ECG ANNOTATED 07/21/2024 documented in this encounter Results * Lipase (07/21/2024 11:35 PM EST) Lipase 14 13 - 75 unit/L LAB CHEMISTRY METHOD 07/22/2024 1:17 AM EST [facility] ([facility]) [facility] Blood Venous blood specimen / Unknown Venipuncture / Unknown 07/21/2024 11:35 PM EST 07/22/2024 12:00 AM EST Celso ARGUELLES LAB BLOOD ORDERABLES Final Resul t Performing Organization Address [facility] de Phone Number [facility] [address] [place] [address], [place] [phone] * (ABNORMAL) Magnesium (07/21/2024 11:35 PM EST) [facility] Magnesium 1.8(L) 1.9 - 2.6 mg/dL LAB CHEMISTRY METHOD 07/22/2024 12:36 AM EST [facility] Blood Venous blood specimen / Unknown Venipuncture / Unknown 07/21/2024 11:35 PM EST 07/22/2024 12:00 AM EST Tara Francis DO LAB BLOOD ORDERABLES Lilia l Result Performing Organization Address [facility] de Phone Number [facility] [address] [place] [address], [place] [phone] * Troponin I high sensitivity (NOW and then in 1 hour) (07/21/2024 11:35 PM EST) [facility] High Sensitivity Troponin I 4 <=54 ng/L LAB CHEMISTRY METHOD 07/22/2024 12:34 AM EST [facility] Blood Venous blood specimen / Unknown Venipuncture / Unknown 07/21/2024 11:35 PM EST 07/22/2024 12:00 AM EST Narrative [facility] - 07/22/2024 12:34 AM EST High levels of biotin in samples may falsely decrease hsTroponin values. ??Use caution when interpreting hsTroponin results in patients taking biotin who exhibit renal impairment (eGFR <60) or in patients taking more than 20 mg/day of biotin. Tara Francis DO LAB BLOOD ORDERABLES Lilia l Result Performing Organization Address [facility] Co de Phone Number [facility] [address] [place] [address], * (ABNORMAL) Comprehensive metabolic panel (07/21/2024 11:35 PM EST) Sodium 135 133 - 145 mmol/L LAB CHEMISTRY METHOD 07/22/2024 12:38 AM [facility] Potassium 4.1 3.5 - 5.5 mmol/L LAB CHEMISTRY METHOD 07/22/2024 12:38 AM [facility] Chloride 105 96 - 110 mmol/L LAB CHEMISTRY METHOD 07/22/2024 12:38 AM [facility] CO2 24 21 - 32 mmol/L LAB CHEMISTRY METHOD 07/22/2024 12:38 AM [facility] Anion Gap 6 3 - 11 LAB CHEMISTRY METHOD 07/22/2024 12:38 AM [facility] Glucose 81 70 - 100 mg/dL LAB CHEMISTRY METHOD 07/22/2024 12:38 AM [facility] BUN 17 5 - 25 mg/dL LAB CHEMISTRY METHOD 07/22/2024 12:38 AM [facility] Creatinine 0.76 0.50 - 1.10 mg/dL LAB CHEMISTRY METHOD 07/22/2024 12:38 AM [facility] eGFR 92 >=60 mL/min/1. 73m2 LAB CHEMISTRY METHOD 07/22/2024 12:38 AM [facility] Comment:Calculation based on the??Chronic Kidney Disease Epidemiology Collaboration (CKD-EPI) equation refit??without adjustment for race. BUN/Creatinine Ratio 22.4 LAB CHEMISTRY METHOD 07/22/2024 12:38 AM [facility] Calcium 7.6(L) 8.5 - 10.5 mg/dL LAB CHEMISTRY METHOD 07/22/2024 12:38 AM [facility] AST (SGOT) 20 10 - 42 unit/L LAB CHEMISTRY METHOD 07/22/2024 12:38 AM EST [facility] ALT (SGPT) 41 10 - 60 unit/L LAB CHEMISTRY METHOD 07/22/2024 12:38 AM [facility] Alkaline Phosphatase 187(H) 42 - 121 unit/L LAB CHEMISTRY METHOD 07/22/2024 12:38 AM [facility] Total Protein 5.5(L) 6.0 - 8.0 g/dL LAB CHEMISTRY METHOD 07/22/2024 12:38 AM [facility] Albumin 2.5(L) 3.2 - 5.0 g/dL LAB CHEMISTRY METHOD 07/22/2024 12:38 AM [facility] Total Bilirubin 0.1 0.0 - 1.4 mg/dL LAB CHEMISTRY METHOD 07/22/2024 12:38 AM [facility] Blood Venous blood specimen / Unknown Venipuncture / Unknown 07/21/2024 11:35 PM EST 07/22/2024 12:00 AM EST us Abdifatah Ortiz Elver Tito DO LAB BLOOD ORDERABLES Lilia l Result [facility] [address] [place] [address], [place] [phone] * CT Angio Chest wo and/or w Contrast (07/21/2024 11:26 PM EST) Anatomical Region Laterality Modality Body Computed Tomogra phy 07/22/2024 12:1 8 AM EST Impressions 07/22/2024 12:18 AM EST 1. No central pulmonary embolus. More distal branches are not adequately assessed due to suboptimal opacification. 2. Esophageal wall thickening in the mid to distal esophagus. This document has been electronically signed by: Heber Lr MD on 07/22/2024 00:18:04 Narrative 07/22/2024 12:18 AM EST INDICATION: PE suspected, high prob CT angiography chest with contrast. 3D Postprocessing. Comparison: None Findings: The heart is normal size. RV/LV ratio is normal. The thoracic aorta is normal caliber. No central pulmonary embolus. More distal branches are not adequately assessed due to suboptimal opacification. Wall thickening of the mid to distal esophagus. Visualized thyroid gland is within normal limits. Few prominent lymph nodes measuring up to 10 mm in the right paratracheal region. Mild subpleural scarring in the left upper lobe. No consolidation, pleural effusion or pneumothorax. Postsurgical changes in the stomach. No acute findings in the visualized upper abdomen. Spinal stimulator in place with electrodes at the level of T8-T9. Procedure Note Heber Lr MD - 07/22/2024 INDICATION: PE suspected, high prob CT angiography chest with contrast. 3D Postprocessing. Comparison: None Findings: The heart is normal size. RV/LV ratio is normal. The thoracic aorta is normal caliber. No central pulmonary embolus. More distal branches are not adequately assessed due to suboptimal opacification. Wall thickening of the mid to distal esophagus. Visualized thyroid gland is within normal limits. Few prominent lymph nodes measuring up to 10 mm in the rightparatracheal region. Mild subpleural scarring in the left upper lobe. No consolidation, pleural effusion or pneumothorax. Postsurgical changes in the stomach. No acute findings in the visualized upper abdomen. Spinal stimulator in place with electrodes at the level of T8-T9. IMPRESSION: 1. No central pulmonary embolus. More distal branches are not adequately assessed due to suboptimal opacification. 2. Esophageal wall thickening in the mid to distal esophagus. This document has been electronically signed by: Heber Lr MD on 07/22/2024 00:18:04 Celso ARGUELLES [facility] CT PROCEDURES Final Result * [id number], RSV, Influenza A and B qualitative RT-PCR (07/21/2024 10:35 PM EST) Influenza A PCR Not Detected Not Detected LAB MICROBIOLOGY METHOD 07/21/2024 11:33 PM EST [facility] Influenza B PCR Not Detected Not Detected LAB MICROBIOLOGY METHOD 07/21/2024 11:33 PM EST [facility] LAB RSV PCR Not Detected Not Detected LAB MICROBIOLOGY METHOD 07/21/2024 11:33 PM EST [facility] SARS COV-2 Not Detected Not Detected LAB MICROBIOLOGY METHOD 07/21/2024 11:33 PM EST [facility] Swab Both anterior nares / Unknown Non-blood Collection / Unknown 07/21/2024 10:35 PM EST 07/21/2024 10:50 PM EST Narrative [facility] - 07/21/2024 11:33 PM EST Disclaimer: ??Testing was performed using the [employer] GeneXpert Xpress SARS-CoV-2 _Flu_RSV PLUS PCR assay. ??The manner in which this information is used to guide patient care is the responsibility of the healthcare provider. ??Results should be correlated with the clinical history, epidemiological data, and other data available to the clinician evaluating the patient. ??Negative results do not preclude infection. ??This test has been authorized by the FDA under an Emergency Use Authorization (EUA). ??This test is only authorized for the duration of time the declaration that circumstances exist justifying the authorization of the emergency use of in vitro diagnostic tests for detection of SARS-CoV-2 virus and/or diagnosis of COVID-19 infection under section 564 (b) (1) of the Act, 21 U.S.C 360bbb-3 (b) (1), unless the authorization is terminated or revoked sooner. ?? Reference Range: Not Detected Fact sheet for Healthcare providers can be found at https://www.fda.gov/media/225073/download. ?? Fact sheet for Healthcare patients can be found at https://www.fda.gov/media/793515/download. [facility] MICROBIOLOGY - GENERAL ORDER ANA Final Result [facility] [address] [place] [address], * (ABNORMAL) CBC auto differential (07/21/2024 10:34 PM EST) Pathologist [facility] WBC 8.0 4.8 - 10.8 K/mcL LAB HEMETOLOGY METHOD 07/21/2024 10:59 PM [facility] RBC 4.50 3.80 - 4.80 M/mcL LAB HEMETOLOGY METHOD 07/21/2024 10:59 PM [facility] Hemoglobin 11.9 11.5 - 16.0 g/dL LAB HEMETOLOGY METHOD 07/21/2024 10:59 PM [facility] Hematocrit 39.6 35.0 - 47.0 % LAB HEMETOLOGY METHOD 07/21/2024 10:59 PM [facility] MCV 88.0 79.0 - 98.0 FL LAB HEMETOLOGY METHOD 07/21/2024 10:59 PM [facility] MCH 26.4(L) 27.0 - 32.0 pcg LAB HEMETOLOGY METHOD 07/21/2024 10:59 PM [facility] MCHC 30.1(L) 32.0 - 37.0 g/dL LAB HEMETOLOGY METHOD 07/21/2024 10:59 PM [facility] RDW 14.4 11.0 - 15.0 % LAB HEMETOLOGY METHOD 07/21/2024 10:59 PM [facility] Platelets 120(L) 130 - 400 K/mcL LAB HEMETOLOGY METHOD 07/21/2024 10:59 PM [facility] MPV 11.1(H) 7.0 - 11.0 FL LAB HEMETOLOGY METHOD 07/21/2024 10:59 PM [facility] NRBC 0.0 <1.0 % LAB HEMETOLOGY METHOD 07/21/2024 10:59 PM [facility] NRBC Absolute 0.00 <0.10 K/mcL LAB HEMETOLOGY METHOD 07/21/2024 10:59 PM [facility] Neutrophils Relative 77.7 % LAB HEMETOLOGY METHOD 07/21/2024 10:59 PM [facility] Lymphocytes Relative 12.2 % LAB HEMETOLOGY METHOD 07/21/2024 10:59 PM [facility] Monocytes Relative 7.7 % LAB HEMETOLOGY METHOD 07/21/2024 10:59 PM [facility] Eosinophils Relative 1.7 % LAB HEMETOLOGY METHOD 07/21/2024 10:59 PM [facility] Basophils Relative 0.2 % LAB HEMETOLOGY METHOD 07/21/2024 10:59 PM [facility] Immature Granulocytes Relative 0.5 % LAB HEMETOLOGY METHOD 07/21/2024 10:59 PM [facility] Neutrophils Absolute 6.21 1.50 - 7.00 K/mcL LAB HEMETOLOGY METHOD 07/21/2024 10:59 PM [facility] Lymphocytes Absolute 0.98(L) 1.00 - 5.00 K/mcL LAB HEMETOLOGY METHOD 07/21/2024 10:59 PM [facility] Monocytes Absolute 0.62 0.20 - 1.00 K/mcL LAB HEMETOLOGY METHOD 07/21/2024 10:59 PM [facility] Eosinophils Absolute 0.14 0.00 - 0.50 K/mcL LAB HEMETOLOGY METHOD 07/21/2024 10:59 PM [facility] Basophils Absolute 0.02 0.00 - 0.20 K/mcL LAB HEMETOLOGY METHOD 07/21/2024 10:59 PM [facility] Immature Granulocytes Absolute 0.04(H) 0.00 - 0.03 K/mcL LAB HEMETOLOGY METHOD 07/21/2024 10:59 PM [facility] Blood Venous blood specimen / Unknown Venipuncture / Unknown 07/21/2024 10:34 PM EST 07/21/2024 10:49 PM EST Tara Francis DO LAB BLOOD ORDERABLES Lilia l Result Performing Organization Address [facility]/ZIP Co de Phone Number [facility] [address] [place] [address], [place] [phone] * Troponin I high sensitivity (NOW and then in 1 hour) (07/21/2024 10:34 PM EST) [facility] High Sensitivity Troponin I 4 <=54 ng/L LAB CHEMISTRY METHOD 07/21/2024 11:24 PM EST [facility] Blood Venous blood specimen / Unknown Venipuncture / Unknown 07/21/2024 10:34 PM EST 07/21/2024 10:49 PM EST Narrative [facility] - 07/21/2024 11:24 PM EST High levels of biotin in samples may falsely decrease hsTroponin values. ??Use caution when interpreting hsTroponin results in patients taking biotin who exhibit renal impairment (eGFR <60) or in patients taking more than 20 mg/day of biotin. Tara Francis DO LAB BLOOD ORDERABLES Lilia l Result Performing Organization Address [facility] de Phone Number [facility] [address] [place] [address], [place] [phone] * ECG 12 lead (07/21/2024 10:22 PM EST) [facility] Ventricular Rate ECG 94 BPM GEMUSE Atrial Rate 94 BPM GEMUSE P-R Interval 110 ms GEMUSE QRS Duration 76 ms GEMUSE Q-T Interval 350 ms GEMUSE QTc 437 ms GEMUSE P Wave [place] 53 degrees GEMUSE R [place] -6 degrees GEMUSE T [place] 22 degrees GEMUSE ECG Interpretation Sinus rhythm Normal ECG When compared with ECG of 21-MAY-2024 18:20, No significant change was found Confirmed by Winifred WILLS YUFENG ([id number]) on 07/22/2024 10:29:45 AM GEMUSE 07/21/2024 10:2 2 PM EST 07/22/2024 10:29 AM EST Tara Francis DO ECG ORDERABLES Final Res ult GEMUSE * ECG-Annotated (07/21/2024) Provider Onbase MD ECG ORDERABLES Final Result * ECG-Outside (07/21/2024) Provider Onbase MD ECG ORDERABLES Final Result documented in this encounter Visit Diagnoses Diagnosis Pleurisy- Primary Pleurisy without mention of effusion or current tuberculosis Viral upper respiratory tract infection Acute upper respiratory infections of unspecified site Anterior chest wall pain Painful respiration documented in this encounter Administered Medications Inactive Administered Medications - up to 3 most recent administrations Medication Order MAR Action Action Date Dose Rate Site acetaminophen (TYLENOL) tablet 1,000 mg 1,000 mg, oral, Once, On Wed07/21/24 at 2340, For 1 dose Given 07/21/2024 11:51 PM EST 1,000 mg aluminum-magnesium hydroxide-simethicone (MAALOX) 200-200-20 mg/5 mL suspension 30 mL 30 mL, oral, Once, On 07/22/24 at 0154, For 1 dose Given 07/22/2024 2:06 AM EST 30 mL famotidine (PEPCID) tablet 20 mg 20 mg, oral, Once, On 07/22/24 at 0154, For 1 dose Given 07/22/2024 2:06 AM EST 20 mg iopamidoL (ISOVUE-370) 370 mg iodine /mL (76 %) injection 90 mL 90 mL, intravenous, Once in imaging, Starting on Wed07/21/24 at 2316, For 1 dose Given 07/21/2024 11:18 PM EST 90 mL lidocaine (XYLOCAINE) 2 % mouth solution 10 mL 10 mL, oral, Once, On 07/22/24 at 0154, For 1 dose Given 07/22/2024 2:06 AM EST 10 mL lidocaine 4 % patch 1 patch 1 patch, Topical, Administer over 12 Hours, Once, On 07/22/24 at 0307, For 1 dose, Apply to Lower Sternum. Patch Applied 07/22/2024 3:33 AM EST 1 patch Chest sodium chloride 0.9 % flush 10 mL 10 mL, intravenous, Once, On 07/21/24 at 2317, For 1 dose Given 07/21/2024 11:17 PM EST 10 mL documented in this encounter Active and Recently Administered Medications Times are shown in EST. Scheduled Medication Order 07/20/2024 07/21/2024 07/22/2024 acetaminophen (TYLENOL) tablet 1,000 mg (COMPLETED) 1,000 mg, oral, Once, On Wed07/21/24 at 2340, For 1 dose 2351 (Given - Provider: Maura Pinon RN) aluminum-magnesium hydroxide-simethicone (MAALOX) 200-200-20 mg/5 mL suspension 30 mL (COMPLETED) 30 mL, oral, Once, On 07/22/24 at 0154, For 1 dose 0206 (Given - Provid er: Maura Pinon RN) famotidine (PEPCID) tablet 20 mg (COMPLETED) 20 mg, oral, Once, On 07/22/24 at 0154, For 1 dose 0206 (Given - Provid er: Maura Pinon RN) iopamidoL (ISOVUE-370) 370 mg iodine /mL (76 %) injection 90 mL (COMPLETED) 90 mL, intravenous, Once in imaging, Starting on Wed07/21/24 at 2316, For 1 dose 2318 (Given - Provider: Ad Barnhart) lidocaine (XYLOCAINE) 2 % mouth solution 10 mL (COMPLETED) 10 mL, oral, Once, On 07/22/24 at 0154, For 1 dose 0206 (Given - Provid er: Maura Pinon RN) lidocaine 4 % patch 1 patch 1 patch, Topical, Administer over 12 Hours, Once, On 07/22/24 at 0307, For 1 dose, Apply to Lower Sternum. 0333 (Patch Applied - Provider: Maura Pinon RN)0356 (Due: Patch Removed - Provider: Automatic Discharge Provider - Comment: Time automatically adjusted from order being discontinued) sodium chloride 0.9 % flush 10 mL (COMPLETED) 10 mL, intravenous, Once, On Wed07/21/24 at 2317, For 1 dose 2317 (Given - Provider: Ad Barnhart) documented in this encounter Additional Health Concerns Infection Onset Date Last Indicated Resolved Time Respiratory Rule-Out 07/21/2024 07/21/2024 025 11:33 PM EST COVID-19 Rule-Out 07/21/2024 07/21/2024 07/21/2024 11:33 PM EST documented as of this encounter Care Teams Transportation Program Director Relationship Specialty Start Date End Date Carri Reynoso MD [id number] [place], [place] PCP - General 11/07/09 documented as of this encounter
--- OUTSIDE RECORDS SUMMARY | 2024-08-04 11:38 | XMS_ITS | Clinical Summary ---
Author Organization [facility] Address [address] [place] [address] Phone Care Team Providers Care Sales Trainee Name Role Phone Carri Nunez MD Primary Care Provider [phone] Allergies Active Allergy Reactions Criticality Noted Date Comments Amoxicillin Hives,Rash 01/19/2022 Clonidine Hcl 04/30/2011 Gabapentin Swelling 01/19/2022 Meloxicam Anaphylaxis High 01/19/2022 Medications furosemide (LASIX) 20 mg tablet Take 3 tablets (60 mg total) by mouth 1 (one) time each day for 7 days. 21 each 05/22/2024 Active Encounters Date Type Department Care Team Description 07/21/2024 9:37 PM EST - 07/22/2024 3:56 AM [facility] Emergency [address] [place] [phone] Pleurisy (Primary Dx); Viral upper respiratory tract infection; Anterior chest wall pain Discharge Disposition: Home or Self Care 05/28/2024 11:34 AM EST - 05/28/2024 2:01 PM [facility] Emergency [address] [place] [phone] Encounter for assessment of Mora catheter (Primary Dx) Discharge Disposition: Home or Self Care 05/22/2024 8:48 AM EST - 05/22/2024 2:42 PM [facility] Emergency [address] [place] [phone] Adolph Martinez MD Swelling of both lower extremities (Primary Dx); Urinary retention Discharge Disposition: Home or Self Care from Last 3 Months Surgical History Surgery Date Site/Laterality Comments BACK SURGERY 1999 PROCEDURE: HISTORICAL BACK SURGERY; COMMENT: L5 fusion Dr Issa at [facility] GASTRIC BYPASS PROCEDURE: GASTRIC BYPASS FOR OBESIT; COMMENT: performed one yr ago COLONOSCOPY PROCEDURE: HISTORICAL COLONOSCOPY COLONOSCOPY PROCEDURE: HISTORICAL COLONOSCOPY; COMMENT: Performed on November 28, 2020 HERNIA REPAIR PROCEDURE: DC REPAIR FIRST ABDOMINAL WALL HERNIA Medical History [...] Orientation Straight 07/21/2024 10 :08 PM EST Obstetrics History Last Filed Vital Signs Vital [...] Mass Index 32.89 07/21/2024 10:59 PM EST Plan of Treatment Health Maintenance Due Date Last Done Comments Hepatitis B Vaccines (1 of 3 - 19+ 3-dose series) 1986 Cervical Cancer Screening: Pap Smear 1988 Pneumococcal Vaccine: 50+ Years (2 of 2 - PCV) 04/05/2020 04/05/2019 Pneumococcal Vaccine: Pediatrics (0 to 5 Years) and At-Risk Patients (6 to 64 Years) (2 of 2 - PCV) 04/05/2020 04/05/2019 Cholesterol Screening (Lipid Panel) 05/23/2022 Colorectal Cancer Screening: Colonoscopy 05/23/2022 Depression Screening 05/23/2022 HIV Screening 05/23/2022 Hepatitis C Screening 05/23/2022 Social Influencers of Health Screening 05/23/2022 COVID-19 Vaccine ( season) 2024 07/10/2023, 12/23/2021, 03/31/2021, Additional history exists Influenza Vaccine (#1) 2024 , 05/23/2022, 03/31/2021, Additional history exists Breast Cancer Screening 04/29/2024 04/29/20 22, 04/22/2021, 03/12/2020, Additional history exists Hypertension/CHF/CAD Annual BMP Blood Test 07/21/2025 07/21/2024, 05/21/2024, 01/12/2023, Additional history exists DTaP,Tdap,and Td Vaccines (5 [...] patient's age to complete this topic Meningococcal B Vacine Aged Out No lo nger eligible based on patient's age to complete this topic RSV Immunization Patients Under 20 months Aged Out No longer eligible based on patient's age to complete this topic Varicella Vaccines Aged Out No longer eligible based on patient's age to complete this topic Procedures Procedure Name Priority Date/Time Associated Diagnosis Comments LIPASE STAT Add-on 07/21/2024 11:35 PM EST MAGNESIUM STAT 07/21/2024 11:35 PM EST TROPONIN I HIGH SENSITIVITY STAT 07/21/2024 11:35 PM EST COMPREHENSIVE METABOLIC PANEL STAT 07/21/2024 11:[address] ANGIO CHEST WO AND/OR W CONTRAST STAT 07/21/2024 11:26 PM EST Pleurisy WIFP-DAD3-QCD, RSV, FLU A AND B QUALITATIVE RT-PCR, INTERNAL LAB STAT 07/21/2024 10:35 PM EST CBC WITH AUTO DIFFERENTIAL STAT 07/21/2024 10:34 PM EST TROPONIN I HIGH SENSITIVITY STAT 07/21/2024 10:34 PM EST CBC AND DIFFERENTIAL STAT 07/21/2024 10:34 PM EST ECG 12-LEAD STAT 07/21/2024 10:22 PM EST ECG ANNOTATED 07/21/2024 ECG OUTSIDE 07/21/2024 KENNY URINE CULTURE TUBE STAT 05/28/2024 12:46 [...] Recently Relevant to Health Maintenance Results * Troponin I high sensitivity (NOW and then in 1 hour) (07/21/2024 11:35 PM EST) Only the most recent of4 resultswithin the time period is included. High Sensitivity Troponin I 4 <=54 ng/L LAB CHEMISTRY METHOD 07/22/2024 12:[address] [facility] Blood Venous blood specimen / Unknown Venipuncture / Unknown 07/21/2024 11:35 PM EST 07/22/2024 12:[address] [facility] - 07/22/2024 12:34 AM EST High levels of biotin in samples may falsely decrease hsTroponin values. ??Use caution when interpreting hsTroponin results in patients taking biotin who exhibit renal impairment (eGFR <60) or in patients taking more than 20 mg/day of biotin. us Gardinervarun Ortiz Elver Francis DO LAB BLOOD ORDERABLES Lilia l Result Performing Organization Address [facility] Co de Phone Number [facility] [address] [place] [address], [place] [phone] * (ABNORMAL) Magnesium (07/21/2024 11:35 PM EST) Only the most recent of2 resultswithin the time period is included. Magnesium 1.8(L) 1.9 - 2.6 mg/dL LAB CHEMISTRY METHOD 07/22/2024 12:[address] [facility] Blood Venous blood specimen / Unknown Venipuncture / Unknown 07/21/2024 11:35 PM EST 07/22/2024 12:00 AM EST Tara Raya Francis DO LAB BLOOD ORDERABLES Lilia l Result Performing Organization Address [facility]/ZIP Co de Phone Number [facility] [address] [place] [address], [place] [phone] * Lipase (07/21/2024 11:35 PM EST) Only the most recent of2 resultswithin the time period is included. Lipase 14 13 - 75 unit/L LAB CHEMISTRY METHOD 07/22/2024 1:[address] [facility] Blood Venous blood specimen / Unknown Venipuncture / Unknown 07/21/2024 11:35 PM EST 07/22/2024 12:00 AM EST us Celso ARGUELLES LAB BLOOD ORDERABLES Final Resul t [facility] [address] [place] [address], * (ABNORMAL) Comprehensive metabolic panel (07/21/2024 11:35 PM EST) Only the most recent of2 resultswithin the time period is included. Sodium 135 133 - 145 mmol/L LAB CHEMISTRY METHOD 07/22/2024 12:38 AM [facility] Potassium 4.1 3.5 - 5.5 mmol/L LAB CHEMISTRY METHOD 07/22/2024 12:38 AM [facility] Chloride 105 96 - 110 mmol/L LAB CHEMISTRY METHOD 07/22/2024 12:38 AM [facility] CO2 24 21 - 32 mmol/L LAB CHEMISTRY METHOD 07/22/2024 12:38 AM [facility] Anion Gap 6 3 - 11 LAB CHEMISTRY METHOD 07/22/2024 12:38 AM [facility] Glucose 81 70 - 100 mg/dL LAB CHEMISTRY METHOD 07/22/2024 12:38 AM [facility] BUN 17 5 - 25 mg/dL LAB CHEMISTRY METHOD 07/22/2024 12:38 AM [facility] Creatinine 0.76 0.50 - 1.10 mg/dL LAB CHEMISTRY METHOD 07/22/2024 12:38 AM [facility] eGFR 92 >=60 mL/min/1. 73m2 LAB CHEMISTRY METHOD 07/22/2024 12:38 AM [facility] Comment:Calculation based on the??Chronic Kidney Disease Epidemiology Collaboration (CKD-EPI) equation refit??without adjustment for race. BUN/Creatinine Ratio 22.4 LAB CHEMISTRY METHOD 07/22/2024 12:38 AM [facility] Calcium 7.6(L) 8.5 - 10.5 mg/dL LAB CHEMISTRY METHOD 07/22/2024 12:38 AM [facility] AST (SGOT) 20 10 - 42 unit/L LAB CHEMISTRY METHOD 07/22/2024 12:38 AM [facility] ALT (SGPT) 41 10 - 60 unit/L LAB CHEMISTRY METHOD 07/22/2024 12:38 AM [facility] Alkaline Phosphatase 187(H) 42 - 121 unit/L LAB CHEMISTRY METHOD 07/22/2024 12:38 AM [facility] Total Protein 5.5(L) 6.0 - 8.0 g/dL LAB CHEMISTRY METHOD 07/22/2024 12:38 AM [facility] Albumin 2.5(L) 3.2 - 5.0 g/dL LAB CHEMISTRY METHOD 07/22/2024 12:38 AM [facility] Total Bilirubin 0.1 0.0 - 1.4 mg/dL LAB CHEMISTRY METHOD 07/22/2024 12:38 AM [facility] Blood Venous blood specimen / Unknown Venipuncture / Unknown 07/21/2024 11:35 PM EST 07/22/2024 12:00 AM EST us Tara Francis DO LAB BLOOD ORDERABLES Lilia l Result [facility] [address] [place] [address], [place] [phone] * CT Angio Chest wo and/or w [...] Lr MD on 07/22/2024 00:18:[address] PROCEDURES Final Result * TGVP-FLU1-MAG, RSV, Influenza A and B qualitative RT-PCR (07/21/2024 10:35 PM EST) Influenza A PCR Not Detected Not Detected LAB MICROBIOLOGY METHOD 07/21/2024 11:[address] [facility] Influenza B PCR Not Detected Not Detected LAB MICROBIOLOGY METHOD 07/21/2024 11:[address] [facility] RSV PCR Not Detected Not Detected LAB MICROBIOLOGY METHOD 07/21/2024 11:[address] [facility] SARS COV-2 Not Detected Not Detected LAB MICROBIOLOGY METHOD 07/21/2024 11:33 PM [facility] Swab Both anterior nares / Unknown Non-blood Collection / Unknown 07/21/2024 10:35 PM EST 07/21/2024 10:50 PM EST [facility] - 07/21/2024 11:33 PM EST Disclaimer: ??Testing was performed using the [employer] GeneXpert Xpress SARS-CoV-2 _Flu_RSV PLUS PCR assay. [...] for Healthcare providers can be found at https://www.fda.gov/media/098210/download. ?? Fact sheet for Healthcare patients can be found at https://www.fda.gov/media/075017/download. Celso ARGUELLES LAB MICROBIOLOGY - GENERAL ORDER ANA Final Result [facility] [address] [place] [address], * (ABNORMAL) CBC auto differential (07/21/2024 10:34 PM EST) Only the most recent of2 resultswithin the time period is included. WBC 8.0 4.8 - 10.8 K/mcL LAB HEMETOLOGY METHOD 07/21/2024 10:59 PM [facility] RBC 4.50 3.80 - 4.80 M/mcL LAB HEMETOLOGY METHOD 07/21/2024 10:59 PM [facility] Hemoglobin 11.9 11.5 - 16.0 g/dL LAB HEMETOLOGY METHOD 07/21/2024 10:59 PM [facility] Hematocrit 39.6 35.0 - 47.0 % LAB HEMETOLOGY METHOD 07/21/2024 10:[address] [facility] MCV 88.0 79.0 - 98.0 FL LAB HEMETOLOGY METHOD 07/21/2024 10:59 PM [facility] MCH 26.4(L) 27.0 - 32.0 pcg LAB HEMETOLOGY METHOD 07/21/2024 10:59 PM [facility] MCHC 30.1(L) 32.0 - 37.0 g/dL LAB HEMETOLOGY METHOD 07/21/2024 10:[address] [facility] RDW 14.4 11.0 - 15.0 % LAB HEMETOLOGY METHOD 07/21/2024 10:59 PM [facility] Platelets 120(L) 130 - 400 K/mcL LAB HEMETOLOGY METHOD 07/21/2024 10:59 PM [facility] MPV 11.1(H) 7.0 - 11.0 FL LAB HEMETOLOGY METHOD 07/21/2024 10:59 PM [facility] NRBC 0.0 <1.0 % LAB HEMETOLOGY METHOD 07/21/2024 10:59 PM [facility] NRBC Absolute 0.00 <0.10 K/mcL LAB HEMETOLOGY METHOD 07/21/2024 10:59 PM [facility] Neutrophils Relative 77.7 % LAB HEMETOLOGY METHOD 07/21/2024 10:59 PM [facility] Lymphocytes Relative 12.2 % LAB HEMETOLOGY METHOD 07/21/2024 10:59 PM [facility] Monocytes Relative 7.7 % LAB HEMETOLOGY METHOD 07/21/2024 10:59 PM [facility] Eosinophils Relative 1.7 % LAB HEMETOLOGY METHOD 07/21/2024 10:59 PM [facility] Basophils Relative 0.2 % LAB HEMETOLOGY METHOD 07/21/2024 10:59 PM [facility] Immature Granulocytes Relative 0.5 % LAB HEMETOLOGY METHOD 07/21/2024 10:59 PM [facility] Neutrophils Absolute 6.21 1.50 - 7.00 K/mcL LAB HEMETOLOGY METHOD 07/21/2024 10:59 PM [facility] Lymphocytes Absolute 0.98(L) 1.00 - 5.00 K/mcL LAB HEMETOLOGY METHOD 07/21/2024 10:59 PM [facility] Monocytes Absolute 0.62 0.20 - 1.00 K/mcL LAB HEMETOLOGY METHOD 07/21/2024 10:59 PM [facility] Eosinophils Absolute 0.14 0.00 - 0.50 K/mcL LAB HEMETOLOGY METHOD 07/21/2024 10:59 PM [facility] Basophils Absolute 0.02 0.00 - 0.20 K/mcL LAB HEMETOLOGY METHOD 07/21/2024 10:59 PM EST [facility] Immature Granulocytes Absolute 0.04(H) 0.00 - 0.03 K/mcL LAB HEMETOLOGY METHOD 07/21/2024 10:[address] [facility] Blood Venous blood specimen / Unknown Venipuncture / Unknown 07/21/2024 10:34 PM EST 07/21/2024 10:49 PM EST Tara Ortiz Elver Francis DO LAB BLOOD ORDERABLES Lilia l Result [facility]) [facility] [address] [place] [address], [place] [phone] * ECG 12 lead (07/21/2024 10:22 PM EST) Only the most recent of3 resultswithin the time period is included. Ventricular Rate ECG 94 BPM GEMUSE Atrial Rate 94 BPM GEMUSE P-R Interval 110 ms GEMUSE QRS Duration 76 ms GEMUSE Q-T Interval 350 ms GEMUSE QTc 437 ms GEMUSE P Wave [place] 53 degrees GEMUSE R [place] -6 degrees GEMUSE T [place] 22 degrees GEMUSE ECG Interpretation Sinus rhythm Normal ECG When compared with ECG of 21-MAY-2024 18:20, No significant change was found Confirmed by Winifred WILLS YUFENG ([id number]) on 07/22/2024 10:29:45 AM GEMUSE 07/21/2024 10:2 2 PM EST 07/22/2024 10:29 AM EST us Tara Ortiz Elver Francis DO ECG ORDERABLES Final Res ult GEMUSE * ECG-Outside (07/21/2024) us Provider Onbase MD ECG ORDERABLES Final Result * ECG-Annotated (07/21/2024) us Provider Onbase MD ECG ORDERABLES Final Result * (ABNORMAL) Urinalysis with reflex microscopic and culture (05/28/2024 12:46 PM EST) Only the most recent of2 resultswithin the time period is included. Specific [place] Urine 1.027 1.003 - 1.030 LAB URINALYSIS - AUTOMATED METHOD 05/28/2024 1:25 PM [facility] pH, Urine 7.0 5.0 - 8.0 pH LAB URINALYSIS - AUTOMATED METHOD 05/28/2024 1:25 PM [facility] Leukocytes, Urine Moderate(A) Negative LAB URINALYSIS - AUTOMATED METHOD 05/28/2024 1:25 PM [facility] Nitrite, Urine Negative Negative LAB URINALYSIS - AUTOMATED METHOD 05/28/2024 1:25 PM [facility] Protein, Urine 30(A) <=Trace mg/dL LAB URINALYSIS - AUTOMATED METHOD 05/28/2024 1:25 PM [facility] Glucose, Urine >=1000(A) Negative mg/dL LAB URINALYSIS - AUTOMATED METHOD 05/28/2024 1:25 PM [facility] Ketones, Urine Negative Negative mg/dL LAB URINALYSIS - AUTOMATED METHOD 05/28/2024 1:25 PM [facility] Urobilinogen , Urine 0.2 0.2 - 1.0 mg/dL LAB URINALYSIS - AUTOMATED METHOD 05/28/2024 1:25 PM [facility] Bilirubin, Urine Small(A) Negative LAB URINALYSIS - AUTOMATED METHOD 05/28/2024 1:25 PM [facility] Blood, Urine Moderate(A) Negative LAB URINALYSIS - AUTOMATED METHOD 05/28/2024 1:25 PM [facility] RBC, Urine 185.1(H) 0 - 4 /HPF LAB URINALYSIS - AUTOMATED METHOD 05/28/2024 1:25 PM [facility] WBC, Urine 262.1(H) 0 - 4 /HPF LAB URINALYSIS - AUTOMATED METHOD 05/28/2024 1:25 PM [facility] Squamous Epithelial, Urine 26 0 - 60 /LPF LAB URINALYSIS - AUTOMATED METHOD 05/28/2024 1:25 PM [facility] Bacteria, Urine Many(A) Negative /HPF LAB URINALYSIS - AUTOMATED METHOD 05/28/2024 1:25 PM [facility] Hyaline Casts, Urine 0.0 0 - 3 /LPF LAB URINALYSIS - AUTOMATED METHOD 05/28/2024 1:25 PM [facility] Urine Urine specimen obtained by clean catch procedure / Unknown Non-blood Collection / Unknown 05/28/2024 12:46 PM EST 05/28/2024 1:02 PM EST us Surjit Chang MD LAB URINE ORDERABLES Final Res ult Performing Organization Address [facility]/ZIP Co de Phone Number [facility] [address] [place] [address], [place] [phone] * Kenny urine culture tube (05/28/2024 12:46 PM EST) Only the most recent of2 resultswithin the time period is included. Extra Tube Hold for add-ons. 05/28/2024 3:01 PM [facility] Comment:Auto resulted. Urine Urine specimen obtained by clean catch procedure / Unknown Non-blood Collection / Unknown 05/28/2024 12:46 PM EST 05/28/2024 1:02 PM EST us Surjit Chang MD LAB URINE ORDERABLES Final Res ult Performing Organization Address City/[facility]/ZIP Co de Phone Number [facility] [address] [place] [address], [place] [phone] * (ABNORMAL) Culture urine (05/28/2024 12:46 PM EST) Culture, Urine >100,000 CFU/mL Staphylococcus saprophyticus(A) NOHEMI 05/30/2024 10:[address] [facility] Comment: This is an edited [...] Staphylococcus saprophyticus Rifampin NOHEMI <=0.5 ug/ml: Susceptible us Surjit Chang MD LAB MICROBIOLOGY - GENERAL ORD ERABLES Final Result [facility] [address] [place] [address], * Vascular US duplex lower extremity venous [...] Signed Date: 05/22/2024 11:14 ET Workstation ID: [id number] Transcribed By: Self Edit Transcribed Date: 05/22/2024 [...] Signed Date: 05/22/2024 11:14 ET Workstation ID: [id number] Transcribed By: Self Edit Transcribed Date: 05/22/2024 11:14 ET us Adolph Martinez MD CV VASCULAR PROCEDURES Lilia l Result * XR Chest 2 Views (05/22/2024 4:07 [...] Signed Date: 05/22/2024 07:37 ET Workstation ID: [id number] Transcribed By: Self Edit Transcribed Date: 05/22/2024 [...] Signed Date: 05/22/2024 07:37 ET Workstation ID: [id number] Transcribed By: Self Edit Transcribed Date: 05/22/2024 07:34 ET us Adolph Martinez MD IMG XR PROCEDURES Final Res ult * B-type natriuretic peptide (05/21/2024 3:27 PM EST) BNP 7 <=100 pcg/mL LAB CHEMISTRY METHOD 05/21/2024 4:15 PM EST [facility] Blood Venous blood specimen / Unknown Venipuncture / Unknown 05/21/2024 3:27 PM EST 05/21/2024 3:36 PM EST us Adolph Martinez MD LAB BLOOD ORDERABLES Final Result [facility] [address] [facility] [place] [address], * GERARDO SCREENING DIGITAL (04/29/2022 1:05 PM EST) Anatomical Region Laterality Modality Mammography 04/29/2022 11:0 5 AM EST Narrative 04/29/2022 1:05 PM EST [facility] Diagnostic Imaging Department [address] [place] [address] Patient: ??RAFAL WARE ?/Age/Sex: 1965 - 56 - F Unit#: ??[id number] ? Location/Status: ??SPDIMAM/REG CLI ? Mnemonic/Ordering Site: ??DIGSC/SPMAM Ordering Physician: ??CARRI NUNEZ MD [facility] Screening Digital - 04/29/22 - 1138 INDICATION: SCREENING COMPARISON: [facility] mammograms dating back to ?? 11/22/2014 TECHNIQUE: CC and MLO views of the breasts were obtained, using full field digital mammography with 3D tomosynthesis views in the MLO projection. Computer aided detection with the [employer] 7.2-H was employed. FINDINGS: The breasts contain [...] date for the next mammogram. (G0202 / [id number]) , ??[id number] Dictating Physician: ??AMAN LENNON MD Electronically Signed by: ??AMAN LENNON MD Dic Date/Time: ??04/29/22 1302 Sign date/Time: ??04/29/22 1300 Procedure Note Aman Lennon MD - 07/16/2023 [facility] Diagnostic Imaging Department [address] [place] [address] Patient: RAFAL WARE /Age/Sex: 1965 - 56 - F Unit#: [id number] Location/Status: [facility] CLI Mnemonic/Ordering Site: [facility] Ordering Physician: CARRI NUNEZ MD Gerardo Screening Digital - 04/29/22 - 1138 INDICATION: SCREENING COMPARISON: [facility] mammograms dating back to 11/22/2014 TECHNIQUE: CC and MLO views of the breasts were obtained, using full field digital mammography with 3D tomosynthesis views in the MLO projection. Computer aided detection with the [employer] 7.2-H was employed. FINDINGS: The breasts contain [...] date for the next mammogram. (G0202 / [id number]) , [id number] Dictating Physician: AMAN LENNON MD Electronically Signed by: AMAN LENNON MD Dic Date/Time: 04/29/22 1302 Sign date/Time: 04/29/22 1305 Carri Nunez MD IMG BI PROCEDURES Final Resul t from Last 3 Months or Most Recently Relevant to Health Maintenance Insurance MEDICAID - [place] Advance Directives Documents on File Type Date Recorded Patient Information Systems Consultant Expl anation Health Care Decision (hx) 06/21/2022 [...] (hx) 06/21/2022 AD TALAMANTES DIRECTIVE Care Teams Sales Trainee Relationship Specialty Start Date End Date Carri Nunez MD [address] PCP - General 11/07/09
== END 2024-08-04 12:24 | disposition home or self-care (01) ==
PROVIDERS: PCP Internal Medicine; Visit Provider Orthopaedic Surgery
DX: M65.4 Radial styloid tenosynovitis [de Quervain] (principal); M18.12 Unilateral primary osteoarthritis of first carpometacarpal joint, left hand; M79.642 Pain in left hand; M25.641 Stiffness of right hand, not elsewhere classified; M25.642 Stiffness of left hand, not elsewhere classified; F33.9 Major depressive disorder, recurrent, unspecified
CPT/HCPCS: 99024

== ENCOUNTER → 2024-08-04 10:38 | Outpatient (BNVA) | payer MEDICAID, SELFPAY | PROVIDERS: PCP Internal Medicine; Visit Provider Orthopaedic Surgery | DX: M65.4 Radial styloid tenosynovitis [de Quervain] (principal); M18.12 Unilateral primary osteoarthritis of first carpometacarpal joint, left hand; M79.642 Pain in left hand; M25.641 Stiffness of right hand, not elsewhere classified; M25.642 Stiffness of left hand, not elsewhere classified; F33.9 Major depressive disorder, recurrent, unspecified | CPT/HCPCS: 99212 ==

== ENCOUNTER 2024-08-09 10:01 | Outpatient (AMB) | payer MEDICAID, SELFPAY ==
[2024-08-09 10:05] VITALS: BP 120/84; PULSE 96; O2SAT 99; BMI 37.3
--- NOTE | 2024-08-09 10:05 | A.OFFVIS_ITS ---
Vital Signs 08/09/24 10:05 Height 5 ft 6 in Weight 231 lb 2 oz BMI 37.3 BP 120/84 Blood Pressure Location Rt brachial Position Sitting Pulse 96 Pulse Source Pulse Oximeter Pulse Oximetry (%) 99 Oxygen Delivery Method Room Air Intake Visit Reasons: Botox Intake Note: Pt presents to the office today for botox injections. Allergies amoxicillin Allergy (Severe, Verified 08/09/24 10:08) yeast infection, itching gabapentin Allergy (Severe, Verified 08/09/24 10:08) Swelling meloxicam Allergy (Severe, Verified 08/09/24 10:08) Swelling baclofen Allergy (Intermediate, Verified 08/09/24 10:08) Swelling, sob lamotrigine Allergy (Unknown, Verified 08/09/24 10:08) Swelling HPI Comments Details: ? 59y/o female comes for treatment of migraines with botox. How many migraine days prior to botox 25-30/month How long do the migraines last 1-2 days Intensity of migraine8-10 ER visits related to migraine 1-2 Effectiveness of botox from last two treatment(s) How many migraine days since receiving treatment:5-10/month Change? in intensity of migraine?decreased Change in frequency of migraine?decreased Change in use of acute medication for migraine?decreased Change in quality of life?improved ER visits related to migraine?none Explanation for any gaps in treatment- hospitalized for syncope, malnutrition Have at least three months elapsed since last treatment (Last botox date - frequency of injections) 05/07 ??? Most frequent reported adverse reactions following injection of botox for chronic migraine include neck pain (9%), headache(5%), eyelid ptosis(4%), migraine(4%), muscular weakness(4%), musculuskeletal stiffness(4%), bronchitis(3%), injection site pain (3%), musculoskeletal pain(3%), myalgia(3%), facial paresis(2%), HTN(2%) and muscle spasms(2%) were discussed in detail. ??? Botulinum toxin typeA 200units Lot no [id number] expiration August 2026 was diluted with 4 cc of normal saline . ??? Muscles injected ??? Frontalis 4 sites ??? Procerus 1 site ??? Technician Biological Health- 2 sites ??? Temporalis- 8 sites ??? Occipitalis- 6 sites ??? Cervical paraspinals- 4 sites ??? Trapezius- 6 sites- 5 units each ??? 5 units each in 31 site ??? Total use- 155units ??? Discarded-45units [facility] Medical History Major depressive disorder, recurrent CVA (cerebral vascular accident) Seizure Personal history of nicotine dependence Cervicalgia Chronic migraine without aura, intractable, without status migrainosus History of low back pain Hx of myocardial infarction (~11/2022) Hx of migraines CKD (chronic kidney disease) History of blood transfusion (~04/2023) Weakness of both legs History of seizures Internal hernia Excess skin of upper extremity Lipoma History of lipoma Sleep apnea with use of continuous positive airway pressure (CPAP) Hypercholesterolemia Type 2 diabetes mellitus Anemia Lymphedema Migraines Anxiety Back pain Arthritis Carpal tunnel syndrome Body mass index (BMI) of 32.0-32.9 in adult Obesity (BMI 30-39.9) Intestinal malabsorption following gastrectomy H/O nephrolithotomy with removal of calculi Surgical History Hx of cataract surgery S/P brachioplasty S/P panniculectomy History of dental surgery (~06/2023) H/O hernia repair History of gastric surgery Hx of colonoscopy Hx of lumpectomy H/O cervical discectomy History of Zane-en-Y gastric bypass S/P carpal tunnel release Hx of section S/P knee replacement History of back surgery Family History Father No problems noted. Mother Arthritis Brother No problems noted. Brother No problems noted. Sister No problems noted. Sister No problems noted. Sister No problems noted. Sister No problems noted. Son No problems noted. Daughter No problems noted. 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 Caregiver staying overnight: No Housing: House Are you a primary primary care nurse practitioner to a significant other at home: No Do you presently have visiting nurse or other home services: Yes (BOBCAT OPERATOR 4 hr s/day) Alcohol intake: former Patient Tobacco Use Status: Former Tobacco user Tobacco use type: Cigarette Years Smoked: (former smoker 20pyh quit 2019) Advance Directives Date on File: 07/04/21 service: No Current occupational status: disabled Physical Exam Vital Signs: Last Vital Signs Pulse 96 08/09/24 10:05 BP 120/84 08/09/24 10:05 Pulse Ox 99 08/09/24 10:05 Oxygen Delivery Method Room Air 08/09/24 10:05 BMI result Body Mass Index 37.3 Const General: healthy appearing, no acute distress and well developed Nutritional Appearance: well nourished Orientation/consciousness: patient oriented x3 Neuro Other: walks with a walker Neck - severe tightness and tenderness in left splenius, semispinalis, trapezius, levator muscle with pain radiating to the left parietal temporla region General: patient oriented x3, tone normal and moves all extremities Psych Appearance: grossly normal Mental Status: mental status grossly normal Office Procedures Botulinum toxin Injection 37453 - Migraine Procedure code (CPT) selection complete Office Meds onabotulinumtoxinA 200 unit solution for injection Performing Provider: Yas Adam MD Performing Location: [facility] [place] [facility] Administered by: Yas Adam MD on 08/09/24 10:41 Dose Route Admin Location Dispensed Lot Number Expiration Date [facility] Acquisition Consultant 155 unit subcut 200 units [id number] ALLERGAN/BOTOX Comments: see hpi Assessment & Plan Assessment & Plan (1) Chronic migraine without aura: Comment: w/ neuralgia component over left orthodoxy Code(s): G43.709 - Chronic migraine without aura, not intractable, without status migrainosus Category: Medical Qualifiers: Status migrainosus presence: without status migrainosus Intractability: intractable Qualified Code(s): G43.719 - Chronic migraine without aura, intractable, without status migrainosus (2) Chronic migraine without aura, intractable, without status migrainosus: Code(s): G43.719 - Chronic migraine without aura, intractable, without status migrainosus Category: Medical (3) Cervicalgia: Code(s): M54.2 - Cervicalgia Category: Medical Plan Patient tolerated the procedure well . SHe will call with any side effects Orders: Orders AMB Botulinum toxin Injection Today G43.719 - Chronic migraine without aura, intractable, without status migrainosus Medications: New onabotulinumtoxinA 200 units subcut ONCE 1 ea 0RF migraine G43.719 - Chronic migraine without aura, intractable, without status migrainosus Coding Level of Care Code Est Pt Level 1 (16884) Diagnoses Intractable chronic migraine without aura and without status migrainosus G43.719 Status migrainosus presence: without status migrainosus Intractability: intractable Chronic migraine without aura, intractable, without status migrainosus G43.719 Cervicalgia M54.2 CPT Codes Botox Injection - Botox 3: 62555 - Migraine ([id number])
--- OUTSIDE RECORDS SUMMARY | 2024-08-09 12:03 | XMS_ITS | Encounter Summary ---
Author Organization [place] [address] Care Team Providers Care Tire Rebuilder Name Role Phone Carri Reynoso MD Primary Care Provider [phone] Reason for Visit * Reason Comments Chest Pain Cough Encounter Details Date Type Department Care Team (Late st Contact Info) Description 07/21/2024 9:37 PM EST - 07/22/2024 3:56 AM EST Emergency [facility] Emergency [address] [place] [address] Pleurisy (Primary Dx); Viral upper respiratory tract [...] 3:16 AM EST Thank you for choosing [facility]'s Emergency Department for your care today. [...] a primary care physician, please call the [facility] at [phone] toestablish a new primary care physician. Please return to the emergency department if you develop a sudden severe change in your symptoms, afever over 100.4,, severe or recurrent vomiting,, or a sudden increase in pain, or if you experience any other new or worsening symptoms or concerns. * Attachments The following attachments cannot be sent through Care Everywhere. * Chest Pain: Musculoskeletal (Zimbabwean) * Pleurisy (Zimbabwean) * URI (Upper Respiratory Infection): Viral (Zimbabwean) documented in this encounter Discharge Disposition Disposition [...] 59-year-old female with reported remote history of MT and CVA in 2002, as well as [...] SURGERY; COMMENT: L5 fusion Dr Issa at [facility] ??? COLONOSCOPY PROCEDURE: HISTORICAL COLONOSCOPY ??? COLONOSCOPY PROCEDURE: HISTORICAL COLONOSCOPY; COMMENT: Performed on November 28, 2020 ??? GASTRIC BYPASS PROCEDURE: GASTRIC BYPASS FOR OBESIT; COMMENT: performed one yr ago ??? HERNIA REPAIR PROCEDURE: [place] REPAIR FIRST ABDOMINAL WALL HERNIA Social History [...] Absolute 0.02 Immature Granulocytes Absolute 0.04 (*) [id number], RSV, FLU A AND B QUALITATIVE RT-PCR, INTERNAL LAB - Normal Influenza A PCR Not Detected Influenza B PCR Not Detected RSV PCR Not Detected SARS COV-2 Not Detected Narrative: Disclaimer: Testing was performed using the [employer] GeneXpert Xpress SARS-CoV-2 _Flu_RSV PLUS PCR assay. [...] for Healthcare providers can be found at https://www.fda.gov/media/206002/download. Fact sheet for Healthcare patients can be found at https://www.fda.gov/media/610993/download. TROPONIN I HIGH SENSITIVITY - Normal High [...] Procedure Abnormality Status --------- ------ CBC auto differential[[id number]] Abnormal Final result Please view results for [...] patient has been ruled out for PE, MT, pneumonia, pneumothorax, pleural effusion, pancreatitis, or other [...] 1,000 mg (1,000 mg oral Given 07/21/24 4481) Procedures Procedures Diagnosis 1. Pleurisy CT Angio [...] CONTRAST STAT 07/21/2024 11:26 PM EST Pleurisy [id number], RSV, FLU A AND B QUALITATIVE RT-PCR, [...] LAB CHEMISTRY METHOD 07/22/2024 1:17 AM EST [facility] Blood Venous blood specimen / Unknown Venipuncture / Unknown 07/21/2024 11:35 PM EST 07/22/2024 12:00 AM EST Celso ARGUELLES LAB BLOOD ORDERABLES Final Resul t Performing Organization Address [facility] de Phone Number [facility] [address] [place] [address], [place] [phone] * (ABNORMAL) Magnesium (07/21/2024 11:35 PM EST) [facility] Magnesium 1.8(L) 1.9 - 2.6 mg/dL LAB CHEMISTRY METHOD 07/22/2024 12:36 AM EST [facility] Blood Venous blood specimen / Unknown Venipuncture / Unknown 07/21/2024 11:35 PM EST 07/22/2024 12:00 AM EST Tara Francis DO LAB BLOOD ORDERABLES Lilia l Result Performing Organization Address [facility] de Phone Number [facility] [address] [place] [address], [place] [phone] * Troponin I high sensitivity (NOW and then in 1 hour) (07/21/2024 11:35 PM EST) [facility] High Sensitivity Troponin I 4 <=54 ng/L LAB CHEMISTRY METHOD 07/22/2024 12:34 AM EST [facility] Blood Venous blood specimen / Unknown Venipuncture / Unknown 07/21/2024 11:35 PM EST 07/22/2024 12:00 AM EST Narrative [facility] - 07/22/2024 12:34 AM EST High levels of biotin in samples may falsely decrease hsTroponin values. ??Use caution when interpreting hsTroponin results in patients taking biotin who exhibit renal impairment (eGFR <60) or in patients taking more than 20 mg/day of biotin. Tara Francis DO LAB BLOOD ORDERABLES Lilia l Result Performing Organization Address [facility] Co de Phone Number [facility] [address] [place] [address], * (ABNORMAL) Comprehensive metabolic panel (07/21/2024 11:35 PM EST) Sodium 135 133 - 145 mmol/L LAB CHEMISTRY METHOD 07/22/2024 12:38 AM [facility] Potassium 4.1 3.5 - 5.5 mmol/L LAB CHEMISTRY METHOD 07/22/2024 12:38 AM [facility] Chloride 105 96 - 110 mmol/L LAB CHEMISTRY METHOD 07/22/2024 12:38 AM [facility] CO2 24 21 - 32 mmol/L LAB CHEMISTRY METHOD 07/22/2024 12:38 AM [facility] Anion Gap 6 3 - 11 LAB CHEMISTRY METHOD 07/22/2024 12:38 AM [facility] Glucose 81 70 - 100 mg/dL LAB CHEMISTRY METHOD 07/22/2024 12:38 AM [facility] BUN 17 5 - 25 mg/dL LAB CHEMISTRY METHOD 07/22/2024 12:38 AM [facility] Creatinine 0.76 0.50 - 1.10 mg/dL LAB CHEMISTRY METHOD 07/22/2024 12:38 AM [facility] eGFR 92 >=60 mL/min/1. 73m2 LAB CHEMISTRY METHOD 07/22/2024 12:38 AM [facility] Comment:Calculation based on the??Chronic Kidney Disease Epidemiology Collaboration (CKD-EPI) equation refit??without adjustment for race. BUN/Creatinine Ratio 22.4 LAB CHEMISTRY METHOD 07/22/2024 12:38 AM [facility] Calcium 7.6(L) 8.5 - 10.5 mg/dL LAB CHEMISTRY METHOD 07/22/2024 12:38 AM [facility] AST (SGOT) 20 10 - 42 unit/L LAB CHEMISTRY METHOD 07/22/2024 12:38 AM EST [facility] ALT (SGPT) 41 10 - 60 unit/L LAB CHEMISTRY METHOD 07/22/2024 12:38 AM [facility] Alkaline Phosphatase 187(H) 42 - 121 unit/L LAB CHEMISTRY METHOD 07/22/2024 12:38 AM [facility] Total Protein 5.5(L) 6.0 - 8.0 g/dL LAB CHEMISTRY METHOD 07/22/2024 12:38 AM [facility] Albumin 2.5(L) 3.2 - 5.0 g/dL LAB CHEMISTRY METHOD 07/22/2024 12:38 AM [facility] Total Bilirubin 0.1 0.0 - 1.4 mg/dL LAB CHEMISTRY METHOD 07/22/2024 12:38 AM [facility] Blood Venous blood specimen / Unknown Venipuncture / Unknown 07/21/2024 11:35 PM EST 07/22/2024 12:00 AM EST us Abdifatah Ortiz Elver Tito DO LAB BLOOD ORDERABLES Lilia l Result [facility] [address] [place] [address], [place] [phone] * CT Angio Chest wo and/or w [...] Lr MD on 07/22/2024 00:18:04 Celso ARGUELLES [facility] PROCEDURES Final Result * [id number], RSV, Influenza A and B qualitative RT-PCR (07/21/2024 10:35 PM EST) Influenza A PCR Not Detected Not Detected LAB MICROBIOLOGY METHOD 07/21/2024 11:33 PM EST [facility] Influenza B PCR Not Detected Not Detected LAB MICROBIOLOGY METHOD 07/21/2024 11:33 PM EST [facility] RSV PCR Not Detected Not Detected LAB MICROBIOLOGY METHOD 07/21/2024 11:33 PM EST [facility] SARS COV-2 Not Detected Not Detected LAB MICROBIOLOGY METHOD 07/21/2024 11:33 PM EST [facility] Swab Both anterior nares / Unknown Non-blood Collection / Unknown 07/21/2024 10:35 PM EST 07/21/2024 10:50 PM EST Narrative [facility] - 07/21/2024 11:33 PM EST Disclaimer: ??Testing was performed using the [employer] GeneXpert Xpress SARS-CoV-2 _Flu_RSV PLUS PCR assay. [...] for Healthcare providers can be found at https://www.fda.gov/media/097664/download. ?? Fact sheet for Healthcare patients can be found at https://www.fda.gov/media/307201/download. Celso ARGUELLES LAB MICROBIOLOGY - GENERAL ORDER ANA Final Result [facility] [address] [place] [address], * (ABNORMAL) CBC auto differential (07/21/2024 10:34 PM EST) Pathologist [facility] WBC 8.0 4.8 - 10.8 K/mcL LAB HEMETOLOGY METHOD 07/21/2024 10:59 PM [facility] RBC 4.50 3.80 - 4.80 M/mcL LAB HEMETOLOGY METHOD 07/21/2024 10:59 PM [facility] Hemoglobin 11.9 11.5 - 16.0 g/dL LAB HEMETOLOGY METHOD 07/21/2024 10:59 PM [facility] Hematocrit 39.6 35.0 - 47.0 % LAB HEMETOLOGY METHOD 07/21/2024 10:59 PM [facility] MCV 88.0 79.0 - 98.0 FL LAB HEMETOLOGY METHOD 07/21/2024 10:59 PM [facility] MCH 26.4(L) 27.0 - 32.0 pcg LAB HEMETOLOGY METHOD 07/21/2024 10:59 PM [facility] MCHC 30.1(L) 32.0 - 37.0 g/dL LAB HEMETOLOGY METHOD 07/21/2024 10:59 PM [facility] RDW 14.4 11.0 - 15.0 % LAB HEMETOLOGY METHOD 07/21/2024 10:59 PM [facility] Platelets 120(L) 130 - 400 K/mcL LAB HEMETOLOGY METHOD 07/21/2024 10:59 PM [facility] MPV 11.1(H) 7.0 - 11.0 FL LAB HEMETOLOGY METHOD 07/21/2024 10:59 PM [facility] NRBC 0.0 <1.0 % LAB HEMETOLOGY METHOD 07/21/2024 10:59 PM [facility] NRBC Absolute 0.00 <0.10 K/mcL LAB HEMETOLOGY METHOD 07/21/2024 10:59 PM [facility] Neutrophils Relative 77.7 % LAB HEMETOLOGY METHOD 07/21/2024 10:59 PM [facility] Lymphocytes Relative 12.2 % LAB HEMETOLOGY METHOD 07/21/2024 10:59 PM [facility] Monocytes Relative 7.7 % LAB HEMETOLOGY METHOD 07/21/2024 10:59 PM [facility] Eosinophils Relative 1.7 % LAB HEMETOLOGY METHOD 07/21/2024 10:59 PM [facility] Basophils Relative 0.2 % LAB HEMETOLOGY METHOD 07/21/2024 10:59 PM [facility] Immature Granulocytes Relative 0.5 % LAB HEMETOLOGY METHOD 07/21/2024 10:59 PM [facility] Neutrophils Absolute 6.21 1.50 - 7.00 K/mcL LAB HEMETOLOGY METHOD 07/21/2024 10:59 PM [facility] Lymphocytes Absolute 0.98(L) 1.00 - 5.00 K/mcL LAB HEMETOLOGY METHOD 07/21/2024 10:59 PM [facility] Monocytes Absolute 0.62 0.20 - 1.00 K/mcL LAB HEMETOLOGY METHOD 07/21/2024 10:59 PM [facility] Eosinophils Absolute 0.14 0.00 - 0.50 K/mcL LAB HEMETOLOGY METHOD 07/21/2024 10:59 PM [facility] Basophils Absolute 0.02 0.00 - 0.20 K/mcL LAB HEMETOLOGY METHOD 07/21/2024 10:59 PM [facility] Immature Granulocytes Absolute 0.04(H) 0.00 - 0.03 K/mcL LAB HEMETOLOGY METHOD 07/21/2024 10:59 PM [facility] Blood Venous blood specimen / Unknown Venipuncture / Unknown 07/21/2024 10:34 PM EST 07/21/2024 10:49 PM EST Tara Francis DO LAB BLOOD ORDERABLES Lilia l Result Performing Organization Address [facility]/ZIP Co de Phone Number [facility] [address] [place] [address], [place] [phone] * Troponin I high sensitivity (NOW and then in 1 hour) (07/21/2024 10:34 PM EST) [facility] High Sensitivity Troponin I 4 <=54 ng/L LAB CHEMISTRY METHOD 07/21/2024 11:24 PM EST [facility] Blood Venous blood specimen / Unknown Venipuncture / Unknown 07/21/2024 10:34 PM EST 07/21/2024 10:49 PM EST Narrative [facility] - 07/21/2024 11:24 PM EST High levels of biotin in samples may falsely decrease hsTroponin values. ??Use caution when interpreting hsTroponin results in patients taking biotin who exhibit renal impairment (eGFR <60) or in patients taking more than 20 mg/day of biotin. Tara Francis DO LAB BLOOD ORDERABLES Lilia l Result Performing Organization Address [facility] de Phone Number [facility] [address] [place] [address], [place] [phone] * ECG 12 lead (07/21/2024 10:22 PM EST) [facility] Ventricular Rate ECG 94 BPM GEMUSE Atrial Rate 94 BPM GEMUSE P-R Interval 110 ms GEMUSE QRS Duration 76 ms GEMUSE Q-T Interval 350 ms GEMUSE QTc 437 ms GEMUSE P Wave Fontana 53 degrees GEMUSE R Fontana -6 degrees GEMUSE T Font[place] 22 degrees GEMUSE ECG Interpretation Sinus rhythm [...] For 1 dose 2318 (Given - Provider: dA Barnhart) lidocaine (XYLOCAINE) 2 % mouth solution [...] documented as of this encounter Care Teams Tire Rebuilder Relationship Specialty Start Date End Date Carri Reynoso MD [address] [facility] [address] [place], [place] PCP - General 11/07/09 documented as of this encounter
--- OUTSIDE RECORDS SUMMARY | 2024-08-09 12:04 | XMS_ITS | Clinical Summary ---
Author Organization [facility] Address [address] [place] [address] Phone Care Team Providers Care Transmission And Protection Engineer Name Role Phone Carri Nunez MD Primary Care Provider [phone] Allergies Active Allergy Reactions Criticality Noted Date Comments Amoxicillin Hives,Rash 01/19/2022 Clonidine Hcl 04/30/2011 Gabapentin Swelling 01/19/2022 Meloxicam Anaphylaxis High 01/19/2022 Medications furosemide (LASIX) 20 mg tablet Take 3 tablets (60 mg total) by mouth 1 (one) time each day for 7 days. 21 each 05/22/2024 Active Encounters Date Type Department Care Team Description 07/21/2024 9:37 PM EST - 07/22/2024 3:56 AM [facility] Emergency [address] [place] [phone] Pleurisy (Primary Dx); Viral upper respiratory tract infection; Anterior chest wall pain Discharge Disposition: Home or Self Care 05/28/2024 11:34 AM EST - 05/28/2024 2:01 PM [facility] Emergency [address] [place] [phone] Encounter for assessment of Mora catheter (Primary Dx) Discharge Disposition: Home or Self Care 05/22/2024 8:48 AM EST - 05/22/2024 2:42 PM [facility] Emergency [address] [place] [phone] Adolph Martinez MD Swelling of both lower extremities (Primary Dx); Urinary retention Discharge Disposition: Home or Self Care from Last 3 Months Surgical History Surgery Date Site/Laterality Comments BACK SURGERY 1999 PROCEDURE: HISTORICAL BACK SURGERY; COMMENT: L5 fusion Dr Issa at [facility] GASTRIC BYPASS PROCEDURE: GASTRIC BYPASS FOR OBESIT; COMMENT: performed one yr ago COLONOSCOPY PROCEDURE: HISTORICAL COLONOSCOPY COLONOSCOPY PROCEDURE: HISTORICAL COLONOSCOPY; COMMENT: Performed on November 28, 2020 HERNIA REPAIR PROCEDURE: NE REPAIR FIRST ABDOMINAL WALL HERNIA Medical History [...] CONTRAST STAT 07/21/2024 11:26 PM EST Pleurisy [id number], RSV, FLU A AND B QUALITATIVE RT-PCR, [...] LAB CHEMISTRY METHOD 07/22/2024 12:34 AM EST [facility] Blood Venous blood specimen / Unknown Venipuncture / Unknown 07/21/2024 11:35 PM EST 07/22/2024 12:00 AM EST Narrative [facility] - 07/22/2024 12:34 AM EST High levels of biotin in samples may falsely decrease hsTroponin values. ??Use caution when interpreting hsTroponin results in patients taking biotin who exhibit renal impairment (eGFR <60) or in patients taking more than 20 mg/day of biotin. us Gardinervarun Ortiz Elver Francis DO LAB BLOOD ORDERABLES Lilia l Result Performing Organization Address [facility] Co de Phone Number [facility] [address] [place] [address], [place] [phone] * (ABNORMAL) Magnesium (07/21/2024 11:35 PM EST) Only the most recent of2 resultswithin the time period is included. Magnesium 1.8(L) 1.9 - 2.6 mg/dL LAB CHEMISTRY METHOD 07/22/2024 12:36 AM EST [facility] Blood Venous blood specimen / Unknown Venipuncture / Unknown 07/21/2024 11:35 PM EST 07/22/2024 12:00 AM EST Tara Raya Francis DO LAB BLOOD ORDERABLES Lilia l Result Performing Organization Address [facility]/ZIP Co de Phone Number [facility] [address] [place] [address], [place] [phone] * Lipase (07/21/2024 11:35 PM EST) Only the most recent of2 resultswithin the time period is included. Lipase 14 13 - 75 unit/L LAB CHEMISTRY METHOD 07/22/2024 1:17 AM EST [facility] Blood Venous blood specimen / Unknown Venipuncture / Unknown 07/21/2024 11:35 PM EST 07/22/2024 12:00 AM EST us Celso ARGUELLES LAB BLOOD ORDERABLES Final Resul t [facility] [address] [place] [address], * (ABNORMAL) Comprehensive metabolic panel (07/21/2024 11:35 PM EST) Only the most recent of2 resultswithin the time period is included. Sodium 135 133 - 145 mmol/L LAB CHEMISTRY METHOD 07/22/2024 12:38 AM [facility] Potassium 4.1 3.5 - 5.5 mmol/L LAB CHEMISTRY METHOD 07/22/2024 12:38 AM [facility] Chloride 105 96 - 110 mmol/L LAB CHEMISTRY METHOD 07/22/2024 12:38 AM [facility] CO2 24 21 - 32 mmol/L LAB CHEMISTRY METHOD 07/22/2024 12:38 AM [facility] Anion Gap 6 3 - 11 LAB CHEMISTRY METHOD 07/22/2024 12:38 AM [facility] Glucose 81 70 - 100 mg/dL LAB CHEMISTRY METHOD 07/22/2024 12:38 AM [facility] BUN 17 5 - 25 mg/dL LAB CHEMISTRY METHOD 07/22/2024 12:38 AM [facility] Creatinine 0.76 0.50 - 1.10 mg/dL LAB CHEMISTRY METHOD 07/22/2024 12:38 AM [facility] eGFR 92 >=60 mL/min/1. 73m2 LAB CHEMISTRY METHOD 07/22/2024 12:38 AM [facility] Comment:Calculation based on the??Chronic Kidney Disease Epidemiology Collaboration (CKD-EPI) equation refit??without adjustment for race. BUN/Creatinine Ratio 22.4 LAB CHEMISTRY METHOD 07/22/2024 12:38 AM [facility] Calcium 7.6(L) 8.5 - 10.5 mg/dL LAB CHEMISTRY METHOD 07/22/2024 12:38 AM [facility] AST (SGOT) 20 10 - 42 unit/L LAB CHEMISTRY METHOD 07/22/2024 12:38 AM [facility] ALT (SGPT) 41 10 - 60 unit/L LAB CHEMISTRY METHOD 07/22/2024 12:38 AM [facility] Alkaline Phosphatase 187(H) 42 - 121 unit/L LAB CHEMISTRY METHOD 07/22/2024 12:38 AM [facility] Total Protein 5.5(L) 6.0 - 8.0 g/dL LAB CHEMISTRY METHOD 07/22/2024 12:38 AM [facility] Albumin 2.5(L) 3.2 - 5.0 g/dL LAB CHEMISTRY METHOD 07/22/2024 12:38 AM [facility] Total Bilirubin 0.1 0.0 - 1.4 mg/dL LAB CHEMISTRY METHOD 07/22/2024 12:38 AM [facility] Blood Venous blood specimen / Unknown Venipuncture / Unknown 07/21/2024 11:35 PM EST 07/22/2024 12:00 AM EST us Tara Francis DO LAB BLOOD ORDERABLES Lilia l Result [facility] [address] [place] [address], [place] [phone] * CT Angio Chest wo and/or w [...] ARGUELLES Varun CT PROCEDURES Final Result * [id number], RSV, Influenza A and B qualitative RT-PCR (07/21/2024 10:35 PM EST) Influenza A PCR Not Detected Not Detected LAB MICROBIOLOGY METHOD 07/21/2024 11:33 PM EST [facility] Influenza B PCR Not Detected Not Detected LAB MICROBIOLOGY METHOD 07/21/2024 11:33 PM EST [facility] RSV PCR Not Detected Not Detected LAB MICROBIOLOGY METHOD 07/21/2024 11:33 PM EST [facility] SARS COV-2 Not Detected Not Detected LAB MICROBIOLOGY METHOD 07/21/2024 11:33 PM [facility] Swab Both anterior nares / Unknown Non-blood Collection / Unknown 07/21/2024 10:35 PM EST 07/21/2024 10:50 PM EST [facility] - 07/21/2024 11:33 PM EST Disclaimer: ??Testing was performed using the Get[employer] GeneXpert Xpress SARS-CoV-2 _Flu_RSV PLUS PCR assay. [...] for Healthcare providers can be found at https://www.fda.gov/media/657251/download. ?? Fact sheet for Healthcare patients can be found at https://www.fda.gov/media/662463/download. Celso ARGUELLES LAB MICROBIOLOGY - GENERAL ORDER ANA Final Result [facility] [address] [place] [address], * (ABNORMAL) CBC auto differential (07/21/2024 10:34 PM EST) Only the most recent of2 resultswithin the time period is included. WBC 8.0 4.8 - 10.8 K/mcL LAB HEMETOLOGY METHOD 07/21/2024 10:59 PM [facility] RBC 4.50 3.80 - 4.80 M/mcL LAB HEMETOLOGY METHOD 07/21/2024 10:59 PM [facility] Hemoglobin 11.9 11.5 - 16.0 g/dL LAB HEMETOLOGY METHOD 07/21/2024 10:59 PM [facility] Hematocrit 39.6 35.0 - 47.0 % LAB HEMETOLOGY METHOD 07/21/2024 10:59 PM EST [facility] MCV 88.0 79.0 - 98.0 FL LAB HEMETOLOGY METHOD 07/21/2024 10:59 PM [facility] MCH 26.4(L) 27.0 - 32.0 pcg LAB HEMETOLOGY METHOD 07/21/2024 10:59 PM [facility] MCHC 30.1(L) 32.0 - 37.0 g/dL LAB HEMETOLOGY METHOD 07/21/2024 10:59 PM EST [facility] RDW 14.4 11.0 - 15.0 % LAB HEMETOLOGY METHOD 07/21/2024 10:59 PM [facility] Platelets 120(L) 130 - 400 K/mcL LAB HEMETOLOGY METHOD 07/21/2024 10:59 PM [facility] MPV 11.1(H) 7.0 - 11.0 FL LAB HEMETOLOGY METHOD 07/21/2024 10:59 PM [facility] NRBC 0.0 <1.0 % LAB HEMETOLOGY METHOD 07/21/2024 10:59 PM [facility] NRBC Absolute 0.00 <0.10 K/mcL LAB HEMETOLOGY METHOD 07/21/2024 10:59 PM [facility] Neutrophils Relative 77.7 % LAB HEMETOLOGY METHOD 07/21/2024 10:59 PM [facility] Lymphocytes Relative 12.2 % LAB HEMETOLOGY METHOD 07/21/2024 10:59 PM [facility] Monocytes Relative 7.7 % LAB HEMETOLOGY METHOD 07/21/2024 10:59 PM [facility] Eosinophils Relative 1.7 % LAB HEMETOLOGY METHOD 07/21/2024 10:59 PM [facility] Basophils Relative 0.2 % LAB HEMETOLOGY METHOD 07/21/2024 10:59 PM [facility] Immature Granulocytes Relative 0.5 % LAB HEMETOLOGY METHOD 07/21/2024 10:59 PM [facility] Neutrophils Absolute 6.21 1.50 - 7.00 K/mcL LAB HEMETOLOGY METHOD 07/21/2024 10:59 PM [facility] Lymphocytes Absolute 0.98(L) 1.00 - 5.00 K/mcL LAB HEMETOLOGY METHOD 07/21/2024 10:59 PM [facility] Monocytes Absolute 0.62 0.20 - 1.00 K/mcL LAB HEMETOLOGY METHOD 07/21/2024 10:59 PM [facility] Eosinophils Absolute 0.14 0.00 - 0.50 K/mcL LAB HEMETOLOGY METHOD 07/21/2024 10:59 PM [facility] Basophils Absolute 0.02 0.00 - 0.20 K/mcL LAB HEMETOLOGY METHOD 07/21/2024 10:59 PM EST [facility] Immature Granulocytes Absolute 0.04(H) 0.00 - 0.03 K/mcL LAB HEMETOLOGY METHOD 07/21/2024 10:59 PM EST [facility] Blood Venous blood specimen / Unknown Venipuncture / Unknown 07/21/2024 10:34 PM EST 07/21/2024 10:49 PM EST Tara Ortiz Elver Francis DO LAB BLOOD ORDERABLES Lilia l Result [facility]) [facility] [address] [place] [address], [place] [phone] * ECG 12 lead (07/21/2024 10:22 PM EST) Only the most recent of3 resultswithin the time period is included. Ventricular Rate ECG 94 BPM GEMUSE Atrial Rate 94 BPM GEMUSE P-R Interval 110 ms GEMUSE QRS Duration 76 ms GEMUSE Q-T Interval 350 ms GEMUSE QTc 437 ms GEMUSE P Wave Manley 53 degrees GEMUSE R Manley -6 degrees GEMUSE T Manley 22 degrees GEMUSE ECG Interpretation Sinus rhythm [...] resultswithin the time period is included. Specific [place] Urine 1.027 1.003 - 1.030 LAB URINALYSIS - AUTOMATED METHOD 05/28/2024 1:25 PM [facility] pH, Urine 7.0 5.0 - 8.0 pH LAB URINALYSIS - AUTOMATED METHOD 05/28/2024 1:25 PM [facility] Leukocytes, Urine Moderate(A) Negative LAB URINALYSIS - AUTOMATED METHOD 05/28/2024 1:25 PM [facility] Nitrite, Urine Negative Negative LAB URINALYSIS - AUTOMATED METHOD 05/28/2024 1:25 PM [facility] Protein, Urine 30(A) <=Trace mg/dL LAB URINALYSIS - AUTOMATED METHOD 05/28/2024 1:25 PM [facility] Glucose, Urine >=1000(A) Negative mg/dL LAB URINALYSIS - AUTOMATED METHOD 05/28/2024 1:25 PM [facility] Ketones, Urine Negative Negative mg/dL LAB URINALYSIS - AUTOMATED METHOD 05/28/2024 1:25 PM [facility] Urobilinogen , Urine 0.2 0.2 - 1.0 mg/dL LAB URINALYSIS - AUTOMATED METHOD 05/28/2024 1:25 PM [facility] Bilirubin, Urine Small(A) Negative LAB URINALYSIS - AUTOMATED METHOD 05/28/2024 1:25 PM [facility] Blood, Urine Moderate(A) Negative LAB URINALYSIS - AUTOMATED METHOD 05/28/2024 1:25 PM [facility] RBC, Urine 185.1(H) 0 - 4 /HPF LAB URINALYSIS - AUTOMATED METHOD 05/28/2024 1:25 PM [facility] WBC, Urine 262.1(H) 0 - 4 /HPF LAB URINALYSIS - AUTOMATED METHOD 05/28/2024 1:25 PM [facility] Squamous Epithelial, Urine 26 0 - 60 /LPF LAB URINALYSIS - AUTOMATED METHOD 05/28/2024 1:25 PM [facility] Bacteria, Urine Many(A) Negative /HPF LAB URINALYSIS - AUTOMATED METHOD 05/28/2024 1:25 PM [facility] Hyaline Casts, Urine 0.0 0 - 3 /LPF LAB URINALYSIS - AUTOMATED METHOD 05/28/2024 1:25 PM [facility] Urine Urine specimen obtained by clean catch procedure / Unknown Non-blood Collection / Unknown 05/28/2024 12:46 PM EST 05/28/2024 1:02 PM EST us Surjit Chang MD LAB URINE ORDERABLES Final Res ult Performing Organization Address [facility]/ZIP Co de Phone Number [facility] [address] [place] [address], [place] [phone] * Kenny urine culture tube (05/28/2024 12:46 PM EST) Only the most recent of2 resultswithin the time period is included. Extra Tube Hold for add-ons. 05/28/2024 3:01 PM [facility] Comment:Auto resulted. Urine Urine specimen obtained by clean catch procedure / Unknown Non-blood Collection / Unknown 05/28/2024 12:46 PM EST 05/28/2024 1:02 PM EST us Surjit Chang MD LAB URINE ORDERABLES Final Res ult Performing Organization Address City/[facility]/ZIP Co de Phone Number [facility] [address] [place] [address], [place] [phone] * (ABNORMAL) Culture urine (05/28/2024 12:46 PM EST) Culture, Urine >100,000 CFU/mL Staphylococcus saprophyticus(A) NOHEMI 05/30/2024 10:47 AM EST [facility] Comment: This is an edited result. [...] MICROBIOLOGY - GENERAL ORD ERABLES Final Result [facility] [address] [place] [address], * Vascular US duplex lower extremity venous [...] Signed Date: 05/22/2024 11:14 ET Workstation ID: [id number] Transcribed By: Self Edit Transcribed Date: 05/22/2024 [...] Signed Date: 05/22/2024 11:14 ET Workstation ID: [id number] Transcribed By: Self Edit Transcribed Date: 05/22/2024 [...] Signed Date: 05/22/2024 07:37 ET Workstation ID: [id number] Transcribed By: Self Edit Transcribed Date: 05/22/2024 [...] Signed Date: 05/22/2024 07:37 ET Workstation ID: [id number] Transcribed By: Self Edit Transcribed Date: 05/22/2024 07:34 ET us Adolph Martinez MD IMG XR PROCEDURES Final Res ult * B-type natriuretic peptide (05/21/2024 3:27 PM EST) BNP 7 <=100 pcg/mL LAB CHEMISTRY METHOD 05/21/2024 4:15 PM EST [facility] Blood Venous blood specimen / Unknown Venipuncture / Unknown 05/21/2024 3:27 PM EST 05/21/2024 3:36 PM EST us Adolph Martinez MD LAB BLOOD ORDERABLES Final Result [facility] [address] [place] [address], * GERARDO SCREENING DIGITAL (04/29/2022 1:05 PM EST) Anatomical Region Laterality Modality Mammography 04/29/2022 11:0 5 AM EST Narrative 04/29/2022 1:05 PM EST [facility] Diagnostic Imaging Department [address] [place] [address] Patient: ??RAFAL WARE ?/Age/Sex: 1965 - 56 - F Unit#: ??[id number] ? Location/Status: ??SPDIMAM/REG CLI ? Mnemonic/Ordering Site: ??DIGSC/SPMAM Ordering Physician: ??CARRI NUNEZ MD [facility] Screening Digital - 04/29/22 - 1138 INDICATION: SCREENING COMPARISON: [facility] mammograms dating back to ?? 11/22/2014 TECHNIQUE: CC and MLO views of the breasts were obtained, using full field digital mammography with 3D tomosynthesis views in the MLO projection. Computer aided detection with the Solazyme 7.2-H was employed. FINDINGS: The breasts contain [...] date for the next mammogram. (G0202 / 84138) , ??[id number] Dictating Physician: ??AMAN LENNON MD Electronically Signed by: ??AMAN LENNON MD Dic Date/Time: ??04/29/22 1302 Sign date/Time: ??04/29/22 1308 Procedure Note Aman Lennon MD - 07/16/2023 [facility] Diagnostic Imaging Department [address] [place] [address] Patient: RAFAL WARE /Age/Sex: 1965 - 56 - F Unit#: [id number] Location/Status: [facility] CLI Mnemonic/Ordering Site: [facility] Ordering Physician: CARRI NUNEZ MD [facility] Screening Digital - 04/29/22 - 1138 INDICATION: SCREENING COMPARISON: [facility] mammograms dating back to 11/22/2014 TECHNIQUE: CC and MLO views of the breasts were obtained, using full field digital mammography with 3D tomosynthesis views in the MLO projection. Computer aided detection with the Solazyme 7.2-H was employed. FINDINGS: The breasts contain [...] date for the next mammogram. 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
== END 2024-08-09 10:51 | disposition home or self-care (01) ==
PROVIDERS: PCP Internal Medicine; Visit Provider Psychiatry & Neurology Neurology
DX: G43.719 Chronic migraine without aura, intractable, without status migrainosus (principal)
CPT/HCPCS: 64615

== ENCOUNTER → 2024-08-09 10:01 | Outpatient (BNVA) | payer MEDICAID, SELFPAY | PROVIDERS: PCP Internal Medicine; Visit Provider Psychiatry & Neurology Neurology | DX: G43.719 Chronic migraine without aura, intractable, without status migrainosus (principal); M54.2 Cervicalgia | CPT/HCPCS: 64615; 99211; J0585 ==

== ENCOUNTER 2024-09-12 07:54 | Outpatient (REF) | payer MEDICAID, SELFPAY ==
--- NOTE | ~2024-09-12 | CT_ITS ---
CLINICAL HISTORY: R10.9 - Unspecified abdominal pain CT abdomen and pelvis with contrast Comparison: CT/SR - CT ABDOMEN PELVIS W IV CON - 04/16/23 16:[address] - CT ABDOMEN PELVIS W IV CON - 04/16/23 16:45 EDT Findings: No consolidation or effusion. Cholecystectomy clips are present. Solid organs are within normal limits. No bowel obstruction, pneumoperitoneum, or pneumatosis. Gastric bypass has been performed. Pelvic contents unremarkable. Normal appendix. The bones are intact. IMPRESSION: No acute findings. This document has been electronically signed by: Veto Miller MD on 09/12/2024 15:51:48
--- OUTSIDE RECORDS SUMMARY | 2024-09-12 07:56 | XMS_ITS | Clinical Summary ---
Author Organization [facility] Address [address] [place] [address] Phone Care Team Providers Care Saw Operator Name Role Phone Carri Nunez MD Primary Care Provider [phone] Allergies Active Allergy Reactions Criticality Noted Date Comments Amoxicillin Hives,Rash 01/19/2022 Clonidine Hcl 04/30/2011 Gabapentin Swelling 01/19/2022 Meloxicam Anaphylaxis High 01/19/2022 Medications furosemide (LASIX) 20 mg tablet Take 3 tablets (60 mg total) by mouth 1 (one) time each day for 7 days. 21 each 05/22/2024 Active predniSONE (DELTASONE) 10 mg tablet Take 5 tablets (50 mg total) by mouth 1 (one) time each day for 2 days, THEN 4 tablets (40 mg total) 1 (one) time each day for 2 days, THEN 3 tablets (30 mg total) 1 (one) time each day for 2 days, THEN 2 tablets (20 mg total) 1 (one) time each day for 2 days, THEN 1 tablet (10 mg total) 1 (one) time each day for 2 days. See instructions .. 30 each 08/15/2024 08/26/19 25 oxyCODONE (OXY-IR) 5 mg immediate release capsule Take 1 capsule (5 mg total) by mouth every 6 (six) hours if needed for severe pain for up to 3 days. Max Daily Amount: 20 mg 12 capsule 08/15/2024 08/19/19 25 Encounters Date Type Department Care Team Description 08/15/2024 5:05 PM EST - 08/15/2024 11:52 PM EST Emergency [facility] Emergency [address] [place] [address] Wilbur Tellez MD Chronic nonintractable headache, unspecified headache type (Primary Dx) Discharge Disposition: Home or Self Care 07/21/2024 9:37 PM EST - 07/22/2024 3:56 AM EST Emergency [facility] Emergency [address] [place] [id number] Pleurisy (Primary Dx); Viral upper respiratory tract infection; Anterior chest wall pain Discharge Disposition: Home or Self Care from Last 3 Months Surgical History Surgery Date Site/Laterality Comments BACK SURGERY 1999 PROCEDURE: HISTORICAL BACK SURGERY; COMMENT: L5 fusion Dr Issa at [facility] GASTRIC BYPASS PROCEDURE: GASTRIC BYPASS FOR OBESIT; COMMENT: performed one yr ago COLONOSCOPY PROCEDURE: HISTORICAL COLONOSCOPY COLONOSCOPY PROCEDURE: HISTORICAL COLONOSCOPY; COMMENT: Performed on November 28, 2020 HERNIA REPAIR PROCEDURE: MI REPAIR FIRST ABDOMINAL WALL HERNIA Medical History [...] Sign Reading Time Taken Comments Blood Pressure 127/58 08/15/2024 10:41 PM EST Pulse 86 08/15/2024 10:41 PM EST Temperature 36.9 ??C (98.4 ??F) 08/15/2024 10:[address] Respiratory Rate 18 08/15/2024 10:41 PM EST Oxygen Saturation 97% 08/15/2024 10:41 PM EST Inhaled Oxygen Concentration - - Weight 104 kg (230 lb) 08/15/2024 2:15 PM EST Height 167.6 cm (5' 6 ) 08/15/2024 2:15 PM EST Body Mass Index 37.12 08/15/2024 2:15 PM EST Plan of Treatment Health Maintenance [...] history exists Hypertension/CHF/CAD Annual BMP Blood Test 08/15/2025 08/15/2024, 07/21/2024, 05/21/2024, Additional history exists DTaP,Tdap,and Td Vaccines (5 [...] Procedure Name Priority Date/Time Associated Diagnosis Comments XR HIP 2-3 VIEWS RIGHT STAT 08/15/2024 10:[address] HEAD WO CONTRAST STAT 08/15/2024 7 :03 PM EST CBC WITH AUTO DIFFERENTIAL STAT 08/15/2024 2:23 PM EST MAGNESIUM STAT 08/15/2024 2:23 PM EST BASIC METABOLIC PANEL STAT 08/15/2024 2:23 PM EST CBC AND DIFFERENTIAL STAT 08/15/2024 2:23 PM EST LIPASE STAT Add-on 07/21/2024 11:35 PM EST MAGNESIUM STAT 07/21/2024 11:35 PM EST TROPONIN I HIGH SENSITIVITY STAT 07/21/2024 11:35 PM EST COMPREHENSIVE METABOLIC PANEL STAT 07/21/2024 11:[address] ANGIO CHEST WO AND/OR W CONTRAST STAT 07/21/2024 11:26 PM EST Pleurisy [id number], RSV, FLU A AND B QUALITATIVE RT-PCR, INTERNAL LAB STAT 07/21/2024 10:35 PM EST CBC WITH AUTO DIFFERENTIAL STAT 07/21/2024 10:34 PM EST TROPONIN I HIGH SENSITIVITY STAT 07/21/2024 10:34 PM EST CBC AND DIFFERENTIAL STAT 07/21/2024 10:34 PM EST ECG 12-LEAD STAT 07/21/2024 10:22 PM EST ECG ANNOTATED 07/21/2024 ECG OUTSIDE 07/21/2024 GERARDO SCREENING DIGITAL Routine 04/29/2022 1:05 PM EST Encounter for screening mammogram for malignant neoplasm of breast from Last 3 Months or Most Recently Relevant to Health Maintenance Results * XR Hip 2-3 Views Right (08/15/2024 10:36 PM EST) Anatomical Region Laterality Modality Lower Extremities, Hip Right Radiograp hic Imaging 08/16/2024 8:39 AM EST Impressions 08/16/2024 8:39 AM EST No acute findings. -------- FINAL REPORT -------- Dictated By: Tristan Butler Dictated Date: 08/16/2024 08:39 ET Assigned Physician: Tristan Butler Reviewed and Electronically Signed By: Tristan Butler Signed Date: 08/16/2024 08:39 ET Workstation ID: [id number] Transcribed By: Self Edit Transcribed Date: 08/16/2024 08:39 ET Narrative 08/16/2024 8:39 AM EST PROCEDURE: Radiographs of the right hip. HISTORY: pain. COMPARISON: None. FINDINGS: No fracture or malalignment. ??No suspicious bony lesion. ??Mild degenerative changes of the hips, SI joints, and visualized lumbar spine. ??L5-S1 interbody fusion hardware. ??Multiple surgical clips project over the pelvis. ??A stimulator device projects over the left iliac wing. Procedure Note Tristan Butler MD - 08/16/2024 PROCEDURE: Radiographs of the right hip. HISTORY: pain. COMPARISON: None. FINDINGS: No fracture or malalignment. No suspicious bony lesion. Milddegenerative changes of the hips, SI joints, and visualized lumbar spine.L5-S1 interbody fusion hardware. Multiple surgical clips project over thepelvis. A stimulator device projects over the left iliac wing. IMPRESSION: No acute findings. -------- FINAL REPORT -------- Dictated By: Tristan Butler Dictated Date: 08/16/2024 08:39 ET Assigned Physician: Tristan Butler Reviewed and Electronically Signed By: Tristan Butler Signed Date: 08/16/2024 08:39 ET Workstation ID: [id number] Transcribed By: Self Edit Transcribed Date: 08/16/2024 08:39 ET Wilbur Mayank Tellez MD IMG XR PROCEDURES Final Result * CT Head wo Contrast (08/15/2024 7:03 PM EST) Anatomical Region Laterality Modality Head and Neck Computed Tomogra phy 08/15/2024 7:20 PM EST Impressions 08/15/2024 7:20 PM EST 1. No acute intracranial hemorrhage or territorial infarction. If clinical concern persists consider follow-up MRI. 2. Additional findings as described. This document has been electronically signed by: Tristan Hummel MD on 08/15/2024 19:20:38 Narrative 08/15/2024 7:20 PM EST INDICATION: Headache, classic migraine CT head without contrast Comparison: None Findings: Scattered subcortical and periventricular hypoattenuation, likely in keeping with chronic small vessel ischemic disease. Parenchymal volume loss with compensatory prominence of the ventricles and CSF spaces. No acute territorial infarction, intracranial hemorrhage, midline shift or hydrocephalus. Probable lacunar infarcts versus prominent perivascular spaces in the left basal ganglia. Evidence of prior sinonasal surgery. Air-fluid levels in the maxillary sinuses suggesting acute sinusitis, likely acute on chronic. Tortuosity of the optic nerves, nonspecific. Bilateral lens extraction. There is no acute fracture. Procedure Note Tristan Hummel MD - 08/15/2024 INDICATION: Headache, classic migraine CT head without contrast Comparison: None Findings: Scattered subcortical and periventricular hypoattenuation, likely in keeping with chronic small vessel ischemic disease. Parenchymal volume loss with compensatory prominence of the ventricles and CSF spaces. No acute territorial infarction, intracranial hemorrhage, midline shift or hydrocephalus. Probable lacunar infarcts versus prominent perivascular spaces in theleft basal ganglia. Evidence of prior sinonasal surgery. Air-fluid levels in the maxillary sinuses suggesting acute sinusitis, likely acute on chronic. Tortuosity of the optic nerves, nonspecific. Bilateral lens extraction. There is no acute fracture. IMPRESSION: 1. No acute intracranial hemorrhage or territorial infarction. Ifclinical concern persists consider follow-up MRI. 2. Additional findings as described. This document has been electronically signed by: Tristan Hummel MD on 08/15/2024 19:20:38 [facility] Geoff HUMPHREY IMG CT PROCEDURES Final Result * (ABNORMAL) CBC auto differential (08/15/2024 2:23 PM EST) Only the most recent of2 resultswithin the time period is included. WBC 8.5 4.8 - 10.8 K/mcL LAB HEMETOLOGY METHOD 08/15/2024 3:55 PM [facility] RBC 4.00 3.80 - 4.80 M/mcL LAB HEMETOLOGY METHOD 08/15/2024 3:55 PM [facility] Hemoglobin 10.6(L) 11.5 - 16.0 g/dL LAB HEMETOLOGY METHOD 08/15/2024 3:55 PM [facility] Hematocrit 35.1 35.0 - 47.0 % LAB HEMETOLOGY METHOD 08/15/2024 3:55 PM [facility] MCV 88.2 79.0 - 98.0 FL LAB HEMETOLOGY METHOD 08/15/2024 3:55 PM [facility] MCH 26.6(L) 27.0 - 32.0 pcg LAB HEMETOLOGY METHOD 08/15/2024 3:55 PM [facility] MCHC 30.2(L) 32.0 - 37.0 g/dL LAB HEMETOLOGY METHOD 08/15/2024 3:55 PM [facility] RDW 14.8 11.0 - 15.0 % LAB HEMETOLOGY METHOD 08/15/2024 3:55 PM [facility] Platelets 144 130 - 400 K/mcL LAB HEMETOLOGY METHOD 08/15/2024 3:55 PM [facility] MPV 10.9 7.0 - 11.0 FL LAB HEMETOLOGY METHOD 08/15/2024 3:55 PM [facility] NRBC 0.0 <1.0 % LAB HEMETOLOGY METHOD 08/15/2024 3:55 PM [facility] NRBC Absolute 0.00 <0.10 K/mcL LAB HEMETOLOGY METHOD 08/15/2024 3:55 PM [facility] Neutrophils Relative 64.3 % LAB HEMETOLOGY METHOD 08/15/2024 3:55 PM [facility] Lymphocytes Relative 27.6 % LAB HEMETOLOGY METHOD 08/15/2024 3:55 PM [facility] Monocytes Relative 5.0 % LAB HEMETOLOGY METHOD 08/15/2024 3:55 PM [facility] Eosinophils Relative 2.6 % LAB HEMETOLOGY METHOD 08/15/2024 3:55 PM [facility] Basophils Relative 0.1 % LAB HEMETOLOGY METHOD 08/15/2024 3:55 PM [facility] Immature Granulocytes Relative 0.4 % LAB HEMETOLOGY METHOD 08/15/2024 3:55 PM [facility] Neutrophils Absolute 5.46 1.50 - 7.00 K/mcL LAB HEMETOLOGY METHOD 08/15/2024 3:55 PM [facility] Lymphocytes Absolute 2.34 1.00 - 5.00 K/mcL LAB HEMETOLOGY METHOD 08/15/2024 3:55 PM EST [facility] Monocytes Absolute 0.42 0.20 - 1.00 K/[facility] LAB HEMETOLOGY METHOD 08/15/2024 3:55 PM EST [facility] Eosinophils Absolute 0.22 0.00 - 0.50 K/[facility] LAB HEMETOLOGY METHOD 08/15/2024 3:55 PM EST [facility] Basophils Absolute 0.01 0.00 - 0.20 K/[facility] LAB HEMETOLOGY METHOD 08/15/2024 3:55 PM EST [facility] Immature Granulocytes Absolute 0.03 0.00 - 0.03 K/[facility] LAB HEMETOLOGY METHOD 08/15/2024 3:55 PM EST [facility] Blood Venous blood specimen / Unknown Venipuncture / Unknown 08/15/2024 2:23 PM EST 08/15/2024 3:40 PM EST us Vishnu Reed MD LAB BLOOD ORDERABLES Final Resu lt [facility] [address] [place] [address], [place] [phone] * Magnesium (08/15/2024 2:23 PM EST) Only the most recent of2 resultswithin the time period is included. Magnesium 2.4 1.9 - 2.6 mg/dL LAB CHEMISTRY METHOD 08/15/2024 4:23 PM EST [facility] Blood Venous blood specimen / Unknown Venipuncture / Unknown 08/15/2024 2:23 PM EST 08/15/2024 3:40 PM EST us Vishnu Reed MD LAB BLOOD ORDERABLES Final Resu lt [facility] [address] [place] [address], [place] [phone] * (ABNORMAL) Basic metabolic panel (08/15/2024 2:23 PM EST) Sodium 141 133 - 145 mmol/L LAB CHEMISTRY METHOD 08/15/2024 4:23 PM [facility] Potassium 5.1 3.5 - 5.5 mmol/L LAB CHEMISTRY METHOD 08/15/2024 4:23 PM [facility] Chloride 110 96 - 110 mmol/L LAB CHEMISTRY METHOD 08/15/2024 4:23 PM [facility] CO2 24 21 - 32 mmol/L LAB CHEMISTRY METHOD 08/15/2024 4:23 PM [facility] Anion Gap 7 3 - 11 LAB CHEMISTRY METHOD 08/15/2024 4:23 PM [facility] Glucose 71 70 - 100 mg/dL LAB CHEMISTRY METHOD 08/15/2024 4:23 PM [facility] BUN 14 5 - 25 mg/dL LAB CHEMISTRY METHOD 08/15/2024 4:23 PM [facility] Creatinine 0.94 0.50 - 1.10 mg/dL LAB CHEMISTRY METHOD 08/15/2024 4:23 PM [facility] eGFR 71 >=60 mL/min/1. 73m2 LAB CHEMISTRY METHOD 08/15/2024 4:23 PM [facility] Comment:Calculation based on the??Chronic Kidney Disease Epidemiology Collaboration (CKD-EPI) equation refit??without adjustment for race. BUN/Creatinine Ratio 14.9 LAB CHEMISTRY METHOD 08/15/2024 4:23 PM [facility] Calcium 8.2(L) 8.5 - 10.5 mg/dL LAB CHEMISTRY METHOD 08/15/2024 4:23 PM [facility] Blood Venous blood specimen / Unknown Venipuncture / Unknown 08/15/2024 2:23 PM EST 08/15/2024 3:40 PM EST Vishnu Reed MD LAB BLOOD ORDERABLES Final Resu lt Performing Organization Address [facility] Co de Phone Number [facility] [address] [place] [address], [place] [phone] * Troponin I high sensitivity (NOW and then in 1 hour) (07/21/2024 11:35 PM EST) Only the most recent of2 resultswithin the time period is included. [facility] High Sensitivity Troponin I 4 <=54 ng/L [...] Lilia l Result Performing Organization Address [facility] de Phone Number [facility] [address] [place] [address], [place] [phone] * Lipase (07/21/2024 11:35 PM EST) [facility] Lipase 14 13 - 75 unit/L LAB CHEMISTRY METHOD 07/22/2024 1:17 AM EST [facility] Blood Venous blood specimen / Unknown Venipuncture / Unknown 07/21/2024 11:35 PM EST 07/22/2024 12:00 AM EST [facility] LAB BLOOD ORDERABLES Final Resul t Performing Organization Address [facility] Co de Phone Number [facility] [address] [place] [address], [place] [phone] * (ABNORMAL) Comprehensive metabolic panel (07/21/2024 11:35 PM EST) Sodium 135 133 - 145 mmol/L LAB CHEMISTRY METHOD 07/22/2024 12:38 AM [facility] Potassium 4.1 3.5 - 5.5 mmol/L LAB CHEMISTRY METHOD 07/22/2024 12:38 AM [facility] Chloride 105 96 - 110 mmol/L LAB CHEMISTRY METHOD 07/22/2024 12:38 AM [facility] CO2 24 21 - 32 mmol/L LAB CHEMISTRY METHOD 07/22/2024 12:38 AM [facility] Anion Gap 6 3 - 11 LAB CHEMISTRY METHOD 07/22/2024 12:38 AM [facility] Glucose 81 70 - 100 mg/dL LAB CHEMISTRY METHOD 07/22/2024 12:38 AM [facility] BUN 17 5 - 25 mg/dL LAB CHEMISTRY METHOD 07/22/2024 12:38 AM [facility] Creatinine 0.76 0.50 - 1.10 mg/dL LAB CHEMISTRY METHOD 07/22/2024 12:38 AM [facility] eGFR 92 >=60 mL/min/1. 73m2 LAB CHEMISTRY METHOD 07/22/2024 12:38 AM [facility] Comment:Calculation based on the??Chronic Kidney Disease Epidemiology Collaboration (CKD-EPI) equation refit??without adjustment for race. BUN/Creatinine Ratio 22.4 LAB CHEMISTRY METHOD 07/22/2024 12:38 AM [facility] Calcium 7.6(L) 8.5 - 10.5 mg/dL LAB CHEMISTRY METHOD 07/22/2024 12:38 AM [facility] AST (SGOT) 20 10 - 42 unit/L LAB CHEMISTRY METHOD 07/22/2024 12:38 AM [facility] ALT (SGPT) 41 10 - 60 unit/L LAB CHEMISTRY METHOD 07/22/2024 12:38 AM EST [facility] Alkaline Phosphatase 187(H) 42 - 121 unit/L LAB CHEMISTRY METHOD 07/22/2024 12:38 AM EST [facility] Total Protein 5.5(L) 6.0 - 8.0 g/dL LAB CHEMISTRY METHOD 07/22/2024 12:38 AM EST [facility] Albumin 2.5(L) 3.2 - 5.0 g/dL LAB CHEMISTRY METHOD 07/22/2024 12:38 AM EST [facility] Total Bilirubin 0.1 0.0 - 1.4 mg/dL LAB CHEMISTRY METHOD 07/22/2024 12:38 AM EST [facility] Blood Venous blood specimen / Unknown Venipuncture / Unknown 07/21/2024 11:35 PM EST 07/22/2024 12:00 AM EST us Tara Raya Francis DO LAB BLOOD ORDERABLES Lilia l Result [facility] [address] [place] [address], [place] [phone] * CT Angio Chest wo and/or w [...] Lr MD on 07/22/2024 00:18:04 [facility] [place] PROCEDURES Final Result * [id number], RSV, Influenza A and B qualitative RT-PCR (07/21/2024 10:35 PM EST) Influenza A PCR Not Detected Not Detected LAB MICROBIOLOGY METHOD 07/21/2024 11:33 PM EST [facility] Influenza B PCR Not Detected Not Detected LAB MICROBIOLOGY METHOD 07/21/2024 11:33 PM [facility] RSV PCR Not Detected Not Detected LAB MICROBIOLOGY METHOD 07/21/2024 11:33 PM EST [facility] SARS COV-2 Not Detected Not Detected LAB MICROBIOLOGY METHOD 07/21/2024 11:33 PM EST [facility] Swab Both anterior nares / Unknown Non-blood Collection / Unknown 07/21/2024 10:35 PM EST 07/21/2024 10:50 PM EST Narrative [facility] - 07/21/2024 11:33 PM EST Disclaimer: ??Testing was performed using the [employer] GeneXpert Xpress SARS-CoV-2 _Flu_RSV PLUS PCR assay. [...] for Healthcare providers can be found at https://www.fda.gov/media/142403/download. ?? Fact sheet for Healthcare patients can be found at https://www.fda.gov/media/312950/download. [facility] MICROBIOLOGY - GENERAL ORDER ANA Final Result [facility] [address] [place] [address], * ECG 12 lead (07/21/2024 10:22 PM EST) Ventricular Rate ECG 94 BPM GEMUSE Atrial Rate 94 BPM GEMUSE P-R Interval 110 ms GEMUSE QRS Duration 76 ms GEMUSE Q-T Interval 350 ms GEMUSE QTc 437 ms GEMUSE P Wave [place] 53 degrees GEMUSE R [place] -6 degrees GEMUSE T [place] 22 degrees GEMUSE ECG Interpretation Sinus rhythm Normal ECG When compared with ECG of 21-MAY-2024 18:20, No significant change was found Confirmed by Winifred WILLS YUFENG ([id number]) on 07/22/2024 10:29:45 AM GEMUSE 07/21/2024 10:2 2 PM EST 07/22/2024 10:29 AM EST us Tara Francis DO ECG ORDERABLES Final Res ult GEMUSE * ECG-Outside (07/21/2024) us Provider Onbase MD ECG ORDERABLES Final Result * ECG-Annotated (07/21/2024) us Provider Onbase MD ECG ORDERABLES Final Result * GERARDO SCREENING DIGITAL (04/29/2022 1:05 PM EST) Anatomical Region Laterality Modality Mammography 04/29/2022 11:0 5 AM EST Narrative 04/29/2022 1:05 PM EST [facility] Diagnostic Imaging Department [address] [place], [place] [id number] Patient: ??RAFAL WARE ?/Age/Sex: 1965 - 56 - F Unit#: ??[id number] ? Location/Status: ??SPDIMAM/REG CLI ? Mnemonic/Ordering Site: ??DIGSC/SPMAM Ordering Physician: ??CARRI NUNEZ MD Gerardo Screening Digital - 04/29/22 - 1138 INDICATION: SCREENING COMPARISON: [facility] mammograms dating back to ?? 11/22/2014 TECHNIQUE: CC and MLO views of the breasts were obtained, using full field digital mammography with 3D tomosynthesis views in the MLO projection. Computer aided detection with the [employer] was employed. FINDINGS: The breasts contain heterogeneously [...] date for the next mammogram. ([id number] / [id number]) , ??[id number] Dictating Physician: ??AMAN LENNON MD Electronically Signed by: ??AMAN LENNON MD Dic Date/Time: ??04/29/22 1302 Sign date/Time: ??04/29/22 1305 Procedure Note Aman Lennon MD - 07/16/2023 [facility] Diagnostic Imaging Department [address] [place] [address] Patient: RAFAL WARE /Age/Sex: 1965 - 56 - F Unit#: [id number] Location/Status: SPDIMAM/REG CLI Mnemonic/Ordering Site: [facility] Ordering Physician: CARRI NUNEZ MD Gerardo Screening Digital - 04/29/22 - 1138 INDICATION: SCREENING COMPARISON: [facility] mammograms dating back to 11/22/2014 TECHNIQUE: CC and MLO views of the breasts were obtained, using full field digital mammography with 3D tomosynthesis views in the MLO projection. Computer aided detection with the [employer] 7.2-H was employed. FINDINGS: The breasts contain [...] a target date for the next mammogram. 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
[2024-09-12] MEDS: iohexoL 350 MG/ML 100 ML INFUS..BTL IV (10:40)
[2024-09-12] MEDS: Barium Sulfate Oral (Berry) 450 ML ORAL.SUSP 900 ML PO (10:41)
[2024-09-13 13:49] LABS: GFR POC > 60
== END 2024-09-12 07:55 | disposition home or self-care (01) ==
LOC: HO.CT 07:54
PROVIDERS: PCP Internal Medicine; Visit Provider Nurse Practitioner Family
DX: R10.9 Unspecified abdominal pain (principal)
CPT/HCPCS: 74177; 82565; Q9967

== ENCOUNTER → 2024-09-12 07:55 | Outpatient (BNV) | payer MEDICAID, SELFPAY | PROVIDERS: PCP Internal Medicine; Visit Provider Radiology Diagnostic Radiology | DX: R10.9 Unspecified abdominal pain (principal) | CPT/HCPCS: 74177 ==

== ENCOUNTER → 2024-09-13 09:46 | Outpatient (BNVA) | payer MEDICAID, SELFPAY | PROVIDERS: PCP Internal Medicine; Visit Provider Orthopaedic Surgery | DX: M65.949 Unspecified synovitis and tenosynovitis, unspecified hand (principal) | CPT/HCPCS: 20550; 99212; J1100; J2003 ==

== ENCOUNTER 2024-09-13 10:25 | Outpatient (REF) | payer MEDICAID, SELFPAY ==
--- OUTSIDE RECORDS SUMMARY | 2024-09-13 12:13 | XMS_ITS | Clinical Summary ---
Author Organization [facility] Address [address] [place] [address] Phone Care Team Providers Care Shop Clerk Name Role Phone Carri Nunez MD Primary Care Provider [phone] Allergies Active Allergy Reactions Criticality Noted Date [...] EST - 08/15/2024 11:52 PM EST Emergency [facility] Emergency [address] [place] [address] Wilbur Tellez MD Chronic nonintractable headache, unspecified headache type (Primary Dx) Discharge Disposition: Home or Self Care 07/21/2024 9:37 PM EST - 07/22/2024 3:56 AM EST Emergency [facility] Emergency [address] [place] [id number] Pleurisy (Primary Dx); Viral upper respiratory tract infection; Anterior chest wall pain Discharge Disposition: Home or Self Care from Last 3 Months Surgical History Surgery Date Site/Laterality Comments BACK SURGERY 1999 PROCEDURE: HISTORICAL BACK SURGERY; COMMENT: L5 fusion Dr Issa at [facility] GASTRIC BYPASS PROCEDURE: GASTRIC BYPASS FOR OBESIT; COMMENT: performed one yr ago COLONOSCOPY PROCEDURE: HISTORICAL COLONOSCOPY COLONOSCOPY PROCEDURE: HISTORICAL COLONOSCOPY; COMMENT: Performed on November 28, 2020 HERNIA REPAIR PROCEDURE: CT REPAIR FIRST ABDOMINAL WALL HERNIA Medical History [...] CONTRAST STAT 07/21/2024 11:26 PM EST Pleurisy [id number], RSV, FLU A AND B QUALITATIVE RT-PCR, [...] Signed Date: 08/16/2024 08:39 ET Workstation ID: [id number] Transcribed By: Self Edit Transcribed Date: 08/16/2024 [...] Signed Date: 08/16/2024 08:39 ET Workstation ID: [id number] Transcribed By: Self Edit Transcribed Date: 08/16/2024 [...] There is no acute fracture. Procedure Note Tristna Hummel MD - 08/15/2024 INDICATION: Headache, classic [...] by: Tristan Hummel MD on 08/15/2024 19:20:38 [facility] Geoff HUMPHREY IMG CT PROCEDURES Final Result * (ABNORMAL) CBC auto differential (08/15/2024 2:23 PM EST) Only the most recent of2 resultswithin the time period is included. WBC 8.5 4.8 - 10.8 K/mcL LAB HEMETOLOGY METHOD 08/15/2024 3:55 PM [facility] RBC 4.00 3.80 - 4.80 M/mcL LAB HEMETOLOGY METHOD 08/15/2024 3:55 PM [facility] Hemoglobin 10.6(L) 11.5 - 16.0 g/dL LAB HEMETOLOGY METHOD 08/15/2024 3:55 PM [facility] Hematocrit 35.1 35.0 - 47.0 % LAB HEMETOLOGY METHOD 08/15/2024 3:55 PM [facility] MCV 88.2 79.0 - 98.0 FL LAB HEMETOLOGY METHOD 08/15/2024 3:55 PM [facility] MCH 26.6(L) 27.0 - 32.0 pcg LAB HEMETOLOGY METHOD 08/15/2024 3:55 PM [facility] MCHC 30.2(L) 32.0 - 37.0 g/dL LAB HEMETOLOGY METHOD 08/15/2024 3:55 PM [facility] RDW 14.8 11.0 - 15.0 % LAB HEMETOLOGY METHOD 08/15/2024 3:55 PM [facility] Platelets 144 130 - 400 K/mcL LAB HEMETOLOGY METHOD 08/15/2024 3:55 PM [facility] MPV 10.9 7.0 - 11.0 FL LAB HEMETOLOGY METHOD 08/15/2024 3:55 PM [facility] NRBC 0.0 <1.0 % LAB HEMETOLOGY METHOD 08/15/2024 3:55 PM [facility] NRBC Absolute 0.00 <0.10 K/mcL LAB HEMETOLOGY METHOD 08/15/2024 3:55 PM [facility] Neutrophils Relative 64.3 % LAB HEMETOLOGY METHOD 08/15/2024 3:55 PM [facility] Lymphocytes Relative 27.6 % LAB HEMETOLOGY METHOD 08/15/2024 3:55 PM [facility] Monocytes Relative 5.0 % LAB HEMETOLOGY METHOD 08/15/2024 3:55 PM [facility] Eosinophils Relative 2.6 % LAB HEMETOLOGY METHOD 08/15/2024 3:55 PM [facility] Basophils Relative 0.1 % LAB HEMETOLOGY METHOD 08/15/2024 3:55 PM [facility] Immature Granulocytes Relative 0.4 % LAB HEMETOLOGY METHOD 08/15/2024 3:55 PM [facility] Neutrophils Absolute 5.46 1.50 - 7.00 K/mcL LAB HEMETOLOGY METHOD 08/15/2024 3:55 PM [facility] Lymphocytes Absolute 2.34 1.00 - 5.00 K/mcL LAB HEMETOLOGY METHOD 08/15/2024 3:55 PM EST [facility] Monocytes Absolute 0.42 0.20 - 1.00 K/[facility] LAB HEMETOLOGY METHOD 08/15/2024 3:55 PM EST [facility] Eosinophils Absolute 0.22 0.00 - 0.50 [facility] LAB HEMETOLOGY METHOD 08/15/2024 3:55 PM EST [facility] Basophils Absolute 0.01 0.00 - 0.20 [facility] LAB HEMETOLOGY METHOD 08/15/2024 3:55 PM EST [facility] Immature Granulocytes Absolute 0.03 0.00 - 0.03 [facility] LAB HEMETOLOGY METHOD 08/15/2024 3:55 PM EST [facility] Blood Venous blood specimen / Unknown Venipuncture / Unknown 08/15/2024 2:23 PM EST 08/15/2024 3:40 PM EST us Vishnu Reed MD LAB BLOOD ORDERABLES Final Resu lt [facility] [address] [place] [address], [place] [phone] * Magnesium (08/15/2024 2:23 PM EST) Only the most recent of2 resultswithin the time period is included. Magnesium 2.4 1.9 - 2.6 mg/dL LAB CHEMISTRY METHOD 08/15/2024 4:23 PM EST [facility] Blood Venous blood specimen / Unknown Venipuncture / Unknown 08/15/2024 2:23 PM EST 08/15/2024 3:40 PM EST us Vishnu Reed MD LAB BLOOD ORDERABLES Final Resu lt [facility] [address] [place] [address], [place] [phone] * (ABNORMAL) Basic metabolic panel (08/15/2024 2:23 PM EST) Sodium 141 133 - 145 mmol/L LAB CHEMISTRY METHOD 08/15/2024 4:23 PM [facility] Potassium 5.1 3.5 - 5.5 mmol/L LAB CHEMISTRY METHOD 08/15/2024 4:23 PM [facility] Chloride 110 96 - 110 mmol/L LAB CHEMISTRY METHOD 08/15/2024 4:23 PM [facility] CO2 24 21 - 32 mmol/L LAB CHEMISTRY METHOD 08/15/2024 4:23 PM [facility] Anion Gap 7 3 - 11 LAB CHEMISTRY METHOD 08/15/2024 4:23 PM [facility] Glucose 71 70 - 100 mg/dL LAB CHEMISTRY METHOD 08/15/2024 4:23 PM [facility] BUN 14 5 - 25 mg/dL LAB CHEMISTRY METHOD 08/15/2024 4:23 PM [facility] Creatinine 0.94 0.50 - 1.10 mg/dL LAB CHEMISTRY METHOD 08/15/2024 4:23 PM [facility] eGFR 71 >=60 mL/min/1. 73m2 LAB CHEMISTRY METHOD 08/15/2024 4:23 PM [facility] Comment:Calculation based on the??Chronic Kidney Disease Epidemiology Collaboration (CKD-EPI) equation refit??without adjustment for race. BUN/Creatinine Ratio 14.9 LAB CHEMISTRY METHOD 08/15/2024 4:23 PM [facility] Calcium 8.2(L) 8.5 - 10.5 mg/dL LAB CHEMISTRY METHOD 08/15/2024 4:23 PM [facility] Blood Venous blood specimen / Unknown Venipuncture / Unknown 08/15/2024 2:23 PM EST 08/15/2024 3:40 PM EST Vishnu Reed MD LAB BLOOD ORDERABLES Final Resu lt Performing Organization Address [facility] Co de Phone Number [facility] [address] [place] [address], [place] [phone] * Troponin I high sensitivity (NOW and then in 1 hour) (07/21/2024 11:35 PM EST) Only the most recent of2 resultswithin the time period is included. [facility] High Sensitivity Troponin I 4 <=54 ng/L LAB CHEMISTRY METHOD 07/22/2024 12:34 AM EST [facility] Blood Venous blood specimen / Unknown Venipuncture / Unknown 07/21/2024 11:35 PM EST 07/22/2024 12:00 AM EST Narrative [facility] - 07/22/2024 12:34 AM EST High levels of biotin in samples may falsely decrease hsTroponin values. ??Use caution when interpreting hsTroponin results in patients taking biotin who exhibit renal impairment (eGFR <60) or in patients taking more than 20 mg/day of biotin. Tara Francis DO LAB BLOOD ORDERABLES Lilia l Result Performing Organization Address [facility] de Phone Number [facility] [address] [place] [address], [place] [phone] * Lipase (07/21/2024 11:35 PM EST) [facility] Lipase 14 13 - 75 unit/L LAB CHEMISTRY METHOD 07/22/2024 1:17 AM EST [facility] Blood Venous blood specimen / Unknown Venipuncture / Unknown 07/21/2024 11:35 PM EST 07/22/2024 12:00 AM EST Celso ARGUELLES LAB BLOOD ORDERABLES Final Resul t Performing Organization Address [facility] Co de Phone Number [facility] [address] [place] [address], [place] [phone] * (ABNORMAL) Comprehensive metabolic panel (07/21/2024 11:35 PM EST) Sodium 135 133 - 145 mmol/L LAB CHEMISTRY METHOD 07/22/2024 12:38 AM [facility] Potassium 4.1 3.5 - 5.5 mmol/L LAB CHEMISTRY METHOD 07/22/2024 12:38 AM [facility] Chloride 105 96 - 110 mmol/L LAB CHEMISTRY METHOD 07/22/2024 12:38 AM [facility] CO2 24 21 - 32 mmol/L LAB CHEMISTRY METHOD 07/22/2024 12:38 AM [facility] Anion Gap 6 3 - 11 LAB CHEMISTRY METHOD 07/22/2024 12:38 AM [facility] Glucose 81 70 - 100 mg/dL LAB CHEMISTRY METHOD 07/22/2024 12:38 AM [facility] BUN 17 5 - 25 mg/dL LAB CHEMISTRY METHOD 07/22/2024 12:38 AM [facility] Creatinine 0.76 0.50 - 1.10 mg/dL LAB CHEMISTRY METHOD 07/22/2024 12:38 AM [facility] eGFR 92 >=60 mL/min/1. 73m2 LAB CHEMISTRY METHOD 07/22/2024 12:38 AM [facility] Comment:Calculation based on the??Chronic Kidney Disease Epidemiology Collaboration (CKD-EPI) equation refit??without adjustment for race. BUN/Creatinine Ratio 22.4 LAB CHEMISTRY METHOD 07/22/2024 12:38 AM [facility] Calcium 7.6(L) 8.5 - 10.5 mg/dL LAB CHEMISTRY METHOD 07/22/2024 12:38 AM [facility] AST (SGOT) 20 10 - 42 unit/L LAB CHEMISTRY METHOD 07/22/2024 12:38 AM [facility] ALT (SGPT) 41 10 - 60 unit/L LAB CHEMISTRY METHOD 07/22/2024 12:38 AM EST [facility] Alkaline Phosphatase 187(H) 42 - 121 unit/L LAB CHEMISTRY METHOD 07/22/2024 12:38 AM EST [facility] Total Protein 5.5(L) 6.0 - 8.0 g/dL LAB CHEMISTRY METHOD 07/22/2024 12:38 AM EST [facility] Albumin 2.5(L) 3.2 - 5.0 g/dL LAB CHEMISTRY METHOD 07/22/2024 12:38 AM EST [facility] Total Bilirubin 0.1 0.0 - 1.4 mg/dL LAB CHEMISTRY METHOD 07/22/2024 12:38 AM EST [facility] Blood Venous blood specimen / Unknown Venipuncture / Unknown 07/21/2024 11:35 PM EST 07/22/2024 12:00 AM EST us Tara Raya Francis DO LAB BLOOD ORDERABLES Lilia l Result [facility] [address] [place] [address], [place] [phone] * CT Angio Chest wo and/or w [...] Lr MD on 07/22/2024 00:18:04 Cel[facility] ARGUELLES [facility] CT PROCEDURES Final Result * [id number], RSV, Influenza A and B qualitative RT-PCR (07/21/2024 10:35 PM EST) Influenza A PCR Not Detected Not Detected LAB MICROBIOLOGY METHOD 07/21/2024 11:33 PM EST [facility] Influenza B PCR Not Detected Not Detected LAB MICROBIOLOGY METHOD 07/21/2024 11:33 PM [facility] RSV PCR Not Detected Not Detected LAB MICROBIOLOGY METHOD 07/21/2024 11:33 PM EST [facility] SARS COV-2 Not Detected Not Detected LAB MICROBIOLOGY METHOD 07/21/2024 11:33 PM EST [facility] Swab Both anterior nares / Unknown Non-blood Collection / Unknown 07/21/2024 10:35 PM EST 07/21/2024 10:50 PM EST Narrative [facility] - 07/21/2024 11:33 PM EST Disclaimer: ??Testing was performed using the [employer] GeneXpert Xpress SARS-CoV-2 _Flu_RSV PLUS PCR assay. [...] for Healthcare providers can be found at https://www.fda.gov/media/923428/download. ?? Fact sheet for Healthcare patients can be found at https://www.fda.gov/media/216241/download. [facility] ARGUELL[facility] MICROBIOLOGY - GENERAL ORDER ANA Final Result [facility] [address] [place] [address], * ECG 12 lead (07/21/2024 10:22 PM EST) Ventricular Rate ECG 94 BPM GEMUSE Atrial Rate 94 BPM GEMUSE P-R Interval 110 ms GEMUSE QRS Duration 76 ms GEMUSE Q-T Interval 350 ms GEMUSE QTc 437 ms GEMUSE P [place] 53 degrees GEMUSE R Manor -6 degrees GEMUSE T [place] 22 degrees GEMUSE ECG Interpretation Sinus rhythm [...] AM EST Narrative 04/29/2022 1:[address] [facility] Diagnostic Imaging Department [address] [place], [place] [id number] Patient: ??RAFAL WARE ?/Age/Sex: 1965 - 56 - F Unit#: ??[id number] ? Location/Status: ??SPDIMAM/REG CLI ? Mnemonic/Ordering Site: ??DIGSC/SPMAM Ordering Physician: ??CARRI NUNEZ MD Gerardo Screening Digital - 04/29/22 - 1138 INDICATION: SCREENING COMPARISON: [facility] mammograms dating back to ?? 11/22/2014 TECHNIQUE: CC and MLO views of the breasts were obtained, using full field digital mammography with 3D tomosynthesis views in the MLO projection. Computer aided detection with the [employer] was employed. FINDINGS: The breasts contain heterogeneously [...] date for the next mammogram. ([id number] / [id number]) , ??[id number] Dictating Physician: ??AMAN LENNON MD Electronically Signed by: ??AMAN LENNON MD Dic Date/Time: ??04/29/22 1302 Sign date/Time: ??04/29/22 1305 Procedure Note Aman Lennon MD - 07/16/2023 [facility] Diagnostic Imaging Department [address] [place] [address] Patient: RAFAL WARE /Age/Sex: 1965 - 56 - F Unit#: [id number] Location/Status: SPDIMAM/REG CLI Mnemonic/Ordering Site: [facility] Ordering Physician: CARRI NUNEZ MD Gerardo Screening Digital - 04/29/22 - 1138 INDICATION: SCREENING COMPARISON: [facility] mammograms dating back to 11/22/2014 TECHNIQUE: CC and MLO views of the breasts were obtained, using full field digital mammography with 3D tomosynthesis views in the MLO projection. Computer aided detection with the [employer] 7.2-H was employed. FINDINGS: The breasts contain [...] a target date for the next mammogram. 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
[2024-09-13 13:41] LABS: Estimated Average Glucose 100 mg/dL; Hemoglobin A1C 100.1874 umol/L; Hemoglobin A1c % 5.1 % (<6.0)
[2024-09-13 13:58] LABS: Ferritin 118 ng/mL (10-250); Thyroid Stimulating Hormone 0.83 uIU/mL (0.32-4.0)
[2024-09-13 14:03] LABS: Alanine Aminotransferase 56 U/L (0-31); Albumin Level 3.7 g/dL (3.5-5.0); Alkaline Phosphatase 200 U/L (39-117); Anion Gap 9 (12-20); Aspartate Amino Transferase 22 U/L (5-31); Bilirubin Total 0.2 mg/dL (0.0-1.0); Blood Urea Nitrogen 17 mg/dL (9-16); Calcium 8.2 mg/dL (8.4-10.2); Carbon Dioxide 27 mmol/L (22-29); Chloride 108 mmol/L (96-108); Cholesterol 208 mg/dL (<200); Estimated Glomerular Filt Rate > 60; Glucose Random 57 mg/dL (60-115); HDL Cholesterol 80 mg/dL (>40); LDL Cholesterol Calculated 92 mg/dL (<100); Sodium 140 mmol/L (135-145); Total Protein 6.5 g/dL (6.5-8.0); Triglycerides 184 mg/dL (<150)
[2024-09-13 14:18] LABS: Folate 12.5 ng/mL (> or = 4.0); Vitamin B12 407 pg/mL (200-900)
[2024-09-13 14:50] LABS: Creatinine Urine 26.88 mg/dL; Microalbumin Urine < 5.0 mg/L
== END 2024-09-13 10:26 | disposition home or self-care (01) ==
LOC: HO.10HDL 10:25
PROVIDERS: Referring Provider Physician Assistant; Visit Provider Internal Medicine
DX: D64.9 Anemia, unspecified (principal); E11.9 Type 2 diabetes mellitus without complications; M25.572 Pain in left ankle and joints of left foot; R10.13 Epigastric pain; R60.0 Localized edema; R63.5 Abnormal weight gain
CPT/HCPCS: 36415; 80053; 80061; 82043; 82570; 82607; 82728; 82746; 83036; 84443

== ENCOUNTER 2024-10-10 11:23 | Outpatient (RCR) | payer MEDICAID, SELFPAY ==
--- NOTE | 2024-08-17 16:44 | MHC.OT.OEV ---
[address] [phone] F: [phone] Occupational Therapy Evaluation Patient Name: Olga Harrison Diagnosis: (L) De Quervain's release Date of Onset: Date of Surgery: 06/08/24 Attending Provider: Inessa Lua Prescribed Treatment: Follow Up Appointment: History of Current Condition: Patient is a 59 year old (R)hand dominate female with significant PMHX of but not limited to CVA, PR, CKD and DM who s/p 11 weeks De Quervain's release with c/o pain. She reports the pain is an aching and shooting pain that comes and goes. She states it is an 8/10 constantly and has numbness/tingling. She reports her PLOF as mod (A) ADLs/ IADLS, is on disability and lives alone with her cat. 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 SHEET METAL WORKER HELPER completes laundry, grocery shopping, cleaning, cooking. She is (I)light meal prep. She reports that she has no hobbies but she plays with her cat. Significant Medical History: CVA Cervicalgia Chronic migraine without aura, intractable, without status migrainosus History of low back pain Hx of myocardial infarction (~11/2022) Hx of migraines CKD (chronic kidney disease) History of blood transfusion (~04/2023) Weakness of both legs History of seizures Major depressive disorder, recurrent Internal hernia Excess skin of upper extremity Lipoma History of lipoma Sleep apnea with use of continuous positive airway pressure (CPAP) Hypercholesterolemia Type 2 diabetes mellitus Anemia Lymphedema Migraines Anxiety Back pain Arthritis Carpal tunnel syndrome Body mass index (BMI) of 32.0-32.9 in adult Obesity (BMI 30-39.9) Intestinal malabsorption following gastrectomy H/O nephrolithotomy with removal of calculi Precautions/Contraindications: NO ULTRASOUND Patient Goals: Hand Dominance: Right Observations: QuickDASH Score: 95.5 Prior Level of Function and Occupation Self Care, Employment, Leisure: On disability mod (A) ADLs/IADLs plays with cat Living Situation, Family and/or Social Support: 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 Current Level of Function and Occupation Self Care, Employment, Leisure: max (A) ADLs Sleep: Wakes due to pain Driving: Does not drive Vision: Balance: Pain Assessment Pain Score: 8 Pain Scale Used: Numeric (0 - 10) Pain Location and Description: 8/10 pain (L)wrist Aggravating Factors: Alleviating Factors: Tylenol, trialed heat and cold packs Skin and Soft Tissue Assessment Skin and Soft Tissue: Swelling Comments: Scar is soft mild edema preset Nerve assessment Ulnar Nerve: Median Nerve: Radial Nerve: Comments: Sensory Assessment Temperature: Light Touch: Proprioception: Vibration: Comments: Edema Assessment Upper Extremity: Left Impaired Lower Extremity: Comments: Dexterity Assessment Dexterity: Comments: Can perform finger opposition Special Tests Comments: AROM(PROM) Strength Cervical Cervical Flexion: Cervical Extension: Cervical Lateral Flexion: Cervical Rotation: Comments: Shoulder Flexion: Extension: Abduction: Internal Rotation: External Rotation: Comments: WFL Flexion: Extension: Abduction: Internal Rotation: External Rotation: Comments: Elbow Flexion: Extension: Pronation: Supination: Comments: WFL Flexion: Extension: Pronation: Supination: Comments: Wrist Flexion: 48* Extension: 45* Ulnar Deviation: 5 Radial Deviation: 14 Comments: Flexion: Extension: Ulnar Deviation: Radial Deviation: Comments: Thumb Thumb CMC Flexion: 40* Thumb MCP Flexion: 23* Thumb IP Flexion: 57* Radial Abduction: Palmar Abduction: WFL [place] (Kapandji 0-10): Comments: can make a composite fist Digits Index MCP: PIP: DIP: Long MCP: PIP: DIP: Ring MCP: PIP: DIP: Small MCP: PIP: DIP: Comments: WFL Gross Grasp: (L)0lbs Lateral Pinch: 0 Two-Point Pinch: 0 Three-Jaw Raad: 4 Comments: Submaximal effort used for allergist/immunologist physician Patient Education Primary Language: Niuean Blind Eyeletter Required: No Current Knowledge: Understands information with skills for self-management Teaching Method: Verbal Education Needs Identified on Evaluation: ADL's Pain How did patient/family demonstrate learning? Patient demonstrates Barriers to Learning: None Readiness for Learning: Accepting Who was educated? Patient Comments: Plan of Care Assessment: Based on initial OT evaluation patient presents with impaired ROM, impaired strength, edema, pain and impaired performance during self care tasks. Quick DASH score= 95.5% indicating patient's overall perceived impairment of UE during self care tasks. Due to the documented impairments patient's CLOF is max (A) self care tasks. It is recommended that patient receive skilled OT intervention in order for patient to achieve her maximal potential and enhance patient's quality of life. Thank you for your referral. STG Duration: 2 weeks Short Term Goals: Patient will report decreased pain to 6/10 Patient will increase wrist extension by 10* Patient will increase allergist/immunologist physician strength to 11lbs. Patient will be (I) with scar massage techniques LTG Duration: 4 weeks Custodial Goals: Patient will be (I) with HEP Patient will report 0/10 pain Patient will achieve at least a 50% on the Quick DASH indicating overall UE improvement Frequency and Duration: The patient will be seen 2x a week for 4 weeks Treatment Plan: Therapeutic Exercise Therapeutic Activity Home Exercise Program Splinting Patient Education ADL Training Ultrasound NMES Iontophoresis Paraffin Fluidotherapy MHP Cold Packs Joint Mobilization Soft Tissue Mobilization Kinesiotaping Other (see comments) Skilled OT eval and treat Electronically Signed By: ENMANUEL Cabral/Hal, CLT Reviewed/agree with student documentation: Therapist: Please sign and return to therapist, Thank you for your referral.
--- NOTE | 2024-09-21 13:05 | MHC.OT.OP ---
[address] [phone] F: [phone] Occupational Therapy Progress Note Patient Name: Olga Harrison Diagnosis: (L) De Quervain's release Date of Surgery: 06/08/24 Date of Evaluation: 08/15/24 Treatments to Date: 9 Cancellations to Date: No Shows to Date: Subjective: It's feeling so much better. Pain Score: 4 Pain Location: (L)wrist Objective Measures: Feather Separator strength= 14lbs ROM wrist extension= 54* Quick DASH= 27.3% Status: Progressing Assessment: Patient was seen for skilled OT, at this time patient is making consistent progress towards her goals as she has increased her wrist extension, reports her pain as a 4/10 and achieved a 27.3% on the Quick DASH indicating overall improvement of the UE during ADL performance, patient will receive 2 more visit to address strength and will then be d/c'd from therapy. 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 -GOAL MET (14lbs.) Patient will be (I) with scar massage techniques - MET Longterm Goals: Patient will be (I) with HEP - MET Patient will report 0/10 pain - PROGRESSING (4/10) Patient will achieve at least a 50% on the Quick DASH indicating overall UE improvement = 27.3% Frequency and Duration: The patient will be seen 1x a week for 2 weeks Treatment Plan: Therapeutic Exercise Therapeutic Activity Home Exercise Program Splinting Patient Education Desensitization/Sensory Re-ed ADL Training Ultrasound NMES Iontophoresis Paraffin Fluidotherapy MHP Cold Packs Joint Mobilization Soft Tissue Mobilization Kinesiotaping Other (see comments) Skilled OT eval and treat Electronically Signed By: ENMANUEL Cabral/Hal, CLT Reviewed/agree with student documentation: Therapist:
== END 2025-04-30 12:41 | disposition home or self-care (01) ==
LOC: HO.OT 11:23
PROVIDERS: PCP Internal Medicine; Visit Provider Orthopaedic Surgery
DX: M79.672 Pain in left foot (principal); M65.4 Radial styloid tenosynovitis [de Quervain]
CPT/HCPCS: 97110; 97140; 97165; 97535

== ENCOUNTER 2024-11-21 12:21 | Outpatient (AMB) | payer MEDICAID, SELFPAY ==
--- NOTE | 2024-11-21 12:50 | A.OFFVIS_ITS ---
Intake Visit Reasons: Botox Intake Note: Patient presents for botox injection. practice supplied Allergies amoxicillin Allergy (Severe, Verified 11/21/24 12:53) yeast infection, itching gabapentin Allergy (Severe, Verified 11/21/24 12:53) Swelling meloxicam Allergy (Severe, Verified 11/21/24 12:53) Swelling baclofen Allergy (Intermediate, Verified 11/21/24 12:53) Swelling, sob lamotrigine Allergy (Unknown, Verified 11/21/24 12:53) Swelling Medication List - Last Reconciled 11/21/24 by Yas Adam MD blood pressure monitor Check BP bid and prn lightheadedness celecoxib 200 mg PO DAILY cetirizine (All Day Allergy (cetirizine)) 10 mg PO DAILY PRN cholecalciferol (vitamin D3) (Vitamin D3) 125 mcg PO DAILY 90 days colchicine (Colcrys) 0.6 mg PO ONCE cyanocobalamin (vitamin B-12) 200 mcg PO DAILY cyclobenzaprine 10 mg PO BID dicyclomine 10 mg PO DAILY docusate sodium (Colace) 100 mg PO DAILY escitalopram oxalate 5 mg PO DAILY furosemide mg PO DAILY levetiracetam 500 mg PO BID linaclotide (Linzess) 290 mcg PO QAM lurasidone 120 mg PO DAILY nortriptyline 25 mg PO BID pantoprazole 40 mg PO DAILY 90 days polyethylene glycol 3350 (Miralax) 17 grams PO DAILY polyethylene glycol 3350 grams PO DAILY riboflavin (vitamin B2) (Vitamin B-2) 200 mg (2 x 100 mg) PO BID 28 days sennosides (Natural Senna Laxative) 17.2 mg (2 x 8.6 mg) PO BEDTIME trazodone 150 mg PO ONCE valacyclovir 1,000 mg PO DAILY HPI Comments Details: ? 59y/o female comes for treatment of migraines with botox. How many migraine days prior to botox 25-30/month How long do the migraines last 1-2 days Intensity of migraine8-10 ER visits related to migraine 1-2 Effectiveness of botox from last two treatment(s) How many migraine days since receiving treatment:5-10/month Change? in intensity of migraine?decreased Change in frequency of migraine?decreased Change in use of acute medication for migraine?decreased Change in quality of life?improved ER visits related to migraine?none Explanation for any gaps in treatment- hospitalized for syncope, malnutrition Have at least three months elapsed since last treatment (Last botox date - frequency of injections) 3 mths ??? Most frequent reported adverse reactions following injection of botox for chronic migraine include neck pain (9%), headache(5%), eyelid ptosis(4%), migraine(4%), muscular weakness(4%), musculuskeletal stiffness(4%), bronchitis(3%), injection site pain (3%), musculoskeletal pain(3%), myalgia(3%), facial paresis(2%), HTN(2%) and muscle spasms(2%) were discussed in detail. ??? Botulinum toxin typeA 200units Lot no [id number] expiration 03/2027 was diluted with 4 cc of normal saline . ??? Muscles injected ??? Frontalis 4 sites ??? Procerus 1 site ??? [employer] Front End Web Developer- 2 sites ??? Temporalis- 8 sites ??? Occipitalis- 6 sites ??? Cervical paraspinals- 4 sites ??? Trapezius- 6 sites- 5 units each ??? 5 units each in 31 site ??? Total use- 155units ??? Discarded-45units [facility] Medical History Major depressive disorder, recurrent CVA (cerebral vascular accident) Seizure Personal history of nicotine dependence Cervicalgia Chronic migraine without aura, intractable, without status migrainosus History of low back pain Hx of myocardial infarction (~11/2022) Hx of migraines CKD (chronic kidney disease) History of blood transfusion (~04/2023) Weakness of both legs History of seizures Internal hernia Excess skin of upper extremity Lipoma History of lipoma Sleep apnea with use of continuous positive airway pressure (CPAP) Hypercholesterolemia Type 2 diabetes mellitus Anemia Lymphedema Migraines Anxiety Back pain Arthritis Carpal tunnel syndrome Body mass index (BMI) of 32.0-32.9 in adult Obesity (BMI 30-39.9) Intestinal malabsorption following gastrectomy H/O nephrolithotomy with removal of calculi Surgical History Hx of cataract surgery S/P brachioplasty S/P panniculectomy History of dental surgery (~06/2023) H/O hernia repair History of gastric surgery Hx of colonoscopy Hx of lumpectomy H/O cervical discectomy History of Zane-en-Y gastric bypass S/P carpal tunnel release Hx of section S/P knee replacement History of back surgery Family History Father No problems noted. Mother Arthritis Brother No problems noted. Brother No problems noted. Sister No problems noted. Sister No problems noted. Sister No problems noted. Sister No problems noted. Son No problems noted. Daughter No problems noted. 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 Caregiver staying overnight: No Housing: House Are you a primary director of critical care to a significant other at home: No Do you presently have visiting nurse or other home services: Yes ([employer] 4 hrs/day) Alcohol intake: former Patient Tobacco Use Status: Former Tobacco user Tobacco use type: Cigarette Years Smoked: (former smoker 20pyh quit 2018) Advance Directives Date on File: 07/04/21 service: No Current occupational status: disabled Physical Exam Const General: healthy appearing, no acute distress and well developed Nutritional Appearance: well nourished Orientation/consciousness: patient oriented x3 Neuro Other: walks with a walker Neck - severe tightness and tenderness in left splenius, semispinalis, trapezius, levator muscle with pain radiating to the left parietal temporla region General: patient oriented x3, tone normal and moves all extremities Psych Appearance: grossly normal Mental Status: mental status grossly normal Office Procedures Botulinum toxin Injection 99707 - Migraine Procedure code (CPT) selection complete Office Meds onabotulinumtoxinA 200 unit solution for injection Performing Provider: Yas Adam MD Performing Location: [facility] [place] [facility] Administered by: Yas Adam MD on 11/21/24 13:27 Dose Route Admin Location Dispensed Lot Number Expiration Date [facility] Pump [employer]ner 155 unit subcut 200 units [id number] [employer]OTOX Comments: see HPI Assessment & Plan Assessment & Plan (1) Chronic migraine without aura: Comment: w/ neuralgia component over left uatsdin Code(s): G43.709 - Chronic migraine without aura, not intractable, without status migrainosus Category: Medical Qualifiers: Status migrainosus presence: without status migrainosus Intractability: intractable Qualified Code(s): G43.719 - Chronic migraine without aura, intractable, without status migrainosus (2) Chronic migraine without aura, intractable, without status migrainosus: Code(s): G43.719 - Chronic migraine without aura, intractable, without status migrainosus Category: Medical (3) Cervicalgia: Code(s): M54.2 - Cervicalgia Category: Medical Plan Patient tolerated the procedure well . SHe will call with any side effects Orders: Orders AMB Botulinum toxin Injection Today G43.719 - Chronic migraine without aura, intractable, without status migrainosus Medications: New onabotulinumtoxinA 200 units subcut ONCE 1 ea 0RF migraine G43.719 - Chronic migraine without aura, intractable, without status migrainosus Coding Level of Care Code Est Pt Level 1 (82385) Diagnoses Intractable chronic migraine without aura and without status migrainosus G43.719 Status migrainosus presence: without status migrainosus Intractability: intractable Chronic migraine without aura, intractable, without status migrainosus G43.719 Cervicalgia M54.2 CPT Codes Botox Injection - Botox 3: 55558 - Migraine ([id number])
--- OUTSIDE RECORDS SUMMARY | 2024-11-21 14:33 | XMS_ITS | Encounter Summary ---
Author Organization [place] [address] Care Team Providers Care Elderly Caregiver Name Role Phone Carri Reynoso MD Primary Care Provider [phone] Reason for Visit * Reason Comments Back Pain Radiates down leg Encounter Details Date Type Department Care Team (Late st Contact Info) Description 11/16/2024 4:27 PM EDT - 11/16/2024 10:09 PM EDT Emergency [facility] Emergency [address] [place] [id number] Chest wall pain (Primary Dx); Elevated liver transaminase level; Right sciatic nerve pain Discharge Disposition: Home or Self Care [...] Sign Reading Time Taken Comments Blood Pressure 112/55 11/16/2024 9:52 PM EDT Pulse 78 11/16/2024 9:52 PM EDT Temperature 36.6 ??C (97.9 ??F) 11/16/2024 9:52 PM ED T Respiratory Rate 14 11/16/2024 9:52 PM EDT Oxygen Saturation 95% 11/16/2024 9:52 PM EDT Inhaled Oxygen Concentration - - Weight 110 kg (243 lb) 11/16/2024 2:57 PM EDT Height 167.6 cm (5' 6 ) 11/16/2024 2:57 PM EDT Body Mass Index 39.22 11/16/2024 2:57 PM EDT documented in this encounter Discharge Instructions * Discharge Instructions* KINDRA Salgado - 11/16/2024 9:22 PM EDT I am discharging you home with prednisone to take for ongoing management of your right sciatic painand oxycodone to take only as needed. Please follow-up with your primary care provider within 1 week for a reevaluation of your liver function tests. I would like you to avoid taking acetaminophen until you are cleared to do so by your primary care provider. Follow up with your primary provider. Call tomorrow for appointment. Return to Emergency Department if symptoms worsen, do not improve, or any other concern. Get well soon! Thank you for coming to the [facility] Emergency Department today. Our entire team works together to provide you with the best care possible. Examination and treatment you received in the emergency department has been rendered on an EMERGENCY basis only. It is not intended to be a substitute for or an effort to provide complete medical care. You should follow-up with your primary care provider. Please report to your physician any new or remaining problems, because it is impossible to recognize and treat all elements of injury or illness in a single emergency department visit. In the event that you're unable to obtain a followup appointment in a timely fashion, OR you are not getting any better, OR you are getting worse, OR you develop any symptoms of concern, please return here immediately for further evaluation. The emergency department is open 24 hours a day, 7 days aweek. Your discharge report is based on information that was available when you were in the emergency department. If you do not have a primary care provider, please contact one of the following to make arrangements to follow up. [facility] * Attachments The following attachments cannot be sent through Care Everywhere. * Sciatica (M[place]ese) documented in this encounter Medications at Time of Discharge oxyCODONE (OXY-IR) 5 mg immediate release capsule Take 1 capsule (5 mg total) by mouth every 6 (six) hours if needed for severe pain. Max Daily Amount: 20 mg 8 capsule 11/16/2024 predniSONE (DELTASONE) 20 mg tablet Take 2 tablets (40 mg total) by mouth 1 (one) time each day for 5 days. 10 each 11/16/2024 11/21/2024 documented as of this encounter Ordered Prescriptions Prescription Sig Dispense Quantity Refills Last Filled Start Date End Date oxyCODONE (OXY-IR) 5 mg immediate release capsule Take 1 capsule (5 mg total) by mouth every 6 (six) hours if needed for severe pain. Max Daily Amount: 20 mg 8 capsule 11/16/2024 predniSONE (DELTASONE) 20 mg tablet Take 2 tablets (40 mg total) by mouth 1 (one) time each day for 5 days. 10 each 11/16/2024 documented in this encounter Discharge Disposition Disposition Code Departure Means Destination Comment s Home or Self Care Pt provided with discharge instructions, as well as new prescription education. Agreed to plan of care and verbalized understanding. Left ED with even steady gait., picked up by a [employer] documented in this encounter Progress Notes * Acacia Lopez RN - 11/16/2024 5:42 PM EDT Pt reporting left sided chest pain that is stabbing in nature and is intermittent. This chest pain started 3 days ago, reports hx of heart attack in 2022. Lower back pain goes down both legs with right leg feeling worse than left, rates this pain 10/10 reports it is burning and pounding. Back pain has been going on for years but has been getting worse and today became unbearable. Ambulated with a walker to ED stretcher, gait steady. * Lata Obrien RN - 11/16/2024 2:55 PM EDT Pt to ed reports lower back pain radiating down both legs. Started two weeks ago and continues. Pt ambulates with walker at baseline documented in this encounter Plan of Treatment Not on file documented as of this encounter Procedures Procedure Name Priority Date/Time Associated Diagnosis Comments XR CHEST 2 VIEWS STAT 11/16/2024 7:51 PM EDT TROPONIN I HIGH SENSITIVITY STAT 11/16/2024 7:10 PM EDT TROPONIN I HIGH SENSITIVITY STAT 11/16/2024 6:05 PM EDT CBC WITH AUTO DIFFERENTIAL STAT 11/16/2024 6:05 PM EDT CBC AND DIFFERENTIAL STAT 11/16/2024 6:05 PM EDT B-TYPE NATRIURETIC PEPTIDE STAT 11/16/2024 6:05 PM EDT MAGNESIUM STAT 11/16/2024 6:05 PM EDT LIPASE STAT 11/16/2024 6:05 PM EDT ACETAMINOPHEN LEVEL STAT Add-on 11/16/2024 6 :05 PM EDT COMPREHENSIVE METABOLIC PANEL STAT 11/16/2024 6:05 PM EDT ECG 12-LEAD STAT 11/16/2024 5:57 PM EDT documented in this encounter Results * XR Chest 2 Views (11/16/2024 7:51 PM EDT) Anatomical Region Laterality Modality Body Radiographic Yuliana ging 11/16/2024 10:1 9 PM EDT Impressions 11/16/2024 10:20 PM EDT FINDINGS/IMPRESSION: Hypoventilatory examination without consolidation or effusion. ??No congestive heart failure. ??Possible nodule at the right lung apex. ??Epidural stimulator leads and cholecystectomy clips. ?? -------- FINAL REPORT -------- Dictated By: Nimo Leal Dictated Date: 11/16/2024 22:19 ET Assigned Physician: Nimo Leal Reviewed and Electronically Signed By: Nimo Leal Signed Date: 11/16/2024 22:20 ET Workstation ID: [id number] Transcribed By: Self Edit Transcribed Date: 11/16/2024 22:19 ET Narrative 11/16/2024 10:20 PM EDT XR CHEST 2 VIEWS INDICATION: chest pain TECHNIQUE: XR CHEST 2 VIEWS COMPARISON: No priors available. Procedure Note Nimo Leal MD - 11/16/2024 XR CHEST 2 VIEWS INDICATION: chest pain TECHNIQUE: XR CHEST 2 VIEWS COMPARISON: No priors available. IMPRESSION: FINDINGS/IMPRESSION: Hypoventilatory examination without consolidation oreffusion. No congestive heart failure. Possible nodule at the right lungapex. Epidural stimulator leads and cholecystectomy clips. -------- FINAL REPORT -------- Dictated By: Nimo Leal Dictated Date: 11/16/2024 22:19 ET Assigned Physician: Nimo Leal Reviewed and Electronically Signed By: Nimo Leal Signed Date: 11/16/2024 22:20 ET Workstation ID: [id number] Transcribed By: Self Edit Transcribed Date: 11/16/2024 22:19 ET us Bhakti ARGUELLES IMG XR PROCEDURES Final Re sult * Troponin I high sensitivity (11/16/2024 7:10 PM EDT) Pathologist [facility] High Sensitivity Troponin I 3 <=54 ng/L LAB CHEMISTRY METHOD 11/16/2024 8:30 PM EDT [facility] Blood Venous blood specimen / Unknown Venipuncture / Unknown 11/16/2024 7:10 PM EDT 11/16/2024 7:44 PM EDT Narrative [facility] - 11/16/2024 8:30 PM EDT High levels of biotin in samples may falsely decrease hsTroponin values. ??Use caution when interpreting hsTroponin results in patients taking biotin who exhibit renal impairment (eGFR <60) or in patients taking more than 20 mg/day of biotin. Bhakti ARGUELLES LAB BLOOD ORDERABLES Final Result Performing Organization Address [facility]/ZIP Co de Phone Number [facility] [address] [place] [address], [place] [phone] * (ABNORMAL) Acetaminophen level (11/16/2024 6:05 PM EDT) Acetaminophen Level <2.0(L) 10.0 - 30.0 mcg/mL LAB CHEMISTRY METHOD 11/16/2024 9:05 PM EDT [facility] Blood Venous blood specimen / Unknown Venipuncture / Unknown 11/16/2024 6:05 PM EDT 11/16/2024 6:19 PM EDT Bhakti ARGUELLES LAB BLOOD ORDERABLES Final Result Performing Organization Address [facility] de Phone Number [facility] [address] [place] [address], [place] [phone] * (ABNORMAL) CBC auto differential (11/16/2024 6:05 PM EDT) WBC 10.8 4.8 - 10.8 K/mcL LAB HEMETOLOGY METHOD 11/16/2024 6:53 PM EDT [facility] RBC 4.00 3.80 - 4.80 M/mcL LAB HEMETOLOGY METHOD 11/16/2024 6:53 PM EDT [facility] Hemoglobin 10.6(L) 11.5 - 16.0 g/dL LAB HEMETOLOGY METHOD 11/16/2024 6:53 PM EDT [facility] Hematocrit 35.4 35.0 - 47.0 % LAB HEMETOLOGY METHOD 11/16/2024 6:53 PM EDT [facility] MCV 89.4 79.0 - 98.0 FL LAB HEMETOLOGY [facility]24 [facility] MCH 26.8(L) 27.0 - 32.0 pcg LAB HEMETOLOGY METHOD 11/16[facility]2024 6[facility] MCHC 29.9(L) 32.0 - 37.0 g/dL LAB HEMETOLOGY METHOD 11/16/2024 6:53 PM [facility] RDW 14.6 11.0 - 15.0 % LAB HEMETOLOGY METHOD 11/16/2024 6:53 PM [facility] Platelets 129(L) 130 - 400 K/mcL LAB HEMETOLOGY METHOD 11/16/2024 6:53 PM [facility] MPV 10.2 7.0 - 11.0 FL LAB HEMETOLOGY METHOD 11/16/2024 6:53 PM [facility] NRBC 0.0 <1.0 % LAB HEMETOLOGY METHOD 11/16/2024 6:53 PM [facility] NRBC Absolute 0.00 <0.10 K/mcL LAB HEMETOLOGY METHOD 11/16/2024 6:53 PM [facility] Neutrophils Relative 70.0 % LAB HEMETOLOGY METHOD 11/16/2024 6:53 PM [facility] Lymphocytes Relative 21.5 % LAB HEMETOLOGY METHOD 11/16/2024 6:53 PM [facility] Monocytes Relative 5.2 % LAB HEMETOLOGY METHOD 11/16/2024 6:53 PM [facility] Eosinophils Relative 2.3 % LAB HEMETOLOGY METHOD 11/16/2024 6:53 PM [facility] Basophils Relative 0.3 % LAB HEMETOLOGY METHOD 11/16/2024 6:53 PM EDT [facility] Immature Granulocytes Relative 0.7 % LAB HEMETOLOGY METHOD 11/16/2024 6:53 PM EDT [facility] Neutrophils Absolute 7.54(H) 1.50 - 7.00 K/mcL LAB HEMETOLOGY METHOD 11/16/2024 6:53 PM EDT [facility] Lymphocytes Absolute 2.31 1.00 - 5.00 K/mcL LAB HEMETOLOGY METHOD 11/16/2024 6:53 PM EDT [facility] Monocytes Absolute 0.56 0.20 - 1.00 K/mcL LAB HEMETOLOGY METHOD 11/16/2024 6:53 PM EDT [facility] Eosinophils Absolute 0.25 0.00 - 0.50 K/mcL LAB HEMETOLOGY METHOD 11/16/2024 6:53 PM EDT [facility] Basophils Absolute 0.03 0.00 - 0.20 K/mcL LAB HEMETOLOGY METHOD 11/16/2024 6:53 PM EDT [facility] Immature Granulocytes Absolute 0.07(H) 0.00 - 0.03 K/mcL LAB HEMETOLOGY METHOD 11/16/2024 6:53 PM EDT [facility] Blood Venous blood specimen / Unknown Venipuncture / Unknown 11/16/2024 6:05 PM EDT 11/16/2024 6:19 PM EDT us Bhakti ARGUELLES LAB BLOOD ORDERABLES Final Result [facility] [address] [place] [address], * B-type natriuretic peptide (11/16/2024 6:05 PM EDT) BNP 10 <=100 pcg/mL LAB CHEMISTRY METHOD 11/16/2024 7:33 PM EDT [facility] Blood Venous blood specimen / Unknown Venipuncture / Unknown 11/16/2024 6:05 PM EDT 11/16/2024 6:19 PM EDT Bhakti ARGUELLES LAB BLOOD ORDERABLES Final Result Performing Organization Address [facility]/ZIP Co de Phone Number [facility] [address] [place] [address], [place] [phone] * Magnesium (11/16/2024 6:05 PM EDT) Magnesium 2.2 1.9 - 2.6 mg/dL LAB CHEMISTRY METHOD 11/16/2024 6:53 PM EDT [facility] Blood Venous blood specimen / Unknown Venipuncture / Unknown 11/16/2024 6:05 PM EDT 11/16/2024 6:19 PM EDT Bhakti ARGUELLES LAB BLOOD ORDERABLES Final Result Performing Organization Address [facility] de Phone Number [facility] [address] [place] [address], [place] [phone] * Lipase (11/16/2024 6:05 PM EDT) Lipase 14 13 - 75 unit/L LAB CHEMISTRY METHOD 11/16/2024 6:53 PM EDT [facility] Blood Venous blood specimen / Unknown Venipuncture / Unknown 11/16/2024 6:05 PM EDT 11/16/2024 6:19 PM EDT Bhakti ARGUELLES LAB BLOOD ORDERABLES Final Result Performing Organization Address City/[facility]/ZIP Co de Phone Number [facility] [address] [place] [address], [place] [phone] * (ABNORMAL) Comprehensive metabolic panel (11/16/2024 6:05 PM EDT) Sodium 139 133 - 145 mmol/L LAB CHEMISTRY METHOD 11/16/2024 6:53 PM [facility] Potassium 4.3 3.5 - 5.5 mmol/L LAB CHEMISTRY METHOD 11/16/2024 6:53 PM [facility] Comment:Hemolysis present Chloride 104 96 - 110 mmol/L LAB CHEMISTRY METHOD 11/16/2024 6:53 PM [facility] CO2 28 21 - 32 mmol/L LAB CHEMISTRY METHOD 11/16/2024 6:53 PM [facility] Anion Gap 7 3 - 11 LAB CHEMISTRY METHOD 11/16/2024 6:53 PM [facility] Glucose 90 70 - 100 mg/dL LAB CHEMISTRY METHOD 11/16/2024 6:53 PM [facility] BUN 16 5 - 25 mg/dL LAB CHEMISTRY METHOD 11/16/2024 6:53 PM [facility] Creatinine 0.86 0.50 - 1.10 mg/dL LAB CHEMISTRY METHOD 11/16/2024 6:53 PM [facility] eGFR 79 >=60 mL/min/1. 73m2 LAB CHEMISTRY METHOD 11/16/2024 6:53 PM [facility] Comment:Calculation based on the Chronic Kidney Disease Epidemiology Collaboration (CKD-EPI) equation refit without adjustment for race. BUN/Creatinine Ratio 18.6 LAB CHEMISTRY METHOD 11/16/2024 6:53 PM [facility] Calcium 7.7(L) 8.5 - 10.5 mg/dL LAB CHEMISTRY METHOD 11/16/2024 6:53 PM [facility] AST (SGOT) 140(H) 10 - 42 unit/L LAB CHEMISTRY METHOD 11/16/2024 6:53 PM [facility] Comment:Hemolysis present ALT (SGPT) 376(H) 10 - 60 unit/L LAB CHEMISTRY METHOD 11/16/2024 6:53 PM EDT [facility] Alkaline Phosphatase 372(H) 42 - 121 unit/L LAB CHEMISTRY METHOD 11/16/2024 6:53 PM EDT [facility] Total Protein 6.2 6.0 - 8.0 g/dL LAB CHEMISTRY METHOD 11/16/2024 6:53 PM EDT [facility] Albumin 3.2 3.2 - 5.0 g/dL LAB CHEMISTRY METHOD 11/16/2024 6:53 PM EDT [facility] Total Bilirubin 0.2 0.0 - 1.4 mg/dL LAB CHEMISTRY METHOD 11/16/2024 6:53 PM EDT [facility] Blood Venous blood specimen / Unknown Venipuncture / Unknown 11/16/2024 6:05 PM EDT 11/16/2024 6:19 PM EDT us Bhakti ARGUELLES LAB BLOOD ORDERABLES Final Result [facility] [address] [place] [address], * Troponin I high sensitivity (11/16/2024 6:05 PM EDT) High Sensitivity Troponin I 4 <=54 ng/L LAB CHEMISTRY METHOD 11/16/2024 7:00 PM EDT [facility] Blood Venous blood specimen / Unknown Venipuncture / Unknown 11/16/2024 6:05 PM EDT 11/16/2024 6:19 PM EDT Narrative [facility] - 11/16/2024 7:00 PM EDT High levels of biotin in samples may falsely decrease hsTroponin values. ??Use caution when interpreting hsTroponin results in patients taking biotin who exhibit renal impairment (eGFR <60) or in patients taking more than 20 mg/day of biotin. Bhakti ARGUELLES LAB BLOOD ORDERABLES Final Result [facility] [place] ([facility]) [facility] [address] [place] [address], [place] [phone] * ECG 12 lead (11/16/2024 5:57 PM EDT) Ventricular Rate ECG 72 BPM GEMUSE Atrial Rate 72 BPM GEMUSE P-R Interval 124 ms GEMUSE QRS Duration 84 ms GEMUSE Q-T Interval 410 ms GEMUSE QTc 448 ms GEMUSE P Wave Shubert 51 degrees GEMUSE R Shubert -2 degrees GEMUSE T Shubert 12 degrees GEMUSE ECG Interpretation Normal sinus rhythm Moderate voltage criteria for LVH, may be normal variant When compared with ECG of 03-NOV-2024 19:12, No significant change was found Confirmed by EDWAR COSTELLO ([id number]) on 11/17/2024 8:30:19 AM GEMUSE 11/16/2024 5:57 PM EDT 11/17/2024 8:30 AM EDT Bhakti ARGUELLES ECG ORDERABLES Final Resu lt Performing Organization Address [facility] Co de Phone Number GEMUSE documented in this encounter Visit Diagnoses Diagnosis Chest wall pain- Primary Painful respiration Elevated liver transaminase level Right sciatic nerve pain documented in this encounter Administered Medications Inactive Administered Medications - up to 3 most recent administrations Medication Order MAR Action Action Date Dose Rate Site methocarbamoL (ROBAXIN) tablet 1,500 mg 1,500 mg, oral, Once, On [place] 11/16/24 at 1859, For 1 dose Given 11/16/2024 7:25 PM EDT 1,500 mg methylPREDNISolone sodium succ (SOLU-Medrol) injection 80 mg 80 mg, intravenous, Once, On [place] 11/16/24 at 1859, For 1 dose, Reconstitute each 40 mg vial with 1 mL sterile water for injection to a concentration of 40 mg/mL. Given 11/16/2024 7:21 PM EDT 80 mg morphine injection 4 mg 4 mg, intravenous, Once, On [place] 11/16/24 at 1859, For 1 dose Given 11/16/2024 7:16 PM EDT 4 mg ondansetron (PF) (ZOFRAN) injection 4 mg 4 mg, intravenous, Once, On [place] 11/16/24 at 1859, For 1 dose Given 11/16/2024 7:14 PM EDT 4 mg oxyCODONE (ROXICODONE) immediate release tablet 5 mg 5 mg, oral, Once, On [place] 11/16/24 at 2056, For 1 dose Given 11/16/2024 9:42 PM EDT 5 mg documented in this encounter Active and Recently Administered Medications Times are shown in EDT. Scheduled Medication Order 11/14/2024 11/15/2024 11/16/2024 acetaminophen (TYLENOL) tablet 1,000 mg 1,000 mg, oral, Once, On [place] 11/16/24 at 2032, For 1 dose 2101 (Not Given - Pr ovider: Lottie Cason RN - Reason: Contraindicated) methocarbamoL (ROBAXIN) tablet 1,500 mg (COMPLETED) 1,500 mg, oral, Once, On [place] 11/16/24 at 185, For 1 dose 1924 (Given - Provid er: Acacia Lopez RN) methylPREDNISolone sodium succ (SOLU-Medrol) injection 80 mg (COMPLETED) 80 mg, intravenous, Once, On [place] 11/16/24 at 185, For 1 dose, Reconstitute each 40 mg vial with 1 mL sterile water for injection to a concentration of 40 mg/mL. 1920 (Given - Provid er: Acacia Lopez RN) morphine injection 4 mg (COMPLETED) 4 mg, intravenous, Once, On [place] 25 at 1859, For 1 dose 1915 (Given - Provid er: Acacia Lopez RN) ondansetron (PF) (ZOFRAN) injection 4 mg (COMPLETED) 4 mg, intravenous, Once, On [place] 25 at 1859, For 1 dose 1913 (Given - Provid er: Acacia Lopez RN) oxyCODONE (ROXICODONE) immediate release tablet 5 mg (COMPLETED) 5 mg, oral, Once, On [place] 11/16/24 at 2057, For 1 dose 2141 (Given - Provid er: Lottie Cason RN) documented in this encounter Orders Medications Ordered That Bhaskar ht Not Have Been Administered Count Last Ordered Date First Ordered Date acetaminophen (TYLENOL) tablet 1,000 mg 1 0 11/16/2024 EKG Orders Without Results Count Last Ordered D ate First Ordered Date ECG 12-LEAD 1 11/16/2024 IV Count Last Ordered Date First Orde red Date INSERT PERIPHERAL IV 1 11/16/2024 SALINE LOCK IV 1 11/16/2024 documented in this encounter Care Teams Elderly Caregiver Relationship Specialty Start Date End Date Carri Reynoso MD [address] [place], [place] PCP - General 11/07/09 documented as of this encounter
== END 2024-11-21 13:07 | disposition home or self-care (01) ==
LOC: HO.HSMS 12:22
PROVIDERS: PCP Internal Medicine; Visit Provider Psychiatry & Neurology Neurology
DX: G43.719 Chronic migraine without aura, intractable, without status migrainosus (principal); M54.2 Cervicalgia
CPT/HCPCS: 64615

== ENCOUNTER → 2024-11-21 12:21 | Outpatient (BNVA) | payer MEDICAID, SELFPAY | PROVIDERS: PCP Internal Medicine; Visit Provider Psychiatry & Neurology Neurology | DX: M54.2 Cervicalgia (principal); G43.719 Chronic migraine without aura, intractable, without status migrainosus | CPT/HCPCS: 64615; 99211; J0585 ==

== ENCOUNTER 2024-12-19 10:42 | Outpatient (AMB) | payer MEDICAID, SELFPAY ==
--- NOTE | 2024-12-19 10:49 | A.OFFVIS_ITS ---
VS Expanded 12/19/24 11:06 BP 123/65 Blood Pressure Location Rt brachial Blood Pressure Position Sitting Pulse 81 Pulse Source Pulse Oximeter Temp 99 F Temperature Source Temporal Artery Scan Pulse Oximetry 99 Oxygen Delivery Method Room Air Height 5 ft 6 in Weight 249 lb 9.6 oz BMI 40.3 Body Fat % 48.1 Body Fat Mass 120.0 Fat Free Mass 129.6 Visceral Fat Rating 15.0 Body Water % 36.9 Body Water Mass 92.2 Muscle Mass/Score 123.0 Basal Metabolic Rate/Score 1,834 Intake Visit Reasons: (OV) POST OP 04/05/2019 Allergies amoxicillin Allergy (Severe, Verified 11/21/24 12:53) yeast infection, itching gabapentin Allergy (Severe, Verified 11/21/24 12:53) Swelling meloxicam Allergy (Severe, Verified 11/21/24 12:53) Swelling baclofen Allergy (Intermediate, Verified 11/21/24 12:53) Swelling, sob lamotrigine Allergy (Unknown, Verified 11/21/24 12:53) Swelling Medication List - Last Reconciled 12/19/24 by KINDRA Hopkins blood pressure monitor Check BP bid and prn lightheadedness celecoxib 200 mg PO DAILY cetirizine (All Day Allergy (cetirizine)) 10 mg PO DAILY PRN clonazepam (Klonopin) 0.5 mg PO DAILY cyanocobalamin (vitamin B-12) 200 mcg PO DAILY cyclobenzaprine 10 mg PO BID dicyclomine 10 mg PO DAILY docusate sodium (Colace) 100 mg PO DAILY escitalopram oxalate 5 mg PO DAILY levetiracetam 500 mg PO BID lurasidone 120 mg PO DAILY nortriptyline 25 mg PO BID pantoprazole 40 mg PO DAILY 90 days polyethylene glycol 3350 (Miralax) 17 grams PO DAILY polyethylene glycol 3350 grams PO DAILY riboflavin (vitamin B2) (Vitamin B-2) 200 mg (2 x 100 mg) PO BID 28 days sennosides (Natural Senna Laxative) 17.2 mg (2 x 8.6 mg) PO BEDTIME trazodone 150 mg PO ONCE valacyclovir 1,000 mg PO DAILY HPI Comments Details: Pt is s/p RYGB 04/05/2019. Has regained significant weight since last OV 11mo ago- almost 60lbs. Was previously able to achieve a healthy BMI. Had surgery recently with Dr Ortega, spine/back- last week. Current meal plan- I eat a little bit of breakfast, then a shake, then I have dinner - rice and beans, or chicken with veg. Says she will eat rice 1-2x/week Difficulty with exercise due to chronic pain- using a walker for mobility now. [facility] Medical History Major depressive disorder, recurrent CVA (cerebral vascular accident) Seizure Personal history of nicotine dependence Cervicalgia Chronic migraine without aura, intractable, without status migrainosus History of low back pain Hx of myocardial infarction (~11/2022) Hx of migraines CKD (chronic kidney disease) History of blood transfusion (~04/2023) Weakness of both legs History of seizures Internal hernia Excess skin of upper extremity Lipoma History of lipoma Sleep apnea with use of continuous positive airway pressure (CPAP) Hypercholesterolemia Type 2 diabetes mellitus Anemia Lymphedema Migraines Anxiety Back pain Arthritis Carpal tunnel syndrome Body mass index (BMI) of 32.0-32.9 in adult Obesity (BMI 30-39.9) Intestinal malabsorption following gastrectomy H/O nephrolithotomy with removal of calculi Surgical History Hx of cataract surgery S/P brachioplasty S/P panniculectomy History of dental surgery (~06/2023) H/O hernia repair History of gastric surgery Hx of colonoscopy Hx of lumpectomy H/O cervical discectomy History of Zane-en-Y gastric bypass S/P carpal tunnel release Hx of section S/P knee replacement History of back surgery Family History Father No problems noted. Mother Arthritis Brother No problems noted. Brother No problems noted. Sister No problems noted. Sister No problems noted. Sister No problems noted. Sister No problems noted. Son No problems noted. Daughter No problems noted. 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 Caregiver staying overnight: No Housing: House Are you a primary neurocritical care physician to a significant other at home: No Do you presently have visiting nurse or other home services: Yes ([employer] 4 hrs/day) Alcohol intake: former Patient Tobacco Use Status: Former Tobacco user Tobacco use type: Cigarette Years Smoked: (former smoker 20pyh quit 2018) Advance Directives Date on File: 07/04/21 service: No Current occupational status: disabled Physical Exam Vital Signs: Last Vital Signs Temp 99 F 12/19/24 11:06 Pulse 81 12/19/24 11:06 BP 123/65 12/19/24 11:06 Pulse Ox 99 12/19/24 11:06 Oxygen Delivery Method Room Air 12/19/24 11:06 BMI result Body Mass Index 40.3 Assessment & Plan Assessment & Plan (1) Obesity (BMI 30-39.9): Code(s): E66.9 - Obesity, unspecified Category: Medical (2) Gastric bypass status for obesity: Code(s): Z98.84 - Bariatric surgery status Category: Medical Plan Pt is interested in starting GLP1. Reviewed contraindications, discussed dosing. Discussed need for adequate protein intake while on GLP1s as well as frequent communication with our office. Pt will check in with me weekly and is aware that subsequent Rx will be dependent on frequent communication. Sent [employer] kang info via text. Will discuss pt's elevated liver enzymes and whether she is an appropriate candidate for GLP1 with her PCP Dr. Reynoso. RTC 3mo.
[2024-12-19 11:06] VITALS: BP 123/65; PULSE 81; TEMP 37.2; O2SAT 99; BMI 40.3
--- OUTSIDE RECORDS SUMMARY | 2024-12-19 11:43 | XMS_ITS | Clinical Summary ---
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 21 each 4 Active oxyCODONE (OXY-IR) 5 mg immediate release capsule Take 1 capsule (5 mg total) by mouth every 6 (six) hours if needed for severe pain. Max Daily Amount: 20 mg 8 capsule 5 Active omeprazole (PriLOSEC) [address] capsule Take 2 capsules (40 mg total) by mouth 1 (one) time each day. Do not crush or chew. 60 each 5 12/25/19 25 Active predniSONE (DELTASONE) 20 mg tablet Take 2 tablets (40 mg total) by mouth 1 (one) time each day for 5 days. 10 each 5 11/22/19 25 ondansetron ODT (ZOFRAN-ODT) 4 mg disintegrating tablet Let 1 tablet dissolve under the tongue three times daily as needed for nausea or vomiting. 10 tablet 5 12/02/19 25 Active Problems No known active problems Encounters Date Type Department Care Team Description 11/24/2024 4:16 AM EDT - 11/24/2024 9:38 AM EDT Emergency [facility] Emergency [address] [place] [address] Esophagitis (Primary Dx) Discharge Disposition: Home or Self Care 11/16/2024 4:27 PM EDT - 11/16/2024 10:09 PM EDT Emergency [facility] Emergency [address] [place] [address] Chest wall pain (Primary Dx); Elevated liver transaminase level; Right sciatic nerve pain Discharge Disposition: Home or Self Care 11/03/2024 11:04 PM EDT - 11/04/2024 2:39 AM EDT Emergency [facility] Emergency [address] [place] [id number] Nadya Goncalves MD Atypical pneumonia (Primary Dx); Costochondral chest pain Discharge Disposition: Home or Self Care from Last 3 Months Surgical History Surgery Date Site/Laterality Comments BACK SURGERY 1999 PROCEDURE: HISTORICAL BACK SURGERY; COMMENT: L5 fusion Dr Issa at [facility] GASTRIC BYPASS PROCEDURE: GASTRIC BYPASS FOR OBESIT; COMMENT: performed one yr ago COLONOSCOPY PROCEDURE: HISTORICAL COLONOSCOPY COLONOSCOPY PROCEDURE: HISTORICAL COLONOSCOPY; COMMENT: Performed on November 28, 2020 HERNIA REPAIR PROCEDURE: SC REPAIR FIRST ABDOMINAL WALL HERNIA Medical History [...] Sign Reading Time Taken Comments Blood Pressure 115/82 11/24/2024 6:59 AM EDT Pulse 82 11/24/2024 6:59 AM EDT Temperature 36.4 C (97.5 F) 11/24/2024 6:59 AM EDT Respiratory Rate 18 11/24/2024 6:59 AM EDT Oxygen Saturation 99% 11/24/2024 6:59 AM EDT Inhaled Oxygen Concentration - - Weight 110 kg (243 lb) 11/23/2024 9:09 PM EDT Height 167.6 cm (5' 6 ) 11/23/2024 9:09 PM EDT Body Mass Index 39.22 11/23/2024 9:09 PM EDT Plan of Treatment Health Maintenance Due Date [...] 2024 07/10/2023, 12/23/2021, 03/31/2021, Additional history exists Breast Cancer Screening 04/29/2024 04/29/20 22, 04/22/2021, 03/12/2020, Additional history exists Influenza Vaccine (#1) 2025 , 05/23/2022, 03/31/2021, Additional history exists Hypertension/CHF/CAD Annual BMP Blood Test 11/23/2025 11/23/2024, 11/16/2024, 11/03/2024, Additional history exists DTaP,Tdap,and Td Vaccines (5 [...] age to complete this topic Meningococcal B Vaccine Aged Out No l onger eligible based on patient's age to complete this topic RSV Immunization Patients Under 20 months Aged Out No longer eligible based on patient's age to complete this topic Varicella Vaccines Aged Out No longer eligible based on patient's age to complete this topic Procedures Procedure Name Priority Date/Time Associated Diagnosis Comments CT ABDOMEN PELVIS W CONTRAST STAT 11/24/2024 7:58 AM EDT KENNY URINE CULTURE TUBE STAT 11/24/2024 7:38 AM EDT URINALYSIS WITH REFLEX MICROSCOPIC AND CULTURE STAT 11/24/2024 7:38 AM EDT URINALYSIS WITH REFLEX MICROSCOPIC AND CULTURE STAT 11/24/2024 7:38 AM EDT HCG, SERUM, QUALITATIVE STAT Add-on 11/23/2024 9:16 PM EDT CBC WITH AUTO DIFFERENTIAL STAT 11/23/2024 9:16 PM EDT LIPASE STAT 11/23/2024 9:16 PM EDT COMPREHENSIVE METABOLIC PANEL STAT 11/23/2024 9:16 PM EDT CBC AND DIFFERENTIAL STAT 11/23/2024 9:16 PM EDT ECG ANNOTATED 11/21/2024 XR CHEST 2 VIEWS STAT 11/16/2024 7:51 PM EDT TROPONIN I HIGH SENSITIVITY STAT 11/16/2024 7:10 PM EDT ACETAMINOPHEN LEVEL STAT Add-on 11/16/2024 6 :05 PM EDT CBC WITH AUTO DIFFERENTIAL STAT 11/16/2024 6:05 PM EDT B-TYPE NATRIURETIC PEPTIDE STAT 11/16/2024 6:05 PM EDT MAGNESIUM STAT 11/16/2024 6:05 PM EDT LIPASE STAT 11/16/2024 6:05 PM EDT COMPREHENSIVE METABOLIC PANEL STAT 11/16/2024 6:05 PM EDT CBC AND DIFFERENTIAL STAT 11/16/2024 6:05 PM EDT TROPONIN I HIGH SENSITIVITY STAT 11/16/2024 6:05 PM EDT ECG 12-LEAD STAT 11/16/2024 5:57 PM EDT ECG ANNOTATED 11/08/2024 XR CHEST 2 VIEWS STAT 11/03/2024 7:36 PM EDT ECG 12-LEAD STAT 11/03/2024 7:12 PM EDT TROPONIN I HIGH SENSITIVITY STAT 11/03/2024 7:11 PM EDT CBC WITH AUTO DIFFERENTIAL STAT 11/03/2024 6:10 PM EDT B-TYPE NATRIURETIC PEPTIDE STAT 11/03/2024 6:10 PM EDT MAGNESIUM STAT 11/03/2024 6:10 PM EDT LIPASE STAT 11/03/2024 6:10 PM EDT COMPREHENSIVE METABOLIC PANEL STAT 11/03/2024 6:10 PM EDT CBC AND DIFFERENTIAL STAT 11/03/2024 6:10 PM EDT TROPONIN I HIGH SENSITIVITY STAT 11/03/2024 6:10 PM EDT ECG 12-LEAD STAT 11/03/2024 6:02 PM EDT GERARDO SCREENING DIGITAL Routine 04/29/2022 1:05 PM EST Encounter for screening mammogram for malignant neoplasm of breast from Last 3 Months or Most Recently Relevant to Health Maintenance Results * CT Abdomen Pelvis w Contrast (11/24/2024 7:58 AM EDT) Anatomical Region Laterality Modality Body Computed Tomogra phy 11/24/2024 8:19 AM EDT Impressions 11/24/2024 8:30 AM EDT Gastric bypass. No bowel obstruction, abscess, or free air. Circumferential thickening of the distal esophagus, most likely inflammatory. Correlate for reflux and/or esophagitis. Hepatic steatosis. -------- FINAL REPORT -------- Dictated By: EDWIN HOLDER Dictated Date: 11/24/2024 08:19 ET Assigned Physician: EDWIN HOLDER Reviewed and Electronically Signed By: EDWIN HOLDER Signed Date: 11/24/2024 08:30 ET Workstation ID: [id number] Transcribed By: Self Edit Transcribed Date: 11/24/2024 08:19 ET Narrative 11/24/2024 8:30 AM EDT PROCEDURE: CT ABDOMEN/PELVIS INDICATION: Pain TECHNIQUE: CT of the abdomen and pelvis following the intravenous administration of 90cc Isovue 370. Multiplanar reformats. The examination was performed utilizing dose reduction techniques. Total DLP 1876 COMPARISON: 11/13/2022 FINDINGS: LOWER THORAX: Lung bases are clear. Circumferential thickening of the distal esophagus is similar compared to prior and likely inflammatory HEPATOBILIARY: Hepatic steatosis. Unchanged hypodensity along the right inferior liver. No new liver lesions. Cholecystectomy. No biliary duct dilatation. Cysts near the brayan hepatis is unchanged. SPLEEN: No splenomegaly. PANCREAS: No focal mass or ductal dilatation. ADRENALS: No nodules. KIDNEYS/URETERS: No hydronephrosis, stones, or solid mass. PELVIC ORGANS/BLADDER: Unremarkable. PERITONEUM / RETROPERITONEUM: No ascites or free air. No retroperitoneal lymphadenopathy. VESSELS: Portal vein is patent. Abdominal aorta is normal in size. GI TRACT: Gastric bypass. No bowel obstruction or wall thickening. Normal appendix. BONES AND SOFT TISSUES: Spinal cord stimulator generator in the left flank. Postoperative changes along the ventral abdominal wall. L5-S1 interbody fusion. Thoracic spinal cord stimulator lead posteriorly within the spinal canal. No acute fracture. Procedure Note Edwin Holder MD - 11/24/2024 PROCEDURE: CT ABDOMEN/PELVIS INDICATION: Pain TECHNIQUE: CT of the abdomen and pelvis following the intravenousadministration of 90cc Isovue 370. Multiplanar reformats. The examinationwas performed utilizing dose reduction techniques. Total DLP 1876 COMPARISON: 11/13/2022 FINDINGS: LOWER THORAX: Lung bases are clear. Circumferential thickening of thedistal esophagus is similar compared to prior and likely inflammatory HEPATOBILIARY: Hepatic steatosis. Unchanged hypodensity along the rightinferior liver. No new liver lesions. Cholecystectomy. No biliary ductdilatation. Cysts near the brayan hepatis is unchanged. SPLEEN: No splenomegaly. PANCREAS: No focal mass or ductal dilatation. ADRENALS: No nodules. KIDNEYS/URETERS: No hydronephrosis, stones, or solid mass. PELVIC ORGANS/BLADDER: Unremarkable. PERITONEUM / RETROPERITONEUM: No ascites or free air. No retroperitoneallymphadenopathy. VESSELS: Portal vein is patent. Abdominal aorta is normal in size. GI TRACT: Gastric bypass. No bowel obstruction or wall thickening.Normal appendix. BONES AND SOFT TISSUES: Spinal cord stimulator generator in the leftflank. Postoperative changes along the ventral abdominal wall. L5-[id number] fusion. Thoracic spinal cord stimulator lead posteriorly withinthe spinal canal. No acute fracture. IMPRESSION: Gastric bypass. No bowel obstruction, abscess, or free air. Circumferential thickening of the distal esophagus, most likelyinflammatory. Correlate for reflux and/or esophagitis. Hepatic steatosis. -------- FINAL REPORT -------- Dictated By: EDWIN HOLDER Dictated Date: 11/24/2024 08:19 ET Assigned Physician: EDWIN HOLDER Reviewed and Electronically Signed By: EDWIN HOLDER Signed Date: 11/24/2024 08:30 ET Workstation ID: [id number] Transcribed By: Self Edit Transcribed Date: 11/24/2024 08:19 ET Celso ARGUELLES IMG CT PROCEDURES Final Result * Urinalysis with reflex microscopic and culture (11/24/2024 7:38 AM EDT) Specific [place] Urine 1.012 1.003 - 1.030 LAB URINALYSIS - AUTOMATED METHOD 11/24/2024 7:52 AM [facility] pH, Urine 6.0 5.0 - 8.0 pH LAB URINALYSIS - AUTOMATED METHOD 11/24/2024 7:52 AM [facility] Leukocytes, Urine Negative Negative LAB URINALYSIS - AUTOMATED METHOD 11/24/2024 7:52 AM [facility] Nitrite, Urine Negative Negative LAB URINALYSIS - AUTOMATED METHOD 11/24/2024 7:52 AM [facility] Protein, Urine Negative <=Trace mg/dL LAB URINALYSIS - AUTOMATED METHOD 11/24/2024 7:52 AM [facility] Glucose, Urine Negative Negative mg/dL LAB URINALYSIS - AUTOMATED METHOD 11/24/2024 7:52 AM [facility] Ketones, Urine Negative Negative mg/dL LAB URINALYSIS - AUTOMATED METHOD 11/24/2024 7:52 AM [facility] Urobilinogen, Urine 0.2 0.2 - 1.0 mg/dL LAB URINALYSIS - AUTOMATED METHOD 11/24/2024 7:52 AM [facility] Bilirubin, Urine Negative Negative LAB URINALYSIS - AUTOMATED METHOD 11/24/2024 7:52 AM [facility] Blood, Urine Negative Negative LAB URINALYSIS - AUTOMATED METHOD 11/24/2024 7:52 AM [facility] Urine Urine specimen obtained by clean catch procedure / Unknown Non-blood Collection / Unknown 11/24/2024 7:38 AM EDT 11/24/2024 7:44 AM EDT Celso ARGUELLES LAB URINE ORDERABLES Final Resul t Performing Organization Address [facility]/ZIP Co de Phone Number [facility] [address] [place] [address], [place] [phone] * Kenny urine culture tube (11/24/2024 7:38 AM EDT) Extra Tube Hold for add-ons. 11/24/2024 9:01 AM EDT [facility] Comment:Auto resulted. Urine Urine specimen obtained by clean catch procedure / Unknown Non-blood Collection / Unknown 11/24/2024 7:38 AM EDT 11/24/2024 7:44 AM EDT Celso ARGUELLES LAB URINE ORDERABLES Final Resul t Performing Organization Address [facility] de Phone Number [facility] [address] [place] [address], [place] [phone] * (ABNORMAL) CBC auto differential (11/23/2024 9:16 PM EDT) Only the most recent of3 resultswithin the time period is included. WBC 10.6 4.8 - 10.8 K/[facility] LAB HEMETOLOGY METHOD 11/23/2024 11:16 PM EDT [facility] RBC 4.00 3.80 - 4.80 M/[facility] LAB HEMETOLOGY METHOD 11/23/2024 11:16 PM EDT [facility] Hemoglobin 10.9(L) 11.5 - 16.0 g/dL LAB HEMETOLOGY METHOD 11/23/2024 11:16 PM EDT [facility] Hematocrit 36.8 35.0 - 47.0 % LAB HEMETOLOGY METHOD 11/23/2024 11:16 PM T [facility] MCV 91.5 79.0 - 98.0 FL LAB HEMETOLOGY METHOD 11/23/2024 11:16 PM [facility] MCH 27.1 27.0 - 32.0 pcg LAB HEMETOLOGY METHOD 11/23/2024 11:16 PM [facility] MCHC 29.6(L) 32.0 - 37.0 g/dL LAB HEMETOLOGY METHOD 11/23/2024 11:16 PM [facility] RDW 14.7 11.0 - 15.0 % LAB HEMETOLOGY METHOD 11/23/2024 11:16 PM [facility] Platelets 150 130 - 400 K/mcL LAB HEMETOLOGY METHOD 11/23/2024 11:16 PM [facility] MPV 10.9 7.0 - 11.0 FL LAB HEMETOLOGY METHOD 11/23/2024 11:16 PM [facility] NRBC 0.0 <1.0 % LAB HEMETOLOGY METHOD 11/23/2024 11:16 PM [facility] NRBC Absolute 0.00 <0.10 K/mcL LAB HEMETOLOGY METHOD 11/23/2024 11:16 PM [facility] Neutrophils Relative 66.9 % LAB HEMETOLOGY METHOD 11/23/2024 11:16 PM [facility] Lymphocytes Relative 26.6 % LAB HEMETOLOGY METHOD 11/23/2024 11:16 PM [facility] Monocytes Relative 4.0 % LAB HEMETOLOGY METHOD 11/23/2024 11:16 PM [facility] Eosinophils Relative 1.5 % LAB HEMETOLOGY METHOD 11/23/2024 11:16 PM [facility] Basophils Relative 0.2 % LAB HEMETOLOGY METHOD 11/23/2024 11:16 PM EDT [facility] Immature Granulocytes Relative 0.8 % LAB HEMETOLOGY METHOD 11/23/2024 11:16 PM EDT [facility] Neutrophils Absolute 7.08(H) 1.50 - 7.00 K/mcL LAB HEMETOLOGY METHOD 11/23/2024 11:16 PM EDT [facility] Lymphocytes Absolute 2.81 1.00 - 5.00 K/mcL LAB HEMETOLOGY METHOD 11/23/2024 11:16 PM EDT [facility] Monocytes Absolute 0.42 0.20 - 1.00 K/mcL LAB HEMETOLOGY METHOD 11/23/2024 11:16 PM EDT [facility] Eosinophils Absolute 0.16 0.00 - 0.50 K/mcL LAB HEMETOLOGY METHOD 11/23/2024 11:16 PM EDT [facility] Basophils Absolute 0.02 0.00 - 0.20 K/mcL LAB HEMETOLOGY METHOD 11/23/2024 11:16 PM EDT [facility] Immature Granulocytes Absolute 0.08(H) 0.00 - 0.03 K/mcL LAB HEMETOLOGY METHOD 11/23/2024 11:16 PM EDT [facility] Blood Venous blood specimen / Unknown Venipuncture / Unknown 11/23/2024 9:16 PM EDT 11/23/2024 11:06 PM EDT us Jose Alfredo Hernandez DO LAB BLOOD ORDERABLES Final Res ult [facility] [address] [place] [address], * hCG Qualitative (11/23/2024 9:16 PM EDT) hCG Qual Negative Negative 11/24/2024 7:33 AM EDT [facility] Blood Venous blood specimen / Unknown Venipuncture / Unknown 11/23/2024 9:16 PM EDT 11/23/2024 11:06 PM EDT Celso Clemons PA LAB BLOOD ORDERABLES Final Resul t Performing Organization Address [facility]/ZIP Co de Phone Number [facility] [address] [place] [address], [place] [phone] * Lipase (11/23/2024 9:16 PM EDT) Only the most recent of3 resultswithin the time period is included. Lipase 18 13 - 75 unit/L LAB CHEMISTRY METHOD 11/23/2024 11:40 PM EDT [facility] Blood Venous blood specimen / Unknown Venipuncture / Unknown 11/23/2024 9:16 PM EDT 11/23/2024 11:06 PM EDT Jose Alfredo Hernandez DO LAB BLOOD ORDERABLES Final Res ult Performing Organization Address [facility] de Phone Number [facility] [address] [place] [address], [place] [phone] * (ABNORMAL) Comprehensive metabolic panel (11/23/2024 9:16 PM EDT) Only the most recent of3 resultswithin the time period is included. Sodium 142 133 - 145 mmol/L LAB CHEMISTRY METHOD 11/23/2024 11:46 PM EDT [facility] Potassium 4.7 3.5 - 5.5 mmol/L LAB CHEMISTRY METHOD 11/23/2024 11:46 PM EDT [facility] Chloride 110 96 - 110 mmol/L LAB CHEMISTRY METHOD 11/23/2024 11:46 PM EDT [facility] CO2 26 21 - 32 mmol/L LAB CHEMISTRY METHOD 11/23/2024 11:46 PM [facility] Anion Gap 6 3 - 11 LAB CHEMISTRY METHOD 11/23/2024 11:46 PM [facility] Glucose 86 70 - 100 mg/dL LAB CHEMISTRY METHOD 11/23/2024 11:46 PM [facility] BUN 13 5 - 25 mg/dL LAB CHEMISTRY METHOD 11/23/2024 11:46 PM [facility] Creatinine 0.81 0.50 - 1.10 mg/dL LAB CHEMISTRY METHOD 11/23/2024 11:46 PM [facility] eGFR 85 >=60 mL/min/1. 73m2 LAB CHEMISTRY METHOD 11/23/2024 11:46 PM [facility] Comment:Calculation based on the Chronic Kidney Disease Epidemiology Collaboration (CKD-EPI) equation refit without adjustment for race. BUN/Creatinine Ratio 16.0 LAB CHEMISTRY METHOD 11/23/2024 11:46 PM [facility] Calcium 7.6(L) 8.5 - 10.5 mg/dL LAB CHEMISTRY METHOD 11/23/2024 11:46 PM [facility] AST (SGOT) 16 10 - 42 unit/L LAB CHEMISTRY METHOD 11/23/2024 11:46 PM [facility] ALT (SGPT) 75(H) 10 - 60 unit/L LAB CHEMISTRY METHOD 11/23/2024 11:46 PM [facility] Alkaline Phosphatase 285(H) 42 - 121 unit/L LAB CHEMISTRY METHOD 11/23/2024 11:46 PM [facility] Total Protein 6.3 6.0 - 8.0 g/dL LAB CHEMISTRY METHOD 11/23/2024 11:46 PM [facility] Albumin 3.1(L) 3.2 - 5.0 g/dL LAB CHEMISTRY METHOD 11/23/2024 11:46 PM [facility] Total Bilirubin <0.1 0.0 - 1.4 mg/dL LAB CHEMISTRY METHOD 11/23/2024 11:46 PM EDT [facility] Blood Venous blood specimen / Unknown Venipuncture / Unknown 11/23/2024 9:16 PM EDT 11/23/2024 11:06 PM EDT us Jose Alfredo Hernandez DO LAB BLOOD ORDERABLES Final Res ult [facility] [address] [place] [address], [place] [phone] * ECG-Annotated (11/21/2024) Only the most recent of2 resultswithin the time period is included. us Provider Onbase ECG ORDERABLES Final Result * XR Chest 2 Views (11/16/2024 7:51 PM EDT) Only the most recent of2 resultswithin the time period is included. Anatomical Region Laterality Modality Body Radiographic Yuliana ging 11/16/2024 10:1 9 PM EDT Impressions 11/16/2024 10:20 PM EDT FINDINGS/IMPRESSION: Hypoventilatory examination without consolidation or effusion. No congestive heart failure. Possible nodule at the right lung apex. Epidural stimulator leads and cholecystectomy clips. -------- FINAL REPORT -------- Dictated By: Nimo Leal Dictated Date: 11/16/2024 22:19 ET Assigned Physician: Nimo Leal Reviewed and Electronically Signed By: Nimo Leal Signed Date: 11/16/2024 22:20 ET Workstation ID: [id number] Transcribed By: Self Edit Transcribed Date: 11/16/2024 22:19 ET Narrative 11/16/2024 10:20 PM EDT XR CHEST 2 VIEWS INDICATION: chest pain TECHNIQUE: XR CHEST 2 VIEWS COMPARISON: No priors available. Procedure Note Nmio Leal MD - 11/16/2024 XR CHEST 2 [...] Signed Date: 11/16/2024 22:20 ET Workstation ID: [id number] Transcribed By: Self Edit Transcribed Date: 11/16/2024 22:19 ET us Bhakti ARGUELLES IMG XR PROCEDURES Final Re sult * Troponin I high sensitivity (11/16/2024 7:10 PM EDT) Only the most recent of4 resultswithin the time period is included. [facility] High Sensitivity Troponin I 3 <=54 ng/L LAB CHEMISTRY METHOD 11/16/2024 8:30 PM EDT [facility] Blood Venous blood specimen / Unknown Venipuncture / Unknown 11/16/2024 7:10 PM EDT 11/16/2024 7:44 PM EDT Narrative [facility] - 11/16/2024 8:30 PM EDT High levels of biotin in samples may falsely decrease hsTroponin values. Use caution when interpreting hsTroponin results in patients taking biotin who exhibit renal impairment (eGFR <60) or in patients taking more than 20 mg/day of biotin. us Bhakti ARGUELLES LAB BLOOD ORDERABLES Final Result [facility] [address] [place] [address], * B-type natriuretic peptide (11/16/2024 6:05 PM EDT) Only the most recent of2 resultswithin the time period is included. Pathologist [facility] BNP 10 <=100 pcg/mL LAB CHEMISTRY METHOD 11/16/2024 7:33 PM EDT [facility] Blood Venous blood specimen / Unknown Venipuncture / Unknown 11/16/2024 6:05 PM EDT 11/16/2024 6:19 PM EDT Bhakti ARGUELLES LAB BLOOD ORDERABLES Final Result [facility] [address] [place] [address], [place] [phone] * Magnesium (11/16/2024 6:05 PM EDT) Only the most recent of2 resultswithin the time period is included. Magnesium 2.2 1.9 - 2.6 mg/dL LAB CHEMISTRY METHOD 11/16/2024 6:53 PM EDT [facility] Blood Venous blood specimen / Unknown Venipuncture / Unknown 11/16/2024 6:05 PM EDT 11/16/2024 6:19 PM EDT Bhakti ARGUELLES LAB BLOOD ORDERABLES Final Result Performing Organization Address [facility] de Phone Number [facility] [address] [place] [address], [place] [phone] * (ABNORMAL) Acetaminophen level (11/16/2024 6:05 PM EDT) Acetaminophen Level <2.0(L) 10.0 - 30.0 mcg/mL LAB CHEMISTRY METHOD 11/16/2024 9:05 PM EDT [facility] Blood Venous blood specimen / Unknown Venipuncture / Unknown 11/16/2024 6:05 PM EDT 11/16/2024 6:19 PM EDT Bhakti ARGUELLES LAB BLOOD ORDERABLES Final Result [facility] [address] [place] [address], * ECG 12 lead (11/16/2024 5:57 PM EDT) Only the most recent of3 resultswithin the time period is included. Ventricular Rate ECG 72 BPM GEMUSE Atrial Rate 72 BPM GEMUSE P-R Interval 124 ms GEMUSE QRS Duration 84 ms GEMUSE Q-T Interval 410 ms GEMUSE QTc 448 ms GEMUSE P Wave [place] 51 degrees GEMUSE R [place] -2 degrees GEMUSE T [place] 12 degrees GEMUSE ECG Interpretation Normal sinus rhythm Moderate voltage criteria for LVH, may be normal variant When compared with ECG of 03-NOV-2024 19:12, No significant change was found Confirmed by EDWAR COSTELLO ([id number]) on 11/17/2024 8:30:19 AM GEMUSE 11/16/2024 5:57 PM EDT 11/17/2024 8:30 AM EDT us Bhakti ARGUELLES ECG ORDERABLES Final Resu lt GEMUSE * GERARDO SCREENING DIGITAL (04/29/2022 1:05 PM EST) Anatomical Region Laterality Modality Mammography 04/29/2022 11:0 5 AM EST Narrative 04/29/2022 1:05 PM EST [facility] Diagnostic Imaging Department [address] [place] [address] Patient: RAFAL WARE D.O.B./Age/Sex: 1965 - 56 - F Unit#: [id number] Location/Status: [facility] CLI Mnemonic/Ordering Site: [facility] Ordering Physician: CARRI NUNEZ MD Gerardo Screening Digital - 04/29/22 - 1138 INDICATION: SCREENING COMPARISON: [facility] mammograms dating back to 11/22/2014 TECHNIQUE: CC and MLO views of the breasts were obtained, using full field digital mammography with 3D tomosynthesis views in the MLO projection. Computer aided detection with the [employer] 7.2-H was employed. FINDINGS: The breasts contain heterogeneously dense tissues, which may lower sensitivity of mammography in this patient. No suspicious masses, suspicious microcalcifications, or areas of architectural distortion are identified. There are no secondary signs of breast malignancy. Rare benign-appearing breast calcifications are present bilaterally. IMPRESSION: No specific mammographic evidence of breast malignancy. Lack of an imaging correlate should not deter or delay biopsy of a clinically significant palpable finding. BI-RADS - Category 2 - Benign finding 3342F, 7025F Annual screening mammography is recommended. Patient entered into a reminder system with a target date for the next mammogram. [id number]) , [id number] Dictating Physician: AMAN LENNON MD Electronically Signed by: AMAN LENNON MD Dic Date/Time: 04/29/22 1302 Sign date/Time: 04/29/22 1305 Procedure Note Aman Lennon MD - 07/16/2023 [facility] Diagnostic Imaging Department [address] [place], [place] [id number] Patient: RAFAL WARE D.O.B./Age/Sex: 1965 - 56 - F Unit#: [id number] Location/Status: SPDIMAM/REG CLI Mnemonic/Ordering Site: [facility] Ordering Physician: CARRI NUNEZ MD Gerardo Screening Digital - 04/29/22 - 1138 INDICATION: SCREENING COMPARISON: [facility] mammograms dating back to 11/22/2014 TECHNIQUE: CC and MLO views of the breasts were obtained, using full field digital mammography with 3D tomosynthesis views in the MLO projection. Computer aided detection with the Buyapowa 7.2-H was employed. FINDINGS: The breasts contain [...] a target date for the next mammogram. 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
== END 2024-12-19 11:35 | disposition home or self-care (01) ==
LOC: HO.HBS 10:43
PROVIDERS: PCP Internal Medicine; Visit Provider Physician Assistant Surgical
DX: E66.9 Obesity, unspecified (principal); Z98.84 Bariatric surgery status
CPT/HCPCS: 99214

== ENCOUNTER → 2024-12-19 10:42 | Outpatient (BNVA) | payer MEDICAID, SELFPAY | PROVIDERS: PCP Internal Medicine; Visit Provider Physician Assistant Surgical | DX: E66.9 Obesity, unspecified (principal); Z68.41 Body mass index [BMI] 40.0-44.9, adult; Z98.84 Bariatric surgery status; Z98.890 Other specified postprocedural states | CPT/HCPCS: 99212 ==

== ENCOUNTER 2025-01-15 09:57 | Outpatient (AMB) | payer MEDICAID, SELFPAY ==
--- NOTE | 2025-01-15 10:00 | A.OFFVIS_ITS ---
Vital Signs 01/15/25 10:11 Height 5 ft 6 in Weight 250 lb BMI 40.3 BP 122/84 Blood Pressure Location Rt brachial Position Sitting Pulse 82 Pulse Source Pulse Oximeter Pulse Oximetry (%) 100 Oxygen Delivery Method Room Air Intake Visit Reasons: 6 mo discuss colo and endo Intake Note: Est pt for constipation mgmt. CT done. CC; C.O. esophageal concerns after being seen at the ED @ [facility]. Pt states that her CT scan showed certain esophageal findings per the provider in the ED. Notes printed and provided to ENGINEERING CLERK. Shop Mechanic Required: No Accompanied by: Self / Same As Patient Allergies amoxicillin Allergy (Severe, Verified 01/15/25 10:00) yeast infection, itching gabapentin Allergy (Severe, Verified 01/15/25 10:00) Swelling meloxicam Allergy (Severe, Verified 01/15/25 10:00) Swelling baclofen Allergy (Intermediate, Verified 01/15/25 10:00) Swelling, sob lamotrigine Allergy (Unknown, Verified 01/15/25 10:00) Swelling HPI HPI 6 mo discuss colo and endo: Details: LAST VISIT Constipation Abdominal pain GERD (gastroesophageal reflux disease) Plan Continue pantoprazole daily. Avoid dietary triggers and late night snacking. Staying upright for minimum 3 hours after meals discussed with patient. Increase Linzess to 290 daily. Increase fluid intake and activity to promote better bowel motility. Patient reports abdominal pain. Will order CT scan. Patient has tender area around her surgical scar on her upper abdomen. Patient will follow-up in 6 months and we will discuss going for colonoscopy. She is agreeable to this plan and verbalizes understanding of instructions. She was given the opportunity to ask questions and all questions answered. ? Thank you for allowing me to participate in her care Orders CT abdomen pelvis w IV con Today R10.9 Blood Urea Nitrogen Today R10.11 Creatinine Today R10.11 New linaclotide (Linzess) 290 mcg PO QAM 30 caps 4RF K59.00 TODAY'S VISIT Patient is here today for follow-up. Patient recently seen at [facility] for epigastric pain and discomfort. Reviewing patient's records. ED REPORT FROM 12/01/2024 [facility]: Patient was reporting 3 days of right upper quadrant abdominal pain radiating to her back and down towards her hip. Patient reported associated nausea and diarrhea without vomiting, fevers, chills, chest pain, SOB, hematochezia, melena, dysuria or hematuria. Patient reported frequent urination and high concentrated urine. Patient was also reporting right knee pain. Labs reviewed. Increased ALT and alk phosphate. No leukocytosis normal lipase. CT scan showed no bowel obstruction, abscess or free air. Circumferential thickening of the distal esophagus most likely inflammatory, hepatic steatosis. Today patient continues to have right lumbar pain. Pain is not related to meals. Currently patient is taking senna. Linzess script was not refilled. Patient reports that she still is constipated. Patient reports epigastric pain and discomfort. Patient is taking pantoprazole, however states that no longer is effective. Patient denies any nausea or vomiting. Postprandial abdominal bloating. Reports occasional dyspepsia without dysphagia or odynophagia. Patient denies any melena, hematochezia, unintentional weight loss or ribbon like stools. Patient had suboptimal prep on colonoscopy in June of 2023 and was recommended for 1-2 year recall [facility] Medical History Major depressive disorder, recurrent CVA (cerebral vascular accident) Seizure Personal history of nicotine dependence Cervicalgia Chronic migraine without aura, intractable, without status migrainosus History of low back pain Hx of myocardial infarction (~11/2022) Hx of migraines CKD (chronic kidney disease) History of blood transfusion (~04/2023) Weakness of both legs History of seizures Internal hernia Excess skin of upper extremity Lipoma History of lipoma Sleep apnea with use of continuous positive airway pressure (CPAP) Hypercholesterolemia Type 2 diabetes mellitus Anemia Lymphedema Migraines Anxiety Back pain Arthritis Carpal tunnel syndrome Body mass index (BMI) of 32.0-32.9 in adult Obesity (BMI 30-39.9) Intestinal malabsorption following gastrectomy H/O nephrolithotomy with removal of calculi Surgical History Hx of cataract surgery S/P brachioplasty S/P panniculectomy History of dental surgery (~06/2023) H/O hernia repair History of gastric surgery Hx of colonoscopy Hx of lumpectomy H/O cervical discectomy History of Zane-en-Y gastric bypass S/P carpal tunnel release Hx of section S/P knee replacement History of back surgery Family History Father No problems noted. Mother Arthritis Brother No problems noted. Brother No problems noted. Sister No problems noted. Sister No problems noted. Sister No problems noted. Sister No problems noted. Son No problems noted. Daughter No problems noted. 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 Caregiver staying overnight: No Housing: House Are you a primary acute care clinical nurse specialist to a significant other at home: No Do you presently have visiting nurse or other home services: Yes ([employer] WORK[employer] 4 hrs/day) Alcohol intake: former Patient Tobacco Use Status: Former Tobacco user Tobacco use type: Cigarette Years Smoked: (former smoker 20pyh quit 2018) Advance Directives Date on File: 07/04/21 service: No Current occupational status: disabled Review of Systems Const Denies weight gain and Denies weight loss ENT Reports no additional complaints, Denies dysphagia and Denies odynophagia Card Reports no additional complaints Resp Reports no additional complaints GI Reports abdominal pain (epigastric), Denies belching, Denies melena, Reports bloating, Denies change in bowel habits, Reports constipation, Denies dysphagia, Denies excessive flatus, Denies dyspepsia, Denies heartburn, Denies diarrhea, Denies loose stools, Denies nausea, Denies odynophagia and Denies vomiting Reports no additional complaints Musc Reports no additional complaints Neuro Reports no additional complaints Psych Reports no additional complaints Endo Reports no additional complaints Physical Exam Vital Signs: Last Vital Signs Pulse 82 01/15/25 10:11 BP 122/84 01/15/25 10:11 Pulse Ox 100 01/15/25 10:11 Oxygen Delivery Method Room Air 01/15/25 10:11 BMI result Body Mass Index 40.3 Const Other: Ambulating using a wheeled walker General: healthy appearing and no acute distress Nutritional Appearance: obese Orientation/consciousness: patient oriented x3 Resp Effort & Inspection: normal respiratory effort, able to speak in complete sentences, no tracheal deviation and symmetric chest movement Auscultation: clear to auscultation bilaterally Cardio Rate: regular rate GI Other: surgical scar Inspection: No distended Palpation (GI): Soft to palpation, not firm, Tenderness to palpation present (GI) (Above umbilical area) and No hepatosplenomegaly present Auscultation: normal bowel sounds General: Yes no CVA tenderness Back/Spine/Pelvis Back: no CVA tenderness Skin General skin exam: elasticity normal, turgor normal and dry skin Neuro General: patient oriented x3 Psych Appearance: grossly normal Mental Status: mental status grossly normal Results Reviewed Results Reviewed: CT OF ABDOMEN AND PELVIS 09/12/2024 Findings: No consolidation or effusion. Cholecystectomy clips are present. Solid organs are within normal limits. No bowel obstruction, pneumoperitoneum, or pneumatosis. Gastric bypass has been performed. Pelvic contents unremarkable. Normal appendix. The bones are intact. IMPRESSION: No acute findings. Assessment & Plan Assessment & Plan (1) Abdominal pain: Code(s): R10.9 - Unspecified abdominal pain Category: Medical Qualifiers: Abdominal location: epigastric Qualified Code(s): R10.13 - Epigastric pain (2) Constipation: Code(s): K59.00 - Constipation, unspecified Category: Medical Qualifiers: Constipation type: slow transit constipation Qualified Code(s): K59.01 - Slow transit constipation (3) Partial small bowel obstruction: Code(s): K56.600 - Partial intestinal obstruction, unspecified as to cause Category: Medical (4) Gastroesophageal reflux disease: Code(s): K21.9 - Gastro-esophageal reflux disease without esophagitis Qualifiers: Esophagitis presence: esophagitis presence not specified Qualified Code(s): K21.9 - Gastro-esophageal reflux disease without esophagitis Plan Will change PPI. Patient will start taking Nexium 40 mg daily. Patient will take famotidine at bedtime. Avoid dietary triggers and late night snacking. Staying upright for minimum 3 hours after meals discussed with patient. Patient will start taking Linzess 145 mcg daily. Increase fluid intake and activity to promote better bowel motility. Patient will return in 2 months. We will discuss going for colonoscopy. Patient might be sent for upper endoscopy if her symptoms persist. Patient is agreeable to this plan and verbalizes understanding of instructions. He was given the opportunity to ask questions and all questions answered. Thank you for allowing me to participate in her care Medications: New famotidine (Pepcid) 20 mg PO BEDTIME 30 tabs 3RF K21.9 - Gastro-esophageal reflux disease without esophagitis esomeprazole magnesium (Nexium) 40 mg PO DAILY 30 caps 2RF K21.9 - Gastro- esophageal reflux disease without esophagitis linaclotide (Linzess) 145 mcg PO DAILY 30 caps 2RF Discontinued pantoprazole Discontinued Reason: Doctor's Order 40 mg PO DAILY 90 days 90 tabs 4RF sennosides Discontinued Reason: Doctor's Order 17.2 mg (2 x 8.6 mg) PO BEDTIME 60 tabs 5RF constipation K59.00 - Constipation, unspecified Coding Level of Care Code Est Pt Level 4 (22390) Complex EM visit Add On G2211 Diagnoses Abdominal pain R10.13 Abdominal location: epigastric Slow transit constipation K59.01 Constipation type: slow transit constipation Partial small bowel obstruction K56.600 Gastroesophageal reflux disease, unspecified whether esophagitis present K21.9 Esophagitis presence: esophagitis presence not specified Time Spent (min) 40 Comment 25 minutes spent with patient and additional 15 minutes spent reviewing her records
[2025-01-15 10:11] VITALS: BP 122/84; PULSE 82; O2SAT 100; BMI 40.3
--- OUTSIDE RECORDS SUMMARY | 2025-01-15 10:37 | XMS_ITS | Clinical Summary ---
Author Organization [facility] Address [address] [place] [address] Phone Care Team Providers Care Aquatic Performer Name Role Phone Carri Nunez MD Primary Care Provider [phone] Allergies Active Allergy Reactions Criticality Noted Date [...] chew. 60 each 5 12/25/19 25 Active Problems No known active problems Encounters Date Type Department Care Team Description 11/24/2024 4:16 AM EDT - 11/24/2024 9:38 AM EDT Emergency [facility] Emergency [address] [place] [address] Esophagitis (Primary Dx) Discharge Disposition: Home or Self Care 11/16/2024 4:27 PM EDT - 11/16/2024 10:09 PM EDT Emergency [facility] Emergency [address] [place] [address] Chest wall pain (Primary Dx); Elevated liver transaminase level; Right sciatic nerve pain Discharge Disposition: Home or Self Care 11/03/2024 11:04 PM EDT - 11/04/2024 2:39 AM EDT Emergency [facility] Emergency [address] [place] [address] Nadya Goncalves MD Atypical pneumonia (Primary Dx); Costochondral chest pain Discharge Disposition: Home or Self Care from Last 3 Months Surgical History Surgery Date Site/Laterality Comments BACK SURGERY 1999 PROCEDURE: HISTORICAL BACK SURGERY; COMMENT: L5 fusion Dr Issa at [facility] GASTRIC BYPASS PROCEDURE: GASTRIC BYPASS FOR OBESIT; COMMENT: performed one yr ago COLONOSCOPY PROCEDURE: HISTORICAL COLONOSCOPY COLONOSCOPY PROCEDURE: HISTORICAL COLONOSCOPY; COMMENT: Performed on November 28, 2020 HERNIA REPAIR PROCEDURE: UT REPAIR FIRST ABDOMINAL WALL HERNIA Medical History [...] Panel) 05/23/2022 Colorectal Cancer Screening: Colonoscopy 05/23/2022 HIV Screening 05/23/2022 Hepatitis C Screening 05/23/2022 Social Influencers of Health Screening 05/23/2022 COVID-19 Vaccine ( season) 2024 07/10/2023, 12/23/2021, 03/31/2021, Additional history exists Breast Cancer Screening 04/29/2024 04/29/20 22, 04/22/2021, 03/12/2020, Additional history exists Depression Screening 06/14/2024 Influenza Vaccine (#1) 2025 , 05/23/2022, 03/31/2021, Additional history exists Hypertension/CHF/CAD Annual BMP Blood Test 11/23/2025 11/23/2024, 11/16/2024, 11/03/2024, Additional history exists DTaP,Tdap,and Td Vaccines (5 - Td or Tdap) 05/23/2032 05/23/2022, 12/24/2021, 05/14/2017, Additional history exists Zoster Vaccines Completed 12/23/2021, 1202/2020, 03/16/2020 HIB Vaccines Aged Out No longer [...] -------- FINAL REPORT -------- Dictated By: EDWIN AC Dictated Date: 11/24/2024 08:19 ET Assigned Physician: EDWIN AC Reviewed and Electronically Signed By: EDWIN AC Signed Date: 11/24/2024 08:30 ET Workstation ID: [id number] Transcribed By: Self Edit Transcribed Date: 11/24/2024 [...] canal. No acute fracture. Procedure Note Edwin Ac MD - 11/24/2024 PROCEDURE: CT ABDOMEN/PELVIS INDICATION: [...] Postoperative changes along the ventral abdominal wall. L5-[id number] fusion. Thoracic spinal cord stimulator lead posteriorly withinthe spinal canal. No acute fracture. IMPRESSION: Gastric bypass. No bowel obstruction, abscess, or free air. Circumferential thickening of the distal esophagus, most likelyinflammatory. Correlate for reflux and/or esophagitis. Hepatic steatosis. -------- FINAL REPORT -------- Dictated By: EDWIN AC Dictated Date: 11/24/2024 08:19 ET Assigned Physician: EDWIN AC Reviewed and Electronically Signed By: EDWIN AC Signed Date: 11/24/2024 08:30 ET Workstation ID: [id number] Transcribed By: Self Edit Transcribed Date: 11/24/2024 08:19 ET Celso ARGUELLES [facility] CT PROCEDURES Final Result * Urinalysis with reflex microscopic and culture (11/24/2024 7:38 AM EDT) [facility] Specific Tracy Urine 1.012 1.003 - 1.030 LAB URINALYSIS - AUTOMATED METHOD 11/24/2024 7:52 AM [facility] pH, Urine 6.0 5.0 - 8.0 pH LAB URINALYSIS - AUTOMATED METHOD 11/24/2024 7:52 AM [facility] Leukocytes, Urine Negative Negative LAB URINALYSIS - AUTOMATED METHOD 11/24/2024 7:52 AM [facility] Nitrite, Urine Negative Negative LAB URINALYSIS - AUTOMATED METHOD 11/24/2024 7:52 AM [facility] Protein, Urine Negative <=Trace mg/dL LAB URINALYSIS - AUTOMATED METHOD 11/24/2024 7:52 AM [facility] Glucose, Urine Negative Negative mg/dL LAB URINALYSIS - AUTOMATED METHOD 11/24/2024 7:52 AM [facility] Ketones, Urine Negative Negative mg/dL LAB URINALYSIS - AUTOMATED METHOD 11/24/2024 7:52 AM [facility] Urobilinogen, Urine 0.2 0.2 - 1.0 mg/dL LAB URINALYSIS - AUTOMATED METHOD 11/24/2024 7:52 AM [facility] Bilirubin, Urine Negative Negative LAB URINALYSIS - AUTOMATED METHOD 11/24/2024 7:52 AM [facility] Blood, Urine Negative Negative LAB URINALYSIS - AUTOMATED METHOD 11/24/2024 7:52 AM [facility] Urine Urine specimen obtained by clean catch procedure / Unknown Non-blood Collection / Unknown 11/24/2024 7:38 AM EDT 11/24/2024 7:44 AM EDT us Celso ARGUELLES LAB URINE ORDERABLES Final Resul t [facility] [address] [place] [address], [place] [phone] * Kenny urine culture tube (11/24/2024 7:38 AM EDT) [facility] Extra Tube Hold for add-ons. 11/24/2024 9:01 AM EDT [facility] Comment:Auto resulted. Urine Urine specimen obtained by clean catch procedure / Unknown Non-blood Collection / Unknown 11/24/2024 7:38 AM EDT 11/24/2024 7:44 AM EDT us Celso ARGUELLES LAB URINE ORDERABLES Final Resul t [facility] [address] [place] [address], [place] [phone] * (ABNORMAL) CBC auto differential (11/23/2024 9:16 PM EDT) Only the most recent of3 resultswithin the time period is included. [facility] WBC 10.6 4.8 - 10.8 K/mcL LAB HEMETOLOGY METHOD 11/23/2024 11:16 PM EDT [facility] RBC 4.00 3.80 - 4.80 M/mcL LAB HEMETOLOGY METHOD 11/23/2024 11:16 PM EDT [facility] Hemoglobin 10.9(L) 11.5 - 16.0 g/dL LAB HEMETOLOGY METHOD 11/23/2024 11:16 PM EDT [facility] Hematocrit 36.8 35.0 - 47.0 % LAB HEMETOLOGY METHOD 11/23/2024 11:16 PM EDT [facility] MCV 91.5 79.0 - 98.0 FL LAB HEMETOLOGY METHOD 11/23/2024 11:16 PM EDT [facility] MCH 27.1 27.0 - 32.0 pcg LAB HEMETOLOGY METHOD 11/23/2024 11:16 PM EDT [facility] MCHC 29.6(L) 32.0 - 37.0 g/dL LAB HEMETOLOGY METHOD [facility] RDW 14.7 11.0 - 15.0 % LAB HEMETOLOGY METHOD 11/23/2024 11:16 PM [facility] Platelets 150 130 - 400 K/mcL LAB HEMETOLOGY METHOD 11/23/2024 11:16 PM EDT [facility] MPV 10.9 7.0 - 11.0 FL LAB HEMETOLOGY METHOD 11/23[facility]2024 11[facility] NRBC 0.0 <1.0 % LAB HEMETOLOGY METHOD 11/23/2024 11:16 PM [facility] NRBC Absolute 0.00 <0.10 K/mcL LAB HEMETOLOGY METHOD 11/23/2024 11:16 PM [facility] Neutrophils Relative 66.9 % LAB HEMETOLOGY METHOD 11/23/2024 11:16 PM [facility] Lymphocytes Relative 26.6 % LAB HEMETOLOGY METHOD 11/23/2024 11:16 PM [facility] Monocytes Relative 4.0 % LAB HEMETOLOGY METHOD 11/23/2024 11:16 PM [facility] Eosinophils Relative 1.5 % LAB HEMETOLOGY METHOD 11/23/2024 11:16 PM [facility] Basophils Relative 0.2 % LAB HEMETOLOGY METHOD 11/23[facility]2024 11:[facility] Immature Granulocytes Relative 0.8 % LAB HEMETOLOGY METHOD 11/23/2024 11:16 PM [facility] Neutrophils Absolute 7.08(H) 1.50 - 7.00 K/mcL LAB HEMETOLOGY METHOD 11/23/2024 11:16 PM EDT [facility] Lymphocytes Absolute 2.81 1.00 - 5.00 K/mcL LAB HEMETOLOGY METHOD 11/23/2024 11:16 PM EDT [facility] Monocytes Absolute 0.42 0.20 - 1.00 K/[facility] LAB HEMETOLOGY METHOD 11/23/2024 11:16 PM EDT [facility] Eosinophils Absolute 0.16 0.00 - 0.50 K/[facility] LAB HEMETOLOGY METHOD 11/23/2024 11:16 PM EDT [facility] Basophils Absolute 0.02 0.00 - 0.20 K/[facility] LAB HEMETOLOGY METHOD 11/23/2024 11:16 PM EDT [facility] Immature Granulocytes Absolute 0.08(H) 0.00 - 0.03 K/[facility] LAB HEMETOLOGY METHOD 11/23/2024 11:16 PM EDT [facility] Blood Venous blood specimen / Unknown Venipuncture / Unknown 11/23/2024 9:16 PM EDT 11/23/2024 11:06 PM EDT us Jose Alfredo Hernandez DO LAB BLOOD ORDERABLES Final Res ult [facility] [address] [place] [address], [place] [phone] * hCG Qualitative (11/23/2024 9:16 PM EDT) hCG Qual Negative Negative 11/24/2024 7:33 AM EDT [facility] Blood Venous blood specimen / Unknown Venipuncture / Unknown 11/23/2024 9:16 PM EDT 11/23/2024 11:06 PM EDT us Celso ARGUELLES LAB BLOOD ORDERABLES Final Resul t [facility] [address] [place] [address], [place] [phone] * Lipase (11/23/2024 9:16 PM EDT) Only the most recent of3 resultswithin the time period is included. Lipase 18 13 - 75 unit/L LAB CHEMISTRY METHOD 11/23/2024 11:40 PM EDT [facility] Blood Venous blood specimen / Unknown Venipuncture / Unknown 11/23/2024 9:16 PM EDT 11/23/2024 11:06 PM EDT Jose Alfredo Hernandez DO LAB BLOOD ORDERABLES Final Res ult [facility] [address] [place] [address], [place] [phone] * (ABNORMAL) Comprehensive metabolic panel (11/23/2024 9:16 PM EDT) Only the most recent of3 resultswithin the time period is included. Sodium 142 133 - 145 mmol/L LAB CHEMISTRY METHOD 11/23/2024 11:46 PM [facility] Potassium 4.7 3.5 - 5.5 mmol/L LAB CHEMISTRY METHOD 11/23/2024 11:46 PM [facility] Chloride 110 96 - 110 mmol/L LAB CHEMISTRY METHOD 11/23/2024 11:46 PM T [facility] CO2 26 21 - 32 mmol/L LAB CHEMISTRY METHOD 11/23/2024 11:46 PM [facility] Anion Gap 6 3 - 11 LAB CHEMISTRY METHOD 11/23/2024 11:46 PM [facility] Glucose 86 70 - 100 mg/dL LAB CHEMISTRY METHOD 11/23/2024 11:46 PM [facility] BUN 13 5 - 25 mg/dL LAB CHEMISTRY METHOD 11/23/2024 11:46 PM [facility] Creatinine 0.81 0.50 - 1.10 mg/dL LAB CHEMISTRY METHOD 11/23/2024 11:46 PM [facility] eGFR 85 >=60 mL/min/1. 73m2 LAB CHEMISTRY METHOD 11/23/2024 11:46 PM [facility] Comment:Calculation based on the Chronic Kidney Disease Epidemiology Collaboration (CKD-EPI) equation refit without adjustment for race. BUN/Creatinine Ratio 16.0 LAB CHEMISTRY METHOD 11/23/2024 11:46 PM [facility] Calcium 7.6(L) 8.5 - 10.5 mg/dL LAB CHEMISTRY METHOD 11/23/2024 11:46 PM [facility] AST (SGOT) 16 10 - 42 unit/L LAB CHEMISTRY METHOD 11/23/2024 11:46 PM [facility] ALT (SGPT) 75(H) 10 - 60 unit/L LAB CHEMISTRY METHOD 11/23/2024 11:46 PM [facility] Alkaline Phosphatase 285(H) 42 - 121 unit/L LAB CHEMISTRY METHOD 11/23/2024 11:46 PM [facility] Total Protein 6.3 6.0 - 8.0 g/dL LAB CHEMISTRY METHOD 11/23/2024 11:46 PM [facility] Albumin 3.1(L) 3.2 - 5.0 g/dL LAB CHEMISTRY METHOD 11/23/2024 11:46 PM [facility] Total Bilirubin <0.1 0.0 - 1.4 mg/dL LAB CHEMISTRY METHOD 11/23/2024 11:46 PM [facility] Blood Venous blood specimen / Unknown Venipuncture / Unknown 11/23/2024 9:16 PM EDT 11/23/2024 11:06 PM EDT Jose Alfredo Hernandez DO LAB BLOOD ORDERABLES Final Res ult [facility] [address] [place] [address], * ECG-Annotated (11/21/2024) Only the most recent [...] Signed Date: 11/16/2024 22:20 ET Workstation ID: [id number] Transcribed By: Self Edit Transcribed Date: 11/16/2024 [...] Signed Date: 11/16/2024 22:20 ET Workstation ID: [id number] Transcribed By: Self Edit Transcribed Date: 11/16/2024 22:19 ET Bhakti ARGUELLES IMG XR PROCEDURES Final Re sult * Troponin I high sensitivity (11/16/2024 7:10 PM EDT) Only the most recent of4 resultswithin the time period is included. High Sensitivity Troponin I 3 <=54 ng/L LAB CHEMISTRY METHOD 11/16/2024 8:30 PM EDT [facility] Blood Venous blood specimen / Unknown Venipuncture / Unknown 11/16/2024 7:10 PM EDT 11/16/2024 7:44 PM EDT Narrative [facility] - 11/16/2024 8:30 PM EDT High levels of biotin in samples may falsely decrease hsTroponin values. Use caution when interpreting hsTroponin results in patients taking biotin who exhibit renal impairment (eGFR <60) or in patients taking more than 20 mg/day of biotin. Bhakti ARGUELLES LAB BLOOD ORDERABLES Final Result Performing Organization Address [facility] Co de Phone Number [facility] [address] [place] [address], * B-type natriuretic peptide (11/16/2024 6:05 PM EDT) Only the most recent of2 resultswithin the time period is included. BNP 10 <=100 pcg/mL LAB CHEMISTRY METHOD 11/16/2024 7:33 PM EDT [facility] Blood Venous blood specimen / Unknown Venipuncture / Unknown 11/16/2024 6:05 PM EDT 11/16/2024 6:19 PM EDT Bhakti ARGUELLES LAB BLOOD ORDERABLES Final Result Performing Organization Address City/[facility]/ZIP Co de Phone Number [facility] [address] [place] [address], [place] [phone] * Magnesium (11/16/2024 6:05 PM EDT) Only the most recent of2 resultswithin the time period is included. Magnesium 2.2 1.9 - 2.6 mg/dL LAB CHEMISTRY METHOD 11/16/2024 6:53 PM EDT [facility] Blood Venous blood specimen / Unknown Venipuncture / Unknown 11/16/2024 6:05 PM EDT 11/16/2024 6:19 PM EDT Bhakti ARGUELLES LAB BLOOD ORDERABLES Final Result Performing Organization Address [facility] de Phone Number [facility] [address] [place] [address], * (ABNORMAL) Acetaminophen level (11/16/2024 6:05 PM EDT) Acetaminophen Level <2.0(L) 10.0 - 30.0 mcg/mL LAB CHEMISTRY METHOD 11/16/2024 9:05 PM EDT [facility] Blood Venous blood specimen / Unknown Venipuncture / Unknown 11/16/2024 6:05 PM EDT 11/16/2024 6:19 PM EDT Bhakti ARGUELLES LAB BLOOD ORDERABLES Final Result Performing Organization Address [facility] de Phone Number [facility] [address] [place] [address], [place] [phone] * ECG 12 lead (11/16/2024 5:57 PM EDT) Only the most recent of3 resultswithin the time period is included. Ventricular Rate ECG 72 BPM GEMUSE Atrial Rate 72 BPM GEMUSE P-R Interval 124 ms GEMUSE QRS Duration 84 ms GEMUSE Q-T Interval 410 ms GEMUSE QTc 448 ms GEMUSE P Wave [place] 51 degrees GEMUSE R [place] -2 degrees GEMUSE T [place] 12 degrees GEMUSE ECG Interpretation Normal sinus [...] AM EST Narrative 04/29/2022 1:05 PM EST [facility] Diagnostic Imaging Department [address] [place] [address] Patient: RAFAL NEGRON D.O.B./Age/Sex: 1965 - 56 - F Unit#: [id number] Location/Status: SPDIMAM/REG CLI Mnemonic/Ordering Site: [facility] Ordering Physician: CARRI NUNEZ MD Gerardo Screening Digital - 04/29/22 - 1138 INDICATION: SCREENING COMPARISON: [facility] mammograms dating back to 11/22/2014 TECHNIQUE: CC and MLO views of the breasts were obtained, using full field digital mammography with 3D tomosynthesis views in the MLO projection. Computer aided detection with the Qoniac 7.2-H was employed. FINDINGS: The breasts contain [...] a target date for the next mammogram. [id number] / [id number]) , [id number] Dictating Physician: AMAN SANTOYO MD Electronically Signed by: AMAN SANTOYO MD Dic Date/Time: 04/29/22 1302 Sign date/Time: 04/29/22 1305 Procedure Note Aman Santoyo MD - 07/16/2023 [facility] Diagnostic Imaging Department [address] [place], [place] [id number] Patient: RAFAL NEGRON /Age/Sex: 1965 - 56 - F Unit#: [id number] [facility] Site: [facility] Ordering Physician: CARRI NUNEZ MD Gerardo Screening Digital - 04/29/22 - 1138 INDICATION: SCREENING COMPARISON: [facility] mammograms dating back to 11/22/2014 TECHNIQUE: CC and MLO views of the breasts were obtained, using full field digital mammography with 3D tomosynthesis views in the MLO projection. Computer aided detection with the Qoniac 7.2-H was employed. FINDINGS: The breasts contain [...] target date for the next mammogram. 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
== END 2025-01-15 10:38 | disposition home or self-care (01) ==
LOC: HO.HGI 09:58
PROVIDERS: PCP Internal Medicine; Visit Provider Nurse Practitioner Family
DX: R10.13 Epigastric pain (principal); K59.01 Slow transit constipation; K56.600 Partial intestinal obstruction, unspecified as to cause; K21.9 Gastro-esophageal reflux disease without esophagitis
CPT/HCPCS: 99214

== ENCOUNTER → 2025-01-15 09:57 | Outpatient (BNVA) | payer MEDICAID, SELFPAY | PROVIDERS: PCP Internal Medicine; Visit Provider Nurse Practitioner Family | DX: Z01.818 Encounter for other preprocedural examination (principal); K21.9 Gastro-esophageal reflux disease without esophagitis; R10.13 Epigastric pain; K59.01 Slow transit constipation; K56.600 Partial intestinal obstruction, unspecified as to cause | CPT/HCPCS: 99212 ==

== ENCOUNTER 2025-02-27 13:13 | Outpatient (AMB) | payer MEDICAID, SELFPAY ==
--- NOTE | 2025-02-27 13:14 | A.OFFVIS_ITS ---
Vital Signs 02/27/25 13:15 Height 5 ft 6 in Weight 249 lb 8 oz BMI 40.3 BP 118/76 Blood Pressure Location Rt brachial Position Sitting Pulse 85 Pulse Source Pulse Oximeter Pulse Oximetry (%) 97 Oxygen Delivery Method Room Air Intake Visit Reasons: Botox Intake Note: Botox Brick Shader Required: No Accompanied by: Self / Same As Patient Allergies amoxicillin Allergy (Severe, Verified 02/27/25 13:15) yeast infection, itching gabapentin Allergy (Severe, Verified 02/27/25 13:15) Swelling meloxicam Allergy (Severe, Verified 02/27/25 13:15) Swelling baclofen Allergy (Intermediate, Verified 02/27/25 13:15) Swelling, sob lamotrigine Allergy (Unknown, Verified 02/27/25 13:15) Swelling acetaminophen (From Tylenol) Adverse Reaction (Intermediate, Verified 02/27/25 13:15) Unknown Medication List - Last Reconciled 02/27/25 by Yas Adam MD acarbose 100 mg PO TID blood pressure monitor Check BP bid and prn lightheadedness celecoxib 200 mg PO DAILY cetirizine (All Day Allergy (cetirizine)) 10 mg PO DAILY PRN clonazepam (Klonopin) 0.5 mg PO DAILY cyanocobalamin (vitamin B-12) 200 mcg PO DAILY cyclobenzaprine 10 mg PO BID dicyclomine 10 mg PO DAILY docusate sodium (Colace) 100 mg PO DAILY escitalopram oxalate 5 mg PO DAILY esomeprazole magnesium (Nexium) 40 mg PO DAILY famotidine (Pepcid) 20 mg PO BEDTIME levetiracetam 500 mg PO BID linaclotide (Linzess) 145 mcg PO DAILY lurasidone 120 mg PO DAILY nortriptyline 25 mg PO BID ondansetron 4 mg PO Q8H PRN riboflavin (vitamin B2) (Vitamin B-2) 200 mg (2 x 100 mg) PO BID 28 days tirzepatide (weight loss) (Zepbound) 5 mg (0.5 mL) subcut QWEEK trazodone 150 mg PO ONCE valacyclovir 1,000 mg PO DAILY HPI Comments Details: ? 59y/o female comes for treatment of migraines with botox. How many migraine days prior to botox 25-30/month How long do the migraines last 1-2 days Intensity of migraine8-10 ER visits related to migraine 1-2 Effectiveness of botox from last two treatment(s) How many migraine days since receiving treatment:5-10/month Change? in intensity of migraine?decreased Change in frequency of migraine?decreased Change in use of acute medication for migraine?decreased Change in quality of life?improved ER visits related to migraine?none Explanation for any gaps in treatment- hospitalized for syncope, malnutrition Have at least three months elapsed since last treatment (Last botox date - frequency of injections) 3 mths ??? Most frequent reported adverse reactions following injection of botox for chronic migraine include neck pain (9%), headache(5%), eyelid ptosis(4%), migraine(4%), muscular weakness(4%), musculuskeletal stiffness(4%), bronchitis(3%), injection site pain (3%), musculoskeletal pain(3%), myalgia(3%), facial paresis(2%), HTN(2%) and muscle spasms(2%) were discussed in detail. ??? Botulinum toxin typeA 200units Lot no [id number] expiration 04/2027 was diluted with 4 cc of normal saline . ??? Muscles injected ??? Frontalis 4 sites ??? Procerus 1 site ??? Process Engineering Technician- 2 sites ??? Temporalis- 8 sites ??? Occipitalis- 6 sites ??? Cervical paraspinals- 4 sites ??? Trapezius- 6 sites- 5 units each ??? 5 units each in 31 site ??? Total use- 155units ??? Discarded-45units [facility] Medical History Major depressive disorder, recurrent CVA (cerebral vascular accident) Seizure Personal history of nicotine dependence Cervicalgia Chronic migraine without aura, intractable, without status migrainosus History of low back pain Hx of myocardial infarction (~11/2022) Hx of migraines CKD (chronic kidney disease) History of blood transfusion (~04/2023) Weakness of both legs History of seizures Internal hernia Excess skin of upper extremity Lipoma History of lipoma Sleep apnea with use of continuous positive airway pressure (CPAP) Hypercholesterolemia Type 2 diabetes mellitus Anemia Lymphedema Migraines Anxiety Back pain Arthritis Carpal tunnel syndrome Body mass index (BMI) of 32.0-32.9 in adult Obesity (BMI 30-39.9) Intestinal malabsorption following gastrectomy H/O nephrolithotomy with removal of calculi Surgical History Hx of cataract surgery S/P brachioplasty S/P panniculectomy History of dental surgery (~06/2023) H/O hernia repair History of gastric surgery Hx of colonoscopy Hx of lumpectomy H/O cervical discectomy History of Zane-en-Y gastric bypass S/P carpal tunnel release Hx of section S/P knee replacement History of back surgery Family History Father No problems noted. Mother Arthritis Brother No problems noted. Brother No problems noted. Sister No problems noted. Sister No problems noted. Sister No problems noted. Sister No problems noted. Son No problems noted. Daughter No problems noted. 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, WASTEWATER DESIGN ENGINEER Caregiver staying overnight: No Housing: House Are you a primary progressive care manager to a significant other at home: No Do you presently have visiting nurse or other home services: Yes (WASTEWATER DESIGN ENGINEER 4 hrs /day) Alcohol intake: former Patient Tobacco Use Status: Former Tobacco user Tobacco use type: Cigarette Years Smoked: (former smoker 20pyh quit 2019) Advance Directives Date on File: 07/04/21 service: No Current occupational status: disabled Physical Exam Vital Signs: Last Vital Signs Pulse 85 02/27/25 13:15 BP 118/76 02/27/25 13:15 Pulse Ox 97 02/27/25 13:15 Oxygen Delivery Method Room Air 02/27/25 13:15 BMI result Body Mass Index 40.3 Const General: healthy appearing, no acute distress and well developed Nutritional Appearance: well nourished Orientation/consciousness: patient oriented x3 Neuro Other: walks with a walker Neck - severe tightness and tenderness in left splenius, semispinalis, trapezius, levator muscle with pain radiating to the left parietal temporla region General: patient oriented x3, tone normal and moves all extremities Psych Appearance: grossly normal Mental Status: mental status grossly normal Office Procedures Botulinum toxin Injection 40697 - Migraine Procedure code (CPT) selection complete Office Meds onabotulinumtoxinA 200 unit solution for injection Performing Provider: Yas Adam MD Performing Location: [facility] Administered by: Yas Adam MD on 02/27/25 13:50 Dose Route Admin Location Dispensed Lot Number Expiration Date [facility] Tube Operator 155 unit subcut 200 units [id number] ALLERGAN /BOTOX Total Dispensed Waste 200 units 22.5 % Comments: see HPI Assessment & Plan Assessment & Plan (1) Chronic migraine without aura: Comment: w/ neuralgia component over left religion Code(s): G43.709 - Chronic migraine without aura, not intractable, without status migrainosus Category: Medical Qualifiers: Status migrainosus presence: without status migrainosus Intractability: intractable Qualified Code(s): G43.719 - Chronic migraine without aura, intractable, without status migrainosus (2) Chronic migraine without aura, intractable, without status migrainosus: Code(s): G43.719 - Chronic migraine without aura, intractable, without status migrainosus Category: Medical (3) Cervicalgia: Code(s): M54.2 - Cervicalgia Category: Medical Plan Patient tolerated the procedure well . SHe will call with any side effects Orders: Orders AMB Botulinum toxin Injection Today G43.719 - Chronic migraine without aura, intractable, without status migrainosus Coding Level of Care Code Est Pt Level 1 (67807) Diagnoses Intractable chronic migraine without aura and without status migrainosus G43.719 Status migrainosus presence: without status migrainosus Intractability: intractable Chronic migraine without aura, intractable, without status migrainosus G43.719 Cervicalgia M54.2 CPT Codes Botox Injection - Botox 3: 37378 - Migraine ([id number])
[2025-02-27 13:15] VITALS: BP 118/76; PULSE 85; O2SAT 97; BMI 40.3
== END 2025-02-27 13:41 | disposition home or self-care (01) ==
LOC: HO.HSMS 13:14
PROVIDERS: PCP Internal Medicine; Visit Provider Psychiatry & Neurology Neurology
DX: G43.719 Chronic migraine without aura, intractable, without status migrainosus (principal)
CPT/HCPCS: 64615

== ENCOUNTER → 2025-02-27 13:13 | Outpatient (BNVA) | payer MEDICAID, SELFPAY | PROVIDERS: PCP Internal Medicine; Visit Provider Psychiatry & Neurology Neurology | DX: G43.719 Chronic migraine without aura, intractable, without status migrainosus (principal); M54.2 Cervicalgia | CPT/HCPCS: 64615; 99211; J0585 ==

== ENCOUNTER 2025-03-05 11:26 | Emergency (ER) | payer MEDICAID, SELFPAY ==
--- NOTE | 2025-03-05 | ECG_ITS ---
Test Reason : CP Blood Pressure : */* mmHG Vent. Rate : 81 BPM Atrial Rate : 81 BPM P-R Int : 122 ms QRS Dur : 82 ms QT Int : 392 ms P-R-T Axes : 43 -4 16 degrees QTcB Int : 455 ms Sinus rhythm with Premature ventricular complexes or Fusion complexes Minimal voltage criteria for LVH, may be normal variant ( R in aVL ) Borderline ECG When compared with ECG of 13-Jul-2023 12:30, Fusion complexes are now Present Referred By: Generic ED Physician Electronically Signed By: Russ Hernández
--- NOTE | ~2025-03-05 | XR_ITS ---
EXAMINATION: XR CHEST CLINICAL INFORMATION: chest pain COMPARISON: April 12, 2023 TECHNIQUE: Frontal view of the chest was obtained. FINDINGS: Spinal stimulator in the thoracic spine has been removed. Lung volumes are low. Lungs are grossly clear. Heart size normal. XR/XR chest 1V IMPRESSION: Low lung volumes with vascular crowding. Electronically signed by: Edwin Haywood MD 03/05/2025 12:28 PM EDT
[2025-03-05 11:33] VITALS: BP 129/84; BP 134/72; PULSE 81; PULSE 86; RESP 16; TEMP 36.5; O2SAT 97; O2SAT 99; BMI 40.5
[2025-03-05 11:54] LABS: MANUAL DIFF FLAG NO
--- NOTE | 2025-03-05 11:56 | ED.CHESTPAIN ---
HPI - Chest Pain General Chief Complaint: Chest Pain Stated Complaint: chest pain rt stabbing pain Time Seen by Provider: 03/05/25 11:44 Source: patient and EMS Limitations: no limitations History of Present Illness ED Provider: HPI narrative: 59-year-old woman with multiple medical problems including prior stroke, reports history of [place], presenting with intermittent sharp right-sided chest pain nonpruritic no fevers or chills no nausea or vomiting or diaphoresis reported. History of depression, history of bariatric surgery. Not on blood thinners, no recent surgeries no prolonged travel reported. Related Data Home Medications ?Medication ?Instructions ?Recorded ?Confirmed levetiracetam 500 mg tablet 500 mg PO BID 12/28/22 02/27/25 cetirizine 10 mg tablet (All Day 10 mg PO DAILY PRN Allergy Symptoms 05/21/23 02/27/25 Allergy (cetirizine)) escitalopram oxalate 5 mg tablet 5 mg PO DAILY 09/07/23 02/27/25 lurasidone 120 mg tablet 120 mg PO DAILY 12/30/23 02/27/25 nortriptyline 25 mg capsule 25 mg PO BID 12/30/23 02/27/25 valacyclovir 1 gram tablet 1,000 mg PO DAILY 12/30/23 02/27/25 cyanocobalamin (vitamin B-12) 100 200 mcg PO DAILY 01/26/24 02/27/25 mcg tablet trazodone 150 mg tablet 150 mg PO ONCE 03/01/24 02/27/25 celecoxib 200 mg capsule 200 mg PO DAILY 03/13/24 02/27/25 dicyclomine 10 mg capsule 10 mg PO DAILY 08/09/24 02/27/25 clonazepam 0.5 mg tablet (Klonopin) 0.5 mg PO DAILY 12/19/24 02/27/25 acarbose 100 mg tablet 100 mg PO TID 01/15/25 02/27/25 ondansetron 4 mg disintegrating 4 mg PO Q8H PRN 01/15/25 02/27/25 tablet Previous Rx's ?Medication ?Instructions ?Recorded blood pressure monitor #1 ea 03/04/22 riboflavin (vitamin B2) 100 mg 200 mg (2 x 100 mg) PO BID 28 days 05/14/24 tablet (Vitamin B-2) #112 tabs docusate sodium 100 mg capsule 100 mg PO DAILY #90 caps 12/11/24 (Colace) esomeprazole magnesium 40 mg 40 mg PO DAILY #30 caps 01/15/25 capsule,delayed release (Nexium) famotidine 20 mg tablet (Pepcid) 20 mg PO BEDTIME #30 tabs 01/15/25 linaclotide 145 mcg capsule 145 mcg PO DAILY #30 caps 01/15/25 (Linzess) cyclobenzaprine 10 mg tablet 10 mg PO BID #60 tabs 01/27/25 tirzepatide (weight loss) 5 mg/0.5 5 mg (0.5 mL) subcut QWEEK #2 mL 02/19/25 mL subcutaneous pen injector (Zepbound) Allergies Allergy/AdvReac Type Severity Reaction Status Date / Time amoxicillin Allergy Severe yeast Verified 03/05/25 11:43 infection, itching gabapentin Allergy Severe Swelling Verified 03/05/25 11:43 meloxicam Allergy Severe Swelling Verified 03/05/25 11:43 baclofen Allergy Intermediate Swelling, Verified 03/05/25 11:43 sob lamotrigine Allergy Unknown Swelling Verified 03/05/25 11:43 acetaminophen (From Tylenol) AdvReac Intermediate Unknown Verified 03/05/25 11:43 Review of Systems Constitutional: Constitutional: Reports as per HPI [facility] Past Medical History Medical History Major depressive disorder, recurrent CVA (cerebral vascular accident) Seizure Personal history of nicotine dependence Cervicalgia Chronic migraine without aura, intractable, without status migrainosus History of low back pain Hx of myocardial infarction (~11/2022) Hx of migraines CKD (chronic kidney disease) History of blood transfusion (~04/2023) Weakness of both legs History of seizures Internal hernia Excess skin of upper extremity Lipoma History of lipoma Sleep apnea with use of continuous positive airway pressure (CPAP) Hypercholesterolemia Type 2 diabetes mellitus Anemia Lymphedema Migraines Anxiety Back pain Arthritis Carpal tunnel syndrome Body mass index (BMI) of 32.0-32.9 in adult Obesity (BMI 30-39.9) Intestinal malabsorption following gastrectomy H/O nephrolithotomy with removal of calculi Surgical History Hx of cataract surgery S/P brachioplasty S/P panniculectomy History of dental surgery (~06/2023) H/O hernia repair History of gastric surgery Hx of colonoscopy Hx of lumpectomy H/O cervical discectomy History of Zane-en-Y gastric bypass S/P carpal tunnel release Hx of section S/P knee replacement History of back surgery Family History Family History Father No problems noted. Mother Arthritis Brother No problems noted. Brother No problems noted. Sister No problems noted. Sister No problems noted. Sister No problems noted. Sister No problems noted. Son No problems noted. Daughter No problems noted. Social History 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, FIELD ACCOUNT DIRECTOR Housing: House Are you a primary healthcare account manager to a significant other at home: No Do you presently have visiting nurse or other home services: Yes (FIELD ACCOUNT DIRECTOR 4 hrs/day) Alcohol intake: former Patient Tobacco Use Status: Former Tobacco user Tobacco use type: Cigarette Years Smoked: (former smoker 20pyh quit 2018) Smoked in Last 30 Days: No Use of substances other than those prescribed or required for medical reasons: No Advance Directives: Yes Advance Directives on File: Yes Advance Directives Date on File: 07/04/21 Do you have a plan to hurt others: No Plan Patient : No service: No Current occupational status: disabled Physical Exam Vital Signs: Vital Signs: Last Vital Signs Temp 98.3 F 03/05/25 14:01 Pulse 78 03/05/25 14:01 Resp 12 03/05/25 14:01 BP 106/66 03/05/25 14:01 Pulse Ox 100 03/05/25 14:01 O2 Del Method Room Air 03/05/25 14:01 BMI result Body Mass Index 40.5 Const: Other: Gen: ?Overall well-appearing patient CV: RRR, no obvious murmurs appreciated radial pulses +2 bilaterally, right-sided chest wall tenderness Resp: ?No wheezing rales rhonchi no stridor moving air well Abd: ?Bowel sounds are present, no tenderness no rebound no rigidity MSK: Brace on right knee, no lower extremity edema Skin: Warm, dry, intact, Neuro: ?Alert and oriented x3, moving upper and lower extremities symmetrically, no obvious facial asymmetry noted Medications Administered Discontinued Medications Generic Name Dose Route Start Last Admin Trade Name [place] PRN Reason Stop Dose Admin Diazepam 2 mg 03/05/25 13:23 03/05/25 13:32 Diazepam 2 Mg Tablet PO 03/05/25 13:24 2 mg ONCE ONE Administration Medical Decision Making Medical Decision Making [facility] Narrative: 11:59 AM 03/05/2025 (Dr. Uday Nunez): Unable to PERC patient out we will obtain D-dimer, no hypoxia tachycardia and no PE risk factors elicited but the pain she is describing maybe pleuritic cardiac workup as well we will obtain a troponin x2 this was intermittent pain at the time of my evaluation she is chest pain-free Differential Diagnosis Differential Diagnoses: The differential diagnosis associated with the presentation includes (ACS, pneumothorax, aortic dissection, PE, Boerhaave syndrome) Admission/Observation Consideration of admission/observation: Escalation of care including admission/observation considered Lab Data [facility] Lab Attestation statement: I reviewed the patient's lab results. 03/05/25 11:49 03/05/25 11:49 Labs: Lab Results 03/05/25 03/05/25 03/05/25 Range/Units 11:49 12:08 14:05 WBC 10.2 (4.8-10.8) X10*3/uL RBC 4.72 (4.20-5.50) X10*6/uL Hgb 12.5 (12.0-16.0) g/dl Hct 40.2 (37.0-47.0) % MCV 85.2 (80.0-98.0) fL MCH 26.5 L (27.0-33.0) pg MCHC 31.1 (31.0-35.0) g/dl RDW 14.6 (11.0-16.0) % Plt Count 170 (160-400) X10*3/uL MPV 10.7 (9.4-12.3) fL Immature Gran % (Auto) 0.3 (0.0-0.4) % Neut % (Auto) 69.4 (45-73) % Lymph % (Auto) 23.6 (20-40) % [place] % (Auto) 5.2 (2-11) % Eos % (Auto) 1.3 (0-4) % Baso % (Auto) 0.2 (0-2) % Lymph # (Auto) 2.4 (1.2-4.9) X10*3/uL [place] # (Auto) 0.5 (0.1-1.2) X10*3/uL Eos # (Auto) 0.1 (0.0-0.4) X10*3/uL Baso # (Auto) 0.0 (0.0-0.2) X10*3/uL Abs Immat Gran (auto) 0.03 (0.00-0.03) X10*3/uL Absolute Neuts (auto) 7.1 (2.0-8.3) x10*3/uL Absolute Nucleated RBC 0.000 (0.0-0.012) X10*3/uL Nucleated RBC % (auto) 0.0 (0.0-0.2) /100WBC D-Dimer High Sensitivty < 150 NG/ML Sodium 140 (135-145) mmol/L Potassium 3.2 L (3.3-5.1) mmol/L Chloride 107 (96-108) mmol/L Carbon Dioxide 29 (22-29) mmol/L Anion Gap 7 L (12-20) BUN 10 (9-16) mg/dL Creatinine 0.87 (0.5-1.4) mg/dL Estim Creat Clear Calc 91.4 Estimated GFR > 60 Random Glucose 77 (60-115) mg/dL Calcium 8.1 L (8.4-10.2) mg/dL Magnesium 1.9 (1.6-2.6) mg/dL Total Bilirubin 0.2 (0.0-1.0) mg/dL AST 22 (5-31) U/L ALT 25 (0-31) U/L Alkaline Phosphatase 217 H (39-117) U/L Troponin I High Sens < 2.7 < 2.7 (<3.5-17.0) ng/L Total Protein 7.4 (6.5-8.0) g/dL Albumin 4.2 (3.5-5.0) g/dL Independent Interpretation I performed an independent interpretation of an: EKG (81 beats per minute otherwise normal ECG without dysrhythmia, AV david blocks or ST-T changes to suspect underlying ACS, my independent interpretation) and Plain X-Ray (My independent chest xray interpretation: Lungs: Lungs are clear bilaterally without evidence of focal consolidation, pleural effusion, or pneumothorax. Cardiac silhouette is unremarkable, no obvious mediastinal widening, no obvious bony abnormalities such as fractures. Impression: Normal chest X-r) Radiology Impression Discussion of test interpretation with radiology: I have reviewed the radiologist's reading. Independent Historian Clinical information obtained from an independent historian. History obtained from or confirmed by: EMS External Record Review External record reviewed: Inpatient record Discharge Plan Discharge Clinical Impression: Chest pain, precordial Patient Disposition: Home, Self-Care Instructions: Chest Pain (ED) Additional Instructions: Diagnosis and Initial Evaluation: You have been evaluated in the Emergency Department (ED) for chest pain. Based on your clinical assessment, electrocardiogram (ECG), and high-sensitivity cardiac troponin (hs-cTn) levels, you have been classified as low-risk for acute coronary syndrome (ACS) and myocardial infarction ([place]). This means that your likelihood of having a heart attack or other serious heart condition in the next 30 days is very low. Follow-Up Care: ? Primary Care Provider (PCP) or Lay Out And Detail Drafter: It is important to follow up with your primary care provider or criminal defense attorney within the next 14 to 30 days. This follow-up is crucial to ensure that any underlying conditions are managed appropriately and to discuss any further testing that may be needed. ? Notification: If you have an established PCP or criminal defense attorney, they have been notified of your ED visit to facilitate continuity of care. Self-Care and Monitoring: ? Medications: Continue taking any prescribed medications as directed. If you have been given new medications, ensure you understand how and when to take them. ? Activity: Resume normal activities as tolerated. Avoid strenuous activities until you have discussed them with your healthcare provider. ? Diet: Maintain a heart-healthy diet, low in saturated fats, cholesterol, and sodium. Red Flags: Seek immediate medical attention if you experience any of the following: ? New or worsening chest pain ? Shortness of breath ? Dizziness or fainting ? Pain radiating to your arm, neck, or jaw ? Sweating, nausea, or vomiting Additional Testing: In some cases, outpatient testing such as a stress test or imaging may be recommended to further evaluate your heart health. Your follow-up provider will discuss this with you if necessary. Mental Health: Anxiety and stress can contribute to chest pain. Consider discussing any concerns with your healthcare provider, who may recommend screening for anxiety or depression and appropriate management strategies. Contact Information: If you have any questions or concerns before your follow-up appointment, please contact your healthcare provider or the ED where you were evaluated. Summary: You have been discharged from the ED with a low risk of serious heart conditions. Follow the instructions above, attend your follow-up appointments, and seek immediate care if you experience any red flags. Prescriptions: No Action trazodone 150 mg tablet 150 mg PO ONCE riboflavin (vitamin B2) [Vitamin B-2] 100 mg tablet 200 mg PO BID 28 Days Qty: 112 11RF docusate sodium [Colace] 100 mg capsule 100 mg PO DAILY Qty: 90 0RF cyclobenzaprine 10 mg tablet 10 mg PO BID Qty: 60 0RF Zepbound 5 mg/0.5 mL pen injector 5 mg subcut QWEEK Qty: 2 0RF (DME) blood pressure monitor Kit See Rx Instructions .Route Qty: 1 0RF Rx Instructions: Check BP bid and prn lightheadedness levetiracetam 500 mg tablet 500 mg PO BID cetirizine [All Day Allergy (cetirizine)] 10 mg tablet 10 mg PO DAILY PRN (Reason: Allergy Symptoms) escitalopram oxalate 5 mg tablet 5 mg PO DAILY valacyclovir 1 gram tablet 1,000 mg PO DAILY lurasidone 120 mg tablet 120 mg PO DAILY nortriptyline 25 mg capsule 25 mg PO BID cyanocobalamin (vitamin B-12) 100 mcg tablet 200 mcg PO DAILY celecoxib 200 mg capsule 200 mg PO DAILY ondansetron 4 mg tablet,disintegrating 4 mg PO Q8H PRN acarbose 100 mg tablet 100 mg PO TID famotidine [Pepcid] 20 mg tablet 20 mg PO BEDTIME Qty: 30 3RF esomeprazole magnesium [Nexium] 40 mg capsule,delayed release(DR/EC) 40 mg PO DAILY Qty: 30 2RF Linzess 145 mcg capsule 145 mcg PO DAILY Qty: 30 2RF clonazepam [Klonopin] 0.5 mg tablet 0.5 mg PO DAILY dicyclomine 10 mg capsule 10 mg PO DAILY Print Language: Danish
[2025-03-05 12:02] LABS: Hematocrit 40.2 % (37.0-47.0); Hemoglobin 12.5 g/dl (12.0-16.0); Imm Gran Abs Auto 0.03 X10*3/uL (0.00-0.03); Imm Gran Pct Auto 0.3 % (0.0-0.4); Lymphocytes Absolute Auto 2.4 X10*3/uL (1.2-4.9); Mean Corpuscular HGB Conc 31.1 g/dl (31.0-35.0); Mean Corpuscular Hemoglobin 26.5 pg (27.0-33.0); Mean Corpuscular Volume 85.2 fL (80.0-98.0); NRBC Abs Auto 0.000 X10*3/uL (0.0-0.012); NRBC Pct Auto 0.0 /100WBC (0.0-0.2); Platelet Count 170 X10*3/uL (160-400); Red Blood Count 4.72 X10*6/uL (4.20-5.50); White Blood Count 10.2 X10*3/uL (4.8-10.8)
[2025-03-05 12:13] LABS: Alanine Aminotransferase 25 U/L (0-31); Albumin Level 4.2 g/dL (3.5-5.0); Alkaline Phosphatase 217 U/L (39-117); Anion Gap 7 (12-20); Aspartate Amino Transferase 22 U/L (5-31); Blood Urea Nitrogen 10 mg/dL (9-16); Calcium 8.1 mg/dL (8.4-10.2); Carbon Dioxide 29 mmol/L (22-29); Chloride 107 mmol/L (96-108); Creatinine Clr Calc Pharmacy 91.4; Estimated Glomerular Filt Rate > 60; Magnesium 1.9 mg/dL (1.6-2.6); Potassium 3.2 mmol/L (3.3-5.1); Sodium 140 mmol/L (135-145); Total Protein 7.4 g/dL (6.5-8.0)
[2025-03-05 12:22] LABS: Troponin-I High Sensitivity < 2.7 ng/L (<3.5-17.0)
[2025-03-05 12:32] LABS: D Dimer High Sensitivity < 150 NG/ML
[2025-03-05 13:34] VITALS: BP 105/57; PULSE 77; RESP 18; TEMP 36.7; O2SAT 100
[2025-03-05 14:01] VITALS: BP 106/66; PULSE 78; RESP 12; TEMP 36.8; O2SAT 100
[2025-03-05 14:34] LABS: Troponin-I High Sensitivity < 2.7 ng/L (<3.5-17.0)
[2025-03-05 16:00] VITALS: BP 106/66; PULSE 78; RESP 12; TEMP 36.8; O2SAT 100
[2025-03-05 17:48] VITALS: BP 106/66; PULSE 78; RESP 12; TEMP 36.8; O2SAT 100
== END 2025-03-05 17:49 | disposition home or self-care (01) ==
PROVIDERS: Emergency Provider Emergency Medicine; PCP Internal Medicine
DX: R07.9 Chest pain, unspecified (principal); R07.2 Precordial pain
CPT/HCPCS: 36415; 71045; 80053; 83735; 84484; 85025; 85379; 93005; 99283; 99285

== ENCOUNTER → 2025-03-05 11:38 | Outpatient (BNV) | payer MEDICAID, SELFPAY | PROVIDERS: Emergency Provider Emergency Medicine; PCP Internal Medicine; Visit Provider Internal Medicine Cardiovascular Disease | DX: R07.89 Other chest pain (principal) | CPT/HCPCS: 93010 ==

== ENCOUNTER → 2025-03-05 11:54 | Outpatient (BNV) | payer MEDICAID, SELFPAY | PROVIDERS: Emergency Provider Emergency Medicine; PCP Internal Medicine; Visit Provider Radiology Diagnostic Radiology | DX: J98.4 Other disorders of lung (principal) | CPT/HCPCS: 71045 ==

== ENCOUNTER 2025-03-21 11:11 | Outpatient (REF) | payer MEDICAID, SELFPAY ==
[2025-03-21 12:32] LABS: Alanine Aminotransferase 17 U/L (0-31); Albumin Level 3.8 g/dL (3.5-5.0); Alkaline Phosphatase 186 U/L (39-117); Anion Gap 5 (12-20); Aspartate Amino Transferase 18 U/L (5-31); Blood Urea Nitrogen 12 mg/dL (9-16); Calcium 8.0 mg/dL (8.4-10.2); Carbon Dioxide 27 mmol/L (22-29); Chloride 111 mmol/L (96-108); Estimated Glomerular Filt Rate > 60; Magnesium 1.9 mg/dL (1.6-2.6); Potassium 3.8 mmol/L (3.3-5.1); Sodium 139 mmol/L (135-145); Total Protein 6.6 g/dL (6.5-8.0)
[2025-03-21 13:32] LABS: Hemoglobin A1C 97.4770 umol/L; Total Hemoglobin (HGBA1C) 3011.5388 umol/L
== END 2025-03-21 11:12 | disposition home or self-care (01) ==
LOC: HO.10HDL 11:11
PROVIDERS: Visit Provider Internal Medicine
DX: E11.9 Type 2 diabetes mellitus without complications (principal); E66.01 Morbid (severe) obesity due to excess calories; E87.6 Hypokalemia; I10 Essential (primary) hypertension
CPT/HCPCS: 36415; 80053; 83036; 83735

== ENCOUNTER 2025-03-28 09:38 | Outpatient (AMB) | payer MEDICAID, SELFPAY ==
[2025-03-28 09:49] VITALS: BP 134/64; PULSE 84; TEMP 36; BMI 38.2
--- NOTE | 2025-03-28 09:49 | MHC.OFFVISWM ---
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 Required: No Accompanied by: Self / Same As Patient Allergies amoxicillin Allergy (Severe, Verified 03/28/25 09:56) yeast infection, itching gabapentin Allergy (Severe, Verified 03/28/25 09:56) Swelling meloxicam Allergy (Severe, Verified 03/28/25 09:56) Swelling baclofen Allergy (Intermediate, Verified 03/28/25 09:56) Swelling, sob lamotrigine Allergy (Unknown, Verified 03/28/25 09:56) Swelling acetaminophen (From Tylenol) Adverse Reaction (Intermediate, Verified 03/28/25 09:56) Unknown Medication List - Last Reconciled 03/28/25 by KINDRA Hopkins acarbose 100 mg PO TID blood pressure monitor Check BP bid and prn lightheadedness buprenorphine 20 mcg/hour (Butrans) 1 patch topical QWEEK celecoxib 200 mg PO DAILY cetirizine (All Day Allergy (cetirizine)) 10 mg PO DAILY PRN cyanocobalamin (vitamin B-12) 200 mcg PO DAILY cyclobenzaprine 10 mg PO BID dicyclomine 10 mg PO DAILY docusate sodium (Colace) 100 mg PO DAILY escitalopram oxalate 5 mg PO DAILY esomeprazole magnesium (Nexium) 40 mg PO DAILY famotidine (Pepcid) 20 mg PO BEDTIME levetiracetam 500 mg PO BID linaclotide (Linzess) 145 mcg PO DAILY lurasidone 120 mg PO DAILY nortriptyline 25 mg PO BID ondansetron 4 mg PO Q8H PRN riboflavin (vitamin B2) (Vitamin B-2) 200 mg (2 x 100 mg) PO BID 28 days tirzepatide (weight loss) (Zepbound) 7.5 mg (0.5 mL) subcut QWEEK trazodone 200 mg PO ONCE valacyclovir 1,000 mg PO DAILY HPI Comments Details: This?is a?59?yo F who is s/p RYGB 04/05/2019. Presents for 6y post op visit. Weight loss of 12.2lb since last OV 3mo ago. She was recently put on a medication that resulted in some weight gain so she stopped this. Present meal plan includes: goes to a program for breakfast and lunch eats breakfast- cereal or an egg lunch- meat and salad dinner- meat and salad avoids rice and bread Exercise routine includes: limited by chronic pain, uses a walker and knee brace [facility] Medical History Major depressive disorder, recurrent CVA (cerebral vascular accident) Seizure Personal history of nicotine dependence Cervicalgia Chronic migraine without aura, intractable, without status migrainosus History of low back pain Hx of myocardial infarction (~11/2022) Hx of migraines CKD (chronic kidney disease) History of blood transfusion (~04/2023) Weakness of both legs History of seizures Internal hernia Excess skin of upper extremity Lipoma History of lipoma Sleep apnea with use of continuous positive airway pressure (CPAP) Hypercholesterolemia Type 2 diabetes mellitus Anemia Lymphedema Migraines Anxiety Back pain Arthritis Carpal tunnel syndrome Body mass index (BMI) of 32.0-32.9 in adult Obesity (BMI 30-39.9) Intestinal malabsorption following gastrectomy H/O nephrolithotomy with removal of calculi Surgical History Hx of cataract surgery S/P brachioplasty S/P panniculectomy History of dental surgery (~06/2023) H/O hernia repair History of gastric surgery Hx of colonoscopy Hx of lumpectomy H/O cervical discectomy History of Zane-en-Y gastric bypass S/P carpal tunnel release Hx of section S/P knee replacement History of back surgery Family History Father No problems noted. Mother Arthritis Brother No problems noted. Brother No problems noted. Sister No problems noted. Sister No problems noted. Sister No problems noted. Sister No problems noted. Son No problems noted. Daughter No problems noted. 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, DISPATCHER [employer] Caregiver staying overnight: No Housing: House Are you a primary dog daycare provider to a significant other at home: No Do you presently have visiting nurse or other home services: Yes (DISPATCHER [employer] 4 hrs/day) Alcohol intake: former Patient Tobacco Use Status: Former Tobacco user Tobacco use type: Cigarette Years Smoked: (former smoker 20pyh quit 2018) Advance Directives Date on File: 07/04/21 service: No Current occupational status: disabled Physical Exam Vital Signs: Last Vital Signs Temp 96.8 F 03/28/25 09:49 Pulse 84 03/28/25 09:49 BP 134/64 03/28/25 09:49 BMI result Body Mass Index 38.2 Assessment & Plan Assessment & Plan (1) Obesity (BMI 30-39.9): Code(s): E66.9 - Obesity, unspecified Category: Medical (2) Gastric bypass status for obesity: Code(s): Z98.84 - Bariatric surgery status Category: Surgical Plan I encouraged her to implement one protein shake per day to start. She is likely not getting enough protein. Try to choose eggs or yogurt or other high protein breakfast item at her program. RTC 6mo, will be due for labs. Medications: Refilled tirzepatide (weight loss) (Zepbound) 7.5 mg (0.5 mL) subcut QWEEK 2 mL 0RF
== END 2025-03-28 10:24 | disposition home or self-care (01) ==
LOC: HO.HBS 09:39
PROVIDERS: PCP Internal Medicine; Visit Provider Physician Assistant Surgical
DX: E66.9 Obesity, unspecified (principal); Z98.84 Bariatric surgery status
CPT/HCPCS: 99214

== ENCOUNTER → 2025-03-28 09:38 | Outpatient (BNVA) | payer MEDICAID, SELFPAY | PROVIDERS: PCP Internal Medicine; Visit Provider Physician Assistant Surgical | DX: E66.9 Obesity, unspecified (principal); Z68.38 Body mass index [BMI] 38.0-38.9, adult; Z98.84 Bariatric surgery status | CPT/HCPCS: 99212 ==

== ENCOUNTER 2025-03-30 08:34 | Outpatient (AMB) | payer MEDICAID, SELFPAY ==
--- NOTE | 2025-03-30 08:35 | A.OFFVIS_ITS ---
Vital Signs 03/30/25 08:43 Height 5 ft 6 in Weight 237 lb BMI 38.2 BP 105/58 L Blood Pressure Location Lt radial Position Sitting Pulse 86 Intake Visit Reasons: FUV constipation mgmt. R/S 03/20 Intake Note: Est pt for constipation mgmt. Follow up abdominal pain. Patient c/o upper abdominal upper esophagus area that gets worse after eating. Reports Linzess makes her strain when taking BM. SALES AND CATERING COORDINATOR takes care of meds. Not sure if esomeprazole, famotidine is helping. Zepbound X3m, helping. Has lost 12lbs. Piercer Required: No Accompanied by: Self / Same As Patient Allergies amoxicillin Allergy (Severe, Verified 03/30/25 08:47) yeast infection, itching gabapentin Allergy (Severe, Verified 03/30/25 08:47) Swelling meloxicam Allergy (Severe, Verified 03/30/25 08:47) Swelling baclofen Allergy (Intermediate, Verified 03/30/25 08:47) Swelling, sob lamotrigine Allergy (Unknown, Verified 03/30/25 08:47) Swelling acetaminophen (From Tylenol) Adverse Reaction (Intermediate, Verified 03/30/25 08:47) Unknown HPI HPI FUV constipation mgmt. R/S 03/20: Details: LAST VISIT: Abdominal pain Constipation Partial small bowel obstruction Gastroesophageal reflux disease Plan Will change PPI. Patient will start taking Nexium 40 mg daily. Patient will take famotidine at bedtime. Avoid dietary triggers and late night snacking. Staying upright for minimum 3 hours after meals discussed with patient. Patient will start taking Linzess 145 mcg daily. Increase fluid intake and activity to promote better bowel motility. Patient will return in 2 months. We will discuss going for colonoscopy. Patient might be sent for upper endoscopy if her symptoms persist. Patient is agreeable to this plan and verbalizes understanding of instructions. He was given the opportunity to ask questions and all questions answered. ? Thank you for allowing me to participate in her care New famotidine (Pepcid) 20 mg PO BEDTIME 30 tabs 3RF K21.9 esomeprazole magnesium (Nexium) 40 mg PO DAILY 30 caps 2RF K21.9 linaclotide (Linzess) 145 mcg PO DAILY 30 caps 2RF Discontinued pantoprazole Discontinued Reason: Doctor's Order 40 mg PO DAILY 90 days 90 tabs 4RF sennosides Discontinued Reason: Doctor's Order 17.2 mg (2 x 8.6 mg) PO BEDTIME 60 tabs 5RF constipation K59.00 TODAY'S VISIT Patient is here today for follow-up. Patient reports that she is having worsening epigastric pain and constipation. She states that she is taking Linzess and still is having trouble moving her bowels. She has to push and sometimes no bowel movements for 2-3 days. Patient has been on Zepbound for the last 3 months, lost weight, however GLP1 might be contributing to her epigastric pain slowing down the motility of her stomach as well as slowing down the motility of her intestines causing increased constipation. Patient reports that she is taking Nexium in the morning half an hour before breakfast and famotidine at bedtime. Wakes up in the morning with epigastric pain and occasional nausea. Patient denies any vomiting. Patient denies any diarrhea, mucus in her stools. Denies melena, hematochezia, unintentional weight loss or ribbon like stools. Patient is eager to lose weight as she has been having leg pain from caring all the weight. Patient states that she is trying to eat healthier. Avoids eating food that is fried or spicy. [facility] Medical History Major depressive disorder, recurrent CVA (cerebral vascular accident) Seizure Personal history of nicotine dependence Cervicalgia Chronic migraine without aura, intractable, without status migrainosus History of low back pain Hx of myocardial infarction (~11/2022) Hx of migraines CKD (chronic kidney disease) History of blood transfusion (~04/2023) Weakness of both legs History of seizures Internal hernia Excess skin of upper extremity Lipoma History of lipoma Sleep apnea with use of continuous positive airway pressure (CPAP) Hypercholesterolemia Type 2 diabetes mellitus Anemia Lymphedema Migraines Anxiety Back pain Arthritis Carpal tunnel syndrome Body mass index (BMI) of 32.0-32.9 in adult Obesity (BMI 30-39.9) Intestinal malabsorption following gastrectomy H/O nephrolithotomy with removal of calculi Surgical History Hx of cataract surgery S/P brachioplasty S/P panniculectomy History of dental surgery (~06/2023) H/O hernia repair History of gastric surgery Hx of colonoscopy Hx of lumpectomy H/O cervical discectomy History of Zane-en-Y gastric bypass S/P carpal tunnel release Hx of section S/P knee replacement History of back surgery Family History Father No problems noted. Mother Arthritis Brother No problems noted. Brother No problems noted. Sister No problems noted. Sister No problems noted. Sister No problems noted. Sister No problems noted. Son No problems noted. Daughter No problems noted. 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, SALES AND CATERING COORDINATOR Caregiver staying overnight: No Housing: House Are you a primary family day care worker to a significant other at home: No Do you presently have visiting nurse or other home services: Yes (SALES AND CATERING COORDINATOR 4 hrs/day) Alcohol intake: former Patient Tobacco Use Status: Former Tobacco user Tobacco use type: Cigarette Years Smoked: (former smoker 20pyh quit 2018) Advance Directives Date on File: 07/04/21 service: No Current occupational status: disabled Review of Systems Const Denies weight gain and Denies weight loss ENT Reports no additional complaints, Denies dysphagia and Denies odynophagia Card Reports no additional complaints Resp Reports no additional complaints GI Reports abdominal pain (epigastric), Denies belching, Denies melena, Reports bloating, Denies change in bowel habits, Reports constipation, Denies dysphagia, Denies excessive flatus, Denies dyspepsia, Reports heartburn, Denies diarrhea, Denies loose stools, Denies nausea, Denies odynophagia and Denies vomiting Reports no additional complaints Musc Reports no additional complaints Neuro Reports no additional complaints Psych Reports no additional complaints Endo Reports no additional complaints Physical Exam Vital Signs: Last Vital Signs Pulse 86 03/30/25 08:43 BP 105/58 L 03/30/25 08:43 BMI result Body Mass Index 38.2 Const Other: Ambulating using a wheeled walker General: healthy appearing and no acute distress Nutritional Appearance: obese Orientation/consciousness: patient oriented x3 Resp Effort & Inspection: normal respiratory effort, able to speak in complete sentences, no tracheal deviation and symmetric chest movement Auscultation: clear to auscultation bilaterally Cardio Rate: regular rate GI Other: surgical scar Inspection: No distended and Yes obesity Palpation (GI): Soft to palpation, not firm, Tenderness to palpation present (GI) (Above umbilical area) and No hepatosplenomegaly present Auscultation: normal bowel sounds General: Yes no CVA tenderness Back/Spine/Pelvis Back: no CVA tenderness Skin General skin exam: elasticity normal, turgor normal and dry skin Neuro General: patient oriented x3 Psych Appearance: grossly normal Mental Status: mental status grossly normal Assessment & Plan Assessment & Plan (1) Abdominal pain: Code(s): R10.9 - Unspecified abdominal pain Category: Medical Qualifiers: Abdominal location: epigastric Qualified Code(s): R10.13 - Epigastric pain (2) Constipation: Code(s): K59.00 - Constipation, unspecified Category: Medical Qualifiers: Constipation type: slow transit constipation Qualified Code(s): K59.01 - Slow transit constipation (3) Partial small bowel obstruction: Code(s): K56.600 - Partial intestinal obstruction, unspecified as to cause Category: Medical (4) Gastroesophageal reflux disease: Code(s): K21.9 - Gastro-esophageal reflux disease without esophagitis Qualifiers: Esophagitis presence: esophagitis presence not specified Qualified Code(s): K21.9 - Gastro-esophageal reflux disease without esophagitis (5) Postprandial epigastric pain: Code(s): R10.13 - Epigastric pain Plan Will continue her on PPI, however will change famotidine to sucralfate. Patient was encouraged to take it before bedtime. Discussed with patient the importance of avoiding dietary triggers in bedtime snacking. Staying upright for minimum 3 hours after meals discussed with patient. Will increase Linzess to 290 mcg daily. Patient was encouraged to increase fluid intake and activity to promote better bowel motility. Patient was encouraged to eat smaller meals and more often. Patient will return to the office in 3 months, sooner on as needed basis. Patient was encouraged to call us if Linzess will not be effective or if any GI concerning symptoms. She is agreeable to current plan of care and verbalizes understanding of instructions. She was given the opportunity to ask questions and all questions answered. Thank you for allowing me to participate in her care Medications: New linaclotide (Linzess) 290 mcg PO QAM 30 caps 6RF K59.00 - Constipation, unspecified sucralfate 1 g PO BEDTIME 30 tabs 4RF R10.13 - Epigastric pain, R19.7 - Diarrhea, unspecified Discontinued famotidine (Pepcid) Discontinued Reason: Doctor's Order 20 mg PO BEDTIME 30 tabs 3RF K21.9 - Gastro-esophageal reflux disease without esophagitis linaclotide (Linzess) Discontinued Reason: Doctor's Order 145 mcg PO DAILY 30 caps 2RF Coding Level of Care Code Est Pt Level 4 (06701) Complex EM visit Add On G2211 Diagnoses Abdominal pain R10.13 Abdominal location: epigastric Slow transit constipation K59.01 Constipation type: slow transit constipation Partial small bowel obstruction K56.600 Gastroesophageal reflux disease, unspecified whether esophagitis present K21.9 Esophagitis presence: esophagitis presence not specified Postprandial epigastric pain R10.13 Time Spent (min) 40 Comment 25 minutes spent with patient and additional 15 minutes spent reviewing her records
[2025-03-30 08:43] VITALS: BP 105/58; PULSE 86; BMI 38.2
== END 2025-03-30 09:13 | disposition home or self-care (01) ==
LOC: HO.HGI 08:35
PROVIDERS: PCP Internal Medicine; Visit Provider Nurse Practitioner Family
DX: R10.13 Epigastric pain (principal); K59.01 Slow transit constipation; K56.600 Partial intestinal obstruction, unspecified as to cause; K21.9 Gastro-esophageal reflux disease without esophagitis
CPT/HCPCS: 99214

== ENCOUNTER → 2025-03-30 08:34 | Outpatient (BNVA) | payer MEDICAID, SELFPAY | PROVIDERS: PCP Internal Medicine; Visit Provider Nurse Practitioner Family | DX: K59.01 Slow transit constipation (principal); K56.600 Partial intestinal obstruction, unspecified as to cause; K21.9 Gastro-esophageal reflux disease without esophagitis; R10.13 Epigastric pain | CPT/HCPCS: 99212 ==

== ENCOUNTER 2025-05-29 09:00 | Outpatient (AMB) | payer MEDICAID, SELFPAY ==
--- NOTE | 2025-05-29 09:23 | MHC.OFFVIS ---
Vital Signs 05/29/25 09:26 Height 5 ft 6 in Weight 231 lb 8 oz BMI 37.4 BP 112/80 Blood Pressure Location Rt brachial Position Sitting Pulse 80 Pulse Source Pulse Oximeter Pulse Oximetry (%) 98 Oxygen Delivery Method Room Air Intake Visit Reasons: Botox Intake Note: Botox 200 Health Researcher Required: No Accompanied by: Self / Same As Patient Allergies amoxicillin Allergy (Severe, Verified 05/29/25 09:26) yeast infection, itching gabapentin Allergy (Severe, Verified 05/29/25 09:26) Swelling meloxicam Allergy (Severe, Verified 05/29/25 09:26) Swelling baclofen Allergy (Intermediate, Verified 05/29/25 09:26) Swelling, sob lamotrigine Allergy (Unknown, Verified 05/29/25 09:) Swelling acetaminophen (From Tylenol) Adverse Reaction (Intermediate, Verified 05/29/25 09:26) Unknown Medication List - Last Reconciled 05/29/25 by Yas Adam MD acarbose 100 mg PO TID blood pressure monitor Check BP bid and prn lightheadedness buprenorphine 20 mcg/hour (Butrans) 1 patch topical QWEEK celecoxib 200 mg PO DAILY cetirizine (All Day Allergy (cetirizine)) 10 mg PO DAILY PRN cyanocobalamin (vitamin B-12) 200 mcg PO DAILY cyclobenzaprine 10 mg PO BID dicyclomine 10 mg PO DAILY docusate sodium (Colace) 100 mg PO DAILY escitalopram oxalate 5 mg PO DAILY esomeprazole magnesium (Nexium) 40 mg PO DAILY levetiracetam 500 mg PO BID linaclotide (Linzess) 290 mcg PO QAM lurasidone 120 mg PO DAILY nortriptyline 25 mg PO BID ondansetron 4 mg PO Q8H PRN polyethylene glycol 3350 (Miralax) 17 grams PO DAILY riboflavin (vitamin B2) (Vitamin B-2) 200 mg (2 x 100 mg) PO BID 28 days sucralfate 1 g PO BEDTIME tirzepatide (weight loss) (Zepbound) 12.5 mg (0.5 mL) subcut QWEEK trazodone 200 mg PO ONCE valacyclovir 1,000 mg PO DAILY HPI Comments Details: ? 59y/o female comes for treatment of migraines with botox. How many migraine days prior to botox 25-30/month How long do the migraines last 1-2 days Intensity of migraine8-10 ER visits related to migraine 1-2 Effectiveness of botox from last two treatment(s) How many migraine days since receiving treatment:5-10/month Change? in intensity of migraine?decreased Change in frequency of migraine?decreased Change in use of acute medication for migraine?decreased Change in quality of life?improved ER visits related to migraine?none Explanation for any gaps in treatment- hospitalized for syncope, malnutrition Have at least three months elapsed since last treatment (Last botox date - frequency of injections) 3 mths ??? Most frequent reported adverse reactions following injection of botox for chronic migraine include neck pain (9%), headache(5%), eyelid ptosis(4%), migraine(4%), muscular weakness(4%), musculuskeletal stiffness(4%), bronchitis(3%), injection site pain (3%), musculoskeletal pain(3%), myalgia(3%), facial paresis(2%), HTN(2%) and muscle spasms(2%) were discussed in detail. ??? Botulinum toxin typeA 200units Lot no [id number] expiration 08/2027 was diluted with 4 cc of normal saline . ??? Muscles injected ??? Frontalis 4 sites ??? Procerus 1 site ??? Shopper Insights Manager- 2 sites ??? Temporalis- 8 sites ??? Occipitalis- 6 sites ??? Cervical paraspinals- 4 sites ??? Trapezius- 6 sites- 5 units each ??? 5 units each in 31 site ??? Total use- 155units ??? Discarded-45units [facility] Medical History Major depressive disorder, recurrent CVA (cerebral vascular accident) Seizure Personal history of nicotine dependence Cervicalgia Chronic migraine without aura, intractable, without status migrainosus History of low back pain Hx of myocardial infarction (~11/2022) Hx of migraines CKD (chronic kidney disease) History of blood transfusion (~04/2023) Weakness of both legs History of seizures Internal hernia Excess skin of upper extremity Lipoma History of lipoma Sleep apnea with use of continuous positive airway pressure (CPAP) Hypercholesterolemia Type 2 diabetes mellitus Anemia Lymphedema Migraines Anxiety Back pain Arthritis Carpal tunnel syndrome Body mass index (BMI) of 32.0-32.9 in adult Obesity (BMI 30-39.9) Intestinal malabsorption following gastrectomy H/O nephrolithotomy with removal of calculi Surgical History Hx of cataract surgery S/P brachioplasty S/P panniculectomy History of dental surgery (~06/2023) H/O hernia repair History of gastric surgery Hx of colonoscopy Hx of lumpectomy H/O cervical discectomy History of Zane-en-Y gastric bypass S/P carpal tunnel release Hx of section S/P knee replacement History of back surgery Family History Father No problems noted. Mother Arthritis Brother No problems noted. Brother No problems noted. Sister No problems noted. Sister No problems noted. Sister No problems noted. Sister No problems noted. Son No problems noted. Daughter No problems noted. 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, MIDDLE SCHOOL MUSIC TEACHER Caregiver staying overnight: No Housing: House Are you a primary body care manager to a significant other at home: No Do you presently have visiting nurse or other home services: Yes (MIDDLE SCHOOL MUSIC TEACHER 4 hrs/day) Alcohol intake: former Patient Tobacco Use Status: Former Tobacco user Tobacco use type: Cigarette Years Smoked: (former smoker 20pyh quit 2018) Advance Directives Date on File: 07/04/21 service: No Current occupational status: disabled Physical Exam Vital Signs: Last Vital Signs Pulse 80 05/29/25 09:26 BP 112/80 05/29/25 09:26 Pulse Ox 98 05/29/25 09:26 Oxygen Delivery Method Room Air 05/29/25 09:26 BMI result Body Mass Index 37.4 Const Other: Ambulating using a wheeled walker General: healthy appearing and no acute distress Nutritional Appearance: obese Orientation/consciousness: patient oriented x3 Resp Effort & Inspection: normal respiratory effort and able to speak in complete sentences Skin General skin exam: elasticity normal, turgor normal and dry skin Neuro General: patient oriented x3 Psych Appearance: grossly normal Mental Status: mental status grossly normal Office Procedures Botulinum toxin Injection 56752 - Migraine Procedure code (CPT) selection complete Office Meds onabotulinumtoxinA 200 unit solution for injection Performing Provider: Yas Adam MD Performing Location: [facility] Administered by: Yas Adam MD on 05/29/25 12:14 Dose Route Admin Location Dispensed Lot Number Expiration Date [facility] Production Supply Equipment Tender 155 unit subcut 200 units [id number] [employer]OTOX Total Dispensed Waste 200 units 22.5 % Comments: see hpi Assessment & Plan Assessment & Plan (1) Chronic migraine without aura: Comment: w/ neuralgia component over left anabaptism Code(s): G43.709 - Chronic migraine without aura, not intractable, without status migrainosus Category: Medical Qualifiers: Status migrainosus presence: without status migrainosus Intractability: intractable Qualified Code(s): G43.719 - Chronic migraine without aura, intractable, without status migrainosus (2) Chronic migraine without aura, intractable, without status migrainosus: Code(s): G43.719 - Chronic migraine without aura, intractable, without status migrainosus Category: Medical (3) Cervicalgia: Code(s): M54.2 - Cervicalgia Category: Medical Plan Patient tolerated the procedure well . SHe will call with any side effects Orders: Orders AMB Botulinum toxin Injection Today G43.719 - Chronic migraine without aura, intractable, without status migrainosus Coding Level of Care Code Est Pt Level 1 (21211) Diagnoses Intractable chronic migraine without aura and without status migrainosus G43.719 Status migrainosus presence: without status migrainosus Intractability: intractable Chronic migraine without aura, intractable, without status migrainosus G43.719 Cervicalgia M54.2 CPT Codes Botox Injection - Botox 3: 12254 - Migraine ([id number])
[2025-05-29 09:26] VITALS: BP 112/80; PULSE 80; O2SAT 98; BMI 37.4
== END 2025-05-29 10:04 | disposition home or self-care (01) ==
LOC: HO.HSMS 09:00
PROVIDERS: PCP Internal Medicine; Visit Provider Psychiatry & Neurology Neurology
DX: G43.719 Chronic migraine without aura, intractable, without status migrainosus (principal)
CPT/HCPCS: 64615

== ENCOUNTER → 2025-05-29 09:00 | Outpatient (BNVA) | payer MEDICAID, SELFPAY | PROVIDERS: PCP Internal Medicine; Visit Provider Psychiatry & Neurology Neurology | DX: G43.719 Chronic migraine without aura, intractable, without status migrainosus (principal); M54.2 Cervicalgia | CPT/HCPCS: 64615; 99211; J0585 ==